=== PATIENT | male | born 1955 | race Caucasian/White ===

== ENCOUNTER → 2018-11-13 | Outpatient (CLI) | payer MEDICARE, OTHER ==
[~2018-11-13] VITALS: Ht 180.3 cm; Wt 113.9 kg
[~2018-11-13] MED LIST: ACETAMINOPHEN 325 MG TABLET PO SCH; AZAT50TA PO; BUPR100T8 PO; BUPR150T20 PO; CEPH500C PO; CLON1TAB27 PO; CLON1TAB3 PO; CYAN100053 IJ; CYCL10TA9 PO; D50KC PO; DIPH1TAB PO; FEXO-104 PO; FISH OIL 1,2001 EAC1 PO; FLT05NA16 NSEACH; FNT50TD TD; FOLI0.4T2 PO; GLIP10TA13 PO; GLIP2.5T15 PO; INFLIXIMAB DYYB IV SCH; LISI1TAB10 PO; MNTL10T PO; MONT10TA21 PO; NADO20TA PO; NDL40T PO; NS IV 1000 ML 1,000 ML IV SCH; NS IV 1000 ML 1,000 ML ONE; NS.65NA45 NSEACH; OMEG1CAP51 PO; ONDN4T PO; PARO20TA57 PO; PNT40TEC PO; POTA10TA17 PO; PRAS1TAB2 PO; PRAS25CA5 PO; PRD10T PO; PROBIOTIC1 EACH PO; REMICADE IJ; SIMV10TA3 PO; SODIUM CHLORIDE IV SCH; TADA2.5T PO; TRAM300T24 PO; TRAM50TA2 PO; VITAMIN B12 IM; [UNRECOGNIZED DRUG - MIXTURE] PO; diphenhydrAMINE 50 MG/ML INJ (BENADRYL) IV SCH
[2018-11-13 13:33] VITALS: BP 127/79
== END ==
LOC: SDC 09:40 → EDSTATUS 13:00
PROVIDERS: ATTEND Pediatrics
DX: K50.90 Crohn's disease, unspecified, without complications (principal)
CPT/HCPCS: 96365; 96366; Q5102

== ENCOUNTER 2018-11-14 18:50 | Emergency (ER) | payer MEDICARE, OTHER ==
[~2018-11-14] VITALS: Ht 182.9 cm; Wt 106.1 kg
[~2018-11-14 18:50] MED LIST changes: -ACETAMINOPHEN 325 MG TABLET PO SCH; -INFLIXIMAB DYYB IV SCH; -NS IV 1000 ML 1,000 ML IV SCH; -NS IV 1000 ML 1,000 ML ONE; -ONDN4T PO; -SODIUM CHLORIDE IV SCH; -diphenhydrAMINE 50 MG/ML INJ (BENADRYL) IV SCH
[2018-11-14] MEDS ORDERED: ASPIRIN 81 MG CHEW (CHILDREN'S ASA) PO ONE (19:00)
[2018-11-14] MEDS ORDERED: ONDANSETRON 4 MG (ZOFRAN) ORAL DISSOLVE TAB ONE (19:11)
[2018-11-14] MEDS ORDERED: PROMETHAZINE INJ 25 MG/ML (PHENERGAN) AMP ONE (19:48)
[2018-11-14 19:51] LABS: BASOPHILS % (AUTO) 0 % (0-10); EOSINOPHILS # (AUTO) 0.2 10^3/uL (0.0-0.3); EOSINOPHILS % (AUTO) 2 % (0-10); HEMATOCRIT 48 % (40-54); LYMPHOCYTES # (AUTO) 1.6 X 10^3 (1.0-4.0); LYMPHOCYTES % (AUTO) 15 % (12-44); MEAN CORPUSCULAR HEMOGLOBIN 33 PG (25-34); MEAN CORPUSCULAR HGB CONC 33 G/DL (32-36); MEAN CORPUSCULAR VOLUME 98 FL (80-99); MONOCYTES # (AUTO) 0.8 X 10^3 (0.0-1.0); MONOCYTES % (AUTO) 7 % (0-12); NEUTROPHILS % (AUTO) 76 % (42-75); PLATELET COUNT 167 10^3/uL (130-400); RED CELL DISTRIBUTION WIDTH 13.5 % (10.0-14.5); WHITE BLOOD COUNT 10.6 10^3/uL (4.3-11.0)
[2018-11-14 20:08] LABS: INR 0.9 (0.8-1.4); PROTHROMBIN TIME PATIENT 12.2 SEC (12.2-14.7)
[2018-11-14 20:11] LABS: ALANINE AMINOTRANSFERASE 33 U/L (0-55); ALKALINE PHOSPHATASE 59 U/L (40-136); AMYLASE 107 U/L (25-125); BILIRUBIN,TOTAL 0.7 MG/DL (0.1-1.0); BUN/CREATININE RATIO 9; CALCIUM 9.9 MG/DL (8.5-10.1); CARBON DIOXIDE 19 MMOL/L (21-32); CHLORIDE 105 MMOL/L (98-107); CREATININE SERUM 1.13 MG/DL (0.60-1.30); GFR ESTIMATED > 60; GLUCOSE 158 MG/DL (70-105); LIPASE 40 U/L (8-78); MAGNESIUM 1.9 MG/DL (1.8-2.4); POTASSIUM 3.9 MMOL/L (3.6-5.0); SODIUM 139 MMOL/L (135-145); TOTAL PROTEIN 7.6 GM/DL (6.4-8.2)
--- NOTE | 2018-11-14 20:14 | Diagnostic Imaging Report ---
EXAMINATION: Chest radiograph, portable AP view. DATE: November 14, 2018 at 1959 hours. INDICATION: 63-year-old male, chest pain. COMPARISON: January 06, 2012. FINDINGS: Heart size and mediastinal contours are unremarkable. There is no identified pneumothorax. There is no large pleural effusion. There is no identified focal airspace consolidation. IMPRESSION: 1. No identified acute cardiopulmonary abnormality. Dictated by: Dictated on workstation # [id number]
[2018-11-14 20:18] LABS: MYOGLOBIN SERUM 83.2 NG/ML (10.0-92.0)
[2018-11-14 20:27] LABS: ALBUMIN 4.2 GM/DL (3.2-4.5)
[2018-11-14] MEDS ORDERED: NS 100 ML (IVPB) BAG IV ONE (21:00)
[2018-11-14] MEDS ORDERED: IOHEXOL 350 MG/ML 150 ML (OMNIPAQUE 350) VIAL IV ONE (21:00)
[2018-11-14] MEDS ORDERED: RECEIVED CONTRAST (Hold Metformin) IV SCH (21:00)
[2018-11-14] MEDS ORDERED: HYOSCYAMINE 0.125 MG (LEVSIN) TAB PO ONE (21:15)
--- NOTE | 2018-11-14 21:59 | Diagnostic Imaging Report ---
PROCEDURE: CT angiography of the chest with contrast. TECHNIQUE: Multiple contiguous axial images were obtained through the chest after uneventful bolus administration of intravenous contrast. 2D reconstructed CTA MIP acquisitions were also performed. DATE: November 14, 2018. COMPARISON: Chest radiograph November 14, 2018. INDICATION: 63-year-old male, chest pain and difficulty breathing. FINDINGS: There is a 3 mm calcified right middle lobe granuloma on axial image 95. There is very mild reticular nodularity in the left lower lobe on axial image 105 and adjacent sequential images. This is also present in the right lower lobe on axial image 81. There is also very subtle tree-in-bud nodularity in the left upper lobe on axial image 70 and left lower lobe on the same image and adjacent sequential images. This is not radiographically visible. There is no additional focal airspace consolidation. There is no pneumothorax. There is no pleural effusion. The central airways are patent. There is no identified central or segmental pulmonary embolus. The main pulmonary artery is normal in caliber. The heart is not enlarged. There is no pericardial effusion. There are mild atherosclerotic calcifications present. There is no identified abnormally enlarged mediastinal, hilar, or axillary lymph node which meets CT size criteria for adenopathy. The patient is status post cholecystectomy. There are low-attenuation renal lesions partially imaged which may relate to a cyst but cannot be definitively characterized. Additional evaluation of the imaged portions of the upper abdomen is unremarkable. There are degenerative changes of the spine. There is no identified acute bony abnormality. IMPRESSION: CT CHEST. 1. Subtle multifocal areas of tree-in-bud nodularity bilaterally likely relating to a process spreading via endobronchial means which is most typically an infectious bronchiolitis or aspiration. 2. No identified pulmonary embolus. Dictated by: Dictated on workstation # [id number]
[2018-11-14] MEDS ORDERED: NS IV 1000 ML 1,000 ML ONE (22:27)
[2018-11-14] MEDS ORDERED: diphenhydrAMINE 50 MG/ML INJ (BENADRYL) IVP ONE (23:15)
--- NOTE | 2018-11-14 23:26 | ED Chest Pain ---
General Chief Complaint: Chest Pain Stated Complaint: CHEST PAINS Nursing Sepsis Screen: No Definite Risk Source: patient Exam Limitations: no limitations History of Present Illness Date Seen by Provider: Nov 14, 2018 Time Seen by Provider: 18:56 Initial Comments 63 year old male who presents to the emergency room with complains of nausea and vomiting that started this morning around 7:00 and chest pains that started at noon today. 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 He denies shortness of breath. Timing/Duration: 4-6 hours Severity/Quality: pressure Location: epigastric Radiation: no radiation ASA po FIRE WATCHER: No NTG SL FIRE WATCHER: No Associated Symptoms: nausea/vomiting Allergies and Home Medications Allergies Coded Allergies: hydromorphone HCl (Unverified Allergy, Unknown, HIVES, 11/14/18) meperidine HCl (Unverified Allergy, Unknown, N/V, 11/14/18) oxycodone (Unverified Allergy, Unknown, HIVES, 11/14/18) morphine (Unverified Adverse Reaction, Severe, HEART STOPPED, 01/06/12) Home Medications Azathioprine 50 Mg Tablet, 150 MG PO BID, (Reported) Cyanocobalamin 1,000 Mcg/Ml Vial, 1,000 MCG IJ TWICE A MONTH, (Reported) LAST DOSE 12-26-12 Diphenoxylate Hcl/Atrop Sulf 1 Each Tablet, 2 TAB PO UP TO 4 TIMES DAILY PRN, ( Reported) PRN DIARRHEA Ergocalciferol 50,000 Unit Capsule, 50,000 UNIT PO WEEKLY ON FRIDAYS, (Reported) Folic Acid 0.4 Mg Tablet, 0.4 MG PO DAILY, (Reported) Hctz/Lisinopril 1 Tab Tablet, 20-25 MG PO DAILY, (Reported) Lactobacillus Rhamnosus Gg 1 Each Capsule, 1 EACH PO DAILY, (Reported) Montelukast Sodium 10 Mg Tablet, 10 MG PO HS, (Reported) Nadolol 40 Mg Tab, 40 MG PO TID, (Reported) [place]-3 Fatty Acids/Fish Oil 1 Each Capsule, 1,000 MG PO DAILY, (Reported) Ondansetron HCl 4 Mg Tab, 4 MG PO Q4H PRN for NAUSEA/VOMITING-1ST LINE Prescribed by: LUIZA JUÁREZ on 11/15/18 0010 Pantoprazole Sod 40 Mg Tab, 40 MG PO DAILY, (Reported) Paroxetine Hcl 20 Mg Tablet, 20 MG PO DAILY, (Reported) Potassium Citrate 10 Meq Tablet.sa, 20 MEQ PO BID, (Reported) Prednisone 10 Mg Tab, 10 MG PO UD PRN, (Reported) TAKES 5 WEEK TAPER DOSE OF 50MG FOR 1 WEEK, 40MG FOR 1 WEEK, 30MG FOR 1 WEEK , 20MG FOR 1 WEEK, 10MG FOR 1 WEEK PRN CHRON'S FLARE UP Simvastatin 10 Mg Tablet, 10 MG PO HS, (Reported) Tadalafil 2.5 Mg Tablet, 5 MG PO DAILY PRN, (Reported) PRN ED TAKES 1 TAB OF 5MG PRN Tramadol Hcl 50 Mg Tablet, 100 MG PO TID PRN, (Reported) PRN PAIN Patient Home Medication List Home Medication List Reviewed: Yes Review of Systems Review of Systems Constitutional: no symptoms reported, see HPI Cardiovascular: See HPI, Chest Pain Gastrointestinal: See HPI, Nausea, Vomiting All Other Systems Reviewed Negative Unless Noted: Yes Past Pxqplpg-Zhtszw-Lvtrwg Hx Past Med/Social Hx: Reviewed Nursing Past Med/Soc Hx Patient Social History Alcohol Use: Denies Use Recreational Drug Use: No Smoking Status: Never a Smoker Recent Foreign Travel: No Contact w/Someone Who Travel: No Recent Infectious Disease Expo: No Recent Hopitalizations: No Immunizations Up To Date PED Vaccines UTD: Yes Date of Pneumonia Vaccine: Aug 03, 2010 Date of Influenza Vaccine: Jul 03, 2012 Seasonal Allergies Seasonal Allergies: Yes Past Medical History Surgeries: Yes (PT ADMITTED FROM TESTICULAR SURGERY, HERNIA REPAIR) Tonsillectomy, Transurethral Resection Respiratory: No Cardiac: Yes Hypertension Neurological: No Reproductive Disorders: No Sexually Transmitted Disease: No Genitourinary: Yes Kidney Stones Gastrointestinal: Yes Crohns Disease Musculoskeletal: No Endocrine: Yes (CUSHINGS DISEASE) Adrenal Disease HEENT: No 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 0.0oz. 106.611676ez; BMI Method:Stated General Appearance: No Apparent Distress, WD/WN Neck: Full Range of Motion, Normal Inspection, Non Tender Respiratory: Lungs Clear, Normal Breath Sounds, No Accessory Muscle Use, No Respiratory Distress, Other (epigastric tenderness) Cardiovascular: Regular Rate, Rhythm, No Edema, No Gallop, No JVD, No Murmur, Normal Peripheral Pulses Gastrointestinal: Normal Bowel Sounds, No Organomegaly, No Pulsatile Mass Extremity: Normal Capillary Refill, Normal Inspection, Normal Range of Motion, Non Tender, No Calf Tenderness, No Pedal Edema Neurologic/Psychiatric: Alert, Oriented x3, Normal Mood/Affect Skin: Normal Color, Warm/Dry Progress/Results/Core Measures Results/Orders Lab Results Laboratory Tests Test 11/14/18 19:42 11/14/18 21:48 Range/Units White Blood Count 10.6 4.3-11.0 10^3/uL Red Blood Count 4.91 4.35-5.85 10^6/uL Hemoglobin 16.0 13.3-17.7 G/DL Hematocrit 48 40-54 % Mean Corpuscular Volume 98 80-99 FL Mean Corpuscular Hemoglobin 33 25-34 PG Mean Corpuscular Hemoglobin Concent 33 32-36 G/DL Red Cell Distribution Width 13.5 10.0-14.5 % Platelet Count 167 130-400 10^3/uL Mean Platelet Volume 11.0 H 7.4-10.4 FL Neutrophils (%) (Auto) 76 H 42-75 % Lymphocytes (%) (Auto) 15 12-44 % Monocytes (%) (Auto) 7 0-12 % Eosinophils (%) (Auto) 2 0-10 % Basophils (%) (Auto) 0 0-10 % Neutrophils # (Auto) 8.0 H 1.8-7.8 X 10^3 Lymphocytes # (Auto) 1.6 1.0-4.0 X 10^3 Monocytes # (Auto) 0.8 0.0-1.0 X 10^3 Eosinophils # (Auto) 0.2 0.0-0.3 10^3/uL Basophils # (Auto) 0.0 0.0-0.1 10^3/uL Prothrombin Time 12.2 12.2-14.7 SEC INR Comment 0.9 0.8-1.4 Activated Partial Thromboplast Time 27 24-35 SEC D-Dimer 0.56 H 0.00-0.49 UG/ML Sodium Level 139 135-145 MMOL/L Potassium Level 3.9 3.6-5.0 MMOL/L Chloride Level 105 98-107 MMOL/L Carbon Dioxide Level 19 L 21-32 MMOL/L Anion Gap 15 H 5-14 MMOL/L Blood Urea Nitrogen 10 7-18 MG/DL Creatinine 1.13 0.60-1.30 MG/DL Estimat Glomerular Filtration Rate > 60 BUN/Creatinine Ratio 9 Glucose Level 158 H 70-105 MG/DL Calcium Level 9.9 8.5-10.1 MG/DL Corrected Calcium 9.7 8.5-10.1 MG/DL Magnesium Level 1.9 1.8-2.4 MG/DL Total Bilirubin 0.7 0.1-1.0 MG/DL Aspartate Amino Transf (AST/SGOT) 35 H 5-34 U/L Alanine Aminotransferase (ALT/SGPT) 33 0-55 U/L Alkaline Phosphatase 59 40-136 U/L Myoglobin 83.2 10.0-92.0 NG/ML Troponin I < 0.028 < 0.028 <0.028 NG/ML B-Type Natriuretic Peptide 19.2 <100.0 PG/ML Total Protein 7.6 6.4-8.2 GM/DL Albumin 4.2 3.2-4.5 GM/DL Amylase Level 107 25-125 U/L Lipase 40 8-78 U/L My Orders Orders - BERNOT,LUIZA Cbc With Automated Diff (11/14/18 18:56) Magnesium (11/14/18 18:56) Chest 1 View, Ap/Pa Only (11/14/18 18:56) Ekg Tracing (11/14/18 18:56) Cardiac Profile 1 (11/14/18 18:56) Comprehensive Metabolic Panel (11/14/18 18:56) Myoglobin Serum (11/14/18 18:56) Protime With Inr (11/14/18 18:56) Partial Thromboplastin Time (11/14/18 18:56) O2 (11/14/18 18:56) Monitor-Rhythm Ecg Trace Only (11/14/18 18:56) Aspirin Chewable Tablet (Baby Aspirin Ch (11/14/18 19:00) Saline Lock/Iv-Start (11/14/18 18:56) Lipase (11/14/18 18:56) Amylase (11/14/18 18:56) BNP (11/14/18 18:56) Fibrin Degradation Products (11/14/18 18:56) Ondansetron Oral Dissolve Tab (Zofran (11/14/18 19:11) Promethazine Injection (Phenergan Injec (11/14/18 19:48) Ct Angio Chest W (11/14/18 20:54) Iohexol Injection (Omnipaque 350 Mg/Ml 1 (11/14/18 21:00) Contrast Received (Contrast Received) (11/14/18 21:00) Ns (Ivpb) (Sodium Chloride 0.9% Ivpb Bag (11/14/18 21:00) Hyoscyamine Sl Tablet (Levsin Sl Tablet) (11/14/18 21:15) Troponin I (11/14/18 21:32) Ns Iv 1000 Ml (Sodium Chloride 0.9%) (11/14/18 22:27) Diphenhydramine Injection (Benadryl Inje (11/14/18 23:15) Lorazepam Injection (Ativan Injection) (11/14/18 23:30) Rx-Ondansetron Po (Rx-Zofran Po) (11/15/18 00:39) Medications Given in ED Vital Signs/I&O 11/14/18 11/14/18 11/14/18 11/15/18 18:55 18:55 18:55 00:46 Temp 98.2 98.2 Pulse 89 99 Resp 22 20 B/P (MAP) 118/75 (89) 131/72 (91) Pulse Ox 98 96 96 O2 Delivery Room Air Room Air Room Air Room Air Blood Pressure Mean: 89 Progress Progress Note : Time: 21:00 Progress Note I have seen and evaluated the patient I have informed him of his laboratory findings and the need for a CT of his chest. He agrees with further imaging. He is no longer nauseated at this time. 2350: The patient had developed restless legs after medications. Ativan was ordered and has resolved the restless legs. I have informed him of his imaging studies. He agrees with plan of care, plans for discharge, return precautions were given. Initial ECG Impression Date: Nov 10, 2018 Initial ECG Impression Time: 18:57 Initial ECG Rate: 89 Initial ECG Rhythm: Normal Sinus Initial ECG Impression: Normal Initial ECG Comparisson: No Previous ECG Available Diagnostic Imaging Diagonstic Imaging: Xray, CT Plain Films/CT/US/NM/MRI: chest Comments NAME: DONOVAN SANCHEZ [facility] REC#: [id number] PHYSICIAN: LUIZA JUÁREZ CC: LUIZA JUÁREZ; JUANI CAMILO MD Page 2 of 2 RADIOLOGY REPORT [facility] [place] CC: LUIZA JUÁREZ; JUANI CAMILO MD Page 1 of 1 RADIOLOGY REPORT NAME: DONOVAN SANCHEZ [facility] REC#: [id number] PT STATUS: DEP ER : 1955 PHYSICIAN: LUIZA JUÁREZ ADMIT DATE: 11/14/18/ER Signed Date of Exam: 11/14/18 CT ANGIO CHEST W PROCEDURE: CT angiography of the chest with contrast. TECHNIQUE: Multiple contiguous axial images were obtained through the chest after uneventful bolus administration of intravenous contrast. 2D reconstructed CTA MIP acquisitions were also performed. DATE: November 14, 2018. COMPARISON: Chest radiograph November 14, 2018. INDICATION: 63-year-old male, chest pain and difficulty breathing. FINDINGS: There is a 3 mm calcified right middle lobe granuloma on axial image 95. There is very mild reticular nodularity in the left lower lobe on axial image 105 and adjacent sequential images. This is also present in the right lower lobe on axial image 81. There is also very subtle tree-in-bud nodularity in the left upper lobe on axial image 70 and left lower lobe on the same image and adjacent sequential images. This is not radiographically visible. There is no additional focal airspace consolidation. There is no pneumothorax. There is no pleural effusion. The central airways are patent. There is no identified central or segmental pulmonary embolus. The main pulmonary artery is normal in caliber. The heart is not enlarged. There is no pericardial effusion. There are mild atherosclerotic calcifications present. There is no identified abnormally enlarged mediastinal, hilar, or axillary lymph node which meets CT size criteria for adenopathy. The patient is status post cholecystectomy. There are low-attenuation renal lesions partially imaged which may relate to a cyst but cannot be definitively characterized. Additional evaluation of the imaged portions of the upper abdomen is unremarkable. There are degenerative changes of the spine. There is no identified acute bony abnormality. IMPRESSION: CT CHEST. 1. Subtle multifocal areas of tree-in-bud nodularity bilaterally likely relating to a process spreading via endobronchial means which is most typically an infectious bronchiolitis or aspiration. 2. No identified pulmonary embolus. Dictated by: Dictated on workstation # [id number] Dict: 11/14/182150 Trans: 11/15/181704 Interpreted by: JUANI CAMILO MD Electronically signed by: JUANI CAMILO MD 11/15/181704 NAME: DONOVAN SANCHEZ [facility] REC#: [id number] PHYSICIAN: LUIZA JUÁREZ CC: LUIZA JUÁREZ; JUANI CAMILO MD Page 1 of 1 RADIOLOGY REPORT [facility] [place] CC: LUIZA JUÁREZ; JUANI CAMILO MD Page 1 of 1 RADIOLOGY REPORT NAME: DONOVAN SANCHEZ [facility] REC#: [id number] PT STATUS: DEP ER : 1955 PHYSICIAN: LUIZA JUÁREZ ADMIT DATE: 11/14/18/ER Signed Date of Exam: 11/14/18 CHEST 1 VIEW, AP/PA ONLY EXAMINATION: Chest radiograph, portable AP view. DATE: November 14, 2018 at 1959 hours. INDICATION: 63-year-old male, chest pain. COMPARISON: January 06, 2012. FINDINGS: Heart size and mediastinal contours are unremarkable. There is no identified pneumothorax. There is no large pleural effusion. There is no identified focal airspace consolidation. IMPRESSION: 1. No identified acute cardiopulmonary abnormality. Dictated by: Dictated on workstation # [id number] Dict: 11/14/182011 Trans: 11/15/181702 Interpreted by: JUANI CAMILO MD Electronically signed by: JUANI CAMILO MD 11/15/181702 Reviewed: Reviewed by Ok Departure Impression Primary Impression: Chest pain Additional Impressions: Nausea and vomiting reaction to Remicade Disposition: 01 HOME, SELF-CARE Condition: Stable/Unchanged Departure-Patient Inst. Decision time for Depature: 00:04 Referrals: MK CRONIN MD (PCP/Family) Primary Care Physician Patient Instructions: Chest Pain That Is Not Caused by the Heart (DC) Add. Discharge Instructions: Take medications as directed. Follow-up with Dr. Cronin by calling his office tomorrow morning for an appointment time and before you take another dose of your Remicade. Return back to the emergency room for worsening symptoms or concerns as needed. All discharge instructions reviewed with patient and/or family. Voiced understanding. Scripts Ondansetron HCl (Zofran) 4 Mg Tab 4 MG PO Q4H PRN for NAUSEA/VOMITING-1ST LINE, #14 TAB Prov: LUIZA JUÁREZ 11/15/18 LUIZA JUÁREZ Nov 14, 2018 23:26
[2018-11-14] MEDS ORDERED: LORazepam INJ 2 MG/ML (ATIVAN) VIAL IVP ONE (23:30)
[2018-11-15] MEDS ORDERED: ONDN4T PO (00:10)
[2018-11-15] MEDS ORDERED: RX-ONDANSETRON 4 MG ODT (ZOFRAN) PPK #4 ONE (00:39)
[2018-11-15 00:46] VITALS: BP 131/72
== END 2018-11-15 00:46 | disposition home or self-care (01) ==
LOC: EDUNIT# 18:50 → ER 18:51
DX: R07.89 Other chest pain (principal); R11.2 Nausea with vomiting, unspecified; T50.995A Adverse effect of other drugs, medicaments and biological substances, initial encounter; I10 Essential (primary) hypertension; Z98.890 Other specified postprocedural states; Z87.19 Personal history of other diseases of the digestive system; Z87.442 Personal history of urinary calculi; Z88.5 Allergy status to narcotic agent; Z88.8 Allergy status to other drugs, medicaments and biological substances; Z79.52 Long term (current) use of systemic steroids; Z90.89 Acquired absence of other organs; Z90.79 Acquired absence of other genital organ(s)
CPT/HCPCS: 36415; 71045; 71275; 80053; 82150; 83690; 83735; 83874; 83880; 84484; 85025; 85379; 85610; 85730; 93005; 93041

== ENCOUNTER 2018-11-16 11:53 | Inpatient (IN) | payer MEDICARE, OTHER ==
[~2018-11-16] VITALS: Ht 182.9 cm; Wt 115.2 kg
[2018-11-16] VITALS (8 sets, daily range): BP systolic 85–149; BP diastolic 42–94
[~2018-11-16 11:53] MED LIST changes: +ONDN4T PO
[2018-11-16] MEDS: NS IV 1000 ML 1,000 ML IV SCH ×4 (12:55→22:19)
[2018-11-16] MEDS ORDERED: NS IV 500 ML 500 ML ONE (13:02)
[2018-11-16 13:03] LABS: BASOPHILS # (AUTO) 0.1 10^3/uL (0.0-0.1); BASOPHILS % (AUTO) 0 % (0-10); EOSINOPHILS # (AUTO) 0.1 10^3/uL (0.0-0.3); EOSINOPHILS % (AUTO) 0 % (0-10); HEMATOCRIT 43 % (40-54); HEMOGLOBIN 14.3 G/DL (13.3-17.7); LYMPHOCYTES # (AUTO) 0.6 X 10^3 (1.0-4.0); LYMPHOCYTES % (AUTO) 2 % (12-44); MEAN CORPUSCULAR HEMOGLOBIN 32 PG (25-34); MEAN CORPUSCULAR HGB CONC 33 G/DL (32-36); MEAN CORPUSCULAR VOLUME 96 FL (80-99); MEAN PLATELET VOLUME 11.1 FL (7.4-10.4); MONOCYTES # (AUTO) 1.4 X 10^3 (0.0-1.0); MONOCYTES % (AUTO) 6 % (0-12); NEUTROPHILS # (AUTO) 23.9 X 10^3 (1.8-7.8); NEUTROPHILS % (AUTO) 92 % (42-75); PLATELET COUNT 130 10^3/uL (130-400); RED CELL DISTRIBUTION WIDTH 13.6 % (10.0-14.5)
[2018-11-16] MEDS ORDERED: NS IV 500 ML 500 ML IV ONE (13:03)
--- NOTE | 2018-11-16 13:04 | Diagnostic Imaging Report ---
PATIENT HISTORY: Central line placement. TECHNIQUE: Frontal view of the chest COMPARISON: 11/14/2018 FINDINGS: Lung volumes are low. No focal consolidation is seen. There is no pleural effusion or pneumothorax. The cardiac silhouette is upper normal in size. The right-sided jugular line projects over the low SVC. IMPRESSION: 1. The right jugular line tip projects over the low SVC. 2. Low lung volumes with no acute pulmonary abnormality seen. Dictated by: Dictated on workstation # [id number]
--- NOTE | 2018-11-16 13:13 | ED General ---
General Chief Complaint: Hypotension Stated Complaint: LOW BP/SOA Source of Information: Patient, Family Exam Limitations: No Limitations (VIKASH CERVANTES STUDENT) History of Present Illness Date Seen by Provider: Nov 16, 2018 Time Seen by Provider: 12:10 Initial Comments 63 y/o M presented with his daughter for hypotension and shortness of breath. He has been to emergency earlier this week (11/14/18) for uncontrolled nausea and vomiting along with chest pain. He recently was started on Remicade and ever since then has been vomiting. He was treated in the ED at and returned home with zofran and return precautions. His daughter noted that he has still been vomiting and was dizzy last night but refused to go to the hospital. Today , they could not find a blood pressure on him and he was increasingly dizzy and short of breath. He denied fever, chills, and sweats. Timing/Duration: 2-3 Days Severity: Severe Associated Systoms: No Chest Pain, No Cough, No Fever/Chills; Malaise, Nausea/ Vomiting, Shortness of Air; No Syncope (VIKASH CERVANTES STUDENT) Initial Comments Patient also reports that he is having his Crohn's diarrhea and that it is significantly watery and persistent. Denies blood in his urine or stool. Timing/Duration: 2-3 Days Severity: Severe Associated Systoms: Malaise, Nausea/Vomiting, Shortness of Air (GI MENDEZ MD) Allergies and Home Medications Allergies Coded Allergies: hydromorphone HCl (Unverified Allergy, Unknown, HIVES, 11/14/18) meperidine HCl (Unverified Allergy, Unknown, N/V, 11/14/18) oxycodone (Unverified Allergy, Unknown, HIVES, 11/14/18) morphine (Unverified Adverse Reaction, Severe, HEART STOPPED, 01/06/12) Home Medications Azathioprine 50 Mg Tablet, 150 MG PO BID, (Reported) Cyanocobalamin 1,000 Mcg/Ml Vial, 1,000 MCG IJ TWICE A MONTH, (Reported) LAST DOSE 12-26-12 Diphenoxylate Hcl/Atrop Sulf 1 Each Tablet, 2 TAB PO UP TO 4 TIMES DAILY PRN, ( Reported) PRN DIARRHEA Ergocalciferol 50,000 Unit Capsule, 50,000 UNIT PO WEEKLY ON FRIDAYS, (Reported) Folic Acid 0.4 Mg Tablet, 0.4 MG PO DAILY, (Reported) Hctz/Lisinopril 1 Tab Tablet, 20-25 MG PO DAILY, (Reported) Lactobacillus Rhamnosus Gg 1 Each Capsule, 1 EACH PO DAILY, (Reported) Montelukast Sodium 10 Mg Tablet, 10 MG PO HS, (Reported) Nadolol 40 Mg Tab, 40 MG PO TID, (Reported) Genoa-3 Fatty Acids/Fish Oil 1 Each Capsule, 1,000 MG PO DAILY, (Reported) Ondansetron HCl 4 Mg Tab, 4 MG PO Q4H PRN for NAUSEA/VOMITING-1ST LINE Prescribed by: LUIZA JUÁREZ on 11/15/18 0010 Pantoprazole Sod 40 Mg Tab, 40 MG PO DAILY, (Reported) Paroxetine Hcl 20 Mg Tablet, 20 MG PO DAILY, (Reported) Potassium Citrate 10 Meq Tablet.sa, 20 MEQ PO BID, (Reported) Prednisone 10 Mg Tab, 10 MG PO UD PRN, (Reported) TAKES 5 WEEK TAPER DOSE OF 50MG FOR 1 WEEK, 40MG FOR 1 WEEK, 30MG FOR 1 WEEK , 20MG FOR 1 WEEK, 10MG FOR 1 WEEK PRN CHRON'S FLARE UP Simvastatin 10 Mg Tablet, 10 MG PO HS, (Reported) Tadalafil 2.5 Mg Tablet, 5 MG PO DAILY PRN, (Reported) PRN ED TAKES 1 TAB OF 5MG PRN Tramadol Hcl 50 Mg Tablet, 100 MG PO TID PRN, (Reported) PRN PAIN Patient Home Medication List Home Medication List Reviewed: Yes (VIKASH CERVANTES) Home Medication List Reviewed: Yes (GI MENDEZ MD) Review of Systems Review of Systems Constitutional: No chills; dizziness; No fever; malaise, weakness EENTM: no symptoms reported Respiratory: No cough; dyspnea on exertion, short of breath; No wheezing Cardiovascular: No chest pain, No palpitations, No syncope Gastrointestinal: No hematemesis; nausea, vomiting Genitourinary: No dysuria, No frequency Musculoskeletal: No back pain, No joint pain; muscle cramps Skin: change in color (bruising from multiple attempts at IV placement last visit); No lesions, No lumps, No rash Psychiatric/Neurological: Denies Headache, Denies Numbness; Weakness (VIKASH CARLOS STUDENT) Gastrointestinal: No abdominal pain; diarrhea, nausea, vomiting (GI MENDEZ MD) All Other Systems Reviewed Negative Unless Noted: Yes (GI MENDEZ MD) Past Ipczfzb-Xabbgr-Snihdh Hx Past Med/Social Hx: Reviewed Nursing Past Med/Soc Hx (GI MENDEZ MD) Patient Social History Recent Foreign Travel: No Contact w/Someone Who Travel: No Recent Hopitalizations: No (VIKASH CERVANTES) Immunizations Up To Date PED Vaccines UTD: Yes Date of Pneumonia Vaccine: Aug 03, 2010 Date of Influenza Vaccine: Jul 03, 2012 (VIKASH CERVANTES) Seasonal Allergies Seasonal Allergies: Yes (VIKASH CERVANTES) Past Medical History Surgeries: Yes (PT ADMITTED FROM TESTICULAR SURGERY, HERNIA REPAIR) Tonsillectomy, Transurethral Resection Respiratory: No Cardiac: Yes Hypertension Neurological: No Reproductive Disorders: No Sexually Transmitted Disease: No Genitourinary: Yes Kidney Stones Gastrointestinal: Yes Crohns Disease Musculoskeletal: No Endocrine: Yes (CUSHINGS DISEASE) Adrenal Disease HEENT: No 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) Skin (basal cell CA, successfully removed) Did You Recieve Any Treatments: Yes What Type of Treatment Did You: Surgical Intervention Psychosocial: No Integumentary: No Blood Disorders: No (VIKASH CERVANTES) Family Medical History Reviewed Nursing Family Hx (VIKASH CERVANTES) Reviewed Nursing Family Hx (GI MENDEZ MD) No Pertinent Family Hx (VIKASH CERVANTES) No Pertinent Family Hx (GI MENDEZ MD) Physical Exam Vital Signs Vital Signs - First Documented 11/16/18 11:55 Temp 99.1 Pulse 90 Resp 25 B/P (MAP) 82/44 (57) Pulse Ox 97 O2 Delivery Room Air (GI MENDEZ MD) Vital Signs Capillary Refill : Less Than 3 Seconds (VIKASH CERVANTES STUDENT) Height, Weight, BMI Height: 6'0" Weight: 234lbs. 0.0oz. [id number]; BMI Method:Stated General Appearance: Chronically ill, Mild Distress, Obese Eyes: Bilateral Eye Normal Inspection, Bilateral Eye PERRL, Bilateral Eye EOMI HEENT: PERRL/EOMI, TMs Normal, Pharyngeal Erythema, Other (dry mucus membranes) Neck: Full Range of Motion, Normal Inspection, Non Tender, Supple Respiratory: Chest Non Tender, Lungs Clear, Normal Breath Sounds, No Accessory Muscle Use, No Respiratory Distress Cardiovascular: Regular Rate, Rhythm, No Edema, No Gallop, No JVD, No Murmur, Other (hypotension ) Gastrointestinal: Normal Bowel Sounds, Non Tender, Soft Back: Normal Inspection, No CVA Tenderness, No Vertebral Tenderness Extremity: Normal Inspection, Normal Range of Motion, Non Tender, No Calf Tenderness, No Pedal Edema Neurologic/Psychiatric: Alert, Oriented x3, No Motor/Sensory Deficits, Normal Mood/Affect Skin: Normal Color, Warm/Dry (VIKASH CERVANTES STUDENT) General Appearance: Chronically ill, Mild Distress, Obese HEENT: Pharyngeal Erythema, Other (dry mucus membranes) Neck: Non Tender, Supple Respiratory: Lungs Clear, Normal Breath Sounds Cardiovascular: Regular Rate, Rhythm, No Edema, No Murmur Gastrointestinal: Non Tender, Soft Back: Normal Inspection, No CVA Tenderness, No Vertebral Tenderness Extremity: Normal Inspection, Normal Range of Motion, Non Tender, No Calf Tenderness, No Pedal Edema Neurologic/Psychiatric: Alert, Oriented x3, Normal Mood/Affect Skin: Warm/Dry, Pallor (GI MENDEZ MD) Focused Exam Lactate Level 11/16/18 12:55: Lactic Acid Level 1.92 (GI MENDEZ MD) Lactic Acid Level Laboratory Tests Test 11/16/18 12:55 Lactic Acid Level 1.92 MMOL/L (0.50-2.00) (GI MENDEZ MD) Procedures/Interventions Lumen: triple Central Line Procedure: betadine prep, sterile drapes applied, sterile dressing applied Position: internal jugular (R) Anesthesia: Lidocaine Volume Anesthetic (ccs): 5 Complications: none Post Position: sutured, good blood return, position confirmed w/ CXR Central line placed due to significant hypotension and inability to get peripheral access. Also need for blood draws and likely need for blood pressure support. Discussed risk and benefits with patient who agreed. Central line placed times one stick with ultrasound guidance without complications. Tolerated procedure well with no complications. (GI MENDEZ MD) Progress/Results/Core Measures Suspected Sepsis SIRS Temperature:97.6 Pulse: 95 Respiratory Rate: 18 Laboratory Tests 11/16/18 12:55: White Blood Count 26.0H Blood Pressure 149 /94 Mean: 112 11/16/18 12:55: Lactic Acid Level 1.92 Laboratory Tests 11/16/18 12:55: Platelet Count 130 (VIKASH CERVANTES Dorina CYNTHIA) Results/Orders Lab Results Laboratory Tests Test 11/16/18 12:55 11/16/18 13:20 Range/Units White Blood Count 26.0 H 4.3-11.0 10^3/uL Red Blood Count 4.50 4.35-5.85 10^6/uL Hemoglobin 14.3 13.3-17.7 G/DL Hematocrit 43 40-54 % Mean Corpuscular Volume 96 80-99 FL Mean Corpuscular Hemoglobin 32 25-34 PG Mean Corpuscular Hemoglobin Concent 33 32-36 G/DL Red Cell Distribution Width 13.6 10.0-14.5 % Platelet Count 130 130-400 10^3/uL Mean Platelet Volume 11.1 H 7.4-10.4 FL Neutrophils (%) (Auto) 92 H 42-75 % Lymphocytes (%) (Auto) 2 L 12-44 % Monocytes (%) (Auto) 6 0-12 % Eosinophils (%) (Auto) 0 0-10 % Basophils (%) (Auto) 0 0-10 % Neutrophils # (Auto) 23.9 H 1.8-7.8 X 10^3 Lymphocytes # (Auto) 0.6 L 1.0-4.0 X 10^3 Monocytes # (Auto) 1.4 H 0.0-1.0 X 10^3 Eosinophils # (Auto) 0.1 0.0-0.3 10^3/uL Basophils # (Auto) 0.1 0.0-0.1 10^3/uL Neutrophils % (Manual) 72 % Lymphocytes % (Manual) 2 % Monocytes % (Manual) 4 % Eosinophils % (Manual) 0 % Basophils % (Manual) 0 % Band Neutrophils 21 % Reactive Lymphocytes 1 % Toxic Granulation 3+ Blood Morphology Comment NORMAL Prothrombin Time 14.2 12.2-14.7 SEC INR Comment 1.1 0.8-1.4 Activated Partial Thromboplast Time 32 24-35 SEC Sodium Level 130 L 135-145 MMOL/L Potassium Level 3.5 L 3.6-5.0 MMOL/L Chloride Level 100 98-107 MMOL/L Carbon Dioxide Level 17 L 21-32 MMOL/L Anion Gap 13 5-14 MMOL/L Blood Urea Nitrogen 24 H 7-18 MG/DL Creatinine 3.12 #H 0.60-1.30 MG/DL Estimat Glomerular Filtration Rate 20 BUN/Creatinine Ratio 8 Glucose Level 116 H 70-105 MG/DL Lactic Acid Level 1.92 0.50-2.00 MMOL/L Calcium Level 8.5 8.5-10.1 MG/DL Corrected Calcium 8.7 8.5-10.1 MG/DL Total Bilirubin 1.1 H 0.1-1.0 MG/DL Aspartate Amino Transf (AST/SGOT) 43 H 5-34 U/L Alanine Aminotransferase (ALT/SGPT) 32 0-55 U/L Alkaline Phosphatase 38 L 40-136 U/L Troponin I < 0.028 <0.028 NG/ML Total Protein 6.9 6.4-8.2 GM/DL Albumin 3.7 3.2-4.5 GM/DL Urine Color YELLOW Urine Clarity SLIGHTLY CLOUDY Urine pH 5 5-9 Urine Specific [place] 1.030 H 1.016-1.022 Urine Protein 3+ H NEGATIVE Urine Glucose (UA) 1+ H NEGATIVE Urine Ketones 1+ H NEGATIVE Urine Nitrite POSITIVE H NEGATIVE Urine Bilirubin 1+ H NEGATIVE Urine Urobilinogen 1 NORMAL MG/DL Urine Leukocyte Esterase 1+ H NEGATIVE Urine RBC (Auto) 4+ H NEGATIVE Urine RBC RARE /HPF Urine WBC 0-2 /HPF Urine Squamous Epithelial Cells RARE /HPF Urine Renal Epithelial Cells NONE /HPF Urine Crystals PRESENT H /LPF Urine Amorphous Sediment MOD ZUHAIR URATES H /LPF Urine Bacteria MODERATE H /HPF Urine Casts PRESENT /LPF Urine Hyaline Casts 10-25 H /LPF Urine Mucus NEGATIVE /LPF Urine Culture Indicated NO (GI MENDEZ MD) My Orders Orders - GI MENDEZ MD Saline Lock/Iv-Start (11/16/18 13:03) Ns Iv 500 Ml (Sodium Chloride 0.9%) (11/16/18 13:03) Ns Iv 500 Ml (Sodium Chloride 0.9%) (11/16/18 13:02) Norepinephrine (Levophed) (11/16/18 14:00) Ns (Ivpb) (Sodium Chloride 0.9%) (11/16/18 13:53) Norepinephrine (Levophed) (11/16/18 13:53) Saline Lock/Iv-Start (11/16/18 14:05) Ns Iv 1000 Ml (Sodium Chloride 0.9%) (11/16/18 14:05) Hydrocortisone Injection (Solu-Cortef In (11/16/18 14:15) Ct Abdomen/Pelvis Wo (11/16/18 14:20) Piperacillin Sodium/Tazobactam (Zosyn Vi (11/16/18 14:30) (GI MENDEZ MD) Medications Given in ED Current Medications Medications Dose Ordered Sig/Rui Route Start Time Stop Time Status Last Admin Dose Admin Hydrocortisone Sodium Succinate 100 mg ONCE ONCE IV 11/16/18 14:15 11/16/18 14:16 DC 11/16/18 14:39 100 MG Piperacillin Sod/ Tazobactam Sod 4.5 gm/Sodium Chloride 100 ml @ 200 mls/hr ONCE ONCE IV 11/16/18 14:30 11/16/18 14:59 DC 11/16/18 14:39 200 MLS/HR Sodium Chloride 500 ml @ 0 mls/hr Q0M ONCE IV 11/16/18 13:03 11/16/18 13:05 DC 11/16/18 13:28 0 MLS/HR Sodium Chloride 1,000 ml @ 250 mls/hr Q4H ONCE IV 11/16/18 14:05 11/16/18 18:04 11/16/18 14:10 250 MLS/HR (GI MENDEZ MD) Vital Signs/I&O 11/16/18 11/16/18 11:55 12:50 Temp 99.1 97.6 Pulse 90 95 Resp 25 18 B/P (MAP) 82/44 (57) 149/94 (112) Pulse Ox 97 95 O2 Delivery Room Air (GI MENDEZ MD) Vital Signs/I&O Capillary Refill : Less Than 3 Seconds (VIKASH CERVANTES STUDENT) Blood Pressure Mean: 112 Progress Note : Time: 12:10 Progress Note Patient hypotensive with a MAP of 59. Orders for labs and 3.5 L IVF put in by Dr. Mendez. 1225: central line placed, CXR and EKG obtained (VIKASH CERVANTES STUDENT) Progress Note : Progress Note I have seen and evaluated the patient and agree with above except as indicated. I have directed the plan of care. Patient is hypotensive and the range of 70s over 30s and 40s persistently despite fluid. Central line placement indicated and placed as above. Post chest x-ray shows line in good position without pneumonia or pneumothorax. Florence catheter placed to monitor urine output. Blood cultures, lactic acid and labs ordered. EKG ordered. Monitor patient. Patient did get orders for 3.5 L of normal saline which exceeds 30 mL/ kg dosing. 1410: Blood pressure remains less than 90 systolic despite high volume fluid resuscitation. We will initiate Levophed drip at 5 mcg/m to achieve blood pressure greater than 90 systolic and greater than 65 map. Hydrocortisone 100 mg IV ordered as patient has previously been on prednisone but has not been on it for 3 weeks. Still concerns about adrenal crisis as we' re not finding infective concerns yet to this point in the evaluation. UA still pending and we will get CT scan of the abdomen and pelvis without contrast to look for intra-abdominal pathology. Monitor patient. 1619: We are able to obtain a ICU bed here. I discussed the case with Dr. Jain. Patient was noted to have urinary tract infection and small bowel obstruction. Did receive Zosyn 4.5 g IV earlier. 1625: I did discuss the case with Dr. Constantino and he accepts patient and consult with Dr. Jain excepting patient primary, inpatient status. 1638: I discussed with the patient and family who agree with plan. I attest a focused exam at this time. Blood pressures remained greater than 90 systolic and 65 map currently and patient states he feels a little better overall. On Levophed at 5 mcg/m still. (GI MENDEZ MD) ECG Initial ECG Impression Date: Nov 16, 2018 Initial ECG Impression Time: 12:49 Initial ECG Rate: 80 Initial ECG Rhythm: PAC Comment Sinus rhythm. Normal axis. Multiple premature atrial complexes. No evidence of STEMI. Similar to previous EKG on 11/14/18. Interpreted by Dr. Mendez. (VIKASH CERVANTES STUDENT) Diagnostic Imaging Diagonstic Imaging: Xray Plain Films/CT/US/NM/MRI: chest Comments [facility], [facility]. [place], [place] NAME: DONOVAN SANCHEZ [facility] REC#: [id number] PT STATUS: REG ER : 1955 PHYSICIAN: JYOTI KYLE APRN ADMIT DATE: 11/16/18/ER Draft Date of Exam:11/16/18 CHEST 1 VIEW, AP/PA ONLY PATIENT HISTORY: Central line placement. TECHNIQUE: Frontal view of the chest COMPARISON: 11/14/2018 FINDINGS: Lung volumes are low. No focal consolidation is seen. There is no pleural effusion or pneumothorax. The cardiac silhouette is upper normal in size. The right-sided jugular line projects over the low SVC. IMPRESSION: 1. The right jugular line tip projects over the low SVC. 2. Low lung volumes with no acute pulmonary abnormality seen. Dictated on workstation # [id number] Dict: 11/16/18 1301 Trans: 11/16/18 1304 [facility] [id number] Interpreted by: DAINA ROOT MD Electronically signed by: Time of Consult: 13:01 (VIKASH CERVANTES STUDENT) Diagonstic Imaging: CT Plain Films/CT/US/NM/MRI: abdomen, pelvis Comments NAME: DONOVAN SANCHEZ [facility] REC#: [id number] PT STATUS: REG ER : 1955 PHYSICIAN: GI MENDEZ MD ADMIT DATE: 11/16/18/ER Draft Date of Exam:11/16/18 CT ABDOMEN/PELVIS WO PROCEDURE: CT abdomen and pelvis without contrast. TECHNIQUE: Multiple contiguous axial images were obtained through the abdomen and pelvis without the use of intravenous contrast. INDICATION: Abdominal pain. Patient has history of Crohn's disease with a prior abdominal surgery. COMPARISON: Correlation is made with prior CT from 12/28/2012. FINDINGS: The lung bases are clear. No discrete liver mass is seen. Gallbladder is surgically absent. No biliary ductal dilatation is seen. The pancreas and spleen are unremarkable. No adrenal mass is detected. Bilateral nonobstructing renal calculi are seen. No ureteral calculi or hydronephrosis is seen. Cortical low-density lesions involving the kidneys are noted. The largest is in the lower pole of the left kidney measuring 4.1 cm compared with 2.1 cm on prior. Density measurements are consistent with fluid and likely owing to a cyst. Aorta is calcified but nonaneurysmal. Postsurgical changes in the right lower quadrant are noted. There are some mild to moderately dilated and fluid-filled small bowel loops in the central and left abdomen. There appears to be a transition zone in the mid to distal small bowel with normal caliber small bowel loops in the right lower quadrant. Small bowel obstruction cannot be entirely excluded. No wall thickening, pneumatosis, or free air is seen. There is no free fluid or fluid collection identified. No significant inflammatory changes are seen. The bladder is decompressed by a Florence catheter. IMPRESSION: 1. Bilateral nonobstructing nephrolithiasis. 2. Enlarging left lower pole renal cyst. 3. Moderate fluid-filled distention of small bowel loops in the central and left abdomen with transition in the mid to distal small bowel, suspicious for small bowel obstruction. No fluid collection or free air is detected. Dictated on workstation # [id number] Dict: 11/16/18 1511 Trans: 11/16/18 1520 [id number] Interpreted by: FANTASMA RADER MD Electronically signed by: (GI MENDEZ MD) Departure Communication (Admissions) Time/Spoke to Admitting Phy: 16:19 Time/Spoke to Consulting Phy: 16:25 (GI MENDEZ MD) Impression Primary Impression: Urinary tract infection Qualified Codes: N30.00 - Acute cystitis without hematuria Additional Impressions: Small bowel obstruction Severe sepsis Disposition: 09 ADMITTED INPATIENT Condition: Stable Admissions Decision to Admit Reason: Admit from ER (General) Decision to Admit/Date: Nov 16, 2018 Time/Decision to Admit Time: 16:19 (GI MENDEZ MD) Departure-Patient Inst. Referrals: MK CRONIN MD (PCP/Family) Primary Care Physician VIKASH CERVANTES Nov 16, 2018 13:13 GI MENDEZ MD Nov 16, 2018 14:20
[2018-11-16 13:18] LABS: INR 1.1 (0.8-1.4); PROTHROMBIN TIME PATIENT 14.2 SEC (12.2-14.7)
[2018-11-16 13:20] LABS: ALANINE AMINOTRANSFERASE 32 U/L (0-55); ALBUMIN 3.7 GM/DL (3.2-4.5); ALKALINE PHOSPHATASE 38 U/L (40-136); BILIRUBIN,TOTAL 1.1 MG/DL (0.1-1.0); BUN/CREATININE RATIO 8; CALCIUM 8.5 MG/DL (8.5-10.1); CARBON DIOXIDE 17 MMOL/L (21-32); CHLORIDE 100 MMOL/L (98-107); CREATININE SERUM 3.12 MG/DL (0.60-1.30); GFR ESTIMATED 20; GLUCOSE 116 MG/DL (70-105); POTASSIUM 3.5 MMOL/L (3.6-5.0); SODIUM 130 MMOL/L (135-145); TOTAL PROTEIN 6.9 GM/DL (6.4-8.2)
[2018-11-16 13:42] LABS: BILIRUBIN,URINE 1+ (NEGATIVE); CLARITY,URINE SLIGHTLY CLOUDY; COLOR,URINE YELLOW; GLUCOSE, URINE (UA) 1+ (NEGATIVE); KETONES,URINE 1+ (NEGATIVE); LEUKOCYTE ESTERASE ,URINE 1+ (NEGATIVE); PH,URINE 5 (5-9); PROTEIN,URINE 3+ (NEGATIVE); UROBILINOGEN,URINE 1 MG/DL (NORMAL)
[2018-11-16 13:48] LABS: BAND NEUTROPHILS 21 %; BASOPHILS % (MANUAL) 0 %; EOSINOPHILS % (MANUAL) 0 %; LYMPHOCYTES % (MANUAL) 2 %; MONOCYTES % (MANUAL) 4 %; NEUTROPHILS % (MANUAL) 72 %; REACTIVE LYMPHOCYTES 1 %
[2018-11-16 13:49] LABS: RBC MORPH NORMAL; TOXIC GRANULATION/VACUOLAZATIO 3+
[2018-11-16] MEDS ORDERED: NS (IVPB) 250 ML ONE (13:53)
[2018-11-16] MEDS ORDERED: NOREPINEPHRINE 4 MG/4 ML (LEVOPHED) AMP IV ONE (13:53)
[2018-11-16] MEDS ORDERED: NOREPINEPHRINE 4 MG in NS (IVPB) 250 ML IV SCH (14:00)
[2018-11-16] MEDS ORDERED: NS IV 1000 ML 1,000 ML IV ONE (14:05)
[2018-11-16 14:08] LABS: AMORPHOUS SEDIMENT,UR MOD AMOR URATES /LPF; BACTERIA,URINE MODERATE /HPF; NITRITE,URINE POSITIVE (NEGATIVE); RBC,URINE RARE /HPF; SQUAMOUS EPITHELIAL CELL,UR RARE /HPF; WBC,URINE 0-2 /HPF
[2018-11-16] MEDS ORDERED: HYDROCORTISONE 100 MG/2 ML (Solu-CORTEF) VIAL IV ONE (14:15)
[2018-11-16] MEDS ORDERED: PIPERACILLIN SODIUM/TAZOBACTAM 4.5 GM in NS (IVPB) 100 ML IV ONE (14:30)
--- NOTE | 2018-11-16 15:20 | Diagnostic Imaging Report ---
PROCEDURE: CT abdomen and pelvis without contrast. TECHNIQUE: Multiple contiguous axial images were obtained through the abdomen and pelvis without the use of intravenous contrast. INDICATION: Abdominal pain. Patient has history of Crohn's disease with a prior abdominal surgery. COMPARISON: Correlation is made with prior CT from 12/28/2012. FINDINGS: The lung bases are clear. No discrete liver mass is seen. Gallbladder is surgically absent. No biliary ductal dilatation is seen. The pancreas and spleen are unremarkable. No adrenal mass is detected. Bilateral nonobstructing renal calculi are seen. No ureteral calculi or hydronephrosis is seen. Cortical low-density lesions involving the kidneys are noted. The largest is in the lower pole of the left kidney measuring 4.1 cm compared with 2.1 cm on prior. Density measurements are consistent with fluid and likely owing to a cyst. Aorta is calcified but nonaneurysmal. Postsurgical changes in the right lower quadrant are noted. There are some mild to moderately dilated and fluid-filled small bowel loops in the central and left abdomen. There appears to be a transition zone in the mid to distal small bowel with normal caliber small bowel loops in the right lower quadrant. Small bowel obstruction cannot be entirely excluded. No wall thickening, pneumatosis, or free air is seen. There is no free fluid or fluid collection identified. No significant inflammatory changes are seen. The bladder is decompressed by a Florence catheter. IMPRESSION: 1. Bilateral nonobstructing nephrolithiasis. 2. Enlarging left lower pole renal cyst. 3. Moderate fluid-filled distention of small bowel loops in the central and left abdomen with transition in the mid to distal small bowel, suspicious for small bowel obstruction. No fluid collection or free air is detected. Dictated by: Dictated on workstation # [id number]
--- NOTE | 2018-11-16 17:04 | History & Physical-Hospitalist ---
History of Present Illness HPI/Chief Complaint Pt is a 63yoCM with a PMH of bowel perf s/p resection, Crohn disease on chronic ummune supression, HTN who presented to the ER from his PCPs office for hypotension. He states that he was started on Inflexa for the first time on 11/13 and did not tolerate it well. He left his infusion with a headache and then developed severe nausea, vomiting, and diarrhea. He was seen in the ER on 11/14 and given IVF and DC-ed home. He followed up with his PCP today and was found to have a BP of 60/30 and sent to the ER for evaluation. He complains of watery diarrhea and cramping abdominal pain still. He had scant urine output on presentation as well. Source: patient Date Seen 11/16/18 Time Seen by a Provider: 16:30 Attending Physician Pranay Jain MD PCP Orville Willard MD Referring Physician Date of Admission Nov 16, 2018 at 16:30 Home Medications & Allergies Home Medications Reviewed patient Home Medication Reconciliation performed by pharmacy medication reconciliations edger technician and/or nursing. Patients Allergies have been reviewed. Allergies Allergies Coded Allergies morphine (Unverified Allergy, Severe, HEART STOPPED, 11/17/18) hydromorphone HCl (Unverified Allergy, Unknown, HIVES, 11/14/18) oxycodone (Unverified Allergy, Unknown, HIVES, 11/14/18) meperidine HCl (Unverified Adverse Reaction, Mild, N/V, 11/17/18) Past Ymxvkmd-Pbdcbw-Mwlhgz Hx Past Med/Social Hx: Reviewed Nursing Past Med/Soc Hx Patient Social History Alcohol Use: Denies Use Recreational Drug Use: No Smoking Status: Never a Smoker Recent Foreign Travel: No Contact w/other who traveled: No Recent Hopitalizations: No Recent Infectious Disease Expo: No Immunizations Up To Date Pediatric: Yes Date of Pneumonia Vaccine: Aug 03, 2010 Date of Influenza Vaccine: Jul 03, 2012 Seasonal Allergies Seasonal Allergies: Yes Past Medical History Surgeries: Abdominal (bowel resection), Tonsillectomy, Transurethral Resection , Vasectomy Cardiac: Hypertension Reproductive: No Sexually Transmitted Disease: No Genitourinary: Kidney Stones Gastrointestinal: Crohns Disease Endocrine: Adrenal Disease Cancer: Skin (basal cell CA, successfully removed) Did You Recieve Any Treatments: Yes What Type of Treatment Did You: Surgical Intervention History of Blood Disorders: No Family History Reviewed Nursing Family Hx No Pertinent Family Hx Review of Systems Constitutional: weakness Respiratory: cough; No short of breath Cardiovascular: No chest pain, No palpitations Gastrointestinal: see HPI, abdominal pain, diarrhea, nausea Genitourinary: decreased output Musculoskeletal: muscle cramps Psychiatric/Neurological: Headache, Weakness Physical Exam Physical Exam Vital Signs Vital Signs - First Documented 11/16/18 11/16/18 11/16/18 11:55 20:25 21:12 Temp 99.1 Pulse 90 Resp 25 B/P (MAP) 82/44 (57) Pulse Ox 97 O2 Delivery Room Air O2 Flow Rate 2.00 FiO2 21 Capillary Refill : Less Than 3 Seconds Height, Weight, BMI Height: 6'0" Weight: 250lbs. 0.0oz. 113.549282zs; BMI Method:Stated General Appearance: No Apparent Distress, WD/WN, Obese HEENT: PERRL/EOMI, Other (dry mucous membranes) Neck: Normal Inspection, Supple Respiratory: Lungs Clear, No Accessory Muscle Use, No Respiratory Distress Cardiovascular: Regular Rate, Rhythm, No JVD, No Murmur Gastrointestinal: Non Tender, Soft, Abnormal Bowel Sounds (quiet) Extremity: Normal Capillary Refill, No Calf Tenderness, No Pedal Edema Neurologic/Psychiatric: Alert, Oriented x3, No Motor/Sensory Deficits, Normal Mood/Affect Skin: Normal Color, Warm/Dry; No Mottled, No Petechia Comments focused exam done Results Results/Procedures Labs Laboratory Tests 11/16/18 12:55 11/17/18 03:40 Patient resulted labs reviewed. Imaging: Reviewed Imaging Report Assessment/Plan Admission Diagnosis Septic Shock Admission Status: Inpatient Order (span 2 midnights) Reason for Inpatient Admission: ICU, vasopressors, await cultures Diagnosis/Problems Diagnosis/Problems (1) Septic shock Assessment & Plan: Hypotensive despite fluid resuscitation Currently on Levophed UTI as source, await cultures Vanc/Zosyn (2) CT (acute kidney injury) Assessment & Plan: Creatinine 3.12 up from 1.13 2 days ago Continue IVF Check a CK given 4+ RBCs on UA and none seen on microscopy (3) Small bowel obstruction Status: Acute Assessment & Plan: Dr Bravo consulted appreciate recs NPO (4) UTI (urinary tract infection) Status: Acute Assessment & Plan: Continue Vanc and Zosyn Qualifiers: Urinary tract infection type: acute cystitis Hematuria presence: without hematuria Qualified Codes: N30.00 - Acute cystitis without hematuria (5) Essential (primary) hypertension Assessment & Plan: Hold home meds (6) Crohn disease Status: Chronic Assessment & Plan: Received Inflexa on 11/13 Qualifiers: Gastrointestinal tract location: unspecified location Digestive disease complication type: unspecified complication Qualified Codes: K50.919 - Crohn' s disease, unspecified, with unspecified complications (7) Immunosuppressed status Assessment & Plan: On chronic immune suppression Cover with broad spectrum abx Continue PRANAY Gibson MD Nov 16, 2018 17:04
--- NOTE | 2018-11-16 17:54 | NUR ---
650ML URINE OUTPUT. 2 WATERY BM IN ER.
[2018-11-16] MEDS: NOREPINEPHRINE 4 MG in NS (IVPB) 250 ML IV SCH (18:24)
--- NOTE | 2018-11-16 18:28 | Consultation ---
History of Present Illness History of Present Illness Patient Consulted On(augusto/time) 11/16/18 18:22 Time Seen by Provider: 17:53 History of Present Illness Surgery asked to consult regarding possible SBO. HPI per ED: Pt is a 63yoCM with a PMH of bowel perf s/p resection, Crohn disease on chronic ummune supression, HTN who presented to the ER from his PCPs office for hypotension. He states that he was started on Inflexa for the first time on 11/13/18 and did not tolerate it well. He left his infusion with a headache and then developed severe nausea, vomiting, and diarrhea. He was seen in the ER on 11/14 and given IVF and DC-ed home. He followed up with his PCP today and was found to have a BP of 60/30 and sent to the ER for evaluation. He complains of watery diarrhea and cramping abdominal pain still. He had scant urine output on presentation as well. When I spoke to pt he states he has had abdominal pain for appx a month; that he related to his GI doctor and he was started on a dose of steroids. Pain did not really improve and about a week and a half ago the diarrhea "got really bad". He states today he has had 3 episodes of "water just pouring out of me". He usually takes Remicaid and on Tuesday he was given Inflexa; "which seemed to make everything worse". He also complains of bloating and states he has not had pain since he was first diagnosed with Crohn's 13 yrs ago (perforated at that time). The pain this time is not as bad as it was then. Nothing has helped his abdominal pain this time. He states he can not keep anything down, "I immediately throw everything up". In the ER he was hypotensive, a central line was performed by the ER physician and he was started on Levophed. He looks stable at this time. Allergies and Home Medications Allergies Coded Allergies: hydromorphone HCl (Unverified Allergy, Unknown, HIVES, 11/14/18) meperidine HCl (Unverified Allergy, Unknown, N/V, 11/14/18) oxycodone (Unverified Allergy, Unknown, HIVES, 11/14/18) morphine (Unverified Adverse Reaction, Severe, HEART STOPPED, 01/06/12) Home Medications Azathioprine 50 Mg Tablet, 150 MG PO BID, (Reported) Cyanocobalamin 1,000 Mcg/Ml Vial, 1,000 MCG IJ TWICE A MONTH, (Reported) LAST DOSE 12-26-12 Diphenoxylate Hcl/Atrop Sulf 1 Each Tablet, 2 TAB PO UP TO 4 TIMES DAILY PRN, ( Reported) PRN DIARRHEA Ergocalciferol 50,000 Unit Capsule, 50,000 UNIT PO WEEKLY ON FRIDAYS, (Reported) Folic Acid 0.4 Mg Tablet, 0.4 MG PO DAILY, (Reported) Hctz/Lisinopril 1 Tab Tablet, 20-25 MG PO DAILY, (Reported) Lactobacillus Rhamnosus Gg 1 Each Capsule, 1 EACH PO DAILY, (Reported) Montelukast Sodium 10 Mg Tablet, 10 MG PO HS, (Reported) Nadolol 40 Mg Tab, 40 MG PO TID, (Reported) [place]-3 Fatty Acids/Fish Oil 1 Each Capsule, 1,000 MG PO DAILY, (Reported) Ondansetron HCl 4 Mg Tab, 4 MG PO Q4H PRN for NAUSEA/VOMITING-1ST LINE Prescribed by: LUIZA JUÁREZ on 11/15/18 0010 Pantoprazole Sod 40 Mg Tab, 40 MG PO DAILY, (Reported) Paroxetine Hcl 20 Mg Tablet, 20 MG PO DAILY, (Reported) Potassium Citrate 10 Meq Tablet.sa, 20 MEQ PO BID, (Reported) Prednisone 10 Mg Tab, 10 MG PO UD PRN, (Reported) TAKES 5 WEEK TAPER DOSE OF 50MG FOR 1 WEEK, 40MG FOR 1 WEEK, 30MG FOR 1 WEEK , 20MG FOR 1 WEEK, 10MG FOR 1 WEEK PRN CHRON'S FLARE UP Simvastatin 10 Mg Tablet, 10 MG PO HS, (Reported) Tadalafil 2.5 Mg Tablet, 5 MG PO DAILY PRN, (Reported) PRN ED TAKES 1 TAB OF 5MG PRN Tramadol Hcl 50 Mg Tablet, 100 MG PO TID PRN, (Reported) PRN PAIN Patient Home Medication List Home Medication List Reviewed: Yes Past Hpydabo-Groyup-Dnfgkv Hx Patient Social History Alcohol Use: Denies Use Recreational Drug Use: No Smoking Status: Never a Smoker Recent Foreign Travel: No Contact w/Someone Who Travel: No Recent Infectious Disease Expo: No Recent Hopitalizations: No Immunizations Up To Date PED Vaccines UTD: Yes Date of Pneumonia Vaccine: Aug 03, 2010 Date of Influenza Vaccine: Jul 03, 2012 Seasonal Allergies Seasonal Allergies: Yes Surgeries History of Surgeries: Yes (PT ADMITTED FROM TESTICULAR SURGERY, HERNIA REPAIR, SMALL BOWEL RESECTION) Surgeries: Abdominal (bowel resection), Tonsillectomy, Transurethral Resection , Vasectomy Respiratory History of Respiratory Disorde: No Cardiovascular History of Cardiac Disorders: Yes Cardiac Disorders: Hypertension Neurological History of Neurological Disord: No Reproductive System Hx Reproductive Disorders: No Sexually Transmitted Disease: No Genitourinary History of Genitourinary Disor: Yes Genitourinary Disorders: Kidney Stones Gastrointestinal History of Gastrointestinal Di: Yes Gastrointestinal Disorders: Crohns Disease Musculoskeletal History of Musculoskeletal Dis: No 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) Endocrine Disorders: Adrenal Disease HEENT History of HEENT Disorders: No Cancer 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) Cancer: Skin (basal cell CA, successfully removed) Psychosocial History of Psychiatric Problem: No Integumentary History of Skin or Integumenta: No Blood Transfusions History of Blood Disorders: No Family Medical History Significant Family History: Heart Disease (Pt denies), Diabetes (Mother), Other Conditions/Hx (Pt states no other family members have Crohn's) Review of Systems-General Constitutional: chills, diaphoresis, malaise, weakness EENTM: No blurred vision, No mouth pain, No mouth swelling, No epistaxis Respiratory: No cough, No dyspnea on exertion, No hemoptysis, No short of breath Cardiovascular: No chest pain, No edema, No palpitations Gastrointestinal: abdominal pain, diarrhea; No hematemesis, No melena; nausea, vomiting, other (Pt denies hematochezia) Genitourinary: dysuria, frequency; No hematuria; hesitancy Musculoskeletal: joint pain, joint swelling, muscle pain Skin: No change in hair/nails; lesions; No pruritus Psychiatric/Neurological: Denies Anxiety, Denies Depressed, Denies Headache, Denies Seizure Other pt denies any abnormal bruising or bleeding Physical Exam-General Problems Physical Exam Vital Signs Vital Signs - First Documented 11/16/18 11:55 Temp 99.1 Pulse 90 Resp 25 B/P (MAP) 82/44 (57) Pulse Ox 97 O2 Delivery Room Air Capillary Refill : Less Than 3 Seconds General Appearance: WD/WN, mild distress, obese Eyes: Bilateral Eye PERRL, Bilateral Eye EOMI HEENT: pharynx normal; No scleral icterus (R), No scleral icterus (L) Neck: non-tender, full range of motion, normal inspection Respiratory: chest non-tender, lungs clear, normal breath sounds, no respiratory distress, no accessory muscle use Cardiovascular: regular rate, rhythm, no edema, no murmur Gastrointestinal: soft, no organomegaly, no pulsatile mass; No guarding, No rebound; tenderness (diffusely), hernia (multiple small ventral/incisional hernias.....in midline) Rectal: deferred Back: no CVA tenderness, no vertebral tenderness Extremities: no pedal edema, no calf tenderness, normal capillary refill Neurologic/Psychiatric: cattle driver II-XII 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 as tested, no motor/sensory deficits, alert, normal mood/affect, oriented x 3 Skin: warm/dry, other (pt has scabs all over his arms) Lymphatic: no adenopathy (neck, axilla or groin) Data Review Labs Laboratory Tests 11/16/18 12:55: White Blood Count 26.0H, Red Blood Count 4.50, Hemoglobin 14.3, Hematocrit 43, Mean Corpuscular Volume 96, Mean Corpuscular Hemoglobin 32, Mean Corpuscular Hemoglobin Concent 33, Red Cell Distribution Width 13.6, Platelet Count 130, Mean Platelet Volume 11.1H, Neutrophils (%) (Auto) 92H, Lymphocytes (%) (Auto) 2L, Monocytes (%) (Auto) 6, Eosinophils (%) (Auto) 0, Basophils (%) (Auto) 0, Neutrophils # (Auto) 23.9H, Lymphocytes # (Auto) 0.6L, Monocytes # (Auto) 1.4H, Eosinophils # (Auto) 0.1, Basophils # (Auto) 0.1, Neutrophils % (Manual) 72, Lymphocytes % (Manual) 2, Monocytes % (Manual) 4, Eosinophils % (Manual) 0, Basophils % (Manual) 0, Band Neutrophils 21, Reactive Lymphocytes 1, Toxic Granulation 3+, Blood Morphology Comment NORMAL, Prothrombin Time 14.2, INR Comment 1.1, Activated Partial Thromboplast Time 32, Sodium Level 130L, Potassium Level 3.5L, Chloride Level 100, Carbon Dioxide Level 17L, Anion Gap 13 , Blood Urea Nitrogen 24H, Creatinine 3.12#H, Estimat Glomerular Filtration Rate 20, BUN/Creatinine Ratio 8, Glucose Level 116H, Lactic Acid Level 1.92, Calcium Level 8.5, Corrected Calcium 8.7, Total Bilirubin 1.1H, Aspartate Amino Transf (AST/SGOT) 43H, Alanine Aminotransferase (ALT/SGPT) 32, Alkaline Phosphatase 38L, Total Creatine Kinase 201H, Troponin I < 0.028, Total Protein 6.9, Albumin 3.7 11/16/18 13:20: Urine Color YELLOW, Urine Clarity SLIGHTLY CLOUDY, Urine pH 5, Urine Specific [place] 1.030H, Urine Protein 3+H, Urine Glucose (UA) 1+H, Urine Ketones 1+H, Urine Nitrite POSITIVEH, Urine Bilirubin 1+H, Urine Urobilinogen 1, Urine Leukocyte Esterase 1+H, Urine RBC (Auto) 4+H, Urine RBC RARE, Urine WBC 0-2, Urine Squamous Epithelial Cells RARE, Urine Renal Epithelial Cells NONE, Urine Crystals PRESENTH, Urine Amorphous Sediment MOD ZUHAIR URATESH, Urine Bacteria MODERATEH, Urine Casts PRESENT, Urine Hyaline Casts 10-25H, Urine Mucus NEGATIVE , Urine Culture Indicated NO Assessment/Plan Assessment/Plan Assessment/Plan Abdominal Pain Intractable Nausea and Vomiting Crohn's Hyponatremia Hypokalemia UTI CT of abd/pelvis read as possible SBO; I don't see a transition point and he does not have any free air or free fluid. He is having diarrhea. He needs IV fluids, pain control, anti-emetics. May need a repeat steroid dose. May need a SBFT if he does not improve; doesn't need NGT at this time. Will need electrolyte replacement and was started on Zosyn and Vancomycin for his UTI ; both should treat any intestinal problem. Pt is NPO, but can have wet swabs for his mouth. I am unsure if this is a Crohns flare up , viral gastroenteritis or PSBO. Will follow along and monitor his abdominal pain, vitals, and labs. ZAK HULL DO Nov 16, 2018 18:28
[2018-11-16] MEDS ORDERED: NS IV 1000 ML 3,401.94 ML IV ONE (18:30)
[2018-11-16] MEDS ORDERED: VANCOMYCIN 1,750 MG/NS 500 ML IVPB IV NR ×2 (18:30)
[2018-11-16] MEDS ORDERED: ONDANSETRON 4 MG/2 ML (SDV) Z0FRAN IV PRN (18:30)
--- NOTE | 2018-11-16 18:32 | NUR ---
CR 3.12; CR CL ~30; WT 113 KG; VANCO 1750 MG IV BOLUS THEN 1250 MG IV DAILY X 2 MORE DOSES
[2018-11-16] MEDS ORDERED: RT-ALBUTEROL/IPRATROPIUM 3 ML (DUONEB) VIAL INH PRN (21:00)
[2018-11-16] MEDS: PIPERACILLIN/TAZO 4.5 GM/NS 100 ML IV SCH ×2 (21:01)
[2018-11-17] VITALS (24 sets, daily range): BP systolic 86–141; BP diastolic 45–97
[2018-11-17] MEDS ORDERED: AMIODARONE (OMNICELL DRIP KIT) 150 MG/3 ML IV ONE (01:38)
[2018-11-17] MEDS ORDERED: D5W 100 ML IVPB 100 ML IV ONE (01:38)
[2018-11-17] MEDS ORDERED: D5W IV SOLUTION (EXCEL) 250 ML IV ONE (01:55)
[2018-11-17] MEDS ORDERED: AMIODARONE 450 MG/9 ML (CORDARONE) VIAL IV ONE (01:56)
[2018-11-17] MEDS: AMIODARONE INJECTION 450 MG in D5W IV SOLUTION (EXCEL) 250 ML IV SCH ×2 (01:56→10:14)
[2018-11-17] MEDS: NS IV 1000 ML 1,000 ML IV SCH ×6 (02:33→23:18)
[2018-11-17] MEDS ORDERED: MIDAZOLAM 5 MG/5 ML (VERSED) VIAL ONE (02:44)
[2018-11-17] MEDS ORDERED: fentaNYL INJECTION 100 MCG/2 ML AMP ONE (02:44)
[2018-11-17] MEDS ORDERED: AMIODARONE FOR BOLUS 150 MG in D5W 100 ML IVPB 100 ML IV ONE (02:45)
[2018-11-17] MEDS ORDERED: NOREPINEPHRINE 4 MG/4 ML (LEVOPHED) AMP IV ONE (02:53)
[2018-11-17] MEDS ORDERED: NS (IVPB) 250 ML ONE (02:53)
[2018-11-17] MEDS ORDERED: MIDAZOLAM 5 MG/5 ML (VERSED) VIAL IVP ONE (02:55)
[2018-11-17] MEDS ORDERED: fentaNYL INJECTION 100 MCG/2 ML AMP IVP ONE (02:55)
[2018-11-17] MEDS: NOREPINEPHRINE 4 MG in NS (IVPB) 250 ML IV SCH ×2 (03:00→20:29)
[2018-11-17] MEDS ORDERED: NS (IVPB) 100 ML ONE (03:03)
[2018-11-17] MEDS ORDERED: DILTIAZEM 125 MG/25 ML IV (CARDIZEM) IV ONE (03:03)
[2018-11-17] MEDS: DILTIAZEM INJECTION 125 MG in NS (IVPB) 100 ML IV SCH (03:15)
[2018-11-17 03:54] LABS: BASOPHILS % (AUTO) 0 % (0-10); EOSINOPHILS % (AUTO) 0 % (0-10); HEMATOCRIT 37 % (40-54); HEMOGLOBIN 12.2 G/DL (13.3-17.7); LYMPHOCYTES # (AUTO) 0.6 X 10^3 (1.0-4.0); LYMPHOCYTES % (AUTO) 4 % (12-44); MEAN CORPUSCULAR HEMOGLOBIN 33 PG (25-34); MEAN CORPUSCULAR HGB CONC 33 G/DL (32-36); MEAN CORPUSCULAR VOLUME 98 FL (80-99); MEAN PLATELET VOLUME 11.1 FL (7.4-10.4); MONOCYTES # (AUTO) 0.6 X 10^3 (0.0-1.0); MONOCYTES % (AUTO) 3 % (0-12); NEUTROPHILS % (AUTO) 93 % (42-75); PLATELET COUNT 90 10^3/uL (130-400); RED CELL DISTRIBUTION WIDTH 13.7 % (10.0-14.5); WHITE BLOOD COUNT 16.2 10^3/uL (4.3-11.0)
[2018-11-17 04:14] LABS: ALBUMIN 2.9 GM/DL (3.2-4.5); BILIRUBIN,TOTAL 0.7 MG/DL (0.1-1.0); CALCIUM 7.4 MG/DL (8.5-10.1); CREATININE SERUM 1.43 MG/DL (0.60-1.30); MAGNESIUM 1.4 MG/DL (1.8-2.4); PHOSPHORUS 2.5 MG/DL (2.3-4.7); POTASSIUM 2.9 MMOL/L (3.6-5.0)
--- NOTE | 2018-11-17 04:40 | Pulmonary Consultation ---
History of Present Illness History of Present Illness Date of Consultation 11/16/18 1800 Late Entry Time Seen by Provider: 04:35 Date of Admission History of Present Illness 63yo with hx of bowel perf s/p resection, crohns dx, presented to ED from PCP's office secondary to hypotension. Allergies and Home Medications Allergies Coded Allergies: hydromorphone HCl (Unverified Allergy, Unknown, HIVES, 11/14/18) meperidine HCl (Unverified Allergy, Unknown, N/V, 11/14/18) oxycodone (Unverified Allergy, Unknown, HIVES, 11/14/18) morphine (Unverified Adverse Reaction, Severe, HEART STOPPED, 01/06/12) Home Medications Azathioprine 50 Mg Tablet, 150 MG PO BID, (Reported) Cyanocobalamin 1,000 Mcg/Ml Vial, 1,000 MCG IJ TWICE A MONTH, (Reported) LAST DOSE 12-26-12 Diphenoxylate Hcl/Atrop Sulf 1 Each Tablet, 2 TAB PO UP TO 4 TIMES DAILY PRN, ( Reported) PRN DIARRHEA Ergocalciferol 50,000 Unit Capsule, 50,000 UNIT PO WEEKLY ON FRIDAYS, (Reported) Folic Acid 0.4 Mg Tablet, 0.4 MG PO DAILY, (Reported) Hctz/Lisinopril 1 Tab Tablet, 20-25 MG PO DAILY, (Reported) Lactobacillus Rhamnosus Gg 1 Each Capsule, 1 EACH PO DAILY, (Reported) Montelukast Sodium 10 Mg Tablet, 10 MG PO HS, (Reported) Nadolol 40 Mg Tab, 40 MG PO TID, (Reported) [place]-3 Fatty Acids/Fish Oil 1 Each Capsule, 1,000 MG PO DAILY, (Reported) Ondansetron HCl 4 Mg Tab, 4 MG PO Q4H PRN for NAUSEA/VOMITING-1ST LINE Prescribed by: LUIZA JUÁREZ on 11/15/18 0010 Pantoprazole Sod 40 Mg Tab, 40 MG PO DAILY, (Reported) Paroxetine Hcl 20 Mg Tablet, 20 MG PO DAILY, (Reported) Potassium Citrate 10 Meq Tablet.sa, 20 MEQ PO BID, (Reported) Prednisone 10 Mg Tab, 10 MG PO UD PRN, (Reported) TAKES 5 WEEK TAPER DOSE OF 50MG FOR 1 WEEK, 40MG FOR 1 WEEK, 30MG FOR 1 WEEK , 20MG FOR 1 WEEK, 10MG FOR 1 WEEK PRN CHRON'S FLARE UP Simvastatin 10 Mg Tablet, 10 MG PO HS, (Reported) Tadalafil 2.5 Mg Tablet, 5 MG PO DAILY PRN, (Reported) PRN ED TAKES 1 TAB OF 5MG PRN Tramadol Hcl 50 Mg Tablet, 100 MG PO TID PRN, (Reported) PRN PAIN Past Olfbslx-Nbbyny-Scpdoe Hx Past Med/Social Hx: Reviewed Nursing Past Med/Soc Hx Patient Social History Alcohol Use: Denies Use Recreational Drug Use: No Smoking Status: Never a Smoker Recent Foreign Travel: No Contact w/Someone Who Travel: No Recent Infectious Disease Expo: No Recent Hopitalizations: No Immunizations Up To Date PED Vaccines UTD: Yes Date of Pneumonia Vaccine: Aug 03, 2010 Date of Influenza Vaccine: Aug 11, 2018 Seasonal Allergies Seasonal Allergies: Yes Past Medical History Surgeries: Yes (PT ADMITTED FROM TESTICULAR SURGERY, HERNIA REPAIR, SMALL BOWEL RESECTION) Abdominal (bowel resection), Tonsillectomy, Transurethral Resection, Vasectomy Respiratory: No Cardiac: Yes Hypertension Neurological: No Reproductive Disorders: No Sexually Transmitted Disease: No Genitourinary: Yes Kidney Stones Gastrointestinal: Yes Crohns Disease Musculoskeletal: No Endocrine: Yes (CUSHINGS DISEASE) Adrenal Disease HEENT: No 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 Heart Disease (Pt denies), Diabetes (Mother), Other Conditions/Hx (Pt states no other family members have Crohn's) Review of Systems Time Seen by Provider: 18:00 Constitutional: Fever, Weakness, Malaise Eyes: No: Pain, Vision change, Conjunctivae inflammation, Eyelid inflammation, Other, Redness ENT: Nose congestion Respiratory: Cough, Shortness of breath, SOB with excertion; No: Hemoptysis Cardiovascular: Paroxysmal Noc. Dyspnea Gastrointestinal: Nausea, Vomiting, Abdominal Pain, Constipation; No: Hematochezia Neurological: Weakness Sepsis Event Evaluation Height, Weight, BMI Height: 6'0.00" Weight: 249lbs. 0.0oz. 112.731345sw; 33.8 BMI Method:Stated Exam Exam Vital Signs Date Time Temp Pulse Resp B/P (MAP) Pulse Ox O2 Delivery O2 Flow Rate FiO2 11/17/18 04:00 98 Room Air 11/17/18 04:00 98.5 11/17/18 04:00 88 21 95/62 (73) 100 Nasal Cannula 2.00 11/17/18 03:00 172 13 86/77 (80) 98 Nasal Cannula 2.00 11/17/18 02:00 158 20 101/62 (75) 99 Nasal Cannula 2.00 11/17/18 01:07 94 11/17/18 01:00 93 14 108/64 (79) 98 Nasal Cannula 2.00 11/17/18 00:00 93 21 121/74 (90) 99 Nasal Cannula 2.00 11/17/18 00:00 96 Room Air 11/17/18 00:00 98.0 11/16/18 23:00 98 19 108/57 (74) 99 Nasal Cannula 2.00 11/16/18 22:33 95 21 103/68 (80) 98 Nasal Cannula 2.00 11/16/18 21:12 Nasal Cannula 2.00 11/16/18 21:00 100 21 102/42 (62) 98 Room Air 11/16/18 20:25 93 99 21 11/16/18 20:00 96 Room Air 11/16/18 20:00 93 15 85/42 (56) 99 Room Air 11/16/18 20:00 98.5 11/16/18 19:00 93 11/16/18 19:00 92 18 103/68 (80) 97 Room Air 11/16/18 18:18 91 11/16/18 18:10 Room Air 11/16/18 18:10 94 20 101/69 (80) 96 Room Air 11/16/18 17:48 84 20 109/77 (88) 99 Room Air 11/16/18 12:50 97.6 95 18 149/94 (112) 95 11/16/18 11:55 99.1 90 25 82/44 (57) 97 Room Air I & O 11/17/18 07:00 Intake Total 6237.5 ml Output Total 1550 ml Balance 4687.5 ml Height & Weight Height: 6'0.00" Weight: 249lbs. 0.0oz. 112.885603bs; 33.8 BMI Method:Stated General Appearance: WD/WN, Mild Distress, Obese HEENT: PERRL/EOMI, Other (dry mucous membranes) Neck: Normal Inspection, Supple Respiratory: Lungs Clear, No Accessory Muscle Use, No Respiratory Distress Cardiovascular: Regular Rate, Rhythm, No JVD, No Murmur Capillary Refill: Less Than 3 Seconds Gastrointestinal: soft, no organomegaly, no pulsatile mass; No guarding, No rebound; tenderness (diffusely), hernia (multiple small ventral/incisional hernias.....in midline) Extremity: Normal Capillary Refill, No Calf Tenderness, No Pedal Edema Neurologic/Psychiatric: Alert, Oriented x3, No Motor/Sensory Deficits, Normal Mood/Affect Skin: Normal Color, Warm/Dry; No Mottled, No Petechia Results Lab Laboratory Tests 11/16/18 12:55 11/17/18 03:40 Assessment/Plan Assessment/Plan Severe Septic shock -Levophed gtt -IVF -Garcia cultures -Vanco/Zosyn Metabolic acidosis CT -IVF SBO -NPO UTI -vanco/zosyn Crohn dx -Surgery following Immunosuppressed SCARLET BROWNE DO Nov 17, 2018 04:40
[2018-11-17] MEDS ORDERED: CALCIUM GLUC. 10% 4.65 MEQ/10 ML VIAL IV ONE (04:45)
--- NOTE | 2018-11-17 04:55 | NUR ---
0130-NOTIFIED E-ICU OF PT HEART RATE 160'S-170'S, PT ASYMPTOMATIC, ON LEVO AT 5, NS AT 150ML/HR, ORDERS FOR AMIODARONE BOLUS AND START AMIODARONE DRIP. E-ICU THINKS PT IN AFIB, EKG STAT 0200-NOTIFIED E-ICU OF PT HEART RATE CONTINUING TO BE IN 160'S. PT STILL ASYMPTOMATIC, E-ICU DECIDES TO CARDIOVERT 0255-DR ESPARZA IN ROOM TO SUPERVISE, ADMIN 100MCG OF FENTANYL IV AND 4MG OF VERSED PER E-ICU, 030-NASAL TRUMPET INSERTED INTO LEFT NARE 030-HR 176, DELIVERED SHOCK 120 J, BP 86/77, NS WIDE OPEN 030-HR DECREASED AND THEN INCREASED TO 176, O2 100% RR13 BP 106/68 030-DELIVERED SECOND SHOCK 150 J- HR IN 90'S 0315-START CARDIZEM AT 5 AND DO NOT TITRATE, ORDERS PER E-ICU TO REPORT A HEART RATE GREATER THAN 110 BPM SUSTAINED FOR LONGER THAN 2 MINUTES. STAT EKG DONE, NSR
--- NOTE | 2018-11-17 05:02 | Pulmonary Progress Note ---
Subjective Time Seen by a Provider: 06:24 Subjective/Events-last exam Pt went into Afib RVR last night and was cardioverted per EICU. Sepsis Event Evaluation Height, Weight, BMI Height: 6'0.00" Weight: 249lbs. 0.0oz. 112.760601bs; 33.8 BMI Method:Stated Focused Exam Lactate Level 11/16/18 12:55: Lactic Acid Level 1.92 Exam Exam Vital Signs Date Time Temp Pulse Resp B/P (MAP) Pulse Ox O2 Delivery O2 Flow Rate FiO2 11/17/18 04:00 98 Room Air 11/17/18 04:00 98.5 11/17/18 04:00 88 21 95/62 (73) 100 Nasal Cannula 2.00 11/17/18 03:00 172 13 86/77 (80) 98 Nasal Cannula 2.00 11/17/18 02:00 158 20 101/62 (75) 99 Nasal Cannula 2.00 11/17/18 01:07 94 11/17/18 01:00 93 14 108/64 (79) 98 Nasal Cannula 2.00 11/17/18 00:00 93 21 121/74 (90) 99 Nasal Cannula 2.00 11/17/18 00:00 96 Room Air 11/17/18 00:00 98.0 11/16/18 23:00 98 19 108/57 (74) 99 Nasal Cannula 2.00 11/16/18 22:33 95 21 103/68 (80) 98 Nasal Cannula 2.00 11/16/18 21:12 Nasal Cannula 2.00 11/16/18 21:00 100 21 102/42 (62) 98 Room Air 11/16/18 20:25 93 99 21 11/16/18 20:00 96 Room Air 11/16/18 20:00 93 15 85/42 (56) 99 Room Air 11/16/18 20:00 98.5 11/16/18 19:00 93 11/16/18 19:00 92 18 103/68 (80) 97 Room Air 11/16/18 18:18 91 11/16/18 18:10 Room Air 11/16/18 18:10 94 20 101/69 (80) 96 Room Air 11/16/18 17:48 84 20 109/77 (88) 99 Room Air 11/16/18 12:50 97.6 95 18 149/94 (112) 95 11/16/18 11:55 99.1 90 25 82/44 (57) 97 Room Air I & O 11/17/18 07:00 Intake Total 6237.5 ml Output Total 1550 ml Balance 4687.5 ml Height & Weight Height: 6'0.00" Weight: 249lbs. 0.0oz. 112.860388gx; 33.8 BMI Method:Stated General Appearance: WD/WN, Mild Distress, Obese HEENT: PERRL/EOMI, Other (dry mucous membranes) Neck: Normal Inspection, Supple Respiratory: Lungs Clear, No Accessory Muscle Use, No Respiratory Distress Cardiovascular: Regular Rate, Rhythm, No JVD, No Murmur Capillary Refill: Less Than 3 Seconds Gastrointestinal: soft, no organomegaly, no pulsatile mass; No guarding, No rebound; tenderness (diffusely), hernia (multiple small ventral/incisional hernias.....in midline) Extremity: Normal Capillary Refill, No Calf Tenderness, No Pedal Edema Neurologic/Psychiatric: Alert, Oriented x3, No Motor/Sensory Deficits, Normal Mood/Affect Skin: Normal Color, Warm/Dry; No Mottled, No Petechia Results Lab Laboratory Tests 11/16/18 12:55 11/17/18 03:40 Assessment/Plan Assessment/Plan Severe Septic shock -Levophed gtt - titrate to D/C -IVF -Garcia cultures -Vanco/Zosyn Afib RVR s/p Cardioversion -Cardizem and amiodarone gtt -Consult cardiology Hypokalemia/hypomag -Replace Metabolic acidosis CT -IVF Abdominal pain with SBO and N/V -NPO -Surgery consulted UTI -vanco/zosyn Crohn dx -Surgery following Immunosuppressed SCARLET BROWNE DO Nov 17, 2018 05:02
[2018-11-17] MEDS: MAGNESIUM 1 GM/100 ML IVPB 100 ML IV SCH ×5 (05:03→08:27)
[2018-11-17] MEDS: POTASSIUM CL 10MEQ/50ML IVPB 50 ML IV SCH ×9 (05:03→10:14)
[2018-11-17] MEDS: KCL 20 MEQ TAB (K-DUR) PO SCH (05:04)
[2018-11-17] MEDS ORDERED: CALCIUM GLUC. 10% 4.65 MEQ/10 ML VIAL ONE (05:04)
[2018-11-17 05:05] LABS: TOTAL PROTEIN 5.5 GM/DL (6.4-8.2)
[2018-11-17] MEDS ORDERED: NS (IVPB) 50 ML ONE (05:05)
[2018-11-17] MEDS ORDERED: CALCIUM GLUCONATE 10% INJ 4.65 MEQ in NS (IVPB) 50 ML IV ONE (05:30)
[2018-11-17] MEDS: PIPERACILLIN/TAZO 4.5 GM/NS 100 ML IV SCH ×6 (05:50→21:46)
--- NOTE | 2018-11-17 07:27 | Progress Note-Hospitalist ---
Subjective HPI/CC On Admission Date Seen by Provider: Nov 17, 2018 Time Seen by Provider: 07:22 Pt is a 63yoCM with a PMH of bowel perf s/p resection, Crohn disease on chronic ummune supression, HTN who presented to the ER from his PCPs office for hypotension. He states that he was started on Inflexa for the first time on 11/13 and did not tolerate it well. He left his infusion with a headache and then developed severe nausea, vomiting, and diarrhea. He was seen in the ER on 11/14 and given IVF and DC-ed home. He followed up with his PCP today and was found to have a BP of 60/30 and sent to the ER for evaluation. He complains of watery diarrhea and cramping abdominal pain still. He had scant urine output on presentation as well. Subjective/Events-last exam Pt reports doing well. Still having diarrhea but abdominal pain improved. Reports history of c diff. Denies any CP or palpitations. Discussed with RN and pt went in ot a-fib with RVR last night. He necessitated cardioversion x2 and was started on a amiodarone and cardizem gtt. Focused Exam Lactate Level 11/16/18 12:55: Lactic Acid Level 1.92 11/17/18 05:48: Lactic Acid Level 0.76 Lactic Acid Level Laboratory Tests Test 11/17/18 05:48 Lactic Acid Level 0.76 MMOL/L (0.50-2.00) Objective Exam Vital Signs Vital Signs Date Time Temp Pulse Resp B/P (MAP) Pulse Ox O2 Delivery O2 Flow Rate FiO2 11/17/18 07:00 76 11/17/18 06:00 24 99/58 (72) 98 Nasal Cannula 2.00 11/17/18 04:00 98.5 11/16/18 20:25 21 Capillary Refill : Less Than 3 Seconds General Appearance: No Apparent Distress, WD/WN, Obese Respiratory: Lungs Clear, No Accessory Muscle Use, No Respiratory Distress Cardiovascular: Regular Rate, Rhythm, No JVD, No Murmur Gastrointestinal: Non Tender, Soft, Abnormal Bowel Sounds (quiet) Genital/Rectal: Other (arreaga in place) Extremity: Normal Capillary Refill, No Calf Tenderness, No Pedal Edema Neurologic/Psychiatric: Alert, Oriented x3, Normal Mood/Affect Skin: No Mottled, No Petechia Results/Procedures Lab Laboratory Tests 11/16/18 12:55 11/17/18 03:40 Patient resulted labs reviewed. Imaging: Reviewed Imaging Report Assessment/Plan Assessment and Plan Assess & Plan/Chief Complaint Septic Shock Diagnosis/Problems Diagnosis/Problems (1) Septic shock Assessment & Plan: BP improved but still on Levophed Titrate as able UTI as source, await cultures Vanc/Zosyn Still having profuse diarrhea so will check c diff Continue solu-cortef given recent steroid use (2) Atrial fibrillation with RVR Assessment & Plan: s/p cardioversion overnight Now in sinus rhythm On amiodarone and cardizem gtt Consult cardiology, appreciate recs Echo ordered ChadsVasc score of 1 (3) CT (acute kidney injury) Assessment & Plan: Improved to 1.4 today Continue IVF Monitor I/O UOP improving (4) UTI (urinary tract infection) Status: Acute Assessment & Plan: Continue Vanc and Zosyn Qualifiers: Urinary tract infection type: acute cystitis Hematuria presence: without hematuria Qualified Codes: N30.00 - Acute cystitis without hematuria (5) Small bowel obstruction Status: Acute Assessment & Plan: Dr Bravo consulted appreciate recs NPO Fentanyl for pain (6) Essential (primary) hypertension Assessment & Plan: Hold home meds (7) Crohn disease Status: Chronic Assessment & Plan: Received Inflexa on 11/13 Qualifiers: Gastrointestinal tract location: unspecified location Digestive disease complication type: unspecified complication Qualified Codes: K50.919 - Crohn' s disease, unspecified, with unspecified complications (8) Immunosuppressed status Assessment & Plan: On chronic immune suppression Cover with broad spectrum abx Continue Solu-cortef Clinical Quality Measures DVT/VTE Risk/Contraindication: Risk Factor Score Per Nursin RFS Level Per Nursing on Admit: 4+=Very High PRANAY TORO MD Nov 17, 2018 07:27
--- NOTE | 2018-11-17 07:48 | NUR ---
INCREASED VANCOMYCIN TO 1,250MG IV Q 12 HOURS DUE TO IMPROVED SCR, WILL CHECK A TROUGH LEVEL ON 11/18 @ 0700 AND ADJUST IF NEEDED.
[2018-11-17] MEDS ORDERED: DIGOXIN 0.25 MG/ML (LANOXIN) 2 ML AMP IV NR (08:00)
[2018-11-17] MEDS: HYDROCORTISONE 100 MG/2 ML (Solu-CORTEF) VIAL IV SCH ×3 (08:14→21:45)
--- NOTE | 2018-11-17 08:16 | NUR ---
250mg NS bolus over 30 minutes given at this time.
--- NOTE | 2018-11-17 08:37 | Diagnostic Imaging Report ---
INDICATION: Chest pain. ICU patient. Comparison with 11/16/2018. The lungs are well aerated with improved aeration today. There are no infiltrates. Heart remains upper limits of normal. No evidence of pulmonary edema. Right jugular line unchanged in good position. No pneumothorax or pleural effusion. IMPRESSION: Normal appearing portable chest. Dictated by: Dictated on workstation # [id number]
[2018-11-17] MEDS: VANCOMYCIN 1250 MG/NS 250 ML IVPB IV SCH ×4 (08:40→20:26)
[2018-11-17] MEDS: RT-ALBUTEROL/IPRATROPIUM 3 ML (DUONEB) VIAL INH SCH ×2 (08:55→20:32)
--- NOTE | 2018-11-17 09:02 | Consultation-Cardiology ---
HPI-Cardiology Cardiology Consultation: Date of Consultation 11/17/18 Time Seen by a Provider: 08:30 Date of Admission Attending Physician Tamica Jain MD Admitting Physician Orville Willard MD Consulting Physician ALEX BAHENA MD, MA, FACP, FACC, FSCAI, CCDS HPI: Chief Complaint: Reason for consultation: PAF with RVR HPI: 63 yo man with Crohn's disease (treated with infliximab infusions) who has recently had frequent nausea and vomiting and diarrhea and was admitted on with abdominal discomfort and suspected SBO, but there has been no distinct evidence of such. Last night he went into PAF and was treated with amiodarone and elec CV that was supervised by EICU. He does not report chest pain or palpitations or shortness of breath or syncope. Abd discomfort and N/V/D are slowly improving. Review of Systems-Cardiology Review of Systems Constitutional: malaise, tiredness Eyes: No vision change Ears/Nose/Throat: No ear discharge, No nasal drainage, No recent hearing loss Respiratory: As described under HPI Cardiovascular: As described under HPI Gastrointestinal: As described under HPI Genitourinary: No dysuria, No hematuria, No urine frequency changes Musculoskeletal: No back pain, No joint pain Skin: No rash, No ulcerations Psychiatric/Neurological: No seizure, No focal weakness, No syncope All Other Systems Reviewed Negative Unless Noted: Yes [id number] Hx Patient Social History Alcohol Use: Denies Use Recreational Drug Use: No Smoking Status: Never a Smoker Recent Foreign Travel: No Recent Infectious Disease Expo: No Hospitalization with Isolation: Denies Immunizations Up To Date Date of Pneumonia Vaccine: Aug 03, 2010 Date of Influenza Vaccine: Aug 11, 2018 Past Medical History PMH As described under Assessment. Family Medical History Family History: Patient reports no known family medical history. Allergies and Home Medications Allergies Coded Allergies: morphine (Unverified Allergy, Severe, HEART STOPPED, 11/17/18) hydromorphone HCl (Unverified Allergy, Unknown, HIVES, 11/14/18) oxycodone (Unverified Allergy, Unknown, HIVES, 11/14/18) meperidine HCl (Unverified Adverse Reaction, Mild, N/V, 11/17/18) Home Medications Azathioprine 50 Mg Tablet, 150 MG PO BID, (Reported) Cyanocobalamin 1,000 Mcg/Ml Vial, 1,000 MCG IJ TWICE A MONTH, (Reported) LAST DOSE 12-26-12 Diphenoxylate Hcl/Atrop Sulf 1 Each Tablet, 2 TAB PO UP TO 4 TIMES DAILY PRN, ( Reported) PRN DIARRHEA Ergocalciferol 50,000 Unit Capsule, 50,000 UNIT PO WEEKLY ON FRIDAYS, (Reported) Folic Acid 0.4 Mg Tablet, 0.4 MG PO DAILY, (Reported) Hctz/Lisinopril 1 Tab Tablet, 20-25 MG PO DAILY, (Reported) Lactobacillus Rhamnosus Gg 1 Each Capsule, 1 EACH PO DAILY, (Reported) Montelukast Sodium 10 Mg Tablet, 10 MG PO HS, (Reported) Nadolol 40 Mg Tab, 40 MG PO TID, (Reported) [place]-3 Fatty Acids/Fish Oil 1 Each Capsule, 1,000 MG PO DAILY, (Reported) Ondansetron HCl 4 Mg Tab, 4 MG PO Q4H PRN for NAUSEA/VOMITING-1ST LINE Prescribed by: LUIZA JUÁREZ on 11/15/18 0010 Pantoprazole Sod 40 Mg Tab, 40 MG PO DAILY, (Reported) Paroxetine Hcl 20 Mg Tablet, 20 MG PO DAILY, (Reported) Potassium Citrate 10 Meq Tablet.sa, 20 MEQ PO BID, (Reported) Prednisone 10 Mg Tab, 10 MG PO UD PRN, (Reported) TAKES 5 WEEK TAPER DOSE OF 50MG FOR 1 WEEK, 40MG FOR 1 WEEK, 30MG FOR 1 WEEK , 20MG FOR 1 WEEK, 10MG FOR 1 WEEK PRN CHRON'S FLARE UP Simvastatin 10 Mg Tablet, 10 MG PO HS, (Reported) Tadalafil 2.5 Mg Tablet, 5 MG PO DAILY PRN, (Reported) PRN ED TAKES 1 TAB OF 5MG PRN Tramadol Hcl 50 Mg Tablet, 100 MG PO TID PRN, (Reported) PRN PAIN Patient Home Medication List Home Medication List Reviewed: Yes Physical Exam-Cardiology Physical Exam Vital Signs/I&O 11/16/18 11/16/18 11/16/18 11/16/18 21:00 21:12 22:33 23:00 Pulse 100 95 98 Resp B/P (MAP) 102/42 (62) 103/68 (80) 108/57 (74) Pulse Ox 98 98 99 O2 Delivery Room Air Nasal Cannula Nasal Cannula Nasal Cannula O2 Flow Rate 2.00 2.00 2.00 11/17/18 11/17/18 11/17/18 11/17/18 00:00 00:00 00:00 01:00 Temp 98.0 Pulse 93 93 Resp 21 14 B/P (MAP) 121/74 (90) 108/64 (79) Pulse Ox 96 99 98 O2 Delivery Room Air Nasal Cannula Nasal Cannula O2 Flow Rate 2.00 2.00 11/17/18 11/17/18 11/17/18 11/17/18 01:07 02:00 03:00 04:00 Pulse 94 158 172 88 Resp 20 13 21 B/P (MAP) 101/62 (75) 86/77 (80) 95/62 (73) Pulse Ox 99 98 100 O2 Delivery Nasal Cannula Nasal Cannula Nasal Cannula O2 Flow Rate 2.00 2.00 2.00 11/17/18 11/17/18 11/17/18 11/17/18 04:00 04:00 05:00 06:00 Temp 98.5 Pulse 84 84 Resp 17 24 B/P (MAP) 96/54 (68) 99/58 (72) Pulse Ox 98 99 98 O2 Delivery Room Air Nasal Cannula Nasal Cannula O2 Flow Rate 2.00 2.00 11/17/18 11/17/18 07:00 07:00 Pulse 76 67 Resp 27 B/P (MAP) 107/67 (80) Pulse Ox 99 O2 Delivery Nasal Cannula O2 Flow Rate 2.00 11/16/18 23:59 Intake Total 5600 ml Output Total 650 ml Balance 4950 ml Capillary Refill : Less Than 3 Seconds Constitutional: AAO x 3, well-developed, well-nourished HEENT: EOMI, hearing is well preserved; No xanthelasmas are seen Neck: No carotid bruit; carotid pulses are 2 + bilaterally, with good upstrokes Respiratory: No accessory muscle use; lungs clear to percussion, lungs clear to auscultation Cardiovascular: regular rate-rhythm, S1 and S2, systolic murmur (soft WENDY at card base) Gastrointestinal: No tender; soft; No guarding, No rebound; audible bowel sounds Extremities: No clubbing, No cyanosis, No significant edema Neurologic/Psychiatric: oriented x 3, grossly intact, power is 5/5 both on sides Skin: No rash on exposed areas, No ulcerations on exposed areas Lymphatic: no adenopathy (neck, axilla or groin) Data Review Labs Laboratory Tests 11/16/18 12:55: White Blood Count 26.0H, Red Blood Count 4.50, Hemoglobin 14.3, Hematocrit 43, Mean Corpuscular Volume 96, Mean Corpuscular Hemoglobin 32, Mean Corpuscular Hemoglobin Concent 33, Red Cell Distribution Width 13.6, Platelet Count 130, Mean Platelet Volume 11.1H, Neutrophils (%) (Auto) 92H, Lymphocytes (%) (Auto) 2L, Monocytes (%) (Auto) 6, Eosinophils (%) (Auto) 0, Basophils (%) (Auto) 0, Neutrophils # (Auto) 23.9H, Lymphocytes # (Auto) 0.6L, Monocytes # (Auto) 1.4H, Eosinophils # (Auto) 0.1, Basophils # (Auto) 0.1, Neutrophils % (Manual) 72, Lymphocytes % (Manual) 2, Monocytes % (Manual) 4, Eosinophils % (Manual) 0, Basophils % (Manual) 0, Band Neutrophils 21, Reactive Lymphocytes 1, Toxic Granulation 3+, Blood Morphology Comment NORMAL, Prothrombin Time 14.2, INR Comment 1.1, Activated Partial Thromboplast Time 32, Sodium Level 130L, Potassium Level 3.5L, Chloride Level 100, Carbon Dioxide Level 17L, Anion Gap 13 , Blood Urea Nitrogen 24H, Creatinine 3.12#H, Estimat Glomerular Filtration Rate 20, BUN/Creatinine Ratio 8, Glucose Level 116H, Lactic Acid Level 1.92, Calcium Level 8.5, Corrected Calcium 8.7, Total Bilirubin 1.1H, Aspartate Amino Transf (AST/SGOT) 43H, Alanine Aminotransferase (ALT/SGPT) 32, Alkaline Phosphatase 38L, Total Creatine Kinase 201H, Troponin I < 0.028, Total Protein 6.9, Albumin 3.7 11/16/18 13:20: Urine Color YELLOW, Urine Clarity SLIGHTLY CLOUDY, Urine pH 5, Urine Specific [place] 1.030H, Urine Protein 3+H, Urine Glucose (UA) 1+H, Urine Ketones 1+H, Urine Nitrite POSITIVEH, Urine Bilirubin 1+H, Urine Urobilinogen 1, Urine Leukocyte Esterase 1+H, Urine RBC (Auto) 4+H, Urine RBC RARE, Urine WBC 0-2, Urine Squamous Epithelial Cells RARE, Urine Renal Epithelial Cells NONE, Urine Crystals PRESENTH, Urine Amorphous Sediment MOD ZUHAIR URATESH, Urine Bacteria MODERATEH, Urine Casts PRESENT, Urine Hyaline Casts 10-25H, Urine Mucus NEGATIVE , Urine Culture Indicated NO 11/17/18 03:40: White Blood Count 16.2H, Red Blood Count 3.75L, Hemoglobin 12.2L, Hematocrit 37L , Mean Corpuscular Volume 98, Mean Corpuscular Hemoglobin 33, Mean Corpuscular Hemoglobin Concent 33, Red Cell Distribution Width 13.7, Platelet Count 90L, Mean Platelet Volume 11.1H, Neutrophils (%) (Auto) 93H, Lymphocytes (%) (Auto) 4L, Monocytes (%) (Auto) 3, Eosinophils (%) (Auto) 0, Basophils (%) (Auto) 0, Neutrophils # (Auto) 15.0H, Lymphocytes # (Auto) 0.6L, Monocytes # (Auto) 0.6, Eosinophils # (Auto) 0.0, Basophils # (Auto) 0.0, Sodium Level 137, Potassium Level 2.9L, Chloride Level 113#H, Carbon Dioxide Level 14L, Anion Gap 10, Blood Urea Nitrogen 21H, Creatinine 1.43H, Estimat Glomerular Filtration Rate 50, BUN/ Creatinine Ratio 15, Glucose Level 117H, Calcium Level 7.4L, Corrected Calcium 8.3L, Total Bilirubin 0.7, Aspartate Amino Transf (AST/SGOT) 32, Alanine Aminotransferase (ALT/SGPT) 25, Alkaline Phosphatase 34L, Total Protein 5.5L, Albumin 2.9L, Phosphorus Level 2.5, Magnesium Level 1.4L, B-Type Natriuretic Peptide 104.7H 11/17/18 05:48: Lactic Acid Level 0.76 Laboratory Tests 11/16/18 12:55 11/17/18 03:40 A/P-Cardiology Assessment/Admission Diagnosis PAF with RVR, likely due to electrolyte abnormalities and acute kidney injury CT-stage 3 due to ATN due to intravascular volume depletion Intravascular volume depletion due to N/V/D due to Crohn's flare Crohn's disease treated with infliximab and prednisone 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 When able, stroke prophylaxis with ASA, given CHADS-VASc 1 * Though PAF seemingly related to CT and elec abn, we recommend basic screening : echo, TSH * I discussed his case with Dr Jain on the phone this am Clinical Quality Measures DVT/VTE Risk/Contraindication: Risk Factor Score Per Nursin RFS Level Per Nursing on Admit: 4+=Very High ALEX BAHENA MD FACP FACC CCDS Nov 17, 2018 09:02
--- NOTE | 2018-11-17 10:09 | NUR ---
Pt is Alevism but does not request Communion. Ok if a bulb packer comes by.
[2018-11-17] MEDS: LACTOBACILLUS ACIDOPHILUS (PROBIOTIC) CAPSULE PO SCH ×2 (10:16→17:48)
[2018-11-17] MEDS ORDERED: MONT10TA24 PO (10:21)
[2018-11-17] MEDS ORDERED: PANT40TA3 PO (10:21)
[2018-11-17] MEDS ORDERED: SIMV10TA3 PO (10:21)
[2018-11-17] MEDS ORDERED: CNC1KV IM (10:21)
[2018-11-17] MEDS ORDERED: PRD20T PO (10:21)
[2018-11-17] MEDS ORDERED: PRAS50CA2 PO (10:21)
[2018-11-17] MEDS ORDERED: FISH1CAP15 PO (10:21)
[2018-11-17] MEDS ORDERED: L.AC1CAP6 PO (10:21)
[2018-11-17] MEDS ORDERED: TAMS0.4C2 PO (10:21)
[2018-11-17] MEDS ORDERED: AZAT50TA PO ×2 (10:21)
[2018-11-17] MEDS ORDERED: PARO20TA5 PO (10:21)
[2018-11-17] MEDS ORDERED: AMOX1TAB12 PO (10:21)
[2018-11-17] MEDS ORDERED: FOLI0.4T2 PO (10:21)
[2018-11-17] MEDS ORDERED: DIPH1TAB PO (10:35)
[2018-11-17] MEDS ORDERED: NADO20TA10 PO (10:35)
[2018-11-17] MEDS ORDERED: LISI1TAB10 PO (10:35)
[2018-11-17] MEDS ORDERED: TRAM50TA2 PO (10:35)
[2018-11-17] MEDS ORDERED: ERGO50006 PO (10:35)
[2018-11-17] MEDS ORDERED: INFL100V2 IV (10:35)
[2018-11-17] MEDS ORDERED: MULT-178 PO (10:35)
[2018-11-17] MEDS ORDERED: POTA10TA17 PO (11:07)
[2018-11-17] MEDS ORDERED: TADA5TAB3 PO (11:07)
[2018-11-17] MEDS ORDERED: NADO40TA PO (11:07)
--- NOTE | 2018-11-17 11:10 | NUR ---
PATIENT HAD A DETAILED LIST OF HIS MEDICATIONS WITH HIM HOWEVER THE EXT MED HX SHOWS SEVERAL OF THEM PAST DUE FOR REFILLS. I SPOKE WITH THE PATIENT WHO STATES HE IS TAKING THEM HOWEVER I ALSO VERIFIED WITH ANTONIOEDNA THAT THE EXT MED HX IS SHOWING ACCURATE INFORMATION. I ALSO CALLED [facility] IN [place] AND THEY DID NOT HAVE THE PATIENT ON FILE. PAST DUE MEDICATIONS INCLUDE THE FOLLOWING: (I LEFT THEM ON THE MED REC SINCE HE IS ADAMANT THAT HE IS STILL TAKING THEM AND NOTED THE PAST DUE FILL DATES) -VITAMIN D2 28594 UNITS WEEKLY (NO REFILL ON RECORD AT [facility], DR. CRONIN VERIFIED HE WAS PRESCRIBED D2 BUT A LONG TIME AGO.) -LISINOPRIL HCTZ 20-25 (LAST FILLED #90 01-30-18) -NADOLOL 40MG TID #270 LAST FILLED OCT 2017- HE STATES HE IS ONLY TAKING THIS BID HOWEVER HIS LIST STATES 10MG BID. I EXPLAINED IT DOES NOT COME IN A 10MG TAB, HE SAYS HE DOES NOT CUT ANYTHING IN HALF) -POTASSIUM 1080 FILLED #180 TID- (HIS LIST STATES HE TAKES 40MEQ BID) CIALIS, AND TRAMADOL HAVE NOT BEEN FILLED RECENTLY BUT HE ONLY TAKES THEM PRN. HE TAKES FISH OIL, PROBIOTIC, MTV, AND FOLIC ACID OTC. HIS LIST ALSO STATES ABILIFY 10MG BUT THAT WAS LAST FILLED IN DECEMBER 2017 - HE STATES HE IS NOT CURRENTLY TAKING THIS.
--- NOTE | 2018-11-17 11:32 | Progress Note ---
Subjective Time Seen by a Provider: 11:17 Subjective/Events-last exam Pt seen and examined, states he feels great. He denies abdominal pain, states the diarrhea seem better, he is not bloated and his only complaint was some cramping in his legs. He is hungry and would like to eat. Review of Systems General: No Chills, No Night Sweats Pulmonary: No Dyspnea, No Cough Cardiovascular: No: Chest Pain, Palpitations Gastrointestinal: No: Nausea, Vomiting Focused Exam Lactate Level 11/16/18 12:55: Lactic Acid Level 1.92 11/17/18 05:48: Lactic Acid Level 0.76 Objective Exam Vital Signs Date Time Temp Pulse Resp B/P (MAP) Pulse Ox O2 Delivery O2 Flow Rate FiO2 11/17/18 11:15 97 Room Air 11/17/18 11:00 74 19 106/68 (81) 98 Nasal Cannula 2.00 11/17/18 10:00 74 34 108/76 (87) 97 Nasal Cannula 2.00 11/17/18 09:00 77 10 118/45 (69) 100 Nasal Cannula 2.00 11/17/18 08:57 Nasal Cannula 1.00 11/17/18 08:00 65 29 118/63 (81) 99 Nasal Cannula 2.00 11/17/18 08:00 97 Room Air 11/17/18 07:00 67 27 107/67 (80) 99 Nasal Cannula 2.00 11/17/18 07:00 76 11/17/18 06:00 84 24 99/58 (72) 98 Nasal Cannula 2.00 11/17/18 05:00 84 17 96/54 (68) 99 Nasal Cannula 2.00 11/17/18 04:00 98 Room Air 11/17/18 04:00 98.5 11/17/18 04:00 88 21 95/62 (73) 100 Nasal Cannula 2.00 11/17/18 03:00 172 13 86/77 (80) 98 Nasal Cannula 2.00 11/17/18 02:00 158 20 101/62 (75) 99 Nasal Cannula 2.00 11/17/18 01:07 94 11/17/18 01:00 93 14 108/64 (79) 98 Nasal Cannula 2.00 11/17/18 00:00 93 21 121/74 (90) 99 Nasal Cannula 2.00 11/17/18 00:00 96 Room Air 11/17/18 00:00 98.0 11/16/18 23:00 98 19 108/57 (74) 99 Nasal Cannula 2.00 11/16/18 22:33 95 21 103/68 (80) 98 Nasal Cannula 2.00 11/16/18 21:12 Nasal Cannula 2.00 11/16/18 21:00 100 21 102/42 (62) 98 Room Air 11/16/18 20:25 93 99 21 11/16/18 20:00 96 Room Air 11/16/18 20:00 93 15 85/42 (56) 99 Room Air 11/16/18 20:00 98.5 11/16/18 19:00 93 11/16/18 19:00 92 18 103/68 (80) 97 Room Air 11/16/18 18:18 91 11/16/18 18:10 Room Air 11/16/18 18:10 94 20 101/69 (80) 96 Room Air 11/16/18 17:48 84 20 109/77 (88) 99 Room Air 11/16/18 12:50 97.6 95 18 149/94 (112) 95 11/16/18 11:55 99.1 90 25 82/44 (57) 97 Room Air I & O 11/17/18 07:00 Intake Total 6550.5 ml Output Total 2250 ml Balance 4300.5 ml Capillary Refill : Less Than 3 Seconds General Appearance: No Apparent Distress, WD/WN, Obese HEENT: Pharynx Normal, Moist Mucous Membranes; No Scleral Icterus (L), No Scleral Icterus (R) Respiratory: Chest Non Tender, Lungs Clear, Normal Breath Sounds, No Accessory Muscle Use, No Respiratory Distress Cardiovascular: Regular Rate, Rhythm, No JVD, No Murmur Gastrointestinal: soft, no organomegaly, no pulsatile mass; No guarding, No rebound; tenderness (only with deep palpation), hernia (multiple small ventral/ incisional hernias.....in midline) Extremity: Normal Capillary Refill, No Calf Tenderness, No Pedal Edema Neurologic/Psychiatric: Alert, Oriented x3, Normal Mood/Affect Skin: No Mottled, No Petechia Results Lab Laboratory Tests 11/16/18 12:55: White Blood Count 26.0H, Red Blood Count 4.50, Hemoglobin 14.3, Hematocrit 43, Mean Corpuscular Volume 96, Mean Corpuscular Hemoglobin 32, Mean Corpuscular Hemoglobin Concent 33, Red Cell Distribution Width 13.6, Platelet Count 130, Mean Platelet Volume 11.1H, Neutrophils (%) (Auto) 92H, Lymphocytes (%) (Auto) 2L, Monocytes (%) (Auto) 6, Eosinophils (%) (Auto) 0, Basophils (%) (Auto) 0, Neutrophils # (Auto) 23.9H, Lymphocytes # (Auto) 0.6L, Monocytes # (Auto) 1.4H, Eosinophils # (Auto) 0.1, Basophils # (Auto) 0.1, Neutrophils % (Manual) 72, Lymphocytes % (Manual) 2, Monocytes % (Manual) 4, Eosinophils % (Manual) 0, Basophils % (Manual) 0, Band Neutrophils 21, Reactive Lymphocytes 1, Toxic Granulation 3+, Blood Morphology Comment NORMAL, Prothrombin Time 14.2, INR Comment 1.1, Activated Partial Thromboplast Time 32, Sodium Level 130L, Potassium Level 3.5L, Chloride Level 100, Carbon Dioxide Level 17L, Anion Gap 13 , Blood Urea Nitrogen 24H, Creatinine 3.12#H, Estimat Glomerular Filtration Rate 20, BUN/Creatinine Ratio 8, Glucose Level 116H, Lactic Acid Level 1.92, Calcium Level 8.5, Corrected Calcium 8.7, Total Bilirubin 1.1H, Aspartate Amino Transf (AST/SGOT) 43H, Alanine Aminotransferase (ALT/SGPT) 32, Alkaline Phosphatase 38L, Total Creatine Kinase 201H, Troponin I < 0.028, Total Protein 6.9, Albumin 3.7 11/16/18 13:20: Urine Color YELLOW, Urine Clarity SLIGHTLY CLOUDY, Urine pH 5, Urine Specific Radcliffe 1.030H, Urine Protein 3+H, Urine Glucose (UA) 1+H, Urine Ketones 1+H, Urine Nitrite POSITIVEH, Urine Bilirubin 1+H, Urine Urobilinogen 1, Urine Leukocyte Esterase 1+H, Urine RBC (Auto) 4+H, Urine RBC RARE, Urine WBC 0-2, Urine Squamous Epithelial Cells RARE, Urine Renal Epithelial Cells NONE, Urine Crystals PRESENTH, Urine Amorphous Sediment MOD ZUHAIR URATESH, Urine Bacteria MODERATEH, Urine Casts PRESENT, Urine Hyaline Casts 10-25H, Urine Mucus NEGATIVE , Urine Culture Indicated NO 11/17/18 03:40: White Blood Count 16.2H, Red Blood Count 3.75L, Hemoglobin 12.2L, Hematocrit 37L , Mean Corpuscular Volume 98, Mean Corpuscular Hemoglobin 33, Mean Corpuscular Hemoglobin Concent 33, Red Cell Distribution Width 13.7, Platelet Count 90L, Mean Platelet Volume 11.1H, Neutrophils (%) (Auto) 93H, Lymphocytes (%) (Auto) 4L, Monocytes (%) (Auto) 3, Eosinophils (%) (Auto) 0, Basophils (%) (Auto) 0, Neutrophils # (Auto) 15.0H, Lymphocytes # (Auto) 0.6L, Monocytes # (Auto) 0.6, Eosinophils # (Auto) 0.0, Basophils # (Auto) 0.0, Sodium Level 137, Potassium Level 2.9L, Chloride Level 113#H, Carbon Dioxide Level 14L, Anion Gap 10, Blood Urea Nitrogen 21H, Creatinine 1.43H, Estimat Glomerular Filtration Rate 50, BUN/ Creatinine Ratio 15, Glucose Level 117H, Calcium Level 7.4L, Corrected Calcium 8.3L, Total Bilirubin 0.7, Aspartate Amino Transf (AST/SGOT) 32, Alanine Aminotransferase (ALT/SGPT) 25, Alkaline Phosphatase 34L, Total Protein 5.5L, Albumin 2.9L, Phosphorus Level 2.5, Magnesium Level 1.4L, B-Type Natriuretic Peptide 104.7H 11/17/18 05:48: Lactic Acid Level 0.76 Assessment/Plan Assessment/Plan Assessment/Plan Abdominal Pain - resolved Intractable Nausea and Vomiting - resolved Crohn's Hyponatremia Hypokalemia UTI Pt is much improved today and has virtually no abdominal symptoms; I believe this was more of a viral gastroenteritis or possibly small flare up of his Crohn 's. His WBC came down to 16 today. He still needs Electrolyte replacement and ABX for UTI. I will start him on clears and sign off; can reconsult if needed. Clinical Quality Measures DVT/VTE Risk/Contraindication: Risk Factor Score Per Nursin RFS Level Per Nursing on Admit: 4+=Very High ZAK HLUL DO Nov 17, 2018 11:32
[2018-11-17] MEDS ORDERED: VANCOMYCIN 1250 MG/NS 250 ML IVPB IV SCH ×2 (18:30)
[2018-11-17] MEDS: ACETAMINOPHEN 325 MG TABLET PO PRN (21:45)
[2018-11-18] VITALS (12 sets, daily range): BP systolic 101–127; BP diastolic 59–91
[2018-11-18 03:31] LABS: BASOPHILS % (AUTO) 0 % (0-10); EOSINOPHILS % (AUTO) 0 % (0-10); HEMATOCRIT 33 % (40-54); HEMOGLOBIN 10.9 G/DL (13.3-17.7); LYMPHOCYTES # (AUTO) 0.5 X 10^3 (1.0-4.0); LYMPHOCYTES % (AUTO) 6 % (12-44); MEAN CORPUSCULAR HEMOGLOBIN 32 PG (25-34); MEAN CORPUSCULAR HGB CONC 33 G/DL (32-36); MEAN CORPUSCULAR VOLUME 98 FL (80-99); MEAN PLATELET VOLUME 11.1 FL (7.4-10.4); MONOCYTES # (AUTO) 0.4 X 10^3 (0.0-1.0); MONOCYTES % (AUTO) 5 % (0-12); NEUTROPHILS # (AUTO) 8.1 X 10^3 (1.8-7.8); NEUTROPHILS % (AUTO) 90 % (42-75); PLATELET COUNT 81 10^3/uL (130-400); RED CELL DISTRIBUTION WIDTH 13.9 % (10.0-14.5)
[2018-11-18 04:14] LABS: BUN/CREATININE RATIO 14; CALCIUM 7.5 MG/DL (8.5-10.1); CARBON DIOXIDE 17 MMOL/L (21-32); CHLORIDE 114 MMOL/L (98-107); CREATININE SERUM 0.88 MG/DL (0.60-1.30); GFR ESTIMATED > 60; GLUCOSE 127 MG/DL (70-105); MAGNESIUM 1.8 MG/DL (1.8-2.4); PHOSPHORUS 2.1 MG/DL (2.3-4.7); SODIUM 139 MMOL/L (135-145)
[2018-11-18] MEDS: DILTIAZEM INJECTION 125 MG in NS (IVPB) 100 ML IV SCH (04:26)
[2018-11-18] MEDS: POTASSIUM CL 10MEQ/50ML IVPB 50 ML IV SCH ×7 (04:45→06:46)
[2018-11-18] MEDS: KCL 20 MEQ TAB (K-DUR) PO SCH (04:46)
[2018-11-18] MEDS: MAGNESIUM 1 GM/100 ML IVPB 100 ML IV SCH (04:46)
--- NOTE | 2018-11-18 05:10 | Pulmonary Progress Note ---
Subjective Time Seen by a Provider: 07:11 Subjective/Events-last exam Pt is now off Cardizem and amiodarone gtt. Sepsis Event Evaluation Height, Weight, BMI Height: 6'0.00" Weight: 249lbs. 4.0oz. 113.304964az; 33.8 BMI Method:Stated Focused Exam Lactate Level 11/16/18 12:55: Lactic Acid Level 1.92 11/17/18 05:48: Lactic Acid Level 0.76 Exam Exam Vital Signs Date Time Temp Pulse Resp B/P (MAP) Pulse Ox O2 Delivery O2 Flow Rate FiO2 11/18/18 04:00 70 14 121/80 (94) 99 Nasal Cannula 2.00 11/18/18 03:25 97.1 11/18/18 03:00 79 13 107/59 (75) 98 Nasal Cannula 2.00 11/18/18 02:00 80 20 101/62 (75) 99 Nasal Cannula 2.00 11/18/18 01:00 82 14 107/70 (82) 100 Nasal Cannula 2.00 11/18/18 01:00 85 11/18/18 00:00 97.5 Nasal Cannula 2.00 11/18/18 00:00 Room Air 11/18/18 00:00 82 17 111/78 (89) 99 Nasal Cannula 2.00 11/17/18 23:00 83 14 111/75 (87) 99 Room Air 11/17/18 22:00 68 21 117/79 (92) 98 Room Air 11/17/18 21:00 83 22 113/80 (91) 98 Room Air 11/17/18 20:33 97 Room Air 11/17/18 20:00 Room Air 11/17/18 20:00 85 25 117/73 (88) 98 Room Air 11/17/18 19:50 99.1 81 19 141/97 (112) 99 Room Air 11/17/18 19:00 107 11/17/18 19:00 85 22 135/80 (98) 100 Nasal Cannula 2.00 11/17/18 18:00 75 26 105/70 (82) 100 Nasal Cannula 2.00 11/17/18 17:00 75 16 109/76 (87) 98 Nasal Cannula 2.00 11/17/18 16:00 96 Room Air 11/17/18 16:00 77 11 114/82 (93) 94 Nasal Cannula 2.00 11/17/18 15:00 84 16 118/74 (89) 92 Nasal Cannula 2.00 11/17/18 14:00 62 7 135/89 (104) 92 Nasal Cannula 2.00 11/17/18 13:00 90 22 97 Nasal Cannula 2.00 11/17/18 12:28 85 11/17/18 12:00 78 19 107/77 (87) 97 Nasal Cannula 2.00 11/17/18 11:15 97 Room Air 11/17/18 11:00 74 19 106/68 (81) 98 Nasal Cannula 2.00 11/17/18 10:00 74 34 108/76 (87) 97 Nasal Cannula 2.00 11/17/18 09:00 77 10 118/45 (69) 100 Nasal Cannula 2.00 11/17/18 08:57 Nasal Cannula 1.00 11/17/18 08:00 65 29 118/63 (81) 99 Nasal Cannula 2.00 11/17/18 08:00 97 Room Air 11/17/18 07:00 67 27 107/67 (80) 99 Nasal Cannula 2.00 11/17/18 07:00 76 11/17/18 06:00 84 24 99/58 (72) 98 Nasal Cannula 2.00 I & O 11/18/18 07:00 Intake Total 3062.5 ml Output Total 3800 ml Balance -737.5 ml Height & Weight Height: 6'0.00" Weight: 249lbs. 4.0oz. 113.378690fi; 33.8 BMI Method:Stated General Appearance: No Apparent Distress, WD/WN, Obese HEENT: PERRL/EOMI, Other (dry mucous membranes) Neck: Normal Inspection, Supple Respiratory: Lungs Clear, No Accessory Muscle Use, No Respiratory Distress Cardiovascular: Regular Rate, Rhythm, No JVD, No Murmur Capillary Refill: Less Than 3 Seconds Gastrointestinal: normal bowel sounds, non tender, soft, no organomegaly, no pulsatile mass; No guarding, No rebound; hernia (multiple small ventral/ incisional hernias.....in midline) Extremity: Normal Capillary Refill, No Calf Tenderness, No Pedal Edema Neurologic/Psychiatric: Alert, Oriented x3, No Motor/Sensory Deficits, Normal Mood/Affect Skin: Normal Color, Warm/Dry; No Mottled, No Petechia Results Lab Laboratory Tests 11/16/18 12:55 11/17/18 03:40 11/18/18 03:15 Assessment/Plan Assessment/Plan Severe Septic shock with Staph in 10/04 BC -Levophed gtt -Is now off -IVF- 150 - decrease to 50cc/hr -Garcia cultures -Vanco/Zosyn - Continue until cultures are finalized. Afib RVR s/p Cardioversion - Now sinus -Cardizem and amiodarone gtt - Have been switched to PO - cardiology following Hypokalemia/hypophos -Replace Metabolic acidosis - improving CT -IVF Abdominal pain with SBO and N/V - resolved -Cdiff is negative -NPO- advance diet -Surgery consulted UTI -vanco/zosyn Crohn dx -Surgery following Immunosuppressed SCARLET BROWNE DO Nov 18, 2018 05:10
[2018-11-18] MEDS ORDERED: POTASSIUM PHOSPHATE INJ 30 MM in NS (IVPB) 250 ML IV ONE (05:15)
[2018-11-18] MEDS: PIPERACILLIN/TAZO 4.5 GM/NS 100 ML IV SCH ×6 (05:36→21:14)
--- NOTE | 2018-11-18 06:45 | Diagnostic Imaging Report ---
INDICATION: Chest pain. COMPARISON: 11/17/2018 FINDINGS: Single frontal view of the chest demonstrates normal heart size and pulmonary vascularity. The lungs are well aerated and clear. No large pleural effusion or pneumothorax is seen. The visualized osseous structures show no acute abnormalities. Right internal jugular central venous catheter seen with tip in the high SVC. IMPRESSION: 1. No acute cardiopulmonary process. Dictated by: Dictated on workstation # [id number]
[2018-11-18] MEDS: LACTOBACILLUS ACIDOPHILUS (PROBIOTIC) CAPSULE PO SCH ×3 (06:55→16:40)
[2018-11-18] MEDS: NS IV 1000 ML 1,000 ML IV SCH (06:56)
[2018-11-18] MEDS: RT-ALBUTEROL/IPRATROPIUM 3 ML (DUONEB) VIAL INH SCH ×2 (07:00→20:48)
[2018-11-18] MEDS ORDERED: TROUGH ORDER-PHARMACY XX ONE (07:00)
[2018-11-18] MEDS: VANCOMYCIN 1250 MG/NS 250 ML IVPB IV SCH ×2 (08:45)
[2018-11-18] MEDS: ACETAMINOPHEN 325 MG TABLET PO PRN ×2 (10:55→21:04)
--- NOTE | 2018-11-18 11:23 | Progress Note-Hospitalist ---
Subjective HPI/CC On Admission Date Seen by Provider: Nov 18, 2018 Time Seen by Provider: 11:18 Pt is a 63yoCM with a PMH of bowel perf s/p resection, Crohn disease on chronic ummune supression, HTN who presented to the ER from his PCPs office for hypotension. He states that he was started on Inflexa for the first time on 11/13 and did not tolerate it well. He left his infusion with a headache and then developed severe nausea, vomiting, and diarrhea. He was seen in the ER on 11/14 and given IVF and DC-ed home. He followed up with his PCP today and was found to have a BP of 60/30 and sent to the ER for evaluation. He complains of watery diarrhea and cramping abdominal pain still. He had scant urine output on presentation as well. Subjective/Events-last exam Pt reports feeling better. Still having diarrhea but improved. Tolerating diet. No other complaints. Focused Exam Lactate Level 11/16/18 12:55: Lactic Acid Level 1.92 11/17/18 05:48: Lactic Acid Level 0.76 Objective Exam Vital Signs Vital Signs Date Time Temp Pulse Resp B/P (MAP) Pulse Ox O2 Delivery O2 Flow Rate FiO2 11/18/18 08:07 89 19 127/91 (103) 100 Nasal Cannula 2.00 11/18/18 08:00 96.8 11/16/18 20:25 21 Capillary Refill : Less Than 3 Seconds General Appearance: No Apparent Distress, Obese HEENT: Other Respiratory: Lungs Clear, No Accessory Muscle Use, No Respiratory Distress Cardiovascular: Regular Rate, Rhythm, No JVD, No Murmur Gastrointestinal: Normal Bowel Sounds, Non Tender, Soft Genital/Rectal: Other (arreaga in place) Extremity: No Pedal Edema Neurologic/Psychiatric: Alert, Oriented x3, Normal Mood/Affect Skin: Normal Color, Warm/Dry; No Mottled, No Petechia Results/Procedures Lab Laboratory Tests 11/18/18 03:15 Patient resulted labs reviewed. Imaging: Reviewed Imaging Report Assessment/Plan Assessment and Plan Assess & Plan/Chief Complaint Septic Shock Diagnosis/Problems Diagnosis/Problems (1) Septic shock Assessment & Plan: Shock resolved UTI as source but culture shows no growth DC Vanc as MRSA screen negative (2) Atrial fibrillation with RVR Assessment & Plan: Cardiology consulted, appreciate recs Off cardizem and amiodarone gtts Echo shows preserved EF CHADSVASC score of 1 will need ASA (3) CT (acute kidney injury) Assessment & Plan: Resolved, back to baseline (4) Small bowel obstruction Status: Acute Assessment & Plan: Dr Bravo consulted appreciate recs Currently tolerating diet (5) UTI (urinary tract infection) Status: Acute Assessment & Plan: Continue Vanc and Zosyn Qualifiers: Urinary tract infection type: acute cystitis Hematuria presence: without hematuria Qualified Codes: N30.00 - Acute cystitis without hematuria (6) Essential (primary) hypertension Assessment & Plan: Hold home meds (7) Crohn disease Status: Chronic Assessment & Plan: Received Inflexa on 11/13 Qualifiers: Gastrointestinal tract location: unspecified location Digestive disease complication type: unspecified complication Qualified Codes: K50.919 - Crohn' s disease, unspecified, with unspecified complications (8) Immunosuppressed status Assessment & Plan: On chronic immune suppression Continue Solu-cortef Clinical Quality Measures DVT/VTE Risk/Contraindication: Risk Factor Score Per Nursin RFS Level Per Nursing on Admit: 4+=Very High PRANAY TORO MD Nov 18, 2018 11:22
[2018-11-18 11:54] LABS: BUN/CREATININE RATIO 14; CALCIUM 7.5 MG/DL (8.5-10.1); CARBON DIOXIDE 19 MMOL/L (21-32); CHLORIDE 114 MMOL/L (98-107); CREATININE SERUM 0.79 MG/DL (0.60-1.30); GFR ESTIMATED > 60; GLUCOSE 102 MG/DL (70-105); POTASSIUM 3.1 MMOL/L (3.6-5.0); SODIUM 139 MMOL/L (135-145)
--- NOTE | 2018-11-18 13:00 | NUR ---
RECEIVED REPORT FROM MEETA DREW RN, THIS RN TO ASSUME CARE OF PT FOR REMAINDER OF SHIFT. PT SITTING UP WATCHING TV IN BED. NO C/O AT THIS TIME. WILL CONT TO MONITOR.
[2018-11-18] MEDS ORDERED: KCL 20 MEQ TAB (K-DUR) PO NR ×2 (13:40→20:00)
[2018-11-18] MEDS: LOPERAMIDE 2 MG (IMODIUM) CAP PO PRN (17:17)
--- NOTE | 2018-11-18 17:25 | Progress Note-Cardiology ---
Cardiology SOAP Progress Note Subjective: Continues with frequent watery diarrhea No cp or palp or syncope or shortness of breath Mild to mod abd discomfort Objective: I&O/Vital Signs 11/18/18 11/18/18 11/18/18 11/18/18 06:00 07:00 07:00 07:42 Pulse 69 73 73 Resp 18 19 B/P (MAP) 120/77 (91) 127/85 (99) Pulse Ox 98 100 100 O2 Delivery Nasal Cannula Room Air Nasal Cannula O2 Flow Rate 2.00 2.00 11/18/18 11/18/18 11/18/18 11/18/18 08:00 08:00 08:07 11:20 Temp 96.8 97.2 Pulse 89 81 Resp 19 18 B/P (MAP) 127/91 (103) 124/84 (97) Pulse Ox 100 100 O2 Delivery Room Air Nasal Cannula Nasal Cannula O2 Flow Rate 2.00 2.00 11/18/18 11/18/18 12:53 16:40 Temp 97.5 Pulse 82 11/18/18 00:00 Intake Total 2612.5 ml Output Total 1850 ml Balance 762.5 ml Weight (Pounds): 257 Weight (Ounces): 7.0 Weight (Calculated Kilograms): 116.917071 Constitutional: AAO x 3, well-developed, well-nourished Respiratory: No accessory muscle use; lungs clear to percussion, lungs clear to auscultation Cardiovascular: regular rate-rhythm, S1 and S2, systolic murmur (soft WENDY at card base) Gastrointestional: No tender; soft; No guarding, No rebound; audible bowel sounds Extremities: No clubbing, No cyanosis, No significant edema Neurologic/Psychiatric: oriented x 3, grossly intact, power is 5/5 both on sides Skin: No rash on exposed areas, No ulcerations on exposed areas Results/Procedures: Labs Laboratory Tests 11/17/18 17:49: Troponin I < 0.028 11/17/18 23:59: Troponin I < 0.028 11/18/18 03:15: White Blood Count 9.0, Red Blood Count 3.37L, Hemoglobin 10.9L, Hematocrit 33L, Mean Corpuscular Volume 98, Mean Corpuscular Hemoglobin 32, Mean Corpuscular Hemoglobin Concent 33, Red Cell Distribution Width 13.9, Platelet Count 81L, Mean Platelet Volume 11.1H, Neutrophils (%) (Auto) 90H, Lymphocytes (%) (Auto) 6L, Monocytes (%) (Auto) 5, Eosinophils (%) (Auto) 0, Basophils (%) (Auto) 0, Neutrophils # (Auto) 8.1H, Lymphocytes # (Auto) 0.5L, Monocytes # (Auto) 0.4, Eosinophils # (Auto) 0.0, Basophils # (Auto) 0.0, Sodium Level 139, Potassium Level 3.0L, Chloride Level 114H, Carbon Dioxide Level 17L, Anion Gap 8, Blood Urea Nitrogen 12, Creatinine 0.88, Estimat Glomerular Filtration Rate > 60, BUN/ Creatinine Ratio 14, Glucose Level 127H, Calcium Level 7.5L, Phosphorus Level 2.1L, Magnesium Level 1.8 11/18/18 07:00: Vancomycin Level Trough 13.7 11/18/18 11:15: Sodium Level 139, Potassium Level 3.1L, Chloride Level 114H, Carbon Dioxide Level 19L, Anion Gap 6, Blood Urea Nitrogen 11, Creatinine 0.79, Estimat Glomerular Filtration Rate > 60, BUN/Creatinine Ratio 14, Glucose Level 102, Calcium Level 7.5L Microbiology 11/16/18 Blood Culture - Preliminary, Resulted No growth 11/17/18 C. 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 When able, stroke prophylaxis with ASA, given CHADS-VASc 1 * Monitor labs ALEX BAHENA MD FACP FACC CCDS Nov 18, 2018 17:25
[2018-11-18] MEDS ORDERED: MILK OF MAGNESIA 400 MG/5 ML 30 ML UDC PO PRN (18:00)
[2018-11-18] MEDS ORDERED: ONDANSETRON 4 MG/2 ML (SDV) Z0FRAN IV PRN (18:00)
[2018-11-18] MEDS ORDERED: ACETAMINOPHEN 500 MG TAB (TYLENOL) PO PRN (18:00)
[2018-11-18] MEDS ORDERED: BENZONATATE 100 MG (TESSALON) CAPSULE PO PRN (18:00)
[2018-11-18] MEDS ORDERED: MELATONIN 3 MG TABLET PO PRN (18:00)
[2018-11-18] MEDS ORDERED: ANTACID SUSP 30 ML UDC (MYLANTA) PO PRN (18:00)
[2018-11-18] MEDS ORDERED: ACETAMINOPHEN 325 MG TABLET ONE ×2 (21:04→21:25)
[2018-11-19] VITALS (8 sets, daily range): BP systolic 96–134; BP diastolic 64–78
[2018-11-19] MEDS: NS IV 1000 ML 1,000 ML IV SCH (03:34)
[2018-11-19 03:48] LABS: BASOPHILS % (AUTO) 0 % (0-10); EOSINOPHILS # (AUTO) 0.1 10^3/uL (0.0-0.3); EOSINOPHILS % (AUTO) 2 % (0-10); HEMATOCRIT 31 % (40-54); HEMOGLOBIN 10.4 G/DL (13.3-17.7); LYMPHOCYTES # (AUTO) 0.9 X 10^3 (1.0-4.0); LYMPHOCYTES % (AUTO) 16 % (12-44); MEAN CORPUSCULAR HEMOGLOBIN 33 PG (25-34); MEAN CORPUSCULAR HGB CONC 33 G/DL (32-36); MEAN CORPUSCULAR VOLUME 98 FL (80-99); MONOCYTES # (AUTO) 0.4 X 10^3 (0.0-1.0); MONOCYTES % (AUTO) 7 % (0-12); NEUTROPHILS # (AUTO) 4.3 X 10^3 (1.8-7.8); NEUTROPHILS % (AUTO) 76 % (42-75); PLATELET COUNT 73 10^3/uL (130-400); WHITE BLOOD COUNT 5.7 10^3/uL (4.3-11.0)
[2018-11-19 04:31] LABS: BUN/CREATININE RATIO 16; CALCIUM 7.5 MG/DL (8.5-10.1); CARBON DIOXIDE 21 MMOL/L (21-32); CHLORIDE 114 MMOL/L (98-107); CREATININE SERUM 0.76 MG/DL (0.60-1.30); GFR ESTIMATED > 60; GLUCOSE 98 MG/DL (70-105); MAGNESIUM 1.4 MG/DL (1.8-2.4); PHOSPHORUS 1.5 MG/DL (2.3-4.7); POTASSIUM 3.2 MMOL/L (3.6-5.0); SODIUM 142 MMOL/L (135-145)
[2018-11-19] MEDS: PIPERACILLIN/TAZO 4.5 GM/NS 100 ML IV SCH ×6 (04:42→20:39)
[2018-11-19] MEDS: LACTOBACILLUS ACIDOPHILUS (PROBIOTIC) CAPSULE PO SCH ×3 (05:59→16:49)
[2018-11-19] MEDS: LOPERAMIDE 2 MG (IMODIUM) CAP PO PRN ×4 (06:34→19:12)
[2018-11-19] MEDS: RT-ALBUTEROL/IPRATROPIUM 3 ML (DUONEB) VIAL INH SCH ×2 (07:35→23:21)
[2018-11-19] MEDS: ACETAMINOPHEN 325 MG TABLET PO PRN ×2 (08:32→14:05)
[2018-11-19] MEDS ORDERED: KCL 20 MEQ TAB (K-DUR) PO NR ×2 (10:39→15:25)
--- NOTE | 2018-11-19 11:02 | NUR ---
BP 93/64, DR TORO NOTIFIED, POTASSIUM 40MEQ GIVEN, IV FLUIDS DC, DENIES PAIN OR SOB, CALL LIGHT WITHIN REACH
--- NOTE | 2018-11-19 11:04 | Progress Note-Hospitalist ---
Subjective HPI/CC On Admission Date Seen by Provider: Nov 19, 2018 Time Seen by Provider: 10:58 Pt is a 63yoCM with a PMH of bowel perf s/p resection, Crohn disease on chronic ummune supression, HTN who presented to the ER from his PCPs office for hypotension. He states that he was started on Inflexa for the first time on 11/13 and did not tolerate it well. He left his infusion with a headache and then developed severe nausea, vomiting, and diarrhea. He was seen in the ER on 11/14 and given IVF and DC-ed home. He followed up with his PCP today and was found to have a BP of 60/30 and sent to the ER for evaluation. He complains of watery diarrhea and cramping abdominal pain still. He had scant urine output on presentation as well. Subjective/Events-last exam Pt reports doing well. Still having diarrhea. Otherwise no complaints. Focused Exam Lactate Level 11/16/18 12:55: Lactic Acid Level 1.92 11/17/18 05:48: Lactic Acid Level 0.76 Objective Exam Vital Signs Vital Signs Date Time Temp Pulse Resp B/P (MAP) Pulse Ox O2 Delivery O2 Flow Rate FiO2 11/19/18 08:00 97.6 70 18 134/74 (94) 98 Room Air 11/19/18 07:32 21 11/18/18 23:59 2.00 Capillary Refill : Less Than 3 Seconds General Appearance: No Apparent Distress, Obese HEENT: Other Respiratory: Lungs Clear, No Accessory Muscle Use, No Respiratory Distress Cardiovascular: Regular Rate, Rhythm, No JVD, No Murmur Gastrointestinal: Normal Bowel Sounds, Non Tender, Soft Genital/Rectal: Other (arreaga in place) Extremity: No Pedal Edema Neurologic/Psychiatric: Alert, Oriented x3 Skin: Normal Color, Warm/Dry; No Mottled, No Petechia Results/Procedures Lab Laboratory Tests 11/18/18 11:15 11/19/18 03:40 Patient resulted labs reviewed. Imaging: Reviewed Imaging Report Assessment/Plan Assessment and Plan Assess & Plan/Chief Complaint Septic Shock Diagnosis/Problems Diagnosis/Problems (1) Septic shock Status: Resolved Assessment & Plan: Shock resolved UTI as source but culture shows no growth Deescalate to rocephin DC Vanc as MRSA screen negative Resolution Date/Time: 11/19/18 @ 11:05 (2) Atrial fibrillation with RVR Assessment & Plan: Cardiology consulted, appreciate recs Echo shows preserved EF CHADSVASC score of 1 will need ASA at discharge rate and rhythm controlled with no medications as this time (3) CT (acute kidney injury) Assessment & Plan: Resolved, back to baseline (4) Small bowel obstruction Status: Resolved Assessment & Plan: Dr Bravo consulted appreciate recs Currently tolerating diet having diarrhea Imodium for diarrhea Resolution Date/Time: 11/19/18 @ 11:18 (5) UTI (urinary tract infection) Status: Acute Assessment & Plan: Continue Vanc and Zosyn Qualifiers: Urinary tract infection type: acute cystitis Hematuria presence: without hematuria Qualified Codes: N30.00 - Acute cystitis without hematuria (6) Essential (primary) hypertension Assessment & Plan: BP well controlled Hold home meds (7) Crohn disease Status: Chronic Assessment & Plan: Received Inflexa on 11/13 Qualifiers: Gastrointestinal tract location: unspecified location Digestive disease complication type: unspecified complication Qualified Codes: K50.919 - Crohn' s disease, unspecified, with unspecified complications (8) Immunosuppressed status Assessment & Plan: On chronic immune suppression Hold home immunosuppressants still Continue Solu-cortef Clinical Quality Measures DVT/VTE Risk/Contraindication: Risk Factor Score Per Nursin RFS Level Per Nursing on Admit: 4+=Very High PRANAY TORO MD Nov 19, 2018 11:04
[2018-11-19] MEDS ORDERED: DIPHENOXYLATE/ATROPINE 2.5MG/0.025MG (LOMOTIL) TAB PO PRN (11:15)
--- NOTE | 2018-11-19 12:54 | Pulmonary Progress Note ---
Subjective Time Seen by a Provider: 13:21 Subjective/Events-last exam Pt appears to be doing better. Sepsis Event Evaluation Height, Weight, BMI Height: 6'0.00" Weight: 262lbs. 6.0oz. 119.340746dj; 33.8 BMI Method:Stated Focused Exam Lactate Level 11/16/18 12:55: Lactic Acid Level 1.92 11/17/18 05:48: Lactic Acid Level 0.76 Exam Exam Vital Signs Date Time Temp Pulse Resp B/P (MAP) Pulse Ox O2 Delivery O2 Flow Rate FiO2 11/19/18 12:04 98.0 78 18 96/64 (75) 97 Room Air 11/19/18 08:00 Room Air 11/19/18 08:00 97.6 70 18 134/74 (94) 98 Room Air 11/19/18 07:35 98 Room Air 11/19/18 07:32 74 98 21 11/19/18 07:00 74 11/19/18 04:35 97.2 74 20 113/71 (85) 98 Room Air 11/19/18 01:20 97.5 80 20 114/66 (82) 98 Room Air 11/19/18 01:00 72 11/18/18 23:59 97.6 80 14 110/77 (88) 100 Nasal Cannula 2.00 11/18/18 20:49 97 Room Air 11/18/18 20:00 89 17 115/77 (90) 96 Nasal Cannula 2.00 11/18/18 20:00 Room Air 11/18/18 19:38 97.2 11/18/18 19:00 85 11/18/18 16:40 97.5 I & O 11/19/18 07:00 Intake Total 2522.5 ml Output Total 2425 ml Balance 97.5 ml Height & Weight Height: 6'0.00" Weight: 262lbs. 6.0oz. 119.990659lk; 33.8 BMI Method:Stated General Appearance: No Apparent Distress, Obese HEENT: Other Respiratory: Lungs Clear, No Accessory Muscle Use, No Respiratory Distress Cardiovascular: Regular Rate, Rhythm, No JVD, No Murmur Capillary Refill: Less Than 3 Seconds Gastrointestinal: normal bowel sounds, non tender, soft, no organomegaly, no pulsatile mass; No guarding, No rebound; hernia (multiple small ventral/ incisional hernias.....in midline) Extremity: No Pedal Edema Neurologic/Psychiatric: Alert, Oriented x3 Skin: Normal Color, Warm/Dry; No Mottled, No Petechia Results Lab Laboratory Tests 11/18/18 03:15 11/18/18 11:15 11/19/18 03:40 Assessment/Plan Assessment/Plan Severe Septisis with Staph in 10/04 BC - improving -Levophed gtt -Is now off -IVF- 150 - decrease to 50cc/hr -Garcia cultures -Vanco/Zosyn - Afib RVR s/p Cardioversion - Now sinus -Cardizem and amiodarone gtt - Have been switched to PO - cardiology following CT -IVF Abdominal pain with SBO and N/V - resolved -Cdiff is negative -NPO- advance diet -Surgery consulted UTI -vanco/zosyn Crohn dx -Surgery following Immunosuppressed SCARLET BROWNE DO Nov 19, 2018 12:54
[2018-11-19] MEDS ORDERED: POTASSIUM CITRATE 10 MEQ (UROCIT-K) NON-FORMULARY PO SCH (13:00)
--- NOTE | 2018-11-19 14:44 | Progress Note-Cardiology ---
Cardiology SOAP Progress Note Subjective: Continues with watery diarrhea No cp or palp or syncope Mild gen abd discomfort as before Objective: I&O/Vital Signs 11/19/18 11/19/18 11/19/18 11/19/18 04:35 07:00 07:32 07:35 Temp 97.2 Pulse 74 74 74 Resp 20 B/P (MAP) 113/71 (85) Pulse Ox 98 98 98 O2 Delivery Room Air Room Air FiO2 21 11/19/18 11/19/18 11/19/18 11/19/18 08:00 08:00 12:04 13:01 Temp 97.6 98.0 Pulse 70 78 78 Resp 18 18 B/P (MAP) 134/74 (94) 96/64 (75) Pulse Ox 98 97 O2 Delivery Room Air Room Air Room Air 11/19/18 00:00 Intake Total 2372.5 ml Output Total 1725 ml Balance 647.5 ml Weight (Pounds): 262 Weight (Ounces): 6.0 Weight (Calculated Kilograms): 119.702112 Constitutional: AAO x 3, well-developed, well-nourished Respiratory: No accessory muscle use; lungs clear to percussion, lungs clear to auscultation Cardiovascular: regular rate-rhythm, S1 and S2, systolic murmur (soft WENDY at card base) Gastrointestional: No tender; soft; No guarding, No rebound; audible bowel sounds Extremities: No clubbing, No cyanosis, No significant edema Neurologic/Psychiatric: oriented x 3, grossly intact, power is 5/5 both on sides Skin: No rash on exposed areas, No ulcerations on exposed areas Results/Procedures: Labs Laboratory Tests 11/19/18 03:40: White Blood Count 5.7, Red Blood Count 3.20L, Hemoglobin 10.4L, Hematocrit 31L, Mean Corpuscular Volume 98, Mean Corpuscular Hemoglobin 33, Mean Corpuscular Hemoglobin Concent 33, Red Cell Distribution Width 14.0, Platelet Count 73L, Mean Platelet Volume 11.0H, Neutrophils (%) (Auto) 76H, Lymphocytes (%) (Auto) 16, Monocytes (%) (Auto) 7, Eosinophils (%) (Auto) 2, Basophils (%) (Auto) 0, Neutrophils # (Auto) 4.3, Lymphocytes # (Auto) 0.9L, Monocytes # (Auto) 0.4, Eosinophils # (Auto) 0.1, Basophils # (Auto) 0.0, Sodium Level 142, Potassium Level 3.2L, Chloride Level 114H, Carbon Dioxide Level 21, Anion Gap 7, Blood Urea Nitrogen 12, Creatinine 0.76, Estimat Glomerular Filtration Rate > 60, BUN/ Creatinine Ratio 16, Glucose Level 98, Calcium Level 7.5L, Phosphorus Level 1.5L , Magnesium Level 1.4L Microbiology 11/16/18 Blood Culture - Preliminary, Resulted No growth 11/17/18 C. difficile GDH Antigen & Toxins - Final, Complete 11/16/18 MRSA Screen - Final, Complete MRSA not isolated 11/16/18 Urine Culture - Final, Complete NO GROWTH Laboratory Tests 11/18/18 03:15 11/18/18 11:15 11/19/18 03:40 A/P: Assessment: PAF with RVR, likely due to electrolyte abnormalities and acute kidney injury CT-stage 3 due to ATN due to intravascular volume depletion, now resolved Intravascular volume depletion due to N/V/D due to Crohn's flare, now improved Flare of Crohn's disease that is chronically treated with infliximab and prednisone Suspected stress-related adrenal insufficiency Thrombocytopenia of unclear etiology, somewhat worse today Echo on 11/17/18: LVEF 60-65%, PASP 30-35 mmHg Plan: * Continue efforts at euvolemia and normal electrolytes * Holding off on anticoag due to thrombocytopenia. When able, stroke prophylaxis with ASA, given CHADS-VASc 1 * Monitor labs ALEX BAHENA MD FACP FAC CCDS Nov 19, 2018 14:44
[2018-11-19] MEDS: MAGNESIUM 1 GM/100 ML IVPB 100 ML IV SCH ×4 (16:02→19:12)
[2018-11-19] MEDS: PANTOPRAZOLE 40 MG (PROTONIX) TAB PO SCH (20:39)
[2018-11-19] MEDS: PROPRANOLOL 20 MG (INDERAL) TABLET PO SCH (20:39)
[2018-11-19] MEDS: TAMSULOSIN 0.4 MG (FLOMAX) CAP PO SCH (20:40)
[2018-11-19] MEDS: MONTELUKAST 10 MG (SINGULAIR) TAB PO SCH (20:40)
[2018-11-20 02:55] LABS: BASOPHILS % (AUTO) 1 % (0-10); EOSINOPHILS # (AUTO) 0.1 10^3/uL (0.0-0.3); EOSINOPHILS % (AUTO) 3 % (0-10); HEMATOCRIT 35 % (40-54); HEMOGLOBIN 11.5 G/DL (13.3-17.7); LYMPHOCYTES # (AUTO) 0.9 X 10^3 (1.0-4.0); LYMPHOCYTES % (AUTO) 22 % (12-44); MEAN CORPUSCULAR HEMOGLOBIN 32 PG (25-34); MEAN CORPUSCULAR HGB CONC 33 G/DL (32-36); MEAN CORPUSCULAR VOLUME 97 FL (80-99); MEAN PLATELET VOLUME 10.7 FL (7.4-10.4); MONOCYTES # (AUTO) 0.4 X 10^3 (0.0-1.0); MONOCYTES % (AUTO) 10 % (0-12); NEUTROPHILS # (AUTO) 2.8 X 10^3 (1.8-7.8); NEUTROPHILS % (AUTO) 65 % (42-75); PLATELET COUNT 82 10^3/uL (130-400); RED CELL DISTRIBUTION WIDTH 13.9 % (10.0-14.5); WHITE BLOOD COUNT 4.3 10^3/uL (4.3-11.0)
[2018-11-20 03:13] LABS: BUN/CREATININE RATIO 8; CALCIUM 7.6 MG/DL (8.5-10.1); CARBON DIOXIDE 23 MMOL/L (21-32); CHLORIDE 112 MMOL/L (98-107); CREATININE SERUM 0.75 MG/DL (0.60-1.30); GFR ESTIMATED > 60; GLUCOSE 86 MG/DL (70-105); MAGNESIUM 1.8 MG/DL (1.8-2.4); PHOSPHORUS 1.6 MG/DL (2.3-4.7); POTASSIUM 3.3 MMOL/L (3.6-5.0); SODIUM 140 MMOL/L (135-145)
[2018-11-20 04:00] VITALS: BP 123/58
[2018-11-20] MEDS: PIPERACILLIN/TAZO 4.5 GM/NS 100 ML IV SCH ×6 (04:44→20:04)
[2018-11-20] MEDS: LACTOBACILLUS ACIDOPHILUS (PROBIOTIC) CAPSULE PO SCH ×3 (06:32→19:29)
[2018-11-20] MEDS: FOLIC ACID 1 MG TAB PO SCH (07:21)
[2018-11-20] MEDS: RT-ALBUTEROL/IPRATROPIUM 3 ML (DUONEB) VIAL INH SCH ×2 (07:21→20:01)
[2018-11-20 08:00] VITALS: BP 116/74
[2018-11-20] MEDS: LOPERAMIDE 2 MG (IMODIUM) CAP PO PRN ×2 (08:31→15:34)
[2018-11-20] MEDS: PROPRANOLOL 20 MG (INDERAL) TABLET PO SCH ×2 (08:31→19:56)
[2018-11-20] MEDS: SIMvastatin 10 MG (ZOCOR) TAB PO SCH (08:31)
[2018-11-20] MEDS: PARoxetine 20 MG (PAXIL) TAB PO SCH (08:31)
--- NOTE | 2018-11-20 09:24 | Progress Note-Cardiology ---
Cardiology SOAP Progress Note Subjective: Continues with diarrhea No cp or palp or syncope Objective: I&O/Vital Signs 11/19/18 11/20/18 11/20/18 11/20/18 23:59 01:00 04:00 07:00 Temp 97.7 97.6 Pulse 83 80 73 76 Resp 16 18 B/P (MAP) 130/77 (94) 123/58 (79) Pulse Ox 98 98 O2 Delivery Room Air Room Air 11/20/18 07:21 Pulse Ox 98 O2 Delivery Nasal Cannula O2 Flow Rate 2.00 11/19/18 23:59 Intake Total 3030 ml Output Total 1500 ml Balance 1530 ml Weight (Pounds): 255 Weight (Ounces): 3.0 Weight (Calculated Kilograms): 115.684535 Constitutional: AAO x 3, well-developed, well-nourished Respiratory: No accessory muscle use; lungs clear to percussion, lungs clear to auscultation Cardiovascular: regular rate-rhythm, S1 and S2, systolic murmur (soft WENDY at card base) Gastrointestional: No tender; soft; No guarding, No rebound; audible bowel sounds Extremities: No clubbing, No cyanosis, No significant edema Neurologic/Psychiatric: oriented x 3, grossly intact, power is 5/5 both on sides Skin: No rash on exposed areas, No ulcerations on exposed areas Results/Procedures: Labs Laboratory Tests 11/20/18 02:50: White Blood Count 4.3, Red Blood Count 3.57L, Hemoglobin 11.5L, Hematocrit 35L, Mean Corpuscular Volume 97, Mean Corpuscular Hemoglobin 32, Mean Corpuscular Hemoglobin Concent 33, Red Cell Distribution Width 13.9, Platelet Count 82L, Mean Platelet Volume 10.7H, Neutrophils (%) (Auto) 65, Lymphocytes (%) (Auto) 22 , Monocytes (%) (Auto) 10, Eosinophils (%) (Auto) 3, Basophils (%) (Auto) 1, Neutrophils # (Auto) 2.8, Lymphocytes # (Auto) 0.9L, Monocytes # (Auto) 0.4, Eosinophils # (Auto) 0.1, Basophils # (Auto) 0.0, Sodium Level 140, Potassium Level 3.3L, Chloride Level 112H, Carbon Dioxide Level 23, Anion Gap 5, Blood Urea Nitrogen 6L, Creatinine 0.75, Estimat Glomerular Filtration Rate > 60, BUN/ Creatinine Ratio 8, Glucose Level 86, Calcium Level 7.6L, Phosphorus Level 1.6L , Magnesium Level 1.8 Microbiology 11/16/18 Blood Culture - Preliminary, Resulted No growth 11/17/18 C. difficile GDH Antigen & Toxins - Final, Complete 11/16/18 MRSA Screen - Final, Complete MRSA not isolated 11/16/18 Urine Culture - Final, Complete NO GROWTH Laboratory Tests 11/18/18 11:15 11/19/18 03:40 11/20/18 02:50 A/P: Assessment: PAF with RVR, likely due to electrolyte abnormalities and acute kidney injury ; CT resolved but elec abn persistent Flare of Crohn's disease that is chronically treated with infliximab and prednisone Suspected stress-related adrenal insufficiency Thrombocytopenia of unclear etiology, somewhat worse today Echo on 11/17/18: LVEF 60-65%, PASP 30-35 mmHg Plan: * Continue efforts at euvolemia and normal electrolytes * Holding off on anticoag due to thrombocytopenia. When able, stroke prophylaxis with ASA, given CHADS-VASc 1 * Monitor labs ALEX BAHENA MD FACP FACC CCDS Nov 20, 2018 09:24
[2018-11-20] MEDS ORDERED: KCL 20 MEQ TAB (K-DUR) PO ONE (09:30)
[2018-11-20] MEDS ORDERED: CHOLESTYRAMINE 4 GM (QUESTRAN LITE, PREVALITE) PKT PO SCH (10:00)
--- NOTE | 2018-11-20 10:58 | Pulmonary Progress Note ---
Sepsis Event Evaluation Height, Weight, BMI Height: 6'0.00" Weight: 255lbs. 3.0oz. 115.685011ed; 33.8 BMI Method:Stated Exam Exam Vital Signs Date Time Temp Pulse Resp B/P (MAP) Pulse Ox O2 Delivery O2 Flow Rate FiO2 11/20/18 08:00 97.4 84 20 116/74 (88) 95 Room Air 11/20/18 07:21 98 Nasal Cannula 2.00 11/20/18 07:00 76 11/20/18 04:00 97.6 73 18 123/58 (79) 98 Room Air 11/20/18 01:00 80 11/19/18 23:59 97.7 83 16 130/77 (94) 98 Room Air 11/19/18 20:00 Room Air 11/19/18 19:59 97.3 81 16 123/78 (93) 98 Room Air 11/19/18 19:00 100 11/19/18 15:35 97.7 80 16 130/73 (92) 98 Room Air 11/19/18 13:01 78 11/19/18 12:04 98.0 78 18 96/64 (75) 97 Room Air I & O 11/20/18 07:00 Intake Total 3250 ml Output Total 3700 ml Balance -450 ml Height & Weight Height: 6'0.00" Weight: 255lbs. 3.0oz. 115.639965on; 33.8 BMI Method:Stated General Appearance: No Apparent Distress, Obese HEENT: Other Respiratory: Lungs Clear, No Accessory Muscle Use, No Respiratory Distress Cardiovascular: Regular Rate, Rhythm, No JVD, No Murmur Capillary Refill: Less Than 3 Seconds Gastrointestinal: normal bowel sounds, non tender, soft, no organomegaly, no pulsatile mass; No guarding, No rebound; hernia (multiple small ventral/ incisional hernias.....in midline) Extremity: No Pedal Edema Neurologic/Psychiatric: Alert, Oriented x3 Skin: Normal Color, Warm/Dry; No Mottled, No Petechia Results Lab Laboratory Tests 11/18/18 11:15 11/19/18 03:40 11/20/18 02:50 Assessment/Plan Assessment/Plan Severe Septisis with Staph in 10/04 BC - improving -Levophed gtt -Is now off -IVF- 150 - decrease to 50cc/hr -Garcia cultures -Vanco/Zosyn - Afib RVR s/p Cardioversion - Now sinus -Cardizem and amiodarone gtt - Have been switched to PO - cardiology following CT -IVF Abdominal pain with SBO and N/V - resolved -Cdiff is negative -NPO- advance diet -Surgery consulted UTI -vanco/zosyn Crohn dx -Surgery following Immunosuppressed SCARLET BROWNE DO Nov 20, 2018 10:58
--- NOTE | 2018-11-20 11:54 | Progress Note-Hospitalist ---
Progress Note Progress Notes/Assess & Plan Date Seen 11/20/18 Time Seen by Provider: 11:45 Assessment & Plan The patient is a 63-year-old white male with Crohn's disease of long-standing. He has taken Remicade for many years with good results. He states that he had endoscopy in the last 6 months which shows showed no areas of active disease. He recently had a bio substitute for the Remicade he has used in rather immediately thereafter became ill at this point he is feeling much better but continues to have multiple stools per day. Physical exam: He is alert oriented and cheerful. Lungs are clear to auscultation. CV is regular. Abdomen is obese. Bowel sounds are active. Extremities show no pedal edema. Impression: Plan: FERNANDEZ [place] and telemetry. Add Questran to thicken the bowels. KARTHIK CLARKE MD Nov 20, 2018 11:54
[2018-11-20 12:00] VITALS: BP 137/78
[2018-11-20] MEDS ORDERED: MAGNESIUM 1 GM/100 ML IVPB 200 ML IV ONE (14:49)
[2018-11-20] MEDS: MAGNESIUM 1 GM/100 ML IVPB 100 ML IV SCH ×2 (15:01→15:42)
[2018-11-20 15:51] VITALS: BP 131/82
[2018-11-20 19:45] VITALS: BP 143/74
[2018-11-20] MEDS: KCL 20 MEQ TAB (K-DUR) PO SCH (19:57)
[2018-11-20] MEDS: TAMSULOSIN 0.4 MG (FLOMAX) CAP PO SCH (19:57)
[2018-11-20] MEDS: PANTOPRAZOLE 40 MG (PROTONIX) TAB PO SCH (19:57)
[2018-11-20] MEDS: MONTELUKAST 10 MG (SINGULAIR) TAB PO SCH (19:57)
[2018-11-20] MEDS: CHOLESTYRAMINE 4 GM (QUESTRAN LITE, PREVALITE) PKT PO SCH (21:42)
[2018-11-20 23:24] VITALS: BP 139/70
[2018-11-21] MEDS: PIPERACILLIN/TAZO 4.5 GM/NS 100 ML IV SCH ×6 (05:23→20:56)
[2018-11-21 05:29] LABS: BASOPHILS % (AUTO) 1 % (0-10); EOSINOPHILS # (AUTO) 0.2 10^3/uL (0.0-0.3); EOSINOPHILS % (AUTO) 4 % (0-10); HEMATOCRIT 35 % (40-54); HEMOGLOBIN 11.9 G/DL (13.3-17.7); LYMPHOCYTES # (AUTO) 1.5 X 10^3 (1.0-4.0); LYMPHOCYTES % (AUTO) 36 % (12-44); MEAN CORPUSCULAR HEMOGLOBIN 33 PG (25-34); MEAN CORPUSCULAR HGB CONC 34 G/DL (32-36); MEAN CORPUSCULAR VOLUME 98 FL (80-99); MEAN PLATELET VOLUME 10.5 FL (7.4-10.4); MONOCYTES # (AUTO) 0.7 X 10^3 (0.0-1.0); MONOCYTES % (AUTO) 16 % (0-12); NEUTROPHILS # (AUTO) 1.7 X 10^3 (1.8-7.8); NEUTROPHILS % (AUTO) 43 % (42-75); PLATELET COUNT 99 10^3/uL (130-400); RED CELL DISTRIBUTION WIDTH 13.7 % (10.0-14.5)
[2018-11-21] MEDS: LACTOBACILLUS ACIDOPHILUS (PROBIOTIC) CAPSULE PO SCH ×3 (05:30→17:17)
[2018-11-21] MEDS: FOLIC ACID 1 MG TAB PO SCH (05:30)
[2018-11-21 06:00] LABS: BUN/CREATININE RATIO 9; CALCIUM 8.3 MG/DL (8.5-10.1); CARBON DIOXIDE 25 MMOL/L (21-32); CHLORIDE 111 MMOL/L (98-107); CREATININE SERUM 0.79 MG/DL (0.60-1.30); GFR ESTIMATED > 60; GLUCOSE 104 MG/DL (70-105); MAGNESIUM 1.4 MG/DL (1.8-2.4); PHOSPHORUS 2.2 MG/DL (2.3-4.7); SODIUM 143 MMOL/L (135-145)
[2018-11-21] MEDS: RT-ALBUTEROL/IPRATROPIUM 3 ML (DUONEB) VIAL INH SCH ×2 (07:23→18:57)
[2018-11-21 08:00] VITALS: BP 126/85
[2018-11-21] MEDS: PROPRANOLOL 20 MG (INDERAL) TABLET PO SCH ×2 (09:18→20:55)
[2018-11-21] MEDS: SIMvastatin 10 MG (ZOCOR) TAB PO SCH (09:18)
[2018-11-21] MEDS: KCL 20 MEQ TAB (K-DUR) PO SCH ×2 (09:18→20:54)
[2018-11-21] MEDS: PARoxetine 20 MG (PAXIL) TAB PO SCH (09:18)
--- NOTE | 2018-11-21 10:33 | Progress Note-Cardiology ---
Cardiology SOAP Progress Note Subjective: Sitting up in bed. States diarrhea has improved. Objective: I&O/Vital Signs 11/21/18 11/21/18 11/21/18 11/21/18 07:23 08:00 08:00 15:27 Temp 97.6 98.3 Pulse 71 71 Resp 20 20 B/P (MAP) 126/85 (99) 134/63 (86) Pulse Ox 94 96 97 O2 Delivery Room Air Nasal Cannula Nasal Cannula Room Air O2 Flow Rate 2.00 2.00 11/21/18 00:00 Intake Total 1420 ml Output Total 950 ml Balance 470 ml Weight (Pounds): 254 Weight (Ounces): 0.0 Weight (Calculated Kilograms): 115.177922 Constitutional: AAO x 3, well-developed, well-nourished Respiratory: No accessory muscle use; lungs clear to percussion, lungs clear to auscultation Cardiovascular: regular rate-rhythm, S1 and S2, systolic murmur (soft WENDY at card base) Gastrointestional: No tender; soft; No guarding, No rebound; audible bowel sounds Extremities: No clubbing, No cyanosis, No significant edema Neurologic/Psychiatric: oriented x 3, grossly intact, power is 5/5 both on sides Skin: No rash on exposed areas, No ulcerations on exposed areas Results/Procedures: Labs Laboratory Tests 11/21/18 05:24: White Blood Count 4.0L, Red Blood Count 3.62L, Hemoglobin 11.9L, Hematocrit 35L , Mean Corpuscular Volume 98, Mean Corpuscular Hemoglobin 33, Mean Corpuscular Hemoglobin Concent 34, Red Cell Distribution Width 13.7, Platelet Count 99L, Mean Platelet Volume 10.5H, Neutrophils (%) (Auto) 43, Lymphocytes (%) (Auto) 36 , Monocytes (%) (Auto) 16H, Eosinophils (%) (Auto) 4, Basophils (%) (Auto) 1, Neutrophils # (Auto) 1.7L, Lymphocytes # (Auto) 1.5, Monocytes # (Auto) 0.7, Eosinophils # (Auto) 0.2, Basophils # (Auto) 0.0, Sodium Level 143, Potassium Level 4.0, Chloride Level 111H, Carbon Dioxide Level 25, Anion Gap 7, Blood Urea Nitrogen 7, Creatinine 0.79, Estimat Glomerular Filtration Rate > 60, BUN/ Creatinine Ratio 9, Glucose Level 104, Calcium Level 8.3L, Phosphorus Level 2.2L , Magnesium Level 1.4L Microbiology 11/16/18 Blood Culture - Final, Complete No growth 11/17/18 C. difficile GDH Antigen & Toxins - Final, Complete 11/16/18 MRSA Screen - Final, Complete MRSA not isolated 11/16/18 Urine Culture - Final, Complete NO GROWTH Laboratory Tests 11/20/18 02:50 11/21/18 05:24 A/P: Assessment: PAF with RVR, likely due to electrolyte abnormalities and acute kidney injury ; CT resolved but elec abn persistent Flare of Crohn's disease that is chronically treated with infliximab and prednisone Suspected stress-related adrenal insufficiency Thrombocytopenia of unclear etiology, slowly improing Echo on 11/17/18: LVEF 60-65%, PASP 30-35 mmHg Plan: * Replace Mag * Holding off on anticoag due to thrombocytopenia. When able, stroke prophylaxis with ASA, given CHADS-VASc 1 * Monitor labs Physician Assessment Physician Assessment No cp or palp or syncope or shortness of breath Diarrhea improved Lungs: clear Cor: reg Ext: no c/c/e A&R * As documented in our note above that I updated (italics) and as noted below * Start low dose ASA if allowed by the Med Svce * Replenish lytes * Outpt card f/u advised EVON JACKMAN MAIL DELIVERER Nov 21, 2018 10:33 ALEX BAHENA MD [facility] CCDS Nov 21, 2018 17:15
[2018-11-21] MEDS: CHOLESTYRAMINE 4 GM (QUESTRAN LITE, PREVALITE) PKT PO SCH ×2 (10:49→21:03)
[2018-11-21] MEDS: MAGNESIUM 1 GM/100 ML IVPB 100 ML IV SCH (11:15)
--- NOTE | 2018-11-21 12:04 | Progress Note-Hospitalist ---
Progress Note Progress Notes/Assess & Plan Date Seen 11/21/18 Time Seen by Provider: 12:01 Assessment & Plan The patient reports that his diarrhea stopped abruptly last evening and he was able to sleep through the night without a stool. He reports that he is feeling much better and indeed he looks well. He continues to receive magnesium supplement IV. After discussion we will plan to discharge him tomorrow assuming continued improvement or at least stable performance. Physical exam: He is alert and lively. His family is in the room. Lungs are clear to auscultation. CV is regular. Abdomen is obese. Extremities show no pedal edema. Impression: Long history of Crohn's disease. 2.short bowel syndrome both small and large. 3.diarrhea improved. 4.hypomagnesemia. Plan: Complete magnesium KARTHIK CLARKE MD Nov 21, 2018 12:04
[2018-11-21 15:27] VITALS: BP 134/63
[2018-11-21 20:51] VITALS: BP 151/80
[2018-11-21] MEDS: MONTELUKAST 10 MG (SINGULAIR) TAB PO SCH (20:53)
[2018-11-21] MEDS: TAMSULOSIN 0.4 MG (FLOMAX) CAP PO SCH (20:53)
[2018-11-21] MEDS: PANTOPRAZOLE 40 MG (PROTONIX) TAB PO SCH (20:53)
[2018-11-21 23:38] VITALS: BP 129/74
[2018-11-22] MEDS: PIPERACILLIN/TAZO 4.5 GM/NS 100 ML IV SCH ×2 (04:15)
[2018-11-22 04:27] LABS: BASOPHILS # (AUTO) 0.1 10^3/uL (0.0-0.1); BASOPHILS % (AUTO) 1 % (0-10); EOSINOPHILS # (AUTO) 0.2 10^3/uL (0.0-0.3); EOSINOPHILS % (AUTO) 4 % (0-10); HEMATOCRIT 38 % (40-54); HEMOGLOBIN 12.3 G/DL (13.3-17.7); LYMPHOCYTES # (AUTO) 2.1 X 10^3 (1.0-4.0); LYMPHOCYTES % (AUTO) 37 % (12-44); MEAN CORPUSCULAR HEMOGLOBIN 32 PG (25-34); MEAN CORPUSCULAR HGB CONC 33 G/DL (32-36); MEAN CORPUSCULAR VOLUME 98 FL (80-99); MEAN PLATELET VOLUME 10.8 FL (7.4-10.4); MONOCYTES # (AUTO) 0.7 X 10^3 (0.0-1.0); MONOCYTES % (AUTO) 12 % (0-12); NEUTROPHILS # (AUTO) 2.7 X 10^3 (1.8-7.8); NEUTROPHILS % (AUTO) 47 % (42-75); PLATELET COUNT 131 10^3/uL (130-400); RED CELL DISTRIBUTION WIDTH 13.9 % (10.0-14.5); WHITE BLOOD COUNT 5.8 10^3/uL (4.3-11.0)
[2018-11-22 04:55] LABS: BUN/CREATININE RATIO 11; CALCIUM 8.4 MG/DL (8.5-10.1); CARBON DIOXIDE 26 MMOL/L (21-32); CHLORIDE 109 MMOL/L (98-107); GFR ESTIMATED > 60; GLUCOSE 85 MG/DL (70-105); MAGNESIUM 1.6 MG/DL (1.8-2.4); PHOSPHORUS 2.7 MG/DL (2.3-4.7); POTASSIUM 4.3 MMOL/L (3.6-5.0); SODIUM 141 MMOL/L (135-145)
[2018-11-22] MEDS: LACTOBACILLUS ACIDOPHILUS (PROBIOTIC) CAPSULE PO SCH ×2 (06:25→12:27)
[2018-11-22] MEDS: FOLIC ACID 1 MG TAB PO SCH (06:25)
[2018-11-22] MEDS: RT-ALBUTEROL/IPRATROPIUM 3 ML (DUONEB) VIAL INH SCH (06:50)
[2018-11-22 07:04] VITALS: BP 129/74
[2018-11-22 08:00] VITALS: BP 117/77
[2018-11-22] MEDS: SIMvastatin 10 MG (ZOCOR) TAB PO SCH (09:26)
[2018-11-22] MEDS: KCL 20 MEQ TAB (K-DUR) PO SCH (09:26)
[2018-11-22] MEDS: PROPRANOLOL 20 MG (INDERAL) TABLET PO SCH (09:26)
[2018-11-22] MEDS: PARoxetine 20 MG (PAXIL) TAB PO SCH (09:33)
--- NOTE | 2018-11-22 09:36 | Progress Note-Cardiology ---
Cardiology SOAP Progress Note Subjective: Sitting up in bed eating morning meal States he feels great and is ready to go home. No c/o CP, palpitations or dyspnea. No c/o syncope or near syncope. Objective: I&O/Vital Signs 11/21/18 11/22/18 11/22/18 11/22/18 23:38 06:50 07:04 08:00 Temp 98.7 97.9 Pulse 73 71 79 Resp 16 20 B/P (MAP) 129/74 (92) 117/77 (90) Pulse Ox 97 95 95 95 O2 Delivery Room Air Room Air Room Air FiO2 21 11/22/18 08:33 O2 Delivery Nasal Cannula O2 Flow Rate 2.00 11/22/18 00:00 Intake Total 2700 ml Output Total 1750 ml Balance 950 ml Weight (Pounds): 254 Weight (Ounces): 0.0 Weight (Calculated Kilograms): 115.126048 Constitutional: AAO x 3, well-developed, well-nourished Respiratory: No accessory muscle use; lungs clear to percussion, lungs clear to auscultation Cardiovascular: regular rate-rhythm, S1 and S2, systolic murmur (soft WENYD at card base) Gastrointestional: No tender; soft; No guarding, No rebound; audible bowel sounds Extremities: No clubbing, No cyanosis, No significant edema Neurologic/Psychiatric: oriented x 3, grossly intact, power is 5/5 both on sides Skin: No rash on exposed areas, No ulcerations on exposed areas Results/Procedures: Labs Laboratory Tests 11/22/18 04:15: White Blood Count 5.8, Red Blood Count 3.83L, Hemoglobin 12.3L, Hematocrit 38L, Mean Corpuscular Volume 98, Mean Corpuscular Hemoglobin 32, Mean Corpuscular Hemoglobin Concent 33, Red Cell Distribution Width 13.9, Platelet Count 131, Mean Platelet Volume 10.8H, Neutrophils (%) (Auto) 47, Lymphocytes (%) (Auto) 37 , Monocytes (%) (Auto) 12, Eosinophils (%) (Auto) 4, Basophils (%) (Auto) 1, Neutrophils # (Auto) 2.7, Lymphocytes # (Auto) 2.1, Monocytes # (Auto) 0.7, Eosinophils # (Auto) 0.2, Basophils # (Auto) 0.1, Sodium Level 141, Potassium Level 4.3, Chloride Level 109H, Carbon Dioxide Level 26, Anion Gap 6, Blood Urea Nitrogen 9, Creatinine 0.80, Estimat Glomerular Filtration Rate > 60, BUN/ Creatinine Ratio 11, Glucose Level 85, Calcium Level 8.4L, Phosphorus Level 2.7 , Magnesium Level 1.6L Microbiology 11/16/18 Blood Culture - Final, Complete No growth 11/17/18 C. difficile GDH Antigen & Toxins - Final, Complete 11/16/18 MRSA Screen - Final, Complete MRSA not isolated 11/16/18 Urine Culture - Final, Complete NO GROWTH A/P: Assessment: PAF with RVR, likely due to electrolyte abnormalities and acute kidney injury ; CT resolved but elec abn persistent Flare of Crohn's disease that is chronically treated with infliximab and prednisone Suspected stress-related adrenal insufficiency Thrombocytopenia of unclear etiology, slowly improing Echo on 11/17/18: LVEF 60-65%, PASP 30-35 mmHg Plan: * Replace Mag * Stroke prophylaxis with ASA, given CHADS-VASc 1 * Monitor labs * OK to discharge home from cardiac stand point Physician Assessment Physician Assessment Please also to refer to my separate note on [place] of the same date EVON JACKMAN OUTSIDE COLLECTOR Nov 22, 2018 09:36 ALEX BAHENA MD FACP FAC CCDS Nov 22, 2018 11:03
--- NOTE | 2018-11-22 09:52 | Progress Note-Cardiology ---
Cardiology SOAP Progress Note Subjective: No cp or palp or syncope Diarrhea improved Objective: I&O/Vital Signs 11/21/18 11/22/18 11/22/18 11/22/18 23:38 06:50 07:04 08:33 Temp 98.7 Pulse 73 71 Resp 16 B/P (MAP) 129/74 (92) Pulse Ox 97 95 95 O2 Delivery Room Air Room Air Nasal Cannula O2 Flow Rate 2.00 FiO2 21 11/22/18 00:00 Intake Total 2700 ml Output Total 1750 ml Balance 950 ml Weight (Pounds): 254 Weight (Ounces): 0.0 Weight (Calculated Kilograms): 115.222444 Constitutional: AAO x 3, well-developed, well-nourished Respiratory: No accessory muscle use; lungs clear to percussion, lungs clear to auscultation Cardiovascular: regular rate-rhythm, S1 and S2, systolic murmur (soft WENDY at card base) Gastrointestional: No tender; soft; No guarding, No rebound; audible bowel sounds Extremities: No clubbing, No cyanosis, No significant edema Neurologic/Psychiatric: oriented x 3, grossly intact, power is 5/5 both on sides Skin: No rash on exposed areas, No ulcerations on exposed areas Results/Procedures: Labs Laboratory Tests 11/22/18 04:15: White Blood Count 5.8, Red Blood Count 3.83L, Hemoglobin 12.3L, Hematocrit 38L, Mean Corpuscular Volume 98, Mean Corpuscular Hemoglobin 32, Mean Corpuscular Hemoglobin Concent 33, Red Cell Distribution Width 13.9, Platelet Count 131, Mean Platelet Volume 10.8H, Neutrophils (%) (Auto) 47, Lymphocytes (%) (Auto) 37 , Monocytes (%) (Auto) 12, Eosinophils (%) (Auto) 4, Basophils (%) (Auto) 1, Neutrophils # (Auto) 2.7, Lymphocytes # (Auto) 2.1, Monocytes # (Auto) 0.7, Eosinophils # (Auto) 0.2, Basophils # (Auto) 0.1, Sodium Level 141, Potassium Level 4.3, Chloride Level 109H, Carbon Dioxide Level 26, Anion Gap 6, Blood Urea Nitrogen 9, Creatinine 0.80, Estimat Glomerular Filtration Rate > 60, BUN/ Creatinine Ratio 11, Glucose Level 85, Calcium Level 8.4L, Phosphorus Level 2.7 , Magnesium Level 1.6L Microbiology 11/16/18 Blood Culture - Final, Complete No growth 11/17/18 C. difficile GDH Antigen & Toxins - Final, Complete 11/16/18 MRSA Screen - Final, Complete MRSA not isolated 11/16/18 Urine Culture - Final, Complete NO GROWTH Laboratory Tests 11/21/18 05:24 11/22/18 04:15 A/P: Assessment: PAF with RVR, likely due to electrolyte abnormalities and acute kidney injury ; CT resolved but elec abn persistent Flare of Crohn's disease that is chronically treated with infliximab and prednisone Suspected stress-related adrenal insufficiency Thrombocytopenia of unclear etiology, improved/resolved Echo on 11/17/18: LVEF 60-65%, PASP 30-35 mmHg Plan: * Replace Mag * Stroke prophylaxis with ASA, given CHADS-VASc 1 * Monitor labs * OK to discharge home from cardiac stand point ALEX BAHENA MD FACP FAC CCDS Nov 22, 2018 09:52
[2018-11-22] MEDS: MAGNESIUM 1 GM/100 ML IVPB 100 ML IV SCH ×2 (10:13→11:30)
[2018-11-22] MEDS: CHOLESTYRAMINE 4 GM (QUESTRAN LITE, PREVALITE) PKT PO SCH (10:14)
[2018-11-22] MEDS ORDERED: ASPIRIN 81 MG CHEW (CHILDREN'S ASA) PO SCH (10:53)
--- NOTE | 2018-11-22 11:41 | Progress Note-Hospitalist ---
Progress Note Progress Notes/Assess & Plan Date Seen 11/22/18 Time Seen by Provider: 11:38 Assessment & Plan The patient reports that he is feeling much better by the day. He is pleased by the effect that Questran his head on limiting his bowel movements. We also discussed the issues of magnesium and calcium. It is not clear with his short bowel quite his capacity for absorption is. ALEX Pardo has listed his medications relative to the heart. He will get a new prescription for Questran and oral magnesium. Physical exam he is up and about in the room. He looks great. Lungs are clear to auscultation. CV is regular. Abdomen is nontender. Bowel sounds are noted. Impression: 1.severe dehydration. 2.long history of Crohn's disease with apparent reaction to the bio similar substitute for Remicade. 3.extensive resection of small bowel and large bowel previously. Plan: See discharge sequence for medications and routines. KARTHIK CLARKE MD Nov 22, 2018 11:41
[2018-11-22] MEDS ORDERED: MAGN400T6 PO (11:45)
[2018-11-22] MEDS ORDERED: CHOL210P2 PO (11:47)
--- NOTE | 2018-11-22 11:51 | Discharge Inst-Simple/Standard ---
Discharge Inst-Standard Discharge Medications New, Converted or Re-Newed RX: Transmitted to Pharmacy Patient Instructions/Follow Up Plan of Care/Instructions/FU: Resume medications as listed on the discharge sequence. Resume usual activities. You may adjust dosage of Questran to achieve desired bowel consistency. Consider scheduling an appointment with your GI specialist in the near future. Activity as Tolerated: Yes Discharge Diet: No Restrictions KARTHIK CLARKE MD Nov 22, 2018 11:51
[2018-11-22] MEDS ORDERED: ASPI-586 PO (11:52)
[2018-11-22 13:24] VITALS: BP 117/77
--- NOTE | 2018-11-22 13:26 | NUR ---
DONOVAN SANCHEZ demonstrates understanding of discharge instructions and accurately returns instructions upon questioning. Copy of Post-Discharge Instructions and Medication Discharge Instructions given to patient. DONOVAN SANCHEZ is/is not able to manage continuing needs after discharge. Patients belongings returned to patient. Skin dry and intact; no breakdown noted. Patient [facility] from [facility] on 11/22/18 at 1326. DONOVAN SANCHEZ left floor via ambulatory, accompanied by staff and .
== END 2018-11-22 13:26 | disposition home or self-care (01) | DRG 871 ==
LOC: EDUNIT# 11:53 → ER 11:57 → ICU 16:30 → 4TH 11-19 01:30
PROVIDERS: ADMIT Family Medicine; ATTEND Family Medicine
PROC: 5A2204Z Restoration of Cardiac Rhythm, Single (ICD-10-PCS; principal; 2018-11-17)
DX: A41.1 Sepsis due to other specified staphylococcus (principal); R65.21 Severe sepsis with septic shock; N30.00 Acute cystitis without hematuria; K50.912 Crohn's disease, unspecified, with intestinal obstruction; E24.9 Cushing's syndrome, unspecified; N17.0 Acute kidney failure with tubular necrosis; K91.2 Postsurgical malabsorption, not elsewhere classified; I48.0 Paroxysmal atrial fibrillation; E87.1 Hypo-osmolality and hyponatremia; I10 Essential (primary) hypertension; E87.6 Hypokalemia; E83.42 Hypomagnesemia; D69.6 Thrombocytopenia, unspecified; N20.0 Calculus of kidney; E86.9 Volume depletion, unspecified
CPT/HCPCS: 36415; 36556; 51702; 71045; 74176; 80048; 80053; 80202; 81000; 82550; 83605; 83735; 83880; 84100; 84484; 85007; 85025; 85027; 85610; 85730; 87040; 87081; 87088; 87324; 87449; 93005; 93306; 94640; 94664; 94760; 96361; 96365; 96366; 96367; 96368; 96375

== ENCOUNTER 2018-12-05 08:39 | Emergency (ER) | payer MEDICARE, OTHER ==
[~2018-12-05] VITALS: Ht 182.9 cm; Wt 108.9 kg
[~2018-12-05 08:39] MED LIST changes: +AMOX1TAB12 PO; +ASPI-586 PO; +CHOL210P2 PO; +CNC1KV IM; +ERGO50006 PO; +FISH1CAP15 PO; +INFL100V2 IV; +L.AC1CAP6 PO; +MAGN400T6 PO; +MONT10TA24 PO; +MULT-178 PO; +NADO20TA10 PO; +NADO40TA PO; +PANT40TA3 PO; +PARO20TA5 PO; +PRAS50CA2 PO; +PRD20T PO; +TADA5TAB3 PO; +TAMS0.4C2 PO
--- NOTE | 2018-12-05 09:05 | ED General ---
General Chief Complaint: Chest pain, abdominal pain, headache, diarrhea Stated Complaint: CHEST PAIN; ABD PAIN Source of Information: Patient Exam Limitations: No Limitations History of Present Illness Date Seen by Provider: Dec 05, 2018 Time Seen by Provider: 08:50 63-year-old man with recent hospitalization for sepsis of unclear source on Remicade infusions for Crohn's disease presents with chest and abdominal pain started around 7 AM this morning. The pain started when he was at rest, when asked where the pain is he points to the epigastric region and says this is where the chest pain is (this pain is nonradiating, burning, moderate with no precipitating or relieving factors), sharp nonradiating moderate abdominal pain is in the suprapubic and right lower quadrant regions. He has history of small bowel resection, appendectomy. He recently completed a 6 week course of steroids by his GI doctor at [facility] in [place]. He does have some associated diarrhea which is common place for him, also notes mucus with his stools also common for him. Bloody bowel movements no dark tarry stools. In addition he notes a dull nonradiating frontal headache which is not the worst headache of his life. Allergies and Home Medications Allergies Coded Allergies: morphine (Unverified Allergy, Severe, HEART STOPPED, 11/17/18) hydromorphone HCl (Unverified Allergy, Unknown, HIVES, 11/14/18) oxycodone (Unverified Allergy, Unknown, HIVES, 11/14/18) infliximab-dyyb (Unverified Adverse Reaction, Severe, ATRIAL FIB, 12/05/18) PT WENT INTO A FIB WHILE RECEIVING INFUSION meperidine HCl (Unverified Adverse Reaction, Mild, N/V, 11/17/18) Home Medications Aspirin 81 Mg Tablet., 81 MG PO DAILY Prescribed by: KARTHIK CLARKE on 11/22/18 1152 Azathioprine 50 Mg Tablet, 100 MG PO HS, (Reported) TAKES 2 (50MG) TABLETS Azathioprine 50 Mg Tablet, 150 MG PO DAILY, (Reported) TAKES 3 (50MG) TABLETS Cholestyramine/Aspartame 210 Gm Powder, 210 GM PO twice a day Prescribed by: KARTHIK CLARKE on 11/22/18 1147 Cyanocobalamin 1,000 Mcg/Ml Inj, 1,000 MCG IM MONTHLY, (Reported) Diphenoxylate HCl/Atropine 1 Each Tablet, 1 TAB PO QID PRN for DIARRHEA, ( Reported) Ergocalciferol (Vitamin D2) 50,000 Unit Capsule, 50,000 UNIT PO Mo, (Reported) UNKNOWN LAST FILL DATE Fish Oil/Dha/Epa 1 Each Capsule, 1,200 MG PO DAILY, (Reported) Folic Acid 0.4 Mg Tablet, 0.4 MG PO DAILY, (Reported) Hydrocodone/Acetaminophen 1 Each Tablet, 1 TAB PO Q6H PRN for PAIN-MODERATE TO SEVERE Prescribed by: LAURA ANTOINE on 12/05/18 1147 L.acidoph & Paracasei,B.lactis 1 Each Capsule, 1 CAP PO DAILY, (Reported) Lisinopril/Hydrochlorothiazide 1 Each Tablet, 1 TAB PO DAILY, (Reported) LAST FILLED #90 01-30-18 Magnesium Oxide 400 Mg Tablet, 400 MG PO BID Prescribed by: KARTHIK CLARKE on 11/22/18 1145 Montelukast Sodium 10 Mg Tablet, 10 MG PO HS, (Reported) Multivitamin 1 Each Tablet, 1 TAB PO DAILY, (Reported) Nadolol 40 Mg Tablet, 40 MG PO BID, (Reported) LAST FILLED #270 2017 Pantoprazole Sodium 40 Mg Tablet.dr, 40 MG PO HS, (Reported) Paroxetine HCl 20 Mg Tablet, 20 MG PO DAILY, (Reported) Potassium Citrate 10 Meq Tablet.er, 10 MEQ PO TID, (Reported) LAST FILLED #180 01-30-18 Prednisone 20 Mg Tab, 40 MG PO DAILY PRN for CHRON'S FLARE UP, (Reported) TAKES 2 (20MG) TABLETS Prednisone 20 Mg Tab, 10 MG PO DAILY Take 6 tabs daily for 5 days then 4 tabs daily for 5 days then 2 tabs daily for 5 days then 1 tab daily for 5 days then stop. Prescribed by: LAURA ANTOINE on 12/05/18 114 Simvastatin 10 Mg Tablet, 10 MG PO DAILY, (Reported) Tadalafil 5 Mg Tablet, 5 MG PO DAILY PRN for ED, (Reported) Tamsulosin HCl 0.4 Mg Cap.er.24h, 0.4 MG PO HS, (Reported) Tramadol HCl 50 Mg Tablet, 50 MG PO Q6H PRN for PAIN-MODERATE, (Reported) Patient Home Medication List Home Medication List Reviewed: Yes Review of Systems Review of Systems Constitutional: chills; No fever EENTM: No mouth pain, No nose pain Respiratory: No cough, No dyspnea on exertion, No orthopnea, No short of breath Cardiovascular: see HPI Gastrointestinal: see HPI Genitourinary: No decreased output, No discharge, No dysuria, No frequency Musculoskeletal: No joint pain, No muscle pain Past Ghesxmc-Ulnsrp-Hvhttx Hx Past Med/Social Hx: Reviewed Nursing Past Med/Soc Hx Patient Social History Recent Foreign Travel: No Contact w/Someone Who Travel: No Recent Hopitalizations: No Immunizations Up To Date PED Vaccines UTD: Yes Date of Pneumonia Vaccine: Aug 03, 2010 Date of Influenza Vaccine: Aug 11, 2018 Seasonal Allergies Seasonal Allergies: Yes Past Medical History Surgeries: Yes (PT ADMITTED FROM TESTICULAR SURGERY, HERNIA REPAIR, SMALL BOWEL RESECTION) Abdominal, Tonsillectomy, Transurethral Resection, Vasectomy Respiratory: No Cardiac: Yes Hypertension Neurological: No Reproductive Disorders: No Sexually Transmitted Disease: No Genitourinary: Yes Kidney Stones Gastrointestinal: Yes Crohns Disease Musculoskeletal: No Endocrine: Yes (C[place] DISEASE) Adrenal Disease HEENT: No 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 Heart Disease, Diabetes, Other Conditions/Hx Physical Exam Vital Signs Vital Signs - First Documented 12/05/18 08:40 Temp 98.4 Pulse 69 Resp 16 B/P (MAP) 102/65 (77) Pulse Ox 100 O2 Delivery Room Air Capillary Refill : Height, Weight, BMI Height: 6'0.00" Weight: 254lbs. 0.0oz. 115.135620oz; 33.8 BMI Method:Stated General Appearance: WD/WN, Mild Distress (Pain) HEENT: PERRL/EOMI, TMs Normal, Normal ENT Inspection Neck: Full Range of Motion, Supple Respiratory: Chest Non Tender, Lungs Clear, Normal Breath Sounds, No Accessory Muscle Use, No Respiratory Distress Cardiovascular: Regular Rate, Rhythm, No Edema, No Gallop, No JVD, No Murmur, Normal Peripheral Pulses Gastrointestinal: No Organomegaly, No Pulsatile Mass, Soft, Abnormal Bowel Sounds (decreased); No Distended, No Guarding, No Hernia, No Mass, No Rebound; Tenderness (epigastric, RLQ, suprapubic) Back: Normal Inspection, No CVA Tenderness Extremity: Normal Capillary Refill, No Calf Tenderness Neurologic/Psychiatric: Alert, Oriented x3, No Motor/Sensory Deficits, Normal Mood/Affect Skin: Normal Color, Warm/Dry Progress/Results/Core Measures Suspected Sepsis SIRS Temperature: Pulse: Respiratory Rate: Laboratory Tests 12/05/18 09:13: White Blood Count 6.6 Blood Pressure / Mean: Laboratory Tests 12/05/18 09:13: Creatinine 0.96, Platelet Count 179, Total Bilirubin 0.5 Results/Orders Lab Results Laboratory Tests Test 12/05/18 09:13 12/05/18 11:17 Range/Units White Blood Count 6.6 4.3-11.0 10^3/uL Red Blood Count 4.35 4.35-5.85 10^6/uL Hemoglobin 14.2 13.3-17.7 G/DL Hematocrit 43 40-54 % Mean Corpuscular Volume 100 H 80-99 FL Mean Corpuscular Hemoglobin 33 25-34 PG Mean Corpuscular Hemoglobin Concent 33 32-36 G/DL Red Cell Distribution Width 14.6 H 10.0-14.5 % Platelet Count 179 130-400 10^3/uL Mean Platelet Volume 10.8 H 7.4-10.4 FL Neutrophils (%) (Auto) 54 42-75 % Lymphocytes (%) (Auto) 24 12-44 % Monocytes (%) (Auto) 18 H 0-12 % Eosinophils (%) (Auto) 3 0-10 % Basophils (%) (Auto) 1 0-10 % Neutrophils # (Auto) 3.6 1.8-7.8 X 10^3 Lymphocytes # (Auto) 1.6 1.0-4.0 X 10^3 Monocytes # (Auto) 1.2 H 0.0-1.0 X 10^3 Eosinophils # (Auto) 0.2 0.0-0.3 10^3/uL Basophils # (Auto) 0.1 0.0-0.1 10^3/uL Neutrophils % (Manual) 55 % Lymphocytes % (Manual) 17 % Monocytes % (Manual) 23 % Eosinophils % (Manual) 3 % Band Neutrophils 2 % Blood Morphology Comment NORMAL Sodium Level 134 L 135-145 MMOL/L Potassium Level 3.9 3.6-5.0 MMOL/L Chloride Level 95 L 98-107 MMOL/L Carbon Dioxide Level 19 L 21-32 MMOL/L Anion Gap 20 H 5-14 MMOL/L Blood Urea Nitrogen 10 7-18 MG/DL Creatinine 0.96 0.60-1.30 MG/DL Estimat Glomerular Filtration Rate > 60 BUN/Creatinine Ratio 10 Glucose Level 162 H 70-105 MG/DL Calcium Level 9.0 8.5-10.1 MG/DL Corrected Calcium 9.0 8.5-10.1 MG/DL Total Bilirubin 0.5 0.1-1.0 MG/DL Aspartate Amino Transf (AST/SGOT) 30 5-34 U/L Alanine Aminotransferase (ALT/SGPT) 22 0-55 U/L Alkaline Phosphatase 81 40-136 U/L Troponin T 7 <=15 NG/L Total Protein 7.3 6.4-8.2 GM/DL Albumin 4.0 3.2-4.5 GM/DL Lipase 53 8-78 U/L Urine Color YELLOW Urine Clarity CLEAR Urine pH 7 5-9 Urine Specific [place] <=1.005 1.016-1.022 Urine Protein NEGATIVE NEGATIVE Urine Glucose (UA) NEGATIVE NEGATIVE Urine Ketones NEGATIVE NEGATIVE Urine Nitrite NEGATIVE NEGATIVE Urine Bilirubin NEGATIVE NEGATIVE Urine Urobilinogen 0.2 NORMAL MG/DL Urine Leukocyte Esterase NEGATIVE NEGATIVE Urine RBC (Auto) TRACE-I NEGATIVE Urine RBC NONE /HPF Urine WBC NONE /HPF Urine Squamous Epithelial Cells RARE /HPF Urine Crystals NONE /LPF Urine Bacteria NEGATIVE /HPF Urine Casts NONE /LPF Urine Mucus NEGATIVE /LPF Urine Culture Indicated NO My Orders Orders - LAURA ANTOINE MD Comprehensive Metabolic Panel (12/05/18 09:05) Lipase (12/05/18 09:05) Ua Culture If Indicated (12/05/18 09:05) Saline Lock/Iv-Start (12/05/18 09:05) Cbc With Automated Diff (12/05/18 09:05) Ct Abdomen/Pelvis W (12/05/18 09:05) Ns Iv 1000 Ml (Sodium Chloride 0.9%) (12/05/18 09:15) Fentanyl Injection (Sublimaze Injection (12/05/18 09:15) Antacid Suspension (Mylanta Suspension (12/05/18 09:15) Famotidine Injection (Pepcid Injection) (12/05/18 09:15) Manual Differential (12/05/18 09:13) Ondansetron Injection (Zofran Injectio (12/05/18 10:15) Iopamidol 61% Injection (Isovue 300 61% (12/05/18 10:15) Sodium Chloride Flush (Catheter Flush Sy (12/05/18 10:15) Received Contrast (Contrast Received) (12/05/18 10:15) Ns (Ivpb) (Sodium Chloride 0.9% Ivpb Bag (12/05/18 10:15) Medications Given in ED Current Medications Medications Dose Ordered Sig/Rui Route Start Time Stop Time Status Last Admin Dose Admin Al Hydrox/Mg Hydrox/Simethicone 30 ml ONCE ONCE PO 12/05/18 09:15 12/05/18 09:16 DC 12/05/18 09:22 30 ML Famotidine 20 mg ONCE ONCE IVP 12/05/18 09:15 12/05/18 09:16 DC 12/05/18 09:23 20 MG Fentanyl Citrate 100 mcg Q1H PRN IVP 12/05/18 09:15 12/05/18 09:23 100 MCG Iopamidol 100 ml ONCE ONCE IV 12/05/18 10:15 12/05/18 10:25 DC 12/05/18 10:40 100 ML Ondansetron HCl 4 mg ONCE ONCE IVP 12/05/18 10:15 12/05/18 10:16 DC 12/05/18 10:15 4 MG Sodium Chloride 10 ml NEEDED PRN IV 12/05/18 10:15 12/05/18 10:40 10 ML Sodium Chloride 50 ml ONCE ONCE IV 12/05/18 10:15 12/05/18 10:25 DC 12/05/18 10:40 50 ML Vital Signs/I&O 12/05/18 08:40 Temp 98.4 Pulse 69 Resp 16 B/P (MAP) 102/65 (77) Pulse Ox 100 O2 Delivery Room Air Capillary Refill : Progress Note #1: Time: 11:25 Progress Note Pain has resolved, patient is feeling much better. Discussed results of testing , diagnosis, reason for close follow-up. 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 Strict return precautions were discussed. As he was recently on steroids I will not prescribe him any steroids at this time. Progress Note #2: Time: 11:40 Progress Note Patient states he is able to speak with his hr internship, Dr. Willard, who recommends restarting prednisone. History follow-up or his next Remicade injection on 12/25. ECG Initial ECG Impression Date: Dec 05, 2018 Initial ECG Impression Time: 08:50 Initial ECG Rate: 70 Initial ECG Rhythm: Normal Sinus Initial ECG Intervals: Normal Initial ECG Impression: Normal Initial ECG Comparisson: No Previous ECG Available Comment Normal sinus rhythm, 70 bpm, normal intervals no hypertrophy no STEMI Diagnostic Imaging Diagonstic Imaging: CT Plain Films/CT/US/NM/MRI: abdomen, pelvis Comments IMPRESSION: 1. Mild wall thickening and adjacent edema at the terminal ileum, may represent an ileitis or Crohn's exacerbation. This is just distal to the anastomosis. No fluid collection or free air is seen. 2. Stable simple-appearing bilateral renal cysts. Departure Impression Primary Impression: Crohn disease Additional Impression: UNSPECIFIED ABDOMINAL PAIN Disposition: 01 HOME, SELF-CARE Condition: Improved Admissions Decision to Admit/Date: Dec 05, 2018 Time/Decision to Admit Time: 11:48 Departure-Patient Inst. Referrals: MK WILLARD MD (PCP/Family) Primary Care Physician Patient Instructions: Crohn's Disease (DC) Scripts Hydrocodone/Acetaminophen ([place] 5-325 Tablet) 1 Each Tablet 1 TAB PO Q6H PRN for PAIN-MODERATE TO SEVERE MDD 10, #15 TAB 0 Refills Prov: LAURA ANTOINE MD 12/05/18 Prednisone (Prednisone) 20 Mg Tab 10 MG PO DAILY, #65 TAB 0 Refills Take 6 tabs daily for 5 days then 4 tabs daily for 5 days then 2 tabs daily for 5 days then 1 tab daily for 5 days then stop. Prov: LAURA ANTOINE MD 12/05/18 LAURA ANTOINE MD Dec 05, 2018 09:05
[2018-12-05] MEDS ORDERED: NS IV 1000 ML 1,000 ML IV SCH (09:15)
[2018-12-05] MEDS ORDERED: ANTACID SUSP 30 ML UDC (MYLANTA) PO ONE (09:15)
[2018-12-05] MEDS ORDERED: fentaNYL INJECTION 100 MCG/2 ML AMP IVP PRN (09:15)
[2018-12-05] MEDS ORDERED: FAMOTIDINE 20MG/2ML IV (PEPCID) IVP ONE (09:15)
[2018-12-05 09:25] LABS: BASOPHILS % (AUTO) 1 % (0-10); EOSINOPHILS % (AUTO) 3 % (0-10); HEMATOCRIT 43 % (40-54); HEMOGLOBIN 14.2 G/DL (13.3-17.7); LYMPHOCYTES % (AUTO) 24 % (12-44); MEAN CORPUSCULAR HEMOGLOBIN 33 PG (25-34); MEAN CORPUSCULAR HGB CONC 33 G/DL (32-36); MEAN CORPUSCULAR VOLUME 100 FL (80-99); MEAN PLATELET VOLUME 10.8 FL (7.4-10.4); MONOCYTES % (AUTO) 18 % (0-12); NEUTROPHILS # (AUTO) 3.6 X 10^3 (1.8-7.8); NEUTROPHILS % (AUTO) 54 % (42-75); PLATELET COUNT 179 10^3/uL (130-400); RED CELL DISTRIBUTION WIDTH 14.6 % (10.0-14.5); WHITE BLOOD COUNT 6.6 10^3/uL (4.3-11.0)
[2018-12-05 09:26] LABS: BASOPHILS # (AUTO) 0.1 10^3/uL (0.0-0.1); EOSINOPHILS # (AUTO) 0.2 10^3/uL (0.0-0.3); LYMPHOCYTES # (AUTO) 1.6 X 10^3 (1.0-4.0); MONOCYTES # (AUTO) 1.2 X 10^3 (0.0-1.0)
[2018-12-05 09:43] LABS: ALANINE AMINOTRANSFERASE 22 U/L (0-55); ALKALINE PHOSPHATASE 81 U/L (40-136); BILIRUBIN,TOTAL 0.5 MG/DL (0.1-1.0); BUN/CREATININE RATIO 10; CARBON DIOXIDE 19 MMOL/L (21-32); CHLORIDE 95 MMOL/L (98-107); CREATININE SERUM 0.96 MG/DL (0.60-1.30); GFR ESTIMATED > 60; GLUCOSE 162 MG/DL (70-105); POTASSIUM 3.9 MMOL/L (3.6-5.0); SODIUM 134 MMOL/L (135-145); TOTAL PROTEIN 7.3 GM/DL (6.4-8.2)
[2018-12-05 09:57] LABS: BAND NEUTROPHILS 2 %; EOSINOPHILS % (MANUAL) 3 %; LYMPHOCYTES % (MANUAL) 17 %; MONOCYTES % (MANUAL) 23 %; NEUTROPHILS % (MANUAL) 55 %; RBC MORPH NORMAL
[2018-12-05] MEDS ORDERED: CATHETER FLUSH 10 ML SYR IV PRN (10:15)
[2018-12-05] MEDS ORDERED: NS 50 ML (IVPB) BAG IV ONE (10:15)
[2018-12-05] MEDS ORDERED: ONDANSETRON 4 MG/2 ML (SDV) Z0FRAN IVP ONE (10:15)
[2018-12-05] MEDS ORDERED: RECEIVED CONTRAST 20 ML VIAL IV SCH (10:15)
[2018-12-05] MEDS ORDERED: IOPAMIDOL 61% 100 ML (ISOVUE 300) VIAL IV ONE (10:15)
[2018-12-05 10:18] LABS: LIPASE 53 U/L (8-78)
--- NOTE | 2018-12-05 11:06 | Diagnostic Imaging Report ---
PROCEDURE: CT abdomen and pelvis with contrast. TECHNIQUE: Multiple contiguous axial images were obtained through the abdomen and pelvis after administration of intravenous contrast. INDICATION: Abdominal and chest pain. History of Crohn's disease. COMPARISON: 11/16/2018. FINDINGS: The lung bases are clear. The heart is normal in size. There is no pericardial effusion. The liver demonstrates no focal lesions. The spleen is unremarkable. The pancreas and adrenal glands appear normal. Cholecystectomy clips are noted. Mild prominence of the common bile duct is likely due to post cholecystectomy changes. There is no hydronephrosis. There are simple-appearing renal cysts bilaterally, the largest on the left measuring 4.5 cm in diameter. This is stable in appearance compared to the prior study. The bowel loops are not significantly distended. There is wall thickening and mild edema at the terminal ileum near the anastomosis. There is diverticulosis of the distal colon without diverticulitis seen. No free fluid or free air is seen. No filling defects are seen in the bladder. No pericolic fluid collections are seen. There appears to be prior repair of a small ventral hernia which appears unchanged. No acute osseous abnormalities are seen. IMPRESSION: 1. Mild wall thickening and adjacent edema at the terminal ileum, may represent an ileitis or Crohn's exacerbation. This is just distal to the anastomosis. No fluid collection or free air is seen. 2. Stable simple-appearing bilateral renal cysts. Dictated by: Dictated on workstation # [id number]
[2018-12-05 11:42] LABS: CLARITY,URINE CLEAR; COLOR,URINE YELLOW
[2018-12-05 11:43] LABS: BACTERIA,URINE NEGATIVE /HPF; BILIRUBIN,URINE NEGATIVE (NEGATIVE); GLUCOSE, URINE (UA) NEGATIVE (NEGATIVE); KETONES,URINE NEGATIVE (NEGATIVE); LEUKOCYTE ESTERASE ,URINE NEGATIVE (NEGATIVE); NITRITE,URINE NEGATIVE (NEGATIVE); PH,URINE 7 (5-9); PROTEIN,URINE NEGATIVE (NEGATIVE); SQUAMOUS EPITHELIAL CELL,UR RARE /HPF; UROBILINOGEN,URINE 0.2 MG/DL (NORMAL)
[2018-12-05] MEDS ORDERED: HYDR-4226 PO (11:47)
[2018-12-05] MEDS ORDERED: PRD20T PO (11:47)
[2018-12-05 11:54] VITALS: BP 102/65
== END 2018-12-05 11:54 | disposition home or self-care (01) ==
LOC: EDUNIT# 08:39 → ER FS 08:41
DX: K50.90 Crohn's disease, unspecified, without complications (principal); R07.89 Other chest pain; I10 Essential (primary) hypertension; Z85.828 Personal history of other malignant neoplasm of skin; Z87.19 Personal history of other diseases of the digestive system; Z87.442 Personal history of urinary calculi; Z88.5 Allergy status to narcotic agent; Z88.8 Allergy status to other drugs, medicaments and biological substances; Z79.82 Long term (current) use of aspirin; Z79.52 Long term (current) use of systemic steroids; Z98.890 Other specified postprocedural states; Z90.89 Acquired absence of other organs; Z90.49 Acquired absence of other specified parts of digestive tract; Z98.52 Vasectomy status
CPT/HCPCS: 36415; 74177; 80053; 81000; 83690; 84484; 85007; 85027

== ENCOUNTER → 2018-12-20 | Outpatient (CLI) | payer MEDICARE, OTHER ==
[~2018-12-20] MED LIST changes: +HYDR-4226 PO
[2018-12-20 12:11] LABS: CARBON DIOXIDE 22 MMOL/L (21-32); CHLORIDE 98 MMOL/L (98-107); POTASSIUM 4.4 MMOL/L (3.6-5.0); SODIUM 135 MMOL/L (135-145)
[2018-12-20 12:12] LABS: BUN/CREATININE RATIO 22; CREATININE SERUM 0.87 MG/DL (0.60-1.30); GFR ESTIMATED > 60; GLUCOSE 184 MG/DL (70-105); MAGNESIUM 1.9 MG/DL (1.8-2.4)
== END ==
LOC: LAB FS 11:18
PROVIDERS: ATTEND Pediatrics
DX: K50.00 Crohn's disease of small intestine without complications (principal)
CPT/HCPCS: 36415; 80048; 83735

== ENCOUNTER → 2018-12-25 | Outpatient (CLI) | payer MEDICARE, OTHER ==
[~2018-12-25] VITALS: Ht 182.9 cm; Wt 108.9 kg
[~2018-12-25] MED LIST changes: +ACETAMINOPHEN 325 MG TABLET PO SCH; +NS IV 1000 ML 1,000 ML IV SCH; +diphenhydrAMINE 50 MG/ML INJ (BENADRYL) IVP SCH; +inFLIXimab FOR IV 600 MG in NORMAL SALINE 250 ML IV SCH
[2018-12-25 10:52] VITALS: BP 119/76
== END ==
LOC: SDC 09:39
PROVIDERS: ATTEND Pediatrics
DX: K50.90 Crohn's disease, unspecified, without complications (principal)
CPT/HCPCS: 96361; 96365; 96366

== ENCOUNTER → 2019-01-02 | Outpatient (CLI) | payer MEDICARE, OTHER ==
[~2019-01-02] MED LIST changes: -ACETAMINOPHEN 325 MG TABLET PO SCH; +CATHETER FLUSH 10 ML SYR IV PRN; -NS IV 1000 ML 1,000 ML IV SCH; +REGADENOSON 0.4 MG/5 ML SYR (LEXISCAN) IV ONE; -diphenhydrAMINE 50 MG/ML INJ (BENADRYL) IVP SCH; -inFLIXimab FOR IV 600 MG in NORMAL SALINE 250 ML IV SCH
[2019-01-02 09:40] VITALS: BP 137/86
--- NOTE | 2019-01-04 15:19 | STRESS TEST ---
DATE OF SERVICE: 01/02/2019 RESTING AND POST REGADENOSON TECHNETIUM-99M TETROFOSMIN SPECT CT IMAGING ORDERING PHYSICIAN: Dr. Finley. PRIMARY PHYSICIAN: CLINICAL DIAGNOSES: Paroxysmal atrial fibrillation, shortness of breath. Baseline images were carried out after injection of 10.64 mCi technetium-99m Tetrofosmin. This was followed by 0.4 mg regadenoson and 28.9 mCi of technetium-99m Tetrofosmin for stress imaging. The electrocardiogram showed sinus rhythm at baseline. Isolated premature atrial contractions were seen. The electrocardiogram did not change. Review of images at rest and following stress does not indicate any significant perfusion defects consistent with significant myocardial ischemia or infarction. Gated images show normal global left ventricular systolic function and normal regional wall motion. Left ventricular ejection fraction is calculated to be 76%. Left ventricular end diastolic volume is 45 mL. TID is absent (0.88). CONCLUSIONS: 1. No evidence of any significant myocardial ischemia or infarction on this study. 2. Normal regional wall motion. 3. Normal global left ventricular systolic function with a calculated ejection fraction of 76%. Job ID: [id number] DocumentID: [id number] Dictated Date: 01/04/2019 14:47:08 Brake Operator Helper Date: 01/04/2019 15:18:56 Dictated By: ALEX FINLEY MD, MA, FACP, FACC,
== END ==
LOC: CARD 07:46
PROVIDERS: ATTEND Internal Medicine Cardiovascular Disease
DX: I48.0 Paroxysmal atrial fibrillation (principal); R06.02 Shortness of breath; G47.33 Obstructive sleep apnea (adult) (pediatric); E87.8 Other disorders of electrolyte and fluid balance, not elsewhere classified; K50.90 Crohn's disease, unspecified, without complications
CPT/HCPCS: 78452; 93017

== ENCOUNTER 2019-01-30 11:50 | Day surgery (SDC) | payer MEDICARE, OTHER ==
[~2019-01-30] VITALS: Ht 182.9 cm; Wt 118.4 kg
[2019-01-30] VITALS (10 sets, daily range): BP systolic 106–132; BP diastolic 67–82
[~2019-01-30 11:50] MED LIST changes: -CATHETER FLUSH 10 ML SYR IV PRN; -REGADENOSON 0.4 MG/5 ML SYR (LEXISCAN) IV ONE
[2019-01-30] MEDS ORDERED: NS IV 1000 ML 1,000 ML ONE (11:52)
[2019-01-30] MEDS ORDERED: LIDOCAINE 1% INJ 20 ML 20 ML VIAL ONE (11:52)
[2019-01-30] MEDS ORDERED: HEParin (CATH LAB) 2,000 ML IV ONE (11:52)
--- OUTSIDE RECORDS SUMMARY | 2019-01-30 11:54 | XMS REPORT | Continuity of Care Document ---
Author Organization Unknown Address Unknown Allergies Active Description Code Type Severity Reaction Onset Reported/Identified Relationship to Patient Clinical Status Yes hydromorphone HCl [id number] Drug Allergy Unknown HIVES 11/14/2018 Yes meperidine HCl [id number] Drug Allergy Unknown N/V 11/14/2018 Yes oxycodone [id number] Drug Allergy Unknown HIVES 11/14/2018 Yes morphine [id number] Drug Allergy Severe HEART STOPPED 11/17/2018 Yes meperidine HCl [id number] Drug Allergy Mild N/V 11/17/2018 Yes infliximab-dyyb [id number] Drug Allergy Severe ATRIAL FIB 12/05/2018 Medications There is no data. Problems Date Dx Coded Attending Type Code Diagnosis Diagnosed By 11/14/2018 MK CRONIN MD Ot K50.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, UNSPECIFIED, WITHOUT CO 11/14/2018 MK CRONIN MD Ot K50.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, UNSPECIFIED, WITHOUT CO 11/15/2018 MARQUITA LUIZA Ot I10 ESSENTIAL (PRIMARY) HYPERTENSION 11/15/2018 BERNJONI LUIZA Ot R07.89 OTHER CHEST PAIN 11/15/2018 MARQUITA LUIZA Ot R11.2 NAUSEA WITH VOMITING, UNSPECIFIED 11/15/2018 MARQUITA LUIZA Ot T50.995A ADVERSE EFFECT OF DRUG/MEDS/BIOL SUBST, 11/15/2018 BERNJONI LUIZA Ot Z79.52 MEDICAID SPECIALIST (CURRENT) USE OF SYSTEMIC STER 11/15/2018 BERNJONI LUIZA Ot Z87.19 PERSONAL HISTORY OF OTHER DISEASES OF TH 11/15/2018 BERNLYNSEY QUINONESIS Ot Z87.442 PERSONAL HISTORY OF URINARY CALCULI 11/15/2018 BERNJONI LUIZA Ot Z88.5 ALLERGY STATUS TO NARCOTIC AGENT STATUS 11/15/2018 MARQUITA LUIZA Ot Z88.8 ALLERGY STATUS TO OTH DRUG/MEDS/BIOL SUB 11/15/2018 BERNJONI LUIZA Ot Z90.79 ACQUIRED ABSENCE OF OTHER GENITAL ORGAN( 11/15/2018 LYNSEY JUÁREZIS Ot Z90.89 ACQUIRED ABSENCE OF OTHER ORGANS 11/15/2018 LYNSEY JUÁREZIS Ot Z98.890 OTHER SPECIFIED POSTPROCEDURAL STATES 11/15/2018 ROSEANNE CHACON, MK Velazquez Ot K50.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, UNSPECIFIED, WITHOUT CO 11/16/2018 BERNOT LUIZA Ot I10 ESSENTIAL (PRIMARY) HYPERTENSION 11/16/2018 MARQUITA LUIZA Ot R07.89 OTHER CHEST PAIN 11/16/2018 BERNJONI LUIZA Ot R11.2 NAUSEA WITH VOMITING, UNSPECIFIED 11/16/2018 MARQUITA LUIZA Ot T50.995A ADVERSE EFFECT OF DRUG/MEDS/BIOL SUBST, 11/16/2018 VICENTEJONI LUIZA Ot Z79.52 SNF (CURRENT) USE OF SYSTEMIC STER 11/16/2018 VICENTEJONI LUIZA Ot Z87.19 PERSONAL HISTORY OF OTHER DISEASES OF TH 11/16/2018 VICENTEJONI LUIZA Ot Z87.442 PERSONAL HISTORY OF URINARY CALCULI 11/16/2018 LYNSEY JUÁREZIS Ot Z88.5 ALLERGY STATUS TO NARCOTIC AGENT STATUS 11/16/2018 MARQUITA LUIZA Ot Z88.8 ALLERGY STATUS TO OTH DRUG/MEDS/BIOL SUB 11/16/2018 MARQUITA LUIZA Ot Z90.79 ACQUIRED ABSENCE OF OTHER GENITAL ORGAN( 11/16/2018 MARQUITA LUIZA Ot Z90.89 ACQUIRED ABSENCE OF OTHER ORGANS 11/16/2018 MARQUITA LUIZA Ot Z98.890 OTHER SPECIFIED POSTPROCEDURAL STATES 11/21/2018 PRANAY TORO MD Ot A41.9 SEPSIS, UNSPECIFIED ORGANISM 11/21/2018 PRANAY TORO MD Ot D69.6 THROMBOCYTOPENIA, UNSPECIFIED 11/21/2018 PRANAY TORO MD Ot 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, UNSPECIFIED 11/21/2018 PRANAY TORO MD Ot E83.42 HYPOMAGNESEMIA 11/21/2018 PRANAY TORO MD Ot E87.1 HYPO-OSMOLALITY AND HYPONATREMIA 11/21/2018 PRANAY TORO MD Ot E87.6 HYPOKALEMIA 11/21/2018 PRANAY TORO MD Ot I10 ESSENTIAL (PRIMARY) HYPERTENSION 11/21/2018 PRANAY TORO MD Ot I48.0 PAROXYSMAL ATRIAL FIBRILLATION 11/21/2018 PRANAY TORO MD Ot 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, UNSPECIFIED, WITH INTES 11/21/2018 PRANAY TORO MD Ot N17.0 ACUTE KIDNEY FAILURE WITH TUBULAR NECROS 11/21/2018 PRANAY TORO MD Ot N20.0 CALCULUS OF KIDNEY 11/21/2018 PRANAY TORO MD Ot N30.00 ACUTE CYSTITIS WITHOUT HEMATURIA 11/21/2018 PRANAY TORO MD Ot R65.21 SEVERE SEPSIS WITH SEPTIC SHOCK 11/22/2018 PRANAY TORO MD Ot A41.1 SEPSIS DUE TO OTHER SPECIFIED STAPHYLOCO 11/22/2018 PRANAY TORO MD Ot D69.6 THROMBOCYTOPENIA, UNSPECIFIED 11/22/2018 PRANAY TORO MD Ot 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, UNSPECIFIED 11/22/2018 PRANAY TORO MD Ot E83.42 HYPOMAGNESEMIA 11/22/2018 PRANAY TORO MD Ot E86.9 VOLUME DEPLETION, UNSPECIFIED 11/22/2018 PRANAY TORO MD Ot E87.1 HYPO-OSMOLALITY AND HYPONATREMIA 11/22/2018 PRANAY TORO MD Ot E87.6 HYPOKALEMIA 11/22/2018 PRANAY TORO MD Ot I10 ESSENTIAL (PRIMARY) HYPERTENSION 11/22/2018 PRANAY TORO MD Ot I48.0 PAROXYSMAL ATRIAL FIBRILLATION 11/22/2018 PRANAY TORO MD Ot 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, UNSPECIFIED, WITH INTES 11/22/2018 PRANAY TORO MD Ot K91.2 POSTSURGICAL MALABSORPTION, NOT ELSEWHER 11/22/2018 PRANAY TORO MD Ot N17.0 ACUTE KIDNEY FAILURE WITH TUBULAR NECROS 11/22/2018 PRANAY TORO MD Ot N20.0 CALCULUS OF KIDNEY 11/22/2018 PRANAY TORO MD Ot N30.00 ACUTE CYSTITIS WITHOUT HEMATURIA 11/22/2018 PRANAY TORO MD Ot R65.21 SEVERE SEPSIS WITH SEPTIC SHOCK 12/05/2018 LAURA ANTOINE MD Ot I10 ESSENTIAL (PRIMARY) HYPERTENSION 12/05/2018 LAURA ANTOINE MD Ot K50.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, UNSPECIFIED, WITHOUT CO 12/05/2018 LAURA ANTOINE MD Ot R07.89 OTHER CHEST PAIN 12/05/2018 LAURA ANTOIEN MD Ot Z79.52 SNF (CURRENT) USE OF SYSTEMIC STER 12/05/2018 LAURA ANTOINE MD Ot Z79.82 SNF (CURRENT) USE OF ASPIRIN 12/05/2018 LAURA ANTOINE MD Ot Z85.828 PERSONAL HISTORY OF OTHER MALIGNANT NEOP 12/05/2018 LAURA ANTOINE MD Ot Z87.19 PERSONAL HISTORY OF OTHER DISEASES OF 12/05/2018 LAURA ANTOINE MD Ot Z87.442 PERSONAL HISTORY OF URINARY CALCULI 12/05/2018 LAURA ANTOINE MD Ot Z88.5 ALLERGY STATUS TO NARCOTIC AGENT STATUS 12/05/2018 LAURA ANTOINE MD Ot Z88.8 ALLERGY STATUS TO OTH DRUG/MEDS/BIOL SUB 12/05/2018 LAURA ANTOINE MD Ot Z90.49 ACQUIRED ABSENCE OF OTHER SPECIFIED PART 12/05/2018 LAURA ANTOINE MD Ot Z90.89 ACQUIRED ABSENCE OF OTHER ORGANS 12/05/2018 LAURA ANTOINE MD Ot Z98.52 VASECTOMY STATUS 12/05/2018 LAURA ANTOINE MD Ot Z98.890 OTHER SPECIFIED POSTPROCEDURAL STATES 12/05/2018 MK CRONIN MD Ot K50.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, UNSPECIFIED, WITHOUT CO 12/07/2018 LAURA ANTOINE MD Ot I10 ESSENTIAL (PRIMARY) HYPERTENSION 12/07/2018 LAURA ANTOINE MD Ot K50.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, UNSPECIFIED, WITHOUT CO 12/07/2018 LAURA ANTOINE MD Ot R07.89 OTHER CHEST PAIN 12/07/2018 LAURA ANTOINE MD Ot Z79.52 MEDICAID SPECIALIST (CURRENT) USE OF SYSTEMIC STER 12/07/2018 LAURA ANTOINE MD Ot Z79.82 MEDICAID SPECIALIST (CURRENT) USE OF ASPIRIN 12/07/2018 LAURA ANTOINE MD Ot Z85.828 PERSONAL HISTORY OF OTHER MALIGNANT NEOP 12/07/2018 LAURA ANTOINE MD Ot Z87.19 PERSONAL HISTORY OF OTHER DISEASES OF 12/07/2018 LAURA ANTOINE MD Ot Z87.442 PERSONAL HISTORY OF URINARY CALCULI 12/07/2018 ELINA CHACON, LAURA Velazquez Ot Z88.5 ALLERGY STATUS TO NARCOTIC AGENT STATUS 12/07/2018 LAURA ANTOINE MD Ot Z88.8 ALLERGY STATUS TO OTH DRUG/MEDS/BIOL SUB 12/07/2018 LAURA ANTOINE MD Ot Z90.49 ACQUIRED ABSENCE OF OTHER SPECIFIED PART 12/07/2018 LAURA ANTOINE MD Ot Z90.89 ACQUIRED ABSENCE OF OTHER ORGANS 12/07/2018 LAURA ANTOINE MD Ot Z98.52 VASECTOMY STATUS 12/07/2018 LAURA ANTOINE MD Ot Z98.890 OTHER SPECIFIED POSTPROCEDURAL STATES 12/14/2018 MK CRONNI MD Ot K50.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, UNSPECIFIED, WITHOUT CO 12/21/2018 Ot 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 12/25/2018 MK CRONIN MD Ot 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 12/25/2018 MK CRONIN MD Ot 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 12/25/2018 MK CRONIN MD Ot 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 12/26/2018 MK CRONIN MD Ot K50.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, UNSPECIFIED, WITHOUT CO 12/26/2018 MK CRONIN MD Ot K50.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, UNSPECIFIED, WITHOUT CO 01/03/2019 JOSEF CHACON FACC, ALI FACP CCDS Ot E87.8 [facility] DISORDERS OF ELECTROLYTE AND FLUID B 01/03/2019 JOSEF CHACON FACC, ALI FACP CCDS Ot G47.33 OBSTRUCTIVE SLEEP APNEA (ADULT) (PEDIATR 01/03/2019 JOSEF CHACON FACC, ALI FACP CCDS Ot I48.0 PAROXYSMAL ATRIAL FIBRILLATION 01/03/2019 JOSEF CHACON FACC, ALI FACP CCDS Ot K50.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, UNSPECIFIED, WITHOUT CO 01/03/2019 JOSEF CHACON FACC, ALI FACP CCDS Ot R06.02 SHORTNESS OF BREATH 01/08/2019 MK CRONIN MD Ot K50.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, UNSPECIFIED, WITHOUT CO 01/11/2019 Ot 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 01/26/2019 JOSEF CHACON FACC, ALI FACP CCDS Ot E87.8 [facility] DISORDERS OF ELECTROLYTE AND FLUID B 01/26/2019 JOSEF CAMPBELL, [facility] CCD[facility] Ot G47.33 OBSTRUCTIVE SLEEP APNEA (ADULT) (PEDIATR 01/26/2019 JOSEF CHACON FACC, [facility] CCDS Ot I48.0 PAROXYSMAL ATRIAL FIBRILLATION 01/26/2019 JOSEF CHACON FACC, [facility] CCDS Ot K50.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, UNSPECIFIED, WITHOUT CO 01/26/2019 JOSEF CHACON FACC, [facility] CCDS Ot R06.02 SHORTNESS OF BREATH Procedures Code Description Performed By Performed On [id number] SCIENTOLOGIST OF CARDIAC RHYTHM, SINGLE 11/17/2018 Results Test Result Range Complete blood count (CBC) with automated white blood cell (WBC) differential - 11/14/18 19:42 Blood leukocytes automated count (number/volume) 10.6 10*3/uL 4.3-11.0 Blood erythrocytes automated count (number/volume) 4.91 10*6/uL 4.35-5.85 Venous blood hemoglobin measurement (mass/volume) 16.0 g/dL 13.3-17.7 Blood hematocrit (volume fraction) 48 % 40-54 Automated erythrocyte mean corpuscular volume 98 [foz_us] 80-99 Automated erythrocyte mean corpuscular hemoglobin (mass per erythrocyte) 33 pg 25-34 Automated erythrocyte mean corpuscular hemoglobin concentration measurement ( mass/volume) 33 g/dL 32-36 Automated erythrocyte distribution width ratio 13.5 % 10.0-14.5 Automated blood platelet count (count/volume) 167 10*3/uL 130-400 Automated blood platelet mean volume measurement 11.0 [foz_us] 7.4-10.4 Automated blood neutrophils/100 leukocytes 76 % 42-75 Automated blood lymphocytes/100 leukocytes 15 % 12-44 Blood monocytes/100 leukocytes 7 % 0-12 Automated blood eosinophils/100 leukocytes 2 % 0-10 Automated blood basophils/100 leukocytes 0 % 0-10 Blood neutrophils automated count (number/volume) 8.0 10*3 1.8-7.8 Blood lymphocytes automated count (number/volume) 1.6 10*3 1.0-4.0 Blood monocytes automated count (number/volume) 0.8 10*3 0.0-1.0 Automated eosinophil count 0.2 10*3/uL 0.0-0.3 Automated blood basophil count (count/volume) 0.0 10*3/uL 0.0-0.1 PT panel in platelet poor plasma by coagulation assay - 11/14/18 19:42 Prothrombin time (PT) in platelet poor plasma by coagulation assay 12.2 s 12.2-14.7 INR in platelet poor plasma or blood by coagulation assay 0.9 0.8-1.4 Activated partial thromboplastin time (aPTT) in platelet poor plasma bycoagulation assay - 11/14/18 19:42 Activated partial thromboplastin time (aPTT) in platelet poor plasma bycoagulation assay 27 s 24-35 Comprehensive metabolic panel - 11/14/18 19:42 Serum or plasma sodium measurement (moles/volume) 139 mmol/L 135-145 Serum or plasma potassium measurement (moles/volume) 3.9 mmol/L 3.6-5.0 Serum or plasma chloride measurement (moles/volume) 105 mmol/L 98-107 Carbon dioxide 19 mmol/L 21-32 Serum or plasma anion gap determination (moles/volume) 15 mmol/L 5-14 Serum or plasma urea nitrogen measurement (mass/volume) 10 mg/dL 7-18 Serum or plasma creatinine measurement (mass/volume) 1.13 mg/dL 0.60-1.30 Serum or plasma urea nitrogen/creatinine mass ratio 9 NRG Serum or plasma creatinine measurement with calculation of estimated glomerular filtration rate > NRG Serum or plasma glucose measurement (mass/volume) 158 mg/dL 70-105 Serum or plasma calcium measurement (mass/volume) 9.9 mg/dL 8.5-10.1 Serum or plasma total bilirubin measurement (mass/volume) 0.7 mg/dL 0.1-1.0 Serum or plasma alkaline phosphatase measurement (enzymatic activity/volume) 59 U/L 40-136 Serum or plasma aspartate aminotransferase measurement (enzymatic activity/ volume) 35 U/L 5-34 Serum or plasma alanine aminotransferase measurement (enzymatic activity/volume ) 33 U/L 0-55 Serum or plasma protein measurement (mass/volume) 7.6 g/dL 6.4-8.2 Serum or plasma albumin measurement (mass/volume) 4.2 g/dL 3.2-4.5 CALCIUM CORRECTED 9.7 mg/dL 8.5-10.1 Magnesium - 11/14/18 19:42 Magnesium 1.9 mg/dL 1.8-2.4 Serum or plasma troponin i.cardiac measurement (mass/volume) - 11/14/18 19:42 Serum or plasma troponin i.cardiac measurement (mass/volume) < ng/ mL <0.028 Myoglobin, serum - 11/14/18 19:42 Myoglobin, serum 83.2 ng/mL 10.0-92.0 Fibrin D-dimer FEU measurement in platelet poor plasma (mass/volume) - 19:42 Fibrin D-dimer FEU measurement in platelet poor plasma (mass/volume) 0.56 ug/mL 0.00-0.49 Serum or plasma amylase measurement (enzymatic activity/volume) - 11/14/18 19: 42 Serum or plasma amylase measurement (enzymatic activity/volume) 107 U/L 25-125 Lipase - 11/14/18 19:42 Lipase 40 U/L 8-78 Serum or plasma lithium measurement (moles/volume) - 11/14/18 19:42 BNP level 19.2 pg/mL <100.0 Serum or plasma troponin i.cardiac measurement (mass/volume) - 11/14/18 21:48 Serum or plasma troponin i.cardiac measurement (mass/volume) < ng/ mL <0.028 Complete blood count (CBC) with automated white blood cell (WBC) differential - 11/16/18 12:55 Blood leukocytes automated count (number/volume) 26.0 10*3/uL 4.3-11.0 Blood erythrocytes automated count (number/volume) 4.50 10*6/uL 4.35-5.85 Venous blood hemoglobin measurement (mass/volume) 14.3 g/dL 13.3-17.7 Blood hematocrit (volume fraction) 43 % 40-54 Automated erythrocyte mean corpuscular volume 96 [foz_us] 80-99 Automated erythrocyte mean corpuscular hemoglobin (mass per erythrocyte) 32 pg 25-34 Automated erythrocyte mean corpuscular hemoglobin concentration measurement ( mass/volume) 33 g/dL 32-36 Automated erythrocyte distribution width ratio 13.6 % 10.0-14.5 Automated blood platelet count (count/volume) 130 10*3/uL 130-400 Automated blood platelet mean volume measurement 11.1 [foz_us] 7.4-10.4 Automated blood neutrophils/100 leukocytes 92 % 42-75 Automated blood lymphocytes/100 leukocytes 2 % 12-44 Blood monocytes/100 leukocytes 6 % 0-12 Automated blood eosinophils/100 leukocytes 0 % 0-10 Automated blood basophils/100 leukocytes 0 % 0-10 Blood neutrophils automated count (number/volume) 23.9 10*3 1.8-7.8 Blood lymphocytes automated count (number/volume) 0.6 10*3 1.0-4.0 Blood monocytes automated count (number/volume) 1.4 10*3 0.0-1.0 Automated eosinophil count 0.1 10*3/uL 0.0-0.3 Automated blood basophil count (count/volume) 0.1 10*3/uL 0.0-0.1 Blood lactic acid measurement (moles/volume) - 11/16/18 12:55 Blood lactic acid measurement (moles/volume) 1.92 mmol/L 0.50-2.00 PT panel in platelet poor plasma by coagulation assay - 11/16/18 12:55 Prothrombin time (PT) in platelet poor plasma by coagulation assay 14.2 s 12.2-14.7 INR in platelet poor plasma or blood by coagulation assay 1.1 0.8-1.4 Activated partial thromboplastin time (aPTT) in platelet poor plasma bycoagulation assay - 11/16/18 12:55 Activated partial thromboplastin time (aPTT) in platelet poor plasma bycoagulation assay 32 s 24-35 Comprehensive metabolic panel - 11/16/18 12:55 Serum or plasma sodium measurement (moles/volume) 130 mmol/L 135-145 Serum or plasma potassium measurement (moles/volume) 3.5 mmol/L 3.6-5.0 Serum or plasma chloride measurement (moles/volume) 100 mmol/L 98-107 Carbon dioxide 17 mmol/L 21-32 Serum or plasma anion gap determination (moles/volume) 13 mmol/L 5-14 Serum or plasma urea nitrogen measurement (mass/volume) 24 mg/dL 7-18 Serum or plasma creatinine measurement (mass/volume) 3.12 mg/dL 0.60-1.30 Serum or plasma urea nitrogen/creatinine mass ratio 8 NRG Serum or plasma creatinine measurement with calculation of estimated glomerular filtration rate 20 NRG Serum or plasma glucose measurement (mass/volume) 116 mg/dL 70-105 Serum or plasma calcium measurement (mass/volume) 8.5 mg/dL 8.5-10.1 Serum or plasma total bilirubin measurement (mass/volume) 1.1 mg/dL 0.1-1.0 Serum or plasma alkaline phosphatase measurement (enzymatic activity/volume) 38 U/L 40-136 Serum or plasma aspartate aminotransferase measurement (enzymatic activity/ volume) 43 U/L 5-34 Serum or plasma alanine aminotransferase measurement (enzymatic activity/volume ) 32 U/L 0-55 Serum or plasma protein measurement (mass/volume) 6.9 g/dL 6.4-8.2 Serum or plasma albumin measurement (mass/volume) 3.7 g/dL 3.2-4.5 CALCIUM CORRECTED 8.7 mg/dL 8.5-10.1 Serum or plasma troponin i.cardiac measurement (mass/volume) - 11/16/18 12:55 Serum or plasma troponin i.cardiac measurement (mass/volume) < ng/ mL <0.028 Blood manual differential performed detection - 11/16/18 12:55 Blood monocytes/100 leukocytes 4 % NR Manual blood segmented neutrophils/100 leukocytes 72 % NRG Blood band neutrophils/100 leukocytes 21 % NRG Manual blood lymphocytes/100 leukocytes 2 % NRG Manual eosinophils/100 leukocytes in nose 0 % NRG Manual blood basophils/100 leukocytes 0 % NRG Blood lymphocytes variant/100 leukocytes 1 % NRG Blood erythrocyte morphology finding identification NORMAL NRG Blood toxic granules detection by light microscopy 3+ NRG Serum or plasma creatine kinase measurement (enzymatic activity/volume) - 11/16 12:55 Serum or plasma creatine kinase measurement (enzymatic activity/volume) 201 U/L 30-200 Bacterial blood culture - 11/16/18 12:55 QUANTITY OF GROWTH Isolated NRG Bacterial blood culture [id number] [facility] Complete urinalysis with reflex to culture - 11/16/18 13:20 Urine color determination YELLOW NRG Urine clarity determination SLIGHTLY CLOUDY NR Urine pH measurement by test strip 5 5-9 Specific gravity of urine by test strip 1.030 1.016- 1.022 Urine protein assay by test strip, semi-quantitative 3+ NEGATIVE Urine glucose detection by automated test strip 1+ NEGATIVE Erythrocytes detection in urine sediment by light microscopy 4+ NEGATIVE Urine ketones detection by automated test strip 1+ NEGATIVE Urine nitrite detection by test strip POSITIVE NEGATIVE Urine total bilirubin detection by test strip 1+ NEGATIVE Urine urobilinogen measurement by automated test strip (mass/volume) 1 mg/dL NORMAL Urine leukocyte esterase detection by dipstick 1+ NEGATIVE Automated urine sediment erythrocyte count by microscopy (number/high power field) RARE NRG Automated urine sediment leukocyte count by microscopy (number/high power field ) [HPF] NRG Bacteria detection in urine sediment by light microscopy MODERATE NRG Squamous epithelial cells detection in urine sediment by light microscopy RARE NRG Crystals detection in urine sediment by light microscopy PRESENT NRG Casts detection in urine sediment by light microscopy PRESENT NRG Mucus detection in urine sediment by light microscopy NEGATIVE NRG Complete urinalysis with reflex to culture NO NRG Amorphous sediment detection in urine sediment by light microscopy MOD ZUHAIR URATES NRG Hyaline casts detection in urine sediment by light microscopy 10-25 NRG Renal epithelial cells detection in urine sediment by light microscopy NONE NRG Bacterial urine culture - 11/16/18 13:20 Bacterial urine culture NG NRG Bacterial blood culture - 11/16/18 13:30 Bacterial blood culture NG NRG Methicillin resistant Staphylococcus aureus (MRSA) screening culture - 21:00 Methicillin resistant Staphylococcus aureus (MRSA) screening culture NEG NRG Complete blood count (CBC) with automated white blood cell (WBC) differential - 11/17/18 03:40 Blood leukocytes automated count (number/volume) 16.2 10*3/uL 4.3-11.0 Blood erythrocytes automated count (number/volume) 3.75 10*6/uL 4.35-5.85 Venous blood hemoglobin measurement (mass/volume) 12.2 g/dL 13.3-17.7 Blood hematocrit (volume fraction) 37 % 40-54 Automated erythrocyte mean corpuscular volume 98 [foz_us] 80-99 Automated erythrocyte mean corpuscular hemoglobin (mass per erythrocyte) 33 pg 25-34 Automated erythrocyte mean corpuscular hemoglobin concentration measurement ( mass/volume) 33 g/dL 32-36 Automated erythrocyte distribution width ratio 13.7 % 10.0-14.5 Automated blood platelet count (count/volume) 90 10*3/uL 130-400 Automated blood platelet mean volume measurement 11.1 [foz_us] 7.4-10.4 Automated blood neutrophils/100 leukocytes 93 % 42-75 Automated blood lymphocytes/100 leukocytes 4 % 12-44 Blood monocytes/100 leukocytes 3 % 0-12 Automated blood eosinophils/100 leukocytes 0 % 0-10 Automated blood basophils/100 leukocytes 0 % 0-10 Blood neutrophils automated count (number/volume) 15.0 10*3 1.8-7.8 Blood lymphocytes automated count (number/volume) 0.6 10*3 1.0-4.0 Blood monocytes automated count (number/volume) 0.6 10*3 0.0-1.0 Automated eosinophil count 0.0 10*3/uL 0.0-0.3 Automated blood basophil count (count/volume) 0.0 10*3/uL 0.0-0.1 Comprehensive metabolic panel - 11/17/18 03:40 Serum or plasma sodium measurement (moles/volume) 137 mmol/L 135-145 Serum or plasma potassium measurement (moles/volume) 2.9 mmol/L 3.6-5.0 Serum or plasma chloride measurement (moles/volume) 113 mmol/L 98-107 Carbon dioxide 14 mmol/L 21-32 Serum or plasma anion gap determination (moles/volume) 10 mmol/L 5-14 Serum or plasma urea nitrogen measurement (mass/volume) 21 mg/dL 7-18 Serum or plasma creatinine measurement (mass/volume) 1.43 mg/dL 0.60-1.30 Serum or plasma urea nitrogen/creatinine mass ratio 15 NRG Serum or plasma creatinine measurement with calculation of estimated glomerular filtration rate 50 NRG Serum or plasma glucose measurement (mass/volume) 117 mg/dL 70-105 Serum or plasma calcium measurement (mass/volume) 7.4 mg/dL 8.5-10.1 Serum or plasma total bilirubin measurement (mass/volume) 0.7 mg/dL 0.1-1.0 Serum or plasma alkaline phosphatase measurement (enzymatic activity/volume) 34 U/L 40-136 Serum or plasma aspartate aminotransferase measurement (enzymatic activity/ volume) 32 U/L 5-34 Serum or plasma alanine aminotransferase measurement (enzymatic activity/volume ) 25 U/L 0-55 Serum or plasma protein measurement (mass/volume) 5.5 g/dL 6.4-8.2 Serum or plasma albumin measurement (mass/volume) 2.9 g/dL 3.2-4.5 CALCIUM CORRECTED 8.3 mg/dL 8.5-10.1 Serum or plasma phosphate measurement (mass/volume) - 11/17/18 03:40 Serum or plasma phosphate measurement (mass/volume) 2.5 mg/dL 2.3-4.7 Magnesium - 11/17/18 03:40 Magnesium 1.4 mg/dL 1.8-2.4 Serum or plasma lithium measurement (moles/volume) - 11/17/18 03:40 BNP level 104.7 pg/mL <100.0 Blood lactic acid measurement (moles/volume) - 11/17/18 05:48 Blood lactic acid measurement (moles/volume) 0.76 mmol/L 0.50-2.00 C DIFFICILE AG + TOXIN A/B. - 11/17/18 12:10 RESULTS NEGATIVE FOR ANTIGEN AND TOXIN A/B NRG Serum or plasma troponin i.cardiac measurement (mass/volume) - 11/17/18 12:45 Serum or plasma troponin i.cardiac measurement (mass/volume) < ng/ mL <0.028 Serum or plasma troponin i.cardiac measurement (mass/volume) - 11/17/18 17:49 Serum or plasma troponin i.cardiac measurement (mass/volume) < ng/ mL <0.028 Serum or plasma troponin i.cardiac measurement (mass/volume) - 11/17/18 23:59 Serum or plasma troponin i.cardiac measurement (mass/volume) < ng/ mL <0.028 Complete blood count (CBC) with automated white blood cell (WBC) differential - 11/18/18 03:15 Blood leukocytes automated count (number/volume) 9.0 10*3/uL 4.3-11.0 Blood erythrocytes automated count (number/volume) 3.37 10*6/uL 4.35-5.85 Venous blood hemoglobin measurement (mass/volume) 10.9 g/dL 13.3-17.7 Blood hematocrit (volume fraction) 33 % 40-54 Automated erythrocyte mean corpuscular volume 98 [foz_us] 80-99 Automated erythrocyte mean corpuscular hemoglobin (mass per erythrocyte) 32 pg 25-34 Automated erythrocyte mean corpuscular hemoglobin concentration measurement ( mass/volume) 33 g/dL 32-36 Automated erythrocyte distribution width ratio 13.9 % 10.0-14.5 Automated blood platelet count (count/volume) 81 10*3/uL 130-400 Automated blood platelet mean volume measurement 11.1 [foz_us] 7.4-10.4 Automated blood neutrophils/100 leukocytes 90 % 42-75 Automated blood lymphocytes/100 leukocytes 6 % 12-44 Blood monocytes/100 leukocytes 5 % 0-12 Automated blood eosinophils/100 leukocytes 0 % 0-10 Automated blood basophils/100 leukocytes 0 % 0-10 Blood neutrophils automated count (number/volume) 8.1 10*3 1.8-7.8 Blood lymphocytes automated count (number/volume) 0.5 10*3 1.0-4.0 Blood monocytes automated count (number/volume) 0.4 10*3 0.0-1.0 Automated eosinophil count 0.0 10*3/uL 0.0-0.3 Automated blood basophil count (count/volume) 0.0 10*3/uL 0.0-0.1 Whole blood basic metabolic panel - 11/18/18 03:15 Serum or plasma sodium measurement (moles/volume) 139 mmol/L 135-145 Serum or plasma potassium measurement (moles/volume) 3.0 mmol/L 3.6-5.0 Serum or plasma chloride measurement (moles/volume) 114 mmol/L 98-107 Carbon dioxide 17 mmol/L 21-32 Serum or plasma anion gap determination (moles/volume) 8 mmol/L 5-14 Serum or plasma urea nitrogen measurement (mass/volume) 12 mg/dL 7-18 Serum or plasma creatinine measurement (mass/volume) 0.88 mg/dL 0.60-1.30 Serum or plasma urea nitrogen/creatinine mass ratio 14 NRG Serum or plasma creatinine measurement with calculation of estimated glomerular filtration rate > NRG Serum or plasma glucose measurement (mass/volume) 127 mg/dL 70-105 Serum or plasma calcium measurement (mass/volume) 7.5 mg/dL 8.5-10.1 Serum or plasma phosphate measurement (mass/volume) - 11/18/18 03:15 Serum or plasma phosphate measurement (mass/volume) 2.1 mg/dL 2.3-4.7 Magnesium - 11/18/18 03:15 Magnesium 1.8 mg/dL 1.8-2.4 Vancomycin trough - 11/18/18 07:00 Vancomycin trough 13.7 ug/mL 10.0-20.0 Whole blood basic metabolic panel - 11/18/18 11:15 Serum or plasma sodium measurement (moles/volume) 139 mmol/L 135-145 Serum or plasma potassium measurement (moles/volume) 3.1 mmol/L 3.6-5.0 Serum or plasma chloride measurement (moles/volume) 114 mmol/L 98-107 Carbon dioxide 19 mmol/L 21-32 Serum or plasma anion gap determination (moles/volume) 6 mmol/L 5-14 Serum or plasma urea nitrogen measurement (mass/volume) 11 mg/dL 7-18 Serum or plasma creatinine measurement (mass/volume) 0.79 mg/dL 0.60-1.30 Serum or plasma urea nitrogen/creatinine mass ratio 14 NRG Serum or plasma creatinine measurement with calculation of estimated glomerular filtration rate > NRG Serum or plasma glucose measurement (mass/volume) 102 mg/dL 70-105 Serum or plasma calcium measurement (mass/volume) 7.5 mg/dL 8.5-10.1 Complete blood count (CBC) with automated white blood cell (WBC) differential - 11/19/18 03:40 Blood leukocytes automated count (number/volume) 5.7 10*3/uL 4.3-11.0 Blood erythrocytes automated count (number/volume) 3.20 10*6/uL 4.35-5.85 Venous blood hemoglobin measurement (mass/volume) 10.4 g/dL 13.3-17.7 Blood hematocrit (volume fraction) 31 % 40-54 Automated erythrocyte mean corpuscular volume 98 [foz_us] 80-99 Automated erythrocyte mean corpuscular hemoglobin (mass per erythrocyte) 33 pg 25-34 Automated erythrocyte mean corpuscular hemoglobin concentration measurement ( mass/volume) 33 g/dL 32-36 Automated erythrocyte distribution width ratio 14.0 % 10.0-14.5 Automated blood platelet count (count/volume) 73 10*3/uL 130-400 Automated blood platelet mean volume measurement 11.0 [foz_us] 7.4-10.4 Automated blood neutrophils/100 leukocytes 76 % 42-75 Automated blood lymphocytes/100 leukocytes 16 % 12-44 Blood monocytes/100 leukocytes 7 % 0-12 Automated blood eosinophils/100 leukocytes 2 % 0-10 Automated blood basophils/100 leukocytes 0 % 0-10 Blood neutrophils automated count (number/volume) 4.3 10*3 1.8-7.8 Blood lymphocytes automated count (number/volume) 0.9 10*3 1.0-4.0 Blood monocytes automated count (number/volume) 0.4 10*3 0.0-1.0 Automated eosinophil count 0.1 10*3/uL 0.0-0.3 Automated blood basophil count (count/volume) 0.0 10*3/uL 0.0-0.1 Whole blood basic metabolic panel - 11/19/18 03:40 Serum or plasma sodium measurement (moles/volume) 142 mmol/L 135-145 Serum or plasma potassium measurement (moles/volume) 3.2 mmol/L 3.6-5.0 Serum or plasma chloride measurement (moles/volume) 114 mmol/L 98-107 Carbon dioxide 21 mmol/L 21-32 Serum or plasma anion gap determination (moles/volume) 7 mmol/L 5-14 Serum or plasma urea nitrogen measurement (mass/volume) 12 mg/dL 7-18 Serum or plasma creatinine measurement (mass/volume) 0.76 mg/dL 0.60-1.30 Serum or plasma urea nitrogen/creatinine mass ratio 16 NRG Serum or plasma creatinine measurement with calculation of estimated glomerular filtration rate > NRG Serum or plasma glucose measurement (mass/volume) 98 mg/dL 70-105 Serum or plasma calcium measurement (mass/volume) 7.5 mg/dL 8.5-10.1 Serum or plasma phosphate measurement (mass/volume) - 11/19/18 03:40 Serum or plasma phosphate measurement (mass/volume) 1.5 mg/dL 2.3-4.7 Magnesium - 11/19/18 03:40 Magnesium 1.4 mg/dL 1.8-2.4 Complete blood count (CBC) with automated white blood cell (WBC) differential - 11/20/18 02:50 Blood leukocytes automated count (number/volume) 4.3 10*3/uL 4.3-11.0 Blood erythrocytes automated count (number/volume) 3.57 10*6/uL 4.35-5.85 Venous blood hemoglobin measurement (mass/volume) 11.5 g/dL 13.3-17.7 Blood hematocrit (volume fraction) 35 % 40-54 Automated erythrocyte mean corpuscular volume 97 [foz_us] 80-99 Automated erythrocyte mean corpuscular hemoglobin (mass per erythrocyte) 32 pg 25-34 Automated erythrocyte mean corpuscular hemoglobin concentration measurement ( mass/volume) 33 g/dL 32-36 Automated erythrocyte distribution width ratio 13.9 % 10.0-14.5 Automated blood platelet count (count/volume) 82 10*3/uL 130-400 Automated blood platelet mean volume measurement 10.7 [foz_us] 7.4-10.4 Automated blood neutrophils/100 leukocytes 65 % 42-75 Automated blood lymphocytes/100 leukocytes 22 % 12-44 Blood monocytes/100 leukocytes 10 % 0-12 Automated blood eosinophils/100 leukocytes 3 % 0-10 Automated blood basophils/100 leukocytes 1 % 0-10 Blood neutrophils automated count (number/volume) 2.8 10*3 1.8-7.8 Blood lymphocytes automated count (number/volume) 0.9 10*3 1.0-4.0 Blood monocytes automated count (number/volume) 0.4 10*3 0.0-1.0 Automated eosinophil count 0.1 10*3/uL 0.0-0.3 Automated blood basophil count (count/volume) 0.0 10*3/uL 0.0-0.1 Whole blood basic metabolic panel - 11/20/18 02:50 Serum or plasma sodium measurement (moles/volume) 140 mmol/L 135-145 Serum or plasma potassium measurement (moles/volume) 3.3 mmol/L 3.6-5.0 Serum or plasma chloride measurement (moles/volume) 112 mmol/L 98-107 Carbon dioxide 23 mmol/L 21-32 Serum or plasma anion gap determination (moles/volume) 5 mmol/L 5-14 Serum or plasma urea nitrogen measurement (mass/volume) 6 mg/dL 7-18 Serum or plasma creatinine measurement (mass/volume) 0.75 mg/dL 0.60-1.30 Serum or plasma urea nitrogen/creatinine mass ratio 8 NRG Serum or plasma creatinine measurement with calculation of estimated glomerular filtration rate > NRG Serum or plasma glucose measurement (mass/volume) 86 mg/dL 70-105 Serum or plasma calcium measurement (mass/volume) 7.6 mg/dL 8.5-10.1 Serum or plasma phosphate measurement (mass/volume) - 11/20/18 02:50 Serum or plasma phosphate measurement (mass/volume) 1.6 mg/dL 2.3-4.7 Magnesium - 11/20/18 02:50 Magnesium 1.8 mg/dL 1.8-2.4 Complete blood count (CBC) with automated white blood cell (WBC) differential - 11/21/18 05:24 Blood leukocytes automated count (number/volume) 4.0 10*3/uL 4.3-11.0 Blood erythrocytes automated count (number/volume) 3.62 10*6/uL 4.35-5.85 Venous blood hemoglobin measurement (mass/volume) 11.9 g/dL 13.3-17.7 Blood hematocrit (volume fraction) 35 % 40-54 Automated erythrocyte mean corpuscular volume 98 [foz_us] 80-99 Automated erythrocyte mean corpuscular hemoglobin (mass per erythrocyte) 33 pg 25-34 Automated erythrocyte mean corpuscular hemoglobin concentration measurement ( mass/volume) 34 g/dL 32-36 Automated erythrocyte distribution width ratio 13.7 % 10.0-14.5 Automated blood platelet count (count/volume) 99 10*3/uL 130-400 Automated blood platelet mean volume measurement 10.5 [foz_us] 7.4-10.4 Automated blood neutrophils/100 leukocytes 43 % 42-75 Automated blood lymphocytes/100 leukocytes 36 % 12-44 Blood monocytes/100 leukocytes 16 % 0-12 Automated blood eosinophils/100 leukocytes 4 % 0-10 Automated blood basophils/100 leukocytes 1 % 0-10 Blood neutrophils automated count (number/volume) 1.7 10*3 1.8-7.8 Blood lymphocytes automated count (number/volume) 1.5 10*3 1.0-4.0 Blood monocytes automated count (number/volume) 0.7 10*3 0.0-1.0 Automated eosinophil count 0.2 10*3/uL 0.0-0.3 Automated blood basophil count (count/volume) 0.0 10*3/uL 0.0-0.1 Whole blood basic metabolic panel - 11/21/18 05:24 Serum or plasma sodium measurement (moles/volume) 143 mmol/L 135-145 Serum or plasma potassium measurement (moles/volume) 4.0 mmol/L 3.6-5.0 Serum or plasma chloride measurement (moles/volume) 111 mmol/L 98-107 Carbon dioxide 25 mmol/L 21-32 Serum or plasma anion gap determination (moles/volume) 7 mmol/L 5-14 Serum or plasma urea nitrogen measurement (mass/volume) 7 mg/dL 7-18 Serum or plasma creatinine measurement (mass/volume) 0.79 mg/dL 0.60-1.30 Serum or plasma urea nitrogen/creatinine mass ratio 9 NRG Serum or plasma creatinine measurement with calculation of estimated glomerular filtration rate > NRG Serum or plasma glucose measurement (mass/volume) 104 mg/dL 70-105 Serum or plasma calcium measurement (mass/volume) 8.3 mg/dL 8.5-10.1 Serum or plasma phosphate measurement (mass/volume) - 11/21/18 05:24 Serum or plasma phosphate measurement (mass/volume) 2.2 mg/dL 2.3-4.7 Magnesium - 11/21/18 05:24 Magnesium 1.4 mg/dL 1.8-2.4 Complete blood count (CBC) with automated white blood cell (WBC) differential - 11/22/18 04:15 Blood leukocytes automated count (number/volume) 5.8 10*3/uL 4.3-11.0 Blood erythrocytes automated count (number/volume) 3.83 10*6/uL 4.35-5.85 Venous blood hemoglobin measurement (mass/volume) 12.3 g/dL 13.3-17.7 Blood hematocrit (volume fraction) 38 % 40-54 Automated erythrocyte mean corpuscular volume 98 [foz_us] 80-99 Automated erythrocyte mean corpuscular hemoglobin (mass per erythrocyte) 32 pg 25-34 Automated erythrocyte mean corpuscular hemoglobin concentration measurement ( mass/volume) 33 g/dL 32-36 Automated erythrocyte distribution width ratio 13.9 % 10.0-14.5 Automated blood platelet count (count/volume) 131 10*3/uL 130-400 Automated blood platelet mean volume measurement 10.8 [foz_us] 7.4-10.4 Automated blood neutrophils/100 leukocytes 47 % 42-75 Automated blood lymphocytes/100 leukocytes 37 % 12-44 Blood monocytes/100 leukocytes 12 % 0-12 Automated blood eosinophils/100 leukocytes 4 % 0-10 Automated blood basophils/100 leukocytes 1 % 0-10 Blood neutrophils automated count (number/volume) 2.7 10*3 1.8-7.8 Blood lymphocytes automated count (number/volume) 2.1 10*3 1.0-4.0 Blood monocytes automated count (number/volume) 0.7 10*3 0.0-1.0 Automated eosinophil count 0.2 10*3/uL 0.0-0.3 Automated blood basophil count (count/volume) 0.1 10*3/uL 0.0-0.1 Whole blood basic metabolic panel - 11/22/18 04:15 Serum or plasma sodium measurement (moles/volume) 141 mmol/L 135-145 Serum or plasma potassium measurement (moles/volume) 4.3 mmol/L 3.6-5.0 Serum or plasma chloride measurement (moles/volume) 109 mmol/L 98-107 Carbon dioxide 26 mmol/L 21-32 Serum or plasma anion gap determination (moles/volume) 6 mmol/L 5-14 Serum or plasma urea nitrogen measurement (mass/volume) 9 mg/dL 7-18 Serum or plasma creatinine measurement (mass/volume) 0.80 mg/dL 0.60-1.30 Serum or plasma urea nitrogen/creatinine mass ratio 11 NRG Serum or plasma creatinine measurement with calculation of estimated glomerular filtration rate > NRG Serum or plasma glucose measurement (mass/volume) 85 mg/dL 70-105 Serum or plasma calcium measurement (mass/volume) 8.4 mg/dL 8.5-10.1 Serum or plasma phosphate measurement (mass/volume) - 11/22/18 04:15 Serum or plasma phosphate measurement (mass/volume) 2.7 mg/dL 2.3-4.7 Magnesium - 11/22/18 04:15 Magnesium 1.6 mg/dL 1.8-2.4 TROPONIN T - 12/05/18 09:13 TROPONIN T 7 % <=15 Comprehensive metabolic panel - 12/05/18 09:13 Serum or plasma sodium measurement (moles/volume) 134 mmol/L 135-145 Serum or plasma potassium measurement (moles/volume) 3.9 mmol/L 3.6-5.0 Serum or plasma chloride measurement (moles/volume) 95 mmol/L 98-107 Carbon dioxide 19 mmol/L 21-32 Serum or plasma anion gap determination (moles/volume) 20 mmol/L 5-14 Serum or plasma urea nitrogen measurement (mass/volume) 10 mg/dL 7-18 Serum or plasma creatinine measurement (mass/volume) 0.96 mg/dL 0.60-1.30 Serum or plasma urea nitrogen/creatinine mass ratio 10 NRG Serum or plasma creatinine measurement with calculation of estimated glomerular filtration rate > NRG Serum or plasma glucose measurement (mass/volume) 162 mg/dL 70-105 Serum or plasma calcium measurement (mass/volume) 9.0 mg/dL 8.5-10.1 Serum or plasma total bilirubin measurement (mass/volume) 0.5 mg/dL 0.1-1.0 Serum or plasma alkaline phosphatase measurement (enzymatic activity/volume) 81 U/L 40-136 Serum or plasma aspartate aminotransferase measurement (enzymatic activity/ volume) 30 U/L 5-34 Serum or plasma alanine aminotransferase measurement (enzymatic activity/volume ) 22 U/L 0-55 Serum or plasma protein measurement (mass/volume) 7.3 g/dL 6.4-8.2 Serum or plasma albumin measurement (mass/volume) 4.0 g/dL 3.2-4.5 CALCIUM CORRECTED 9.0 mg/dL 8.5-10.1 Complete blood count (CBC) with automated white blood cell (WBC) differential - 12/05/18 09:13 Blood leukocytes automated count (number/volume) 6.6 10*3/uL 4.3-11.0 Blood erythrocytes automated count (number/volume) 4.35 10*6/uL 4.35-5.85 Venous blood hemoglobin measurement (mass/volume) 14.2 g/dL 13.3-17.7 Blood hematocrit (volume fraction) 43 % 40-54 Automated erythrocyte mean corpuscular volume 100 [foz_us] 80-99 Automated erythrocyte mean corpuscular hemoglobin (mass per erythrocyte) 33 pg 25-34 Automated erythrocyte mean corpuscular hemoglobin concentration measurement ( mass/volume) 33 g/dL 32-36 Automated erythrocyte distribution width ratio 14.6 % 10.0-14.5 Automated blood platelet count (count/volume) 179 10*3/uL 130-400 Automated blood platelet mean volume measurement 10.8 [foz_us] 7.4-10.4 Automated blood neutrophils/100 leukocytes 54 % 42-75 Automated blood lymphocytes/100 leukocytes 24 % 12-44 Blood monocytes/100 leukocytes 18 % 0-12 Automated blood eosinophils/100 leukocytes 3 % 0-10 Automated blood basophils/100 leukocytes 1 % 0-10 Blood neutrophils automated count (number/volume) 3.6 10*3 1.8-7.8 Blood lymphocytes automated count (number/volume) 1.6 10*3 1.0-4.0 Blood monocytes automated count (number/volume) 1.2 10*3 0.0-1.0 Automated eosinophil count 0.2 10*3/uL 0.0-0.3 Automated blood basophil count (count/volume) 0.1 10*3/uL 0.0-0.1 Blood manual differential performed detection - 12/05/18 09:13 Blood monocytes/100 leukocytes 23 % NRG Manual blood segmented neutrophils/100 leukocytes 55 % NRG Blood band neutrophils/100 leukocytes 2 % NRG Manual blood lymphocytes/100 leukocytes 17 % NRG Manual eosinophils/100 leukocytes in nose 3 % NRG Blood erythrocyte morphology finding identification NORMAL NRG Lipase - 12/05/18 09:13 Lipase 53 U/L 8-78 Complete urinalysis with reflex to culture - 12/05/18 11:17 Urine color determination YELLOW NRG Urine clarity determination CLEAR NRG Urine pH measurement by test strip 7 5-9 Specific gravity of urine by test strip <= 1.016-1.022 Urine protein assay by test strip, semi-quantitative NEGATIVE NEGATIVE Urine glucose detection by automated test strip NEGATIVE NEGATIVE Erythrocytes detection in urine sediment by light microscopy TRACE- I NEGATIVE Urine ketones detection by automated test strip NEGATIVE NEGATIVE Urine nitrite detection by test strip NEGATIVE NEGATIVE Urine total bilirubin detection by test strip NEGATIVE NEGATIVE Urine urobilinogen measurement by automated test strip (mass/volume) 0.2 mg/dL NORMAL Urine leukocyte esterase detection by dipstick NEGATIVE NEGATIVE Automated urine sediment erythrocyte count by microscopy (number/high power field) NONE NRG Automated urine sediment leukocyte count by microscopy (number/high power field ) NONE NRG Bacteria detection in urine sediment by light microscopy NEGATIVE NRG Squamous epithelial cells detection in urine sediment by light microscopy RARE NRG Crystals detection in urine sediment by light microscopy NONE NRG Casts detection in urine sediment by light microscopy NONE NRG Mucus detection in urine sediment by light microscopy NEGATIVE NRG Complete urinalysis with reflex to culture NO NRG Whole blood basic metabolic panel - 12/20/18 11:40 Serum or plasma sodium measurement (moles/volume) 135 mmol/L 135-145 Serum or plasma potassium measurement (moles/volume) 4.4 mmol/L 3.6-5.0 Serum or plasma chloride measurement (moles/volume) 98 mmol/L 98-107 Carbon dioxide 22 mmol/L 21-32 Serum or plasma anion gap determination (moles/volume) 15 mmol/L 5-14 Serum or plasma urea nitrogen measurement (mass/volume) 19 mg/dL 7-18 Serum or plasma creatinine measurement (mass/volume) 0.87 mg/dL 0.60-1.30 Serum or plasma urea nitrogen/creatinine mass ratio 22 NRG Serum or plasma creatinine measurement with calculation of estimated glomerular filtration rate > NRG Serum or plasma glucose measurement (mass/volume) 184 mg/dL 70-105 Serum or plasma calcium measurement (mass/volume) 9.0 mg/dL 8.5-10.1 Magnesium - 12/20/18 11:40 Magnesium 1.9 mg/dL 1.8-2.4 Encounters ACCT No. Visit Date/Time Discharge Status Pt. Type Provider Facility Loc./Unit Complaint [id number] 01/02/2019 07:46:00 01/02/2019 23:59:59 CLS Outpatient ALEX BAHENA MD, FACC, FACP CCDS [facility] CARD PAF [id number] 12/25/2018 09:39:00 12/25/2018 23:59:59 CLS Outpatient MK CRONIN MD [facility]NS DISEASE [id number] 12/05/2018 08:41:00 12/05/2018 11:54:00 DIS Emergency LAURA ANTOINE MD [facility] ER FS CHEST PAIN; ABD PAIN [id number] 11/16/2018 16:30:00 11/22/2018 13:26:00 DIS Inpatient PRANAY TORO MD [facility] 4TH UTI,SMALL BOWEL OBSTRUCTION,SEVERE SEPSIS [id number] 11/14/2018 18:51:00 11/15/2018 00:46:00 DIS Emergency LUIZA JUÁREZ [facility] ER CHEST PAINS [id number] 11/13/2018 09:40:00 11/13/2018 23:59:59 CLS Outpatient MK CRONIN MD [facility] DISEASE [id number] 02/05/2019 10:00:00 PEN Preadmit MK CRONIN MD [facility]NS DISEASE [id number] 01/30/2019 14:00:00 PEN Preadmit ALEX BAHENA MD, FACC, FACP CCDS [facility] CATH CHEST PAIN,PAF,SOB [id number] 12/20/2018 12:12:00 Document Registration
[2019-01-30] MEDS ORDERED: NS IV 1000 ML 1,000 ML IV SCH ×2 (12:00→14:54)
[2019-01-30 12:16] LABS: HEMOGLOBIN 13.9 G/DL (13.3-17.7); MEAN PLATELET VOLUME 11.7 FL (7.4-10.4); RED CELL DISTRIBUTION WIDTH 15.6 % (10.0-14.5); WHITE BLOOD COUNT 6.3 10^3/uL (4.3-11.0)
[2019-01-30 12:27] LABS: PROTHROMBIN TIME PATIENT 13.5 SEC (12.2-14.7)
[2019-01-30 12:34] LABS: ALANINE AMINOTRANSFERASE 19 U/L (0-55); ALBUMIN 3.8 GM/DL (3.2-4.5); ALKALINE PHOSPHATASE 65 U/L (40-136); BUN/CREATININE RATIO 13; CALCIUM 9.3 MG/DL (8.5-10.1); CARBON DIOXIDE 23 MMOL/L (21-32); CHLORIDE 109 MMOL/L (98-107); CHOLESTEROL 135 MG/DL (< 200); CREATININE SERUM 0.89 MG/DL (0.60-1.30); GFR ESTIMATED > 60; GLUCOSE 102 MG/DL (70-105); HDL CHOLESTEROL 48 MG/DL (40-60); POTASSIUM 3.7 MMOL/L (3.6-5.0); SODIUM 144 MMOL/L (135-145); TOTAL PROTEIN 7.3 GM/DL (6.4-8.2); TRIGLYCERIDES 160 MG/DL (<150); VLDL CHOLESTEROL 32 MG/DL (5-40)
[2019-01-30] MEDS ORDERED: METO100T6 PO (12:37)
[2019-01-30] MEDS ORDERED: MAGN400T50 PO (12:37)
[2019-01-30] MEDS ORDERED: CHOL5POW PO (12:37)
[2019-01-30] MEDS ORDERED: DOXA1TAB2 PO (12:37)
[2019-01-30] MEDS ORDERED: INFL100V IV (12:37)
[2019-01-30] MEDS ORDERED: ARIP10TA17 PO (12:37)
[2019-01-30] MEDS ORDERED: PARO30TA3 PO (12:37)
[2019-01-30] MEDS ORDERED: LOPE2TAB34 PO (12:37)
[2019-01-30] MEDS ORDERED: APIX2.5T PO (12:37)
[2019-01-30] MEDS ORDERED: TADA5TAB2 PO (12:37)
[2019-01-30] MEDS ORDERED: fentaNYL INJECTION 100 MCG/2 ML AMP ONE (14:15)
[2019-01-30] MEDS ORDERED: MIDAZOLAM 5 MG/5 ML (VERSED) VIAL ONE (14:15)
--- NOTE | 2019-01-30 14:54 | Cardiac Procedure Note-CS/ASA ---
Pre-Procedure Note Pre-Op Procedure Note H&P Reviewed The H&P was reviewed, patient examined and no changes noted. Date H&P Reviewed: Jan 30, 2019 Time H&P Reviewed: 14:00 Conscious Sedation Pre-Proced Time 14:00 ASA Score 3 For ASA 3 and 4: Consider anesthesia and medical clearance. Also, for patients with a history of failed moderate sedation consider anesthesia. Airway Lungs Heart ASA score ASA 1: a normal healthy patient ASA 2: a patient with a mild systemic disease (mid diabetes, controlled hypertension, obesity ASA 3: a patient with a severe systemic disease that limits activity (angina , COPD, prior Myocardial infarction) ASA 4: a patient with an incapacitating disease that is a constant threat to life (CHF, renal failure) ASA 5: a moribund patient not expected to survive 24 hrs. (ruptured aneurysm) ASA 6: a declared brain- patient whose organs are being harvested. For emergent operations, add the letter E after the classification Mallampati Classification Grade 2 Sedation Plan Analgesia, Amnesia, Plan communicated to team members, Discussed options with patient/fam, Discussed risks with patient/fam The patient is an appropriate candidate to undergo the planned procedure, sedation, and anesthesia. The patient immediately re-assessed prior to indication. ALEX BAHENA MD FACP FAC CCDS Jan 30, 2019 14:54
[2019-01-30] MEDS ORDERED: PATIENT MAY USE OWN MEDS, ALL PO SCH (15:00)
--- NOTE | 2019-01-30 15:01 | Discharge Inst-Post CATH ---
Discharge Inst-CATH/EP Post Cardiac Cath/EP D/C Inst Follow Up/Plan F/u with Dr Finley in 2 weeks <b>CARDIAC CATH/EP PROCEDURE DISCHARGE INSTRUCTIONS</b> ACTIVITY * Go Home directly and rest. * Limit activity of the leg (or wrist if it was used) for 7 days including aerobics, swimming, jogging, bicycling, etc. * Restrict stair-climbing for 7 days if possible, if not, climb up with your non -cath leg, then bring together on the same step. * Avoid lifting, pushing, pulling or excessive movement of the affected extremity for 7 days. * Customary sexual activity may be resumed after 2 days-use caution not to use a position that strains or causes pain to the affected extremity. * No driving for 24 hours. * NO SMOKING. * Avoid straining for bowel movements for 7 days. * Gentle walking on level ground is allowed. * Returning to work will depend on the type of procedure and the results. Your doctor will discuss this with you. CALL YOUR DOCTOR FOR ANY OF THE FOLLOWING: *If bleeding from the puncture site occurs- Apply gentle pressure to site with clean cloth and call your doctor or EMS. * If a knot or lump forms under the skin, increases in size, or causes pain. * If bruising appears to be worsening or moving further down your leg instead of disappearing. * Temperature above 101 F. CARE OF YOUR GROIN INCISION; * Bruising or purple discoloration of the skin near the puncture site is common. * You may shower only, no bathtub bathing for 5 days. Be careful to avoid slipping as your leg may feel stiff. * If a closure device was used on your femoral artery, please see the attached guide regarding care of the device and your leg. * Leave dressing on FOR 24 hours. CARE OF YOUR WRIST INCISION; * Bruising or purple discoloration of the skin near the puncture site is common. * You may shower. * DO NOT submerge wrist. * Leave dressing on FOR 24 hours. [facility] Jan 30, 2019 15:01
--- NOTE | 2019-01-30 15:01 | Discharge Inst-Cardiology ---
Discharge Inst-Cardiac Discharge Medications Continued Medications: Apixaban (Eliquis) 2.5 Mg Tablet 2.5 MG PO BID, TAB Aripiprazole (Aripiprazole) 10 Mg Tablet 10 MG PO DAILY, TAB Azathioprine (Azathioprine) 50 Mg Tablet 100 MG PO HS, TAB TAKES 2 (50MG) TABLETS Azathioprine (Azathioprine) 50 Mg Tablet 150 MG PO DAILY, TAB TAKES 3 (50MG) TABLETS Cholestyramine (Cholestyramine Resin) 5 Gm Powder 4 GM PO DAILY, EA Cyanocobalamin (Cyanocobalamin Injection) 1,000 Mcg/Ml Inj 1000 MCG IM MONTHLY, VIAL Diphenoxylate HCl/Atropine (Lomotil 2.5-0.025 mg Tablet) 1 Each Tablet 1 TAB PO QID PRN for DIARRHEA, TAB Doxazosin Mesylate (Doxazosin Mesylate) 1 Mg Tablet 1 MG PO BID PRN for BLOOD PRESSURE, TAB Ergocalciferol (Vitamin D2) (Vitamin D2) 50,000 Unit Capsule 87980 UNIT PO Mo, CAP Fish Oil/Dha/Epa (Fish Oil 1,200 mg Fish Oil) 1 Each Capsule 1200 MG PO DAILY, CAP Folic Acid (Folic Acid) 0.4 Mg Tablet 0.4 MG PO DAILY, TAB Infliximab (Remicade) 100 Mg Soln 10 MG IV Q6 WEEKS, EA L.acidoph & Paracasei,B.lactis (Probiotic) 1 Each Capsule 1 CAP PO DAILY, CAP Lisinopril/Hydrochlorothiazide (Lisinopril-Hctz 20-25 mg Tab) 1 Each Tablet 1 TAB PO DAILY, TAB LAST FILLED #90 4-30-18 Loperamide HCl (Loperamide) 2 Mg Tablet 2 MG PO TID, TAB Magnesium Oxide (Magnesium Oxide) 400 Mg Tablet 400 MG PO BID, TAB Metoprolol Succinate (Toprol Xl) 100 Mg Tab.er.24h 100 MG PO DAILY, TAB Montelukast Sodium (Montelukast Sodium) 10 Mg Tablet 10 MG PO HS, TAB Multivitamin (Multiple Vitamins) 1 Each Tablet 1 TAB PO DAILY, TAB Pantoprazole Sodium (Pantoprazole Sodium) 40 Mg Tablet.dr 40 MG PO HS, TAB Paroxetine HCl (Paroxetine HCl) 30 Mg Tablet 30 MG PO DAILY, TAB Potassium Citrate (Potassium Citrate ER) 10 Meq Tablet.er 40 MEQ PO BID, TAB Simvastatin (Simvastatin) 10 Mg Tablet 10 MG PO DAILY, TAB Tadalafil (Cialis) 5 Mg Tablet 5 MG PO PRN, TAB Tamsulosin HCl (Tamsulosin HCl) 0.4 Mg Cap.er.24h 0.4 MG PO HS, CAP Tramadol HCl (Tramadol HCl) 50 Mg Tablet 50 MG PO Q6H PRN for PAIN-MODERATE, TAB ALEX BAHENA MD FACP FACC CCDS Jan 30, 2019 15:01
--- NOTE | 2019-01-30 18:53 | CARDIAC CATHETERIZATION ---
DATE OF SERVICE: 01/30/2019 HISTORY OF PRESENT ILLNESS: The patient is a 63-year-old man who has been having episodes of chest discomfort that are suggestive of new onset of angina. He is also known to have paroxysmal atrial fibrillation. Cardiac catheterization was recommended. Informed consent was obtained. PROCEDURE IN DETAIL: She was brought to the cardiac catheterization laboratory in a fasting state. Right groin was prepared and draped in the usual sterile fashion. A 1% lidocaine for local anesthesia. Modified Seldinger technique was used to advance a 5-Emirati sheath in right femoral artery. Angiography of right femoral artery was carried through the sheath. A 5-Emirati JL4 catheter was used for left coronary angiography. A 5-Emirati JR4 catheter was used for right coronary angiography. A 5-Emirati pigtail catheter was used for left heart catheterization, left ventricular angiography. At the end of the procedure, Mynx was used to achieve hemostasis. HEMODYNAMICS: Left ventricular end-diastolic pressure following coronary angiography was 15 mmHg. There is no significant pressure gradient on pullback across the aortic valve. Ascending aortic pressure was 123/80 with a mean of 91 mmHg. CORONARY ANGIOGRAPHY: Left main coronary artery, left anterior descending artery, left circumflex artery, right coronary artery are free of any angiographically significant obstructive disease. There is a minimal ectasia of the right coronary artery. Right coronary artery is dominant. LEFT VENTRICULAR ANGIOGRAPHY: Left ventricular angiography was carried out in the right anterior oblique projection. Global left ventricular systolic function normal. No regional wall motion abnormalities are seen. Left ventricular ejection fraction is approximately 65%. CONCLUSIONS: 1. No angiographically significant coronary artery disease, normal global left ventricular systolic function with an ejection fraction of 60% to 65%. 2. Mild elevation of left ventricular end-diastolic pressure. DISCUSSION AND RECOMMENDATIONS: Based on the results of the study, it appears appropriate to continue a conservative approach. Risk factor modification has been reviewed. Outpatient followup is advised. Job ID: [id number] DocumentID: [id number] Dictated Date: 01/30/2019 14:49:15 Tractor Drill Operator Date: 01/30/2019 18:52:29 Dictated By: ALEX BAHENA MD, MA, FACP, FACC,
== END 2019-01-30 18:45 | disposition home or self-care (01) ==
LOC: CATH 11:50
PROVIDERS: ATTEND Internal Medicine Cardiovascular Disease
DX: R07.89 Other chest pain (principal); I48.0 Paroxysmal atrial fibrillation; I10 Essential (primary) hypertension; G47.33 Obstructive sleep apnea (adult) (pediatric); K50.90 Crohn's disease, unspecified, without complications; E66.9 Obesity, unspecified; Z68.35 Body mass index [BMI] 35.0-35.9, adult; Z79.01 Long term (current) use of anticoagulants; Z79.899 Other long term (current) drug therapy; Z87.891 Personal history of nicotine dependence; Z99.89 Dependence on other enabling machines and devices
CPT/HCPCS: 36415; 80053; 80061; 85027; 85610; 85730; 87081; 93458

== ENCOUNTER → 2019-02-05 | Outpatient (CLI) | payer MEDICARE, OTHER ==
[~2019-02-05] VITALS: Ht 182.9 cm; Wt 118.4 kg
[~2019-02-05] MED LIST changes: +ACETAMINOPHEN 325 MG TABLET PO SCH; +APIX2.5T PO; +ARIP10TA17 PO; +CHOL5POW PO; +DOXA1TAB2 PO; +INFL100V IV; +INFLIXIMAB IV SCH; +LOPE2TAB34 PO; +MAGN400T50 PO; +METO100T6 PO; +NS IV 1000 ML 1,000 ML IV SCH; +NS IV SCH; +PARO30TA3 PO; +TADA5TAB2 PO; +diphenhydrAMINE 50 MG/ML INJ (BENADRYL) IV SCH
[2019-02-05 13:55] VITALS: BP 124/74
== END ==
LOC: SDC 09:15
PROVIDERS: ATTEND Pediatrics
DX: K50.90 Crohn's disease, unspecified, without complications (principal)
CPT/HCPCS: 96361; 96365; 96366; 96374

== ENCOUNTER → 2019-02-27 | Outpatient (CLI) | payer MEDICARE, OTHER ==
[~2019-02-27] MED LIST changes: -ACETAMINOPHEN 325 MG TABLET PO SCH; +CATHETER FLUSH 10 ML SYR IV PRN; +HOLD METFORMIN - RECEIVED CONTRAST 20 ML VIAL IV SCH; -INFLIXIMAB IV SCH; +IOHEXOL 350 MG/ML 100 ML (OMNIPAQUE 350) VIAL IV ONE; +NS 100 ML (IVPB) BAG IV ONE; -NS IV 1000 ML 1,000 ML IV SCH; -NS IV SCH; -diphenhydrAMINE 50 MG/ML INJ (BENADRYL) IV SCH
--- NOTE | 2019-02-27 08:31 | Diagnostic Imaging Report ---
INDICATION: Right hip pain for approximately 2 months. No known injury. TECHNIQUE: 2 views of the right hip. CORRELATION STUDY: None FINDINGS: Images of the hip demonstrate no evidence for acute fracture. Alignment is anatomic. Mild joint space narrowing. The femoral head acetabular relationship is otherwise unremarkable. Minimal bony protuberance superior aspect of the The acetabulum. The bony trabecular pattern is intact. IMPRESSION: 1. Negative for acute bony abnormality of the right hip. Dictated by: Dictated on workstation # [id number]
--- NOTE | 2019-02-27 10:35 | Diagnostic Imaging Report ---
PROCEDURE: CT chest with contrast only. TECHNIQUE: Multiple contiguous axial images were obtained through the chest after administration of intravenous contrast. Auto Exposure Controls were utilized during the CT exam to meet ALARA standards for radiation dose reduction. INDICATION: Three weeks post heart catheterization. Continued chest pain. COMPARISON: 11/14/2018 FINDINGS: There is no significant mediastinal, axillary and/or hilar lymphadenopathy. Heart size upper limits of normal. There is presence of scattered coronary artery calcification. No significant pericardial effusion. Thoracic aortic contour unremarkable. Mild calcification of the arch. Take off of the great vessels appearing unremarkable. Visualized portions of the thyroid gland demonstrates a small low-density nodule in the left lobe. Gastroesophageal junction unremarkable. Increased density retroareolar region favoring probable gynecomastia. Minimal groundglass opacity about the anterior subpleural region in the left upper lobe. The previously noted wispy-like tree in bud density in the left lower lobe adjacent to the fissure plane has resolved. No focal areas of consolidation. Small calcified granuloma in the right middle lobe anteriorly. An additional small noncalcified 3 mm nodule anterior superior right middle lobe (image 54 series 2). In retrospect it may have been present on the prior study but better visualized currently. 5 mm nodule anterolateral right lower lobe (image 56 series 2). Likely stable from prior study. The visualized portions of the upper abdomen demonstrate at least mild severity hepatic steatosis. Cholecystectomy changes. Low-density masses of the kidneys are incompletely characterized and favor probable small cysts. Nonobstructing right renal stones.. The visualized osseous structures demonstrate no acute findings. IMPRESSION: 1. Heart size upper limits of normal with scattered coronary artery calcification. No pericardial effusion. 2. Minimal wispy-like density in the subpleural region of the left upper lobe, unchanged from prior study could be reflective of small area of pneumonitis or atelectasis. The additional areas of tree in bud type infiltrate have resolved. 3. A few scattered small micronodules are present. Not appreciably changed from prior study. Superimposed mild emphysematous change. Followup imaging should be based on Fleischner criteria and correlation to the patient's risk stratification. Dictated by: Dictated on workstation # [id number]
== END ==
LOC: RAD FS 08:10
PROVIDERS: ATTEND Pediatrics
DX: J43.9 Emphysema, unspecified (principal); I25.10 Atherosclerotic heart disease of native coronary artery without angina pectoris; R91.8 Other nonspecific abnormal finding of lung field; M25.551 Pain in right hip; Z98.890 Other specified postprocedural states
CPT/HCPCS: 71260; 73502

== ENCOUNTER → 2019-03-19 | Outpatient (CLI) | payer MEDICARE, OTHER ==
[~2019-03-19] VITALS: Ht 182.9 cm; Wt 118.4 kg
[~2019-03-19] MED LIST changes: +ACETAMINOPHEN 325 MG TABLET ONE; +ACETAMINOPHEN 325 MG TABLET PO SCH; -CATHETER FLUSH 10 ML SYR IV PRN; -HOLD METFORMIN - RECEIVED CONTRAST 20 ML VIAL IV SCH; +INFLIXIMAB IV SCH; -IOHEXOL 350 MG/ML 100 ML (OMNIPAQUE 350) VIAL IV ONE; -NS 100 ML (IVPB) BAG IV ONE; +NS IV 1000 ML 1,000 ML IV SCH; +NS IV SCH; +diphenhydrAMINE 50 MG/ML INJ (BENADRYL) IV SCH; +diphenhydrAMINE 50 MG/ML INJ (BENADRYL) ONE
[2019-03-19 09:40] VITALS: BP 137/81
== END ==
LOC: SDC 09:34
PROVIDERS: ATTEND Pediatrics
DX: K50.90 Crohn's disease, unspecified, without complications (principal)
CPT/HCPCS: 96361; 96365; 96366; 96374

== ENCOUNTER 2019-04-03 09:37 | Observation (INO) | payer MEDICARE, OTHER ==
[~2019-04-03] VITALS: Ht 182.9 cm; Wt 115.2 kg
[~2019-04-03 09:37] MED LIST changes: -ACETAMINOPHEN 325 MG TABLET ONE; -ACETAMINOPHEN 325 MG TABLET PO SCH; -INFLIXIMAB IV SCH; -NS IV 1000 ML 1,000 ML IV SCH; -NS IV SCH; -diphenhydrAMINE 50 MG/ML INJ (BENADRYL) IV SCH; -diphenhydrAMINE 50 MG/ML INJ (BENADRYL) ONE
[2019-04-03 10:21] LABS: HEMATOCRIT 45 % (40-54); HEMOGLOBIN 14.8 G/DL (13.3-17.7); MEAN CORPUSCULAR HEMOGLOBIN 35 PG (25-34); MEAN CORPUSCULAR VOLUME 106 FL (80-99); WHITE BLOOD COUNT 5.2 10^3/uL (4.3-11.0)
[2019-04-03 10:22] LABS: BASOPHILS % (AUTO) 0 % (0-10); EOSINOPHILS # (AUTO) 0.2 10^3/uL (0.0-0.3); EOSINOPHILS % (AUTO) 4 % (0-10); LYMPHOCYTES # (AUTO) 1.8 X 10^3 (1.0-4.0); LYMPHOCYTES % (AUTO) 35 % (12-44); MEAN CORPUSCULAR HGB CONC 33 G/DL (32-36); MEAN PLATELET VOLUME 11.5 FL (7.4-10.4); MONOCYTES # (AUTO) 0.5 X 10^3 (0.0-1.0); MONOCYTES % (AUTO) 10 % (0-12); NEUTROPHILS # (AUTO) 2.6 X 10^3 (1.8-7.8); NEUTROPHILS % (AUTO) 51 % (42-75); PLATELET COUNT 145 10^3/uL (130-400); RED CELL DISTRIBUTION WIDTH 14.7 % (10.0-14.5)
--- NOTE | 2019-04-03 10:32 | Diagnostic Imaging Report ---
Patient History: Atrial fibrillation, irregular heart rate. Technique: Single frontal view of the chest Comparison: 11/18/2018 FINDINGS: The lung volumes are normal. No focal consolidation is seen. No large pleural effusion or pneumothorax is seen. The cardiomediastinal silhouette is normal in size and contour. No acute osseous abnormality is seen. IMPRESSION: No acute pulmonary abnormality seen. Dictated by: Dictated on workstation # [id number]
[2019-04-03 10:37] LABS: PROTHROMBIN TIME PATIENT 13.5 SEC (12.2-14.7)
[2019-04-03 10:38] LABS: BILIRUBIN,URINE NEGATIVE (NEGATIVE); CLARITY,URINE CLEAR; COLOR,URINE YELLOW; GLUCOSE, URINE (UA) NEGATIVE (NEGATIVE); KETONES,URINE NEGATIVE (NEGATIVE); LEUKOCYTE ESTERASE ,URINE NEGATIVE (NEGATIVE); NITRITE,URINE NEGATIVE (NEGATIVE); PROTEIN,URINE NEGATIVE (NEGATIVE); UROBILINOGEN,URINE 0.2 MG/DL (NORMAL)
[2019-04-03 10:41] LABS: BACTERIA,URINE NEGATIVE /HPF; SQUAMOUS EPITHELIAL CELL,UR 0-2 /HPF; WBC,URINE RARE /HPF
[2019-04-03 10:45] LABS: ALANINE AMINOTRANSFERASE 21 U/L (0-55); ALKALINE PHOSPHATASE 100 U/L (40-136); BILIRUBIN,TOTAL 0.7 MG/DL (0.1-1.0); BUN/CREATININE RATIO 14; CALCIUM 9.3 MG/DL (8.5-10.1); CARBON DIOXIDE 27 MMOL/L (21-32); CHLORIDE 99 MMOL/L (98-107); CREATININE SERUM 1.01 MG/DL (0.60-1.30); GFR ESTIMATED > 60; GLUCOSE 174 MG/DL (70-105); MAGNESIUM 1.7 MG/DL (1.8-2.4); POTASSIUM 3.7 MMOL/L (3.6-5.0); SODIUM 139 MMOL/L (135-145)
[2019-04-03 10:46] LABS: TOTAL PROTEIN 7.2 GM/DL (6.4-8.2)
[2019-04-03] MEDS ORDERED: MAGNESIUM OXIDE (MAG-OX)400 MG TAB PO ONE (11:00)
--- NOTE | 2019-04-03 11:22 | ED Cardiac General ---
History of Present Illness General Chief Complaint: Cardiac/General Problems Stated Complaint: RACING HEART Nursing Triage Note: Patient reports he has a history of atrial fibrillation with RVR in 2018, required cardioversion at in [place]. Reports he went to bed yesterday feeling well, woke up at 4:00 am this morning with palpitations and chest pain rated 3/10. Source: patient, family, RN notes reviewed, old records Exam Limitations: no limitations History of Present Illness Date Seen by Provider: Apr 03, 2019 Time Seen by Provider: 09:47 Initial Comments Patient presents c/ c/o heart palpations since approximately 04:00. Concerned he is in Atrial fib. (+) PMH of atrial fib that required cardioversion in November by Dr. Finley. Timing/Duration: 4-6 hours, constant Severity: mild Location: substernal Activities at Onset: sleep Prior CP/Workup: cardiac cath Modifying Factors: improves with lying down; worse with movement; improves with rest NTG SL RESOURCE RECOVERY ENGINEER: No ASA po RESOURCE RECOVERY ENGINEER: No Associated Systoms: Denies Symptoms (x/ as noted.), Chest Pain (mild (3/10)) Allergies and Home Medications Allergies Coded Allergies: morphine (Unverified Allergy, Severe, HEART STOPPED, 11/17/18) hydromorphone HCl (Unverified Allergy, Unknown, HIVES, 11/14/18) oxycodone (Unverified Allergy, Unknown, HIVES, 11/14/18) infliximab-dyyb (Unverified Adverse Reaction, Severe, ATRIAL FIB, 12/05/18) PT WENT INTO A FIB WHILE RECEIVING INFUSION meperidine HCl (Unverified Adverse Reaction, Mild, N/V, 11/17/18) Home Medications Apixaban 2.5 Mg Tablet, 2.5 MG PO BID, (Reported) Aripiprazole 10 Mg Tablet, 10 MG PO DAILY, (Reported) Azathioprine 50 Mg Tablet, 100 MG PO HS, (Reported) TAKES 2 (50MG) TABLETS Azathioprine 50 Mg Tablet, 150 MG PO DAILY, (Reported) TAKES 3 (50MG) TABLETS Cholestyramine 5 Gm Powder, 4 GM PO DAILY, (Reported) Cyanocobalamin 1,000 Mcg/Ml Inj, 1,000 MCG IM MONTHLY, (Reported) Diphenoxylate HCl/Atropine 1 Each Tablet, 1 TAB PO QID PRN for DIARRHEA, (Reported) Doxazosin Mesylate 1 Mg Tablet, 1 MG PO BID PRN for BLOOD PRESSURE, (Reported) Ergocalciferol (Vitamin D2) 50,000 Unit Capsule, 50,000 UNIT PO Mo, (Reported) Fish Oil/Dha/Epa 1 Each Capsule, 1,200 MG PO DAILY, (Reported) Folic Acid 0.4 Mg Tablet, 0.4 MG PO DAILY, (Reported) Infliximab 100 Mg Soln, 10 MG IV Q6 WEEKS, (Reported) L.acidoph & Paracasei,B.lactis 1 Each Capsule, 1 CAP PO DAILY, (Reported) Lisinopril/Hydrochlorothiazide 1 Each Tablet, 1 TAB PO DAILY, (Reported) LAST FILLED #90 4--18 Loperamide HCl 2 Mg Tablet, 2 MG PO TID, (Reported) Magnesium Oxide 400 Mg Tablet, 400 MG PO BID, (Reported) Metoprolol Succinate 100 Mg Tab.er.24h, 100 MG PO DAILY, (Reported) Montelukast Sodium 10 Mg Tablet, 10 MG PO HS, (Reported) Multivitamin 1 Each Tablet, 1 TAB PO DAILY, (Reported) Pantoprazole Sodium 40 Mg Tablet.dr, 40 MG PO HS, (Reported) Paroxetine HCl 30 Mg Tablet, 30 MG PO DAILY, (Reported) Potassium Citrate 10 Meq Tablet.er, 40 MEQ PO BID, (Reported) Simvastatin 10 Mg Tablet, 10 MG PO DAILY, (Reported) Tadalafil 5 Mg Tablet, 5 MG PO PRN, (Reported) Tamsulosin HCl 0.4 Mg Cap.er.24h, 0.4 MG PO HS, (Reported) Tramadol HCl 50 Mg Tablet, 50 MG PO Q6H PRN for PAIN-MODERATE, (Reported) Patient Home Medication List Home Medication List Reviewed: Yes Review of Systems Review of Systems Constitutional: see HPI Cardiovascular: Palpitations All Other Systems Reviewed Negative Unless Noted: Yes (Negative excepted noted.) Past Wppetim-Hpupvj-Uddsct Hx Patient Social History Alcohol Use: Denies Use Recreational Drug Use: No Smoking Status: Former Smoker Type Used: Cigarettes Former Smoker, Quit: Oct 03, 2017 2nd Hand Smoke Exposure: No Recent Foreign Travel: No Contact w/Someone Who Travel: No Recent Infectious Disease Expo: No Recent Hopitalizations: No Physical Abuse: No Sexual Abuse: No Mistreated: No Fear: No Immunizations Up To Date PED Vaccines UTD: Yes Date of Pneumonia Vaccine: Jul 31, 2018 Date of Influenza Vaccine: Aug 11, 2018 Seasonal Allergies Seasonal Allergies: Yes (TAKES ALLERGY SHOTS) Past Medical History Surgeries: Yes (SMALL BOWEL RESECTION) Abdominal, Appendectomy, Bowel Surgery, Gallbladder, Tonsillectomy, Transurethral Resection, Vasectomy Respiratory: Yes (TASH WITH CPAP) Currently Using CPAP: Yes Currently Using BIPAP: No Cardiac: Yes (CARDIOVERSION 11/16/18) Atrial Fibrillation, Hypertension Neurological: No Reproductive Disorders: No Sexually Transmitted Disease: No Genitourinary: Yes (HX ESWL) Benign Prostatic Hyperpl, Kidney Stones Gastrointestinal: Yes (REMICADE (ALLERGY INFLECTRA)) Abdominal Hernia, Crohns Disease Musculoskeletal: No Endocrine: Yes (CUSHINGS DISEASE) Adrenal Disease HEENT: No 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 Heart Disease, Diabetes, Other Conditions/Hx Physical Exam Vital Signs Vital Signs - First Documented 04/03/19 09:41 Temp 98.1 Pulse 110 Resp 14 B/P (MAP) 135/77 (96) Pulse Ox 96 O2 Delivery Room Air Capillary Refill : Less Than 3 Seconds Height, Weight, BMI Height: 6'0" Weight: 250lbs. 0.0oz. [id number]; 35.4 BMI Method:Stated General Appearance: No Apparent Distress, WD/WN, Obese HEENT: Normal ENT Inspection Neck: Normal Inspection Respiratory: No Respiratory Distress Cardiovascular: Tachycardia Rectal: Deferred Neurologic/Psychiatric: Alert, Oriented x3, No Motor/Sensory Deficits, Normal Mood/Affect Progress/Results/Core Measures Results/Orders Lab Results Laboratory Tests Test 04/03/19 09:52 04/03/19 10:22 Range/Units White Blood Count 5.2 4.3-11.0 10^3/uL Red Blood Count 4.28 L 4.35-5.85 10^6/uL Hemoglobin 14.8 13.3-17.7 G/DL Hematocrit 45 40-54 % Mean Corpuscular Volume 106 H 80-99 FL Mean Corpuscular Hemoglobin 35 H 25-34 PG Mean Corpuscular Hemoglobin Concent 33 32-36 G/DL Red Cell Distribution Width 14.7 H 10.0-14.5 % Platelet Count 145 130-400 10^3/uL Mean Platelet Volume 11.5 H 7.4-10.4 FL Neutrophils (%) (Auto) 51 42-75 % Lymphocytes (%) (Auto) 35 12-44 % Monocytes (%) (Auto) 10 0-12 % Eosinophils (%) (Auto) 4 0-10 % Basophils (%) (Auto) 0 0-10 % Neutrophils # (Auto) 2.6 1.8-7.8 X 10^3 Lymphocytes # (Auto) 1.8 1.0-4.0 X 10^3 Monocytes # (Auto) 0.5 0.0-1.0 X 10^3 Eosinophils # (Auto) 0.2 0.0-0.3 10^3/uL Basophils # (Auto) 0.0 0.0-0.1 10^3/uL Prothrombin Time 13.5 12.2-14.7 SEC INR Comment 1.0 0.8-1.4 Activated Partial Thromboplast Time 30 24-35 SEC Sodium Level 139 135-145 MMOL/L Potassium Level 3.7 3.6-5.0 MMOL/L Chloride Level 99 98-107 MMOL/L Carbon Dioxide Level 27 21-32 MMOL/L Anion Gap 13 5-14 MMOL/L Blood Urea Nitrogen 14 7-18 MG/DL Creatinine 1.01 0.60-1.30 MG/DL Estimat Glomerular Filtration Rate > 60 BUN/Creatinine Ratio 14 Glucose Level 174 H 70-105 MG/DL Calcium Level 9.3 8.5-10.1 MG/DL Corrected Calcium 9.3 8.5-10.1 MG/DL Magnesium Level 1.7 L 1.8-2.4 MG/DL Total Bilirubin 0.7 0.1-1.0 MG/DL Aspartate Amino Transf (AST/SGOT) 36 H 5-34 U/L Alanine Aminotransferase (ALT/SGPT) 21 0-55 U/L Alkaline Phosphatase 100 40-136 U/L Troponin I < 0.30 <0.30 NG/ML Pro-B-Type Natriuretic Peptide 54.0 <75.0 PG/ML Total Protein 7.2 6.4-8.2 GM/DL Albumin 4.0 3.2-4.5 GM/DL Urine Color YELLOW Urine Clarity CLEAR Urine pH 6.0 5-9 Urine Specific Sigurd 1.020 1.016-1.022 Urine Protein NEGATIVE NEGATIVE Urine Glucose (UA) NEGATIVE NEGATIVE Urine Ketones NEGATIVE NEGATIVE Urine Nitrite NEGATIVE NEGATIVE Urine Bilirubin NEGATIVE NEGATIVE Urine Urobilinogen 0.2 NORMAL MG/DL Urine Leukocyte Esterase NEGATIVE NEGATIVE Urine RBC (Auto) TRACE H NEGATIVE Urine RBC 2-5 H /HPF Urine WBC RARE /HPF Urine Squamous Epithelial Cells 0-2 /HPF Urine Crystals NONE /LPF Urine Bacteria NEGATIVE /HPF Urine Casts NONE /LPF Urine Mucus NEGATIVE /LPF Urine Culture Indicated NO My Orders Orders - CASSIDY BLANCO DO Ed Iv/Invasive Line Start (04/03/19 10:02) Ekg Tracing (04/03/19 10:02) Cbc With Automated Diff (04/03/19 10:02) Comprehensive Metabolic Panel (04/03/19 10:02) Magnesium (04/03/19 10:02) Protime With Inr (04/03/19 10:02) Partial Thromboplastin Time (04/03/19 10:02) Thyroid Stimulating Hormone (04/03/19 10:02) Troponin I (04/03/19 10:02) Ua Culture If Indicated (04/03/19 10:02) Probnp Fs (04/03/19 10:02) Chest 1 View Ap/Pa Only (04/03/19 10:02) Thyroid Stimulating Hormone (04/03/19 09:52) Magnesium Oxide Tablet (Mag Ox Tablet) (04/03/19 11:00) Vital Signs/I&O 04/03/19 09:41 Temp 98.1 Pulse 110 Resp 14 B/P (MAP) 135/77 (96) Pulse Ox 96 O2 Delivery Room Air Blood Pressure Mean: 96 Initial ECG Impression Date: Apr 03, 2019 Initial ECG Impression Time: 09:47 Initial ECG Rate: 108 Initial ECG Rhythm: S.Tach Initial ECG Impression: Nonspecific Changes Initial ECG Comparisson: No Previous ECG Available Diagnostic Imaging Diagonstic Imaging: Xray Plain Films/CT/US/NM/MRI: chest (nothing acute) Departure Impression Primary Impression: Palpitations Additional Impression: ? PAF Disposition: ADMITTED INPATIENT Condition: Stable Admissions Decision to Admit Reason: Admit from ER (General) Decision to Admit/Date: Apr 03, 2019 Time/Decision to Admit Time: 11:00 Transfer Time Spoke to Accepting Phy: 11:26 Transfer Progress Notes Discussed the patient c/ Dr. Finley @ 11:00. He requested the patient be transferred and admitted to the Hospitalist service. Spoke c/ Dr. Jain, the Hospitalist religious education director for Dr. Cronin, who has accepted the patient in transfer. Transfer Facility: [facility] Method of Transfer: EMS Departure-Patient Inst. Referrals: MK CRONIN MD (PCP/Family) Primary Care Physician CASSIDY BLANCO DO Apr 03, 2019 11:22
--- OUTSIDE RECORDS SUMMARY | 2019-04-03 11:24 | XMS REPORT | Continuity of Care Document ---
Author Organization Unknown Address Unknown Allergies Active Description Code Type Severity Reaction Onset Reported/Identified Relationship to Patient Clinical Status Yes hydromorphone HCl [id number] Drug Allergy Unknown HIVES 11/14/2018 Yes meperidine HCl [id number] Drug Allergy Unknown N/V 11/14/2018 Yes oxycodone [id number] Drug Allergy Unknown HIVES 11/14/2018 Yes morphine [id number] Drug Allergy Severe HEART STOPPED 11/17/2018 Yes meperidine HCl [id number] Drug Allergy Mild N/V 11/17/2018 Yes infliximab-dyyb [id number] Drug Allergy Severe ATRIAL FIB 12/05/2018 Medications [...] DRUG/MEDS/BIOL SUBST, 11/15/2018 BERNJONI LUIZA Ot 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 11/15/2018 BERNJONI [...] DRUG/MEDS/BIOL SUBST, 11/16/2018 VICENTEJONI LUIZA Ot Z79.52 [facility] (CURRENT) USE OF SYSTEMIC STER 11/16/2018 VICENTEJONI [...] Ot N30.00 ACUTE CYSTITIS WITHOUT HEMATURIA 11/21/2018 PRAANY TORO MD Ot R65.21 SEVERE SEPSIS WITH [...] Ot N20.0 CALCULUS OF KIDNEY 11/22/2018 PRANAY TOOR MD Ot N30.00 ACUTE CYSTITIS WITHOUT HEMATURIA 11/22/2018 PRANAY TORO MD Ot R65.21 SEVERE SEPSIS WITH SEPTIC SHOCK 12/05/2018 LAURA ANTOINE MD Ot I10 ESSENTIAL (PRIMARY) HYPERTENSION 12/05/2018 LAURA ANTOINE MD Ot K50.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, UNSPECIFIED, WITHOUT CO 12/05/2018 LAURA ANTOINE MD Ot R07.89 OTHER CHEST PAIN 12/05/2018 LAURA ANTOINE MD Ot Z79.52 [facility] (CURRENT) USE OF SYSTEMIC STER 12/05/2018 LAURA ANTOINE MD Ot Z79.82 [facility] (CURRENT) USE OF ASPIRIN 12/05/2018 LAURA ANTOINE [...] PAIN 12/07/2018 LAURA ANTOINE MD Ot 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 12/07/2018 LAURA ANTOINE MD Ot Z79.82 FUR BLOWING MACHINE OPERATOR (CURRENT) USE OF ASPIRIN 12/07/2018 LAURA ANTOINE [...] Z98.890 OTHER SPECIFIED POSTPROCEDURAL STATES 12/14/2018 MK CRONIN MD Ot K50.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, [...] CHACON FACC, ALI FACP CCDS Ot E87.8 [facility] DISORDERS OF ELECTROLYTE AND FLUID B 01/03/2019 [...] CHACON FACC, ALI FACP CCDS Ot E87.8 OT DISORDERS OF ELECTROLYTE AND FLUID B 01/26/2019 JOSEF CHACON FACC, ALI FACP CCDS Ot G47.33 OBSTRUCTIVE SLEEP APNEA (ADULT) (PEDIATR 01/26/2019 JOSEF CHACON FACC, ALI FACP CCDS Ot I48.0 PAROXYSMAL ATRIAL FIBRILLATION 01/26/2019 JOSEF CHACON FACC, ALI FACP CCDS Ot K50.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, UNSPECIFIED, WITHOUT CO 01/26/2019 JOSEF CHACON FACC, ALI FACP CCDS Ot R06.02 SHORTNESS OF BREATH 01/29/2019 MK CRONIN MD Ot K50.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, UNSPECIFIED, WITHOUT CO 01/30/2019 JOSEF CHACON FACC, ALI FACP CCDS Ot E66.9 OBESITY, UNSPECIFIED 01/30/2019 JOSEF CHACON FACC, ALI FACP CCDS Ot G47.33 OBSTRUCTIVE SLEEP APNEA (ADULT) (PEDIATR 01/30/2019 JOSEF CHACON FACC, ALI FACP CCDS Ot I10 ESSENTIAL (PRIMARY) HYPERTENSION 01/30/2019 JOSEF CHACON FACC, ALI FACP CCDS Ot I48.0 PAROXYSMAL ATRIAL FIBRILLATION 01/30/2019 JOSEF CHACON FACC, ALI FACP CCDS Ot K50.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, UNSPECIFIED, WITHOUT CO 01/30/2019 JOSEF CHACON FACC, ALI FACP CCDS Ot R07.89 OTHER CHEST PAIN 01/30/2019 JOSEF CHACON FACC, ALI FACP CCDS Ot Z68.35 BODY MASS INDEX (BMI) 35.0-35.9, ADULT 01/30/2019 JOSEF CHACON FACC, ALI FACP CCDS Ot Z79.01 [facility] (CURRENT) USE OF ANTICOAGULANT 01/30/2019 JOSEF CHACON FACC, ALI FACP CCDS Ot Z79.899 OTHER [facility] (CURRENT) DRUG THERAPY 01/30/2019 JOSEF CHACON FACC, ALI FACP CCDS Ot Z87.891 PERSONAL HISTORY OF NICOTINE DEPENDENCE 01/30/2019 JOSEF CHACON FACC, ALI FACP CCDS Ot Z99.89 DEPENDENCE ON OTHER ENABLING MACHINES AN 02/01/2019 JOSEF CHACON FACC, ALI FACP CCDS Ot E66.9 OBESITY, UNSPECIFIED 02/01/2019 JOSEF CHACON FACC, ALI FACP CCDS Ot G47.33 OBSTRUCTIVE SLEEP APNEA (ADULT) (PEDIATR 02/01/2019 JOSEF CHACON FACC, ALI FACP CCDS Ot I10 ESSENTIAL (PRIMARY) HYPERTENSION 02/01/2019 JOSEF CHACON FACC, ALI FACP CCDS Ot I48.0 PAROXYSMAL ATRIAL FIBRILLATION 02/01/2019 JOSEF CHACON FACC, ALI FACP CCDS Ot K50.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, UNSPECIFIED, WITHOUT CO 02/01/2019 JOSEF CHACON FACC, ALI FACP CCDS Ot R07.89 OTHER CHEST PAIN 02/01/2019 JOSEF CHACON FACC, ALI FACP CCDS Ot Z68.35 BODY MASS INDEX (BMI) 35.0-35.9, ADULT 02/01/2019 JOSEF CHACON FACC, ALI FACP CCDS Ot Z79.01 [facility] (CURRENT) USE OF ANTICOAGULANT 02/01/2019 JOSEF CHACON FACC, ALI FACP CCDS Ot Z79.899 OTHER FUR BLOWING MACHINE OPERATOR (CURRENT) DRUG THERAPY 02/01/2019 JOSEF CHACON FACC, ALI FACP CCDS Ot Z87.891 PERSONAL HISTORY OF NICOTINE DEPENDENCE 02/01/2019 JOSEF CHACON FACC, ALI FACP CCDS Ot Z99.89 DEPENDENCE ON OTHER ENABLING MACHINES AN 02/05/2019 MK CRONIN MD Ot 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 02/07/2019 MK CRONIN MD Ot K50.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, UNSPECIFIED, WITHOUT CO 02/28/2019 MK CRONIN MD Ot I25.10 ATHSCL HEART DISEASE OF [place] CORONARY 02/28/2019 MK CRONIN MD Ot J43.9 EMPHYSEMA, UNSPECIFIED 02/28/2019 MK CRONIN MD Ot M25.551 PAIN IN RIGHT HIP 02/28/2019 MK CRONIN MD Ot R91.8 OTHER NONSPECIFIC ABNORMAL FINDING OF SACHIN 02/28/2019 MK CRONIN MD Ot Z98.890 OTHER SPECIFIED POSTPROCEDURAL STATES 03/01/2019 MK CRONIN MD Ot K50.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, UNSPECIFIED, WITHOUT CO 03/19/2019 MK CRONIN MD Ot 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 03/19/2019 MK CRONIN MD Ot 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 03/22/2019 MK CRONIN MD Ot I25.10 ATHSCL HEART DISEASE OF [place] CORONARY 03/22/2019 MK CRONIN MD, Ot J43.9 EMPHYSEMA, UNSPECIFIED 03/22/2019 MK CRONIN MD, Ot M25.551 PAIN IN RIGHT HIP 03/22/2019 MK CRONIN MD, Ot R91.8 OTHER NONSPECIFIC ABNORMAL FINDING OF [place] 03/22/2019 MK CRONIN MD, Ot Z98.890 OTHER SPECIFIED POSTPROCEDURAL STATES 03/22/2019 MK CRONIN MD, Ot K50.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, UNSPECIFIED, WITHOUT CO Procedures Code Description Performed By Performed On [id number] ZOROASTRIANISM OF CARDIAC RHYTHM, SINGLE 11/17/2018 Results Test [...] Automated erythrocyte mean corpuscular hemoglobin concentration measurement (mass/volume) 33 g/dL 32-36 Automated erythrocyte distribution width ratio 13.5 % 10.0- 14.5 Automated blood platelet count (count/volume) 167 10*3/uL [...] Blood monocytes automated count (number/volume) 0.8 10*3 0.0- 1.0 Automated eosinophil count 0.2 10*3/uL 0.0-0.3 Automated [...] Serum or plasma aspartate aminotransferase measurement (enzymatic activity/volume) 35 U/L 5-34 Serum or plasma alanine aminotransferase measurement (enzymatic activity/volume) 33 U/L 0-55 Serum or plasma protein measurement (mass/volume) 7.6 g/dL 6.4-8.2 Serum or plasma albumin measurement (mass/volume) 4.2 g/dL 3.2-4.5 CALCIUM CORRECTED 9.7 mg/dL 8.5-10.1 Magnesium - 11/14/18 19:42 Magnesium 1.9 mg/dL 1.8-2.4 Serum or plasma troponin i.cardiac measurement (mass/volume) - 11/14/18 19:42 Serum or plasma troponin i.cardiac measurement (mass/volume) < ng/mL <0.028 Myoglobin, serum - 11/14/18 19:42 Myoglobin, serum 83.2 ng/mL 10.0-92.0 Fibrin D-dimer FEU measurement in platelet poor plasma (mass/volume) - 11/14/18 19:42 Fibrin D-dimer FEU measurement in platelet poor plasma (mass/volume) 0.56 ug/mL 0.00-0.49 Serum or plasma amylase measurement (enzymatic activity/volume) - 11/14/18 19:42 Serum or plasma amylase measurement (enzymatic activity/volume) 107 U/L 25-125 Lipase - 11/14/18 19:42 Lipase 40 U/L 8-78 Serum or plasma lithium measurement (moles/volume) - 11/14/18 19:42 BNP level 19.2 pg/mL <100.0 Serum or plasma troponin i.cardiac measurement (mass/volume) - 11/14/18 21:48 Serum or plasma troponin i.cardiac measurement (mass/volume) < ng/mL <0.028 Complete blood count (CBC) with automated [...] Automated erythrocyte mean corpuscular hemoglobin concentration measurement (mass/volume) 33 g/dL 32-36 Automated erythrocyte distribution width ratio 13.6 % 10.0- 14.5 Automated blood platelet count (count/volume) 130 10*3/uL [...] Blood monocytes automated count (number/volume) 1.4 10*3 0.0- 1.0 Automated eosinophil count 0.1 10*3/uL 0.0-0.3 Automated blood basophil count (count/volume) 0.1 10*3/uL 0.0-0.1 Blood lactic acid measurement (moles/volume) - 11/16/18 12:55 Blood lactic acid measurement (moles/volume) 1.92 mmol/L 0.50- 2.00 PT panel in platelet poor plasma by [...] Serum or plasma aspartate aminotransferase measurement (enzymatic activity/volume) 43 U/L 5-34 Serum or plasma alanine aminotransferase measurement (enzymatic activity/volume) 32 U/L 0-55 Serum or plasma protein measurement (mass/volume) 6.9 g/dL 6.4-8.2 Serum or plasma albumin measurement (mass/volume) 3.7 g/dL 3.2-4.5 CALCIUM CORRECTED 8.7 mg/dL 8.5-10.1 Serum or plasma troponin i.cardiac measurement (mass/volume) - 11/16/18 12:55 Serum or plasma troponin i.cardiac measurement (mass/volume) < ng/mL <0.028 Blood manual differential performed detection - 11/16/18 12:55 Blood monocytes/100 leukocytes 4 % NRG Manual blood segmented neutrophils/100 leukocytes 72 % [...] plasma creatine kinase measurement (enzymatic activity/volume) - 11/16/18 12:55 Serum or plasma creatine kinase measurement (enzymatic activity/volume) 201 U/L 30-200 Bacterial blood culture - 11/16/18 12:55 QUANTITY OF GROWTH Isolated [facility] Bacterial blood culture [id number] [facility] Complete urinalysis with reflex to culture - 11/16/18 13:20 Urine color determination YELLOW NRG Urine clarity determination SLIGHTLY CLOUDY NR Urine pH measurement by test strip 5 5-9 Specific gravity of urine by test strip 1.030 1.016-1.022 Urine protein assay by test strip, [...] sediment leukocyte count by microscopy (number/high power field) [HPF] NRG Bacteria detection in urine sediment [...] resistant Staphylococcus aureus (MRSA) screening culture - 11/16/18 21:00 Methicillin resistant Staphylococcus aureus (MRSA) screening [...] Automated erythrocyte mean corpuscular hemoglobin concentration measurement (mass/volume) 33 g/dL 32-36 Automated erythrocyte distribution width ratio 13.7 % 10.0- 14.5 Automated blood platelet count (count/volume) 90 10*3/uL 130- 400 Automated blood platelet mean volume measurement 11.1 [...] Blood monocytes automated count (number/volume) 0.6 10*3 0.0- 1.0 Automated eosinophil count 0.0 10*3/uL 0.0-0.3 Automated [...] Serum or plasma aspartate aminotransferase measurement (enzymatic activity/volume) 32 U/L 5-34 Serum or plasma alanine aminotransferase measurement (enzymatic activity/volume) 25 U/L 0-55 Serum or plasma protein [...] Blood lactic acid measurement (moles/volume) 0.76 mmol/L 0.50- 2.00 C DIFFICILE AG + TOXIN A/B. - 11/17/18 12:10 RESULTS NEGATIVE FOR ANTIGEN AND TOXIN A/B NRG Serum or plasma troponin i.cardiac measurement (mass/volume) - 11/17/18 12:45 Serum or plasma troponin i.cardiac measurement (mass/volume) < ng/mL <0.028 Serum or plasma troponin i.cardiac measurement (mass/volume) - 11/17/18 17:49 Serum or plasma troponin i.cardiac measurement (mass/volume) < ng/mL <0.028 Serum or plasma troponin i.cardiac measurement (mass/volume) - 11/17/18 23:59 Serum or plasma troponin i.cardiac measurement (mass/volume) < ng/mL <0.028 Complete blood count (CBC) with automated [...] Automated erythrocyte mean corpuscular hemoglobin concentration measurement (mass/volume) 33 g/dL 32-36 Automated erythrocyte distribution width ratio 13.9 % 10.0- 14.5 Automated blood platelet count (count/volume) 81 10*3/uL 130- 400 Automated blood platelet mean volume measurement 11.1 [...] Blood monocytes automated count (number/volume) 0.4 10*3 0.0- 1.0 Automated eosinophil count 0.0 10*3/uL 0.0-0.3 Automated [...] Automated erythrocyte mean corpuscular hemoglobin concentration measurement (mass/volume) 33 g/dL 32-36 Automated erythrocyte distribution width ratio 14.0 % 10.0- 14.5 Automated blood platelet count (count/volume) 73 10*3/uL 130- 400 Automated blood platelet mean volume measurement 11.0 [...] Blood monocytes automated count (number/volume) 0.4 10*3 0.0- 1.0 Automated eosinophil count 0.1 10*3/uL 0.0-0.3 Automated [...] Automated erythrocyte mean corpuscular hemoglobin concentration measurement (mass/volume) 33 g/dL 32-36 Automated erythrocyte distribution width ratio 13.9 % 10.0- 14.5 Automated blood platelet count (count/volume) 82 10*3/uL 130- 400 Automated blood platelet mean volume measurement 10.7 [...] Blood monocytes automated count (number/volume) 0.4 10*3 0.0- 1.0 Automated eosinophil count 0.1 10*3/uL 0.0-0.3 Automated [...] Automated erythrocyte mean corpuscular hemoglobin concentration measurement (mass/volume) 34 g/dL 32-36 Automated erythrocyte distribution width ratio 13.7 % 10.0- 14.5 Automated blood platelet count (count/volume) 99 10*3/uL 130- 400 Automated blood platelet mean volume measurement 10.5 [...] Blood monocytes automated count (number/volume) 0.7 10*3 0.0- 1.0 Automated eosinophil count 0.2 10*3/uL 0.0-0.3 Automated [...] Automated erythrocyte mean corpuscular hemoglobin concentration measurement (mass/volume) 33 g/dL 32-36 Automated erythrocyte distribution width ratio 13.9 % 10.0- 14.5 Automated blood platelet count (count/volume) 131 10*3/uL [...] Blood monocytes automated count (number/volume) 0.7 10*3 0.0- 1.0 Automated eosinophil count 0.2 10*3/uL 0.0-0.3 Automated [...] Serum or plasma aspartate aminotransferase measurement (enzymatic activity/volume) 30 U/L 5-34 Serum or plasma alanine aminotransferase measurement (enzymatic activity/volume) 22 U/L 0-55 Serum or plasma protein [...] Automated erythrocyte mean corpuscular hemoglobin concentration measurement (mass/volume) 33 g/dL 32-36 Automated erythrocyte distribution width ratio 14.6 % 10.0- 14.5 Automated blood platelet count (count/volume) 179 10*3/uL [...] Blood monocytes automated count (number/volume) 1.2 10*3 0.0- 1.0 Automated eosinophil count 0.2 10*3/uL 0.0-0.3 Automated [...] detection in urine sediment by light microscopy TRACE-I NEGATIVE Urine ketones detection by automated test [...] sediment leukocyte count by microscopy (number/high power field) NONE NRG Bacteria detection in urine sediment [...] - 12/20/18 11:40 Magnesium 1.9 mg/dL 1.8-2.4 Automated blood complete blood count (hemogram) panel - 01/30/19 12:08 Blood leukocytes automated count (number/volume) 6.3 10*3/uL 4.3-11.0 Blood erythrocytes automated count (number/volume) 3.98 10*6/uL 4.35-5.85 Venous blood hemoglobin measurement (mass/volume) 13.9 g/dL 13.3-17.7 Blood hematocrit (volume fraction) 42 % 40-54 Automated erythrocyte mean corpuscular volume 105 [foz_us] 80-99 Automated erythrocyte mean corpuscular hemoglobin (mass per erythrocyte) 35 pg 25-34 Automated erythrocyte mean corpuscular hemoglobin concentration measurement (mass/volume) 33 g/dL 32-36 Automated erythrocyte distribution width ratio 15.6 % 10.0- 14.5 Automated blood platelet count (count/volume) 131 10*3/uL 130-400 Automated blood platelet mean volume measurement 11.7 [foz_us] 7.4-10.4 PT panel in platelet poor plasma by coagulation assay - 01/30/19 12:08 Prothrombin time (PT) in platelet poor plasma by coagulation assay 13.5 s 12.2-14.7 INR in platelet poor plasma or blood by coagulation assay 1.0 0.8-1.4 Activated partial thromboplastin time (aPTT) in platelet poor plasma bycoagulation assay - 01/30/19 12:08 Activated partial thromboplastin time (aPTT) in platelet poor plasma bycoagulation assay 32 s 24-35 Comprehensive metabolic panel - 01/30/19 12:08 Serum or plasma sodium measurement (moles/volume) 144 mmol/L 135-145 Serum or plasma potassium measurement (moles/volume) 3.7 mmol/L 3.6-5.0 Serum or plasma chloride measurement (moles/volume) 109 mmol/L 98-107 Carbon dioxide 23 mmol/L 21-32 Serum or plasma anion gap determination (moles/volume) 12 mmol/L 5-14 Serum or plasma urea nitrogen measurement (mass/volume) 12 mg/dL 7-18 Serum or plasma creatinine measurement (mass/volume) 0.89 mg/dL 0.60-1.30 Serum or plasma urea nitrogen/creatinine mass ratio 13 NRG Serum or plasma creatinine measurement with calculation of estimated glomerular filtration rate > NRG Serum or plasma glucose measurement (mass/volume) 102 mg/dL 70-105 Serum or plasma calcium measurement (mass/volume) 9.3 mg/dL 8.5-10.1 Serum or plasma total bilirubin measurement (mass/volume) 1.0 mg/dL 0.1-1.0 Serum or plasma alkaline phosphatase measurement (enzymatic activity/volume) 65 U/L 40-136 Serum or plasma aspartate aminotransferase measurement (enzymatic activity/volume) 31 U/L 5-34 Serum or plasma alanine aminotransferase measurement (enzymatic activity/volume) 19 U/L 0-55 Serum or plasma protein measurement (mass/volume) 7.3 g/dL 6.4-8.2 Serum or plasma albumin measurement (mass/volume) 3.8 g/dL 3.2-4.5 CALCIUM CORRECTED 9.5 mg/dL 8.5-10.1 Lipid 1996 panel - 01/30/19 12:08 Serum or plasma triglyceride measurement (mass/volume) 160 mg/dL <150 Serum or plasma cholesterol measurement (mass/volume) 135 mg/dL < 200 Serum or plasma cholesterol in HDL measurement (mass/volume) 48 mg/dL 40-60 Cholesterol in LDL [mass/volume] in serum or plasma by direct assay 71 mg/dL 1-129 Serum or plasma cholesterol in VLDL measurement (mass/volume) 32 mg/dL 5-40 Methicillin resistant Staphylococcus aureus (MRSA) screening culture - 01/30/19 12:08 Methicillin resistant Staphylococcus aureus (MRSA) screening culture NEG NRG Encounters ACCT No. Visit Date/Time Discharge Status Pt. Type Provider Facility Loc./Unit Complaint [id number] 03/19/2019 09:34:00 03/19/2019 23:59:59 [facility] Cait CRONIN MD, MK Velazquez [facility] CROHNS DISEASE [id number] 02/27/2019 08:10:00 02/27/2019 23:59:59 CLS Outpatient MK CRONIN MD Via [facility] RAD FS CHEST WALL PAIN [id number] 02/05/2019 09:15:00 02/05/2019 23:59:59 CLS Outpatient MK CRONIN MD [facility] CROHNS DISEASE [id number] 01/30/2019 11:50:00 01/30/2019 18:45:00 DIS Outpatient JOSEF CHACON FACC, ALI FACP CCDS [facility] CATH CHEST PAIN,PAF,SOB [id number] 01/02/2019 07:46:00 01/02/2019 23:59:59 CLS Outpatient JOSEF CHACON FACC, ALI FACP CCDS [facility] CARD PAF [id number] 12/25/2018 09:39:00 12/25/2018 23:59:59 CLS Outpatient MK CRONIN MD [facility] CROHNS DISEASE [id number] 12/05/2018 08:41:00 12/05/2018 11:54:00 DIS Emergency LAURA ANTOINE MD [facility] ER FS CHEST PAIN; ABD PAIN [id number] 11/16/2018 16:30:00 11/22/2018 13:26:00 DIS Inpatient PRANAY TORO MD [facility] 4TH UTI,SMALL BOWEL OBSTRUCTION,SEVERE SEPSIS [id number] 11/14/2018 18:51:00 11/15/2018 00:46:00 DIS Emergency LUIZA JUÁREZ [facility] ER CHEST PAINS [id number] 11/13/2018 09:40:00 11/13/2018 23:59:59 CLS Outpatient MK CRONIN MD [facility] CROHNS DISEASE [id number] 04/30/2019 10:00:00 PEN Preadmit MK CRONIN MD [facility] CROHNS DISEASE [id number] 12/20/2018 12:12:00 Document Registration
[2019-04-03] MEDS ORDERED: NS IV 1000 ML 1,000 ML ONE (11:30)
[2019-04-03] MEDS: NS IV 1000 ML 1,000 ML IV SCH ×3 (11:37→17:44)
--- OUTSIDE RECORDS SUMMARY | 2019-04-03 11:39 | XMS REPORT | Continuity of Care Document ---
Author Organization Unknown Address Unknown Allergies Active Description Code Type Severity Reaction Onset Reported/Identified Relationship to Patient Clinical Status Yes hydromorphone HCl [id number] Drug Allergy Unknown HIVES 11/14/2018 Yes meperidine HCl [id number] Drug Allergy Unknown N/V 11/14/2018 Yes oxycodone [id number] Drug Allergy Unknown HIVES 11/14/2018 Yes morphine [id number] Drug Allergy Severe HEART STOPPED 11/17/2018 Yes meperidine HCl [id number] Drug Allergy Mild N/V 11/17/2018 Yes infliximab-dyyb [id number] Drug Allergy Severe ATRIAL FIB 12/05/2018 Medications [...] DRUG/MEDS/BIOL SUBST, 11/15/2018 BERNJONI LUIZA Ot 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 11/15/2018 BERNJONI [...] DRUG/MEDS/BIOL SUBST, 11/16/2018 VICENTEJONI LUIZA Ot Z79.52 GROUP HOME (CURRENT) USE OF SYSTEMIC STER 11/16/2018 VICENTEJONI [...] UNSPECIFIED 11/21/2018 PRANAY TORO MD Ot E24.9 MXAIME'S SYNDROME, UNSPECIFIED 11/21/2018 PRANAY TORO MD Ot [...] PAIN 12/05/2018 LAURA ANTOINE MD Ot Z79.52 GROUP HOME (CURRENT) USE OF SYSTEMIC STER 12/05/2018 LAURA ANTOINE MD Ot Z79.82 [facility] HOME (CURRENT) USE OF ASPIRIN 12/05/2018 LAURA ANTOINE [...] PAIN 12/07/2018 LAURA ANTOINE MD Ot 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 12/07/2018 LAURA ANTOINE MD Ot Z79.82 NECK BAND SETTER (CURRENT) USE OF ASPIRIN 12/07/2018 LAURA ANTOINE [...] CHACON FACC, ALI FACP CCDS Ot E87.8 [facility] DISORDERS OF ELECTROLYTE AND FLUID B 01/03/2019 [...] CHACON FACC, ALI FACP CCDS Ot Z79.01 GROUP HOME (CURRENT) USE OF ANTICOAGULANT 01/30/2019 JOSEF CHACON FACC, ALI FACP CCDS Ot Z79.899 OTHER GROUP HOME (CURRENT) DRUG THERAPY 01/30/2019 JOSEF CHACON FACC, [...] CHACON FACC, ALI FACP CCDS Ot Z79.01 GROUP HOME (CURRENT) USE OF ANTICOAGULANT 02/01/2019 JOSEF CHACON FACC, ALI FACP CCDS Ot Z79.899 OTHER NECK BAND SETTER (CURRENT) DRUG THERAPY 02/01/2019 JOSEF CHACON FACC, [...] MD Ot I25.10 ATHSCL HEART DISEASE OF [place] CORONARY 02/28/2019 MK CRONIN MD Ot J43.9 [...] MD Ot I25.10 ATHSCL HEART DISEASE OF [place] CORONARY 03/22/2019 MK CRONIN MD, Ot J43.9 EMPHYSEMA, UNSPECIFIED 03/22/2019 MK CRONIN MD, Ot M25.551 PAIN IN RIGHT HIP 03/22/2019 MK CRONIN MD, Ot R91.8 OTHER NONSPECIFIC ABNORMAL FINDING OF SACHIN 03/22/2019 MK CRONIN MD, Ot Z98.890 OTHER SPECIFIED POSTPROCEDURAL STATES 03/22/2019 MK CRONIN MD, Ot K50.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, UNSPECIFIED, WITHOUT CO Procedures Code Description Performed By Performed On [id number] SCIENTOLOGIST OF CARDIAC RHYTHM, SINGLE 11/17/2018 Results [...] - 11/16/18 12:55 QUANTITY OF GROWTH Isolated [facility] Bacterial blood culture [id number] [facility] Complete urinalysis with reflex to culture - [...] Status Pt. Type Provider Facility Loc./Unit Complaint [id number] 03/19/2019 09:34:00 03/19/2019 23:59:59 [facility] Cait CRONIN MD, MK Velazquez [facility] CROHNS DISEASE [id number] 02/27/2019 08:10:00 02/27/2019 23:59:59 CLS Outpatient MK CRONIN MD Via [facility] RAD FS CHEST WALL PAIN [id number] 02/05/2019 09:15:00 02/05/2019 23:59:59 CLS Outpatient MK CRONIN MD [facility] CROHNS DISEASE [id number] 01/30/2019 11:50:00 01/30/2019 18:45:00 DIS Outpatient JOSEF CHACON FACC, ALI FACP CCDS [facility] CATH CHEST PAIN,PAF,SOB [id number] 01/02/2019 07:46:00 01/02/2019 23:59:59 CLS Outpatient JOSEF CHACON FACC, ALI FACP CCDS [facility] CARD PAF [id number] 12/25/2018 09:39:00 12/25/2018 23:59:59 CLS Outpatient MK CRONIN MD [facility] CROHNS DISEASE [id number] 12/05/2018 08:41:00 12/05/2018 11:54:00 DIS Emergency LAURA ANTOINE MD [facility] ER FS CHEST PAIN; ABD PAIN [id number] 11/16/2018 16:30:00 11/22/2018 13:26:00 DIS Inpatient PRANAY TORO MD [facility] 4TH UTI,SMALL BOWEL OBSTRUCTION,SEVERE SEPSIS [id number] 11/14/2018 18:51:00 11/15/2018 00:46:00 DIS Emergency LUIZA JUÁREZ [facility] ER CHEST PAINS [id number] 11/13/2018 09:40:00 11/13/2018 23:59:59 CLS Outpatient MK CRONIN MD [facility] CROHNS DISEASE [id number] 04/30/2019 10:00:00 PEN Preadmit MK CRONIN MD [facility] CROHNS DISEASE [id number] 12/20/2018 12:12:00 Document Registration
--- NOTE | 2019-04-03 12:57 | History & Physical-Hospitalist ---
History of Present Illness HPI/Chief Complaint Pt is a 63yoCM known to me from recent admission who presented to the [facility] ER with complaints of palpitations. He has a history of paroxysmal AF and underwent cardioversion with Dr Finley earlier this yet. He states he felt well until this morning when he awoke with a racing heart rate. He states it felt irregular and his heart rate was up to 140. He also had some mild chest pain and some SOB with this. He thought he was in a-fib so he presented to the ER for evaluation. Per their EKG he was just in sinus tach but his rate would shoot up to the 140s on the monitor during his stay there. He was admitted for ob servation. Source: patient Date Seen 04/03/19 Time Seen by a Provider: 12:52 Attending Physician Pranay Jain MD PCP Orville Willard MD Referring Physician Date of Admission Apr 03, 2019 at 11:33 am Home Medications & Allergies Home Medications Reviewed patient Home Medication Reconciliation performed by pharmacy medication reconciliations orthotic finish grinding technician and/or nursing. Patients Allergies have been reviewed. Allergies Allergies Coded Allergies morphine (Unverified Allergy, Severe, HEART STOPPED, 11/17/18) hydromorphone HCl (Unverified Allergy, Unknown, HIVES, 11/14/18) oxycodone (Unverified Allergy, Unknown, HIVES, 11/14/18) infliximab-dyyb (Unverified Adverse Reaction, Severe, ATRIAL FIB, 12/05/18) PT WENT INTO A FIB WHILE RECEIVING INFUSION meperidine HCl (Unverified Adverse Reaction, Mild, N/V, 11/17/18) Past Mvzojoo-Bqlqwr-Hmrdhj Hx Past Med/Social Hx: Reviewed Nursing Past Med/Soc Hx Patient Social History Alcohol Use: Denies Use Recreational Drug Use: No Smoking Status: Former Smoker Former Smoker, Quit: Oct 03, 2017 Type Used: Cigarettes 2nd Hand Smoke Exposure: No Recent Foreign Travel: No Contact w/other who traveled: No Recent Hopitalizations: No Recent Infectious Disease Expo: No Immunizations Up To Date Pediatric: Yes Date of Pneumonia Vaccine: Jul 31, 2018 Date of Influenza Vaccine: Aug 11, 2018 Seasonal Allergies Seasonal Allergies: Yes (TAKES ALLERGY SHOTS) Past Medical History Surgeries: Abdominal, Appendectomy, Bowel Surgery, Gallbladder, Tonsillectomy, Transurethral Resection, Vasectomy Currently Using CPAP: Yes Currently Using BIPAP: No Cardiac: Atrial Fibrillation, Hypertension Reproductive: No Sexually Transmitted Disease: No Genitourinary: Benign Prostatic Hyperpl, Kidney Stones Gastrointestinal: Abdominal Hernia, Crohns Disease Endocrine: Adrenal Disease Cancer: Skin Did You Recieve Any Treatments: Yes What Type of Treatment Did You: Surgical Intervention Psychosocial: Depression History of Blood Disorders: No Family History Patient reports no known family medical history. Heart Disease, Diabetes, Other Conditions/Hx Review of Systems Constitutional: no symptoms reported EENTM: no symptoms reported Respiratory: see HPI, short of breath Cardiovascular: see HPI, chest pain, palpitations Gastrointestinal: no symptoms reported Genitourinary: no symptoms reported Musculoskeletal: no symptoms reported Skin: no symptoms reported Psychiatric/Neurological: No Symptoms Reported Physical Exam Physical Exam Vital Signs Vital Signs - First Documented 04/03/19 09:41 Temp 98.1 Pulse 110 Resp 14 B/P (MAP) 135/77 (96) Pulse Ox 96 O2 Delivery Room Air Capillary Refill : Less Than 3 Seconds Height, Weight, BMI Height: 6'0" Weight: 250lbs. 0.0oz. [id number]; 35.4 BMI Method:Stated General Appearance: No Apparent Distress, WD/WN HEENT: Normal ENT Inspection, Moist Mucous Membranes; No Scleral Icterus (L), No Scleral Icterus (R) Neck: Normal Inspection, Supple Respiratory: Lungs Clear, No Accessory Muscle Use, No Respiratory Distress Cardiovascular: No Murmur, Normal Peripheral Pulses, Irregularly Irregular Gastrointestinal: Normal Bowel Sounds, Non Tender, Soft Extremity: Non Tender, No Calf Tenderness, No Pedal Edema Neurologic/Psychiatric: Alert, Oriented x3, No Motor/Sensory Deficits, Normal Mood/Affect Skin: Normal Color, Warm/Dry Results Results/Procedures Labs Laboratory Tests 04/03/19 09:52 Patient resulted labs reviewed. Imaging: Reviewed Imaging Report Assessment/Plan Admission Diagnosis Paroxysmal a-fib Admission Status: Observation Diagnosis/Problems Diagnosis/Problems (1) PAF (paroxysmal atrial fibrillation) Assessment & Plan: Cardiology consulted, appreciate recs Mag replaced in ER Check TSH Monitor on Telemetry Sounds irregular on exam but appears to have p waves on telemetry Continue eliquis and toprol (2) Crohn disease Status: Chronic Assessment & Plan: Doing well on Remicaid No complaints Qualifiers: Gastrointestinal tract location: unspecified location Digestive disease complication type: unspecified complication Qualified Codes: K50.919 - Crohn's disease, unspecified, with unspecified complications (3) Depression Status: Chronic Assessment & Plan: Continue home meds Qualifiers: Depression Type: unspecified Qualified Codes: F32.9 - Major depressive disorder, single episode, unspecified (4) BPH (benign prostatic hyperplasia) Status: Chronic Assessment & Plan: Continue home meds Qualifiers: Lower urinary tract symptom presence: unspecified whether lower urinary tract symptoms present Qualified Codes: N40.0 - Benign prostatic hyperplasia without lower urinary tract symptoms Clinical Quality Measures AMI/AHF: ASA po Prior to arrival: PRANAY Crook MD Apr 03, 2019 12:57 pm
[2019-04-03] MEDS ORDERED: CATHETER FLUSH 10 ML SYR IV PRN (13:15)
[2019-04-03 13:21] VITALS: BP 114/85
--- NOTE | 2019-04-03 13:52 | Consultation-Cardiology ---
HPI-Cardiology Cardiology Consultation: Date of Consultation 04/03/19 Time Seen by a Provider: 13:30 Date of Admission 04-03-19 Attending Physician Tamica Jain MD Admitting Physician Orville Willard MD Consulting Physician Mariposa Finley MD HPI: Chief Complaint: Palpitations Review of Systems-Cardiology Review of Systems Constitutional: No chills, No fever, No malaise Eyes: No vision change Ears/Nose/Throat: No epistaxis, No recent hearing loss Respiratory: As described under HPI Cardiovascular: As described under HPI Gastrointestinal: No constipation, No diarrhea, No nausea, No vomiting Genitourinary: No dysuria, No hematuria Musculoskeletal: no symptoms reported Skin: No rash on exposed areas, No ulcerations on exposed areas Psychiatric/Neurological: No anxiety, No depression, No seizure, No focal weakness, No syncope Hematologic: No bleeding abnormalities All Other Systems Reviewed Negative Unless Noted: Yes (Negative excepted noted.) DIL-Gihvjz-Clufof Hx Patient Social History Alcohol Use: Denies Use Recreational Drug Use: No Smoking Status: Former Smoker Type Used: Cigarettes 2nd Hand Smoke Exposure: No Recent Foreign Travel: No Recent Infectious Disease Expo: No Hospitalization with Isolation: Denies Immunizations Up To Date Date of Pneumonia Vaccine: Apr 03, 2018 Date of Influenza Vaccine: Aug 11, 2018 Past Medical History PMH As described under Assessment. Family Medical History Family History: Patient reports no known family medical history. Allergies and Home Medications Allergies Coded Allergies: morphine (Unverified Allergy, Severe, HEART STOPPED, 11/17/18) hydromorphone HCl (Unverified Allergy, Unknown, HIVES, 11/14/18) oxycodone (Unverified Allergy, Unknown, HIVES, 11/14/18) infliximab-dyyb (Unverified Adverse Reaction, Severe, ATRIAL FIB, 12/05/18) PT WENT INTO A FIB WHILE RECEIVING INFUSION meperidine HCl (Unverified Adverse Reaction, Mild, N/V, 11/17/18) Home Medications Apixaban 2.5 Mg Tablet, 2.5 MG PO BID, (Reported) Azathioprine 50 Mg Tablet, 100 MG PO HS, (Reported) TAKES 2 (50MG) TABLETS Azathioprine 50 Mg Tablet, 150 MG PO DAILY, (Reported) TAKES 3 (50MG) TABLETS Cholestyramine 5 Gm Powder, 4 GM PO BID PRN for DIARRHEA, (Reported) Cyanocobalamin 1,000 Mcg/Ml Inj, 1,000 MCG IM MONTHLY, (Reported) Diphenoxylate HCl/Atropine 1 Each Tablet, 2 TAB PO QID PRN for DIARRHEA, (Reported) Doxazosin Mesylate 1 Mg Tablet, 1 MG PO BID PRN for BLOOD PRESSURE, (Reported) USE IF SYSTOLIC BP IS <180 Ergocalciferol (Vitamin D2) 50,000 Unit Capsule, 50,000 UNIT PO Mo, (Reported) Fish Oil/Dha/Epa 1 Each Capsule, 1,200 MG PO DAILY, (Reported) Folic Acid 0.4 Mg Tablet, 0.4 MG PO DAILY, (Reported) Infliximab 100 Mg Soln, 10 MG IV Q6 WEEKS, (Reported) L.acidoph & Paracasei,B.lactis 1 Each Capsule, 1 CAP PO DAILY, (Reported) Lisinopril/Hydrochlorothiazide 1 Each Tablet, 1 TAB PO DAILY, (Reported) Loperamide HCl 2 Mg Tablet, 2 MG PO TID PRN for DIARRHEA, (Reported) Magnesium Oxide 400 Mg Tablet, 400 MG PO BID, (Reported) Metoprolol Succinate 100 Mg Tab.er.24h, 100 MG PO DAILY, (Reported) Montelukast Sodium 10 Mg Tablet, 10 MG PO HS, (Reported) Multivitamin 1 Each Tablet, 1 TAB PO DAILY, (Reported) Pantoprazole Sodium 40 Mg Tablet.dr, 40 MG PO DAILY, (Reported) Paroxetine HCl 20 Mg Tablet, 20 MG PO DAILY, (Reported) Potassium Citrate 10 Meq Tablet.er, 20 MEQ PO DAILY, (Reported) Potassium Citrate 10 Meq Tablet.er, 10 MEQ PO HS, (Reported) Simvastatin 10 Mg Tablet, 10 MG PO DAILY, (Reported) Tadalafil 5 Mg Tablet, 5 MG PO PRN, (Reported) Tamsulosin HCl 0.4 Mg Cap, 0.4 MG PO HS, (Reported) Patient Home Medication List Home Medication List Reviewed: Yes Physical Exam-Cardiology Physical Exam Vital Signs/I&O 04/03/19 04/03/19 04/03/19 04/03/19 09:41 12:02 13:21 13:34 Temp 98.1 98.3 98.4 Pulse 110 93 96 Resp 14 16 14 B/P (MAP) 135/77 (96) 101/62 (75) 114/85 Pulse Ox 96 97 100 100 O2 Delivery Room Air Room Air Room Air Room Air 04/03/19 16:00 Temp 97.6 Pulse 95 Resp 20 B/P (MAP) 130/82 (98) Pulse Ox 96 O2 Delivery Room Air Capillary Refill : Less Than 3 Seconds Constitutional: AAO x 3, well-developed, well-nourished HEENT: PERRL, hearing is well preserved, oral hygience is good Neck: No carotid bruit; carotid pulses are 2 + bilaterally Respiratory: No accessory muscle use, No respiratory distress; chest expansion is symmetric, chest is bilaterally symmetric, lungs clear to auscultation Cardiovascular: regular rate-rhythm; No JVD; tachycardia, S1 and S2 Gastrointestinal: No tender; soft, round, audible bowel sounds Rectal: deferred Extremities: no lower extremity edema bilateral Neurologic/Psychiatric: grossly intact, power is 5/5 both on sides Skin: No rash on exposed areas, No ulcerations on exposed areas Data Review Labs Laboratory Tests 04/03/19 09:52: White Blood Count 5.2, Red Blood Count 4.28L, Hemoglobin 14.8, Hematocrit 45, Mean Corpuscular Volume 106H, Mean Corpuscular Hemoglobin 35H, Mean Corpuscular Hemoglobin Concent 33, Red Cell Distribution Width 14.7H, Platelet Count 145, Me an Platelet Volume 11.5H, Neutrophils (%) (Auto) 51, Lymphocytes (%) (Auto) 35, Monocytes (%) (Auto) 10, Eosinophils (%) (Auto) 4, Basophils (%) (Auto) 0, Neutrophils # (Auto) 2.6, Lymphocytes # (Auto) 1.8, Monocytes # (Auto) 0.5, Eosinophils # (Auto) 0.2, Basophils # (Auto) 0.0, Prothrombin Time 13.5, INR Comment 1.0, Activated Partial Thromboplast Time 30, Sodium Level 139, Potassium Level 3.7, Chloride Level 99, Carbon Dioxide Level 27, Anion Gap 13, Blood Urea Nitrogen 14, Creatinine 1.01, Estimat Glomerular Filtration Rate > 60, BUN/Creatinine Ratio 14, Glucose Level 174H, Calcium Level 9.3, Corrected Calcium 9.3, Magnesium Level 1.7L, Total Bilirubin 0.7, Aspartate Amino Transf (AST/SGOT) 36H, Alanine Aminotransferase (ALT/SGPT) 21, Alkaline Phosphatase 100, Troponin I < 0.30, Pro-B-Type Natriuretic Peptide 54.0, Total Protein 7.2, Albumin 4.0, Thyroid Stimulating Hormone (TSH) 0.42 04/03/19 10:22: Urine Color YELLOW, Urine Clarity CLEAR, Urine pH 6.0, Urine Specific [place] 1.020, Urine Protein NEGATIVE, Urine Glucose (UA) NEGATIVE, Urine Ketones NEGATIVE, Urine Nitrite NEGATIVE, Urine Bilirubin NEGATIVE, Urine Urobilinogen 0.2, Urine Leukocyte Esterase NEGATIVE, Urine RBC (Auto) TRACEH, Urine RBC 2-5H, Urine WBC RARE, Urine Squamous Epithelial Cells 0-2, Urine Crystals NONE, Urine Bacteria NEGATIVE, Urine Casts NONE, Urine Mucus NEGATIVE, Urine Culture Indicated NO Radiology NAME: DONOVAN SANCHEZ [facility] REC#: [id number] PT STATUS: ADM Josee : 1955 PHYSICIAN: CASSIDY BLANCO DO ADMIT DATE: 04/03/19/ICU Signed Date of Exam: 04/03/19 CHEST 1 VIEW AP/PA ONLY Patient History: Atrial fibrillation, irregular heart rate. Technique: Single frontal view of the chest Comparison: 11/18/2018 FINDINGS: The lung volumes are normal. No focal consolidation is seen. No large pleural effusion or pneumothorax is seen. The cardiomediastinal silhouette is normal in size and contour. No acute osseous abnormality is seen. IMPRESSION: No acute pulmonary abnormality seen. Dictated by: Dictated on workstation # [id number] Dict: 04/03/19 1027 Trans: 04/03/19 1207 Interpreted by: DAINA ROOT MD Electronically signed by: DAINA ROOT MD 04/03/19 1207 ECG Impression ECG Initial ECG Rhythm: S.Tach A/P-Cardiology Assessment/Admission Diagnosis Discussion and Recomendations Clinical Quality Measures AMI/AHF: ASA po Prior to arrival: No DVT/VTE Risk/Contraindication: Risk Factor Score Per Nursin RFS Level Per Nursing on Admit: 4+=Very High Physician Assessment Physician Assessment Please see my separately done note of the same date EVON JACKMAN [employer] Apr 03, 2019 13:52 MARIPOSA FINLEY MD [facility] Apr 03, 2019 17:03
[2019-04-03] MEDS ORDERED: PARO20TA5 PO (14:00)
[2019-04-03] MEDS ORDERED: TAMS0.4C98 PO (14:00)
[2019-04-03] MEDS ORDERED: POTA10TA17 PO (14:00)
--- NOTE | 2019-04-03 14:05 | NUR ---
SPOKE WITH PATIENT ALONG WITH GOING OVER THE EXTERNAL MED LIST TO COMPILE THE MED REC. PATIENT ALSO BROUGHT A COLOR CODED MED CHART. OTC MEDICATIONS: VITAMIN D ONCE D FISH OIL ONCE D PROBIOTIC ONCE D MULTIVITAMIN ONCE D LOPERAMIDE 2 TS TID B-12 INJECTION ONCE MONTHLY TAKES A REMICADE INJECTION EVERY 6 WEEKS - NEXT INJECTION 04-28-2019
[2019-04-03] MEDS ORDERED: meTOproloL SUCCINATE 50 MG (TOPROL XL) TAB PO NR (14:15)
--- NOTE | 2019-04-03 14:19 | NUR ---
DONOVAN SANCHEZ admitted to room CU3-1, with an admitting diagnosis of [palpitations], on 04/03/19 from ED via [STRETCHER], accompanied by [EMS].DONOVAN SANCHEZ introduced to surroundings, call light, bed controls, phone, TV, temperature control, lights, meal times, smoking policy, visitor policy, side rail policy, bathrooms and showers. Patient Rights given to patient in the handbook. DONOVAN SANCHEZ verbalizes understanding that [facility] is not responsible for the loss or damage to any personal effects or valuables that are kept in the patients possession during their hospitalization. The following Patient Care Plans were discussed with the [PATIENT]: Discharge Planning, [MEDICATIONS],[PAIN MANAGMENT], and [DEHYDRTATION]. DONOVAN SANCHEZ verbalizes understanding of Interdisciplinary Patient Education. Patient and/or family were informed about the Rapid Response Team and its purpose.
--- NOTE | 2019-04-03 15:55 | NUR ---
RECEIVED REPORT FROM VESTA COLE. PT TRANSFERRED FROM ICU TO 4TH FLOOR MED/SURG RM 403 BY WHEELCHAIR WITH VESTA COLE ASSISTING. PT DENIES ANY NEEDS AT THIS TIME. WILL CONTINUE TO MONITOR.
[2019-04-03 16:00] VITALS: BP 130/82
--- NOTE | 2019-04-03 16:00 | NUR ---
Report called to Josefina LEMONS, patient transferred to room 403.
--- NOTE | 2019-04-03 16:24 | Consultation-Cardiology ---
HPI-Cardiology Cardiology Consultation: Date of Consultation 04/03/19 Time Seen by a Provider: 14:50 Date of Admission Attending Physician Tamica Jain MD Admitting Physician Orville Willard MD Consulting Physician ALEX BAHENA MD, MA, FACP, FACC, FSCAI, CCDS Physician requesting consult: Hospitalist Anurag HPI: Chief Complaint: Reason for consultation: Palpitations Mr. Woo is a 63 year old male transferred from [facility] ED to ICU 3 with c/o palpitations. He reports he woke up this morning around 4 a.m. with palpitations, dizziness, SOB and tightness across his chest. He states he checked his pulse and it was as high as 160 bpm. He reports he was diaphoretic. He denies any LE swelling. No n/v/d. No c/o fever or chills. He uses a CPAP and has been compliant. Review of Systems-Cardiology Review of Systems Constitutional: No chills, No fever, No malaise Eyes: No vision change Ears/Nose/Throat: No epistaxis, No recent hearing loss Respiratory: As described under HPI Cardiovascular: As described under HPI Gastrointestinal: No constipation, No diarrhea, No nausea, No vomiting Genitourinary: No dysuria, No hematuria Musculoskeletal: no symptoms reported Skin: No rash on exposed areas, No ulcerations on exposed areas Psychiatric/Neurological: No anxiety, No depression, No seizure, No focal weakness, No syncope Hematologic: No bleeding abnormalities All Other Systems Reviewed Negative Unless Noted: Yes (Negative excepted noted.) PNN-Khrrdx-Kldksq Hx Patient Social History Alcohol Use: Denies Use Recreational Drug Use: No Smoking Status: Former Smoker Type Used: Cigarettes 2nd Hand Smoke Exposure: No Recent Foreign Travel: No Recent Infectious Disease Expo: No Hospitalization with Isolation: Denies Immunizations Up To Date Date of Pneumonia Vaccine: Apr 03, 2018 Date of Influenza Vaccine: Aug 11, 2018 Past Medical History PMH As described under Assessment. Family Medical History Family History: Patient reports no known family medical history. Allergies and Home Medications Allergies Coded Allergies: morphine (Unverified Allergy, Severe, HEART STOPPED, 11/17/18) hydromorphone HCl (Unverified Allergy, Unknown, HIVES, 11/14/18) oxycodone (Unverified Allergy, Unknown, HIVES, 11/14/18) infliximab-dyyb (Unverified Adverse Reaction, Severe, ATRIAL FIB, 12/05/18) PT WENT INTO A FIB WHILE RECEIVING INFUSION meperidine HCl (Unverified Adverse Reaction, Mild, N/V, 11/17/18) Home Medications Apixaban 2.5 Mg Tablet, 2.5 MG PO BID, (Reported) Azathioprine 50 Mg Tablet, 100 MG PO HS, (Reported) TAKES 2 (50MG) TABLETS Azathioprine 50 Mg Tablet, 150 MG PO DAILY, (Reported) TAKES 3 (50MG) TABLETS Cholestyramine 5 Gm Powder, 4 GM PO BID PRN for DIARRHEA, (Reported) Cyanocobalamin 1,000 Mcg/Ml Inj, 1,000 MCG IM MONTHLY, (Reported) Diphenoxylate HCl/Atropine 1 Each Tablet, 2 TAB PO QID PRN for DIARRHEA, (Reported) Doxazosin Mesylate 1 Mg Tablet, 1 MG PO BID PRN for BLOOD PRESSURE, (Reported) USE IF SYSTOLIC BP IS <180 Ergocalciferol (Vitamin D2) 50,000 Unit Capsule, 50,000 UNIT PO Mo, (Reported) Fish Oil/Dha/Epa 1 Each Capsule, 1,200 MG PO DAILY, (Reported) Folic Acid 0.4 Mg Tablet, 0.4 MG PO DAILY, (Reported) Infliximab 100 Mg Soln, 10 MG IV Q6 WEEKS, (Reported) L.acidoph & Paracasei,B.lactis 1 Each Capsule, 1 CAP PO DAILY, (Reported) Lisinopril/Hydrochlorothiazide 1 Each Tablet, 1 TAB PO DAILY, (Reported) Loperamide HCl 2 Mg Tablet, 2 MG PO TID PRN for DIARRHEA, (Reported) Magnesium Oxide 400 Mg Tablet, 400 MG PO BID, (Reported) Metoprolol Succinate 100 Mg Tab.er.24h, 100 MG PO DAILY, (Reported) Montelukast Sodium 10 Mg Tablet, 10 MG PO HS, (Reported) Multivitamin 1 Each Tablet, 1 TAB PO DAILY, (Reported) Pantoprazole Sodium 40 Mg Tablet.dr, 40 MG PO DAILY, (Reported) Paroxetine HCl 20 Mg Tablet, 20 MG PO DAILY, (Reported) Potassium Citrate 10 Meq Tablet.er, 20 MEQ PO DAILY, (Reported) Potassium Citrate 10 Meq Tablet.er, 10 MEQ PO HS, (Reported) Simvastatin 10 Mg Tablet, 10 MG PO DAILY, (Reported) Tadalafil 5 Mg Tablet, 5 MG PO PRN, (Reported) Tamsulosin HCl 0.4 Mg Cap, 0.4 MG PO HS, (Reported) Patient Home Medication List Home Medication List Reviewed: Yes Physical Exam-Cardiology Physical Exam Vital Signs/I&O 04/03/19 04/03/19 04/03/19 04/03/19 09:41 12:02 13:21 13:34 Temp 98.1 98.3 98.4 Pulse 110 93 96 Resp 14 16 14 B/P (MAP) 135/77 (96) 101/62 (75) 114/85 Pulse Ox 96 97 100 100 O2 Delivery Room Air Room Air Room Air Room Air Capillary Refill : Less Than 3 Seconds Constitutional: AAO x 3, well-developed, well-nourished HEENT: PERRL, hearing is well preserved, oral hygience is good Neck: No carotid bruit; carotid pulses are 2 + bilaterally Respiratory: No accessory muscle use, No respiratory distress; chest expansion is symmetric, chest is bilaterally symmetric, lungs clear to auscultation Cardiovascular: regular rate-rhythm; No JVD; tachycardia, S1 and S2 Gastrointestinal: No tender; soft, round, audible bowel sounds Rectal: deferred Extremities: no lower extremity edema bilateral Neurologic/Psychiatric: grossly intact, power is 5/5 both on sides Skin: No rash on exposed areas, No ulcerations on exposed areas Data Review Labs Laboratory Tests 04/03/19 09:52: White Blood Count 5.2, Red Blood Count 4.28L, Hemoglobin 14.8, Hematocrit 45, Mean Corpuscular Volume 106H, Mean Corpuscular Hemoglobin 35H, Mean Corpuscular Hemoglobin Concent 33, Red Cell Distribution Width 14.7H, Platelet Count 145, Mean Platelet Volume 11.5H, Neutrophils (%) (Auto) 51, Lymphocytes (%) (Auto) 35, Monocytes (%) (Auto) 10, Eosinophils (%) (Auto) 4, Basophils (%) (Auto) 0, Neutrophils # (Auto) 2.6, Lymphocytes # (Auto) 1.8, Monocytes # (Auto) 0.5, Eosinophils # (Auto) 0.2, Basophils # (Auto) 0.0, Prothrombin Time 13.5, INR Comment 1.0, Activated Partial Thromboplast Time 30, Sodium Level 139, Potassium Level 3.7, Chloride Level 99, Carbon Dioxide Level 27, Anion Gap 13, Blood Urea Nitrogen 14, Creatinine 1.01, Estimat Glomerular Filtration Rate > 60, BUN/Creatinine Ratio 14, Glucose Level 174H, Calcium Level 9.3, Corrected Calcium 9.3, Magnesium Level 1.7L, Total Bilirubin 0.7, Aspartate Amino Transf (AST/SGOT) 36H, Alanine Aminotransferase (ALT/SGPT) 21, Alkaline Phosphatase 100, Troponin I < 0.30, Pro-B-Type Natriuretic Peptide 54.0, Total Protein 7.2, Albumin 4.0, Thyroid Stimulating Hormone (TSH) 0.42 04/03/19 10:22: Urine Color YELLOW, Urine Clarity CLEAR, Urine pH 6.0, Urine Specific [place] 1.020, Urine Protein NEGATIVE, Urine Glucose (UA) NEGATIVE, Urine Ketones NEGATIVE, Urine Nitrite NEGATIVE, Urine Bilirubin NEGATIVE, Urine Urobilinogen 0.2, Urine Leukocyte Esterase NEGATIVE, Urine RBC (Auto) TRACEH, Urine RBC 2-5H, Urine WBC RARE, Urine Squamous Epithelial Cells 0-2, Urine Crystals NONE, Urine Bacteria NEGATIVE, Urine Casts NONE, Urine Mucus NEGATIVE, Urine Culture Indicated NO A/P-Cardiology Assessment/Admission Diagnosis Palpitations - sinus tachycardia on tele, consider systemic source Card cath of 01/30/19: no significant CAD, LVEF 60-65%, LVEDP 15 mmHg Hosp in Nov 2018 with PAF with RVR, likely due to electrolyte abnormalities and acute kidney injury due to a flare of Crohn's disease Flare of Crohn's disease (in Nov 2018) that is chronically treated with Remicade and steroids. Remicade had been changed to Inlectra just 48 hours prior to adm ission with nausea, vomiting, dehydration and PAF PAF first diagnosed on Nov 2018 Eliquis for stroke prophylaxis MPI of January 02, 2019 showed no evidence of any signif myocardial ischemia or infarction Echo on 11/17/18: LVEF 60-65%, PASP 30-35 mmHg Sinus node dysfunction: ECG of 12/27/18 shows NSR with frequent multifocal PACs TASH, treated with CPAP Discussion and Recomendations * We recommend eval for systemic sources of sinus tachycardia such a infection, inflammation, bleeding, etc. This is to be undertaken by the Hospitalist Service * Replace electrolytes * Monitor labs and check TSH * Known h/o PAF - continue OAC with Eliquis for stroke prophylaxis * Further recs will be based on his hospital course * We would like to thank the Hospitalist Service for this consult Clinical Quality Measures AMI/AHF: ASA po Prior to arrival: No DVT/VTE Risk/Contraindication: Risk Factor Score Per Nursin RFS Level Per Nursing on Admit: 4+=Very High ALEX BAHENA MD FACP FAC CCDS Apr 03, 2019 16:24
[2019-04-03] MEDS ORDERED: ATROPINE PO PRN (16:45)
[2019-04-03] MEDS ORDERED: [UNRECOGNIZED DRUG - OTHER] PO PRN (16:45)
[2019-04-03] MEDS ORDERED: DIPHENOXYLATE HCL PO PRN (16:45)
[2019-04-03] MEDS ORDERED: CHOLESTYRAMINE 4 GM PO PRN (16:45)
--- NOTE | 2019-04-03 16:49 | NUR ---
PHYSICAL ASSESSMENT COMPLETED AGREED WITH ICU NURSE VESTA COLE.
[2019-04-03] MEDS ORDERED: CHOLESTYRAMINE 4 GM (QUESTRAN LITE, PREVALITE) PKT PO PRN (17:00)
[2019-04-03] MEDS ORDERED: DIPHENOXYLATE/ATROPINE 2.5MG/0.025MG (LOMOTIL) TAB PO PRN (17:00)
[2019-04-03] MEDS: MAGNESIUM OXIDE (MAG-OX)400 MG TAB PO SCH (17:59)
[2019-04-03] MEDS ORDERED: ACETAMINOPHEN 500 MG TAB (TYLENOL) ONE (18:13)
[2019-04-03] MEDS ORDERED: ACETAMINOPHEN 500 MG TAB (TYLENOL) PO PRN (18:15)
[2019-04-03] MEDS ORDERED: PATIENT MAY USE OWN MEDS, ALL MC SCH (19:00)
[2019-04-03 19:58] VITALS: BP 118/63
[2019-04-03] MEDS: APIXABAN 5 MG (ELIQUIS) TABLET PO SCH (20:09)
[2019-04-03] MEDS ORDERED: MONTELUKAST 10 MG (SINGULAIR) TAB PO SCH (21:00)
[2019-04-03] MEDS ORDERED: AZATHIOPRINE 100 MG PO SCH (21:00)
[2019-04-03] MEDS ORDERED: TAMSULOSIN 0.4 MG (FLOMAX) CAP PO SCH (21:00)
[2019-04-03] MEDS ORDERED: POTASSIUM CITRATE 10 MEQ (UROCIT-K) NON-FORMULARY PO SCH (21:00)
[2019-04-03] MEDS ORDERED: azaTHIOprine (IMURAN) 50 MG TAB PO SCH (21:00)
[2019-04-03] MEDS ORDERED: NON-FORMULARY MEDICATION 1 EA EA (Magnesium Oxide 400 MG) PO SCH (21:00)
[2019-04-03 23:19] VITALS: BP 105/68
[2019-04-04] MEDS: NS IV 1000 ML 1,000 ML IV SCH ×2 (00:49→11:40)
[2019-04-04 03:38] VITALS: BP 105/59
[2019-04-04] MEDS: MAGNESIUM OXIDE (MAG-OX)400 MG TAB PO SCH (06:48)
[2019-04-04] MEDS ORDERED: PANTOPRAZOLE 40 MG (PROTONIX) TAB PO SCH (07:00)
[2019-04-04 08:06] VITALS: BP 109/56
--- NOTE | 2019-04-04 08:23 | NUR ---
DR. BAHENA NOTIFIED OF PATIENT'S BLOOD PRESSURE. NEW ORDERS RECEIVED TO DISCONTINUE LISINOPRIL AND HYDROCHLOROTHIAZIDE.
[2019-04-04] MEDS ORDERED: POTASSIUM CITRATE 10 MEQ (UROCIT-K) NON-FORMULARY PO SCH (09:00)
[2019-04-04] MEDS ORDERED: PARoxetine 20 MG (PAXIL) TAB PO SCH (09:00)
[2019-04-04] MEDS ORDERED: NON-FORMULARY MEDICATION 1 EA EA (Lisinopril/Hydrochlorothiazide (Lisinopril-Hctz 20-25 mg PO SCH (09:00)
[2019-04-04] MEDS ORDERED: HYDROCHLOROTHIAZIDE 25 MG (HCTZ) TAB PO SCH (09:00)
[2019-04-04] MEDS ORDERED: AZATHIOPRINE 150 MG PO SCH (09:00)
[2019-04-04] MEDS ORDERED: NON-FORMULARY MEDICATION 1 EA EA (Folic Acid 0.4 MG) PO SCH (09:00)
[2019-04-04] MEDS ORDERED: LACTOBACILLUS ACIDOPHILUS (PROBIOTIC) CAPSULE PO SCH (09:00)
[2019-04-04] MEDS ORDERED: meTOprolol SUCCINATE 100 MG (TOPROL XL) TAB PO SCH (09:00)
[2019-04-04] MEDS ORDERED: FOLIC ACID 1 MG TAB PO SCH (09:00)
[2019-04-04] MEDS ORDERED: lisINopril 20 MG (PRINIVIL) TABLET PO SCH (09:00)
[2019-04-04] MEDS ORDERED: SIMvastatin 10 MG (ZOCOR) TAB PO SCH (09:00)
[2019-04-04] MEDS ORDERED: azaTHIOprine (IMURAN) 50 MG TAB PO SCH (09:00)
[2019-04-04] MEDS ORDERED: NON-FORMULARY MEDICATION 1 EA EA (L.acidoph & Paracasei,B.lactis (Probiotic) 1 CAP) PO SCH (09:00)
[2019-04-04] MEDS: APIXABAN 5 MG (ELIQUIS) TABLET PO SCH (09:01)
--- NOTE | 2019-04-04 09:11 | Progress Note-Cardiology ---
Cardiology SOAP Progress Note Subjective: Feels better today No palp or cp or syncope or shortness of breath Objective: I&O/Vital Signs 04/03/19 04/04/19 04/04/19 04/04/19 23:19 01:00 03:38 07:00 Temp 96.8 97.0 Pulse 76 65 65 69 Resp 18 18 B/P (MAP) 105/68 (80) 105/59 (74) Pulse Ox 98 97 O2 Delivery Room Air Room Air 04/04/19 08:06 Temp 97.6 Pulse 72 Resp 20 B/P (MAP) 109/56 (73) Pulse Ox 96 O2 Delivery Room Air O2 Flow Rate 0.00 04/04/19 00:00 Intake Total 880 ml Balance 880 ml Weight (Pounds): 254 Weight (Ounces): 0.0 Weight (Calculated Kilograms): 115.801606 Constitutional: AAO x 3, well-developed, well-nourished Respiratory: No accessory muscle use, No respiratory distress; chest expansion is symmetric, chest is bilaterally symmetric, lungs clear to auscultation Cardiovascular: regular rate-rhythm; No JVD; tachycardia, S1 and S2 Gastrointestional: No tender; soft, round, audible bowel sounds Extremities: no lower extremity edema bilateral Neurologic/Psychiatric: grossly intact, power is 5/5 both on sides Skin: No rash on exposed areas, No ulcerations on exposed areas Results/Procedures: Labs Laboratory Tests 04/03/19 09:52: White Blood Count 5.2, Red Blood Count 4.28L, Hemoglobin 14.8, Hematocrit 45, Mean Corpuscular Volume 106H, Mean Corpuscular Hemoglobin 35H, Mean Corpuscular Hemoglobin Concent 33, Red Cell Distribution Width 14.7H, Platelet Count 145, Mean Platelet Volume 11.5H, Neutrophils (%) (Auto) 51, Lymphocytes (%) (Auto) 35, Monocytes (%) (Auto) 10, Eosinophils (%) (Auto) 4, Basophils (%) (Auto) 0, Neutrophils # (Auto) 2.6, Lymphocytes # (Auto) 1.8, Monocytes # (Auto) 0.5, Eosinophils # (Auto) 0.2, Basophils # (Auto) 0.0, Prothrombin Time 13.5, INR Comment 1.0, Activated Partial Thromboplast Time 30, Sodium Level 139, Potassium Level 3.7, Chloride Level 99, Carbon Dioxide Level 27, Anion Gap 13, Blood Urea Nitrogen 14, Creatinine 1.01, Estimat Glomerular Filtration Rate > 60, BUN/Creatinine Ratio 14, Glucose Level 174H, Calcium Level 9.3, Corrected Calcium 9.3, Magnesium Level 1.7L, Total Bilirubin 0.7, Aspartate Amino Transf (AST/SGOT) 36H, Alanine Aminotransferase (ALT/SGPT) 21, Alkaline Phosphatase 100, Troponin I < 0.30, Pro-B-Type Natriuretic Peptide 54.0, Total Protein 7.2, Albumin 4.0, Thyroid Stimulating Hormone (TSH) 0.42 04/03/19 10:22: Urine Color YELLOW, Urine Clarity CLEAR, Urine pH 6.0, Urine Specific [place] 1.020, Urine Protein NEGATIVE, Urine Glucose (UA) NEGATIVE, Urine Ketones NEGATIVE, Urine Nitrite NEGATIVE, Urine Bilirubin NEGATIVE, Urine Urobilinogen 0.2, Urine Leukocyte Esterase NEGATIVE, Urine RBC (Auto) TRACEH, Urine RBC 2-5H, Urine WBC RARE, Urine Squamous Epithelial Cells 0-2, Urine Crystals NONE, Urine Bacteria NEGATIVE, Urine Casts NONE, Urine Mucus NEGATIVE, Urine Culture Heena cated NO Laboratory Tests 04/03/19 09:52 A/P: Assessment: Sinus tach, probably related to dehydration due to chronic diuretic therapy Card cath of 01/30/19: no significant CAD, LVEF 60-65%, LVEDP 15 mmHg Hosp in Nov 2018 with PAF with RVR, likely due to electrolyte abnormalities and acute kidney injury due to a flare of Crohn's disease Flare of Crohn's disease (in Nov 2018) that is chronically treated with Remicade and steroids. Remicade had been changed to Inlectra just 48 hours prior to admission with nausea, vomiting, dehydration and PAF PAF first diagnosed on Nov 2018 Eliquis for stroke prophylaxis MPI of January 02, 2019 showed no evidence of any signif myocardial ischemia or infarction Echo on 11/17/18: LVEF 60-65%, PASP 30-35 mmHg Sinus node dysfunction: ECG of 12/27/18 shows NSR with frequent multifocal PACs TASH, treated with CPAP Plan: * D/c HCTZ and lisinopril due to dehydration and low normal bp * Continue beta-gilmer * Outpt f/u advised * I discussed his case with Dr Jain this morning * I spoke with Mr Amna and answered his CV-related questions and our rationale for med changes noted above Clinical Quality Measures AMI/AHF: ASA po Prior to arrival: ALEX Lewis MD FACP FAC CCDS Apr 04, 2019 09:11
[2019-04-04] MEDS ORDERED: APIX5TAB PO (10:21)
[2019-04-04] MEDS ORDERED: METO200T48 PO (10:21)
--- NOTE | 2019-04-04 10:26 | Discharge Inst-Simple/Standard ---
Discharge Inst-Standard Discharge Medications New, Converted or Re-Newed RX: Transmitted to Pharmacy Patient Instructions/Follow Up Plan of Care/Instructions/FU: Please continue to take your medications as written. Please follow up with Dr Willard and Dr Finley as scheduled. Activity as Tolerated: Yes Discharge Diet: Cardiac Diet Return to The Hospital For: Chest pain, palpitations, shortness of breath, weakness, slurred speech, blood in stool, if you feel you are getting worse. PRANAY TORO MD Apr 04, 2019 10:26
--- NOTE | 2019-04-04 10:32 | Discharge Summary-Hospitalist ---
Diagnosis/Chief Complaint Date of Admission Apr 03, 2019 at 11:33 Date of Discharge Discharge Date: Apr 04, 2019 Admission Diagnosis Paroxysmal a-fib Discharge Diagnosis (1) PAF (paroxysmal atrial fibrillation) Assessment & Plan: Cardiology consulted, appreciate everardo Mag replaced in ER Check TSH Monitor on Telemetry Sounds irregular on exam but appears to have p waves on telemetry Continue eliquis and toprol (2) Crohn disease Status: Chronic Assessment & Plan: Doing well on Remicaid No complaints (3) Depression Status: Chronic Assessment & Plan: Continue home meds (4) BPH (benign prostatic hyperplasia) Status: Chronic Assessment & Plan: Continue home meds Discharge Summary Procedures/Consulations Dr Finley- Cardiology Discharge Physical Exam Allergies: Coded Allergies: morphine (Unverified Allergy, Severe, HEART STOPPED, 11/17/18) hydromorphone HCl (Unverified Allergy, Unknown, HIVES, 11/14/18) oxycodone (Unverified Allergy, Unknown, HIVES, 11/14/18) infliximab-dyyb (Unverified Adverse Reaction, Severe, ATRIAL FIB, 12/05/18) PT WENT INTO A FIB WHILE RECEIVING INFUSION meperidine HCl (Unverified Adverse Reaction, Mild, N/V, 11/17/18) Vitals & I&Os Vital Signs Date Time Temp Pulse Resp B/P (MAP) Pulse Ox O2 Delivery O2 Flow Rate FiO2 04/04/19 12:30 69 19 108/65 97 Room Air 0.00 04/04/19 12:26 97.6 General Appearance: No Apparent Distress, WD/WN Respiratory: Lungs Clear, No Accessory Muscle Use, No Respiratory Distress Cardiovascular: Regular Rate, Rhythm, No Murmur Gastrointestinal: Normal Bowel Sounds, Non Tender, Soft Neurologic/Psychiatric: Alert, Oriented x3 Hospital Course Pt was admitted for palpitations with a history of atrial fibrillation. He presented with a heart rate in the 140-160s and with rest it improved but would jump up easily with any exertion. EKG and telemetry revealed sinus tachycardia. He was admitted for observation and cardiology was consulted. His metoprolol was increased and his Lisinopril/HCTZ was discontinued. We also discussed his anticoagulation and he had previously been on the lower dose but given no history of bleeding his dose was increased. Risk and benefits were discussed with the patient and return precautions for bleeding were given. I called and informed Dr Willard, his PCP, of the changes made during this hospitalization. He was discharged home in stable condition. Labs (last 24 hrs) Patient resulted labs reviewed. Imaging: Reviewed Imaging Report Discussion & Recommendations Discharge Planning: >30 minutes discharge planning Discharge Home Medications: Active Scripts Active Eliquis (Apixaban) 5 Mg Tablet 5 Mg PO BID Metoprolol Succinate 200 Mg Tab.er.24h 200 Mg PO DAILY Reported Potassium Citrate ER (Potassium Citrate) 10 Meq Tablet.er 10 Meq PO HS Paroxetine HCl 20 Mg Tablet 20 Mg PO DAILY Flomax (Tamsulosin HCl) 0.4 Mg Cap 0.4 Mg PO HS Cholestyramine Resin (Cholestyramine) 5 Gm Powder 4 Gm PO BID PRN Magnesium Oxide 400 Mg Tablet 400 Mg PO BID Cialis (Tadalafil) 5 Mg Tablet 5 Mg PO PRN Loperamide (Loperamide HCl) 2 Mg Tablet 2 Mg PO TID PRN Remicade (Infliximab) 100 Mg Soln 10 Mg IV Q6 WEEKS Doxazosin Mesylate 1 Mg Tablet 1 Mg PO BID PRN USE IF SYSTOLIC BP IS <180 Potassium Citrate ER (Potassium Citrate) 10 Meq Tablet.er 20 Meq PO DAILY Vitamin D2 (Ergocalciferol (Vitamin D2)) 50,000 Unit Capsule 50,000 Unit PO MO Multiple Vitamins (Multivitamin) 1 Each Tablet 1 Tab PO DAILY Lomotil 2.5-0.025 mg Tablet (Diphenoxylate HCl/Atropine) 1 Each Tablet 2 Tab PO QID PRN Folic Acid 0.4 Mg Tablet 0.4 Mg PO DAILY Probiotic (L.acidoph & Paracasei,B.lactis) 1 Each Capsule 1 Cap PO DAILY Azathioprine 50 Mg Tablet 150 Mg PO DAILY TAKES 3 (50MG) TABLETS Pantoprazole Sodium 40 Mg Tablet.dr 40 Mg PO DAILY Montelukast Sodium 10 Mg Tablet 10 Mg PO HS Simvastatin 10 Mg Tablet 10 Mg PO DAILY Fish Oil 1,200 mg Fish Oil (Fish Oil/Dha/Epa) 1 Each Capsule 1,200 Mg PO DAILY Cyanocobalamin Injection (Cyanocobalamin) 1,000 Mcg/Ml Inj 1,000 Mcg IM MONTHLY Azathioprine 50 Mg Tablet 100 Mg PO HS TAKES 2 (50MG) TABLETS Instructions to patient/family Please see electronic discharge instructions given to patient. Clinical Quality Measures AMI/AHF: ASA po Prior to arrival: No DVT/VTE Risk/Contraindication: Risk Factor Score Per Nursin RFS Level Per Nursing on Admit: 4+=Very High Problem Qualifiers (1) Crohn disease: Gastrointestinal tract location: unspecified location Digestive disease com plication type: unspecified complication Qualified Codes: K50.919 - Crohn's disease, unspecified, with unspecified complications (2) Depression: Depression Type: unspecified Qualified Codes: F32.9 - Major depressive disorder, single episode, unspecified (3) BPH (benign prostatic hyperplasia): Lower urinary tract symptom presence: unspecified whether lower urinary tract symptoms present Qualified Codes: N40.0 - Benign prostatic hyperplasia without lower urinary tract symptoms PRANAY TORO MD Apr 04, 2019 10:32
[2019-04-04 12:26] VITALS: BP 108/65
[2019-04-04 12:30] VITALS: BP 108/65
--- NOTE | 2019-04-04 12:30 | NUR ---
DONOVAN SANCHEZ demonstrates understanding of discharge instructions and accurately returns instructions upon questioning. Copy of Post-Discharge Instructions and Medication Discharge Instructions given to PATIENT. DONOVAN SANCHEZ is able to manage continuing needs after discharge. Patients belongings returned to [facility]. Skin dry and intact; no breakdown noted. Patient discharged from [facility] on 04/04/2019 at 1230. DONOVAN SANCHEZ left floor via WHEELCHAIR, accompanied by STAFF AND FAMILY.
--- OUTSIDE RECORDS SUMMARY | 2019-04-06 03:18 | XMS REPORT | Continuity of Care Document ---
Author Organization Unknown Address Unknown Allergies Active Description Code Type Severity Reaction Onset Reported/Identified Relationship to Patient Clinical Status Yes hydromorphone HCl [id number] Drug Allergy Unknown HIVES 11/14/2018 Yes meperidine HCl [id number] Drug Allergy Unknown N/V 11/14/2018 Yes oxycodone [id number] Drug Allergy Unknown HIVES 11/14/2018 Yes morphine [id number] Drug Allergy Severe HEART STOPPED 11/17/2018 Yes meperidine HCl [id number] Drug Allergy Mild N/V 11/17/2018 Yes infliximab-dyyb [id number] Drug Allergy Severe ATRIAL FIB 12/05/2018 Medications [...] Ot R11.2 NAUSEA WITH VOMITING, UNSPECIFIED 11/15/2018 LYNSEY JUÁREZIS Ot T50.995A ADVERSE EFFECT OF DRUG/MEDS/BIOL SUBST, 11/15/2018 BERNJONI LUIZA Ot Z79.52 AUTO DAMAGE ESTIMATOR (CURRENT) USE OF SYSTEMIC STER 11/15/2018 BERNJONI LUIZA Ot Z87.19 PERSONAL HISTORY OF OTHER DISEASES OF TH 11/15/2018 BERNLYNSEY QUINONESIS Ot Z87.442 PERSONAL HISTORY OF URINARY CALCULI 11/15/2018 LYNSEY JUÁREZIS Ot Z88.5 ALLERGY STATUS TO NARCOTIC AGENT STATUS 11/15/2018 LYNSEY JUÁREZIS Ot Z88.8 ALLERGY STATUS TO OTH DRUG/MEDS/BIOL SUB 11/15/2018 BERNOT, LUIZA Ot Z90.79 ACQUIRED ABSENCE OF OTHER GENITAL ORGAN( 11/15/2018 BERNJONI, LUIZA Ot Z90.89 ACQUIRED ABSENCE OF OTHER ORGANS 11/15/2018 BERNJONI, LUIZA Ot Z98.890 OTHER SPECIFIED POSTPROCEDURAL STATES 11/15/2018 ROSEANNE CHACON, MK Velazquez Ot K50.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, UNSPECIFIED, WITHOUT CO 11/16/2018 BERNOT, LUIZA Ot I10 ESSENTIAL (PRIMARY) HYPERTENSION 11/16/2018 VICENTEOT LUIZA Ot R07.89 OTHER CHEST PAIN 11/16/2018 BERNJONI LUIZA Ot R11.2 NAUSEA WITH VOMITING, UNSPECIFIED 11/16/2018 BERNJONI LUIZA Ot T50.995A ADVERSE EFFECT OF DRUG/MEDS/BIOL SUBST, 11/16/2018 VICENTEJONI LUIZA Ot Z79.52 [facility] (CURRENT) USE OF SYSTEMIC STER 11/16/2018 VICENTEJONI LUIZA Ot Z87.19 PERSONAL HISTORY OF OTHER DISEASES OF TH 11/16/2018 VICENTEJONI LUIZA Ot Z87.442 PERSONAL HISTORY OF URINARY CALCULI 11/16/2018 MARQUITA LUIZA Ot Z88.5 ALLERGY STATUS TO NARCOTIC AGENT STATUS 11/16/2018 VICENTEJONI LUIZA Ot Z88.8 ALLERGY STATUS TO OTH DRUG/MEDS/BIOL SUB 11/16/2018 MARQUITA LUIZA Ot Z90.79 ACQUIRED ABSENCE OF OTHER GENITAL ORGAN( 11/16/2018 BERNJONI, LUIZA Ot Z90.89 ACQUIRED ABSENCE OF OTHER [...] PRANAY TORO MD Ot E87.6 HYPOKALEMIA 11/21/2018 CORTEZ MD, PRANAY M Ot I10 ESSENTIAL (PRIMARY) HYPERTENSION 11/21/2018 PRANAY [...] PAIN 12/05/2018 LAURA ANTOINE MD Ot Z79.52 [facility] (CURRENT) USE OF SYSTEMIC STER 12/05/2018 LAURA ANTOINE MD Ot Z79.82 [facility] (CURRENT) USE OF ASPIRIN 12/05/2018 LAURA ANTOINE [...] PAIN 12/07/2018 LAURA ANTOINE MD Ot Z79.52 AUTO DAMAGE ESTIMATOR (CURRENT) USE OF SYSTEMIC STER 12/07/2018 LAURA ANTOINE MD Ot Z79.82 AUTO DAMAGE ESTIMATOR (CURRENT) USE OF ASPIRIN 12/07/2018 LAURA ANTOINE MD Ot Z85.828 PERSONAL HISTORY OF OTHER MALIGNANT NEOP 12/07/2018 LAURA ANTOINE MD Ot Z87.19 PERSONAL HISTORY OF OTHER DISEASES OF 12/07/2018 LAURA ANTOINE MD Ot Z87.442 PERSONAL HISTORY OF URINARY CALCULI 12/07/2018 ELINA CHACON, LAURA Velazquez Ot Z88.5 ALLERGY STATUS TO NARCOTIC AGENT STATUS 12/07/2018 ALURA ANTOINE MD Ot Z88.8 ALLERGY STATUS TO [...] CROHN'S DISEASE, UNSPECIFIED, WITHOUT CO 12/26/2018 MK RCONIN MD Ot K50.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, UNSPECIFIED, WITHOUT CO 01/03/2019 JOSEF CHACON FACC, ALI FACP CCDS Ot E87.8 [facility] DISORDERS OF ELECTROLYTE AND FLUID B 01/03/2019 JOSEF CHACON FACChris, ALI FACP CCDS Ot G47.33 OBSTRUCTIVE SLEEP APNEA (ADULT) (PEDIATR 01/03/2019 JOSEF CHACON FACC, ALI FACP CCDS Ot I48.0 PAROXYSMAL ATRIAL FIBRILLATION 01/03/2019 JOSEF CHACON FACChris, ALI FACP CCDS Ot K50.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, UNSPECIFIED, WITHOUT CO 01/03/2019 JOSEF CHACON FACC, ALI FACP CCDS Ot R06.02 SHORTNESS OF BREATH 01/08/2019 MK CRONIN MD Ot K50.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, UNSPECIFIED, WITHOUT CO 01/11/2019 Ot 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..] CHACON FACC, ALI FACP CCDS Ot Z79.01 [facility] (CURRENT) USE OF ANTICOAGULANT 02/01/2019 JOSEF CHACON FACC, ALI FACP CCDS Ot Z79.899 OTHER AUTO DAMAGE ESTIMATOR (CURRENT) DRUG THERAPY 02/01/2019 JOSEF CHACON FACC, [...] MD Ot I25.10 ATHSCL HEART DISEASE OF [place] CORONARY 02/28/2019 MK CRONIN MD Ot J43.9 [...] MD Ot I25.10 ATHSCL HEART DISEASE OF [place] CORONARY 03/22/2019 MK CRONIN MD Ot J43.9 EMPHYSEMA, UNSPECIFIED 03/22/2019 MK CRONIN MD, Ot M25.551 PAIN IN RIGHT HIP 03/22/2019 MK CRONIN MD Ot R91.8 OTHER NONSPECIFIC ABNORMAL FINDING OF [place] 03/22/2019 MK CRONIN MD Ot Z98.890 OTHER SPECIFIED POSTPROCEDURAL STATES 03/22/2019 MK CRONIN MD Ot K50.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, UNSPECIFIED, WITHOUT CO 04/03/2019 MK CRONIN MD, Ot K50.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, UNSPECIFIED, WITHOUT CO 04/03/2019 MK CRONIN MD, Ot K50.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, UNSPECIFIED, WITHOUT CO 04/03/2019 Ot 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 04/03/2019 MK CRONIN MD, Ot K50.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, UNSPECIFIED, WITHOUT CO 04/03/2019 JOSEF CHACON FACC, ALI FACP CCDS Ot E87.8 OT DISORDERS OF ELECTROLYTE AND FLUID B 04/03/2019 JOSEF CHACON FACC, ALI FACP CCDS Ot G47.33 OBSTRUCTIVE SLEEP APNEA (ADULT) (PEDIATR 04/03/2019 JOSEF CHACON FACC, ALI FACP CCDS Ot I48.0 PAROXYSMAL ATRIAL FIBRILLATION 04/03/2019 JOSEF CHACON FACC, ALI FACP CCDS Ot K50.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, UNSPECIFIED, WITHOUT CO 04/03/2019 JOSEF CHACON FACC, ALI FACP CCDS Ot R06.02 SHORTNESS OF BREATH 04/03/2019 MK CRONIN MD, Ot K50.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, UNSPECIFIED, WITHOUT CO 04/03/2019 MK CRONIN MD Ot I25.10 ATHSCL HEART DISEASE OF [place] CORONARY 04/03/2019 MK CRONIN MD Ot J43.9 EMPHYSEMA, UNSPECIFIED 04/03/2019 MK CRONIN MD Ot M25.551 PAIN IN RIGHT HIP 04/03/2019 MK CRONIN MD Ot R91.8 OTHER NONSPECIFIC ABNORMAL FINDING OF [place] 04/03/2019 MK CRONIN MD Ot Z98.890 OTHER SPECIFIED POSTPROCEDURAL STATES 04/03/2019 MK CRONIN MD Ot 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 Procedures Code Description Performed By Performed On [id number] BAHAI OF CARDIAC RHYTHM, SINGLE 11/17/2018 Results Test [...] OF GROWTH Isolated NRG Bacterial blood culture [id number] NRG Complete urinalysis with reflex to culture - 11/16/18 13:20 Urine color determination YELLOW NRG Urine clarity determination SLIGHTLY CLOUDY NRG Urine pH measurement by test strip 5 [...] 114 mmol/L 98-107 Carbon dioxide 19 mmol/L -32 Serum or plasma anion gap determination (moles/volume) [...] automated white blood cell (WBC) differential - 04/03/19 09:52 Blood leukocytes automated count (number/volume) 5.2 10*3/uL 4.3-11.0 Blood erythrocytes automated count (number/volume) 4.28 10*6/uL 4.35-5.85 Venous blood hemoglobin measurement (mass/volume) 14.8 g/dL 13.3-17.7 Blood hematocrit (volume fraction) 45 % 40-54 Automated erythrocyte mean corpuscular volume 106 [foz_us] 80-99 Automated erythrocyte mean corpuscular hemoglobin (mass per erythrocyte) 35 pg 25-34 Automated erythrocyte mean corpuscular hemoglobin concentration measurement (mass/volume) 33 g/dL 32-36 Automated erythrocyte distribution width ratio 14.7 % 10.0- 14.5 Automated blood platelet count (count/volume) 145 10*3/uL 130-400 Automated blood platelet mean volume measurement 11.5 [foz_us] 7.4-10.4 Automated blood neutrophils/100 leukocytes 51 % 42-75 Automated blood lymphocytes/100 leukocytes 35 % 12-44 Blood monocytes/100 leukocytes 10 % 0-12 Automated blood eosinophils/100 leukocytes 4 % 0-10 Automated blood basophils/100 leukocytes 0 % 0-10 Blood neutrophils automated count (number/volume) 2.6 10*3 1.8-7.8 Blood lymphocytes automated count (number/volume) 1.8 10*3 1.0-4.0 Blood monocytes automated count (number/volume) 0.5 10*3 0.0- 1.0 Automated eosinophil count 0.2 10*3/uL 0.0-0.3 Automated blood basophil count (count/volume) 0.0 10*3/uL 0.0-0.1 PT panel in platelet poor plasma by coagulation assay - 04/03/19 09:52 Prothrombin time (PT) in platelet poor plasma by coagulation assay 13.5 s 12.2-14.7 INR in platelet poor plasma or blood by coagulation assay 1.0 0.8-1.4 Activated partial thromboplastin time (aPTT) in platelet poor plasma bycoagulation assay - 04/03/19 09:52 Activated partial thromboplastin time (aPTT) in platelet poor plasma bycoagulation assay 30 s 24-35 Comprehensive metabolic panel - 04/03/19 09:52 Serum or plasma sodium measurement (moles/volume) 139 mmol/L 135-145 Serum or plasma potassium measurement (moles/volume) 3.7 mmol/L 3.6-5.0 Serum or plasma chloride measurement (moles/volume) 99 mmol/L 98-107 Carbon dioxide 27 mmol/L 21-32 Serum or plasma anion gap determination (moles/volume) 13 mmol/L 5-14 Serum or plasma urea nitrogen measurement (mass/volume) 14 mg/dL 7-18 Serum or plasma creatinine measurement (mass/volume) 1.01 mg/dL 0.60-1.30 Serum or plasma urea nitrogen/creatinine mass ratio 14 NRG Serum or plasma creatinine measurement with calculation of estimated glomerular filtration rate > NRG Serum or plasma glucose measurement (mass/volume) 174 mg/dL 70-105 Serum or plasma calcium measurement (mass/volume) 9.3 mg/dL 8.5-10.1 Serum or plasma total bilirubin measurement (mass/volume) 0.7 mg/dL 0.1-1.0 Serum or plasma alkaline phosphatase measurement (enzymatic activity/volume) 100 U/L 40-136 Serum or plasma aspartate aminotransferase measurement (enzymatic activity/volume) 36 U/L 5-34 Serum or plasma alanine aminotransferase measurement (enzymatic activity/volume) 21 U/L 0-55 Serum or plasma protein measurement (mass/volume) 7.2 g/dL 6.4-8.2 Serum or plasma albumin measurement (mass/volume) 4.0 g/dL 3.2-4.5 CALCIUM CORRECTED 9.3 mg/dL 8.5-10.1 Magnesium - 04/03/19 09:52 Magnesium 1.7 mg/dL 1.8-2.4 Serum or plasma troponin i.cardiac measurement (mass/volume) - 04/03/19 09:52 Serum or plasma troponin i.cardiac measurement (mass/volume) < ng/mL <0.30 PROBNP FS - 04/03/19 09:52 PROBNP FS 54.0 pg/mL <75.0 THYROID STIMULATING HORMONE - 04/03/19 09:52 THYROID STIMULATING HORMONE 0.42 u[iU]/mL 0.35-4.94 Complete urinalysis with reflex to culture - 04/03/19 10:22 Urine color determination YELLOW NRG Urine clarity determination CLEAR NRG Urine pH measurement by test strip 6.0 5-9 Specific gravity of urine by test strip 1.020 1.016-1.022 Urine protein assay by test strip, semi-quantitative NEGATIVE NEGATIVE Urine glucose detection by automated test strip NEGATIVE NEGATIVE Erythrocytes detection in urine sediment by light microscopy TRACE NEGATIVE Urine ketones detection by automated test strip NEGATIVE NEGATIVE Urine nitrite detection by test strip NEGATIVE NEGATIVE Urine total bilirubin detection by test strip NEGATIVE NEGATIVE Urine urobilinogen measurement by automated test strip (mass/volume) 0.2 mg/dL NORMAL Urine leukocyte esterase detection by dipstick NEGATIVE NEGATIVE Automated urine sediment erythrocyte count by microscopy (number/high power field) [HPF] NRG Automated urine sediment leukocyte count by microscopy (number/high power field) RARE NRG Bacteria detection in urine sediment by light microscopy NEGATIVE NRG Squamous epithelial cells detection in urine sediment by light microscopy 0-2 NRG Crystals detection in urine sediment by light microscopy NONE NRG Casts detection in urine sediment by light microscopy NONE NRG Mucus detection in urine sediment by light microscopy NEGATIVE NRG Complete urinalysis with reflex to culture NO NRG Encounters ACCT No. Visit Date/Time Discharge Status Pt. Type Provider Facility Loc./Unit Complaint [id number] 04/03/2019 11:33:00 04/04/2019 12:30:00 DIS Inpatient PRANAY TORO MD [facility] 4TH PALPS PAF [id number] 03/19/2019 09:34:00 03/19/2019 23:59:59 CLS Outpatient MK CRONIN MD [facility] CROHNS DISEASE [id number] 02/27/2019 08:10:00 02/27/2019 23:59:59 CLS Outpatient MK CRONIN MD [facility] RAD FS CHEST WALL PAIN [id number] 02/05/2019 09:15:00 02/05/2019 23:59:59 CLS Outpatient MK CRONIN MD [facility] CROHNS DISEASE [id number] 01/30/2019 11:50:00 01/30/2019 18:45:00 DIS Outpatient JOSEF CHACON FACC, ALI FACP CCDS [facility] CATH CHEST PAIN,PAF,SOB [id number] 01/02/2019 07:46:00 01/02/2019 23:59:59 CLS Outpatient JOSEF CHACON FACC, ALI FACP CCDS [facility] CARD PAF [id number] 12/25/2018 09:39:00 12/25/2018 23:59:59 CLS Outpatient MK CRONIN MD [facility] CROHNS DISEASE [id number] 12/05/2018 08:41:00 12/05/2018 11:54:00 DIS Emergency LAURA ANTOINE MD [facility] ER FS CHEST PAIN; ABD PAIN [id number] 11/16/2018 16:30:00 11/22/2018 13:26:00 DIS Inpatient PRANAY TORO MD [facility] 4TH UTI,SMALL BOWEL OBSTRUCTION,SEVERE SEPSIS [id number] 11/14/2018 18:51:00 11/15/2018 00:46:00 DIS Emergency LUIZA JUÁREZ [facility] ER CHEST PAINS [id number] 11/13/2018 09:40:00 11/13/2018 23:59:59 CLS Outpatient MK CRONIN MD [facility] CROHNS DISEASE [id number] 04/30/2019 10:00:00 PEN Preadmit MK CRONIN MD [facility] CROHNS DISEASE [id number] 12/20/2018 12:12:00 Document Registration
== END 2019-04-04 10:34 | disposition home or self-care (01) ==
LOC: EDUNIT# 09:37 → ER FS 09:38 → UNDOADMOB 11:33 → ICU 11:33 → UNDOADMOB 12:45 → ICU 12:45 → 4TH 15:52 → ICU 15:52 → UNDODISOB 04-04 12:30
PROVIDERS: ADMIT Family Medicine; ATTEND Family Medicine
DX: R00.0 Tachycardia, unspecified (principal); E86.0 Dehydration; T46.4X5A Adverse effect of angiotensin-converting-enzyme inhibitors, initial encounter; I48.0 Paroxysmal atrial fibrillation; G47.33 Obstructive sleep apnea (adult) (pediatric); I10 Essential (primary) hypertension; N40.0 Benign prostatic hyperplasia without lower urinary tract symptoms; K50.919 Crohn's disease, unspecified, with unspecified complications; E24.9 Cushing's syndrome, unspecified; F32.9 Major depressive disorder, single episode, unspecified; E66.9 Obesity, unspecified; Z68.34 Body mass index [BMI] 34.0-34.9, adult; Z87.891 Personal history of nicotine dependence; Z79.899 Other long term (current) drug therapy
CPT/HCPCS: 36415; 71045; 80053; 81000; 83735; 83880; 84443; 84484; 85025; 85610; 85730; 93005

== ENCOUNTER → 2019-04-19 | Outpatient (CLI) | payer MEDICARE, OTHER ==
[~2019-04-19] MED LIST changes: +APIX5TAB PO; +METO200T48 PO; +TAMS0.4C98 PO
[2019-04-19 10:39] LABS: BUN/CREATININE RATIO 13; CARBON DIOXIDE 25 MMOL/L (21-32); CHLORIDE 108 MMOL/L (98-107); CREATININE SERUM 0.96 MG/DL (0.60-1.30); GFR ESTIMATED > 60; GLUCOSE 123 MG/DL (70-105); POTASSIUM 4.1 MMOL/L (3.6-5.0); SODIUM 139 MMOL/L (135-145)
== END ==
LOC: LAB 10:01
PROVIDERS: ATTEND Nurse Practitioner Family
DX: I48.0 Paroxysmal atrial fibrillation (principal); G47.33 Obstructive sleep apnea (adult) (pediatric); Z79.01 Long term (current) use of anticoagulants
CPT/HCPCS: 36415; 80048; 83735

== ENCOUNTER 2019-06-09 18:09 | Emergency (ER) | payer MEDICARE, OTHER ==
[~2019-06-09] VITALS: Ht 182.9 cm; Wt 117.9 kg
--- NOTE | 2019-06-09 18:32 | ED Upper Extremity ---
General Stated Complaint: RT ARM FALL Source: patient Exam Limitations: no limitations History of Present Illness Date Seen by Provider: Jun 09, 2019 Time Seen by Provider: 18:20 Initial Comments 64-year-old male presents with right arm pain. Patient reports that he's been having on and off for a month or better. Over the last 36 hours or so has gotten worse and more persistent. Patient reports he gets worse with movement. No known injury. Patient is worried about a blood clot but is currently on blood thinners. Patient reports he was sleep and was started this time. He denies any injuries or trauma. Patient denies chest pain, shortness of breath, fevers chills or any other systemic complaints at this time. Allergies and Home Medications Allergies Coded Allergies: morphine (Unverified Allergy, Severe, HEART STOPPED, 11/17/18) hydromorphone HCl (Unverified Allergy, Unknown, HIVES, 11/14/18) oxycodone (Unverified Allergy, Unknown, HIVES, 11/14/18) infliximab-dyyb (Unverified Adverse Reaction, Severe, ATRIAL FIB, 12/05/18) PT WENT INTO A FIB WHILE RECEIVING INFUSION meperidine HCl (Unverified Adverse Reaction, Mild, N/V, 11/17/18) Home Medications Apixaban 5 Mg Tablet, 5 MG PO BID Prescribed by: PRANAY TORO on 04/04/19 1021 Azathioprine 50 Mg Tablet, 100 MG PO HS, (Reported) TAKES 2 (50MG) TABLETS Azathioprine 50 Mg Tablet, 150 MG PO DAILY, (Reported) TAKES 3 (50MG) TABLETS Cholestyramine 5 Gm Powder, 4 GM PO BID PRN for DIARRHEA, (Reported) Cyanocobalamin 1,000 Mcg/Ml Inj, 1,000 MCG IM MONTHLY, (Reported) Diphenoxylate HCl/Atropine 1 Each Tablet, 2 TAB PO QID PRN for DIARRHEA, (Re ported) Doxazosin Mesylate 1 Mg Tablet, 1 MG PO BID PRN for BLOOD PRESSURE, (Reported) USE IF SYSTOLIC BP IS <180 Ergocalciferol (Vitamin D2) 50,000 Unit Capsule, 50,000 UNIT PO Mo, (Reported) Fish Oil/Dha/Epa 1 Each Capsule, 1,200 MG PO DAILY, (Reported) Folic Acid 0.4 Mg Tablet, 0.4 MG PO DAILY, (Reported) Infliximab 100 Mg Soln, 10 MG IV Q6 WEEKS, (Reported) L.acidoph & Paracasei,B.lactis 1 Each Capsule, 1 CAP PO DAILY, (Reported) Loperamide HCl 2 Mg Tablet, 2 MG PO TID PRN for DIARRHEA, (Reported) Magnesium Oxide 400 Mg Tablet, 400 MG PO BID, (Reported) Metoprolol Succinate 200 Mg Tab.er.24h, 200 MG PO DAILY Prescribed by: PRANAY TORO on 04/04/19 1021 Montelukast Sodium 10 Mg Tablet, 10 MG PO HS, (Reported) Multivitamin 1 Each Tablet, 1 TAB PO DAILY, (Reported) Pantoprazole Sodium 40 Mg Tablet.dr, 40 MG PO DAILY, (Reported) Paroxetine HCl 20 Mg Tablet, 20 MG PO DAILY, (Reported) Potassium Citrate 10 Meq Tablet.er, 20 MEQ PO DAILY, (Reported) Potassium Citrate 10 Meq Tablet.er, 10 MEQ PO HS, (Reported) Simvastatin 10 Mg Tablet, 10 MG PO DAILY, (Reported) Tadalafil 5 Mg Tablet, 5 MG PO PRN, (Reported) Tamsulosin HCl 0.4 Mg Cap, 0.4 MG PO HS, (Reported) Patient Home Medication List Home Medication List Reviewed: Yes Review of Systems Constitutional: No chills, No dizziness, No fever Respiratory: no symptoms reported Gastrointestinal: no symptoms reported Genitourinary: no symptoms reported Musculoskeletal: see HPI Skin: no symptoms reported Psychiatric/Neurological: No Symptoms Reported Past Plgquhq-Pxyjkz-Qvgguc Hx Past Med/Social Hx: Reviewed Nursing Past Med/Soc Hx Patient Social History Type Used: Cigarettes Former Smoker, Quit: Oct 03, 2017 2nd Hand Smoke Exposure: No Recent Hopitalizations: No Immunizations Up To Date PED Vaccines UTD: Yes Date of Pneumonia Vaccine: Apr 03, 2018 Date of Influenza Vaccine: Aug 11, 2018 Seasonal Allergies Seasonal Allergies: Yes (TAKES ALLERGY SHOTS) Past Medical History Surgeries: Yes (SMALL BOWEL RESECTION) Abdominal, Appendectomy, Bowel Surgery, Gallbladder, Tonsillectomy, Transurethral Resection, Vasectomy Respiratory: Yes (TASH WITH CPAP) Currently Using CPAP: Yes Currently Using BIPAP: No Cardiac: Yes (CARDIOVERSION 11/16/18) Atrial Fibrillation, Hypertension Neurological: No Reproductive Disorders: No Sexually Transmitted Disease: No Genitourinary: Yes (HX ESWL) Benign Prostatic Hyperpl, Kidney Stones Gastrointestinal: Yes (REMICADE (ALLERGY INFLECTRA)) Abdominal Hernia, Crohns Disease Musculoskeletal: No Endocrine: Yes (CUSHINGS DISEASE) Adrenal Disease HEENT: No 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 Heart Disease, Diabetes, Other Conditions/Hx Physical Exam Vital Signs Vital Signs - First Documented 06/09/19 18:15 Temp 99.2 Pulse 66 Resp 18 B/P (MAP) 111/47 (68) Pulse Ox 95 O2 Delivery Room Air Capillary Refill : Height, Weight, BMI Height: 6'0.00" Weight: 254lbs. 0.0oz. 115.407826mz; 34.5 BMI Method:Stated General Appearance: WD/WN, no apparent distress HEENT: normal ENT inspection Neck: non-tender, full range of motion Cardiovascular: normal peripheral pulses, regular rate, rhythm Respiratory: chest non-tender, lungs clear, normal breath sounds Back: normal inspection Elbow/Forearm: pain (Pain is reproducible with extension and flexion of the right arm. The pain seems to mainly be in the forearm with less pain up in the shoulder.) Neurologic/Tendon: normal sensation, normal motor functions, normal tendon functions Neurologic/Psychiatric: alert, normal mood/affect, oriented x 3 Skin: normal color, warm/dry Progress/Results/Core Measures Results/Orders Lab Results Laboratory Tests Test 06/09/19 18:26 Range/Units White Blood Count 7.6 4.3-11.0 10^3/uL Red Blood Count 4.03 L 4.35-5.85 10^6/uL Hemoglobin 14.4 13.3-17.7 G/DL Hematocrit 44 40-54 % Mean Corpuscular Volume 109 H 80-99 FL Mean Corpuscular Hemoglobin 36 H 25-34 PG Mean Corpuscular Hemoglobin Concent 33 32-36 G/DL Red Cell Distribution Width 15.9 H 10.0-14.5 % Platelet Count 103 L 130-400 10^3/uL Mean Platelet Volume 11.7 H 7.4-10.4 FL Neutrophils (%) (Auto) 61 42-75 % Lymphocytes (%) (Auto) 22 12-44 % Monocytes (%) (Auto) 13 H 0-12 % Eosinophils (%) (Auto) 4 0-10 % Basophils (%) (Auto) 0 0-10 % Neutrophils # (Auto) 4.6 1.8-7.8 X 10^3 Lymphocytes # (Auto) 1.7 1.0-4.0 X 10^3 Monocytes # (Auto) 1.0 0.0-1.0 X 10^3 Eosinophils # (Auto) 0.3 0.0-0.3 10^3/uL Basophils # (Auto) 0.0 0.0-0.1 10^3/uL D-Dimer 0.33 0.00-0.49 UG/ML Sodium Level 143 135-145 MMOL/L Potassium Level 4.0 3.6-5.0 MMOL/L Chloride Level 106 98-107 MMOL/L Carbon Dioxide Level 24 21-32 MMOL/L Anion Gap 13 5-14 MMOL/L Blood Urea Nitrogen 14 7-18 MG/DL Creatinine 0.99 0.60-1.30 MG/DL Estimat Glomerular Filtration Rate > 60 BUN/Creatinine Ratio 14 Glucose Level 149 H 70-105 MG/DL Calcium Level 8.8 8.5-10.1 MG/DL Troponin I < 0.30 <0.30 NG/ML My Orders Orders - NINA EDWARDS DO Basic Metabolic Panel (06/09/19 18:20) Cbc With Automated Diff (06/09/19 18:20) Hs C Reactive Protein (06/09/19 18:20) Troponin I (06/09/19 18:20) Fibrin Degradation Products (06/09/19 18:20) Ekg Tracing (06/09/19 18:20) Shoulder 2 View Right (06/09/19 18:20) Ketorolac Injection (Toradol Injection) (06/09/19 18:45) Medications Given in ED Current Medications Medications Dose Ordered Sig/Rui Route Start Time Stop Time Status Last Admin Dose Admin Ketorolac Tromethamine 15 mg ONCE ONCE IVP 06/09/19 18:45 06/09/19 18:46 DC 06/09/19 18:47 15 MG Vital Signs/I&O 06/09/19 18:15 Temp 99.2 Pulse 66 Resp 18 B/P (MAP) 111/47 (68) Pulse Ox 95 O2 Delivery Room Air Progress Progress Note : Progress Note Review the labs, EKG and x-ray findings with patient. Discussed with him that symptoms are consistent with a tendinitis and rotator cuff pathology. Patient with a negative d-dimer and RA on blood thinners which very low probability of a blood clot causing his issues. I recommended patient follow-up with his primary care provider next week and concern orthopedic surgery consult. Patient is otherwise stable and discharged home in stable condition. Initial ECG Impression Date: Jun 09, 2019 Initial ECG Impression Time: 18:29 Initial ECG Rhythm: Normal Sinus Initial ECG Intervals: Normal Initial ECG Impression: Normal Comment NSR Diagnostic Imaging Diagonstic Imaging: Xray Plain Films/CT/US/NM/MRI: other (Right shoulder) Reviewed: Reviewed/Discussed Departure Impression Primary Impression: Right shoulder pain Qualified Codes: M25.511 - Pain in right shoulder Additional Impression: Pain in right arm Disposition: 01 HOME, SELF-CARE Condition: Stable Departure-Patient Inst. Referrals: MK CRONIN MD (PCP/Family) Primary Care Physician Patient Instructions: Rotator Cuff Injury (DC), Tendonitis (DC) Add. Discharge Instructions: Follow-up with your primary care provider or orthopedic surgeon in the next week. Tylenol or ibuprofen as needed for pain 4% lidocaine with menthol cream or gel to affected area as needed NINA EDWARDS DO Jun 09, 2019 18:32
[2019-06-09] MEDS ORDERED: KETOROLAC 30 MG/ML VIAL IVP ONE (18:45)
[2019-06-09 18:46] LABS: HEMOGLOBIN 14.4 G/DL (13.3-17.7); MEAN CORPUSCULAR HEMOGLOBIN 36 PG (25-34); WHITE BLOOD COUNT 7.6 10^3/uL (4.3-11.0)
[2019-06-09 18:47] LABS: BASOPHILS % (AUTO) 0 % (0-10); EOSINOPHILS # (AUTO) 0.3 10^3/uL (0.0-0.3); EOSINOPHILS % (AUTO) 4 % (0-10); HEMATOCRIT 44 % (40-54); LYMPHOCYTES # (AUTO) 1.7 X 10^3 (1.0-4.0); LYMPHOCYTES % (AUTO) 22 % (12-44); MEAN CORPUSCULAR HGB CONC 33 G/DL (32-36); MEAN CORPUSCULAR VOLUME 109 FL (80-99); MEAN PLATELET VOLUME 11.7 FL (7.4-10.4); MONOCYTES % (AUTO) 13 % (0-12); NEUTROPHILS # (AUTO) 4.6 X 10^3 (1.8-7.8); NEUTROPHILS % (AUTO) 61 % (42-75); PLATELET COUNT 103 10^3/uL (130-400); RED CELL DISTRIBUTION WIDTH 15.9 % (10.0-14.5)
--- NOTE | 2019-06-09 18:47 | Diagnostic Imaging Report ---
EXAMINATION: Two views of the right shoulder. INDICATION: Right arm pain x 2 days. No known injury. FINDINGS: There are osteoarthritic changes of both the acromioclavicular joint and the glenohumeral joint. The humeral head is mildly high riding which may relate to underlying rotator cuff pathology. There are no findings of an acute fracture. There is no suspicious bone lesion. IMPRESSION: AC joint and glenohumeral joint osteoarthritic changes. The humeral head is mildly high riding which can relate to underlying rotator cuff pathology. There are no findings of an acute fracture or dislocation. Dictated by: Dictated on workstation # [id number]
[2019-06-09 18:57] LABS: BUN/CREATININE RATIO 14; CALCIUM 8.8 MG/DL (8.5-10.1); CARBON DIOXIDE 24 MMOL/L (21-32); CHLORIDE 106 MMOL/L (98-107); CREATININE SERUM 0.99 MG/DL (0.60-1.30); GFR ESTIMATED > 60; GLUCOSE 149 MG/DL (70-105); SODIUM 143 MMOL/L (135-145)
[2019-06-09 19:45] VITALS: BP 160/90
== END 2019-06-09 19:48 | disposition home or self-care (01) ==
LOC: EDUNIT# 18:09 → ER FS 18:10
DX: M25.511 Pain in right shoulder (principal); M79.601 Pain in right arm; G47.33 Obstructive sleep apnea (adult) (pediatric); I10 Essential (primary) hypertension; I48.91 Unspecified atrial fibrillation; N40.0 Benign prostatic hyperplasia without lower urinary tract symptoms; F32.9 Major depressive disorder, single episode, unspecified; Z85.828 Personal history of other malignant neoplasm of skin; Z87.19 Personal history of other diseases of the digestive system; Z87.442 Personal history of urinary calculi; Z88.5 Allergy status to narcotic agent; Z88.8 Allergy status to other drugs, medicaments and biological substances; Z87.891 Personal history of nicotine dependence; Z90.49 Acquired absence of other specified parts of digestive tract; Z90.89 Acquired absence of other organs
CPT/HCPCS: 36415; 73030; 80048; 84484; 85025; 85379; 86141; 93005; 96374

== ENCOUNTER → 2019-07-09 | Outpatient (CLI) | payer MEDICARE, OTHER ==
--- NOTE | 2019-07-09 11:43 | Diagnostic Imaging Report ---
INDICATION: Right-sided neck pain and finger numbness. TIME OF EXAM: 10:15 a.m. FINDINGS: Multiple views of cervical spine were obtained. Alignment is normal. There is straightening of the normal cervical lordotic curvature. There is multilevel degenerative disc disease with variable disc space narrowing and marginal spurring, greatest at C5-C6 and C6-C7 levels. Prevertebral tissues are normal. No fractures are identified. IMPRESSION: Cervical spondylosis. No acute bony abnormality is detected. Dictated by: Dictated on workstation # [id number]
== END ==
LOC: ORTHO 09:14
PROVIDERS: ATTEND Orthopaedic Surgery
DX: M47.812 Spondylosis without myelopathy or radiculopathy, cervical region (principal); M50.30 Other cervical disc degeneration, unspecified cervical region
CPT/HCPCS: 72050; 99203

== ENCOUNTER 2019-08-03 11:52 | Emergency (ER) | payer MEDICARE, OTHER ==
[~2019-08-03] VITALS: Ht 182.9 cm; Wt 121.8 kg
[~2019-08-03 11:52] MED LIST changes: +LISI1TAB26 PO; -MAGN400T6 PO; +MAGN400T8 PO; +SIMV10TA26 PO; -TAMS0.4C98 PO; +TMSL.4C PO; +TRM50T PO
--- NOTE | 2019-08-03 12:41 | ED General ---
General Chief Complaint: - Urinary Stated Complaint: RT FLANK/ABD PAIN History of Present Illness Date Seen by Provider: Aug 03, 2019 Time Seen by Provider: 12:38 Initial Comments 64-year-old male started in a few hours ago with right CVA right flank and into the right suprapubic pain does not have diffuse abdominal pain has not had nausea vomiting Patient says he's had multiple kidney stones a decade ago had several episodes apparently requiring intervention Allergies and Home Medications Allergies Coded Allergies: morphine (Unverified Allergy, Severe, HEART STOPPED, 11/17/18) hydromorphone HCl (Unverified Allergy, Unknown, HIVES, 11/14/18) oxycodone (Unverified Allergy, Unknown, HIVES, 11/14/18) infliximab-dyyb (Unverified Adverse Reaction, Severe, ATRIAL FIB, 12/05/18) PT WENT INTO A FIB WHILE RECEIVING INFUSION meperidine HCl (Unverified Adverse Reaction, Mild, N/V, 11/17/18) Home Medications Apixaban 5 Mg Tablet, 5 MG PO BID Prescribed by: PRANAY TORO on 04/04/19 1021 Azathioprine 50 Mg Tablet, 100 MG PO HS, (Reported) TAKES 2 (50MG) TABLETS Azathioprine 50 Mg Tablet, 150 MG PO DAILY, (Reported) TAKES 3 (50MG) TABLETS Cholestyramine 5 Gm Powder, 4 GM PO BID PRN for DIARRHEA, (Reported) Cyanocobalamin 1,000 Mcg/Ml Inj, 1,000 MCG IM MONTHLY, (Reported) Diphenoxylate HCl/Atropine 1 Each Tablet, 2 TAB PO QID PRN for DIARRHEA, (Reported) Doxazosin Mesylate 1 Mg Tablet, 1 MG PO BID PRN for BLOOD PRESSURE, (Reported) USE IF SYSTOLIC BP IS <180 Ergocalciferol (Vitamin D2) 50,000 Unit Capsule, 50,000 UNIT PO Mo, (Reported) Fish Oil/Dha/Epa 1 Each Capsule, 1,200 MG PO DAILY, (Reported) Folic Acid 0.4 Mg Tablet, 0.4 MG PO DAILY, (Reported) Infliximab 100 Mg Soln, 10 MG IV Q6 WEEKS, (Reported) L.acidoph & Paracasei,B.lactis 1 Each Capsule, 1 CAP PO DAILY, (Reported) Loperamide HCl 2 Mg Tablet, 2 MG PO TID PRN for DIARRHEA, (Reported) Magnesium Oxide 400 Mg Tablet, 400 MG PO BID, (Reported) Metoprolol Succinate 200 Mg Tab.er.24h, 200 MG PO DAILY Prescribed by: PRANAY TORO on 04/04/19 1021 Montelukast Sodium 10 Mg Tablet, 10 MG PO HS, (Reported) Multivitamin 1 Each Tablet, 1 TAB PO DAILY, (Reported) Pantoprazole Sodium 40 Mg Tablet.dr, 40 MG PO DAILY, (Reported) Paroxetine HCl 20 Mg Tablet, 20 MG PO DAILY, (Reported) Potassium Citrate 10 Meq Tablet.er, 20 MEQ PO DAILY, (Reported) Potassium Citrate 10 Meq Tablet.er, 10 MEQ PO HS, (Reported) Simvastatin 10 Mg Tablet, 10 MG PO DAILY, (Reported) Tadalafil 5 Mg Tablet, 5 MG PO PRN, (Reported) Tamsulosin HCl 0.4 Mg Cap, 0.4 MG PO HS, (Reported) Patient Home Medication List Home Medication List Reviewed: Yes Review of Systems Review of Systems Constitutional: No diaphoresis, No dizziness, No fever EENTM: no symptoms reported Respiratory: no symptoms reported Cardiovascular: no symptoms reported Gastrointestinal: No nausea, No vomiting Genitourinary: pain Musculoskeletal: no symptoms reported Past Staqahp-Frgqdt-Hekdzm Hx Patient Social History Type Used: Cigarettes Former Smoker, Quit: Oct 03, 2013 2nd Hand Smoke Exposure: No Recent Foreign Travel: No Recent Hopitalizations: No Immunizations Up To Date PED Vaccines UTD: Yes Date of Pneumonia Vaccine: Apr 03, 2018 Date of Influenza Vaccine: Aug 11, 2018 Seasonal Allergies Seasonal Allergies: Yes (TAKES ALLERGY SHOTS) Past Medical History Surgeries: Yes (SMALL BOWEL RESECTION) Abdominal, Appendectomy, Bowel Surgery, Gallbladder, Tonsillectomy, Transurethral Resection, Vasectomy Respiratory: Yes (TASH WITH CPAP) Currently Using CPAP: Yes Currently Using BIPAP: No Cardiac: Yes (CARDIOVERSION 11/16/18) Atrial Fibrillation, Hypertension Neurological: No Reproductive Disorders: No Sexually Transmitted Disease: No Genitourinary: Yes (HX ESWL) Benign Prostatic Hyperpl, Kidney Stones Gastrointestinal: Yes (REMICADE (ALLERGY INFLECTRA)) Abdominal Hernia, Crohns Disease Musculoskeletal: No Endocrine: Yes (CUSHINGS DISEASE) Adrenal Disease HEENT: No 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 Heart Disease, Diabetes, Other Conditions/Hx Physical Exam Vital Signs Vital Signs - First Documented 08/03/19 12:10 Temp 37.0 Pulse 63 Resp 18 B/P (MAP) 128/58 (81) Pulse Ox 96 O2 Delivery Room Air Capillary Refill : Height, Weight, BMI Height: 6'0" Weight: 260lbs. 0.0oz. 117.819150lv; 34.5 BMI Method:Stated General Appearance: No Apparent Distress Eyes: Bilateral Eye PERRL, Bilateral Eye EOMI Neck: Supple Respiratory: Lungs Clear Cardiovascular: Regular Rate, Rhythm Gastrointestinal: Normal Bowel Sounds, Non Tender, Soft Progress/Results/Core Measures Suspected Sepsis SIRS Temperature: Pulse: Respiratory Rate: Laboratory Tests 08/03/19 12:15: White Blood Count 5.9 Blood Pressure / Mean: Laboratory Tests 08/03/19 12:15: Creatinine 0.96, Platelet Count 131, Total Bilirubin 0.6 Results/Orders Lab Results Laboratory Tests Test 08/03/19 12:10 08/03/19 12:15 Range/Units Urine Color YELLOW Urine Clarity CLEAR Urine pH 6.5 5-9 Urine Specific [place] 1.020 1.016-1.022 Urine Protein NEGATIVE NEGATIVE Urine Glucose (UA) NEGATIVE NEGATIVE Urine Ketones NEGATIVE NEGATIVE Urine Nitrite NEGATIVE NEGATIVE Urine Bilirubin NEGATIVE NEGATIVE Urine Urobilinogen 0.2 NORMAL MG/DL Urine Leukocyte Esterase NEGATIVE NEGATIVE Urine RBC (Auto) 3+ H NEGATIVE Urine RBC 50-100 H /HPF Urine WBC NONE /HPF Urine Squamous Epithelial Cells RARE /HPF Urine Crystals PRESENT H /LPF Urine Calcium Oxalate Crystals RARE H /LPF Urine Bacteria NONE /HPF Urine Casts NONE /LPF Urine Mucus NEGATIVE /LPF Urine Culture Indicated NO White Blood Count 5.9 4.3-11.0 10^3/uL Red Blood Count 3.86 L 4.35-5.85 10^6/uL Hemoglobin 14.0 13.3-17.7 G/DL Hematocrit 42 40-54 % Mean Corpuscular Volume 109 H 80-99 FL Mean Corpuscular Hemoglobin 36 H 25-34 PG Mean Corpuscular Hemoglobin Concent 33 32-36 G/DL Red Cell Distribution Width 15.0 H 10.0-14.5 % Platelet Count 131 130-400 10^3/uL Mean Platelet Volume 11.8 H 7.4-10.4 FL Neutrophils (%) (Auto) 52 42-75 % Lymphocytes (%) (Auto) 33 12-44 % Monocytes (%) (Auto) 11 0-12 % Eosinophils (%) (Auto) 3 0-10 % Basophils (%) (Auto) 1 0-10 % Neutrophils # (Auto) 3.1 1.8-7.8 X 10^3 Lymphocytes # (Auto) 2.0 1.0-4.0 X 10^3 Monocytes # (Auto) 0.6 0.0-1.0 X 10^3 Eosinophils # (Auto) 0.2 0.0-0.3 10^3/uL Basophils # (Auto) 0.0 0.0-0.1 10^3/uL Sodium Level 143 135-145 MMOL/L Potassium Level 4.3 3.6-5.0 MMOL/L Chloride Level 106 98-107 MMOL/L Carbon Dioxide Level 25 21-32 MMOL/L Anion Gap 12 5-14 MMOL/L Blood Urea Nitrogen 13 7-18 MG/DL Creatinine 0.96 0.60-1.30 MG/DL Estimat Glomerular Filtration Rate > 60 BUN/Creatinine Ratio 14 Glucose Level 136 H 70-105 MG/DL Calcium Level 8.9 8.5-10.1 MG/DL Corrected Calcium 8.8 8.5-10.1 MG/DL Total Bilirubin 0.6 0.1-1.0 MG/DL Aspartate Amino Transf (AST/SGOT) 27 5-34 U/L Alanine Aminotransferase (ALT/SGPT) 20 0-55 U/L Alkaline Phosphatase 113 40-136 U/L Total Protein 6.8 6.4-8.2 GM/DL Albumin 4.1 3.2-4.5 GM/DL My Orders Orders - TORRES ROBERTSON MD Iv Heplock-Insert (Order) (08/03/19 12:29) Urinalysis (08/03/19 12:29) Cbc With Automated Diff (08/03/19 12:29) Comprehensive Metabolic Panel (08/03/19 12:29) Ct Abd/Pelvis Wo(Kidney Stone) (08/03/19 12:35) Ketorolac Injection (Toradol Injection) (08/03/19 12:45) Medications Given in ED Current Medications Medications Dose Ordered Sig/Rui Route Start Time Stop Time Status Last Admin Dose Admin Ketorolac Tromethamine 30 mg ONCE ONCE IVP 08/03/19 12:45 08/03/19 12:46 DC 08/03/19 12:49 30 MG Vital Signs/I&O 08/03/19 12:10 Temp 37.0 Pulse 63 Resp 18 B/P (MAP) 128/58 (81) Pulse Ox 96 O2 Delivery Room Air Capillary Refill : Progress Note : Progress Note UA shows 50-100 red cells is otherwise negative CBC normal CMP normal CT shows bilateral nephrolithiasis and renal cysts but no ureteral calculi and no hydronephrosis The patient has no pain at this time suspect that the stone on the right has slipped into the bladder or he's passed it Departure Impression Primary Impression: Kidney stone Disposition: 01 HOME, SELF-CARE Condition: Improved Departure-Patient Inst. Referrals: MK CRONIN MD (PCP/Family) Primary Care Physician Patient Instructions: Kidney Stones (DC) TORRES ROBERTSON MD Aug 03, 2019 12:41 POS
[2019-08-03] MEDS ORDERED: KETOROLAC 30 MG/ML VIAL IVP ONE (12:45)
[2019-08-03 12:47] LABS: BILIRUBIN,URINE NEGATIVE (NEGATIVE); CALCIUM OXALATE CRYSTALS,UR RARE /LPF; CLARITY,URINE CLEAR; COLOR,URINE YELLOW; GLUCOSE, URINE (UA) NEGATIVE (NEGATIVE); KETONES,URINE NEGATIVE (NEGATIVE); LEUKOCYTE ESTERASE ,URINE NEGATIVE (NEGATIVE); NITRITE,URINE NEGATIVE (NEGATIVE); PH,URINE 6.5 (5-9); PROTEIN,URINE NEGATIVE (NEGATIVE); RBC,URINE 50-100 /HPF; SQUAMOUS EPITHELIAL CELL,UR RARE /HPF
[2019-08-03 12:48] LABS: BASOPHILS % (AUTO) 1 % (0-10); EOSINOPHILS # (AUTO) 0.2 10^3/uL (0.0-0.3); EOSINOPHILS % (AUTO) 3 % (0-10); HEMATOCRIT 42 % (40-54); LYMPHOCYTES % (AUTO) 33 % (12-44); MEAN CORPUSCULAR HEMOGLOBIN 36 PG (25-34); MEAN CORPUSCULAR HGB CONC 33 G/DL (32-36); MEAN CORPUSCULAR VOLUME 109 FL (80-99); MEAN PLATELET VOLUME 11.8 FL (7.4-10.4); MONOCYTES # (AUTO) 0.6 X 10^3 (0.0-1.0); MONOCYTES % (AUTO) 11 % (0-12); NEUTROPHILS # (AUTO) 3.1 X 10^3 (1.8-7.8); NEUTROPHILS % (AUTO) 52 % (42-75); PLATELET COUNT 131 10^3/uL (130-400); WHITE BLOOD COUNT 5.9 10^3/uL (4.3-11.0)
[2019-08-03 12:54] LABS: SODIUM 143 MMOL/L (135-145)
[2019-08-03 12:55] LABS: ALANINE AMINOTRANSFERASE 20 U/L (0-55); ALBUMIN 4.1 GM/DL (3.2-4.5); ALKALINE PHOSPHATASE 113 U/L (40-136); BILIRUBIN,TOTAL 0.6 MG/DL (0.1-1.0); BUN/CREATININE RATIO 14; CALCIUM 8.9 MG/DL (8.5-10.1); CARBON DIOXIDE 25 MMOL/L (21-32); CHLORIDE 106 MMOL/L (98-107); CREATININE SERUM 0.96 MG/DL (0.60-1.30); GFR ESTIMATED > 60; GLUCOSE 136 MG/DL (70-105); POTASSIUM 4.3 MMOL/L (3.6-5.0); TOTAL PROTEIN 6.8 GM/DL (6.4-8.2)
--- NOTE | 2019-08-03 13:12 | Diagnostic Imaging Report ---
PROCEDURE: CT urinary tract, rule out kidney stone. TECHNIQUE: Multiple contiguous axial images were obtained through the abdomen and pelvis without the use of intravenous contrast. Auto Exposure Controls were utilized during the CT exam to meet ALARA standards for radiation dose reduction. INDICATION: Right flank pain. COMPARISON: Correlation is made with prior CT from 12/05/2018. FINDINGS: The lung bases are clear. No discrete liver mass is identified. The gallbladder is surgically absent. No biliary ductal dilatation is seen. The pancreas and spleen are unremarkable. No adrenal mass is detected. There appear to be bilateral nonobstructing renal calculi. Largest calculus on the right is in the upper pole measuring 4 mm. Calculus on the left in the lower pole measures 5 to 6 mm. A low-density mass in the lower pole of the left kidney is seen measuring 4.5 cm and most suggestive of a cyst. This is similar to prior exam. Small cortical low densities involving the right kidney are noted. No ureteral calculi are detected. There is no hydronephrosis. No definite bladder calculi are seen. Prostate is normal in size. Aorta and iliac vessels are calcified but non-aneurysmal. The small and large bowel loops are normal caliber. There is no obstruction. No free fluid or fluid collection is seen. IMPRESSION: 1. Bilateral nonobstructing nephrolithiasis. No definite ureteral calculi or hydronephrosis is seen. 2. Bilateral renal cysts. 3. No other significant abnormality is detected. Dictated by: Dictated on workstation # [id number]
[2019-08-03 13:50] VITALS: BP 122/65
--- OUTSIDE RECORDS SUMMARY | 2019-08-27 06:03 | XMS REPORT | Continuity of Care Document ---
Author Organization Unknown POS Address Unknown SP Phone Unavailable SP Allergies Active Description Code Type Severity POS Reaction Onset Reported/Identified POS to Patient Clinical Status POS Yes hydromorphone HCl [id number] Drug Allergy SP Unknown HIVES 11/14/2018 SP SP Yes meperidine HCl [id number] Dr ug Allergy SP Unknown N/V 11/14/2018 SP SP Yes oxycodone [id number] Drug Allergy SP HIVES 11/14/2018 SP Yes morphine [id number] Drug Allergy SP HEART STOPPED 11/17/2018 SP SP Yes meperidine HCl [id number] Dr ug Allergy SP Mild N/V 11/17/2018 SP Yes infliximab-dyyb [id number] D rug Allergy SP Severe ATRIAL FIB 12/05/2018 SP SP Medications There is no data. Problems Date Dx Coded Attending Type Code POS Diagnosed By POS 11/14/2018 MK CRONIN MD Ot K50.90 SP DISEASE, UNSPECIFIED, WITHOUT CO SP 11/14/2018 MK CRONIN MD Ot K50.90 SP DISEASE, UNSPECIFIED, WITHOUT CO SP 11/15/2018 LUIZA JUÁREZ Ot I10 SP (PRIMARY) HYPERTENSION SP 11/15/2018 LUIZA JUÁREZ Ot R07.89 SP CHEST PAIN SP 11/15/2018 LUIZA JUÁREZ Ot R11.2 SP WITH VOMITING, UNSPECIFIED SP 11/15/2018 LUIZA JUÁREZ Ot T50.995A SP EFFECT OF DRUG/MEDS/BIOL SUBST, SP 11/15/2018 LUIZA JUÁREZ Ot Z79.52 LONG SPTERM (CURRENT) USE OF SYSTEMIC STER SP 11/15/2018 LUIZA JUÁREZ Ot Z87.19 SP HISTORY OF OTHER DISEASES OF TH SP 11/15/2018 LUIZA JUÁREZ Ot Z87.442 SP HISTORY OF URINARY CALCULI SP 11/15/2018 LUIZA JUÁREZ Ot Z88.5 SP STATUS TO NARCOTIC AGENT STATUS SP 11/15/2018 BERNOT, LUIZA Ot Z88.8 SP STATUS TO OTH DRUG/MEDS/BIOL SUB SP 11/15/2018 LYNSEY JUÁREZIS Ot Z90.79 SP ABSENCE OF OTHER GENITAL ORGAN( SP 11/15/2018 LYNSEY JUÁREZIS Ot Z90.89 SP ABSENCE OF OTHER ORGANS SP 11/15/2018 LYNSEY JUÁREZIS Ot Z98.890 SP SPECIFIED POSTPROCEDURAL STATES SP 11/15/2018 ROSEANNE CHACON, MK Velazquez Ot K50.90 SP DISEASE, UNSPECIFIED, WITHOUT CO SP 11/16/2018 LUIZA JUÁREZ Ot I10 SP (PRIMARY) HYPERTENSION SP 11/16/2018 LYNSEY JUÁREZIS Ot R07.89 SP CHEST PAIN SP 11/16/2018 LYNSEY JUÁREZIS Ot R11.2 SP WITH VOMITING, UNSPECIFIED SP 11/16/2018 LYNSEY JUÁREZIS Ot T50.995A SP EFFECT OF DRUG/MEDS/BIOL SUBST, SP 11/16/2018 LUIZA JUÁREZ Ot Z79.52 LONG SPTERM (CURRENT) USE OF SYSTEMIC STER SP 11/16/2018 LYNSEY JUÁREZIS Ot Z87.19 SP HISTORY OF OTHER DISEASES OF TH SP 11/16/2018 LYNSEY JUÁREZIS Ot Z87.442 SP HISTORY OF URINARY CALCULI SP 11/16/2018 LYNSEY JUÁREZIS Ot Z88.5 SP STATUS TO NARCOTIC AGENT STATUS SP 11/16/2018 LYNSEY JUÁREZIS Ot Z88.8 SP STATUS TO OTH DRUG/MEDS/BIOL SUB SP 11/16/2018 LYNSEY JUÁREZIS Ot Z90.79 SP ABSENCE OF OTHER GENITAL ORGAN( SP 11/16/2018 LYNSEY JUÁREZIS Ot Z90.89 SP ABSENCE OF OTHER ORGANS SP 11/16/2018 LYNSEY JUÁREZIS Ot Z98.890 SP SPECIFIED POSTPROCEDURAL STATES SP 11/21/2018 PRANAY TORO MD Ot A41. 9 SP UNSPECIFIED ORGANISM SP 11/21/2018 PRANAY TORO MD Ot D69. 6 SP UNSPECIFIED SP 11/21/2018 PRANAY TORO MD Ot E24. 9 SP SYNDROME, UNSPECIFIED SP 11/21/2018 PRANAY TORO MD Ot E83. 42 SP SP 11/21/2018 PRANAY TORO MD Ot E87. 1 SPOSMOLALITY AND HYPONATREMIA SP 11/21/2018 PRANAY TORO MD Ot E87. 6 SP SP 11/21/2018 PRANAY TORO MD Ot I10 SP (PRIMARY) HYPERTENSION SP 11/21/2018 CORTEZ CHACON, PRANAY Velazquez Ot I48. 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 0 SP KIDNEY FAILURE WITH TUBULAR NECROS SP 11/21/2018 PRANAY TORO MD Ot N20. 0 SP OF KIDNEY SP 11/21/2018 PRANAY TORO MD Ot N30. 00 SP CYSTITIS WITHOUT HEMATURIA SP 11/21/2018 PRANAY TORO MD Ot R65. 21 SP SEPSIS WITH SEPTIC SHOCK SP 11/22/2018 PRANAY TORO MD Ot A41. 1 SP DUE TO OTHER SPECIFIED STAPHYLOCO SP 11/22/2018 PRANAY TORO MD Ot D69. 6 SP UNSPECIFIED SP 11/22/2018 PRANAY TORO MD Ot E24. 9 SP SYNDROME, UNSPECIFIED SP 11/22/2018 PRANAY TORO MD Ot E83. 42 SP SP 11/22/2018 PRANAY TORO MD Ot E86. 9 SP DEPLETION, UNSPECIFIED SP 11/22/2018 PRANAY TORO MD Ot E87. 1 SPOSMOLALITY AND HYPONATREMIA SP 11/22/2018 PRANAY TORO MD Ot E87. 6 SP SP 11/22/2018 PRANAY TORO MD Ot I10 SP (PRIMARY) HYPERTENSION SP 11/22/2018 PRANAY TORO MD Ot I48. 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 2 SP MALABSORPTION, NOT ELSEWHER SP 11/22/2018 PRANAY TORO MD Ot N17. 0 SP KIDNEY FAILURE WITH TUBULAR NECROS SP 11/22/2018 PRANAY TORO MD Ot N20. 0 SP OF KIDNEY SP 11/22/2018 PRANAY TORO MD Ot N30. 00 SP CYSTITIS WITHOUT HEMATURIA SP 11/22/2018 PRANAY TORO MD Ot R65. 21 SP SEPSIS WITH SEPTIC SHOCK SP 12/05/2018 LAURA ANTOINE MD Ot I10 SP (PRIMARY) HYPERTENSION SP 12/05/2018 LAURA ANTOINE MD Ot K50.90 SP CROHN'S DISEASE, UNSPECIFIED, WITHOUT CO SP 12/05/2018 LAURA ANTOINE MD Ot R07.89 SP OTHER CHEST PAIN SP 12/05/2018 LAURA ANTOINE MD Ot Z79.52 SP GROUP HOME (CURRENT) USE OF SYSTEMIC STER SP 12/05/2018 LAURA ANTOINE MD Ot Z79.[address] INTERPRETER (CURRENT) USE OF ASPIRIN SP 12/05/2018 LAURA ANTOINE MD Ot Z85.828 SP PERSONAL HISTORY OF OTHER MALIGNANT NEOP SP 12/05/2018 LAURA ANTOINE MD Ot Z87.19 SP PERSONAL HISTORY OF OTHER DISEASES OF TH SP 12/05/2018 LAURA ANTOINE MD Ot Z87.442 SP PERSONAL HISTORY OF URINARY CALCULI SP 12/05/2018 LAURA ANTOINE MD Ot Z88 .5 SP STATUS TO NARCOTIC AGENT STATUS SP 12/05/2018 LAURA ANTOINE MD Ot Z88 .8 SP STATUS TO OTH DRUG/MEDS/BIOL SUB SP 12/05/2018 LAURA ANTOINE MD Ot Z90.49 SP ACQUIRED ABSENCE OF OTHER SPECIFIED PART SP 12/05/2018 LAURA ANTOINE MD Ot Z90.89 SP ACQUIRED ABSENCE OF OTHER ORGANS SP 12/05/2018 LAURA ANTOINE MD Ot Z98.52 SP VASECTOMY STATUS SP 12/05/2018 LAURA ANTOINE MD Ot Z98.890 SP OTHER SPECIFIED POSTPROCEDURAL STATES SP 12/05/2018 MK CRONIN MD Ot K50.90 SP DISEASE, UNSPECIFIED, WITHOUT CO SP 12/07/2018 LAURA ANTOINE MD Ot I10 SP (PRIMARY) HYPERTENSION SP 12/07/2018 LAURA ANTOINE MD Ot K50.90 SP CROHN'S DISEASE, UNSPECIFIED, WITHOUT CO SP 12/07/2018 LAURA ANTOINE MD Ot R07.89 SP OTHER CHEST PAIN SP 12/07/2018 LAURA ANTOINE MD Ot Z79.[address] INTERPRETER (CURRENT) USE OF SYSTEMIC STER SP 12/07/2018 LAURA ANTOINE MD Ot Z79.82 SP GROUP HOME (CURRENT) USE OF ASPIRIN SP 12/07/2018 LAURA ANTOINE MD Ot Z85.828 SP PERSONAL HISTORY OF OTHER MALIGNANT NEOP SP 12/07/2018 LAURA ANTOINE MD Ot Z87.19 SP PERSONAL HISTORY OF OTHER DISEASES OF TH SP 12/07/2018 LAURA ANTOINE MD Ot Z87.442 SP PERSONAL HISTORY OF URINARY CALCULI SP 12/07/2018 LAURA ANTOINE MD Ot Z88 .5 SP STATUS TO NARCOTIC AGENT STATUS SP 12/07/2018 LAURA ANTOINE MD Ot Z88 .8 SP STATUS TO [facility] DRUG/MEDS/BIOL SUB SP 12/07/2018 LAURA ANTOINE MD Ot Z90.49 SP ACQUIRED ABSENCE OF OTHER SPECIFIED PART SP 12/07/2018 LAURA ANTOINE MD Ot Z90.89 SP ACQUIRED ABSENCE OF OTHER ORGANS SP 12/07/2018 LAURA ANTOINE MD Ot Z98.52 SP VASECTOMY STATUS SP 12/07/2018 LAURA ANTOINE MD Ot Z98.890 SP OTHER SPECIFIED POSTPROCEDURAL STATES SP 12/14/2018 MK CRONIN MD Ot K50.90 SP DISEASE, UNSPECIFIED, WITHOUT CO SP 12/21/2018 Ot 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 SP SMALL INTESTINE WITHO SP 12/25/2018 MK CRONIN MD Ot K50.00 SP DISEASE OF SMALL INTESTINE WITHO SP 12/25/2018 MK CRONIN MD Ot K50.00 SP DISEASE OF SMALL INTESTINE WITHO SP 12/25/2018 MK CRONIN MD Ot K50.00 SP DISEASE OF SMALL INTESTINE WITHO SP 12/26/2018 MK CRONIN MD Ot K50.90 SP DISEASE, UNSPECIFIED, WITHOUT CO SP 12/26/2018 MK CRONIN MD Ot K50.90 SP DISEASE, UNSPECIFIED, WITHOUT CO SP 01/03/2019 JOSEF CHACON FACC, ALI FACP CCDS Ot E87.8 SP OT DISORDERS OF ELECTROLYTE AND FLUID B SP 01/03/2019 JOSEF CHACON FACC, ALI FACP CCDS Ot G47.33 SP OBSTRUCTIVE SLEEP APNEA (ADULT) (PEDIATR SP 01/03/2019 JOSEF CHACON FACC, ALI FACP CCDS Ot I48.0 SP PAROXYSMAL ATRIAL FIBRILLATION SP 01/03/2019 JOSEF CAMPBELLC, ALI FACP CCDS Ot K50.90 SP CROHN'S DISEASE, UNSPECIFIED, WITHOUT CO SP 01/03/2019 JOSEF CHACON FACC, ALI FACP CCDS Ot R06.02 SP SHORTNESS OF BREATH SP 01/08/2019 MK CRONIN MD Ot K50.90 SP DISEASE, UNSPECIFIED, WITHOUT CO SP 01/11/2019 Ot 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 SP SMALL INTESTINE WITHO SP 01/26/2019 JOSEF CHACON FACC, ALI FACP CCDS Ot E87.8 SP OTH DISORDERS OF ELECTROLYTE AND FLUID B SP 01/26/2019 JOSEF CHACON FACC, ALI FACP CCDS Ot G47.33 SP OBSTRUCTIVE SLEEP APNEA (ADULT) (PEDIATR SP 01/26/2019 JOSEF CHACON FACC, ALI FACP CCDS Ot I48.0 SP PAROXYSMAL ATRIAL FIBRILLATION SP 01/26/2019 JOSEF CAMPBELLC, ALI FACP CCDS Ot K50.90 SP CROHN'S DISEASE, UNSPECIFIED, WITHOUT CO SP 01/26/2019 JOSEF CAMPBELLC, ALI FACP CCDS Ot R06.02 SP SHORTNESS OF BREATH SP 01/29/2019 MK CRONIN MD Ot K50.90 SP DISEASE, UNSPECIFIED, WITHOUT CO SP 01/30/2019 JOSEF CHACON FACC, ALI FACP CCDS Ot E66.9 SP OBESITY, UNSPECIFIED SP 01/30/2019 JOSEF CHACON FACC, ALI FACP CCDS Ot G47.33 SP OBSTRUCTIVE SLEEP APNEA (ADULT) (PEDIATR SP 01/30/2019 JOSEF CAMPBELLC, ALI FACP CCDS Ot I10 SP ESSENTIAL (PRIMARY) HYPERTENSION SP 01/30/2019 JOSEF CAMPBELLC, ALI FACP CCDS Ot I48.0 SP PAROXYSMAL ATRIAL FIBRILLATION SP 01/30/2019 JOSEF CHACON FACC, ALI FACP CCDS Ot K50.90 SP CROHN'S DISEASE, UNSPECIFIED, WITHOUT CO SP 01/30/2019 JOSEF CAMPBELLC, ALI FACP CCDS Ot R07.89 SP OTHER CHEST PAIN SP 01/30/2019 JOSEF CHACON FACC, ALI FACP CCDS Ot Z68.35 SP BODY MASS INDEX (BMI) 35.0-35.9, ADULT SP 01/30/2019 JOSEF CAMPBELLC, ALI FACP CCDS Ot Z79.[address] INTERPRETER (CURRENT) USE OF ANTICOAGULANT SP 01/30/2019 JOSEF CHACON FACC, ALI FACP CCDS Ot SP OTHER COURT INTERPRETER (CURRENT) DRUG THERAPY SP 01/30/2019 JOSEF CAMPBELLC, ALI FACP CCDS Ot SP PERSONAL HISTORY OF NICOTINE DEPENDENCE SP 01/30/2019 JOSEF CHACON FACC, ALI FACP CCDS Ot Z99.89 SP DEPENDENCE ON OTHER ENABLING MACHINES AN SP 02/01/2019 JOSEF CAMPBELLC, ALI FACP CCDS Ot E66.9 SP OBESITY, UNSPECIFIED SP 02/01/2019 JOSEF CHACON FACC, ALI FACP CCDS Ot G47.33 SP OBSTRUCTIVE SLEEP APNEA (ADULT) (PEDIATR SP 02/01/2019 JOSEF CAMPBELLC, ALI FACP CCDS Ot I10 SP ESSENTIAL (PRIMARY) HYPERTENSION SP 02/01/2019 JOSEF CAMPBELLC, ALI FACP CCDS Ot I48.0 SP PAROXYSMAL ATRIAL FIBRILLATION SP 02/01/2019 JOSEF CAMPBELLC, ALI FACP CCDS Ot K50.90 SP CROHN'S DISEASE, UNSPECIFIED, WITHOUT CO SP 02/01/2019 JOSEF CAMPBELL, ALI FACP CCDS Ot R07.89 SP OTHER CHEST PAIN SP 02/01/2019 JOSEF CAMPBELLC, ALI FACP CCDS Ot Z68.35 SP BODY MASS INDEX (BMI) 35.0-35.9, ADULT SP 02/01/2019 JOSEF CAMPBELL, ALI FACP CCDS Ot Z79.01 SP GROUP HOME (CURRENT) USE OF ANTICOAGULANT SP 02/01/2019 JOSEF CHACON FACC, ALI FACP CCDS Ot SP OTHER COURT INTERPRETER (CURRENT) DRUG THERAPY SP 02/01/2019 JOSEF CAMPBELL, ALI FACP CCDS Ot SP PERSONAL HISTORY OF NICOTINE DEPENDENCE SP 02/01/2019 JOSEF CHACON FACC, ALI FACP CCDS Ot Z99.89 SP DEPENDENCE ON OTHER ENABLING MACHINES AN SP 02/05/2019 MK CRONIN MD Ot K50.00 SP DISEASE OF SMALL INTESTINE WITHO SP 02/07/2019 MK CRONIN MD Ot K50.90 SP DISEASE, UNSPECIFIED, WITHOUT CO SP 02/28/2019 MK CRONIN MD Ot 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 SP 02/28/2019 MK CRONIN MD Ot J43.9 SP UNSPECIFIED SP 02/28/2019 MK CRONIN MD Ot M25.551 SP IN RIGHT HIP SP 02/28/2019 MK CRONIN MD Ot R91.8 OTHER SPNONSPECIFIC ABNORMAL FINDING OF SACHIN SP 02/28/2019 MK CRONIN MD Ot Z98.890 SP SPECIFIED POSTPROCEDURAL STATES SP 03/01/2019 MK CRONIN MD Ot K50.90 SP DISEASE, UNSPECIFIED, WITHOUT CO SP 03/19/2019 MK CRONIN MD Ot K50.10 SP DISEASE OF LARGE INTESTINE WITHO SP 03/19/2019 MK CRONIN MD Ot K50.10 SP DISEASE OF LARGE INTESTINE WITHO SP 03/22/2019 MK CRONIN MD Ot 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 SP 03/22/2019 MK CRONIN MD Ot J43.9 SP UNSPECIFIED SP 03/22/2019 MK CRONIN MD Ot M25.551 SP IN RIGHT HIP SP 03/22/2019 MK CRONIN MD Ot R91.8 OTHER SPNONSPECIFIC ABNORMAL FINDING OF [place] SP 03/22/2019 MK CRONIN MD Ot Z98.890 SP SPECIFIED POSTPROCEDURAL STATES SP 03/22/2019 MK CRONIN MD Ot K50.90 SP DISEASE, UNSPECIFIED, WITHOUT CO SP 04/03/2019 MK CRONIN MD Ot K50.90 SP DISEASE, UNSPECIFIED, WITHOUT CO SP 04/03/2019 MK CRONIN MD Ot K50.90 SP DISEASE, UNSPECIFIED, WITHOUT CO SP 04/03/2019 Ot 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 SP SMALL INTESTINE WITHO SP 04/03/2019 MK CRONIN MD Ot K50.90 SP DISEASE, UNSPECIFIED, WITHOUT CO SP 04/03/2019 JOSEF CHACON FACC, ALI FACP CCDS Ot E87.8 SP OTH DISORDERS OF ELECTROLYTE AND FLUID B SP 04/03/2019 JOSEF CHACON FACC, ALI FACP CCDS Ot G47.33 SP OBSTRUCTIVE SLEEP APNEA (ADULT) (PEDIATR SP 04/03/2019 JOSEF CHACON FACC, ALI FACP CCDS Ot I48.0 SP PAROXYSMAL ATRIAL FIBRILLATION SP 04/03/2019 JOSEF CHACON FACC, ALI FACP CCDS Ot K50.90 SP CROHN'S DISEASE, UNSPECIFIED, WITHOUT CO SP 04/03/2019 JOSEF CHACON FACC, ALI FACP CCDS Ot R06.02 SP SHORTNESS OF BREATH SP 04/03/2019 MK CRONIN MD Ot K50.90 SP DISEASE, UNSPECIFIED, WITHOUT CO SP 04/03/2019 MK CRONIN MD Ot 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 9 SP SYNDROME, UNSPECIFIED SP 04/04/2019 PRANAY TORO MD Ot E66. 9 SP UNSPECIFIED SP 04/04/2019 PRANAY TORO MD, Ot E86. 0 SP SP 04/04/2019 PRANAY TORO MD, Ot F32. 9 SP DEPRESSIVE DISORDER, SINGLE EPISOD SP 04/04/2019 PRANAY TORO MD Ot G47. 33 SP SLEEP APNEA (ADULT) (PEDIATR SP 04/04/2019 PRANAY TORO MD Ot I10 SP (PRIMARY) HYPERTENSION SP 04/04/2019 PRANAY TORO MD, Ot I48. 0 SP ATRIAL FIBRILLATION SP 04/04/2019 PRANAY TORO MD, Ot K50.919 SP CROHN'S DISEASE, UNSPECIFIED, WITH UNSPE SP 04/04/2019 PRANAY TORO MD Ot N40. 0 SP PROSTATIC HYPERPLASIA WITHOUT LOW SP 04/04/2019 PRANAY TORO MD Ot R00. 0 SP UNSPECIFIED SP 04/04/2019 PRANAY TORO MD, Ot T46.4X5A SP ADVERSE EFFECT OF [id number] SP 04/04/2019 PRANAY TORO MD Ot Z68. 34 SP MASS INDEX (BMI) 34.0-34.9, ADULT SP 04/04/2019 PRANAY TORO MD, Ot Z79.[address] INTERPRETER (CURRENT) DRUG THERAPY SP 04/04/2019 CORTEZ CHACON, PRANAY Velazquez Ot Z87.891 SP PERSONAL HISTORY OF NICOTINE DEPENDENCE SP 04/23/2019 ROSEANNE CHACON, MK Velazquez Ot K50.90 SP DISEASE, UNSPECIFIED, WITHOUT CO SP 04/24/2019 BAIMA EVON L HOTEL DINING ROOM CASHIER Ot G47.33 SP OBSTRUCTIVE SLEEP APNEA (ADULT) (PEDIATR SP 04/24/2019 BAIYOLANDA EVON L HOTEL DINING ROOM CASHIER Ot I48.0 SP PAROXYSMAL ATRIAL FIBRILLATION SP 04/24/2019 BAIYOLANDA EVON L HOTEL DINING ROOM CASHIER Ot Z79.01 SP GROUP HOME (CURRENT) USE OF ANTICOAGULANT SP 06/09/2019 EDWARDS DO, NINA L Ot F32.9 SP DEPRESSIVE DISORDER, SINGLE EPISOD SP 06/09/2019 EDWARDS DO, NINA L Ot G47.3 3 SP SLEEP APNEA (ADULT) (PEDIATR SP 06/09/2019 EDWARDS DO, NINA L Ot I10 SP (PRIMARY) HYPERTENSION SP 06/09/2019 EDWARDS DO, NINA L Ot I48.9 1 SP ATRIAL FIBRILLATION SP 06/09/2019 EDWARDS DO, NINA L Ot M25.5 11 SP IN RIGHT SHOULDER SP 06/09/2019 EDWARDS DO, NINA L Ot M79.6 01 SP IN RIGHT ARM SP 06/09/2019 EDWARDS DO, NINA L Ot N40.0 SP PROSTATIC HYPERPLASIA WITHOUT LOW SP 06/09/2019 EDWARDS DO, NINA L Ot Z85.8 28 SP HISTORY OF OTHER MALIGNANT NEOP SP 06/09/2019 EDWARDS DO, NINA L Ot Z87.1 9 SP HISTORY OF OTHER DISEASES OF TH SP 06/09/2019 EDWARDS DO, NINA L Ot Z87.4 42 SP HISTORY OF URINARY CALCULI SP 06/09/2019 EDWARDS DO, NINA L Ot Z87.8 91 SP HISTORY OF NICOTINE DEPENDENCE SP 06/09/2019 EDWARDS DO, NINA L Ot Z88.5 SP STATUS TO NARCOTIC AGENT STATUS SP 06/09/2019 EDWARDS DO, NINA L Ot Z88.8 SP STATUS TO OTH DRUG/MEDS/BIOL SUB SP 06/09/2019 EDWARDS DO, NINA L Ot Z90.4 9 SP ABSENCE OF OTHER SPECIFIED PART SP 06/09/2019 EDWARDS DO, NINA L Ot Z90.8 9 SP ABSENCE OF OTHER ORGANS SP 07/10/2019 ALIX HARTMAN MD Ot 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 SP SMALL INTESTINE WITHO SP 08/03/2019 MK CRONIN MD Ot K50.90 SP DISEASE, UNSPECIFIED, WITHOUT CO SP 08/03/2019 JOESF CHACON FACC, ALI FACP CCDS Ot E87.8 SP OTH DISORDERS OF ELECTROLYTE AND FLUID B SP 08/03/2019 JOSEF CHACON FACC, ALI FACP CCDS Ot G47.33 SP OBSTRUCTIVE SLEEP APNEA (ADULT) (PEDIATR SP 08/03/2019 JOSEF CHACON FACC, ALI FACP CCDS Ot I48.0 SP PAROXYSMAL ATRIAL FIBRILLATION SP 08/03/2019 JOSEF CHACON FACC, ALI FACP CCDS Ot K50.90 SP CROHN'S DISEASE, UNSPECIFIED, WITHOUT CO SP 08/03/2019 JOSEF CHACON FACC, ALI FACP CCDS Ot R06.02 SP SHORTNESS OF BREATH SP 08/03/2019 MK CRONIN MD Ot K50.90 SP DISEASE, UNSPECIFIED, WITHOUT CO SP 08/03/2019 MK CRONIN MD Ot 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 SP 08/03/2019 MK CRONIN MD Ot J43.9 SP UNSPECIFIED SP 08/03/2019 MK CRONIN MD Ot M25.551 SP IN RIGHT HIP SP 08/03/2019 MK CRONIN MD Ot R91.8 OTHER SPNONSPECIFIC ABNORMAL FINDING OF [place] SP 08/03/2019 MK CRONIN MD Ot Z98.890 SP SPECIFIED POSTPROCEDURAL STATES SP 08/03/2019 MK CRONIN MD Ot K50.00 SP DISEASE OF SMALL INTESTINE WITHO SP 08/03/2019 EVON JACKMANP Ot G47.33 SP OBSTRUCTIVE SLEEP APNEA (ADULT) (PEDIATR SP 08/03/2019 EVON JACKMANP Ot I48.0 SP PAROXYSMAL ATRIAL FIBRILLATION SP 08/03/2019 EVON JACKMANP Ot Z79.[address] INTERPRETER (CURRENT) USE OF ANTICOAGULANT SP 08/03/2019 ALIX HARTMAN MD Ot 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 30 SP CERVICAL DISC DEGENERATION, UNSP C SP Procedures Code Description Performed By Per formed On POS [id number] RE STORATION OF CARDIAC SP SINGLE 11/17/2018 SP Results Test Result Range POS Complete blood count (CBC) with automate d white blood cell (WBC) differential - POS 19:42 Blood leukocytes automated count (number/volume) 10.6 10*3/uL POS 4.3-11.0 SP Blood erythrocytes automated count (number/volume) 4.91 10*6/uL SP 4.35-5.85 SP Venous blood hemoglobin measurement (mass/volume) 16.0 g/dL SP17.7 Blood hematocrit (volume fraction) 48 % 40-54 SP Automated erythrocyte mean corpuscular volume 98 [ foz_us] SP99 Automated erythrocyte mean corpuscular h emoglobin (mass per erythrocyte) SP 33 pg 25-34 SP Automated erythrocyte mean corpuscular h emoglobin concentration measurement SP 33 g/dL 32-36 SP Automated erythrocyte distribution width ratio 13. 5 % 10.0- SP Automated blood platelet count (count/volume) 167 10*3/uL SP400 Automated blood platelet mean volume measurement 11.0 [foz_us] SP 7.4-10.4 SP Automated blood neutrophils/100 leukocytes 76 % 42-75 SP Automated blood lymphocytes/100 leukocytes 15 % 12-44 SP Blood monocytes/100 leukocytes 7 % 0-12 SP Automated blood eosinophils/100 leukocytes 2 % 0-10 SP Automated blood basophils/100 leukocytes 0 % 0-10 SP Blood neutrophils automated count (number/volume) 8.0 10*3 SP7.8 Blood lymphocytes automated count (number/volume) 1.6 10*3 SP4.0 Blood monocytes automated count (number/volume) 0. 8 10*3 SP1.0 Automated eosinophil count 0.2 10*3/uL 0 .0-0.3 SP Automated blood basophil count (count/volume) 0.0 10*3/uL SP0.1 PT panel in platelet poor plasma by coag ulation assay - 11/14/18 19:42 POS Prothrombin time (PT) in platelet poor plasma by coagu lation assay SP s 12.2-14.7 SP INR in platelet poor plasma or blood by coagulation as say 0.9 SP 0.8-1.4 SP Activated partial thromboplastin time (a PTT) in platelet poor plasma POS assay - 11/14/18 19:42 Activated partial thromboplastin time (a PTT) in platelet poor plasma POS assay 27 s 24-35 SP Comprehensive metabolic panel - 11/14/18 19:42 POS Serum or plasma sodium measurement (moles/volume) 139 mmol/L SP 135-145 SP Serum or plasma potassium measurement (moles/volume) 3.9 mmol/L SP 3.6-5.0 SP Serum or plasma chloride measurement (moles/volume) 105 mmol/L SP 98-107 SP Carbon dioxide 19 mmol/L 21-32 SP Serum or plasma anion gap determination (moles/volume) 15 mmol/L SP 5-14 SP Serum or plasma urea nitrogen measurement (mass/volume ) 10 mg/dL SP 7-18 SP Serum or plasma creatinine measurement (mass/volume) 1.13 mg/dL SP 0.60-1.30 SP Serum or plasma urea nitrogen/creatinine mass ratio 9 NRG SP Serum or plasma creatinine measurement w ith calculation of estimated glomerular SP rate > NRG SP Serum or plasma glucose measurement (mass/volume) 158 mg/dL SP105 Serum or plasma calcium measurement (mass/volume) 9.9 mg/dL SP10.1 Serum or plasma total bilirubin measurement (mass/volu me) 0.7 mg/dL SP 0.1-1.0 SP Serum or plasma alkaline phosphatase paula surement (enzymatic activity/volume) SP 59 U/L 40-136 SP Serum or plasma aspartate aminotransfera se measurement (enzymatic SP 35 U/L 5-34 SP Serum or plasma alanine aminotransferase measurement (enzymatic activity/volume) SP 33 U/L 0-55 SP Serum or plasma protein measurement (mass/volume) 7.6 g/dL SP8.2 Serum or plasma albumin measurement (mass/volume) 4.2 g/dL SP4.5 CALCIUM CORRECTED 9.7 mg/dL 8.5-10.1 SP Magnesium - 11/14/18 19:42 POS Magnesium 1.9 mg/dL 1.8-2.4 SP Serum or plasma troponin i.cardiac measu rement (mass/volume) - 11/14/18 19:42 POS Serum or plasma troponin i.cardiac measurement (mass/v olume) < ng/mL POS <0.028 SP Myoglobin, serum - 11/14/18 19:42 POS Myoglobin, serum 83.2 ng/mL 10.0-92.0 SP Fibrin D-dimer FEU measurement in platel et poor plasma (mass/volume) - 11/14/18 POS Fibrin D-dimer FEU measurement in platelet poor plasma (mass/volume) POS ug/mL 0.00-0.49 SP Serum or plasma amylase measurement (enz ymatic activity/volume) - 11/14/18 19:42 POS Serum or plasma amylase measurement (enzymatic activit y/volume) 107 POS 25-125 SP Lipase - 11/14/18 19:42 POS Lipase 40 U/L 8-78 SP Serum or plasma lithium measurement (mol es/volume) - 11/14/18 19:42 POS BNP level 19.2 pg/mL <100.0 SP Serum or plasma troponin i.cardiac measu rement (mass/volume) - 11/14/18 21:48 POS Serum or plasma troponin i.cardiac measurement (mass/v olume) < ng/mL POS <0.028 SP Complete blood count (CBC) with automate d white blood cell (WBC) differential - POS 12:55 Blood leukocytes automated count (number/volume) 26.0 10*3/uL POS 4.3-11.0 SP Blood erythrocytes automated count (number/volume) 4.50 10*6/uL SP 4.35-5.85 SP Venous blood hemoglobin measurement (mass/volume) 14.3 g/dL SP17.7 Blood hematocrit (volume fraction) 43 % 40-54 SP Automated erythrocyte mean corpuscular volume 96 [ foz_us] SP99 Automated erythrocyte mean corpuscular h emoglobin (mass per erythrocyte) SP 32 pg 25-34 SP Automated erythrocyte mean corpuscular h emoglobin concentration measurement SP 33 g/dL 32-36 SP Automated erythrocyte distribution width ratio 13. 6 % 10.0- SP Automated blood platelet count (count/volume) 130 10*3/uL SP400 Automated blood platelet mean volume measurement 11.1 [foz_us] SP 7.4-10.4 SP Automated blood neutrophils/100 leukocytes 92 % 42-75 SP Automated blood lymphocytes/100 leukocytes 2 % 12-44 SP Blood monocytes/100 leukocytes 6 % 0-12 SP Automated blood eosinophils/100 leukocytes 0 % 0-10 SP Automated blood basophils/100 leukocytes 0 % 0-10 SP Blood neutrophils automated count (number/volume) 23.9 10*3 SP7.8 Blood lymphocytes automated count (number/volume) 0.6 10*3 SP4.0 Blood monocytes automated count (number/volume) 1. 4 10*3 SP1.0 Automated eosinophil count 0.1 10*3/uL 0 .0-0.3 SP Automated blood basophil count (count/volume) 0.1 10*3/uL SP0.1 Blood lactic acid measurement (moles/vol ume) - 11/16/18 12:55 POS Blood lactic acid measurement (moles/volume) 1.92 mmol/L SP2.00 PT panel in platelet poor plasma by coag ulation assay - 11/16/18 12:55 POS Prothrombin time (PT) in platelet poor plasma by coagu lation assay SP s 12.2-14.7 SP INR in platelet poor plasma or blood by coagulation as say 1.1 SP 0.8-1.4 SP Activated partial thromboplastin time (a PTT) in platelet poor plasma POS assay - 11/16/18 12:55 Activated partial thromboplastin time (a PTT) in platelet poor plasma POS assay 32 s 24-35 SP Comprehensive metabolic panel - 11/16/18 12:55 POS Serum or plasma sodium measurement (moles/volume) 130 mmol/L SP 135-145 SP Serum or plasma potassium measurement (moles/volume) 3.5 mmol/L SP 3.6-5.0 SP Serum or plasma chloride measurement (moles/volume) 100 mmol/L SP 98-107 SP Carbon dioxide 17 mmol/L 21-32 SP Serum or plasma anion gap determination (moles/volume) 13 mmol/L SP 5-14 SP Serum or plasma urea nitrogen measurement (mass/volume ) 24 mg/dL SP 7-18 SP Serum or plasma creatinine measurement (mass/volume) 3.12 mg/dL SP 0.60-1.30 SP Serum or plasma urea nitrogen/creatinine mass ratio 8 NRG SP Serum or plasma creatinine measurement w ith calculation of estimated glomerular SP rate 20 NRG SP Serum or plasma glucose measurement (mass/volume) 116 mg/dL SP105 Serum or plasma calcium measurement (mass/volume) 8.5 mg/dL SP10.1 Serum or plasma total bilirubin measurement (mass/volu me) 1.1 mg/dL SP 0.1-1.0 SP Serum or plasma alkaline phosphatase paula surement (enzymatic activity/volume) SP 38 U/L 40-136 SP Serum or plasma aspartate aminotransfera se measurement (enzymatic SP 43 U/L 5-34 SP Serum or plasma alanine aminotransferase measurement (enzymatic activity/volume) SP 32 U/L 0-55 SP Serum or plasma protein measurement (mass/volume) 6.9 g/dL SP8.2 Serum or plasma albumin measurement (mass/volume) 3.7 g/dL SP4.5 CALCIUM CORRECTED 8.7 mg/dL 8.5-10.1 SP Serum or plasma troponin i.cardiac measu rement (mass/volume) - 11/16/18 12:55 POS Serum or plasma troponin i.cardiac measurement (mass/v olume) < ng/mL POS <0.028 SP Blood manual differential performed dete ction - 11/16/18 12:55 POS Blood monocytes/100 leukocytes 4 % NRG SP Manual blood segmented neutrophils/100 leukocytes 72 % NRG SP Blood band neutrophils/100 leukocytes 21 % NRG SP Manual blood lymphocytes/100 leukocytes 2 % NRG SP Manual eosinophils/100 leukocytes in nose 0 % NRG SP Manual blood basophils/100 leukocytes 0 % NRG SP Blood lymphocytes variant/100 leukocytes 1 % NRG SP Blood erythrocyte morphology finding identification NORMAL SP Blood toxic granules detection by light microscopy 3+ NRG SP Serum or plasma creatine kinase measurem ent (enzymatic activity/volume) - POS 12:55 Serum or plasma creatine kinase measurem ent (enzymatic activity/volume) POS 201 U/L 30-200 SP Bacterial blood culture - 11/16/18 12:55 POS QUANTITY OF GROWTH Isolated NRG SP Bacterial blood culture [id number] NRG SP Complete urinalysis with reflex to cultu re - 11/16/18 13:20 POS Urine color determination YELLOW NRG SP Urine clarity determination SLIGHTLY CLOUDY NRG SP Urine pH measurement by test strip 5 5-9 SP Specific gravity of urine by test strip 1.030 1.016-1.022 SP Urine protein assay by test strip, semi-quantitative 3+ SP Urine glucose detection by automated test strip 1+ NEGATIVE SP Erythrocytes detection in urine sediment by light micr oscopy 4+ SP NEGATIVE SP Urine ketones detection by automated test strip 1+ NEGATIVE SP Urine nitrite detection by test strip POSITIVE NEGATIVE SP Urine total bilirubin detection by test strip 1+ NEGATIVE SP Urine urobilinogen measurement by automated test strip (mass/volume) 1 SPmg/dL NORMAL SP Urine leukocyte esterase detection by dipstick 1+ NEGATIVE SP Automated urine sediment erythrocyte cou nt by microscopy (number/high power SP RARE NRG SP Automated urine sediment leukocyte count by microscopy (number/high power field) SP [HPF] NRG SP Bacteria detection in urine sediment by light microsco py MODERATE SP NRG SP Squamous epithelial cells detection in u rine sediment by light microscopy SP RARE NRG SP Crystals detection in urine sediment by light microsco py PRESENT SP NRG SP Casts detection in urine sediment by light microscopy PRESENT SP NRG SP Mucus detection in urine sediment by light microscopy NEGATIVE SP NRG SP Complete urinalysis with reflex to culture NO NRG SP Amorphous sediment detection in urine sediment by ligh t microscopy MOD SPAMOR URATES NRG SP Hyaline casts detection in urine sediment by light jeff roscopy 10-25 SP NRG SP Renal epithelial cells detection in urin e sediment by light microscopy SP NONE NRG SP Bacterial urine culture - 11/16/18 13:20 POS Bacterial urine culture NG NRG SP Bacterial blood culture - 11/16/18 13:30 POS Bacterial blood culture NG NRG SP Methicillin resistant Staphylococcus aur eus (MRSA) screening culture - 11/16/18 POS Methicillin resistant Staphylococcus aureus (MRSA) scr eening culture POS NRG SP Complete blood count (CBC) with automate d white blood cell (WBC) differential - POS 03:40 Blood leukocytes automated count (number/volume) 16.2 10*3/uL POS 4.3-11.0 SP Blood erythrocytes automated count (number/volume) 3.75 10*6/uL SP 4.35-5.85 SP Venous blood hemoglobin measurement (mass/volume) 12.2 g/dL SP17.7 Blood hematocrit (volume fraction) 37 % 40-54 SP Automated erythrocyte mean corpuscular volume 98 [ foz_us] SP99 Automated erythrocyte mean corpuscular h emoglobin (mass per erythrocyte) SP 33 pg 25-34 SP Automated erythrocyte mean corpuscular h emoglobin concentration measurement SP 33 g/dL 32-36 SP Automated erythrocyte distribution width ratio 13. 7 % 10.0- SP Automated blood platelet count (count/volume) 90 1 0*3/uL SP400 Automated blood platelet mean volume measurement 11.1 [foz_us] SP 7.4-10.4 SP Automated blood neutrophils/100 leukocytes 93 % 42-75 SP Automated blood lymphocytes/100 leukocytes 4 % 12-44 SP Blood monocytes/100 leukocytes 3 % 0-12 SP Automated blood eosinophils/100 leukocytes 0 % 0-10 SP Automated blood basophils/100 leukocytes 0 % 0-10 SP Blood neutrophils automated count (number/volume) 15.0 10*3 SP7.8 Blood lymphocytes automated count (number/volume) 0.6 10*3 SP4.0 Blood monocytes automated count (number/volume) 0. 6 10*3 SP1.0 Automated eosinophil count 0.0 10*3/uL 0 .0-0.3 SP Automated blood basophil count (count/volume) 0.0 10*3/uL SP0.1 Comprehensive metabolic panel - 11/17/18 03:40 POS Serum or plasma sodium measurement (moles/volume) 137 mmol/L SP 135-145 SP Serum or plasma potassium measurement (moles/volume) 2.9 mmol/L SP 3.6-5.0 SP Serum or plasma chloride measurement (moles/volume) 113 mmol/L SP 98-107 SP Carbon dioxide 14 mmol/L 21-32 SP Serum or plasma anion gap determination (moles/volume) 10 mmol/L SP 5-14 SP Serum or plasma urea nitrogen measurement (mass/volume ) 21 mg/dL SP 7-18 SP Serum or plasma creatinine measurement (mass/volume) 1.43 mg/dL SP 0.60-1.30 SP Serum or plasma urea nitrogen/creatinine mass ratio 15 NRG SP Serum or plasma creatinine measurement w ith calculation of estimated glomerular SP rate 50 NRG SP Serum or plasma glucose measurement (mass/volume) 117 mg/dL SP105 Serum or plasma calcium measurement (mass/volume) 7.4 mg/dL SP10.1 Serum or plasma total bilirubin measurement (mass/volu me) 0.7 mg/dL SP 0.1-1.0 SP Serum or plasma alkaline phosphatase paula surement (enzymatic activity/volume) SP 34 U/L 40-136 SP Serum or plasma aspartate aminotransfera se measurement (enzymatic SP 32 U/L 5-34 SP Serum or plasma alanine aminotransferase measurement (enzymatic activity/volume) SP 25 U/L 0-55 SP Serum or plasma protein measurement (mass/volume) 5.5 g/dL SP8.2 Serum or plasma albumin measurement (mass/volume) 2.9 g/dL SP4.5 CALCIUM CORRECTED 8.3 mg/dL 8.5-10.1 SP Serum or plasma phosphate measurement (m ass/volume) - 11/17/18 03:40 POS Serum or plasma phosphate measurement (mass/volume) 2.5 mg/dL SP 2.3-4.7 SP Magnesium - 11/17/18 03:40 POS Magnesium 1.4 mg/dL 1.8-2.4 SP Serum or plasma lithium measurement (mol es/volume) - 11/17/18 03:40 POS BNP level 104.7 pg/mL <100.0 SP Blood lactic acid measurement (moles/vol ume) - 11/17/18 05:48 POS Blood lactic acid measurement (moles/volume) 0.76 mmol/L SP2.00 C DIFFICILE AG + TOXIN A/B. - 11/17/18 1 2:10 POS RESULTS NEGATIVE FOR ANTIGEN AND TOXIN A/B NRG SP Serum or plasma troponin i.cardiac measu rement (mass/volume) - 11/17/18 12:45 POS Serum or plasma troponin i.cardiac measurement (mass/v olume) < ng/mL POS <0.028 SP Serum or plasma troponin i.cardiac measu rement (mass/volume) - 11/17/18 17:49 POS Serum or plasma troponin i.cardiac measurement (mass/v olume) < ng/mL POS <0.028 SP Serum or plasma troponin i.cardiac measu rement (mass/volume) - 11/17/18 23:59 POS Serum or plasma troponin i.cardiac measurement (mass/v olume) < ng/mL POS <0.028 SP Complete blood count (CBC) with automate d white blood cell (WBC) differential - POS 03:15 Blood leukocytes automated count (number/volume) 9.0 10*3/uL POS 4.3-11.0 SP Blood erythrocytes automated count (number/volume) 3.37 10*6/uL SP 4.35-5.85 SP Venous blood hemoglobin measurement (mass/volume) 10.9 g/dL SP17.7 Blood hematocrit (volume fraction) 33 % 40-54 SP Automated erythrocyte mean corpuscular volume 98 [ foz_us] SP99 Automated erythrocyte mean corpuscular h emoglobin (mass per erythrocyte) SP 32 pg 25-34 SP Automated erythrocyte mean corpuscular h emoglobin concentration measurement SP 33 g/dL 32-36 SP Automated erythrocyte distribution width ratio 13. 9 % 10.0- SP Automated blood platelet count (count/volume) 81 1 0*3/uL SP400 Automated blood platelet mean volume measurement 11.1 [foz_us] SP 7.4-10.4 SP Automated blood neutrophils/100 leukocytes 90 % 42-75 SP Automated blood lymphocytes/100 leukocytes 6 % 12-44 SP Blood monocytes/100 leukocytes 5 % 0-12 SP Automated blood eosinophils/100 leukocytes 0 % 0-10 SP Automated blood basophils/100 leukocytes 0 % 0-10 SP Blood neutrophils automated count (number/volume) 8.1 10*3 SP7.8 Blood lymphocytes automated count (number/volume) 0.5 10*3 SP4.0 Blood monocytes automated count (number/volume) 0. 4 10*3 SP1.0 Automated eosinophil count 0.0 10*3/uL 0 .0-0.3 SP Automated blood basophil count (count/volume) 0.0 10*3/uL SP0.1 Whole blood basic metabolic panel - 11/03 03/21 03:15 POS Serum or plasma sodium measurement (moles/volume) 139 mmol/L SP 135-145 SP Serum or plasma potassium measurement (moles/volume) 3.0 mmol/L SP 3.6-5.0 SP Serum or plasma chloride measurement (moles/volume) 114 mmol/L SP 98-107 SP Carbon dioxide 17 mmol/L 21-32 SP Serum or plasma anion gap determination (moles/volume) 8 mmol/L SP 5-14 SP Serum or plasma urea nitrogen measurement (mass/volume ) 12 mg/dL SP 7-18 SP Serum or plasma creatinine measurement (mass/volume) 0.88 mg/dL SP 0.60-1.30 SP Serum or plasma urea nitrogen/creatinine mass ratio 14 NRG SP Serum or plasma creatinine measurement w ith calculation of estimated glomerular SP rate > NRG SP Serum or plasma glucose measurement (mass/volume) 127 mg/dL SP105 Serum or plasma calcium measurement (mass/volume) 7.5 mg/dL SP10.1 Serum or plasma phosphate measurement (m ass/volume) - 11/18/18 03:15 POS Serum or plasma phosphate measurement (mass/volume) 2.1 mg/dL SP 2.3-4.7 SP Magnesium - 11/18/18 03:15 POS Magnesium 1.8 mg/dL 1.8-2.4 SP Vancomycin trough - 11/18/18 07:00 POS Vancomycin trough 13.7 ug/mL 10.0-20.0 SP Whole blood basic metabolic panel - 11/03 03/21 11:15 POS Serum or plasma sodium measurement (moles/volume) 139 mmol/L SP 135-145 SP Serum or plasma potassium measurement (moles/volume) 3.1 mmol/L SP 3.6-5.0 SP Serum or plasma chloride measurement (moles/volume) 114 mmol/L SP 98-107 SP Carbon dioxide 19 mmol/L 21-32 SP Serum or plasma anion gap determination (moles/volume) 6 mmol/L SP 5-14 SP Serum or plasma urea nitrogen measurement (mass/volume ) 11 mg/dL SP 7-18 SP Serum or plasma creatinine measurement (mass/volume) 0.79 mg/dL SP 0.60-1.30 SP Serum or plasma urea nitrogen/creatinine mass ratio 14 NRG SP Serum or plasma creatinine measurement w ith calculation of estimated glomerular SP rate > NRG SP Serum or plasma glucose measurement (mass/volume) 102 mg/dL SP105 Serum or plasma calcium measurement (mass/volume) 7.5 mg/dL SP10.1 Complete blood count (CBC) with automate d white blood cell (WBC) differential - POS 03:40 Blood leukocytes automated count (number/volume) 5.7 10*3/uL POS 4.3-11.0 SP Blood erythrocytes automated count (number/volume) 3.20 10*6/uL SP 4.35-5.85 SP Venous blood hemoglobin measurement (mass/volume) 10.4 g/dL SP17.7 Blood hematocrit (volume fraction) 31 % 40-54 SP Automated erythrocyte mean corpuscular volume 98 [ foz_us] SP99 Automated erythrocyte mean corpuscular h emoglobin (mass per erythrocyte) SP 33 pg 25-34 SP Automated erythrocyte mean corpuscular h emoglobin concentration measurement SP 33 g/dL 32-36 SP Automated erythrocyte distribution width ratio 14. 0 % 10.0- SP Automated blood platelet count (count/volume) 73 1 0*3/uL SP400 Automated blood platelet mean volume measurement 11.0 [foz_us] SP 7.4-10.4 SP Automated blood neutrophils/100 leukocytes 76 % 42-75 SP Automated blood lymphocytes/100 leukocytes 16 % 12-44 SP Blood monocytes/100 leukocytes 7 % 0-12 SP Automated blood eosinophils/100 leukocytes 2 % 0-10 SP Automated blood basophils/100 leukocytes 0 % 0-10 SP Blood neutrophils automated count (number/volume) 4.3 10*3 SP7.8 Blood lymphocytes automated count (number/volume) 0.9 10*3 SP4.0 Blood monocytes automated count (number/volume) 0. 4 10*3 SP1.0 Automated eosinophil count 0.1 10*3/uL 0 .0-0.3 SP Automated blood basophil count (count/volume) 0.0 10*3/uL SP0.1 Whole blood basic metabolic panel - 11/03 04/20 03:40 POS Serum or plasma sodium measurement (moles/volume) 142 mmol/L SP 135-145 SP Serum or plasma potassium measurement (moles/volume) 3.2 mmol/L SP 3.6-5.0 SP Serum or plasma chloride measurement (moles/volume) 114 mmol/L SP 98-107 SP Carbon dioxide 21 mmol/L 21-32 SP Serum or plasma anion gap determination (moles/volume) 7 mmol/L SP 5-14 SP Serum or plasma urea nitrogen measurement (mass/volume ) 12 mg/dL SP 7-18 SP Serum or plasma creatinine measurement (mass/volume) 0.76 mg/dL SP 0.60-1.30 SP Serum or plasma urea nitrogen/creatinine mass ratio 16 NRG SP Serum or plasma creatinine measurement w ith calculation of estimated glomerular SP rate > NRG SP Serum or plasma glucose measurement (mass/volume) 98 mg/dL SP105 Serum or plasma calcium measurement (mass/volume) 7.5 mg/dL SP10.1 Serum or plasma phosphate measurement (m ass/volume) - 11/19/18 03:40 POS Serum or plasma phosphate measurement (mass/volume) 1.5 mg/dL SP 2.3-4.7 SP Magnesium - 11/19/18 03:40 POS Magnesium 1.4 mg/dL 1.8-2.4 SP Complete blood count (CBC) with automate d white blood cell (WBC) differential - POS 02:50 Blood leukocytes automated count (number/volume) 4.3 10*3/uL POS 4.3-11.0 SP Blood erythrocytes automated count (number/volume) 3.57 10*6/uL SP 4.35-5.85 SP Venous blood hemoglobin measurement (mass/volume) 11.5 g/dL SP17.7 Blood hematocrit (volume fraction) 35 % 40-54 SP Automated erythrocyte mean corpuscular volume 97 [ foz_us] SP99 Automated erythrocyte mean corpuscular h emoglobin (mass per erythrocyte) SP 32 pg 25-34 SP Automated erythrocyte mean corpuscular h emoglobin concentration measurement SP 33 g/dL 32-36 SP Automated erythrocyte distribution width ratio 13. 9 % 10.0- SP Automated blood platelet count (count/volume) 82 1 0*3/uL SP400 Automated blood platelet mean volume measurement 10.7 [foz_us] SP 7.4-10.4 SP Automated blood neutrophils/100 leukocytes 65 % 42-75 SP Automated blood lymphocytes/100 leukocytes 22 % 12-44 SP Blood monocytes/100 leukocytes 10 % 0-12 SP Automated blood eosinophils/100 leukocytes 3 % 0-10 SP Automated blood basophils/100 leukocytes 1 % 0-10 SP Blood neutrophils automated count (number/volume) 2.8 10*3 SP7.8 Blood lymphocytes automated count (number/volume) 0.9 10*3 SP4.0 Blood monocytes automated count (number/volume) 0. 4 10*3 SP1.0 Automated eosinophil count 0.1 10*3/uL 0 .0-0.3 SP Automated blood basophil count (count/volume) 0.0 10*3/uL SP0.1 Whole blood basic metabolic panel - 11/03 05/21 02:50 POS Serum or plasma sodium measurement (moles/volume) 140 mmol/L SP 135-145 SP Serum or plasma potassium measurement (moles/volume) 3.3 mmol/L SP 3.6-5.0 SP Serum or plasma chloride measurement (moles/volume) 112 mmol/L SP 98-107 SP Carbon dioxide 23 mmol/L 21-32 SP Serum or plasma anion gap determination (moles/volume) 5 mmol/L SP 5-14 SP Serum or plasma urea nitrogen measurement (mass/volume ) 6 mg/dL SP 7-18 SP Serum or plasma creatinine measurement (mass/volume) 0.75 mg/dL SP 0.60-1.30 SP Serum or plasma urea nitrogen/creatinine mass ratio 8 NRG SP Serum or plasma creatinine measurement w ith calculation of estimated glomerular SP rate > NRG SP Serum or plasma glucose measurement (mass/volume) 86 mg/dL SP105 Serum or plasma calcium measurement (mass/volume) 7.6 mg/dL SP10.1 Serum or plasma phosphate measurement (m ass/volume) - 11/20/18 02:50 POS Serum or plasma phosphate measurement (mass/volume) 1.6 mg/dL SP 2.3-4.7 SP Magnesium - 11/20/18 02:50 POS Magnesium 1.8 mg/dL 1.8-2.4 SP Complete blood count (CBC) with automate d white blood cell (WBC) differential - POS 05:24 Blood leukocytes automated count (number/volume) 4.0 10*3/uL POS 4.3-11.0 SP Blood erythrocytes automated count (number/volume) 3.62 10*6/uL SP 4.35-5.85 SP Venous blood hemoglobin measurement (mass/volume) 11.9 g/dL SP17.7 Blood hematocrit (volume fraction) 35 % 40-54 SP Automated erythrocyte mean corpuscular volume 98 [ foz_us] SP99 Automated erythrocyte mean corpuscular h emoglobin (mass per erythrocyte) SP 33 pg 25-34 SP Automated erythrocyte mean corpuscular h emoglobin concentration measurement SP 34 g/dL 32-36 SP Automated erythrocyte distribution width ratio 13. 7 % 10.0- SP Automated blood platelet count (count/volume) 99 1 0*3/uL SP400 Automated blood platelet mean volume measurement 10.5 [foz_us] SP 7.4-10.4 SP Automated blood neutrophils/100 leukocytes 43 % 42-75 SP Automated blood lymphocytes/100 leukocytes 36 % 12-44 SP Blood monocytes/100 leukocytes 16 % 0-12 SP Automated blood eosinophils/100 leukocytes 4 % 0-10 SP Automated blood basophils/100 leukocytes 1 % 0-10 SP Blood neutrophils automated count (number/volume) 1.7 10*3 SP7.8 Blood lymphocytes automated count (number/volume) 1.5 10*3 SP4.0 Blood monocytes automated count (number/volume) 0. 7 10*3 SP1.0 Automated eosinophil count 0.2 10*3/uL 0 .0-0.3 SP Automated blood basophil count (count/volume) 0.0 10*3/uL SP0.1 Whole blood basic metabolic panel - 11/03 06/21 05:24 POS Serum or plasma sodium measurement (moles/volume) 143 mmol/L SP 135-145 SP Serum or plasma potassium measurement (moles/volume) 4.0 mmol/L SP 3.6-5.0 SP Serum or plasma chloride measurement (moles/volume) 111 mmol/L SP 98-107 SP Carbon dioxide 25 mmol/L 21-32 SP Serum or plasma anion gap determination (moles/volume) 7 mmol/L SP 5-14 SP Serum or plasma urea nitrogen measurement (mass/volume ) 7 mg/dL SP 7-18 SP Serum or plasma creatinine measurement (mass/volume) 0.79 mg/dL SP 0.60-1.30 SP Serum or plasma urea nitrogen/creatinine mass ratio 9 NRG SP Serum or plasma creatinine measurement w ith calculation of estimated glomerular SP rate > NRG SP Serum or plasma glucose measurement (mass/volume) 104 mg/dL SP105 Serum or plasma calcium measurement (mass/volume) 8.3 mg/dL SP10.1 Serum or plasma phosphate measurement (m ass/volume) - 11/21/18 05:24 POS Serum or plasma phosphate measurement (mass/volume) 2.2 mg/dL SP 2.3-4.7 SP Magnesium - 11/21/18 05:24 POS Magnesium 1.4 mg/dL 1.8-2.4 SP Complete blood count (CBC) with automate d white blood cell (WBC) differential - POS 04:15 Blood leukocytes automated count (number/volume) 5.8 10*3/uL POS 4.3-11.0 SP Blood erythrocytes automated count (number/volume) 3.83 10*6/uL SP 4.35-5.85 SP Venous blood hemoglobin measurement (mass/volume) 12.3 g/dL SP17.7 Blood hematocrit (volume fraction) 38 % 40-54 SP Automated erythrocyte mean corpuscular volume 98 [ foz_us] SP99 Automated erythrocyte mean corpuscular h emoglobin (mass per erythrocyte) SP 32 pg 25-34 SP Automated erythrocyte mean corpuscular h emoglobin concentration measurement SP 33 g/dL 32-36 SP Automated erythrocyte distribution width ratio 13. 9 % 10.0- SP Automated blood platelet count (count/volume) 131 10*3/uL SP400 Automated blood platelet mean volume measurement 10.8 [foz_us] SP 7.4-10.4 SP Automated blood neutrophils/100 leukocytes 47 % 42-75 SP Automated blood lymphocytes/100 leukocytes 37 % 12-44 SP Blood monocytes/100 leukocytes 12 % 0-12 SP Automated blood eosinophils/100 leukocytes 4 % 0-10 SP Automated blood basophils/100 leukocytes 1 % 0-10 SP Blood neutrophils automated count (number/volume) 2.7 10*3 SP7.8 Blood lymphocytes automated count (number/volume) 2.1 10*3 SP4.0 Blood monocytes automated count (number/volume) 0. 7 10*3 SP1.0 Automated eosinophil count 0.2 10*3/uL 0 .0-0.3 SP Automated blood basophil count (count/volume) 0.1 10*3/uL SP0.1 Whole blood basic metabolic panel - 11/04 04:15 POS Serum or plasma sodium measurement (moles/volume) 141 mmol/L SP 135-145 SP Serum or plasma potassium measurement (moles/volume) 4.3 mmol/L SP 3.6-5.0 SP Serum or plasma chloride measurement (moles/volume) 109 mmol/L SP 98-107 SP Carbon dioxide 26 mmol/L 21-32 SP Serum or plasma anion gap determination (moles/volume) 6 mmol/L SP 5-14 SP Serum or plasma urea nitrogen measurement (mass/volume ) 9 mg/dL SP 7-18 SP Serum or plasma creatinine measurement (mass/volume) 0.80 mg/dL SP 0.60-1.30 SP Serum or plasma urea nitrogen/creatinine mass ratio 11 NRG SP Serum or plasma creatinine measurement w ith calculation of estimated glomerular SP rate > NRG SP Serum or plasma glucose measurement (mass/volume) 85 mg/dL SP105 Serum or plasma calcium measurement (mass/volume) 8.4 mg/dL SP10.1 Serum or plasma phosphate measurement (m ass/volume) - 11/22/18 04:15 POS Serum or plasma phosphate measurement (mass/volume) 2.7 mg/dL SP 2.3-4.7 SP Magnesium - 11/22/18 04:15 POS Magnesium 1.6 mg/dL 1.8-2.4 SP TROPONIN T - 12/05/18 09:13 POS TROPONIN T 7 % <=15 SP Comprehensive metabolic panel - 12/05/18 09:13 POS Serum or plasma sodium measurement (moles/volume) 134 mmol/L SP 135-145 SP Serum or plasma potassium measurement (moles/volume) 3.9 mmol/L SP 3.6-5.0 SP Serum or plasma chloride measurement (moles/volume) 95 mmol/L SP 98-107 SP Carbon dioxide 19 mmol/L 21-32 SP Serum or plasma anion gap determination (moles/volume) 20 mmol/L SP 5-14 SP Serum or plasma urea nitrogen measurement (mass/volume ) 10 mg/dL SP 7-18 SP Serum or plasma creatinine measurement (mass/volume) 0.96 mg/dL SP 0.60-1.30 SP Serum or plasma urea nitrogen/creatinine mass ratio 10 NRG SP Serum or plasma creatinine measurement w ith calculation of estimated glomerular SP rate > NRG SP Serum or plasma glucose measurement (mass/volume) 162 mg/dL SP105 Serum or plasma calcium measurement (mass/volume) 9.0 mg/dL SP10.1 Serum or plasma total bilirubin measurement (mass/volu me) 0.5 mg/dL SP 0.1-1.0 SP Serum or plasma alkaline phosphatase paula surement (enzymatic activity/volume) SP 81 U/L 40-136 SP Serum or plasma aspartate aminotransfera se measurement (enzymatic SP 30 U/L 5-34 SP Serum or plasma alanine aminotransferase measurement (enzymatic activity/volume) SP 22 U/L 0-55 SP Serum or plasma protein measurement (mass/volume) 7.3 g/dL SP8.2 Serum or plasma albumin measurement (mass/volume) 4.0 g/dL SP4.5 CALCIUM CORRECTED 9.0 mg/dL 8.5-10.1 SP Complete blood count (CBC) with automate d white blood cell (WBC) differential - POS 09:13 Blood leukocytes automated count (number/volume) 6.6 10*3/uL POS 4.3-11.0 SP Blood erythrocytes automated count (number/volume) 4.35 10*6/uL SP 4.35-5.85 SP Venous blood hemoglobin measurement (mass/volume) 14.2 g/dL SP17.7 Blood hematocrit (volume fraction) 43 % 40-54 SP Automated erythrocyte mean corpuscular volume 100 [foz_us] SP99 Automated erythrocyte mean corpuscular h emoglobin (mass per erythrocyte) SP 33 pg 25-34 SP Automated erythrocyte mean corpuscular h emoglobin concentration measurement SP 33 g/dL 32-36 SP Automated erythrocyte distribution width ratio 14. 6 % 10.0- SP Automated blood platelet count (count/volume) 179 10*3/uL SP400 Automated blood platelet mean volume measurement 10.8 [foz_us] SP 7.4-10.4 SP Automated blood neutrophils/100 leukocytes 54 % 42-75 SP Automated blood lymphocytes/100 leukocytes 24 % 12-44 SP Blood monocytes/100 leukocytes 18 % 0-12 SP Automated blood eosinophils/100 leukocytes 3 % 0-10 SP Automated blood basophils/100 leukocytes 1 % 0-10 SP Blood neutrophils automated count (number/volume) 3.6 10*3 SP7.8 Blood lymphocytes automated count (number/volume) 1.6 10*3 SP4.0 Blood monocytes automated count (number/volume) 1. 2 10*3 SP1.0 Automated eosinophil count 0.2 10*3/uL 0 .0-0.3 SP Automated blood basophil count (count/volume) 0.1 10*3/uL SP0.1 Blood manual differential performed dete ction - 12/05/18 09:13 POS Blood monocytes/100 leukocytes 23 % NRG SP Manual blood segmented neutrophils/100 leukocytes 55 % NRG SP Blood band neutrophils/100 leukocytes 2 % NRG SP Manual blood lymphocytes/100 leukocytes 17 % NRG SP Manual eosinophils/100 leukocytes in nose 3 % NRG SP Blood erythrocyte morphology finding identification NORMAL SP Lipase - 12/05/18 09:13 POS Lipase 53 U/L 8-78 SP Complete urinalysis with reflex to cultu re - 12/05/18 11:17 POS Urine color determination YELLOW NRG SP Urine clarity determination CLEAR NR G SP Urine pH measurement by test strip 7 5-9 SP Specific gravity of urine by test strip <= 1.016-1.022 SP Urine protein assay by test strip, semi-quantitative NEGATIVE SP NEGATIVE SP Urine glucose detection by automated test strip NE GATIVE SP Erythrocytes detection in urine sediment by light micr oscopy TRACE-I SP NEGATIVE SP Urine ketones detection by automated test strip NE GATIVE SP Urine nitrite detection by test strip NEGATIVE NEGATIVE SP Urine total bilirubin detection by test strip NEGA TIVE SP Urine urobilinogen measurement by automated test strip (mass/volume) SP mg/dL NORMAL SP Urine leukocyte esterase detection by dipstick NEG ATIVE SP Automated urine sediment erythrocyte cou nt by microscopy (number/high power SP NONE NRG SP Automated urine sediment leukocyte count by microscopy (number/high power field) SP NONE NRG SP Bacteria detection in urine sediment by light microsco py NEGATIVE SP NRG SP Squamous epithelial cells detection in u rine sediment by light microscopy SP RARE NRG SP Crystals detection in urine sediment by light microsco py NONE SP NRG SP Casts detection in urine sediment by light microscopy NONE SP Mucus detection in urine sediment by light microscopy NEGATIVE SP NRG SP Complete urinalysis with reflex to culture NO NRG SP Whole blood basic metabolic panel - 12/02 11:40 POS Serum or plasma sodium measurement (moles/volume) 135 mmol/L SP 135-145 SP Serum or plasma potassium measurement (moles/volume) 4.4 mmol/L SP 3.6-5.0 SP Serum or plasma chloride measurement (moles/volume) 98 mmol/L SP 98-107 SP Carbon dioxide 22 mmol/L 21-32 SP Serum or plasma anion gap determination (moles/volume) 15 mmol/L SP 5-14 SP Serum or plasma urea nitrogen measurement (mass/volume ) 19 mg/dL SP 7-18 SP Serum or plasma creatinine measurement (mass/volume) 0.87 mg/dL SP 0.60-1.30 SP Serum or plasma urea nitrogen/creatinine mass ratio 22 NRG SP Serum or plasma creatinine measurement w ith calculation of estimated glomerular SP rate > NRG SP Serum or plasma glucose measurement (mass/volume) 184 mg/dL SP105 Serum or plasma calcium measurement (mass/volume) 9.0 mg/dL SP10.1 Magnesium - 12/20/18 11:40 POS Magnesium 1.9 mg/dL 1.8-2.4 SP Automated blood complete blood count (he mogram) panel - 01/30/19 12:08 POS Blood leukocytes automated count (number/volume) 6.3 10*3/uL SP 4.3-11.0 SP Blood erythrocytes automated count (number/volume) 3.98 10*6/uL SP 4.35-5.85 SP Venous blood hemoglobin measurement (mass/volume) 13.9 g/dL SP17.7 Blood hematocrit (volume fraction) 42 % 40-54 SP Automated erythrocyte mean corpuscular volume 105 [foz_us] SP99 Automated erythrocyte mean corpuscular h emoglobin (mass per erythrocyte) SP 35 pg 25-34 SP Automated erythrocyte mean corpuscular h emoglobin concentration measurement SP 33 g/dL 32-36 SP Automated erythrocyte distribution width ratio 15. 6 % 10.0- SP Automated blood platelet count (count/volume) 131 10*3/uL SP400 Automated blood platelet mean volume measurement 11.7 [foz_us] SP 7.4-10.4 SP PT panel in platelet poor plasma by coag ulation assay - 01/30/19 12:08 POS Prothrombin time (PT) in platelet poor plasma by coagu lation assay SP s 12.2-14.7 SP INR in platelet poor plasma or blood by coagulation as say 1.0 SP 0.8-1.4 SP Activated partial thromboplastin time (a PTT) in platelet poor plasma POS assay - 01/30/19 12:08 Activated partial thromboplastin time (a PTT) in platelet poor plasma POS assay 32 s 24-35 SP Comprehensive metabolic panel - 01/30/19 12:08 POS Serum or plasma sodium measurement (moles/volume) 144 mmol/L SP 135-145 SP Serum or plasma potassium measurement (moles/volume) 3.7 mmol/L SP 3.6-5.0 SP Serum or plasma chloride measurement (moles/volume) 109 mmol/L SP 98-107 SP Carbon dioxide 23 mmol/L 21-32 SP Serum or plasma anion gap determination (moles/volume) 12 mmol/L SP 5-14 SP Serum or plasma urea nitrogen measurement (mass/volume ) 12 mg/dL SP 7-18 SP Serum or plasma creatinine measurement (mass/volume) 0.89 mg/dL SP 0.60-1.30 SP Serum or plasma urea nitrogen/creatinine mass ratio 13 NRG SP Serum or plasma creatinine measurement w ith calculation of estimated glomerular SP rate > NRG SP Serum or plasma glucose measurement (mass/volume) 102 mg/dL SP105 Serum or plasma calcium measurement (mass/volume) 9.3 mg/dL SP10.1 Serum or plasma total bilirubin measurement (mass/volu me) 1.0 mg/dL SP 0.1-1.0 SP Serum or plasma alkaline phosphatase paula surement (enzymatic activity/volume) SP 65 U/L 40-136 SP Serum or plasma aspartate aminotransfera se measurement (enzymatic SP 31 U/L 5-34 SP Serum or plasma alanine aminotransferase measurement (enzymatic activity/volume) SP 19 U/L 0-55 SP Serum or plasma protein measurement (mass/volume) 7.3 g/dL SP8.2 Serum or plasma albumin measurement (mass/volume) 3.8 g/dL SP4.5 CALCIUM CORRECTED 9.5 mg/dL 8.5-10.1 SP Lipid 1996 panel - 01/30/19 12:08 POS Serum or plasma triglyceride measurement (mass/volume) 160 mg/dL SP <150 SP Serum or plasma cholesterol measurement (mass/volume) 135 mg/dL SP < 200 SP Serum or plasma cholesterol in HDL measurement (mass/v olume) 48 mg/dL SP 40-60 SP Cholesterol in LDL [mass/volume] in serum or plasma by direct assay 71 SPmg/dL 1-129 SP Serum or plasma cholesterol in VLDL measurement (mass/ volume) 32 mg/dL SP 5-40 SP Methicillin resistant Staphylococcus aur eus (MRSA) screening culture - 01/30/19 POS Methicillin resistant Staphylococcus aureus (MRSA) scr eening culture POS NRG SP Complete blood count (CBC) with automate d white blood cell (WBC) differential - POS 09:52 Blood leukocytes automated count (number/volume) 5.2 10*3/uL POS 4.3-11.0 SP Blood erythrocytes automated count (number/volume) 4.28 10*6/uL SP 4.35-5.85 SP Venous blood hemoglobin measurement (mass/volume) 14.8 g/dL SP17.7 Blood hematocrit (volume fraction) 45 % 40-54 SP Automated erythrocyte mean corpuscular volume 106 [foz_us] SP99 Automated erythrocyte mean corpuscular h emoglobin (mass per erythrocyte) SP 35 pg 25-34 SP Automated erythrocyte mean corpuscular h emoglobin concentration measurement SP 33 g/dL 32-36 SP Automated erythrocyte distribution width ratio 14. 7 % 10.0- SP Automated blood platelet count (count/volume) 145 10*3/uL SP400 Automated blood platelet mean volume measurement 11.5 [foz_us] SP 7.4-10.4 SP Automated blood neutrophils/100 leukocytes 51 % 42-75 SP Automated blood lymphocytes/100 leukocytes 35 % 12-44 SP Blood monocytes/100 leukocytes 10 % 0-12 SP Automated blood eosinophils/100 leukocytes 4 % 0-10 SP Automated blood basophils/100 leukocytes 0 % 0-10 SP Blood neutrophils automated count (number/volume) 2.6 10*3 SP7.8 Blood lymphocytes automated count (number/volume) 1.8 10*3 SP4.0 Blood monocytes automated count (number/volume) 0. 5 10*3 SP1.0 Automated eosinophil count 0.2 10*3/uL 0 .0-0.3 SP Automated blood basophil count (count/volume) 0.0 10*3/uL SP0.1 PT panel in platelet poor plasma by coag ulation assay - 04/03/19 09:52 POS Prothrombin time (PT) in platelet poor plasma by coagu lation assay SP s 12.2-14.7 SP INR in platelet poor plasma or blood by coagulation as say 1.0 SP 0.8-1.4 SP Activated partial thromboplastin time (a PTT) in platelet poor plasma POS assay - 04/03/19 09:52 Activated partial thromboplastin time (a PTT) in platelet poor plasma POS assay 30 s 24-35 SP Comprehensive metabolic panel - 04/03/19 09:52 POS Serum or plasma sodium measurement (moles/volume) 139 mmol/L SP 135-145 SP Serum or plasma potassium measurement (moles/volume) 3.7 mmol/L SP 3.6-5.0 SP Serum or plasma chloride measurement (moles/volume) 99 mmol/L SP 98-107 SP Carbon dioxide 27 mmol/L 21-32 SP Serum or plasma anion gap determination (moles/volume) 13 mmol/L SP 5-14 SP Serum or plasma urea nitrogen measurement (mass/volume ) 14 mg/dL SP 7-18 SP Serum or plasma creatinine measurement (mass/volume) 1.01 mg/dL SP 0.60-1.30 SP Serum or plasma urea nitrogen/creatinine mass ratio 14 NRG SP Serum or plasma creatinine measurement w ith calculation of estimated glomerular SP rate > NRG SP Serum or plasma glucose measurement (mass/volume) 174 mg/dL SP105 Serum or plasma calcium measurement (mass/volume) 9.3 mg/dL SP10.1 Serum or plasma total bilirubin measurement (mass/volu me) 0.7 mg/dL SP 0.1-1.0 SP Serum or plasma alkaline phosphatase paula surement (enzymatic activity/volume) SP 100 U/L 40-136 SP Serum or plasma aspartate aminotransfera se measurement (enzymatic SP 36 U/L 5-34 SP Serum or plasma alanine aminotransferase measurement (enzymatic activity/volume) SP 21 U/L 0-55 SP Serum or plasma protein measurement (mass/volume) 7.2 g/dL SP8.2 Serum or plasma albumin measurement (mass/volume) 4.0 g/dL SP4.5 CALCIUM CORRECTED 9.3 mg/dL 8.5-10.1 SP Magnesium - 04/03/19 09:52 POS Magnesium 1.7 mg/dL 1.8-2.4 SP Serum or plasma troponin i.cardiac measu rement (mass/volume) - 04/03/19 09:52 POS Serum or plasma troponin i.cardiac measurement (mass/v olume) < ng/mL POS <0.30 SP PROBNP FS - 04/03/19 09:52 POS PROBNP FS 54.0 pg/mL <75.0 SP THYROID STIMULATING HORMONE - 04/03/19 0 9:52 POS THYROID STIMULATING HORMONE 0.42 u[iU]/mL 0.35-4.94 SP Complete urinalysis with reflex to cultu re - 04/03/19 10:22 POS Urine color determination YELLOW NRG SP Urine clarity determination CLEAR NR G SP Urine pH measurement by test strip 6.0 5-9 SP Specific gravity of urine by test strip 1.020 1.016-1.022 SP Urine protein assay by test strip, semi-quantitative NEGATIVE SP NEGATIVE SP Urine glucose detection by automated test strip NE GATIVE SP Erythrocytes detection in urine sediment by light micr oscopy TRACE SP NEGATIVE SP Urine ketones detection by automated test strip NE GATIVE SP Urine nitrite detection by test strip NEGATIVE NEGATIVE SP Urine total bilirubin detection by test strip NEGA TIVE SP Urine urobilinogen measurement by automated test strip (mass/volume) SP mg/dL NORMAL SP Urine leukocyte esterase detection by dipstick NEG ATIVE SP Automated urine sediment erythrocyte cou nt by microscopy (number/high power SP [HPF] NRG SP Automated urine sediment leukocyte count by microscopy (number/high power field) SP RARE NRG SP Bacteria detection in urine sediment by light microsco py NEGATIVE SP NRG SP Squamous epithelial cells detection in u rine sediment by light microscopy SP 0-2 NRG SP Crystals detection in urine sediment by light microsco py NONE SP NRG SP Casts detection in urine sediment by light microscopy NONE SP Mucus detection in urine sediment by light microscopy NEGATIVE SP NRG SP Complete urinalysis with reflex to culture NO NRG SP Complete blood count (CBC) with automate d white blood cell (WBC) differential - POS 18:26 Blood leukocytes automated count (number/volume) 7.6 10*3/uL POS 4.3-11.0 SP Blood erythrocytes automated count (number/volume) 4.03 10*6/uL SP 4.35-5.85 SP Venous blood hemoglobin measurement (mass/volume) 14.4 g/dL SP17.7 Blood hematocrit (volume fraction) 44 % 40-54 SP Automated erythrocyte mean corpuscular volume 109 [foz_us] SP99 Automated erythrocyte mean corpuscular h emoglobin (mass per erythrocyte) SP 36 pg 25-34 SP Automated erythrocyte mean corpuscular h emoglobin concentration measurement SP 33 g/dL 32-36 SP Automated erythrocyte distribution width ratio 15. 9 % 10.0- SP Automated blood platelet count (count/volume) 103 10*3/uL SP400 Automated blood platelet mean volume measurement 11.7 [foz_us] SP 7.4-10.4 SP Automated blood neutrophils/100 leukocytes 61 % 42-75 SP Automated blood lymphocytes/100 leukocytes 22 % 12-44 SP Blood monocytes/100 leukocytes 13 % 0-12 SP Automated blood eosinophils/100 leukocytes 4 % 0-10 SP Automated blood basophils/100 leukocytes 0 % 0-10 SP Blood neutrophils automated count (number/volume) 4.6 10*3 SP7.8 Blood lymphocytes automated count (number/volume) 1.7 10*3 SP4.0 Blood monocytes automated count (number/volume) 1. 0 10*3 SP1.0 Automated eosinophil count 0.3 10*3/uL 0 .0-0.3 SP Automated blood basophil count (count/volume) 0.0 10*3/uL SP0.1 Fibrin D-dimer FEU measurement in platel et poor plasma (mass/volume) - 06/09/19 POS Fibrin D-dimer FEU measurement in platelet poor plasma (mass/volume) POS ug/mL 0.00-0.49 SP Whole blood basic metabolic panel - 04/20 18:26 POS Serum or plasma sodium measurement (moles/volume) 143 mmol/L SP 135-145 SP Serum or plasma potassium measurement (moles/volume) 4.0 mmol/L SP 3.6-5.0 SP Serum or plasma chloride measurement (moles/volume) 106 mmol/L SP 98-107 SP Carbon dioxide 24 mmol/L 21-32 SP Serum or plasma anion gap determination (moles/volume) 13 mmol/L SP 5-14 SP Serum or plasma urea nitrogen measurement (mass/volume ) 14 mg/dL SP 7-18 SP Serum or plasma creatinine measurement (mass/volume) 0.99 mg/dL SP 0.60-1.30 SP Serum or plasma urea nitrogen/creatinine mass ratio 14 NRG SP Serum or plasma creatinine measurement w ith calculation of estimated glomerular SP rate > NRG SP Serum or plasma glucose measurement (mass/volume) 149 mg/dL SP105 Serum or plasma calcium measurement (mass/volume) 8.8 mg/dL SP10.1 Serum or plasma troponin i.cardiac measu rement (mass/volume) - 06/09/19 18:26 POS Serum or plasma troponin i.cardiac measurement (mass/v olume) < ng/mL POS <0.30 SP Serum or plasma C reactive protein measu rement (mass/volume) - 06/09/19 18:26 POS Serum or plasma C reactive protein measurement (mass/v olume) 0.36 POS 0.00-0.50 SP Complete urinalysis with reflex to cultu re - 08/03/19 12:10 POS Urine color determination YELLOW NRG SP Urine clarity determination CLEAR NR G SP Urine pH measurement by test strip 6.5 5-9 SP Specific gravity of urine by test strip 1.020 1.016-1.022 SP Urine protein assay by test strip, semi-quantitative NEGATIVE SP NEGATIVE SP Urine glucose detection by automated test strip NE GATIVE SP Erythrocytes detection in urine sediment by light micr oscopy 3+ SP NEGATIVE SP Urine ketones detection by automated test strip NE GATIVE SP Urine nitrite detection by test strip NEGATIVE NEGATIVE SP Urine total bilirubin detection by test strip NEGA TIVE SP Urine urobilinogen measurement by automated test strip (mass/volume) SP mg/dL NORMAL SP Urine leukocyte esterase detection by dipstick NEG ATIVE SP Automated urine sediment erythrocyte cou nt by microscopy (number/high power SP [HPF] NRG SP Automated urine sediment leukocyte count by microscopy (number/high power field) SP NONE NRG SP Bacteria detection in urine sediment by light microsco py NONE SP NRG SP Squamous epithelial cells detection in u rine sediment by light microscopy SP RARE NRG SP Crystals detection in urine sediment by light microsco py PRESENT SP NRG SP Casts detection in urine sediment by light microscopy NONE SP Mucus detection in urine sediment by light microscopy NEGATIVE SP NRG SP Complete urinalysis with reflex to culture NO NRG SP Calcium oxalate crystals detection in ur ine sediment by light microscopy SP RARE NRG SP Complete blood count (CBC) with automate d white blood cell (WBC) differential - POS 12:15 Blood leukocytes automated count (number/volume) 5.9 10*3/uL POS 4.3-11.0 SP Blood erythrocytes automated count (number/volume) 3.86 10*6/uL SP 4.35-5.85 SP Venous blood hemoglobin measurement (mass/volume) 14.0 g/dL SP17.7 Blood hematocrit (volume fraction) 42 % 40-54 SP Automated erythrocyte mean corpuscular volume 109 [foz_us] SP99 Automated erythrocyte mean corpuscular h emoglobin (mass per erythrocyte) SP 36 pg 25-34 SP Automated erythrocyte mean corpuscular h emoglobin concentration measurement SP 33 g/dL 32-36 SP Automated erythrocyte distribution width ratio 15. 0 % 10.0- SP Automated blood platelet count (count/volume) 131 10*3/uL SP400 Automated blood platelet mean volume measurement 11.8 [foz_us] SP 7.4-10.4 SP Automated blood neutrophils/100 leukocytes 52 % 42-75 SP Automated blood lymphocytes/100 leukocytes 33 % 12-44 SP Blood monocytes/100 leukocytes 11 % 0-12 SP Automated blood eosinophils/100 leukocytes 3 % 0-10 SP Automated blood basophils/100 leukocytes 1 % 0-10 SP Blood neutrophils automated count (number/volume) 3.1 10*3 SP7.8 Blood lymphocytes automated count (number/volume) 2.0 10*3 SP4.0 Blood monocytes automated count (number/volume) 0. 6 10*3 SP1.0 Automated eosinophil count 0.2 10*3/uL 0 .0-0.3 SP Automated blood basophil count (count/volume) 0.0 10*3/uL SP0.1 Comprehensive metabolic panel - 08/03/19 12:15 POS Serum or plasma sodium measurement (moles/volume) 143 mmol/L SP 135-145 SP Serum or plasma potassium measurement (moles/volume) 4.3 mmol/L SP 3.6-5.0 SP Serum or plasma chloride measurement (moles/volume) 106 mmol/L SP 98-107 SP Carbon dioxide 25 mmol/L 21-32 SP Serum or plasma anion gap determination (moles/volume) 12 mmol/L SP 5-14 SP Serum or plasma urea nitrogen measurement (mass/volume ) 13 mg/dL SP 7-18 SP Serum or plasma creatinine measurement (mass/volume) 0.96 mg/dL SP 0.60-1.30 SP Serum or plasma urea nitrogen/creatinine mass ratio 14 NRG SP Serum or plasma creatinine measurement w ith calculation of estimated glomerular SP rate > NRG SP Serum or plasma glucose measurement (mass/volume) 136 mg/dL SP105 Serum or plasma calcium measurement (mass/volume) 8.9 mg/dL SP10.1 Serum or plasma total bilirubin measurement (mass/volu me) 0.6 mg/dL SP 0.1-1.0 SP Serum or plasma alkaline phosphatase paula surement (enzymatic activity/volume) SP 113 U/L 40-136 SP Serum or plasma aspartate aminotransfera se measurement (enzymatic SP 27 U/L 5-34 SP Serum or plasma alanine aminotransferase measurement (enzymatic activity/volume) SP 20 U/L 0-55 SP Serum or plasma protein measurement (mass/volume) 6.8 g/dL SP8.2 Serum or plasma albumin measurement (mass/volume) 4.1 g/dL SP4.5 CALCIUM CORRECTED 8.8 mg/dL 8.5-10.1 SP Encounters ACCT No. Visit Date/Time Discharge Status POS Pt. Type Provider Facility Loc./Un it POS Complaint POS [id number] 08/03/2019 11:53:00 13:50:00 SP DIS Emergency TORRES ROBERTSON MD Via [facility] ER FS RT FLANK/ABD PAIN SP [id number] 07/09/2019 09:14:00 23:59:59 SP CLS Outpatient DEVAN CHACON, ALIX Carroll [facility] ORTHO SP [id number] 06/19/2019 14:00:00 14:00:00 SP CAN Preadmit MK CRONIN MD [facility] RAD ACUTE PAIN IN RIGHT SHOULDER SP [id number] 06/09/2019 18:10:00 19:48:00 SP DIS Emergency EDWARDS DO, NINA L [facility] ER FS RT ARM PAIN SP [id number] 04/30/2019 10:00:00 23:59:59 SP CLS Preadmit [facility]ON[facility] SP [id number] 2019 10:01:00 23:59:59 SP CLS Outpatient EVON JACKMAN [facility] LAB I48.0 SP [id number] 04/03/2019 12:45:00 10:34:00 SP DIS Inpatient PRANAY TORO MD [facility] 4TH PALPS PAF SP [id number] 03/19/2019 09:34:00 23:59:59 SP CLS Outpatient MK CRONIN MD Vi [facility] SP [id number] 02/27/2019 08:10:00 23:59:59 SP CLS Outpatient MK CRONIN MD [facility] RAD FS CHEST WALL PAIN SP [id number] 02/05/2019 09:15:00 23:59:59 SP CLS Outpatient MK RCONIN MD [facility] SP [id number] 01/30/2019 11:50:00 18:45:00 SP DIS Outpatient JOSEF CHACON FACC, ALI FACP CC DS SP [facility] CATH CHEST PAIN,P AF,SOB SP [id number] 01/02/2019 07:46:00 23:59:59 SP CLS Outpatient JOSEF CHACON FACC, ALI FACP CC DS SP [facility] CARD PAF SP [id number] 12/25/2018 09:39:00 23:59:59 SP CLS Outpatient MK CRONIN MD [facility] SP [id number] 12/05/2018 08:41:00 11:54:00 SP DIS Emergency ELINA CHACON, LAURA Velazquez [facility] ER FS CHEST PAIN; ABD PAIN SP [id number] 11/16/2018 16:30:00 13:26:00 SP DIS Inpatient CORTEZ CHACON, PRANAY Velazquez [facility] 4TH UTI,SMALL BOWEL OBSTRUCTION, SEVERE SEPSIS SP [id number] 11/14/2018 18:51:00 00:46:00 SP DIS Emergency VICENTEJONILYNSEYIS [facility] ER CHEST PAINS SP [id number] 11/13/2018 09:40:00 23:59:59 SP CLS Outpatient MK CRONIN MD [facility] SP [id number] 12/20/2018 12:12:00 SP Registration SP
== END 2019-08-03 13:50 | disposition home or self-care (01) ==
LOC: EDUNIT# 11:52 → ER FS 11:53
DX: N20.0 Calculus of kidney (principal); I10 Essential (primary) hypertension; F32.9 Major depressive disorder, single episode, unspecified; I48.91 Unspecified atrial fibrillation; G47.30 Sleep apnea, unspecified; Z87.19 Personal history of other diseases of the digestive system; Z85.828 Personal history of other malignant neoplasm of skin; Z99.89 Dependence on other enabling machines and devices; Z88.5 Allergy status to narcotic agent; Z88.8 Allergy status to other drugs, medicaments and biological substances; Z79.01 Long term (current) use of anticoagulants; Z87.891 Personal history of nicotine dependence; Z90.49 Acquired absence of other specified parts of digestive tract; Z90.89 Acquired absence of other organs; Z82.49 Family history of ischemic heart disease and other diseases of the circulatory system
CPT/HCPCS: 36415; 74176; 80053; 81000; 85025; 96374

== ENCOUNTER 2019-10-09 10:32 | Emergency (ER) | payer MEDICARE, OTHER ==
[~2019-10-09] VITALS: Ht 182.3 cm; Wt 122.7 kg
[~2019-10-09 10:32] MED LIST changes: -LISI1TAB26 PO; +MAGN400T6 PO; -MAGN400T8 PO; -SIMV10TA26 PO; +TAMS0.4C98 PO; -TMSL.4C PO
--- NOTE | 2019-10-09 11:04 | ED Upper Extremity ---
General Chief Complaint: Upper Extremity Stated Complaint: LT ARM PAIN History of Present Illness Date Seen by Provider: Oct 09, 2019 Time Seen by Provider: 10:40 Initial Comments Patient woke up this morning with left elbow pain directly over the brachial radialis sleeps on his back because he is on a CPAP machine is getting surgery on his neck due to numbness and tingling in the right arm did not have significant pain and certainly has no numbness or tingling in the left arm had this time is quite a few sores on both arms looks like folliculitis Onset: this morning Pain/Injury Location: left elbow Method of Injury: unknown Modifying Factors: Improves With Movement Allergies and Home Medications Allergies Coded Allergies: morphine (Unverified Allergy, Severe, HEART STOPPED, 11/17/18) hydromorphone HCl (Unverified Allergy, Unknown, HIVES, 11/14/18) oxycodone (Unverified Allergy, Unknown, HIVES, 11/14/18) infliximab-dyyb (Unverified Adverse Reaction, Severe, ATRIAL FIB, 12/05/18) PT WENT INTO A FIB WHILE RECEIVING INFUSION meperidine HCl (Unverified Adverse Reaction, Mild, N/V, 11/17/18) Home Medications Apixaban 5 Mg Tablet, 5 MG PO BID Prescribed by: PRANAY TORO on 04/04/19 1021 Azathioprine 50 Mg Tablet, 100 MG PO HS, (Reported) TAKES 2 (50MG) TABLETS Azathioprine 50 Mg Tablet, 150 MG PO DAILY, (Reported) TAKES 3 (50MG) TABLETS Cholestyramine 5 Gm Powder, 4 GM PO BID PRN for DIARRHEA, (Reported) Cyanocobalamin 1,000 Mcg/Ml Inj, 1,000 MCG IM MONTHLY, (Reported) Diphenoxylate HCl/Atropine 1 Each Tablet, 2 TAB PO QID PRN for DIARRHEA, (Reported) Doxazosin Mesylate 1 Mg Tablet, 1 MG PO BID PRN for BLOOD PRESSURE, (Reported) USE IF SYSTOLIC BP IS <180 Ergocalciferol (Vitamin D2) 50,000 Unit Capsule, 50,000 UNIT PO Mo, (Reported) Fish Oil/Dha/Epa 1 Each Capsule, 1,200 MG PO DAILY, (Reported) Folic Acid 0.4 Mg Tablet, 0.4 MG PO DAILY, (Reported) Infliximab 100 Mg Soln, 10 MG IV Q6 WEEKS, (Reported) Roseacidoph & Paracasei,B.lactis 1 Each Capsule, 1 CAP PO DAILY, (Reported) Loperamide HCl 2 Mg Tablet, 2 MG PO TID PRN for DIARRHEA, (Reported) Magnesium Oxide 400 Mg Tablet, 400 MG PO BID, (Reported) Metoprolol Succinate 200 Mg Tab.er.24h, 200 MG PO DAILY Prescribed by: PRANAY TORO on 04/04/19 1021 Montelukast Sodium 10 Mg Tablet, 10 MG PO HS, (Reported) Multivitamin 1 Each Tablet, 1 TAB PO DAILY, (Reported) Pantoprazole Sodium 40 Mg Tablet.dr, 40 MG PO DAILY, (Reported) Paroxetine HCl 20 Mg Tablet, 20 MG PO DAILY, (Reported) Potassium Citrate 10 Meq Tablet.er, 20 MEQ PO DAILY, (Reported) Potassium Citrate 10 Meq Tablet.er, 10 MEQ PO HS, (Reported) Simvastatin 10 Mg Tablet, 10 MG PO DAILY, (Reported) Tadalafil 5 Mg Tablet, 5 MG PO PRN, (Reported) Tamsulosin HCl 0.4 Mg Cap, 0.4 MG PO HS, (Reported) Patient Home Medication List Home Medication List Reviewed: Yes Review of Systems Constitutional: No chills, No fever EENTM: No ear discharge, No ear pain, No blurred vision, No double vision Respiratory: No orthopnea, No wheezing Cardiovascular: No chest pain, No palpitations Gastrointestinal: No abdominal pain, No nausea, No vomiting Musculoskeletal: joint pain; No joint swelling; muscle pain; No muscle weakness Skin: No dryness; lesions Psychiatric/Neurological: Denies Headache, Denies Numbness, Denies Tingling Past Zafaimh-Pdlcoe-Vggyxb Hx Past Med/Social Hx: Reviewed Nursing Past Med/Soc Hx Patient Social History Type Used: Cigarettes Former Smoker, Quit: Oct 03, 2013 2nd Hand Smoke Exposure: No Recent Foreign Travel: No Recent Hopitalizations: No Immunizations Up To Date PED Vaccines UTD: Yes Date of Pneumonia Vaccine: Apr 03, 2018 Date of Influenza Vaccine: Aug 11, 2018 Seasonal Allergies Seasonal Allergies: Yes (TAKES ALLERGY SHOTS) Past Medical History Surgeries: Yes (SMALL BOWEL RESECTION) Abdominal, Appendectomy, Bowel Surgery, Gallbladder, Tonsillectomy, Transurethral Resection, Vasectomy Respiratory: Yes (TASH WITH CPAP) Currently Using CPAP: Yes Currently Using BIPAP: No Cardiac: Yes (CARDIOVERSION 11/16/18) Atrial Fibrillation, Hypertension Neurological: No Reproductive Disorders: No Sexually Transmitted Disease: No Genitourinary: Yes (HX ESWL) Benign Prostatic Hyperpl, Kidney Stones Gastrointestinal: Yes (REMICADE (ALLERGY INFLECTRA)) Abdominal Hernia, Crohns Disease Musculoskeletal: No Endocrine: Yes (CUSHINGS DISEASE) Adrenal Disease HEENT: No 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 Heart Disease, Diabetes, Other Conditions/Hx Physical Exam Vital Signs Vital Signs - First Documented 10/09/19 10:35 Temp 36.1 Pulse 85 Resp 18 B/P (MAP) 124/78 (93) Pulse Ox 98 O2 Delivery Room Air Capillary Refill : Height, Weight, BMI Height: 6'0" Weight: 260lbs. 0.0oz. [id number]; 36.00 BMI Method:Stated General Appearance: WD/WN, no apparent distress HEENT: PERRL/EOMI Neck: other (decreased range of motion with some tenderness) Shoulder: normal inspection, non-tender Elbow/Forearm: pain (tenderness in the left brachial radialis muscle with poor rotation both supination and pronation specifically against resistance fair range of motion at the elbow good range of motion at the shoulder) Wrist: Yes normal inspection, Yes non-tender Neurologic/Psychiatric: alert, oriented x 3, other (no numbness on the left extremity) Skin: other (multiple superficial skin lesions consistent with folliculitis and some kind) Progress/Results/Core Measures Results/Orders My Orders Orders - SMITHA LANDA JR, MD Elbow 3 View Left (10/09/19 10:49) Ekg Tracing (10/09/19 10:52) Vital Signs/I&O 10/09/19 10:35 Temp 36.1 Pulse 85 Resp 18 B/P (MAP) 124/78 (93) Pulse Ox 98 O2 Delivery Room Air Progress Progress Note : Time: 11:20 Progress Note Drugs due to a lateral epicondylitis that he got while sleeping straining ligaments during sleep due to position is on quite a few medications at this time would not add anything to that would use hot packs gentle range of motion of follow-up for his regular treatment of his neck problem Departure Impression Primary Impression: Lateral epicondylitis, left elbow Disposition: 01 HOME, SELF-CARE Condition: Stable Departure-Patient Inst. Referrals: MK CRONIN MD (PCP/Family) Primary Care Physician Patient Instructions: Elbow Tendinopathy (Tennis and Golf Elbow) SMITHA LANDA JR, MD Oct 09, 2019 11:03
--- NOTE | 2019-10-09 11:09 | Diagnostic Imaging Report ---
INDICATION: Awoke with painful limitations in range of motion. FINDINGS: No pathologically displaced fat pad is found. No bony destruction, fracture, or dislocation. No radiodense loose body. There are arthritic changes to the elbow. No acute articular irregularity. IMPRESSION: Degenerative changes, otherwise negative. Dictated by: Dictated on workstation # [id number]
[2019-10-09 11:45] VITALS: BP 124/78
== END 2019-10-09 11:45 | disposition home or self-care (01) ==
LOC: EDUNIT# 10:32 → ER FS 10:33
DX: M77.12 Lateral epicondylitis, left elbow (principal); I10 Essential (primary) hypertension; I48.91 Unspecified atrial fibrillation; F32.9 Major depressive disorder, single episode, unspecified; G47.33 Obstructive sleep apnea (adult) (pediatric); Z85.828 Personal history of other malignant neoplasm of skin; Z87.442 Personal history of urinary calculi; Z99.89 Dependence on other enabling machines and devices; Z88.5 Allergy status to narcotic agent; Z88.8 Allergy status to other drugs, medicaments and biological substances; Z79.01 Long term (current) use of anticoagulants; Z87.891 Personal history of nicotine dependence; Z90.49 Acquired absence of other specified parts of digestive tract; Z90.89 Acquired absence of other organs; Z82.49 Family history of ischemic heart disease and other diseases of the circulatory system
CPT/HCPCS: 73080; 93005

== ENCOUNTER 2019-10-30 15:38 | Emergency (ER) | payer MEDICARE, OTHER ==
[~2019-10-30] VITALS: Ht 180.3 cm; Wt 119.4 kg
[~2019-10-30 15:38] MED LIST changes: +LISI1TAB26 PO; -MAGN400T6 PO; +MAGN400T8 PO; +SIMV10TA26 PO; -TAMS0.4C98 PO; +TMSL.4C PO
[2019-10-30] MEDS ORDERED: HYDROcodone/APAP 7.5 MG/325 MG (LORTAB, LORCET PLUS) TABLET PO ONE (16:00)
--- NOTE | 2019-10-30 16:02 | ED General ---
General Chief Complaint: Cardiac/General Problems Stated Complaint: BLOOD PRESSURE HIGH Source of Information: Patient Exam Limitations: No Limitations History of Present Illness Date Seen by Provider: Oct 30, 2019 Time Seen by Provider: 15:50 Initial Comments The patient is a 64-year-old male presents for evaluation of hypertension. He states that he had a recent vertebral surgery at [facility] and was sent home with Toradol and Ultram. He states he'll tram is not helping with his pain and that he has been fighting the insurance company over the Toradol. He states that he has not been sleeping well because of the pain and to his blood pressure today and noticed that it was elevated. Upon arrival it is 168/91. Does have a history of hypertension. He denies chest pain, shortness of breath, nausea or vomiting, fevers or chills, diaphoresis, abdominal or back pain, palpitations or syncope. He is alert and oriented 4, calm, and appears to be in no distress at this time. Timing/Duration: 1 Week Severity: Mild Associated Systoms: Denies Symptoms Allergies and Home Medications Allergies Coded Allergies: morphine (Unverified Allergy, Severe, HEART STOPPED, 11/17/18) hydromorphone HCl (Unverified Allergy, Unknown, HIVES, 11/14/18) oxycodone (Unverified Allergy, Unknown, HIVES, 11/14/18) infliximab-dyyb (Unverified Adverse Reaction, Severe, ATRIAL FIB, 12/05/18) PT WENT INTO A FIB WHILE RECEIVING INFUSION meperidine HCl (Unverified Adverse Reaction, Mild, N/V, 11/17/18) Home Medications Apixaban 5 Mg Tablet, 5 MG PO BID Prescribed by: PRANAY TORO on 04/04/19 1021 Azathioprine 50 Mg Tablet, 100 MG PO HS, (Reported) TAKES 2 (50MG) TABLETS Azathioprine 50 Mg Tablet, 150 MG PO DAILY, (Reported) TAKES 3 (50MG) TABLETS Cholestyramine 5 Gm Powder, 4 GM PO BID PRN for DIARRHEA, (Reported) Cyanocobalamin 1,000 Mcg/Ml Inj, 1,000 MCG IM MONTHLY, (Reported) Diphenoxylate HCl/Atropine 1 Each Tablet, 2 TAB PO QID PRN for DIARRHEA, (Reported) Doxazosin Mesylate 1 Mg Tablet, 1 MG PO BID PRN for BLOOD PRESSURE, (Reported) USE IF SYSTOLIC BP IS <180 Ergocalciferol (Vitamin D2) 50,000 Unit Capsule, 50,000 UNIT PO Mo, (Reported) Fish Oil/Dha/Epa 1 Each Capsule, 1,200 MG PO DAILY, (Reported) Folic Acid 0.4 Mg Tablet, 0.4 MG PO DAILY, (Reported) Infliximab 100 Mg Soln, 10 MG IV Q6 WEEKS, (Reported) L.acidoph & Paracasei,B.lactis 1 Each Capsule, 1 CAP PO DAILY, (Reported) Loperamide HCl 2 Mg Tablet, 2 MG PO TID PRN for DIARRHEA, (Reported) Magnesium Oxide 400 Mg Tablet, 400 MG PO BID, (Reported) Metoprolol Succinate 200 Mg Tab.er.24h, 200 MG PO DAILY Prescribed by: PRANAY TORO on 04/04/19 1021 Montelukast Sodium 10 Mg Tablet, 10 MG PO HS, (Reported) Multivitamin 1 Each Tablet, 1 TAB PO DAILY, (Reported) Pantoprazole Sodium 40 Mg Tablet.dr, 40 MG PO DAILY, (Reported) Paroxetine HCl 20 Mg Tablet, 20 MG PO DAILY, (Reported) Potassium Citrate 10 Meq Tablet.er, 20 MEQ PO DAILY, (Reported) Potassium Citrate 10 Meq Tablet.er, 10 MEQ PO HS, (Reported) Simvastatin 10 Mg Tablet, 10 MG PO DAILY, (Reported) Tadalafil 5 Mg Tablet, 5 MG PO PRN, (Reported) Tamsulosin HCl 0.4 Mg Cap, 0.4 MG PO HS, (Reported) Patient Home Medication List Home Medication List Reviewed: Yes Review of Systems Review of Systems Constitutional: no symptoms reported EENTM: no symptoms reported Respiratory: no symptoms reported Cardiovascular: no symptoms reported Gastrointestinal: no symptoms reported Genitourinary: no symptoms reported Musculoskeletal: neck pain (recent surgery) Skin: no symptoms reported Psychiatric/Neurological: No Symptoms Reported Hematologic/Lymphatic: No Symptoms Reported Immunological/Allergic: no symptoms reported All Other Systems Reviewed Negative Unless Noted: Yes Past Yafersy-Nyxkkv-Cgvtbv Hx Past Med/Social Hx: Reviewed Nursing Past Med/Soc Hx Patient Social History Type Used: Cigarettes Former Smoker, Quit: Oct 03, 2013 2nd Hand Smoke Exposure: No Recent Foreign Travel: No Contact w/Someone Who Travel: No Recent Hopitalizations: No Immunizations Up To Date PED Vaccines UTD: Yes Date of Pneumonia Vaccine: Apr 03, 2018 Date of Influenza Vaccine: Aug 11, 2018 Seasonal Allergies Seasonal Allergies: Yes (TAKES ALLERGY SHOTS) Past Medical History Surgeries: Yes (SMALL BOWEL RESECTION) Abdominal, Appendectomy, Bowel Surgery, Gallbladder, Tonsillectomy, Transurethral Resection, Vasectomy Respiratory: Yes (TASH WITH CPAP) Currently Using CPAP: Yes Currently Using BIPAP: No Cardiac: Yes (CARDIOVERSION 11/16/18) Atrial Fibrillation, Hypertension Neurological: No Reproductive Disorders: No Sexually Transmitted Disease: No Genitourinary: Yes (HX ESWL) Benign Prostatic Hyperpl, Kidney Stones Gastrointestinal: Yes (REMICADE (ALLERGY INFLECTRA)) Abdominal Hernia, Crohns Disease Musculoskeletal: No Endocrine: Yes (CUSHINGS DISEASE) Adrenal Disease HEENT: No 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 Heart Disease, Diabetes, Other Conditions/Hx Physical Exam Vital Signs Vital Signs - First Documented 10/30/19 15:48 Temp 36.7 Pulse 68 Resp 21 B/P (MAP) 174/97 (122) Pulse Ox 98 O2 Delivery Room Air Capillary Refill : Height, Weight, BMI Height: 6'0" Weight: 260lbs. 0.0oz. 117.966965wq; 36.00 BMI Method:Stated General Appearance: No Apparent Distress, WD/WN Eyes: Bilateral Eye Normal Inspection, Bilateral Eye PERRL, Bilateral Eye EOMI HEENT: PERRL/EOMI, Normal ENT Inspection Neck: Other (c-collar in place, anterior surgical dressing in place, ) Respiratory: Chest Non Tender, Lungs Clear, Normal Breath Sounds, No Accessory Muscle Use, No Respiratory Distress Cardiovascular: Regular Rate, Rhythm, No Edema, No Murmur Gastrointestinal: Normal Bowel Sounds, No Organomegaly, No Pulsatile Mass, Non Tender Extremity: Normal Capillary Refill, Normal Inspection, Non Tender Neurologic/Psychiatric: Alert, Oriented x3, No Motor/Sensory Deficits, Normal Mood/Affect Skin: Normal Color, Warm/Dry Progress/Results/Core Measures Suspected Sepsis SIRS Temperature: Pulse: Respiratory Rate: Blood Pressure / Mean: Results/Orders My Orders Orders - MARY JUSTICE DO Ketorolac Injection (Toradol Injection) (10/30/19 16:15) Vital Signs/I&O 10/30/19 15:48 Temp 36.7 Pulse 68 Resp 21 B/P (MAP) 174/97 (122) Pulse Ox 98 O2 Delivery Room Air Capillary Refill : Progress Note : Progress Note @1620 - Patient's blood pressures coming down spontaneously with pain medication. Advised the patient to follow up with his orthopedic surgeon in the next few days. Advise him to continue taking his home medications as well. Workup today fails reveal any emergent pathology. The patient is stable for discharge at this time. Departure Impression Primary Impression: Hypertension Additional Impression: Post-op pain Disposition: 01 HOME, SELF-CARE Condition: Stable Departure-Patient Inst. Decision time for Depature: 16:26 Referrals: MK CRONIN MD (PCP/Family) Primary Care Physician Patient Instructions: High Blood Pressure (DC) Add. Discharge Instructions: Take the pain medications prescribed by her orthopedic surgeon. Return to the Emergency Department immediately for new or worsening symptoms. MARY JUSTICE DO Oct 30, 2019 16:02
[2019-10-30] MEDS ORDERED: KETOROLAC 60 MG/2 ML VIAL IM ONE (16:15)
[2019-10-30 16:45] VITALS: BP 141/67
== END 2019-10-30 16:45 | disposition home or self-care (01) ==
LOC: EDUNIT# 15:38 → ER FS 15:39
DX: I10 Essential (primary) hypertension (principal); G89.18 Other acute postprocedural pain; F32.9 Major depressive disorder, single episode, unspecified; I48.91 Unspecified atrial fibrillation; G47.30 Sleep apnea, unspecified; Z99.89 Dependence on other enabling machines and devices; Z87.442 Personal history of urinary calculi; Z85.828 Personal history of other malignant neoplasm of skin; Z88.5 Allergy status to narcotic agent; Z88.8 Allergy status to other drugs, medicaments and biological substances; Z79.01 Long term (current) use of anticoagulants; Z87.891 Personal history of nicotine dependence; Z90.49 Acquired absence of other specified parts of digestive tract; Z90.89 Acquired absence of other organs
CPT/HCPCS: 99284

== ENCOUNTER 2019-12-22 11:10 | Emergency (ER) | payer MEDICARE, OTHER ==
[~2019-12-22] VITALS: Ht 183 cm; Wt 121.2 kg
[~2019-12-22 11:10] MED LIST changes: -MONT10TA24 PO; +MONT10TA26 PO
--- OUTSIDE RECORDS SUMMARY | 2019-12-22 11:17 | XMS REPORT | Continuity of Care Document ---
Author Organization Unknown Address Unknown Phone Unavailable Allergies Active Description Code Type Severity Reaction Onset Reported/Identified Relationship to Patient Clinical Status Yes hydromorphone HCl [id number] Drug Allergy Unknown HIVES 11/14/[id number] lynne Allergy Unknown N/V 11/14/2018 Yes oxycodone [id number] Drug Allergy Unknown HIVES 11/14/2018 Yes morphine [id number] Drug Allergy Severe HEART STOPPED 11/17/[id number] lynne Allergy Mild N/V 11/17/2018 Yes infliximab-dyyb [id number] D rug Allergy Severe ATRIAL FIB 12/05/2018 Medications There is no data. Problems Date Dx Coded Attending Type Code Diagnosis Diagnosed By 11/14/2018 MK CRONIN MD Ot K50.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, UNSPECIFIED, WITHOUT CO 11/14/2018 MK CRONIN MD Ot K50.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, UNSPECIFIED, WITHOUT CO 11/15/2018 LUIZA JUÁREZ Ot I10 ESSENTIAL (PRIMARY) HYPERTENSION 11/15/2018 MARQUITA LUIZA Ot R07.89 OTHER CHEST PAIN 11/15/2018 LYNSEY JUÁREZIS Ot R11.2 NAUSEA WITH VOMITING, UNSPECIFIED 11/15/2018 LYNSEY JUÁREZIS Ot T50.995A ADVERSE EFFECT OF DRUG/MEDS/BIOL SUBST, 11/15/2018 BERNJONI LUIZA Ot Z79.52 COLD ROLLING COORDINATOR (CURRENT) USE OF SYSTEMIC STER 11/15/2018 MARQUITA LUIZA Ot Z87.19 PERSONAL HISTORY OF OTHER DISEASES OF TH 11/15/2018 LYNSEY JUÁREZIS Ot Z87.442 PERSONAL HISTORY OF URINARY CALCULI 11/15/2018 LYNSEY JUÁREZIS Ot Z88.5 ALLERGY STATUS TO NARCOTIC AGENT STATUS 11/15/2018 LYNSEY JUÁREZIS Ot Z88.8 ALLERGY STATUS TO OTH DRUG/MEDS/BIOL SUB 11/15/2018 LYNSEY JUÁREZIS Ot Z90.79 ACQUIRED ABSENCE OF OTHER GENITAL ORGAN( 11/15/2018 LYNSEY JUÁREZIS Ot Z90.89 ACQUIRED ABSENCE OF OTHER ORGANS 11/15/2018 LYNSEY JUÁRZEIS Ot Z98.890 OTHER SPECIFIED POSTPROCEDURAL STATES 11/15/2018 ROSEANNE CHACON, MK Velazquez Ot K50.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, UNSPECIFIED, WITHOUT CO 11/16/2018 BERNOT LUIZA Ot I10 ESSENTIAL (PRIMARY) HYPERTENSION 11/16/2018 MARQUITA LUIZA Ot R07.89 OTHER CHEST PAIN 11/16/2018 BERNJONI LUIZA Ot R11.2 NAUSEA WITH VOMITING, UNSPECIFIED 11/16/2018 MARQUITA LUIZA Ot T50.995A ADVERSE EFFECT OF DRUG/MEDS/BIOL SUBST, 11/16/2018 MARQUITA LUIZA Ot Z79.52 COLD ROLLING COORDINATOR (CURRENT) USE OF SYSTEMIC STER 11/16/2018 MARQUITA LUIZA Ot Z87.19 PERSONAL HISTORY OF OTHER DISEASES OF TH 11/16/2018 VICENTEJONI LUIZA Ot Z87.442 PERSONAL HISTORY OF URINARY CALCULI 11/16/2018 MARQUITA LUIZA Ot Z88.5 ALLERGY STATUS TO NARCOTIC AGENT STATUS 11/16/2018 MARQUITA LUIZA Ot Z88.8 ALLERGY STATUS TO OTH DRUG/MEDS/BIOL SUB 11/16/2018 MARQUITA LUIZA Ot Z90.79 ACQUIRED ABSENCE OF OTHER GENITAL ORGAN( 11/16/2018 LYNSEY JUÁREZIS Ot Z90.89 ACQUIRED ABSENCE OF OTHER ORGANS 11/16/2018 LYNSEY JUÁREZIS Ot Z98.890 OTHER SPECIFIED POSTPROCEDURAL STATES 11/21/2018 PRANAY TORO MD Ot A41. 9 SEPSIS, UNSPECIFIED ORGANISM 11/21/2018 PRANAY TORO MD Ot D69. 6 THROMBOCYTOPENIA, UNSPECIFIED 11/21/2018 PRANAY TORO MD Ot E24. 9 MAXIME'S SYNDROME, UNSPECIFIED 11/21/2018 PRANAY TORO MD Ot E83. 42 HYPOMAGNESEMIA 11/21/2018 PRANAY TORO MD Ot E87. 1 HYPO-OSMOLALITY AND HYPONATREMIA 11/21/2018 PRANAY TORO MD Ot E87. 6 HYPOKALEMIA 11/21/2018 PRANAY TORO MD Ot I10 ESSENTIAL (PRIMARY) HYPERTENSION 11/21/2018 PRANAY TORO MD Ot I48. 0 PAROXYSMAL ATRIAL FIBRILLATION 11/21/2018 PRANAY TORO MD Ot 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, UNSPECIFIED, WITH INTES 11/21/2018 PRANAY TORO MD Ot N17. 0 ACUTE KIDNEY FAILURE WITH TUBULAR NECROS 11/21/2018 PRANAY TORO MD Ot N20. 0 CALCULUS OF KIDNEY 11/21/2018 PRANAY TORO MD Ot N30. 00 ACUTE CYSTITIS WITHOUT HEMATURIA 11/21/2018 PRANAY TORO MD Ot R65. 21 SEVERE SEPSIS WITH SEPTIC SHOCK 11/22/2018 PRANAY TORO MD Ot A41. 1 SEPSIS DUE TO OTHER SPECIFIED STAPHYLOCO 11/22/2018 PRANAY TORO MD Ot D69. 6 THROMBOCYTOPENIA, UNSPECIFIED 11/22/2018 PRANAY TORO MD Ot E24. 9 MAXIME'S SYNDROME, UNSPECIFIED 11/22/2018 PRANAY TORO MD Ot E83. 42 HYPOMAGNESEMIA 11/22/2018 PRANAY TORO MD Ot E86. 9 VOLUME DEPLETION, UNSPECIFIED 11/22/2018 PRANAY TORO MD Ot E87. 1 HYPO-OSMOLALITY AND HYPONATREMIA 11/22/2018 PRANAY TORO MD Ot E87. 6 HYPOKALEMIA 11/22/2018 PRANAY TORO MD Ot I10 ESSENTIAL (PRIMARY) HYPERTENSION 11/22/2018 PRANAY TORO MD Ot I48. 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 2 POSTSURGICAL MALABSORPTION, NOT ELSEWHER 11/22/2018 PRANAY TORO MD Ot N17. 0 ACUTE KIDNEY FAILURE WITH TUBULAR NECROS 11/22/2018 PRANAY TORO MD Ot N20. 0 CALCULUS OF KIDNEY 11/22/2018 PRANAY TORO MD Ot N30. 00 ACUTE CYSTITIS WITHOUT HEMATURIA 11/22/2018 PRANAY TORO MD Ot R65. 21 SEVERE SEPSIS WITH SEPTIC SHOCK 12/05/2018 LAURA ANTOINE MD Ot I10 ESSENTIAL (PRIMARY) HYPERTENSION 12/05/2018 LAURA ANTOINE MD Ot K50.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, UNSPECIFIED, WITHOUT CO 12/05/2018 LAURA ANTOINE MD Ot R07.89 OTHER CHEST PAIN 12/05/2018 LAURA ANTOINE MD Ot Z79.52 CORRECTION (CURRENT) USE OF SYSTEMIC STER 12/05/2018 LAURA ANTOINE MD Ot Z79.82 COLD ROLLING COORDINATOR (CURRENT) USE OF ASPIRIN 12/05/2018 LAURA ANTOINE MD Ot Z85.828 PERSONAL HISTORY OF OTHER MALIGNANT NEOP 12/05/2018 LAURA ANTOINE MD Ot Z87.19 PERSONAL HISTORY OF OTHER DISEASES OF 12/05/2018 LAURA ANTOINE MD Ot Z87.442 PERSONAL HISTORY OF URINARY CALCULI 12/05/2018 LAURA ANTOINE MD Ot Z88 .5 ALLERGY STATUS TO NARCOTIC AGENT STATUS 12/05/2018 LAURA ANTOINE MD Ot Z88 .8 ALLERGY STATUS TO OTH DRUG/MEDS/BIOL SUB 12/05/2018 [...] PAIN 12/07/2018 LAURA ANTOINE MD Ot Z79.52 CORRECTION (CURRENT) USE OF SYSTEMIC STER 12/07/2018 LAURA ANTOINE MD Ot Z79.82 COLD ROLLING COORDINATOR (CURRENT) USE OF ASPIRIN 12/07/2018 LAURA ANTOINE MD Ot Z85.828 PERSONAL HISTORY OF OTHER MALIGNANT NEOP 12/07/2018 LAURA ANTOINE MD Ot Z87.19 PERSONAL HISTORY OF OTHER DISEASES OF 12/07/2018 LAURA ANTOINE MD Ot Z87.442 PERSONAL HISTORY OF URINARY CALCULI 12/07/2018 ELINA CHACON, LAURA Velazquez Ot Z88 .5 ALLERGY STATUS TO NARCOTIC AGENT STATUS 12/07/2018 LAURA ANTOINE MD Ot Z88 .8 ALLERGY STATUS TO OTH DRUG/MEDS/BIOL SUB 12/07/2018 LAURA ANTOINE MD Ot Z90.49 ACQUIRED ABSENCE OF OTHER SPECIFIED PART 12/07/2018 LAURA ANTOINE MD Ot Z90.89 ACQUIRED ABSENCE OF OTHER ORGANS 12/07/2018 LAURA ANTOINE MD Ot Z98.52 VASECTOMY STATUS 12/07/2018 LAURA ANTOINE MD Ot Z98.890 OTHER SPECIFIED POSTPROCEDURAL STATES 12/14/2018 MK CRONIN MD Ot K50.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, UNSPECIFIED, WITHOUT CO 12/21/2018 Ot K50.00 BREEDING MANAGER HN'S DISEASE OF SMALL INTESTINE WITHO 12/25/2018 MK [...] OT DISORDERS OF ELECTROLYTE AND FLUID B 01/03/2019 [...] DISEASE, UNSPECIFIED, WITHOUT CO 01/11/2019 Ot K50.00 BREEDING MANAGER HN'S DISEASE OF SMALL INTESTINE WITHO 01/26/2019 JOSEF [...] CHACON FACC, ALI FACP CCDS Ot Z79.01 COLD ROLLING COORDINATOR (CURRENT) USE OF ANTICOAGULANT 01/30/2019 JOSEF CHACON FACC, ALI FACP CCDS Ot Z79.899 OTHER COLD ROLLING COORDINATOR (CURRENT) DRUG THERAPY 01/30/2019 JOSEF CHACON FACC, [...] CHACON FACC, ALI FACP CCDS Ot Z79.01 COLD ROLLING COORDINATOR (CURRENT) USE OF ANTICOAGULANT 02/01/2019 JOSEF CHACON FACC, ALI FACP CCDS Ot Z79.899 OTHER CORRECTION (CURRENT) DRUG THERAPY 02/01/2019 JOSEF CHACON FACC, [...] MD Ot I25.10 ATHSCL HEART DISEASE OF [place] CORONARY 02/28/2019 MK CRONIN MD Ot J43.9 [...] MD Ot I25.10 ATHSCL HEART DISEASE OF [place] CORONARY 03/22/2019 MK CRONIN MD Ot J43.9 [...] DISEASE, UNSPECIFIED, WITHOUT CO 04/03/2019 Ot K50.00 BREEDING MANAGER HN'S DISEASE OF SMALL INTESTINE WITHO 04/03/2019 MK [...] R06.02 SHORTNESS OF BREATH 04/03/2019 MK CRONIN MD Ot K50.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, UNSPECIFIED, WITHOUT CO 04/03/2019 MK CRONIN MD Ot I25.10 ATHSCL HEART DISEASE OF [place] CORONARY 04/03/2019 MK CRONIN MD Ot J43.9 EMPHYSEMA, UNSPECIFIED 04/03/2019 MK CRONIN MD Ot M25.551 PAIN IN RIGHT HIP 04/03/2019 MK CRONIN MD Ot R91.8 OTHER NONSPECIFIC ABNORMAL FINDING OF SACHIN 04/03/2019 MK CRONIN MD Ot Z98.890 OTHER SPECIFIED POSTPROCEDURAL STATES 04/03/2019 MK CRONIN MD Ot 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 9 MAXIME'S SYNDROME, UNSPECIFIED 04/04/2019 PRANAY TORO MD Ot E66. 9 OBESITY, UNSPECIFIED 04/04/2019 PRANAY TORO MD Ot E86. 0 DEHYDRATION 04/04/2019 PRAANY TORO MD Ot F32. 9 MAJOR DEPRESSIVE DISORDER, SINGLE EPISOD 04/04/2019 PRANAY TORO MD Ot G47. 33 OBSTRUCTIVE SLEEP APNEA (ADULT) (PEDIATR 04/04/2019 PRANAY TORO MD Ot I10 ESSENTIAL (PRIMARY) HYPERTENSION 04/04/2019 PRANAY TORO MD Ot I48. 0 PAROXYSMAL ATRIAL FIBRILLATION 04/04/2019 PRANAY TORO MD Ot K50.919 CROHN'S DISEASE, UNSPECIFIED, WITH UNSPE 04/04/2019 PRANAY TORO MD Ot N40. 0 BENIGN PROSTATIC HYPERPLASIA WITHOUT LOW 04/04/2019 PRANAY TORO MD Ot R00. 0 TACHYCARDIA, UNSPECIFIED 04/04/2019 PRANAY TORO MD, Ot T46.4X5A ADVERSE EFFECT OF BUFMCWQJO-[id number]-DHEC 04/04/2019 PRANAY TORO MD Ot Z68. 34 BODY MASS INDEX (BMI) 34.0-34.9, ADULT 04/04/2019 PRANAY TORO MD Ot Z79.899 OTHER CORRECTION (CURRENT) DRUG THERAPY 04/04/2019 PRANAY TORO MD Ot Z87.891 PERSONAL HISTORY OF NICOTINE DEPENDENCE 04/23/2019 MK CRONIN MD Ot K50.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, UNSPECIFIED, WITHOUT CO 04/24/2019 EVON JACKMAN HVAC DESIGN ENGINEER Ot G47.33 OBSTRUCTIVE SLEEP APNEA (ADULT) (PEDIATR 04/24/2019 EVON JACKMAN HVAC DESIGN ENGINEER Ot I48.0 PAROXYSMAL ATRIAL FIBRILLATION 04/24/2019 EVON JACKMAN HVAC DESIGN ENGINEER Ot Z79.01 CORRECTION (CURRENT) USE OF ANTICOAGULANT 06/09/2019 EDWARDS DO, NINA L Ot F32.9 MAJOR DEPRESSIVE DISORDER, SINGLE EPISOD 06/09/2019 EDWARDS DO, NINA L Ot G47.3 3 OBSTRUCTIVE SLEEP APNEA (ADULT) (PEDIATR 06/09/2019 EDWARDS DO, NINA L Ot I10 ESSENTIAL (PRIMARY) HYPERTENSION 06/09/2019 EDWARDS DO, NINA L Ot I48.9 1 UNSPECIFIED ATRIAL FIBRILLATION 06/09/2019 EDWARDS DO, NINA L Ot M25.5 11 PAIN IN RIGHT SHOULDER 06/09/2019 EDWARDS DO, NINA L Ot M79.6 01 PAIN IN RIGHT ARM 06/09/2019 EDWARDS DO, NINA L Ot N40.0 BENIGN PROSTATIC HYPERPLASIA WITHOUT LOW 06/09/2019 EDWARDS DO, NINA L Ot Z85.8 28 PERSONAL HISTORY OF OTHER MALIGNANT NEOP 06/09/2019 EDWARDS DO, NINA L Ot Z87.1 9 PERSONAL HISTORY OF OTHER DISEASES OF TH 06/09/2019 EDWARDS DO, NINA L Ot Z87.4 42 PERSONAL HISTORY OF URINARY CALCULI 06/09/2019 EDWARDS DO, NINA L Ot Z87.8 91 PERSONAL HISTORY OF NICOTINE DEPENDENCE 06/09/2019 EDWARDS DO, NINA L Ot Z88.5 ALLERGY STATUS TO NARCOTIC AGENT STATUS 06/09/2019 EDWARDS DO, NINA L Ot Z88.8 ALLERGY STATUS TO OTH DRUG/MEDS/BIOL SUB 06/09/2019 EDWARDS DO, NINA L Ot Z90.4 9 ACQUIRED ABSENCE OF OTHER SPECIFIED PART 06/09/2019 EDWARDS DO, NINA L Ot Z90.8 9 ACQUIRED ABSENCE OF OTHER ORGANS 07/10/2019 ALIX HARTMAN MD Ot M47.812 SPONDYLOSIS W/O MYELOPATHY OR RADICULOPA 07/10/2019 ALIX HARTMAN MD Ot M50. 30 OTHER CERVICAL DISC DEGENERATION, UNS C 07/15/2019 ALIX HARTMAN MD Ot M47.812 SPONDYLOSIS W/O MYELOPATHY OR RADICULOPA 07/15/2019 ALIX HARTMAN MD Ot M50. 30 OTHER CERVICAL DISC DEGENERATION, UNS C 07/31/2019 ALIX HARTMAN MD Ot M47.812 SPONDYLOSIS W/O MYELOPATHY OR RADICULOPA 07/31/2019 ALIX HARTMAN MD Ot M50. 30 OTHER CERVICAL DISC DEGENERATION, UNS C 08/03/2019 ROSEANNE CHACON, KM Velazquez Ot K50.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, UNSPECIFIED, WITHOUT CO 08/03/2019 MK CRONIN MD Ot K50.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, UNSPECIFIED, WITHOUT CO 08/03/2019 Ot K50.00 BREEDING MANAGER HN'S DISEASE OF SMALL INTESTINE WITHO 08/03/2019 MK CRONIN MD, Ot K50.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, UNSPECIFIED, WITHOUT CO 08/03/2019 JOSEF CHACON FAC, ALI FACP CCDS Ot E87.8 OTH DISORDERS OF ELECTROLYTE AND FLUID B 08/03/2019 JOSEF CHACON FACC, ALI FACP CCDS Ot G47.33 OBSTRUCTIVE SLEEP APNEA (ADULT) (PEDIATR 08/03/2019 JOSEF CHACON FACC, ALI FACP CCDS Ot I48.0 PAROXYSMAL ATRIAL FIBRILLATION 08/03/2019 JOSEF CHACON FACC, ALI FACP CCDS Ot K50.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, UNSPECIFIED, WITHOUT CO 08/03/2019 JOSEF CHACON FACChris, ALI FACP CCDS Ot R06.02 SHORTNESS OF BREATH 08/03/2019 MK CRONIN MD, Ot K50.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, UNSPECIFIED, WITHOUT CO 08/03/2019 MK CRONIN MD Ot I25.10 ATHSCL HEART DISEASE OF [place] CORONARY 08/03/2019 MK CRONIN MD Ot J43.9 EMPHYSEMA, UNSPECIFIED 08/03/2019 MK CRONIN MD Ot M25.551 PAIN IN RIGHT HIP 08/03/2019 MK CRONIN MD Ot R91.8 OTHER NONSPECIFIC ABNORMAL FINDING OF [place] 08/03/2019 MK CRONIN MD Ot Z98.890 OTHER SPECIFIED POSTPROCEDURAL STATES 08/03/2019 MK CRONIN MD Ot 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 30 OTHER CERVICAL DISC DEGENERATION, UNSP C 08/03/2019 TORRES ROBERTSON MD Ot F32. 9 MAJOR DEPRESSIVE DISORDER, SINGLE EPISOD 08/03/2019 TORRES ROBERTSON MD Ot G47. 30 SLEEP APNEA, UNSPECIFIED 08/03/2019 TORRES ROBERTSON MD Ot I10 ESSENTIAL (PRIMARY) HYPERTENSION 08/03/2019 TORRES ROBERTSON MD Ot I48. 91 UNSPECIFIED ATRIAL FIBRILLATION 08/03/2019 TORRES ROBERTSON MD Ot N20. 0 CALCULUS OF KIDNEY 08/03/2019 TORRES ROBERTSON MD Ot R10. 9 UNSPECIFIED ABDOMINAL PAIN 08/03/2019 TORRES ROBERTSON MD Ot Z79. 01 COLD ROLLING COORDINATOR (CURRENT) USE OF ANTICOAGULANT 08/03/2019 TORRES ROBERTSON MD Ot Z82. 49 FAMILY HX OF [place]HE[place] HEART DIS AND OTH DI 08/03/2019 TORRES ROBERTSON MD Ot Z85.828 PERSONAL HISTORY OF OTHER MALIGNANT NEOP 08/03/2019 TORRES ROBERTSON MD Ot Z87. 19 PERSONAL HISTORY OF OTHER DISEASES OF TH 08/03/2019 TORRES ROBERTSON MD Ot Z87.891 PERSONAL HISTORY OF NICOTINE DEPENDENCE 08/03/2019 TORRES ROBERTSON MD Ot Z88. 5 ALLERGY STATUS TO NARCOTIC AGENT STATUS 08/03/2019 TORRES ROBERTSON MD Ot Z88. 8 ALLERGY STATUS TO OTH DRUG/MEDS/BIOL SUB 08/03/2019 TORRES ROBERTSON MD Ot Z90. 49 ACQUIRED ABSENCE OF OTHER SPECIFIED PART 08/03/2019 TORRES ROBERTSON MD Ot Z90. 89 ACQUIRED ABSENCE OF OTHER ORGANS 08/03/2019 TORRES ROBERTSON MD Ot Z99. 89 DEPENDENCE ON OTHER ENABLING MACHINES AN 10/09/2019 SMITHA LANDA MD Ot F32.9 MAJOR DEPRESSIVE DISORDER, SINGLE EPISOD 10/09/2019 SMITHA LANDA MD Ot G47.33 OBSTRUCTIVE SLEEP APNEA (ADULT) (PEDIATR 10/09/2019 SMITHA LANDA MD Ot I1 0 ESSENTIAL (PRIMARY) HYPERTENSION 10/09/2019 SMITHA LANDA MD Ot I48.91 UNSPECIFIED ATRIAL FIBRILLATION 10/09/2019 SMITHA LANDA MD Ot M25.522 PAIN IN LEFT ELBOW 10/09/2019 SMITHA LANDA MD Ot M77.12 LATERAL EPICONDYLITIS, LEFT ELBOW 10/09/2019 SMITHA LANDA MD Ot Z79.01 CORRECTION (CURRENT) USE OF ANTICOAGULANT 10/09/2019 SMITHA LANDA MD Ot Z82.49 FAMILY HX OF ISCHEM HEART DIS AND OTH DI 10/09/2019 SMITHA LANDA MD Ot Z85.828 PERSONAL HISTORY OF OTHER MALIGNANT NEOP 10/09/2019 SMITHA LANDA MD Ot Z87.442 PERSONAL HISTORY OF URINARY CALCULI 10/09/2019 SMITHA LANDA MD Ot Z87.891 PERSONAL HISTORY OF NICOTINE DEPENDENCE 10/09/2019 SMITHA LANDA MD, Ot Z88.5 ALLERGY STATUS TO NARCOTIC AGENT STATUS 10/09/2019 SMITHA LANDA MD, Ot Z88.8 ALLERGY STATUS TO OTH DRUG/MEDS/BIOL SUB 10/09/2019 SMITHA LANDA MD Ot Z90.49 ACQUIRED ABSENCE OF OTHER SPECIFIED PART 10/09/2019 SMITHA LANDA MD Ot Z90.89 ACQUIRED ABSENCE OF OTHER ORGANS 10/09/2019 SMITHA LANDA MD Ot Z99.89 DEPENDENCE ON OTHER ENABLING MACHINES AN 10/09/2019 MK CRONIN MD Ot K50.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, UNSPECIFIED, WITHOUT CO 10/09/2019 MK CRONIN MD Ot K50.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, UNSPECIFIED, WITHOUT CO 10/09/2019 Ot K50.00 BREEDING MANAGER HN'S DISEASE OF SMALL INTESTINE WITHO 10/09/2019 MK CRONIN MD Ot K50.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, UNSPECIFIED, WITHOUT CO 10/09/2019 JOSEF CHACON FACC, ALI FACP CCDS Ot E87.8 OTH DISORDERS OF ELECTROLYTE AND FLUID B 10/09/2019 JOSEF CHACON FACC, ALI FACP CCDS Ot G47.33 OBSTRUCTIVE SLEEP APNEA (ADULT) (PEDIATR 10/09/2019 JOSEF CHACON FACC, ALI FACP CCDS Ot I48.0 PAROXYSMAL ATRIAL FIBRILLATION 10/09/2019 JOSEF CHACON FACC, ALI FACP CCDS Ot K50.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, UNSPECIFIED, WITHOUT CO 10/09/2019 JOSEF CHACON FACC, ALI FACP CCDS Ot R06.02 SHORTNESS OF BREATH 10/09/2019 MK CRONIN MD Ot K50.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, UNSPECIFIED, WITHOUT CO 10/09/2019 MK CRONIN MD Ot I25.10 ATHSCL HEART DISEASE OF [place] CORONARY 10/09/2019 MK CRONIN MD Ot J43.9 EMPHYSEMA, UNSPECIFIED 10/09/2019 MK CRONIN MD Ot M25.551 PAIN IN RIGHT HIP 10/09/2019 MK CRONIN MD Ot R91.8 OTHER NONSPECIFIC ABNORMAL FINDING OF [place] 10/09/2019 MK CRONIN MD Ot Z98.890 OTHER SPECIFIED POSTPROCEDURAL STATES 10/09/2019 MK CRONIN MD Ot 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 30 OTHER CERVICAL DISC DEGENERATION, UNSP C 10/30/2019 VINH HERNANDEZ DO Ot F32. 9 MAJOR DEPRESSIVE DISORDER, SINGLE EPISOD 10/30/2019 VINH HERNANDEZ DO Ot G47. 30 SLEEP APNEA, UNSPECIFIED 10/30/2019 VINH HERNANDEZ DO Ot G89. 18 OTHER ACUTE POSTPROCEDURAL PAIN 10/30/2019 VINH HERNANDEZ DO Ot I10 ESSENTIAL (PRIMARY) HYPERTENSION 10/30/2019 VINH HERNANDEZ DO Ot I48. 91 UNSPECIFIED ATRIAL FIBRILLATION 10/30/2019 VINH HERNANDEZ DO Ot R03. 0 ELEVATED BLOOD-PRESSURE READING, W/O EUSEBIO 10/30/2019 VINH HERNANDEZ DO Ot Z79. 01 COLD ROLLING COORDINATOR (CURRENT) USE OF ANTICOAGULANT 10/30/2019 VINH HERNANDEZ DO Ot Z85.828 PERSONAL HISTORY OF OTHER MALIGNANT NEOP 10/30/2019 VINH HERNANDEZ DO Ot Z87.442 PERSONAL HISTORY OF URINARY CALCULI 10/30/2019 VINH HERNANDEZ DO Ot Z87.891 PERSONAL HISTORY OF NICOTINE DEPENDENCE 10/30/2019 VINH HERNANDEZ DO Ot Z88. 5 ALLERGY STATUS TO NARCOTIC AGENT STATUS 10/30/2019 VINH HERNANDEZ DO Ot Z88. 8 ALLERGY STATUS TO OTH DRUG/MEDS/BIOL SUB 10/30/2019 VINH HERNANDEZ DO Ot Z90. 49 ACQUIRED ABSENCE OF OTHER SPECIFIED PART 10/30/2019 VINH HERNANDEZ DO Ot Z90. 89 ACQUIRED ABSENCE OF OTHER ORGANS 10/30/2019 VINH HERNANDEZ DO Ot Z99. 89 DEPENDENCE ON OTHER ENABLING MACHINES AN 11/01/2019 VINH HERNANDEZ DO Ot F32. 9 MAJOR DEPRESSIVE DISORDER, SINGLE EPISOD 11/01/2019 VINH HERNANDEZ DO Ot G47. 30 SLEEP APNEA, UNSPECIFIED 11/01/2019 VINH HERNANDEZ DO Ot G89. 18 OTHER ACUTE POSTPROCEDURAL PAIN 11/01/2019 VINH HERNANDEZ DO Ot I10 ESSENTIAL (PRIMARY) HYPERTENSION 11/01/2019 VINH HERNANDEZ DO Ot I48. 91 UNSPECIFIED ATRIAL FIBRILLATION 11/01/2019 VINH HERNANDEZ DO Ot R03. 0 ELEVATED BLOOD-PRESSURE READING, W/O EUSEBIO 11/01/2019 VINH HERNANDEZ DO Ot Z79. 01 CORRECTION (CURRENT) USE OF ANTICOAGULANT 11/01/2019 VINH HERNANDEZ DO Ot Z85.828 PERSONAL HISTORY OF OTHER MALIGNANT NEOP 11/01/2019 VINH HERNANDEZ DO Ot Z87.442 PERSONAL HISTORY OF URINARY CALCULI 11/01/2019 VINH HERNANDEZ DO Ot Z87.891 PERSONAL HISTORY OF NICOTINE DEPENDENCE 11/01/2019 VINH HERNANDEZ DO Ot Z88. 5 ALLERGY STATUS TO NARCOTIC AGENT STATUS 11/01/2019 VINH HERNANDEZ DO Ot Z88. 8 ALLERGY STATUS TO OTH DRUG/MEDS/BIOL SUB 11/01/2019 VINH HERNANDEZ DO Ot Z90. 49 ACQUIRED ABSENCE OF OTHER SPECIFIED PART 11/01/2019 VINH HERNANDEZ DO Ot Z90. 89 ACQUIRED ABSENCE OF OTHER ORGANS 11/01/2019 VINH HERNANDEZ DO Ot Z99. 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 9 MAJOR DEPRESSIVE DISORDER, SINGLE EPISOD 11/05/2019 VINH HERNANDEZ DO Ot G47. 30 SLEEP APNEA, UNSPECIFIED 11/05/2019 VINH HERNANDEZ DO Ot G89. 18 OTHER ACUTE POSTPROCEDURAL PAIN 11/05/2019 VINH HERNANDEZ DO Ot I10 ESSENTIAL (PRIMARY) HYPERTENSION 11/05/2019 VINH HERNANDEZ DO Ot I48. 91 UNSPECIFIED ATRIAL FIBRILLATION 11/05/2019 VINH HERNANDEZ DO Ot R03. 0 ELEVATED BLOOD-PRESSURE READING, W/O EUESBIO 11/05/2019 VINH HERNANDEZ DO Ot Z79. 01 COLD ROLLING COORDINATOR (CURRENT) USE OF ANTICOAGULANT 11/05/2019 VINH HERNANDEZ DO Ot Z85.828 PERSONAL HISTORY OF OTHER MALIGNANT NEOP 11/05/2019 VINH HERNANDEZ DO Ot Z87.442 PERSONAL HISTORY OF URINARY CALCULI 11/05/2019 VINH HERNANDEZ DO Ot Z87.891 PERSONAL HISTORY OF NICOTINE DEPENDENCE 11/05/2019 VINH HERNANDEZ DO Ot Z88. 5 ALLERGY STATUS TO NARCOTIC AGENT STATUS 11/05/2019 VINH HERNANDEZ DO Ot Z88. 8 ALLERGY STATUS TO OTH DRUG/MEDS/BIOL SUB 11/05/2019 VINH HERNANDEZ DO Ot Z90. 49 ACQUIRED ABSENCE OF OTHER SPECIFIED PART 11/05/2019 VINH HERNANDEZ DO Ot Z90. 89 ACQUIRED ABSENCE OF OTHER ORGANS 11/05/2019 VINH HERNANDEZ DO Ot Z99. 89 DEPENDENCE ON OTHER ENABLING MACHINES AN Procedures Code Description Performed By Jose L ramires On [id number] RE STORATION OF CARDIAC RHYTHM, SINGLE 11/17/2018 Results Test Result Range Complete blood count (CBC) with automate d white blood cell (WBC) differential - 11/14/18 19:42 Blood leukocytes automated count (number/volume) 10.6 10*3/uL 4.3-11.0 Blood erythrocytes automated count (number/volume) 4.91 10*6/uL 4.35-5.85 Venous blood hemoglobin measurement (mass/volume) 16.0 g/dL 13.3-17.7 Blood hematocrit (volume fraction) 48 % 40-54 Automated erythrocyte mean corpuscular volume 98 [ foz_us] 80-99 Automated erythrocyte mean corpuscular h emoglobin (mass per erythrocyte) 33 pg 25-34 Automated erythrocyte mean corpuscular h emoglobin concentration measurement (mass/volume) 33 g/dL 32-36 Automated erythrocyte distribution width ratio 13. 5 % 10.0- 14.5 Automated blood platelet count [...] 10*3 1.0-4.0 Blood monocytes automated count (number/volume) 0. 8 10*3 0.0-1.0 Automated eosinophil count 0.2 10*3/uL 0 .0-0.3 Automated blood basophil count (count/volume) 0.0 10*3/uL 0.0-0.1 PT panel in platelet poor plasma by coag ulation assay - 11/14/18 19:42 Prothrombin time (PT) in platelet poor plasma by coagu lation assay 12.2 s 12.2-14.7 INR in platelet poor plasma or blood by coagulation as say 0.9 0.8-1.4 Activated partial thromboplastin time (a PTT) in platelet poor plasma bycoagulation assay - 11/14/18 19:42 Activated partial thromboplastin time (a PTT) in platelet poor plasma bycoagulation assay 27 s 24-35 Comprehensive metabolic panel - 11/14/18 19:42 Serum or plasma sodium measurement (moles/volume) 139 mmol/L 135-145 Serum or plasma potassium measurement (moles/volume) 3.9 mmol/L 3.6-5.0 Serum or plasma chloride measurement (moles/volume) 105 mmol/L 98-107 Carbon dioxide 19 mmol/L 21-32 Serum or plasma anion gap determination (moles/volume) 15 mmol/L 5-14 Serum or plasma urea nitrogen measurement (mass/volume ) 10 mg/dL 7-18 Serum or plasma creatinine measurement (mass/volume) 1.13 mg/dL 0.60-1.30 Serum or plasma urea nitrogen/creatinine mass ratio 9 NRG Serum or plasma creatinine measurement w ith calculation of estimated glomerular filtration rate > NRG Serum or plasma glucose measurement (mass/volume) 158 mg/dL 70-105 Serum or plasma calcium measurement (mass/volume) 9.9 mg/dL 8.5-10.1 Serum or plasma total bilirubin measurement (mass/volu me) 0.7 mg/dL 0.1-1.0 Serum or plasma alkaline phosphatase paula surement (enzymatic activity/volume) 59 U/L 40-136 Serum or plasma aspartate aminotransfera se measurement (enzymatic activity/volume) 35 U/L 5-34 Serum or plasma alanine aminotransferase measurement (enzymatic activity/volume) 33 U/L 0-55 Serum or plasma protein measurement (mass/volume) 7.6 g/dL 6.4-8.2 Serum or plasma albumin measurement (mass/volume) 4.2 g/dL 3.2-4.5 CALCIUM CORRECTED 9.7 mg/dL 8.5-10.1 Magnesium - 11/14/18 19:42 Magnesium 1.9 mg/dL 1.8-2.4 Serum or plasma troponin i.cardiac measu rement (mass/volume) - 11/14/18 19:42 Serum or plasma troponin i.cardiac measurement (mass/v olume) < ng/mL <0.028 Myoglobin, serum - 11/14/18 19:42 Myoglobin, serum 83.2 ng/mL 10.0-92.0 Fibrin D-dimer FEU measurement in platel et poor plasma (mass/volume) - 11/14/18 19:42 Fibrin D-dimer FEU measurement in platelet poor plasma (mass/volume) 0.56 ug/mL 0.00-0.49 Serum or plasma amylase measurement (enz ymatic activity/volume) - 11/14/18 19:42 Serum or plasma amylase measurement (enzymatic activit y/volume) 107 U/L 25-125 Lipase - 11/14/18 19:42 Lipase 40 U/L 8-78 Serum or plasma lithium measurement (mol es/volume) - 11/14/18 19:42 BNP level 19.2 pg/mL <100.0 Serum or plasma troponin i.cardiac measu rement (mass/volume) - 11/14/18 21:48 Serum or plasma troponin i.cardiac measurement (mass/v olume) < ng/mL <0.028 Complete blood count (CBC) with automate d white blood cell (WBC) differential - 11/16/18 12:55 Blood leukocytes automated count (number/volume) 26.0 10*3/uL 4.3-11.0 Blood erythrocytes automated count (number/volume) 4.50 10*6/uL 4.35-5.85 Venous blood hemoglobin measurement (mass/volume) 14.3 g/dL 13.3-17.7 Blood hematocrit (volume fraction) 43 % 40-54 Automated erythrocyte mean corpuscular volume 96 [ foz_us] 80-99 Automated erythrocyte mean corpuscular h emoglobin (mass per erythrocyte) 32 pg 25-34 Automated erythrocyte mean corpuscular h emoglobin concentration measurement (mass/volume) 33 g/dL 32-36 Automated erythrocyte distribution width ratio 13. 6 % 10.0- 14.5 Automated blood platelet count [...] 10*3 1.0-4.0 Blood monocytes automated count (number/volume) 1. 4 10*3 0.0-1.0 Automated eosinophil count 0.1 10*3/uL 0 .0-0.3 Automated blood basophil count (count/volume) 0.1 10*3/uL 0.0-0.1 Blood lactic acid measurement (moles/vol ume) - 11/16/18 12:55 Blood lactic acid measurement (moles/volume) 1.92 mmol/L 0.50-2.00 PT panel in platelet poor plasma by coag ulation assay - 11/16/18 12:55 Prothrombin time (PT) in platelet poor plasma by coagu lation assay 14.2 s 12.2-14.7 INR in platelet poor plasma or blood by coagulation as say 1.1 0.8-1.4 Activated partial thromboplastin time (a PTT) in platelet poor plasma bycoagulation assay - 11/16/18 12:55 Activated partial thromboplastin time (a PTT) in platelet poor plasma bycoagulation assay 32 s 24-35 Comprehensive metabolic panel - 11/16/18 12:55 Serum or plasma sodium measurement (moles/volume) 130 mmol/L 135-145 Serum or plasma potassium measurement (moles/volume) 3.5 mmol/L 3.6-5.0 Serum or plasma chloride measurement (moles/volume) 100 mmol/L 98-107 Carbon dioxide 17 mmol/L 21-32 Serum or plasma anion gap determination (moles/volume) 13 mmol/L 5-14 Serum or plasma urea nitrogen measurement (mass/volume ) 24 mg/dL 7-18 Serum or plasma creatinine measurement (mass/volume) 3.12 mg/dL 0.60-1.30 Serum or plasma urea nitrogen/creatinine mass ratio 8 NRG Serum or plasma creatinine measurement w ith calculation of estimated glomerular filtration rate 20 NRG Serum or plasma glucose measurement (mass/volume) 116 mg/dL 70-105 Serum or plasma calcium measurement (mass/volume) 8.5 mg/dL 8.5-10.1 Serum or plasma total bilirubin measurement (mass/volu me) 1.1 mg/dL 0.1-1.0 Serum or plasma alkaline phosphatase paula surement (enzymatic activity/volume) 38 U/L 40-136 Serum or plasma aspartate aminotransfera se measurement (enzymatic activity/volume) 43 U/L 5-34 Serum or plasma alanine aminotransferase measurement (enzymatic activity/volume) 32 U/L 0-55 Serum or plasma protein measurement (mass/volume) 6.9 g/dL 6.4-8.2 Serum or plasma albumin measurement (mass/volume) 3.7 g/dL 3.2-4.5 CALCIUM CORRECTED 8.7 mg/dL 8.5-10.1 Serum or plasma troponin i.cardiac measu rement (mass/volume) - 11/16/18 12:55 Serum or plasma troponin i.cardiac measurement (mass/v olume) < ng/mL <0.028 Blood manual differential performed dete ction - 11/16/18 12:55 Blood monocytes/100 leukocytes 4 [...] 3+ NRG Serum or plasma creatine kinase measurem ent (enzymatic activity/volume) - 11/16/18 12:55 Serum or plasma creatine kinase measurem ent (enzymatic activity/volume) 201 U/L 30-200 Bacterial blood culture - 11/16/18 12:55 QUANTITY OF GROWTH Isolated NRG Bacterial blood culture [id number] NRG Complete urinalysis with reflex to cultu re - 11/16/18 13:20 Urine color determination YELLOW NRG Urine clarity determination SLIGHTLY CLOUDY NRG Urine pH measurement by test strip 5 5-9 Specific gravity of urine by test strip 1.030 1.016-1.022 Urine protein assay by test strip, semi-quantitative 3+ NEGATIVE Urine glucose detection by automated test strip 1+ NEGATIVE Erythrocytes detection in urine sediment by light micr oscopy 4+ NEGATIVE Urine ketones detection by automated test strip 1+ NEGATIVE Urine nitrite detection by test strip POSITIVE NEGATIVE Urine total bilirubin detection by test strip 1+ NEGATIVE Urine urobilinogen measurement by automated test strip (mass/volume) 1 mg/dL NORMAL Urine leukocyte esterase detection by dipstick 1+ NEGATIVE Automated urine sediment erythrocyte cou nt by microscopy (number/high power field) RARE NRG Automated urine sediment leukocyte count by microscopy (number/high power field) [HPF] NRG Bacteria detection in urine sediment by light microsco py MODERATE NRG Squamous epithelial cells detection in u rine sediment by light microscopy RARE NRG Crystals detection in urine sediment by light microsco py PRESENT NRG Casts detection in urine sediment by light microscopy PRESENT NRG Mucus detection in urine sediment by light microscopy NEGATIVE NRG Complete urinalysis with reflex to culture NO NRG Amorphous sediment detection in urine sediment by ligh t microscopy MOD ZUHAIR URATES NRG Hyaline casts detection in urine sediment by light jeff roscopy 10-25 NRG Renal epithelial cells detection in urin e sediment by light microscopy NONE NRG Bacterial urine culture - 11/16/18 13:20 Bacterial urine culture NG NRG Bacterial blood culture - 11/16/18 13:30 Bacterial blood culture NG NRG Methicillin resistant Staphylococcus aur eus (MRSA) screening culture - 11/16/18 21:00 Methicillin resistant Staphylococcus aureus (MRSA) scr eening culture NEG NRG Complete blood count (CBC) with automate d white blood cell (WBC) differential - 11/17/18 03:40 Blood leukocytes automated count (number/volume) 16.2 10*3/uL 4.3-11.0 Blood erythrocytes automated count (number/volume) 3.75 10*6/uL 4.35-5.85 Venous blood hemoglobin measurement (mass/volume) 12.2 g/dL 13.3-17.7 Blood hematocrit (volume fraction) 37 % 40-54 Automated erythrocyte mean corpuscular volume 98 [ foz_us] 80-99 Automated erythrocyte mean corpuscular h emoglobin (mass per erythrocyte) 33 pg 25-34 Automated erythrocyte mean corpuscular h emoglobin concentration measurement (mass/volume) 33 g/dL 32-36 Automated erythrocyte distribution width ratio 13. 7 % 10.0- 14.5 Automated blood platelet count (count/volume) 90 1 0*3/uL 130-400 Automated blood platelet mean volume measurement [...] 10*3 1.0-4.0 Blood monocytes automated count (number/volume) 0. 6 10*3 0.0-1.0 Automated eosinophil count 0.0 10*3/uL 0 .0-0.3 Automated blood basophil count (count/volume) 0.0 10*3/uL 0.0-0.1 Comprehensive metabolic panel - 11/17/18 03:40 Serum or plasma sodium measurement (moles/volume) 137 mmol/L 135-145 Serum or plasma potassium measurement (moles/volume) 2.9 mmol/L 3.6-5.0 Serum or plasma chloride measurement (moles/volume) 113 mmol/L 98-107 Carbon dioxide 14 mmol/L 21-32 Serum or plasma anion gap determination (moles/volume) 10 mmol/L 5-14 Serum or plasma urea nitrogen measurement (mass/volume ) 21 mg/dL 7-18 Serum or plasma creatinine measurement (mass/volume) 1.43 mg/dL 0.60-1.30 Serum or plasma urea nitrogen/creatinine mass ratio 15 NRG Serum or plasma creatinine measurement w ith calculation of estimated glomerular filtration rate 50 NRG Serum or plasma glucose measurement (mass/volume) 117 mg/dL 70-105 Serum or plasma calcium measurement (mass/volume) 7.4 mg/dL 8.5-10.1 Serum or plasma total bilirubin measurement (mass/volu me) 0.7 mg/dL 0.1-1.0 Serum or plasma alkaline phosphatase paula surement (enzymatic activity/volume) 34 U/L 40-136 Serum or plasma aspartate aminotransfera se measurement (enzymatic activity/volume) 32 U/L 5-34 Serum or plasma alanine aminotransferase measurement (enzymatic activity/volume) 25 U/L 0-55 Serum or plasma protein measurement (mass/volume) 5.5 g/dL 6.4-8.2 Serum or plasma albumin measurement (mass/volume) 2.9 g/dL 3.2-4.5 CALCIUM CORRECTED 8.3 mg/dL 8.5-10.1 Serum or plasma phosphate measurement (m ass/volume) - 11/17/18 03:40 Serum or plasma phosphate measurement (mass/volume) 2.5 mg/dL 2.3-4.7 Magnesium - 11/17/18 03:40 Magnesium 1.4 mg/dL 1.8-2.4 Serum or plasma lithium measurement (mol es/volume) - 11/17/18 03:40 BNP level 104.7 pg/mL <100.0 Blood lactic acid measurement (moles/vol ume) - 11/17/18 05:48 Blood lactic acid measurement (moles/volume) 0.76 mmol/L 0.50-2.00 C DIFFICILE AG + TOXIN A/B. - 11/17/18 1 2:10 RESULTS NEGATIVE FOR ANTIGEN AND TOXIN A/B NRG Serum or plasma troponin i.cardiac measu rement (mass/volume) - 11/17/18 12:45 Serum or plasma troponin i.cardiac measurement (mass/v olume) < ng/mL <0.028 Serum or plasma troponin i.cardiac measu rement (mass/volume) - 11/17/18 17:49 Serum or plasma troponin i.cardiac measurement (mass/v olume) < ng/mL <0.028 Serum or plasma troponin i.cardiac measu rement (mass/volume) - 11/17/18 23:59 Serum or plasma troponin i.cardiac measurement (mass/v olume) < ng/mL <0.028 Complete blood count (CBC) with automate d white blood cell (WBC) differential - 11/18/18 03:15 Blood leukocytes automated count (number/volume) 9.0 10*3/uL 4.3-11.0 Blood erythrocytes automated count (number/volume) 3.37 10*6/uL 4.35-5.85 Venous blood hemoglobin measurement (mass/volume) 10.9 g/dL 13.3-17.7 Blood hematocrit (volume fraction) 33 % 40-54 Automated erythrocyte mean corpuscular volume 98 [ foz_us] 80-99 Automated erythrocyte mean corpuscular h emoglobin (mass per erythrocyte) 32 pg 25-34 Automated erythrocyte mean corpuscular h emoglobin concentration measurement (mass/volume) 33 g/dL 32-36 Automated erythrocyte distribution width ratio 13. 9 % 10.0- 14.5 Automated blood platelet count (count/volume) 81 1 0*3/uL 130-400 Automated blood platelet mean volume measurement [...] 10*3 1.0-4.0 Blood monocytes automated count (number/volume) 0. 4 10*3 0.0-1.0 Automated eosinophil count 0.0 10*3/uL 0 .0-0.3 Automated blood basophil count (count/volume) 0.0 10*3/uL 0.0-0.1 Whole blood basic metabolic panel - 11/03 03/21 03:15 Serum or plasma sodium measurement (moles/volume) 139 mmol/L 135-145 Serum or plasma potassium measurement (moles/volume) 3.0 mmol/L 3.6-5.0 Serum or plasma chloride measurement (moles/volume) 114 mmol/L 98-107 Carbon dioxide 17 mmol/L 21-32 Serum or plasma anion gap determination (moles/volume) 8 mmol/L 5-14 Serum or plasma urea nitrogen measurement (mass/volume ) 12 mg/dL 7-18 Serum or plasma creatinine measurement (mass/volume) 0.88 mg/dL 0.60-1.30 Serum or plasma urea nitrogen/creatinine mass ratio 14 NRG Serum or plasma creatinine measurement w ith calculation of estimated glomerular filtration rate > NRG Serum or plasma glucose measurement (mass/volume) 127 mg/dL 70-105 Serum or plasma calcium measurement (mass/volume) 7.5 mg/dL 8.5-10.1 Serum or plasma phosphate measurement (m ass/volume) - 11/18/18 03:15 Serum or plasma phosphate measurement (mass/volume) 2.1 mg/dL 2.3-4.7 Magnesium - 11/18/18 03:15 Magnesium 1.8 mg/dL 1.8-2.4 Vancomycin trough - 11/18/18 07:00 Vancomycin trough 13.7 ug/mL 10.0-20.0 Whole blood basic metabolic panel - 11/03 03/21 11:15 Serum or plasma sodium measurement (moles/volume) 139 mmol/L 135-145 Serum or plasma potassium measurement (moles/volume) 3.1 mmol/L 3.6-5.0 Serum or plasma chloride measurement (moles/volume) 114 mmol/L 98-107 Carbon dioxide 19 mmol/L 21-32 Serum or plasma anion gap determination (moles/volume) 6 mmol/L 5-14 Serum or plasma urea nitrogen measurement (mass/volume ) 11 mg/dL 7-18 Serum or plasma creatinine measurement (mass/volume) 0.79 mg/dL 0.60-1.30 Serum or plasma urea nitrogen/creatinine mass ratio 14 NRG Serum or plasma creatinine measurement w ith calculation of estimated glomerular filtration rate > NRG Serum or plasma glucose measurement (mass/volume) 102 mg/dL 70-105 Serum or plasma calcium measurement (mass/volume) 7.5 mg/dL 8.5-10.1 Complete blood count (CBC) with automate d white blood cell (WBC) differential - 11/19/18 03:40 Blood leukocytes automated count (number/volume) 5.7 10*3/uL 4.3-11.0 Blood erythrocytes automated count (number/volume) 3.20 10*6/uL 4.35-5.85 Venous blood hemoglobin measurement (mass/volume) 10.4 g/dL 13.3-17.7 Blood hematocrit (volume fraction) 31 % 40-54 Automated erythrocyte mean corpuscular volume 98 [ foz_us] 80-99 Automated erythrocyte mean corpuscular h emoglobin (mass per erythrocyte) 33 pg 25-34 Automated erythrocyte mean corpuscular h emoglobin concentration measurement (mass/volume) 33 g/dL 32-36 Automated erythrocyte distribution width ratio 14. 0 % 10.0- 14.5 Automated blood platelet count (count/volume) 73 1 0*3/uL 130-400 Automated blood platelet mean volume measurement [...] 10*3 1.0-4.0 Blood monocytes automated count (number/volume) 0. 4 10*3 0.0-1.0 Automated eosinophil count 0.1 10*3/uL 0 .0-0.3 Automated blood basophil count (count/volume) 0.0 10*3/uL 0.0-0.1 Whole blood basic metabolic panel - 11/03 04/20 03:40 Serum or plasma sodium measurement (moles/volume) 142 mmol/L 135-145 Serum or plasma potassium measurement (moles/volume) 3.2 mmol/L 3.6-5.0 Serum or plasma chloride measurement (moles/volume) 114 mmol/L 98-107 Carbon dioxide 21 mmol/L 21-32 Serum or plasma anion gap determination (moles/volume) 7 mmol/L 5-14 Serum or plasma urea nitrogen measurement (mass/volume ) 12 mg/dL 7-18 Serum or plasma creatinine measurement (mass/volume) 0.76 mg/dL 0.60-1.30 Serum or plasma urea nitrogen/creatinine mass ratio 16 NRG Serum or plasma creatinine measurement w ith calculation of estimated glomerular filtration rate > NRG Serum or plasma glucose measurement (mass/volume) 98 mg/dL 70-105 Serum or plasma calcium measurement (mass/volume) 7.5 mg/dL 8.5-10.1 Serum or plasma phosphate measurement (m ass/volume) - 11/19/18 03:40 Serum or plasma phosphate measurement (mass/volume) 1.5 mg/dL 2.3-4.7 Magnesium - 11/19/18 03:40 Magnesium 1.4 mg/dL 1.8-2.4 Complete blood count (CBC) with automate d white blood cell (WBC) differential - 11/20/18 02:50 Blood leukocytes automated count (number/volume) 4.3 10*3/uL 4.3-11.0 Blood erythrocytes automated count (number/volume) 3.57 10*6/uL 4.35-5.85 Venous blood hemoglobin measurement (mass/volume) 11.5 g/dL 13.3-17.7 Blood hematocrit (volume fraction) 35 % 40-54 Automated erythrocyte mean corpuscular volume 97 [ foz_us] 80-99 Automated erythrocyte mean corpuscular h emoglobin (mass per erythrocyte) 32 pg 25-34 Automated erythrocyte mean corpuscular h emoglobin concentration measurement (mass/volume) 33 g/dL 32-36 Automated erythrocyte distribution width ratio 13. 9 % 10.0- 14.5 Automated blood platelet count (count/volume) 82 1 0*3/uL 130-400 Automated blood platelet mean volume measurement [...] 10*3 1.0-4.0 Blood monocytes automated count (number/volume) 0. 4 10*3 0.0-1.0 Automated eosinophil count 0.1 10*3/uL 0 .0-0.3 Automated blood basophil count (count/volume) 0.0 10*3/uL 0.0-0.1 Whole blood basic metabolic panel - 11/03 05/21 02:50 Serum or plasma sodium measurement (moles/volume) 140 mmol/L 135-145 Serum or plasma potassium measurement (moles/volume) 3.3 mmol/L 3.6-5.0 Serum or plasma chloride measurement (moles/volume) 112 mmol/L 98-107 Carbon dioxide 23 mmol/L 21-32 Serum or plasma anion gap determination (moles/volume) 5 mmol/L 5-14 Serum or plasma urea nitrogen measurement (mass/volume ) 6 mg/dL 7-18 Serum or plasma creatinine measurement (mass/volume) 0.75 mg/dL 0.60-1.30 Serum or plasma urea nitrogen/creatinine mass ratio 8 NRG Serum or plasma creatinine measurement w ith calculation of estimated glomerular filtration rate > NRG Serum or plasma glucose measurement (mass/volume) 86 mg/dL 70-105 Serum or plasma calcium measurement (mass/volume) 7.6 mg/dL 8.5-10.1 Serum or plasma phosphate measurement (m ass/volume) - 11/20/18 02:50 Serum or plasma phosphate measurement (mass/volume) 1.6 mg/dL 2.3-4.7 Magnesium - 11/20/18 02:50 Magnesium 1.8 mg/dL 1.8-2.4 Complete blood count (CBC) with automate d white blood cell (WBC) differential - 11/21/18 05:24 Blood leukocytes automated count (number/volume) 4.0 10*3/uL 4.3-11.0 Blood erythrocytes automated count (number/volume) 3.62 10*6/uL 4.35-5.85 Venous blood hemoglobin measurement (mass/volume) 11.9 g/dL 13.3-17.7 Blood hematocrit (volume fraction) 35 % 40-54 Automated erythrocyte mean corpuscular volume 98 [ foz_us] 80-99 Automated erythrocyte mean corpuscular h emoglobin (mass per erythrocyte) 33 pg 25-34 Automated erythrocyte mean corpuscular h emoglobin concentration measurement (mass/volume) 34 g/dL 32-36 Automated erythrocyte distribution width ratio 13. 7 % 10.0- 14.5 Automated blood platelet count (count/volume) 99 1 0*3/uL 130-400 Automated blood platelet mean volume measurement [...] 10*3 1.0-4.0 Blood monocytes automated count (number/volume) 0. 7 10*3 0.0-1.0 Automated eosinophil count 0.2 10*3/uL 0 .0-0.3 Automated blood basophil count (count/volume) 0.0 10*3/uL 0.0-0.1 Whole blood basic metabolic panel - 11/03 06/21 05:24 Serum or plasma sodium measurement (moles/volume) 143 mmol/L 135-145 Serum or plasma potassium measurement (moles/volume) 4.0 mmol/L 3.6-5.0 Serum or plasma chloride measurement (moles/volume) 111 mmol/L 98-107 Carbon dioxide 25 mmol/L 21-32 Serum or plasma anion gap determination (moles/volume) 7 mmol/L 5-14 Serum or plasma urea nitrogen measurement (mass/volume ) 7 mg/dL 7-18 Serum or plasma creatinine measurement (mass/volume) 0.79 mg/dL 0.60-1.30 Serum or plasma urea nitrogen/creatinine mass ratio 9 NRG Serum or plasma creatinine measurement w ith calculation of estimated glomerular filtration rate > NRG Serum or plasma glucose measurement (mass/volume) 104 mg/dL 70-105 Serum or plasma calcium measurement (mass/volume) 8.3 mg/dL 8.5-10.1 Serum or plasma phosphate measurement (m ass/volume) - 11/21/18 05:24 Serum or plasma phosphate measurement (mass/volume) 2.2 mg/dL 2.3-4.7 Magnesium - 11/21/18 05:24 Magnesium 1.4 mg/dL 1.8-2.4 Complete blood count (CBC) with automate d white blood cell (WBC) differential - 11/22/18 04:15 Blood leukocytes automated count (number/volume) 5.8 10*3/uL 4.3-11.0 Blood erythrocytes automated count (number/volume) 3.83 10*6/uL 4.35-5.85 Venous blood hemoglobin measurement (mass/volume) 12.3 g/dL 13.3-17.7 Blood hematocrit (volume fraction) 38 % 40-54 Automated erythrocyte mean corpuscular volume 98 [ foz_us] 80-99 Automated erythrocyte mean corpuscular h emoglobin (mass per erythrocyte) 32 pg 25-34 Automated erythrocyte mean corpuscular h emoglobin concentration measurement (mass/volume) 33 g/dL 32-36 Automated erythrocyte distribution width ratio 13. 9 % 10.0- 14.5 Automated blood platelet count [...] 10*3 1.0-4.0 Blood monocytes automated count (number/volume) 0. 7 10*3 0.0-1.0 Automated eosinophil count 0.2 10*3/uL 0 .0-0.3 Automated blood basophil count (count/volume) 0.1 10*3/uL 0.0-0.1 Whole blood basic metabolic panel - 11/04 04:15 Serum or plasma sodium measurement (moles/volume) 141 mmol/L 135-145 Serum or plasma potassium measurement (moles/volume) 4.3 mmol/L 3.6-5.0 Serum or plasma chloride measurement (moles/volume) 109 mmol/L 98-107 Carbon dioxide 26 mmol/L 21-32 Serum or plasma anion gap determination (moles/volume) 6 mmol/L 5-14 Serum or plasma urea nitrogen measurement (mass/volume ) 9 mg/dL 7-18 Serum or plasma creatinine measurement (mass/volume) 0.80 mg/dL 0.60-1.30 Serum or plasma urea nitrogen/creatinine mass ratio 11 NRG Serum or plasma creatinine measurement w ith calculation of estimated glomerular filtration rate > NRG Serum or plasma glucose measurement (mass/volume) 85 mg/dL 70-105 Serum or plasma calcium measurement (mass/volume) 8.4 mg/dL 8.5-10.1 Serum or plasma phosphate measurement (m ass/volume) - 11/22/18 04:15 Serum or plasma phosphate [...] 5-14 Serum or plasma urea nitrogen measurement (mass/volume ) 10 mg/dL 7-18 Serum or plasma creatinine measurement (mass/volume) 0.96 mg/dL 0.60-1.30 Serum or plasma urea nitrogen/creatinine mass ratio 10 NRG Serum or plasma creatinine measurement w ith calculation of estimated glomerular filtration rate > NRG Serum or plasma glucose measurement (mass/volume) 162 mg/dL 70-105 Serum or plasma calcium measurement (mass/volume) 9.0 mg/dL 8.5-10.1 Serum or plasma total bilirubin measurement (mass/volu me) 0.5 mg/dL 0.1-1.0 Serum or plasma alkaline phosphatase paula surement (enzymatic activity/volume) 81 U/L 40-136 Serum or plasma aspartate aminotransfera se measurement (enzymatic activity/volume) 30 U/L 5-34 Serum or plasma alanine aminotransferase measurement (enzymatic activity/volume) 22 U/L 0-55 Serum or plasma protein measurement (mass/volume) 7.3 g/dL 6.4-8.2 Serum or plasma albumin measurement (mass/volume) 4.0 g/dL 3.2-4.5 CALCIUM CORRECTED 9.0 mg/dL 8.5-10.1 Complete blood count (CBC) with automate d white blood cell (WBC) differential - 12/05/18 09:13 Blood leukocytes automated count (number/volume) 6.6 10*3/uL 4.3-11.0 Blood erythrocytes automated count (number/volume) 4.35 10*6/uL 4.35-5.85 Venous blood hemoglobin measurement (mass/volume) 14.2 g/dL 13.3-17.7 Blood hematocrit (volume fraction) 43 % 40-54 Automated erythrocyte mean corpuscular volume 100 [foz_us] 80-99 Automated erythrocyte mean corpuscular h emoglobin (mass per erythrocyte) 33 pg 25-34 Automated erythrocyte mean corpuscular h emoglobin concentration measurement (mass/volume) 33 g/dL 32-36 Automated erythrocyte distribution width ratio 14. 6 % 10.0- 14.5 Automated blood platelet count [...] 10*3 1.0-4.0 Blood monocytes automated count (number/volume) 1. 2 10*3 0.0-1.0 Automated eosinophil count 0.2 10*3/uL 0 .0-0.3 Automated blood basophil count (count/volume) 0.1 10*3/uL 0.0-0.1 Blood manual differential performed dete ction - 12/05/18 09:13 Blood monocytes/100 leukocytes 23 % NRG Manual blood segmented neutrophils/100 leukocytes 55 % NRG Blood band neutrophils/100 leukocytes 2 % NRG Manual blood lymphocytes/100 leukocytes 17 % NRG Manual eosinophils/100 leukocytes in nose 3 % NRG Blood erythrocyte morphology finding identification NORMAL NRG Lipase - 12/05/18 09:13 Lipase 53 U/L 8-78 Complete urinalysis with reflex to cultu re - 12/05/18 11:17 Urine color determination YELLOW NRG Urine clarity determination CLEAR NR G Urine pH measurement by test strip 7 5-9 Specific gravity of urine by test strip <= 1.016-1.022 Urine protein assay by test strip, semi-quantitative NEGATIVE NEGATIVE Urine glucose detection by automated test strip NE GATIVE NEGATIVE Erythrocytes detection in urine sediment by light micr oscopy TRACE-I NEGATIVE Urine ketones detection by automated test strip NE GATIVE NEGATIVE Urine nitrite detection by test strip NEGATIVE NEGATIVE Urine total bilirubin detection by test strip NEGA TIVE NEGATIVE Urine urobilinogen measurement by automated test strip (mass/volume) 0.2 mg/dL NORMAL Urine leukocyte esterase detection by dipstick NEG ATIVE NEGATIVE Automated urine sediment erythrocyte cou nt by microscopy (number/high power field) NONE NRG Automated urine sediment leukocyte count by microscopy (number/high power field) NONE NRG Bacteria detection in urine sediment by light microsco py NEGATIVE NRG Squamous epithelial cells detection in u rine sediment by light microscopy RARE NRG Crystals detection in urine sediment by light microsco py NONE NRG Casts detection in urine sediment by light microscopy NONE NRG Mucus detection in urine sediment by light microscopy NEGATIVE NRG Complete urinalysis with reflex to culture NO NRG Whole blood basic metabolic panel - 12/02 11:40 Serum or plasma sodium measurement (moles/volume) 135 mmol/L 135-145 Serum or plasma potassium measurement (moles/volume) 4.4 mmol/L 3.6-5.0 Serum or plasma chloride measurement (moles/volume) 98 mmol/L 98-107 Carbon dioxide 22 mmol/L 21-32 Serum or plasma anion gap determination (moles/volume) 15 mmol/L 5-14 Serum or plasma urea nitrogen measurement (mass/volume ) 19 mg/dL 7-18 Serum or plasma creatinine measurement (mass/volume) 0.87 mg/dL 0.60-1.30 Serum or plasma urea nitrogen/creatinine mass ratio 22 NRG Serum or plasma creatinine measurement w ith calculation of estimated glomerular filtration rate > NRG Serum or plasma glucose measurement (mass/volume) 184 mg/dL 70-105 Serum or plasma calcium measurement (mass/volume) 9.0 mg/dL 8.5-10.1 Magnesium - 12/20/18 11:40 Magnesium 1.9 mg/dL 1.8-2.4 Automated blood complete blood count (he mogram) panel - 01/30/19 12:08 Blood leukocytes automated count (number/volume) 6.3 10*3/uL 4.3-11.0 Blood erythrocytes automated count (number/volume) 3.98 10*6/uL 4.35-5.85 Venous blood hemoglobin measurement (mass/volume) 13.9 g/dL 13.3-17.7 Blood hematocrit (volume fraction) 42 % 40-54 Automated erythrocyte mean corpuscular volume 105 [foz_us] 80-99 Automated erythrocyte mean corpuscular h emoglobin (mass per erythrocyte) 35 pg 25-34 Automated erythrocyte mean corpuscular h emoglobin concentration measurement (mass/volume) 33 g/dL 32-36 Automated erythrocyte distribution width ratio 15. 6 % 10.0- 14.5 Automated blood platelet count (count/volume) 131 10*3/uL 130-400 Automated blood platelet mean volume measurement 11.7 [foz_us] 7.4-10.4 PT panel in platelet poor plasma by coag ulation assay - 01/30/19 12:08 Prothrombin time (PT) in platelet poor plasma by coagu lation assay 13.5 s 12.2-14.7 INR in platelet poor plasma or blood by coagulation as say 1.0 0.8-1.4 Activated partial thromboplastin time (a PTT) in platelet poor plasma bycoagulation assay - 01/30/19 12:08 Activated partial thromboplastin time (a PTT) in platelet poor plasma bycoagulation assay 32 s 24-35 Comprehensive metabolic panel - 01/30/19 12:08 Serum or plasma sodium measurement (moles/volume) 144 mmol/L 135-145 Serum or plasma potassium measurement (moles/volume) 3.7 mmol/L 3.6-5.0 Serum or plasma chloride measurement (moles/volume) 109 mmol/L 98-107 Carbon dioxide 23 mmol/L 21-32 Serum or plasma anion gap determination (moles/volume) 12 mmol/L 5-14 Serum or plasma urea nitrogen measurement (mass/volume ) 12 mg/dL 7-18 Serum or plasma creatinine measurement (mass/volume) 0.89 mg/dL 0.60-1.30 Serum or plasma urea nitrogen/creatinine mass ratio 13 NRG Serum or plasma creatinine measurement w ith calculation of estimated glomerular filtration rate > NRG Serum or plasma glucose measurement (mass/volume) 102 mg/dL 70-105 Serum or plasma calcium measurement (mass/volume) 9.3 mg/dL 8.5-10.1 Serum or plasma total bilirubin measurement (mass/volu me) 1.0 mg/dL 0.1-1.0 Serum or plasma alkaline phosphatase paula surement (enzymatic activity/volume) 65 U/L 40-136 Serum or plasma aspartate aminotransfera se measurement (enzymatic activity/volume) 31 U/L 5-34 Serum [...] in HDL measurement (mass/v olume) 48 mg/dL 40-60 Cholesterol in LDL [mass/volume] in serum or plasma by direct assay 71 mg/dL 1-129 Serum or plasma cholesterol in VLDL measurement (mass/ volume) 32 mg/dL 5-40 Methicillin resistant Staphylococcus aur eus (MRSA) screening culture - 01/30/19 12:08 Methicillin resistant Staphylococcus aureus (MRSA) scr eening culture NEG NRG Complete blood count (CBC) with automate d white blood cell (WBC) differential - 04/03/19 09:52 Blood leukocytes automated count (number/volume) 5.2 10*3/uL 4.3-11.0 Blood erythrocytes automated count (number/volume) 4.28 10*6/uL 4.35-5.85 Venous blood hemoglobin measurement (mass/volume) 14.8 g/dL 13.3-17.7 Blood hematocrit (volume fraction) 45 % 40-54 Automated erythrocyte mean corpuscular volume 106 [foz_us] 80-99 Automated erythrocyte mean corpuscular h emoglobin (mass per erythrocyte) 35 pg 25-34 Automated erythrocyte mean corpuscular h emoglobin concentration measurement (mass/volume) 33 g/dL 32-36 Automated erythrocyte distribution width ratio 14. 7 % 10.0- 14.5 Automated blood platelet count [...] 10*3 1.0-4.0 Blood monocytes automated count (number/volume) 0. 5 10*3 0.0-1.0 Automated eosinophil count 0.2 10*3/uL 0 .0-0.3 Automated blood basophil count (count/volume) 0.0 10*3/uL 0.0-0.1 PT panel in platelet poor plasma by coag ulation assay - 04/03/19 09:52 Prothrombin time (PT) in platelet poor plasma by coagu lation assay 13.5 s 12.2-14.7 INR in platelet poor plasma or blood by coagulation as say 1.0 0.8-1.4 Activated partial thromboplastin time (a PTT) in platelet poor plasma bycoagulation assay - 04/03/19 09:52 Activated partial thromboplastin time (a PTT) in platelet poor plasma bycoagulation assay 30 s 24-35 Comprehensive metabolic panel - 04/03/19 09:52 Serum or plasma sodium measurement (moles/volume) 139 mmol/L 135-145 Serum or plasma potassium measurement (moles/volume) 3.7 mmol/L 3.6-5.0 Serum or plasma chloride measurement (moles/volume) 99 mmol/L 98-107 Carbon dioxide 27 mmol/L 21-32 Serum or plasma anion gap determination (moles/volume) 13 mmol/L 5-14 Serum or plasma urea nitrogen measurement (mass/volume ) 14 mg/dL 7-18 Serum or plasma creatinine measurement (mass/volume) 1.01 mg/dL 0.60-1.30 Serum or plasma urea nitrogen/creatinine mass ratio 14 NRG Serum or plasma creatinine measurement w ith calculation of estimated glomerular filtration rate > NRG Serum or plasma glucose measurement (mass/volume) 174 mg/dL 70-105 Serum or plasma calcium measurement (mass/volume) 9.3 mg/dL 8.5-10.1 Serum or plasma total bilirubin measurement (mass/volu me) 0.7 mg/dL 0.1-1.0 Serum or plasma alkaline phosphatase paula surement (enzymatic activity/volume) 100 U/L 40-136 Serum or plasma aspartate aminotransfera se measurement (enzymatic activity/volume) 36 U/L 5-34 Serum or plasma alanine aminotransferase measurement (enzymatic activity/volume) 21 U/L 0-55 Serum or plasma protein measurement (mass/volume) 7.2 g/dL 6.4-8.2 Serum or plasma albumin measurement (mass/volume) 4.0 g/dL 3.2-4.5 CALCIUM CORRECTED 9.3 mg/dL 8.5-10.1 Magnesium - 04/03/19 09:52 Magnesium 1.7 mg/dL 1.8-2.4 Serum or plasma troponin i.cardiac measu rement (mass/volume) - 04/03/19 09:52 Serum or plasma troponin i.cardiac measurement (mass/v olume) < ng/mL <0.30 PROBNP FS - 04/03/19 09:52 PROBNP FS 54.0 pg/mL <75.0 THYROID STIMULATING HORMONE - 04/03/19 0 9:52 THYROID STIMULATING HORMONE 0.42 u[iU]/mL 0.35-4.94 Complete urinalysis with reflex to cultu re - 04/03/19 10:22 Urine color determination YELLOW NRG Urine clarity determination CLEAR NR G Urine pH measurement by test strip 6.0 5-9 Specific gravity of urine by test strip 1.020 1.016-1.022 Urine protein assay by test strip, semi-quantitative NEGATIVE NEGATIVE Urine glucose detection by automated test strip NE GATIVE NEGATIVE Erythrocytes detection in urine sediment by light micr oscopy TRACE NEGATIVE Urine ketones detection by automated test strip NE GATIVE NEGATIVE Urine nitrite detection by test strip NEGATIVE NEGATIVE Urine total bilirubin detection by test strip NEGA TIVE NEGATIVE Urine urobilinogen measurement by automated test strip (mass/volume) 0.2 mg/dL NORMAL Urine leukocyte esterase detection by dipstick NEG ATIVE NEGATIVE Automated urine sediment erythrocyte cou nt by microscopy (number/high power field) [HPF] NRG Automated urine sediment leukocyte count by microscopy (number/high power field) RARE NRG Bacteria detection in urine sediment by light microsco py NEGATIVE NRG Squamous epithelial cells detection in u rine sediment by light microscopy 0-2 NRG Crystals detection in urine sediment by light microsco py NONE NRG Casts detection in urine sediment by light microscopy NONE NRG Mucus detection in urine sediment by light microscopy NEGATIVE NRG Complete urinalysis with reflex to culture NO NRG Complete blood count (CBC) with automate d white blood cell (WBC) differential - 06/09/19 18:26 Blood leukocytes automated count (number/volume) 7.6 10*3/uL 4.3-11.0 Blood erythrocytes automated count (number/volume) 4.03 10*6/uL 4.35-5.85 Venous blood hemoglobin measurement (mass/volume) 14.4 g/dL 13.3-17.7 Blood hematocrit (volume fraction) 44 % 40-54 Automated erythrocyte mean corpuscular volume 109 [foz_us] 80-99 Automated erythrocyte mean corpuscular h emoglobin (mass per erythrocyte) 36 pg 25-34 Automated erythrocyte mean corpuscular h emoglobin concentration measurement (mass/volume) 33 g/dL 32-36 Automated erythrocyte distribution width ratio 15. 9 % 10.0- 14.5 Automated blood platelet count (count/volume) 103 10*3/uL 130-400 Automated blood platelet mean volume measurement 11.7 [foz_us] 7.4-10.4 Automated blood neutrophils/100 leukocytes 61 % 42-75 Automated blood lymphocytes/100 leukocytes 22 % 12-44 Blood monocytes/100 leukocytes 13 % 0-12 Automated blood eosinophils/100 leukocytes 4 % 0-10 Automated blood basophils/100 leukocytes 0 % 0-10 Blood neutrophils automated count (number/volume) 4.6 10*3 1.8-7.8 Blood lymphocytes automated count (number/volume) 1.7 10*3 1.0-4.0 Blood monocytes automated count (number/volume) 1. 0 10*3 0.0-1.0 Automated eosinophil count 0.3 10*3/uL 0 .0-0.3 Automated blood basophil count (count/volume) 0.0 10*3/uL 0.0-0.1 Fibrin D-dimer FEU measurement in platel et poor plasma (mass/volume) - 06/09/19 18:26 Fibrin D-dimer FEU measurement in platelet poor plasma (mass/volume) 0.33 ug/mL 0.00-0.49 Whole blood basic metabolic panel - 04/20 18:26 Serum or plasma sodium measurement (moles/volume) 143 mmol/L 135-145 Serum or plasma potassium measurement (moles/volume) 4.0 mmol/L 3.6-5.0 Serum or plasma chloride measurement (moles/volume) 106 mmol/L 98-107 Carbon dioxide 24 mmol/L 21-32 Serum or plasma anion gap determination (moles/volume) 13 mmol/L 5-14 Serum or plasma urea nitrogen measurement (mass/volume ) 14 mg/dL 7-18 Serum or plasma creatinine measurement (mass/volume) 0.99 mg/dL 0.60-1.30 Serum or plasma urea nitrogen/creatinine mass ratio 14 NRG Serum or plasma creatinine measurement w ith calculation of estimated glomerular filtration rate > NRG Serum or plasma glucose measurement (mass/volume) 149 mg/dL 70-105 Serum or plasma calcium measurement (mass/volume) 8.8 mg/dL 8.5-10.1 Serum or plasma troponin i.cardiac measu rement (mass/volume) - 06/09/19 18:26 Serum or plasma troponin i.cardiac measurement (mass/v olume) < ng/mL <0.30 Serum or plasma C reactive protein measu rement (mass/volume) - 06/09/19 18:26 Serum or plasma C reactive protein measurement (mass/v olume) 0.36 mg/dL 0.00-0.50 Complete urinalysis with reflex to cultu re - 08/03/19 12:10 Urine color determination YELLOW NRG Urine clarity determination CLEAR NR G Urine pH measurement by test strip 6.5 5-9 Specific gravity of urine by test strip 1.020 1.016-1.022 Urine protein assay by test strip, semi-quantitative NEGATIVE NEGATIVE Urine glucose detection by automated test strip NE GATIVE NEGATIVE Erythrocytes detection in urine sediment by light micr oscopy 3+ NEGATIVE Urine ketones detection by automated test strip NE GATIVE NEGATIVE Urine nitrite detection by test strip NEGATIVE NEGATIVE Urine total bilirubin detection by test strip NEGA TIVE NEGATIVE Urine urobilinogen measurement by automated test strip (mass/volume) 0.2 mg/dL NORMAL Urine leukocyte esterase detection by dipstick NEG ATIVE NEGATIVE Automated urine sediment erythrocyte cou nt by microscopy (number/high power field) [HPF] NRG Automated urine sediment leukocyte count by microscopy (number/high power field) NONE NRG Bacteria detection in urine sediment by light microsco py NONE NRG Squamous epithelial cells detection in u rine sediment by light microscopy RARE NRG Crystals detection in urine sediment by light microsco py PRESENT NRG Casts detection in urine sediment by light microscopy NONE NRG Mucus detection in urine sediment by light microscopy NEGATIVE NRG Complete urinalysis with reflex to culture NO NRG Calcium oxalate crystals detection in ur ine sediment by light microscopy RARE NRG Complete blood count (CBC) with automate d white blood cell (WBC) differential - 08/03/19 12:15 Blood leukocytes automated count (number/volume) 5.9 10*3/uL 4.3-11.0 Blood erythrocytes automated count (number/volume) 3.86 10*6/uL 4.35-5.85 Venous blood hemoglobin measurement (mass/volume) 14.0 g/dL 13.3-17.7 Blood hematocrit (volume fraction) 42 % 40-54 Automated erythrocyte mean corpuscular volume 109 [foz_us] 80-99 Automated erythrocyte mean corpuscular h emoglobin (mass per erythrocyte) 36 pg 25-34 Automated erythrocyte mean corpuscular h emoglobin concentration measurement (mass/volume) 33 g/dL 32-36 Automated erythrocyte distribution width ratio 15. 0 % 10.0- 14.5 Automated blood platelet count (count/volume) 131 10*3/uL 130-400 Automated blood platelet mean volume measurement 11.8 [foz_us] 7.4-10.4 Automated blood neutrophils/100 leukocytes 52 % 42-75 Automated blood lymphocytes/100 leukocytes 33 % 12-44 Blood monocytes/100 leukocytes 11 % 0-12 Automated blood eosinophils/100 leukocytes 3 % 0-10 Automated blood basophils/100 leukocytes 1 % 0-10 Blood neutrophils automated count (number/volume) 3.1 10*3 1.8-7.8 Blood lymphocytes automated count (number/volume) 2.0 10*3 1.0-4.0 Blood monocytes automated count (number/volume) 0. 6 10*3 0.0-1.0 Automated eosinophil count 0.2 10*3/uL 0 .0-0.3 Automated blood basophil count (count/volume) 0.0 10*3/uL 0.0-0.1 Comprehensive metabolic panel - 08/03/19 12:15 Serum or plasma sodium measurement (moles/volume) 143 mmol/L 135-145 Serum or plasma potassium measurement (moles/volume) 4.3 mmol/L 3.6-5.0 Serum or plasma chloride measurement (moles/volume) 106 mmol/L 98-107 Carbon dioxide 25 mmol/L 21-32 Serum or plasma anion gap determination (moles/volume) 12 mmol/L 5-14 Serum or plasma urea nitrogen measurement (mass/volume ) 13 mg/dL 7-18 Serum or plasma creatinine measurement (mass/volume) 0.96 mg/dL 0.60-1.30 Serum or plasma urea nitrogen/creatinine mass ratio 14 NRG Serum or plasma creatinine measurement w ith calculation of estimated glomerular filtration rate > NRG Serum or plasma glucose measurement (mass/volume) 136 mg/dL 70-105 Serum or plasma calcium measurement (mass/volume) 8.9 mg/dL 8.5-10.1 Serum or plasma total bilirubin measurement (mass/volu me) 0.6 mg/dL 0.1-1.0 Serum or plasma alkaline phosphatase paula surement (enzymatic activity/volume) 113 U/L 40-136 Serum or plasma aspartate aminotransfera se measurement (enzymatic activity/volume) 27 U/L 5-34 Serum or plasma alanine aminotransferase measurement (enzymatic activity/volume) 20 U/L 0-55 Serum or plasma protein measurement (mass/volume) 6.8 g/dL 6.4-8.2 Serum or plasma albumin measurement (mass/volume) 4.1 g/dL 3.2-4.5 CALCIUM CORRECTED 8.8 mg/dL 8.5-10.1 Encounters ACCT No. Visit Date/Time Discharge Status Pt. Type Provider Facility Loc./Unit Complaint [id number] 10/30/2019 15:39:00 020 16:45:00 DIS Emergency VINH HERNANDEZ DO [facility] ER FS BLOOD PRESSURE HIGH [id number] 10/09/2019 10:33:00 11:45:00 DIS Emergency SMITHA LANDA MD [facility] ER FS LT ARM PAIN [id number] 08/03/2019 11:53:00 13:50:00 DIS Emergency TORRES ROBERTSON MD [facility] ER FS RT FLANK/ABD PAIN [id number] 07/09/2019 09:14:00 23:59:59 CLS Outpatient DEVAN CHACON, ALIX Carroll [facility] ORTHO [id number] 06/19/2019 14:00:00 14:00:00 CAN Preadmit MK CRONIN MD [facility] RAD ACUTE PAIN IN RIGHT JULIO CESAR ULDER [id number] 06/09/2019 18:10:00 19:48:00 DIS Emergency GRACE LY NINA L [facility] ER FS RT ARM PAIN [id number] 04/30/2019 10:00:00 23:59:59 CLS Preadmit MK CRONIN MD [facility] CROHNS DISEASE [id number] 2019 10:01:00 23:59:59 CLS Outpatient EVON JACKMAN [facility] LAB I48.0 [id number] 04/03/2019 12:45:00 10:34:00 DIS Inpatient PRANAY TORO MD [facility] 4TH PALPS PAF [id number] 03/19/2019 09:34:00 23:59:59 CLS Outpatient MK CRONIN MD [facility] CROHNS DISEASE [id number] 02/27/2019 08:10:00 23:59:59 CLS Outpatient MK CRONIN MD [facility] RAD FS CHEST WALL PAIN [id number] 02/05/2019 09:15:00 23:59:59 CLS Outpatient MK CRONIN MD [facility] CR[place]NS DISEASE [id number] 01/30/2019 11:50:00 18:45:00 DIS Outpatient JOSEF CHACON FACC, ALEX WEINSTEIN CC DS [facility] CATH CHEST PAIN, PAF,SOB [id number] 01/02/2019 07:46:00 23:59:59 CLS Outpatient JOSEF CHACON FACC, ALEX WEINSTEIN CC DS [facility] CARD PAF [id number] 12/25/2018 09:39:00 23:59:59 CLS Outpatient ROSEANNE CHACON, MK murphy [facility] CROHNS DISEASE [id number] 12/05/2018 08:41:00 11:54:00 DIS Emergency LAURA ANTOINE MD [facility] ER FS CHEST PAIN; ABD PAIN [id number] 11/16/2018 16:30:00 13:26:00 DIS Inpatient CORTEZ CHACON, PRANAY Velazquez [facility] 4TH UTI,SMALL BOWEL OBSTRUC TION,SEVERE SEPSIS [id number] 11/14/2018 18:51:00 00:46:00 DIS Emergency LUIZA JUÁREZ [facility] ER CHEST PAINS [id number] 11/13/2018 09:40:00 23:59:59 CLS Outpatient MK CRONIN MD [facility] CROHNS DISEASE [id number] 12/20/2018 12:12:00 Document Registration
[2019-12-22] MEDS ORDERED: NS IV 1000 ML 1,000 ML ONE (11:18)
[2019-12-22] MEDS ORDERED: NS IV 1000 ML 1,000 ML IV STA (11:18)
--- NOTE | 2019-12-22 11:23 | ED Abdominal Pain ---
General Chief Complaint: Abdominal/GI Problems Stated Complaint: LOWER BACK PAIN,BLOODY URINE History of Present Illness Date Seen by Provider: Dec 22, 2019 Time Seen by Provider: 11:15 Initial Comments This patient is a 64-year-old male that presents to the emerged from her left flank pain radiating to left groin. And hematuria. Patient states his long history of kidney stones in the past last kidney stone was 10 years ago. Patient states he is passing pretty frequently but hasn't had any issues for some time but he states this feels just like a kidney stone. Patient states he has gross hematuria today and continued flank pain on the left. 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 fib and has never had any bleeding issues. We'll do medical evaluation treatment is needed. Timing/Duration: 12 Hours Severity/Quality: Mild Location: Flank Radiation: Groin Associated Symptoms: No Denies Symptoms; Back Pain; No Chest Pain, No Diaphoresis, No Fever/Chills, No Fatigue, No Headache, No Heartburn, No Nausea /Vomiting, No Rash, No Shortness of Air, No Swelling/Mass in Abdomen, No Syncope, No Weakness, No Other Allergies and Home Medications Allergies Coded Allergies: morphine (Unverified Allergy, Severe, HEART STOPPED, 11/17/18) hydromorphone HCl (Unverified Allergy, Unknown, HIVES, 11/14/18) oxycodone (Unverified Allergy, Unknown, HIVES, 11/14/18) infliximab-dyyb (Unverified Adverse Reaction, Severe, ATRIAL FIB, 12/05/18) PT WENT INTO A FIB WHILE RECEIVING INFUSION meperidine HCl (Unverified Adverse Reaction, Mild, N/V, 11/17/18) Home Medications Apixaban 5 Mg Tablet, 5 MG PO BID Prescribed by: PRANAY TORO on 04/04/19 1021 Azathioprine 50 Mg Tablet, 100 MG PO HS, (Reported) TAKES 2 (50MG) TABLETS Azathioprine 50 Mg Tablet, 150 MG PO DAILY, (Reported) TAKES 3 (50MG) TABLETS Cholestyramine 5 Gm Powder, 4 GM PO BID PRN for DIARRHEA, (Reported) Cyanocobalamin 1,000 Mcg/Ml Inj, 1,000 MCG IM MONTHLY, (Reported) Diphenoxylate HCl/Atropine 1 Each Tablet, 2 TAB PO QID PRN for DIARRHEA, ( Reported) Doxazosin Mesylate 1 Mg Tablet, 1 MG PO BID PRN for BLOOD PRESSURE, (Reported) USE IF SYSTOLIC BP IS <180 Ergocalciferol (Vitamin D2) 50,000 Unit Capsule, 50,000 UNIT PO Mo, (Reported) Fish Oil/Dha/Epa 1 Each Capsule, 1,200 MG PO DAILY, (Reported) Folic Acid 0.4 Mg Tablet, 0.4 MG PO DAILY, (Reported) Infliximab 100 Mg Soln, 10 MG IV Q6 WEEKS, (Reported) L.acidoph & Paracasei,B.lactis 1 Each Capsule, 1 CAP PO DAILY, (Reported) Loperamide HCl 2 Mg Tablet, 2 MG PO TID PRN for DIARRHEA, (Reported) Magnesium Oxide 400 Mg Tablet, 400 MG PO BID, (Reported) Metoprolol Succinate 200 Mg Tab.er.24h, 200 MG PO DAILY Prescribed by: PRANAY TORO on 04/04/19 1021 Montelukast Sodium 10 Mg Tablet, 10 MG PO HS, (Reported) Multivitamin 1 Each Tablet, 1 TAB PO DAILY, (Reported) Pantoprazole Sodium 40 Mg Tablet.dr, 40 MG PO DAILY, (Reported) Paroxetine HCl 20 Mg Tablet, 20 MG PO DAILY, (Reported) Potassium Citrate 10 Meq Tablet.er, 20 MEQ PO DAILY, (Reported) Potassium Citrate 10 Meq Tablet.er, 10 MEQ PO HS, (Reported) Simvastatin 10 Mg Tablet, 10 MG PO DAILY, (Reported) Tadalafil 5 Mg Tablet, 5 MG PO PRN, (Reported) Tamsulosin HCl 0.4 Mg Cap, 0.4 MG PO HS, (Reported) Patient Home Medication List Home Medication List Reviewed: Yes Review of Systems Review of Systems Constitutional: no symptoms reported, see HPI; No chills, No diaphoresis, No dizziness, No fever, No malaise, No weakness, No weight gain, No weight loss, No other EENTM: No No Symptoms Reported, No See HPI, No Blurred Vision, No Double Vision, No Eye Pain, No Eye Tearing, No Ear Drainage, No Ear Pain, No Mouth Pain, No Mouth Swelling, No Nose Congestion, No Nose Pain, No Throat Pain, No Throat Swelling, No Other Respiratory: Denies No Symptoms Reported, Denies See HPI, Denies Cough, Denies Orthopnea, Denies Shortness of Air, Denies SOA With Exertion, Denies SOA at Rest, Denies Stridor, Denies Wheezing, Denies Other Cardiovascular: Denies No Symptoms Reported, Denies See HPI, Denies Chest Pain, Denies Edema, Denies Irregular Heart Rate, Denies Lightheadedness, Denies Palpitations, Denies Syncope, Denies Other Gastrointestinal: Denies No Symptoms Reported; See HPI; Denies Abdomen Distended, Denies Abdominal Pain, Denies Blood Streaked Stools, Denies Constipated, Denies Diarrhea, Denies Difficulty Swallowing, Denies Nausea, Denies Poor Appetite, Denies Poor Fluid Intake, Denies Rectal Bleeding, Denies Vomiting, Denies Other Genitourinary: Denies No Symptoms Reported, Denies See HPI, Denies Burning, Denies Discharge, Denies Drainage, Denies Frequency; Flank Pain, Hematuria; Denies Incontinence, Denies Pain, Denies Urgency, Denies Other Musculoskeletal: No no symptoms reported, No see HPI; back pain; No gout, No joint pain, No joint swelling, No muscle pain, No muscle stiffness, No muscle cramps, No muscle twitching, No muscle weakness, No neck pain, No other All Other Systems Reviewed Negative Unless Noted: Yes (Negative excepted noted.) Past Eyarsxt-Tcveue-Ofgfga Hx Patient Social History Alcohol Use: Denies Use Recreational Drug Use: No Smoking Status: Former Smoker Type Used: Cigarettes Former Smoker, Quit: Oct 03, 2013 2nd Hand Smoke Exposure: No Recent Hopitalizations: No Immunizations Up To Date PED Vaccines UTD: Yes Date of Pneumonia Vaccine: Apr 03, 2018 Date of Influenza Vaccine: Aug 11, 2018 Seasonal Allergies Seasonal Allergies: Yes (TAKES ALLERGY SHOTS) Past Medical History Surgeries: Yes (SMALL BOWEL RESECTION) Abdominal, Appendectomy, Bowel Surgery, Gallbladder, Tonsillectomy, Transurethral Resection, Vasectomy Respiratory: Yes (TASH WITH CPAP) Currently Using CPAP: Yes Currently Using BIPAP: No Cardiac: Yes (CARDIOVERSION 11/16/18) Atrial Fibrillation, Hypertension Neurological: No Reproductive Disorders: No Sexually Transmitted Disease: No Genitourinary: Yes (HX ESWL) Benign Prostatic Hyperpl, Kidney Stones Gastrointestinal: Yes (REMICADE (ALLERGY INFLECTRA)) Abdominal Hernia, Crohns Disease Musculoskeletal: No Endocrine: Yes (CUSHINGS DISEASE) Adrenal Disease HEENT: No 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 Heart Disease, Diabetes, Other Conditions/Hx Physical Exam Vital Signs Vital Signs - First Documented 12/22/19 11:19 Temp 36.7 Pulse 71 Resp 18 B/P (MAP) 131/86 (101) Pulse Ox 98 Capillary Refill : Height/Weight/BMI Height: 6'0" Weight: 260lbs. 0.0oz. [id number]; 36.00 BMI Method:Stated General Appearance: WD/WN, no apparent distress HEENT: PERRL/EOMI, normal ENT inspection, TMs normal, pharynx normal Neck: non-tender, full range of motion, supple, normal inspection Respiratory: chest non-tender, lungs clear, normal breath sounds, no respiratory distress, no accessory muscle use Cardiovascular: normal peripheral pulses, regular rate, rhythm, no edema, no gallop, no JVD, no murmur Gastrointestinal: normal bowel sounds, non tender, soft, no organomegaly, no pulsatile mass Extremities: normal range of motion, non-tender, normal inspection, no pedal edema, no calf tenderness, normal capillary refill Back: No normal inspection, No no vertebral tenderness, No CVA tenderness (R); CVA tenderness (L); No decreased range of motion, No muscle spasm, No vertebral tenderness, No other Progress/Results/Core Measures Results/Orders Lab Results Laboratory Tests Test 12/22/19 11:30 12/22/19 11:45 Range/Units White Blood Count 5.6 4.3-11.0 10^3/uL Red Blood Count 4.08 L 4.35-5.85 10^6/uL Hemoglobin 14.4 13.3-17.7 G/DL Hematocrit 43 40-54 % Mean Corpuscular Volume 106 H 80-99 FL Mean Corpuscular Hemoglobin 35 H 25-34 PG Mean Corpuscular Hemoglobin Concent 33 32-36 G/DL Red Cell Distribution Width 15.2 H 10.0-14.5 % Platelet Count 126 L 130-400 10^3/uL Mean Platelet Volume 11.7 H 7.4-10.4 FL Neutrophils (%) (Auto) 54 42-75 % Lymphocytes (%) (Auto) 32 12-44 % Monocytes (%) (Auto) 10 0-12 % Eosinophils (%) (Auto) 3 0-10 % Basophils (%) (Auto) 1 0-10 % Neutrophils # (Auto) 3.0 1.8-7.8 X 10^3 Lymphocytes # (Auto) 1.8 1.0-4.0 X 10^3 Monocytes # (Auto) 0.6 0.0-1.0 X 10^3 Eosinophils # (Auto) 0.2 0.0-0.3 10^3/uL Basophils # (Auto) 0.0 0.0-0.1 10^3/uL Prothrombin Time 14.6 12.2-14.7 SEC INR Comment 1.1 0.8-1.4 Sodium Level 140 135-145 MMOL/L Potassium Level 4.0 3.6-5.0 MMOL/L Chloride Level 105 98-107 MMOL/L Carbon Dioxide Level 24 21-32 MMOL/L Anion Gap 11 5-14 MMOL/L Blood Urea Nitrogen 12 7-18 MG/DL Creatinine 0.93 0.60-1.30 MG/DL Estimat Glomerular Filtration Rate > 60 BUN/Creatinine Ratio 13 Glucose Level 167 H 70-105 MG/DL Calcium Level 9.0 8.5-10.1 MG/DL Corrected Calcium 8.9 8.5-10.1 MG/DL Total Bilirubin 0.8 0.1-1.0 MG/DL Aspartate Amino Transf (AST/SGOT) 39 H 5-34 U/L Alanine Aminotransferase (ALT/SGPT) 24 0-55 U/L Alkaline Phosphatase 136 40-136 U/L Total Protein 7.6 6.4-8.2 GM/DL Albumin 4.1 3.2-4.5 GM/DL Urine Color RED H Urine Clarity BLOODY H Urine pH 6.0 5-9 Urine Specific [place] >=1.030 1.016-1.022 Urine Protein 2+ H NEGATIVE Urine Glucose (UA) NEGATIVE NEGATIVE Urine Ketones TRACE H NEGATIVE Urine Nitrite NEGATIVE NEGATIVE Urine Bilirubin NEGATIVE NEGATIVE Urine Urobilinogen 0.2 < = 1.0 MG/DL Urine Leukocyte Esterase NEGATIVE NEGATIVE Urine RBC (Auto) 3+ H NEGATIVE Urine RBC TNTC H /HPF Urine WBC 2-5 /HPF Urine Squamous Epithelial Cells NONE /HPF Urine Crystals NONE /LPF Urine Bacteria NEGATIVE /HPF Urine Casts NONE /LPF Urine Mucus SMALL H /LPF Urine Culture Indicated NO My Orders Orders - TAMARA PATTON MD Cbc With Automated Diff (12/22/19 11:18) Comprehensive Metabolic Panel (12/22/19 11:18) Urinalysis (12/22/19 11:18) Protime With Inr (12/22/19 11:18) Ed Iv/Invasive Line Start (12/22/19 11:18) Ct Abdomen/Pelvis Wo (12/22/19 11:18) Ns Iv 1000 Ml (Sodium Chloride 0.9%) (12/22/19 11:18) Ketorolac Injection (Toradol Injection) (12/22/19 11:30) Ondansetron Injection (Zofran Injectio (12/22/19 11:30) Ns Iv 1000 Ml (Sodium Chloride 0.9%) (12/22/19 11:18) Medications Given in ED Current Medications Medications Dose Ordered Sig/Rui Route Start Time Stop Time Status Last Admin Dose Admin Ketorolac Tromethamine 30 mg ONCE ONCE IVP 12/22/19 11:30 12/22/19 11:31 DC 12/22/19 11:43 30 MG Ondansetron HCl 4 mg ONCE ONCE IVP 12/22/19 11:30 12/22/19 11:31 DC 12/22/19 11:43 4 MG Vital Signs/I&O 12/22/19 11:19 Temp 36.7 Pulse 71 Resp 18 B/P (MAP) 131/86 (101) Pulse Ox 98 Progress Progress Note : Time: 12:18 Progress Note This patient appears to have kidney stone left UVJ. No signs of hydronephrosis. We'll place patient on Flomax encourage by mouth fluids and follow-up with PCP may continue his home tramadol. Diagnostic Imaging Diagonstic Imaging: CT Plain Films/CT/US/NM/MRI: abdomen Comments IMPRESSION: A distal 3rd left ureteral stone measures maximal 5.7 mm and results in only mild upstream ureteral ectasia without hydronephrosis. Additional bilateral renal cortical and parapelvic cysts showed no substantial change with nonobstructing right upper pole renal calculus stable. Time of Consult: 11:58 Reviewed: Reviewed by Me Departure Impression Primary Impression: Kidney stone on left side Additional Impression: Hematuria Disposition: HOME, SELF-CARE Condition: Stable Departure-Patient Inst. Decision time for Depature: 12:19 Referrals: MK CRONIN MD (PCP/Family) Primary Care Physician Patient Instructions: Kidney Stones (DC), Kidney Stone Diet Add. Discharge Instructions: Encourage by mouth fluids. May continue his home tramadol for pain. Flomax as instructed. Hold [place] for 1 day. Follow with PCP in 2-3 days. All discharge instructions reviewed with patient and/or family. Voiced understanding. Scripts Tamsulosin HCl (Flomax) 0.4 Mg Cap 0.4 MG PO DAILY for 30 Days, #30 CAP 0 Refills Prov: TAMARA PATTON MD 12/22/19 TAMARA PATTON MD Dec 22, 2019 11:23
[2019-12-22] MEDS ORDERED: KETOROLAC 30 MG/ML VIAL IVP ONE (11:30)
[2019-12-22] MEDS ORDERED: ONDANSETRON 4 MG/2 ML (SDV) Z0FRAN IVP ONE (11:30)
--- NOTE | 2019-12-22 11:54 | Diagnostic Imaging Report ---
PROCEDURE: CT abdomen and pelvis without contrast. TECHNIQUE: Multiple contiguous axial images were obtained through the abdomen and pelvis without the use of intravenous contrast. Auto Exposure Controls were utilized during the CT exam to meet ALARA standards for radiation dose reduction. INDICATION: Hematuria, left-sided pain. Exam compared with study 08/03/2019. A distal left ureteral stone about 3 to 4 cm proximal to the level of the UVJ in axial plane measured 5.7 x 3.5 mm. It results in mild upstream ureteral ectasia but no substantial hydronephrosis. No significant perinephric or periureteric edema. Patient has few left renal parapelvic cysts in the lower pole unchanged from the comparison study. An exophytic cyst with mild incomplete thin peripheral calcifications off the lower pole of the left kidney, a stable benign finding. Lower pole calcifications on the right are unchanged. It is unclear if these are stones or vascular calcification. A linear calculus in an upper pole calyx on the right is a stone measuring 4 mm in length, this is stable. A few additional low-density right renal cortical foci are believed cystic and are also unchanged. The remaining unopacified abdominal pelvic solid and hollow viscera unremarkable. IMPRESSION: A distal 3rd left ureteral stone measures maximal 5.7 mm and results in only mild upstream ureteral ectasia without hydronephrosis. Additional bilateral renal cortical and parapelvic cysts showed no substantial change with nonobstructing right upper pole renal calculus stable. Dictated by: Dictated on workstation # [id number]
[2019-12-22 11:58] LABS: BASOPHILS % (AUTO) 1 % (0-10); EOSINOPHILS % (AUTO) 3 % (0-10); HEMATOCRIT 43 % (40-54); HEMOGLOBIN 14.4 G/DL (13.3-17.7); LYMPHOCYTES % (AUTO) 32 % (12-44); MEAN CORPUSCULAR HEMOGLOBIN 35 PG (25-34); MEAN CORPUSCULAR HGB CONC 33 G/DL (32-36); MEAN CORPUSCULAR VOLUME 106 FL (80-99); MEAN PLATELET VOLUME 11.7 FL (7.4-10.4); MONOCYTES % (AUTO) 10 % (0-12); PLATELET COUNT 126 10^3/uL (130-400); RED CELL DISTRIBUTION WIDTH 15.2 % (10.0-14.5); WHITE BLOOD COUNT 5.6 10^3/uL (4.3-11.0)
[2019-12-22 11:59] LABS: EOSINOPHILS # (AUTO) 0.2 10^3/uL (0.0-0.3); LYMPHOCYTES # (AUTO) 1.8 X 10^3 (1.0-4.0); MONOCYTES # (AUTO) 0.6 X 10^3 (0.0-1.0); NEUTROPHILS % (AUTO) 54 % (42-75)
[2019-12-22 12:00] LABS: INR 1.1 (0.8-1.4); PROTHROMBIN TIME PATIENT 14.6 SEC (12.2-14.7)
[2019-12-22 12:06] LABS: BUN/CREATININE RATIO 13; CARBON DIOXIDE 24 MMOL/L (21-32); CHLORIDE 105 MMOL/L (98-107); CREATININE SERUM 0.93 MG/DL (0.60-1.30); GFR ESTIMATED > 60; GLUCOSE 167 MG/DL (70-105); SODIUM 140 MMOL/L (135-145)
[2019-12-22 12:07] LABS: ALANINE AMINOTRANSFERASE 24 U/L (0-55); ALBUMIN 4.1 GM/DL (3.2-4.5); ALKALINE PHOSPHATASE 136 U/L (40-136); BILIRUBIN,TOTAL 0.8 MG/DL (0.1-1.0); TOTAL PROTEIN 7.6 GM/DL (6.4-8.2)
[2019-12-22 12:13] LABS: BACTERIA,URINE NEGATIVE /HPF; BILIRUBIN,URINE NEGATIVE (NEGATIVE); CLARITY,URINE BLOODY; COLOR,URINE RED; GLUCOSE, URINE (UA) NEGATIVE (NEGATIVE); KETONES,URINE TRACE (NEGATIVE); LEUKOCYTE ESTERASE ,URINE NEGATIVE (NEGATIVE); NITRITE,URINE NEGATIVE (NEGATIVE); PROTEIN,URINE 2+ (NEGATIVE); RBC,URINE TNTC /HPF
[2019-12-22] MEDS ORDERED: TMSL.4C PO (12:21)
[2019-12-22 12:27] VITALS: BP 131/86
== END 2019-12-22 12:27 | disposition home or self-care (01) ==
LOC: EDUNIT# 11:10 → ER FS 11:12
DX: N20.0 Calculus of kidney (principal); I10 Essential (primary) hypertension; I48.91 Unspecified atrial fibrillation; F32.9 Major depressive disorder, single episode, unspecified; G47.30 Sleep apnea, unspecified; Z85.828 Personal history of other malignant neoplasm of skin; Z99.89 Dependence on other enabling machines and devices; Z87.891 Personal history of nicotine dependence; Z88.5 Allergy status to narcotic agent; Z88.8 Allergy status to other drugs, medicaments and biological substances; Z79.01 Long term (current) use of anticoagulants; Z82.49 Family history of ischemic heart disease and other diseases of the circulatory system
CPT/HCPCS: 36415; 74176; 80053; 81000; 85025; 85610

== ENCOUNTER → 2019-12-24 | Outpatient (CLI) | payer MEDICARE, OTHER ==
[~2019-12-24] MED LIST changes: +AZAT100T PO; +ERGO2000 PO; +PHEN-640 PO; +SULF1TAB35 PO
--- NOTE | 2019-12-24 13:09 | Diagnostic Imaging Report ---
INDICATION: Left ureteral stone. COMPARISON: Correlation is made with the CT study from 12/22/2019. FINDINGS: There is a vague calcific density in the left pelvis measuring 5 to 6 mm in size. This may account for the ureteral calculus noted on the recent CT. Numerous additional pelvic calcifications are noted which likely represent phleboliths. No other potential ureteric calculi are identified. A tiny nonobstructing calculus overlies the right renal shadow. The bowel gas pattern is unremarkable. There are surgical clips in the right upper quadrant. IMPRESSION: Findings suggestive of distal left ureteric calculus, likely the calculus noted on the recent CT. This does appear to be several centimeters above the UVJ. Dictated by: Dictated on workstation # [id number]
== END ==
LOC: RAD 12:19
PROVIDERS: ATTEND Urology
DX: N20.1 Calculus of ureter (principal); Z98.890 Other specified postprocedural states
CPT/HCPCS: 74018

== ENCOUNTER 2019-12-25 05:33 | Outpatient (CLI) | payer MEDICARE, OTHER ==
[~2019-12-25] VITALS: Ht 182 cm; Wt 122.0 kg
[~2019-12-25 05:33] MED LIST changes: -AZAT100T PO; -ERGO2000 PO; -PHEN-640 PO; -SULF1TAB35 PO
[2019-12-25] MEDS ORDERED: PARO30TA3 PO (11:45)
[2019-12-25] MEDS ORDERED: ERGO2000 PO (11:45)
[2019-12-25] MEDS ORDERED: AZAT100T PO (11:45)
[2019-12-25] MEDS ORDERED: ARIP10TA17 PO (11:45)
[2019-12-25] MEDS ORDERED: METO200T48 PO (11:45)
[2019-12-26] MEDS ORDERED: PHEN-640 PO (11:09)
[2019-12-26] MEDS ORDERED: TRM50T PO (11:09)
[2019-12-26] MEDS ORDERED: TMSL.4C PO (11:09)
[2019-12-26] MEDS ORDERED: SULF1TAB35 PO (11:29)
== END 2019-12-25 12:19 | disposition home or self-care (01) ==
LOC: PREOP 05:33
PROVIDERS: ATTEND Urology
DX: Z01.818 Encounter for other preprocedural examination (principal)

== ENCOUNTER 2019-12-26 06:59 | Day surgery (SDC) | payer MEDICARE, OTHER ==
[2019-12-26] VITALS (11 sets, daily range): BP systolic 106–136; BP diastolic 69–87
[~2019-12-26] VITALS: Ht 182 cm; Wt 122.0 kg
[~2019-12-26 06:59] MED LIST changes: +AZAT100T PO; +ERGO2000 PO
--- OUTSIDE RECORDS SUMMARY | 2019-12-26 07:04 | XMS REPORT | Continuity of Care Document ---
Author Organization Unknown Address Unknown Phone Unavailable Allergies Active Description Code Type Severity Reaction Onset Reported/Identified Relationship to Patient Clinical Status Yes hydromorphone HCl [id number] Drug Allergy Unknown HIVES 11/14/[id number] lynne Allergy Unknown N/V 11/14/2018 Yes oxycodone [id number] Drug Allergy Unknown HIVES 11/14/2018 Yes morphine [id number] Drug Allergy Severe HEART STOPPED 11/17/[id number] lynne Allergy Mild N/V 11/17/2018 Yes infliximab-dyyb [id number] D rug Allergy Severe ATRIAL FIB 12/05/2018 [...] DRUG/MEDS/BIOL SUBST, 11/15/2018 BERNJONI LUIZA Ot Z79.52 LINOTYPE MACHINIST (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 9 SEPSIS, UNSPECIFIED ORGANISM [...] PAIN 12/05/2018 LAURA ANTOINE MD Ot Z79.52 USP (CURRENT) USE OF SYSTEMIC STER 12/05/2018 LAURA ANTOINE MD Ot Z79.82 LINOTYPE MACHINIST (CURRENT) USE OF ASPIRIN 12/05/2018 LAURA ANTOINE [...] PAIN 12/07/2018 LAURA ANTOINE MD Ot Z79.52 USP (CURRENT) USE OF SYSTEMIC STER 12/07/2018 LAURA ANTOINE MD Ot Z79.82 LINOTYPE MACHINIST (CURRENT) USE OF ASPIRIN 12/07/2018 LAURA ANTOINE [...] DISEASE, UNSPECIFIED, WITHOUT CO 12/21/2018 Ot K50.00 SECRETARY OF STATE HN'S DISEASE OF SMALL INTESTINE WITHO 12/25/2018 [...] DISEASE, UNSPECIFIED, WITHOUT CO 01/11/2019 Ot K50.00 SECRETARY OF STATE HN'S DISEASE OF SMALL INTESTINE WITHO 01/26/2019 [...] CHACON FACC, ALI FACP CCDS Ot Z79.01 LINOTYPE MACHINIST (CURRENT) USE OF ANTICOAGULANT 01/30/2019 JOSEF CHACON FACC, ALI FACP CCDS Ot Z79.899 OTHER LINOTYPE MACHINIST (CURRENT) DRUG THERAPY 01/30/2019 JOSEF CHACON FACC, [...] CHACON FACC, ALI FACP CCDS Ot Z79.01 LINOTYPE MACHINIST (CURRENT) USE OF ANTICOAGULANT 02/01/2019 JOSEF CHACON FACC, ALI FACP CCDS Ot Z79.899 OTHER USP (CURRENT) DRUG THERAPY 02/01/2019 JOSEF CHACON FACC, [...] MD Ot I25.10 ATHSCL HEART DISEASE OF [place] CORONARY 02/28/2019 MK CRONIN MD Ot J43.9 [...] MD Ot I25.10 ATHSCL HEART DISEASE OF [place] CORONARY 03/22/2019 MK CRONIN MD Ot J43.9 [...] DISEASE, UNSPECIFIED, WITHOUT CO 04/03/2019 Ot K50.00 SECRETARY OF STATE HN'S DISEASE OF SMALL INTESTINE WITHO 04/03/2019 [...] MD Ot I25.10 ATHSCL HEART DISEASE OF [place] CORONARY 04/03/2019 MK CRONIN MD Ot J43.9 [...] TORO MD Ot E86. 0 DEHYDRATION 04/04/2019 PRANAY TORO MD Ot F32. 9 MAJOR DEPRESSIVE DISORDER, SINGLE EPISOD 04/04/2019 PRANAY OTRO MD Ot G47. 33 OBSTRUCTIVE SLEEP APNEA (ADULT) (PEDIATR 04/04/2019 PRANAY TORO MD Ot I10 ESSENTIAL (PRIMARY) HYPERTENSION 04/04/2019 PRANAY TORO MD Ot I48. 0 PAROXYSMAL ATRIAL FIBRILLATION 04/04/2019 PRANAY TORO MD Ot K50.919 CROHN'S DISEASE, UNSPECIFIED, WITH UNSPE 04/04/2019 PRANAY TORO MD Ot N40. 0 BENIGN PROSTATIC HYPERPLASIA WITHOUT LOW 04/04/2019 PRANAY TORO MD Ot R00. 0 TACHYCARDIA, UNSPECIFIED 04/04/2019 PRANAY OTRO MD, Ot T46.4X5A ADVERSE EFFECT OF KJXVIAXEI-RLHZJID-UUSJ 04/04/2019 PRANAY TORO MD Ot Z68. 34 BODY MASS INDEX (BMI) 34.0-34.9, ADULT 04/04/2019 PRANAY TORO MD Ot Z79.899 OTHER USP (CURRENT) DRUG THERAPY 04/04/2019 PRANAY TORO MD Ot Z87.891 PERSONAL HISTORY OF NICOTINE DEPENDENCE 04/23/2019 MK CRONIN MD Ot K50.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, UNSPECIFIED, WITHOUT CO 04/24/2019 EVON JACKMAN BOILER ROOM OPERATOR Ot G47.33 OBSTRUCTIVE SLEEP APNEA (ADULT) (PEDIATR 04/24/2019 EVON JACKMAN BOILER ROOM OPERATOR Ot I48.0 PAROXYSMAL ATRIAL FIBRILLATION 04/24/2019 EVON JACKMAN BOILER ROOM OPERATOR Ot Z79.01 USP (CURRENT) USE OF ANTICOAGULANT 06/09/2019 EDWARDS DO, [...] OF OTHER MALIGNANT NEOP 06/09/2019 EDWARDS DO, NIAN L Ot Z87.1 9 PERSONAL HISTORY OF [...] DISC DEGENERATION, UNS C 08/03/2019 ROSEANNE CHACON, MK Velazquez Ot K50.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, UNSPECIFIED, WITHOUT CO 08/03/2019 MK CRONIN MD Ot K50.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, UNSPECIFIED, WITHOUT CO 08/03/2019 Ot K50.00 SECRETARY OF STATE HN'S DISEASE OF SMALL INTESTINE WITHO 08/03/2019 [...] MD Ot I25.10 ATHSCL HEART DISEASE OF [place] CORONARY 08/03/2019 MK CRONIN MD Ot J43.9 EMPHYSEMA, UNSPECIFIED 08/03/2019 MK CRONIN MD Ot M25.551 PAIN IN RIGHT HIP 08/03/2019 MK CRONIN MD Ot R91.8 OTHER NONSPECIFIC ABNORMAL FINDING OF SACHIN 08/03/2019 MK CRONIN MD Ot Z98.890 OTHER SPECIFIED POSTPROCEDURAL STATES 08/03/2019 MK CRONIN MD Ot 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 08/03/2019 EVON JACKMAN BOILER ROOM OPERATOR Ot G47.33 OBSTRUCTIVE SLEEP APNEA (ADULT) (PEDIATR 08/03/2019 EVON JACKMAN BOILER ROOM OPERATOR Ot I48.0 PAROXYSMAL ATRIAL FIBRILLATION 08/03/2019 EVON JACKMAN BOILER ROOM OPERATOR Ot Z79.01 LINOTYPE MACHINIST (CURRENT) USE OF ANTICOAGULANT 08/03/2019 ALIX HARTMAN [...] 08/03/2019 TORRES ROBERTSON MD Ot Z79. 01 LINOTYPE MACHINIST (CURRENT) USE OF ANTICOAGULANT 08/03/2019 TORRES ROBERTSON [...] ELBOW 10/09/2019 SMITHA LANDA MD Ot Z79.01 USP (CURRENT) USE OF ANTICOAGULANT 10/09/2019 SMITHA LANDA [...] DISEASE, UNSPECIFIED, WITHOUT CO 10/09/2019 Ot K50.00 SECRETARY OF STATE HN'S DISEASE OF SMALL INTESTINE WITHO 10/09/2019 [...] MD Ot I25.10 ATHSCL HEART DISEASE OF [place] CORONARY 10/09/2019 MK CRONIN MD Ot J43.9 [...] ATRIAL FIBRILLATION 10/09/2019 EVON JACKMAN Ot Z79.01 USP (CURRENT) USE OF ANTICOAGULANT 10/09/2019 ALIX HARTMAN [...] 10/30/2019 VINH HERNANDEZ DO Ot Z79. 01 LINOTYPE MACHINIST (CURRENT) USE OF ANTICOAGULANT 10/30/2019 VINH HERNANDEZ [...] 11/01/2019 VINH HERNANDEZ DO Ot Z79. 01 USP (CURRENT) USE OF ANTICOAGULANT 11/01/2019 VINH HERNANDEZ [...] R03. 0 ELEVATED BLOOD-PRESSURE READING, W/O EUSEBIO 11/05/2019 VINH HERNANDEZ DO Ot Z79. 01 LINOTYPE MACHINIST (CURRENT) USE OF ANTICOAGULANT 11/05/2019 VINH HERNANDEZ [...] Description Performed By Jose L ramires On [id number] RE STORATION OF CARDIAC RHYTHM, SINGLE 11/17/2018 [...] OF GROWTH Isolated NRG Bacterial blood culture [id number] NRG Complete urinalysis with reflex to cultu [...] g/dL 3.2-4.5 CALCIUM CORRECTED 8.8 mg/dL 8.5-10.1 Complete blood count (CBC) with automate d white blood cell (WBC) differential - 12/22/19 11:30 Blood leukocytes automated count (number/volume) 5.6 10*3/uL 4.3-11.0 Blood erythrocytes automated count (number/volume) 4.08 10*6/uL 4.35-5.85 Venous blood hemoglobin measurement (mass/volume) 14.4 g/dL 13.3-17.7 Blood hematocrit (volume fraction) 43 % 40-54 Automated erythrocyte mean corpuscular volume 106 [foz_us] 80-99 Automated erythrocyte mean corpuscular h emoglobin (mass per erythrocyte) 35 pg 25-34 Automated erythrocyte mean corpuscular h emoglobin concentration measurement (mass/volume) 33 g/dL 32-36 Automated erythrocyte distribution width ratio 15. 2 % 10.0- 14.5 Automated blood platelet count (count/volume) 126 10*3/uL 130-400 Automated blood platelet mean volume measurement 11.7 [foz_us] 7.4-10.4 Automated blood neutrophils/100 leukocytes 54 % 42-75 Automated blood lymphocytes/100 leukocytes 32 % 12-44 Blood monocytes/100 leukocytes 10 % 0-12 Automated blood eosinophils/100 leukocytes 3 % 0-10 Automated blood basophils/100 leukocytes 1 % 0-10 Blood neutrophils automated count (number/volume) 3.0 10*3 1.8-7.8 Blood lymphocytes automated count (number/volume) 1.8 10*3 1.0-4.0 Blood monocytes automated count (number/volume) 0. 6 10*3 0.0-1.0 Automated eosinophil count 0.2 10*3/uL 0 .0-0.3 Automated blood basophil count (count/volume) 0.0 10*3/uL 0.0-0.1 PT panel in platelet poor plasma by coag ulation assay - 12/22/19 11:30 Prothrombin time (PT) in platelet poor plasma by coagu lation assay 14.6 s 12.2-14.7 INR in platelet poor plasma or blood by coagulation as say 1.1 0.8-1.4 Comprehensive metabolic panel - 12/22/19 11:30 Serum or plasma sodium measurement (moles/volume) 140 mmol/L 135-145 Serum or plasma potassium measurement (moles/volume) 4.0 mmol/L 3.6-5.0 Serum or plasma chloride measurement (moles/volume) 105 mmol/L 98-107 Carbon dioxide 24 mmol/L 21-32 Serum or plasma anion gap determination (moles/volume) 11 mmol/L 5-14 Serum or plasma urea nitrogen measurement (mass/volume ) 12 mg/dL 7-18 Serum or plasma creatinine measurement (mass/volume) 0.93 mg/dL 0.60-1.30 Serum or plasma urea nitrogen/creatinine mass ratio 13 NRG Serum or plasma creatinine measurement w ith calculation of estimated glomerular filtration rate > NRG Serum or plasma glucose measurement (mass/volume) 167 mg/dL 70-105 Serum or plasma calcium measurement (mass/volume) 9.0 mg/dL 8.5-10.1 Serum or plasma total bilirubin measurement (mass/volu me) 0.8 mg/dL 0.1-1.0 Serum or plasma alkaline phosphatase paula surement (enzymatic activity/volume) 136 U/L 40-136 Serum or plasma aspartate aminotransfera se measurement (enzymatic activity/volume) 39 U/L 5-34 Serum or plasma alanine aminotransferase measurement (enzymatic activity/volume) 24 U/L 0-55 Serum or plasma protein measurement (mass/volume) 7.6 g/dL 6.4-8.2 Serum or plasma albumin measurement (mass/volume) 4.1 g/dL 3.2-4.5 CALCIUM CORRECTED 8.9 mg/dL 8.5-10.1 Complete urinalysis with reflex to cultu re - 12/22/19 11:45 Urine color determination RED NRG Urine clarity determination BLOODY NR G Urine pH measurement by test strip 6.0 5-9 Specific gravity of urine by test strip >= 1.016-1.022 Urine protein assay by test strip, semi-quantitative 2+ NEGATIVE Urine glucose detection by automated test strip NE GATIVE NEGATIVE Erythrocytes detection in urine sediment by light micr oscopy 3+ NEGATIVE Urine ketones detection by automated test strip TR WILSON NEGATIVE Urine nitrite detection by test strip NEGATIVE NEGATIVE Urine total bilirubin detection by test strip NEGA TIVE NEGATIVE Urine urobilinogen measurement by automated test strip (mass/volume) 0.2 mg/dL < = 1.0 Urine leukocyte esterase detection by dipstick NEG ATIVE NEGATIVE Automated urine sediment erythrocyte cou nt by microscopy (number/high power field) TNTC NRG Automated urine sediment leukocyte count by microscopy (number/high power field) [HPF] NRG Bacteria detection in urine sediment by light microsco py NEGATIVE NRG Squamous epithelial cells detection in u rine sediment by light microscopy NONE NRG Crystals detection in urine sediment by light microsco py NONE NRG Casts detection in urine sediment by light microscopy NONE NRG Mucus detection in urine sediment by light microscopy SMALL NRG Complete urinalysis with reflex to culture NO NRG Encounters ACCT No. Visit Date/Time Discharge Status Pt. Type Provider Facility Loc./Unit Complaint [id number] 12/22/2019 11:12:00 12:27:00 DIS Emergency ABDI CHACON, TAMARA Mcpherson [facility] ER FS LOWER BACK PAIN,BLOODY URINE [id number] 10/30/2019 15:39:00 16:45:00 DIS Emergency VINH HERNANDEZ DO [facility] ER FS BLOOD PRESSURE HIGH [id number] 10/09/2019 10:33:00 11:45:00 DIS Emergency SYEDA CHACON, SMITHA Ragland [facility] ER FS LT ARM PAIN [id number] 08/03/2019 11:53:00 13:50:00 DIS Emergency MARCELO CHACON, TORRES Lovelace [facility] ER FS RT FLANK/ABD PAIN [id number] 07/09/2019 09:14:00 23:59:59 CLS Outpatient DEVAN CHACON, ALIX Carroll [facility] ORTHO [id number] 06/19/2019 14:00:00 14:00:00 CAN Preadmit MK CRONIN MD [facility] RAD ACUTE PAIN IN RIGHT JULIO CESAR ULDER [id number] 06/09/2019 18:10:00 19:48:00 DIS Emergency NINA EDWARDS DO [facility] ER FS RT ARM PAIN [id number] 04/30/2019 10:00:00 23:59:59 CLS Preadmit MK CRONIN MD [facility] SDC CROHNS DISEASE [id number] 2019 10:01:00 23:59:59 CLS Outpatient EVON JACKMAN [facility] LAB I48.0 [id number] 04/03/2019 12:45:00 10:34:00 DIS Inpatient PRANAY TORO MD [facility] 4TH PALPS PAF [id number] 03/19/2019 09:34:00 23:59:59 CLS Outpatient MK CRONIN MD [facility] CROHNS DISEASE [id number] 02/27/2019 08:10:00 23:59:59 CLS Outpatient MK CRONIN MD [facility] RAD FS CHEST WALL PAIN [id number] 02/05/2019 09:15:00 23:59:59 CLS Outpatient MK CRONIN MD [facility] CROHNS DISEASE [id number] 01/30/2019 11:50:00 18:45:00 DIS Outpatient JOSEF CHACON FACC, ALEX CAMPBELLP CC DS [facility] CATH CHEST PAIN, PAF,SOB [id number] 01/02/2019 07:46:00 23:59:59 CLS Outpatient JOSEF CHACON FACC, ALEX CAMPBELLP CC DS [facility] CARD PAF [id number] 12/25/2018 09:39:00 23:59:59 CLS Outpatient MK CRONIN MD [facility] CROHNS DISEASE [id number] 12/05/2018 08:41:00 11:54:00 DIS Emergency LAURA ANTOINE MD [facility] ER FS CHEST PAIN; ABD PAIN [id number] 11/16/2018 16:30:00 13:26:00 DIS Inpatient PRANAY TORO MD [facility] 4TH UTI,SMALL BOWEL OBSTRUC TION,SEVERE SEPSIS [id number] 11/14/2018 18:51:00 00:46:00 DIS Emergency LUIZA JUÁREZ [facility] ER CHEST PAINS [id number] 11/13/2018 09:40:00 23:59:59 CLS Outpatient MK CRONIN MD [facility] CROHNS DISEASE [id number] 12/24/2019 12:19:[address] Outpatient KIMBERLYN CHACON, NEHEMIAS Sahni [facility] RAD LT URETRAL STONE [id number] 12/20/2018 12:12:00 Document Registration
[2019-12-26] MEDS ORDERED: LACTATED RINGERS 1,000 ML IV PRN (07:05)
[2019-12-26] MEDS ORDERED: cefTRIAXone FOR IV USE 1,000 MG in WATER (STERILE) FOR INJECTION 10 ML IV ONE (07:15)
--- NOTE | 2019-12-26 07:29 | Progress Note-Pre Operative ---
Pre-Operative Progress Note H&P Reviewed The H&P was reviewed, patient examined and no changes noted. Date Seen by Provider: Dec 26, 2019 Time Seen by Provider: 07:28 Date H&P Reviewed: Dec 26, 2019 Time H&P Reviewed: 07:28 Pre-Operative Diagnosis: LT DISTAL URETERAL STONE NEHEMIAS SOFIA MD Dec 26, 2019 07:29
[2019-12-26] MEDS ORDERED: CATHETER FLUSH 10 ML SYR IV PRN (07:30)
--- NOTE | 2019-12-26 07:30 | Progress Note-Post Operative ---
Post-Operative Progess Note Surgeon (s)/Contour Band Saw Operator Vertical (s) Surgeon NEHEMIAS SOFIA MD Contour Band Saw Operator Vertical: NONE Pre-Operative Diagnosis LT DISTAL URETERAL STONE Post-Operative Diagnosis SAME Procedure & Operative Findings Date of Procedure 12/26/19 Procedure Performed/Findings LT URETEROSCOPY WITH STONE LITHOTRIPSY Anesthesia Type GENERAL Estimated Blood Loss Estimated blood loss (mL): NONE Specimens/Packing Specimens Removed NONE Packing: NONE NEHEMIAS SOFIA MD Dec 26, 2019 07:30
--- NOTE | 2019-12-26 07:32 | Discharge Inst-Urology ---
Discharge Inst-Urology Reconcile Patient Problems Problems Reviewed?: Yes Final Diagnosis LT DISTAL URETERAL STONE Patient Instructions/Follow Up Plan/Assessment/Instructions Please make appointment to been seen in office in 2 weeks. Increase oral fluids for 48 hours and then as needed. Diet and Activity as tolerated. If questions or concerns contact your physician Or seek help at emergency department. NEHEMIAS SOFIA MD Dec 26, 2019 07:32
--- NOTE | 2019-12-26 07:54 | Diagnostic Imaging Report ---
INDICATION: Preop. Left renal calculus. Comparison with 12/26/2019. FINDINGS: Double-J stent has been removed on the left. There are several small calcifications overlying the upper and lower pole calyces of the right kidney. No calculi are seen along the path of ureters. IMPRESSION: 1. Removal of left double-J stent. 2. Small calculi are seen overlying the right kidney. Dictated by: Dictated on workstation # [id number]
[2019-12-26] MEDS ORDERED: fentaNYL INJECTION 100 MCG/2 ML AMP ONE (08:04)
[2019-12-26] MEDS ORDERED: MIDAZOLAM 2 MG/2 ML (VERSED) VIAL ONE (08:05)
[2019-12-26] MEDS ORDERED: LIDOCAINE PF 1% 5 ML (XYLOCAINE) AMP ONE (08:06)
[2019-12-26] MEDS ORDERED: ROCURONIUM 10 MG/ML 5 ML SYRINGE IV ONE (08:53)
[2019-12-26] MEDS ORDERED: FUROSEMIDE 40 MG/4 ML INJ (LASIX) ONE (08:53)
[2019-12-26] MEDS ORDERED: LIDOCAINE PF 2% 5 ML (XYLOCAINE) VIAL ONE (08:53)
[2019-12-26] MEDS ORDERED: KETOROLAC 30 MG/ML VIAL ONE (08:53)
[2019-12-26] MEDS ORDERED: ONDANSETRON 4 MG/2 ML (SDV) Z0FRAN ONE (08:53)
[2019-12-26] MEDS ORDERED: proPOfol 200 MG/20 ML (DIPRIVAN) VIAL IV ONE (08:53)
[2019-12-26] MEDS ORDERED: SEVOFLURANE (ULTANE) 15 ML INHAL SOLN ONE ×4 (08:53→09:12)
[2019-12-26] MEDS ORDERED: PHENYLEPHRINE 100 MCG/ML 10 ML (ANESTHESIA) SYR ONE (08:57)
[2019-12-26] MEDS ORDERED: ONDANSETRON 4 MG/2 ML (SDV) Z0FRAN IVP PRN (09:30)
[2019-12-26] MEDS ORDERED: fentaNYL INJECTION 100 MCG/2 ML AMP IVP ONE (09:30)
[2019-12-26] MEDS ORDERED: PHENAZOPYRIDINE 100 MG (PYRIDIUM) TABLET ONE (11:07)
[2019-12-26] MEDS ORDERED: PHEN-640 PO (11:09)
[2019-12-26] MEDS ORDERED: TMSL.4C PO (11:09)
[2019-12-26] MEDS ORDERED: TRM50T PO (11:09)
[2019-12-26] MEDS ORDERED: PHENAZOPYRIDINE 100 MG (PYRIDIUM) TABLET PO ONE (11:15)
--- NOTE | 2019-12-26 11:22 | NUR ---
HAS DENIED PAIN SINCE ARRIVAL FROM [facility] TO AMB SURG POST OP, BUT NOW C/O LOW PELVIC PAIN RATED 7. HAS BEEN UP WITH ASSIST AND HAS VOIDED CLEAR, YELLOW URINE WITH STONE FRAGMENTS PASSED AND PRESENT IN STRAINER. PYRIDIUM 200 MG PO AND TRAMADOL 50 MG GIVEN PO.
[2019-12-26] MEDS ORDERED: SULF1TAB35 PO (11:29)
--- NOTE | 2019-12-26 11:54 | Anesthesia-General Post-Op ---
General Patient Condition Mental Status/LOC: Same as Preop Cardiovascular: Satisfactory Nausea/Vomiting: Absent Respiratory: Satisfactory Pain: Controlled Complications: Absent Post Op Complications Complications None Follow Up Care/Instructions Patient Instructions None needed. Anesthesia/Patient Condition Patient Condition Patient is doing well, no complaints, stable vital signs, no apparent adverse anesthesia problems. No complications reported per nursing. DIXON ULLOA CRNA Dec 26, 2019 11:54
--- NOTE | 2019-12-26 12:00 | NUR ---
DENIES PAIN. HAS BEEN UP AGAIN TO BR WITH ASSIST AND VOIDED, PASSING MORE FINE STONE FRAGMENTS. TAKING PO FLUIDS WITHOUT PROBLEM, ALERT.
--- NOTE | 2019-12-26 12:35 | NUR ---
CONTINUES TO DENY PAIN. ALERT, CHEERFUL, REQUESTING DISMISSAL.
--- NOTE | 2019-12-26 13:12 | OPERATIVE REPORT ---
DATE OF SERVICE: 12/26/2019 PREOPERATIVE DIAGNOSIS: Left distal ureteral stone. POSTOPERATIVE DIAGNOSIS: Left distal ureteral stone. OPERATION PERFORMED: Left ureteroscopy with stone lithotripsy. SURGEON: Jae Sofia MD ANESTHESIA: General. COMPLICATIONS: None. DESCRIPTION OF PROCEDURE: Under satisfactory general anesthesia, the patient in lithotomy position, genitalia were prepped and draped in the usual sterile fashion. Cystoscope was introduced under vision. The anterior urethra was normal. The prostate was somewhat enlarged causing some bladder neck obstruction. Bladder was entered, revealed some trabeculations. Ureteric orifices normal with clear efflux, very sluggish on the left side. Using the foroblique lens, I dilated the left ureteral orifice intramural portion to accommodate a 6.9 [place] semi-rigid ureteroscope. I went up to the stone. The stone was floating, so I first used a power of 5. However, it was not enough, the stone was pretty hard. I went ahead and raised the power to 12 and I keep fragmenting the stone and changing it almost up to the kidney, broke up into very small fragments easily to pass. I looked at an antegrade fashion, removed the ureteroscope and reinserted the cystoscope to empty the bladder. The patient tolerated the procedure and anesthesia well and was sent to recovery room in stable condition. Job ID: [id number] DocumentID: [id number] Dictated Date: 12/26/2019 09:29:00 Embossing Machine Operator Date: 12/26/2019 13:09:40 Dictated By: JAE SOFIA MD
== END 2019-12-26 12:35 | disposition home or self-care (01) ==
LOC: SDC 06:59
PROVIDERS: ATTEND Urology
DX: N20.1 Calculus of ureter (principal); Z11.2 Encounter for screening for other bacterial diseases; E11.9 Type 2 diabetes mellitus without complications; I10 Essential (primary) hypertension; K50.90 Crohn's disease, unspecified, without complications; N40.0 Benign prostatic hyperplasia without lower urinary tract symptoms; E78.5 Hyperlipidemia, unspecified; G47.33 Obstructive sleep apnea (adult) (pediatric); F32.9 Major depressive disorder, single episode, unspecified; E66.01 Morbid (severe) obesity due to excess calories; E24.9 Cushing's syndrome, unspecified; Z79.01 Long term (current) use of anticoagulants; Z79.899 Other long term (current) drug therapy; Z68.36 Body mass index [BMI] 36.0-36.9, adult; Z87.891 Personal history of nicotine dependence
CPT/HCPCS: 74018; 87081

== ENCOUNTER 2020-04-14 17:40 | Emergency (ER) | payer MEDICARE, OTHER ==
[~2020-04-14 17:40] MED LIST changes: +PHEN-640 PO; +SULF1TAB35 PO
--- NOTE | 2020-04-14 18:29 | ED General ---
General Chief Complaint: General Problems/Pain Stated Complaint: CHEST/THROAT SORENESS Nursing Triage Note: Patient states took pills this morning at 0700 and felt like they got stuck. He threw up his potassium pill and is now having sore throat, and burning in his esophagus and stomach. Started having a hoarse voice at about 10 a.m. Is concerned that something may still be stuck. Is swallowing liquids and saliva with no difficulty. Nursing Sepsis Screen: No Definite Risk Source of Information: Patient History of Present Illness Date Seen by Provider: Apr 14, 2020 Time Seen by Provider: 18:00 Initial Comments This patient is a 64-year-old male presents to the emergency department comp laining of mild cough this morning when he tried to take his medications. Patient is concerned he might of had one of his tablets go down the wrong pipe. Patient believes he might have a tablet stuck in his airway. Patient states has hoarseness to his voice with a cough that he had this morning and has not been coughing since. Patient states she just hurts to take a deep breath. Will do medical evaluation treat as needed. Allergies and Home Medications Allergies Coded Allergies: morphine (Unverified Allergy, Severe, HEART STOPPED, 11/17/18) hydromorphone HCl (Unverified Allergy, Mild, HIVES, 12/25/19) oxycodone (Unverified Allergy, Mild, HIVES, 12/25/19) infliximab-dyyb (Unverified Adverse Reaction, Severe, ATRIAL FIB, 12/05/18) PT WENT INTO A FIB WHILE RECEIVING INFUSION meperidine HCl (Unverified Adverse Reaction, Mild, N/V, 11/17/18) Home Medications Aripiprazole 10 Mg Tablet, 10 MG PO DAILY, (Reported) Azathioprine 50 Mg Tablet, 150 MG PO DAILY, (Reported) TAKES 3 (50MG) TABLETS Azathioprine 100 Mg Tablet, 250 MG PO DAILY, (Reported) Cholestyramine 5 Gm Powder, 4 GM PO BID PRN for DIARRHEA, (Reported) Cyanocobalamin 1,000 Mcg/Ml Inj, 1,000 MCG IM MONTHLY, (Reported) Diphenoxylate HCl/Atropine 1 Each Tablet, 2 TAB PO TID, (Reported) Doxazosin Mesylate 1 Mg Tablet, 1 MG PO HS, (Reported) USE IF SYSTOLIC BP IS <180 Ergocalciferol (Vitamin D2) 2,000 Unit Tablet, 50,000 UNIT PO Mo, (Reported) Fish Oil/Dha/Epa 1 Each Capsule, 1,200 MG PO DAILY, (Reported) Folic Acid 0.4 Mg Tablet, 0.4 MG PO DAILY, (Reported) Infliximab 100 Mg Soln, 10 MG IV Q6 WEEKS, (Reported) L.acidoph & Paracasei,B.lactis 1 Each Capsule, 1 CAP PO DAILY, (Reported) Loperamide HCl 2 Mg Tablet, 2 MG PO TID PRN for DIARRHEA, (Reported) Magnesium Oxide 400 Mg Tablet, 400 MG PO BID, (Reported) Metoprolol Succinate 200 Mg Tab.er.24h, 200 MG PO BID, (Reported) Montelukast Sodium 10 Mg Tablet, 10 MG PO HS, (Reported) Multivitamin 1 Each Tablet, 1 TAB PO DAILY, (Reported) Pantoprazole Sodium 40 Mg Tablet.dr, 40 MG PO DAILY, (Reported) Paroxetine HCl 30 Mg Tablet, 30 MG PO DAILY, (Reported) Phenazopyridine HCl 200 Mg Tablet, 1 TAB PO TID Prescribed by: ELIZABETH BARROSO on 12/26/191108 Potassium Citrate 10 Meq Tablet.er, 10 MEQ PO TID, (Reported) Simvastatin 10 Mg Tablet, 10 MG PO DAILY, (Reported) Sulfamethoxazole/Trimethoprim 1 Each Tablet, 1 EACH PO BID Prescribed by: ELIZABETH BARROSO on 12/26/19 112 Tadalafil 5 Mg Tablet, 5 MG PO PRN, (Reported) Tamsulosin HCl 0.4 Mg Cap, 0.4 MG PO HS, (Reported) Tamsulosin HCl 0.4 Mg Cap, 0.4 MG PO DAILY Prescribed by: ELIZABETH BARROSO on 12/26/19 110 Tramadol HCl 50 Mg Tablet, 1-2 TAB PO Q4H PRN for PAIN-MODERATE (5-7) Prescribed by: ELIZABETH BARROSO on 12/26/19 110 Patient Home Medication List Home Medication List Reviewed: Yes Review of Systems Review of Systems Constitutional: No no symptoms reported; see HPI; No chills, No diaphoresis, No dizziness, No fever, No malaise, No weakness, No weight gain, No weight loss, No other EENTM: No see HPI, No no symptoms reported, No ear discharge, No hearing loss, No ear pain, No blurred vision, No double vision, No eye pain, No tearing, No vision loss, No dental problems, No hoarseness, No mouth pain, No mouth swelling, No epistaxis, No nose congestion, No nose pain, No throat pain, No throat swelling, No other Respiratory: No no symptoms reported; see HPI, cough; No dyspnea on exertion, No hemoptysis, No orthopnea, No phlegm, No short of breath, No stridor, No wheezing, No other Cardiovascular: No no symptoms reported, No see HPI, No chest pain, No edema, No Hx of Intervention, No palpitations, No syncope, No vascular heart diseas, No other Gastrointestinal: No RUQ, No LUQ, No RLQ, No LLQ, No no symptoms reported, No see HPI, No abdominal pain, No constipation, No diarrhea, No dysphagia, No hematemesis, No heartburn, No jaundice, No loss of appetite, No melena, No nausea, No vomiting, No other Genitourinary: No no symptoms reported, No see HPI, No decreased output, No discharge, No dysuria, No frequency, No hematuria, No hesitancy, No incontinence, No nocturia, No pain, No other Musculoskeletal: No no symptoms reported, No see HPI, No back pain, No gout, No joint pain, No joint swelling, No muscle pain, No muscle stiffness, No muscle cramps, No muscle twitching, No muscle weakness, No neck pain, No other All Other Systems Reviewed Negative Unless Noted: Yes Past [id number]-[id number]-[id number] Hx Patient Social History Type Used: Cigarettes Former Smoker, Quit: Dec 24, 2014 2nd Hand Smoke Exposure: Yes Recent Foreign Travel: No Contact w/Someone Who Travel: No Recent Infectious Disease Expo: No Recent Hopitalizations: No Immunizations Up To Date PED Vaccines UTD: Yes Date of Pneumonia Vaccine: Jul 09, 2019 Date of Influenza Vaccine: Jul 09, 2019 Seasonal Allergies Seasonal Allergies: Yes (TAKES ALLERGY SHOTS) Past Medical History Surgeries: Yes (SMALL BOWEL RESECTION) Abdominal, Appendectomy, Bowel Surgery, Gallbladder, Tonsillectomy, Transurethral Resection, Vasectomy Respiratory: Yes (TASH WITH CPAP) Currently Using CPAP: Yes Currently Using BIPAP: No Cardiac: Yes (CARDIOVERSION 11/16/18) Atrial Fibrillation, Hypertension Neurological: No Reproductive Disorders: No Sexually Transmitted Disease: No Genitourinary: Yes (HX ESWL) Benign Prostatic Hyperpl, Kidney Stones Gastrointestinal: Yes (REMICADE (ALLERGY INFLECTRA)) Abdominal Hernia, Crohns Disease Musculoskeletal: No Endocrine: Yes (CUSHINGS DISEASE) Adrenal Disease HEENT: No 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 Heart Disease, Diabetes, Other Conditions/Hx Physical Exam Vital Signs Vital Signs - First Documented 04/14/20 17:55 Temp 36.2 Pulse 67 Resp 18 B/P (MAP) 124/83 (97) Pulse Ox 96 Capillary Refill : Less Than 3 Seconds Height, Weight, BMI Height: 6'0" Weight: 260lbs. 0.0oz. [id number]; 36.83 BMI Method:Stated General Appearance: No Apparent Distress, WD/WN HEENT: PERRL/EOMI, TMs Normal, Normal ENT Inspection, Pharynx Normal Neck: Full Range of Motion, Normal Inspection, Non Tender, Supple, Carotid Bruit Respiratory: Chest Non Tender, Lungs Clear, Normal Breath Sounds, No Accessory Muscle Use, No Respiratory Distress Cardiovascular: Regular Rate, Rhythm, No Edema, No Gallop, No JVD, No Murmur, Normal Peripheral Pulses Gastrointestinal: Normal Bowel Sounds, No Organomegaly, No Pulsatile Mass, Non Tender, Soft Extremity: Normal Capillary Refill, Normal Inspection, Normal Range of Motion, Non Tender, No Calf Tenderness, No Pedal Edema Neurologic/Psychiatric: Alert, Oriented x3, No Motor/Sensory Deficits, Normal Mood/Affect Progress/Results/Core Measures Suspected Sepsis Recent Fever Within 48 Hours: No Infection Criteria Present: None New/Unexplained Altered Menta: No Sepsis Screen: No Definite Risk SIRS Temperature: Pulse: 67 Respiratory Rate: 18 Blood Pressure 124 /83 Mean: 97 Results/Orders My Orders Orders - TAMARA PATTON MD Chest Pa/Lat (2 View) (04/14/20 18:27) Vital Signs/I&O 04/14/20 17:55 Temp 36.2 Pulse 67 Resp 18 B/P (MAP) 124/83 (97) Pulse Ox 96 Capillary Refill : Less Than 3 Seconds Blood Pressure Mean: 97 Progress Note : Time: 19:11 Progress Note Negative evaluation chest x-ray. Discussed with patient about options. Patient was offered full medical screening exam and further imaging with patient is decline. Patient encouraged to drink plenty of by mouth fluids saltwater gargles as needed. Follow up with PCP in 2-3 days if symptoms don't improve or worsen. Patient may also return to the emergency department if needed. Departure Impression Primary Impression: Cough Disposition: 01 HOME, SELF-CARE Condition: Stable Departure-Patient Inst. Referrals: MK CRONIN MD (PCP/Family) Primary Care Physician Patient Instructions: Cough, Adult (DC) Add. Discharge Instructions: Patient encouraged to drink plenty of by mouth fluids saltwater gargles as needed. Follow up with PCP in 2-3 days if symptoms don't improve or worsen. Patient may also return to the emergency department if needed. All discharge instructions reviewed with patient and/or family. Voiced understanding. TAMARA PATTON MD Apr 14, 2020 18:29
--- NOTE | 2020-04-14 18:55 | Diagnostic Imaging Report ---
Indication: Aspiration PA and lateral chest Heart size and pulmonary vascularity are normal. Lungs are clear. There are no effusions or pneumothoraces. IMPRESSION: Negative chest Dictated by: Dictated on workstation # [id number]
[2020-04-14 19:15] VITALS: BP 104/64
--- OUTSIDE RECORDS SUMMARY | 2020-04-14 20:14 | XMS REPORT | Continuity of Care Document ---
Author Organization Unknown Address Unknown Phone Unavailable Allergies Active Description Code Type Severity Reaction Onset Reported/Identified Relationship to Patient Clinical Status Yes hydromorphone HCl [id number] Drug Allergy Unknown HIVES 11/14/[id number] lynne Allergy Unknown N/V 11/14/2018 Yes oxycodone [id number] Drug Allergy Unknown HIVES 11/14/2018 Yes morphine [id number] Drug Allergy Severe HEART STOPPED 11/17/[id number] lynne Allergy Mild N/V 11/17/2018 Yes infliximab-dyyb [id number] D rug Allergy Severe ATRIAL FIB 12/05/2018 Yes hydromorphone HCl [id number] Drug Allergy Mild HIVES 12/25/2019 Yes oxycodone [id number] Drug Allergy Mild HIVES 12/25/2019 Medications There is no data. 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, UNSPECIFIED, WITHOUT CO 11/16/2018 BERNJONI LUIZA Ot I10 ESSENTIAL (PRIMARY) HYPERTENSION 11/16/2018 VICENTEJONI LUIZA Ot R07.89 OTHER CHEST PAIN 11/16/2018 BERNJONI LUIZA Ot R11.2 NAUSEA WITH VOMITING, UNSPECIFIED 11/16/2018 VICENTEJONI LUIZA Ot T50.995A ADVERSE EFFECT OF DRUG/MEDS/BIOL SUBST, 11/16/2018 VICENTEJONI LUIZA Ot Z79.52 COOK MORNING (CURRENT) USE OF SYSTEMIC STER 11/16/2018 MARQUITA LUIZA Ot Z87.19 PERSONAL HISTORY OF OTHER DISEASES OF TH 11/16/2018 MARQUITA LUIZA Ot Z87.442 PERSONAL HISTORY OF URINARY CALCULI 11/16/2018 MARQUITA LUIZA Ot Z88.5 ALLERGY STATUS TO NARCOTIC AGENT STATUS 11/16/2018 VICENTEJONI LUIZA Ot Z88.8 ALLERGY STATUS TO OTH DRUG/MEDS/BIOL SUB 11/16/2018 LYNSEY JUÁREZIS Ot Z90.79 ACQUIRED ABSENCE OF OTHER GENITAL ORGAN( 11/16/2018 MARQUITA LUIZA Ot Z90.89 ACQUIRED ABSENCE OF OTHER ORGANS 11/16/2018 MARQUITA LUIZA Ot Z98.890 OTHER SPECIFIED POSTPROCEDURAL STATES 11/21/2018 CORTEZ CHAOCN, PRANAY Velazquez Ot A41. 9 SEPSIS, UNSPECIFIED ORGANISM 11/21/2018 CORTEZ CHACON, PRANAY Velazquez Ot D69. 6 THROMBOCYTOPENIA, UNSPECIFIED 11/21/2018 CORTEZ CHACON, PRANAY Velazquez Ot E24. 9 MAXIME'S SYNDROME, UNSPECIFIED 11/21/2018 CORTEZ CHACON, PRANAY Velazquez Ot E83. 42 HYPOMAGNESEMIA 11/21/2018 PRANAY TORO [...] 0 CALCULUS OF KIDNEY 11/22/2018 PRANAY TORO MD, Ot N30. 00 ACUTE CYSTITIS WITHOUT HEMATURIA 11/22/2018 PRANAY TORO MD Ot R65. 21 SEVERE SEPSIS WITH SEPTIC SHOCK 12/05/2018 LAURA ANTOINE MD Ot I10 ESSENTIAL (PRIMARY) HYPERTENSION 12/05/2018 LAURA ANTOINE MD Ot K50.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, UNSPECIFIED, WITHOUT CO 12/05/2018 LAURA ANTOINE MD Ot R07.89 OTHER CHEST PAIN 12/05/2018 LAURA ANTOINE MD Ot Z79.52 FPC (CURRENT) USE OF SYSTEMIC STER 12/05/2018 LAURA ANTOINE MD Ot Z79.82 FPC (CURRENT) USE OF ASPIRIN 12/05/2018 LAURA ANTOINE MD Ot Z85.828 PERSONAL HISTORY OF OTHER MALIGNANT NEOP 12/05/2018 LAURA ANTOINE MD Ot Z87.19 PERSONAL HISTORY OF OTHER DISEASES OF TH 12/05/2018 LAURA ANTOINE MD Ot Z87.442 PERSONAL [...] PAIN 12/07/2018 LAURA ANTOINE MD Ot Z79.52 FPC (CURRENT) USE OF SYSTEMIC STER 12/07/2018 LAURA ANTOINE MD Ot Z79.82 COOK MORNING (CURRENT) USE OF ASPIRIN 12/07/2018 LAURA ATNOINE MD Ot Z85.828 PERSONAL HISTORY OF OTHER MALIGNANT NEOP 12/07/2018 LAURA ANTOINE MD Ot Z87.19 PERSONAL HISTORY OF OTHER DISEASES OF TH 12/07/2018 LAURA ANTOINE MD Ot Z87.442 PERSONAL HISTORY OF URINARY CALCULI 12/07/2018 LAURA ANTOINE MD Ot Z88 .5 ALLERGY [...] OTHER SPECIFIED POSTPROCEDURAL STATES 12/14/2018 MK CRONIN MD, Ot K50.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, UNSPECIFIED, WITHOUT CO 12/21/2018 Ot K50.00 APARTMENT PROPERTY MANAGER HN'S DISEASE OF SMALL INTESTINE WITHO [...] DISEASE, UNSPECIFIED, WITHOUT CO 01/03/2019 JOSEF CHACON FACChris, ALI FACP CCDS [...] DISEASE, UNSPECIFIED, WITHOUT CO 01/11/2019 Ot K50.00 APARTMENT PROPERTY MANAGER HN'S DISEASE OF SMALL INTESTINE WITHO 01/26/2019 JOSEF CHACON FACC, ALI FACP CCDS Ot E87.8 OTH DISORDERS OF ELECTROLYTE AND FLUID B 01/26/2019 JOSEF CHACON FACC, ALI FACP CCDS Ot G47.33 OBSTRUCTIVE SLEEP APNEA (ADULT) (PEDIATR 01/26/2019 JOSEF CHACON FACC, ALI FACP CCDS Ot I48.0 PAROXYSMAL ATRIAL FIBRILLATION 01/26/2019 JOSEF CHACON FACC, ALI FACP CCDS Ot K50.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, UNSPECIFIED, WITHOUT CO 01/26/2019 JOSEF CHACNO FACC, ALI FACP CCDS Ot R06.02 SHORTNESS [...] CHACON FACC, ALI FACP CCDS Ot Z79.01 FPC (CURRENT) USE OF ANTICOAGULANT 01/30/2019 JOSEF CHACON FACC, ALI FACP CCDS Ot Z79.899 OTHER [facility] (CURRENT) DRUG THERAPY 01/30/2019 JOSEF CHACON FACC, ALI FACP CCDS Ot Z87.891 PERSONAL HISTORY OF NICOTINE DEPENDENCE 01/30/2019 JOSEF CHACON FACC, ALI FACP CCDS Ot Z99.89 DEPENDENCE ON OTHER ENABLING MACHINES AN 02/01/2019 JOSEF CHACON FACC, ALEX FACP CCDS Ot E66.9 OBESITY, UNSPECIFIED 02/01/2019 [...] CHACON FACC, ALI FACP CCDS Ot Z79.01 COOK MORNING (CURRENT) USE OF ANTICOAGULANT 02/01/2019 JOSEF CHACON FACC, ALI FACP CCDS Ot Z79.899 OTHER [facility] (CURRENT) DRUG THERAPY 02/01/2019 JOSEF CHACON FACC, [...] MD Ot I25.10 ATHSCL HEART DISEASE OF [place] CORONARY 02/28/2019 MK CRONIN MD Ot J43.9 EMPHYSEMA, UNSPECIFIED 02/28/2019 MK CRONIN MD Ot M25.551 PAIN IN RIGHT HIP 02/28/2019 MK CRONIN MD Ot R91.8 OTHER NONSPECIFIC ABNORMAL FINDING OF SACHIN 02/28/2019 MK CRONIN MD Ot Z98.890 OTHER SPECIFIED POSTPROCEDURAL STATES 03/01/2019 MK CRONIN MD, Ot K50.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, UNSPECIFIED, WITHOUT CO 03/19/2019 MK CRONIN MD, Ot 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 03/19/2019 MK CRONIN MD Ot 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 03/22/2019 MK CRONIN MD Ot I25.10 ATHSCL HEART DISEASE OF [place] CORONARY 03/22/2019 MK CRONIN MD Ot J43.9 [...] DISEASE, UNSPECIFIED, WITHOUT CO 04/03/2019 Ot K50.00 APARTMENT PROPERTY MANAGER HN'S DISEASE OF SMALL INTESTINE WITHO 04/03/2019 MK CRONIN MD Ot K50.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 9 MAXIME'S SYNDROME, UNSPECIFIED 04/04/2019 PRANAY TORO MD, Ot E66. 9 OBESITY, UNSPECIFIED 04/04/2019 PRANAY TORO MD Ot E86. 0 DEHYDRATION 04/04/2019 PRANAY TORO MD, Ot F32. 9 MAJOR DEPRESSIVE DISORDER, SINGLE EPISOD 04/04/2019 PRANAY TORO MD, Ot G47. 33 OBSTRUCTIVE SLEEP APNEA (ADULT) (PEDIATR 04/04/2019 PRANAY TORO MD, Ot I10 ESSENTIAL (PRIMARY) HYPERTENSION 04/04/2019 PRANAY TORO MD, Ot I48. 0 PAROXYSMAL ATRIAL FIBRILLATION 04/04/2019 PRANAY TORO MD, Ot K50.919 CROHN'S DISEASE, UNSPECIFIED, WITH UNSPE 04/04/2019 PRANAY TORO MD, Ot N40. 0 BENIGN PROSTATIC HYPERPLASIA WITHOUT LOW 04/04/2019 PRANAY TORO MD, Ot R00. 0 TACHYCARDIA, UNSPECIFIED 04/04/2019 PRANAY TORO MD, Ot T46.4X5A ADVERSE EFFECT OF BJBWTUPVA-XRSPUOS-DJOL 04/04/2019 PRANAY TORO MD Ot Z68. 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 30 OTHER CERVICAL DISC DEGENERATION, UNSP C 07/31/2019 ALIX HARTMAN MD, Ot M47.812 SPONDYLOSIS W/O MYELOPATHY OR RADICULOPA 07/31/2019 ALIX HARTMAN MD Ot M50. 30 OTHER CERVICAL DISC DEGENERATION, UNSP C 08/03/2019 MK CRONIN MD Ot K50.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, UNSPECIFIED, WITHOUT CO 08/03/2019 MK CRONIN MD, Ot K50.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, UNSPECIFIED, WITHOUT CO 08/03/2019 Ot K50.00 APARTMENT PROPERTY MANAGER HN'S DISEASE OF SMALL INTESTINE WITHO 08/03/2019 MK CRONIN MD, Ot K50.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, UNSPECIFIED, WITHOUT CO 08/03/2019 JOSEF CHACON FAC, ALI FACP CCDS Ot E87.8 OT DISORDERS OF ELECTROLYTE AND FLUID B 08/03/2019 JOSEF CHACON FACC, ALI FACP CCDS Ot G47.33 OBSTRUCTIVE SLEEP APNEA (ADULT) (PEDIATR 08/03/2019 JOSEF CHACON FACC, ALI FACP CCDS Ot I48.0 PAROXYSMAL ATRIAL FIBRILLATION 08/03/2019 JOSEF CHACON FACC, ALI FACP CCDS Ot K50.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, UNSPECIFIED, WITHOUT CO 08/03/2019 JOSEF CHACON FAC, ALI FACP CCDS Ot R06.02 SHORTNESS OF BREATH 08/03/2019 MK CRONIN MD Ot K50.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, UNSPECIFIED, WITHOUT CO 08/03/2019 MK CRONIN MD Ot I25.10 ATHSCL HEART DISEASE OF [place] CORONARY 08/03/2019 MK CRONIN MD Ot J43.9 EMPHYSEMA, UNSPECIFIED 08/03/2019 MK CRONIN MD Ot M25.551 PAIN IN RIGHT HIP 08/03/2019 MK CRONIN MD Ot R91.8 OTHER NONSPECIFIC ABNORMAL FINDING OF [place] 08/03/2019 MK CRONIN MD Ot Z98.890 OTHER SPECIFIED POSTPROCEDURAL STATES 08/03/2019 MK CRONIN MD Ot 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 08/03/2019 EVON JACKMAN PETS AND PET SUPPLIES SALESPERSON Ot G47.33 OBSTRUCTIVE SLEEP APNEA (ADULT) (PEDIATR 08/03/2019 EVON JACKMAN PETS AND PET SUPPLIES SALESPERSON Ot I48.0 PAROXYSMAL ATRIAL FIBRILLATION 08/03/2019 EVON JACKMAN PETS AND PET SUPPLIES SALESPERSON Ot Z79.01 COOK MORNING (CURRENT) USE OF ANTICOAGULANT 08/03/2019 ALIX HARTMAN MD Ot M47.812 SPONDYLOSIS W/O MYELOPATHY OR RADICULOPA 08/03/2019 DEVAN CHACON, ALIX Carroll Ot M50. 30 OTHER CERVICAL DISC DEGENERATION, UNSP C 08/03/2019 TORRES ROBERTSON MD, Ot F32. 9 MAJOR DEPRESSIVE DISORDER, SINGLE EPISOD 08/03/2019 TORRES ROBERTSON MD, Ot G47. 30 SLEEP APNEA, UNSPECIFIED 08/03/2019 TORRES ROBERTSON MD Ot I10 ESSENTIAL (PRIMARY) HYPERTENSION 08/03/2019 TORRES ROBERTSON MD, Ot I48. 91 UNSPECIFIED ATRIAL FIBRILLATION 08/03/2019 TORRES ROBERTSON MD, Ot N20. 0 CALCULUS OF KIDNEY 08/03/2019 TORRES ROBERTSON MD, Ot R10. 9 UNSPECIFIED ABDOMINAL PAIN 08/03/2019 TORRES ROBERTSON MD, Ot Z79. 01 FPC (CURRENT) USE OF ANTICOAGULANT 08/03/2019 TORRES ROBERTSON MD Ot Z82. 49 FAMILY HX OF ISCHEM HEART DIS AND OTH DI 08/03/2019 TORRES ROBERTSON MD Ot Z85.828 PERSONAL HISTORY OF OTHER MALIGNANT NEOP 08/03/2019 TORRES ROBERTSON MD, Ot Z87. 19 PERSONAL HISTORY OF OTHER DISEASES OF TH 08/03/2019 TORRES ROBERTSON MD, Ot Z87.891 PERSONAL HISTORY OF NICOTINE DEPENDENCE 08/03/2019 TORRES ROBERTSON MD, Ot Z88. 5 ALLERGY STATUS TO NARCOTIC AGENT STATUS 08/03/2019 TORRES ROBERTSON MD, Ot Z88. 8 ALLERGY STATUS TO OTH [...] Ot M25.522 PAIN IN LEFT ELBOW 10/09/2019 SYEDA CHACON, SMITHA Ragland Ot M77.12 LATERAL EPICONDYLITIS, LEFT ELBOW 10/09/2019 SYEDA CHACON, SMITHA Ragland Ot Z79.01 COOK MORNING (CURRENT) USE OF ANTICOAGULANT 10/09/2019 SMITHA LANDA MD Ot Z82.49 FAMILY HX OF ISCHEM HEART DIS AND OTH DI 10/09/2019 SMITHA LANDA MD Ot Z85.828 PERSONAL HISTORY OF OTHER MALIGNANT NEOP 10/09/2019 SMITHA LANDA MD Ot Z87.442 PERSONAL HISTORY OF URINARY CALCULI 10/09/2019 SMITHA LANDA MD Ot Z87.891 PERSONAL HISTORY OF NICOTINE DEPENDENCE 10/09/2019 SMITHA LANDA MD Ot Z88.5 ALLERGY STATUS TO NARCOTIC AGENT STATUS 10/09/2019 SMITHA LANDA MD, Ot Z88.8 ALLERGY STATUS TO OT DRUG/MEDS/BIOL SUB 10/09/2019 SMITHA LANDA MD Ot Z90.49 ACQUIRED ABSENCE OF OTHER SPECIFIED PART 10/09/2019 SMITHA LANDA MD Ot Z90.89 ACQUIRED ABSENCE OF OTHER ORGANS 10/09/2019 SMITHA LANDA MD Ot Z99.89 DEPENDENCE ON OTHER ENABLING MACHINES AN 10/09/2019 MK CRONIN MD Ot K50.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, UNSPECIFIED, WITHOUT CO 10/09/2019 MK CRONIN MD Ot K50.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, UNSPECIFIED, WITHOUT CO 10/09/2019 Ot K50.00 APARTMENT PROPERTY MANAGER HN'S DISEASE OF SMALL INTESTINE WITHO 10/09/2019 MK CRONIN MD Ot K50.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, UNSPECIFIED, WITHOUT CO 10/09/2019 JOSEF CHACON FACC, ALI FACP CCDS Ot E87.8 OTH DISORDERS OF ELECTROLYTE AND FLUID B 10/09/2019 JOSFE CHACON FACC, ALI FACP CCDS Ot G47.33 OBSTRUCTIVE SLEEP APNEA (ADULT) (PEDIATR 10/09/2019 JOSEF CHACON FACC, ALI FACP CCDS Ot I48.0 PAROXYSMAL ATRIAL FIBRILLATION 10/09/2019 JOSEF CHACON FACChris, ALI FACP CCDS Ot K50.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, UNSPECIFIED, WITHOUT CO 10/09/2019 JOSEF CHACON FACChris, ALI FACP CCDS Ot R06.02 SHORTNESS OF BREATH 10/09/2019 MK CRONIN MD Ot K50.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, UNSPECIFIED, WITHOUT CO 10/09/2019 MK CRONIN MD Ot I25.10 ATHSCL HEART DISEASE OF [place] CORONARY 10/09/2019 MK CRONIN MD Ot J43.9 [...] ATRIAL FIBRILLATION 10/09/2019 EVON JACKMAN Ot Z79.01 C[place] MORNING (CURRENT) USE OF ANTICOAGULANT 10/09/2019 ALIX HARTMAN [...] 10/30/2019 VINH HERNANDEZ DO Ot Z79. 01 [place] MORNING (CURRENT) USE OF ANTICOAGULANT 10/30/2019 VINH HERNANDEZ [...] 11/01/2019 VINH HERNANDEZ DO Ot Z79. 01 [place] MORNING (CURRENT) USE OF ANTICOAGULANT 11/01/2019 VINH HERNANDEZ [...] 11/05/2019 VINH HERNANDEZ DO Ot Z79. 01 FPC (CURRENT) USE OF ANTICOAGULANT 11/05/2019 VINH HERNANDEZ DO Ot Z85.828 PERSONAL HISTORY OF OTHER MALIGNANT NEOP 11/05/2019 VINH HERNANDEZ DO Ot Z87.442 PERSONAL HISTORY OF URINARY CALCULI 11/05/2019 VINH HERNANDEZ DO Ot Z87.891 PERSONAL HISTORY OF NICOTINE DEPENDENCE 11/05/2019 VINH HERNANDEZ DO Ot Z88. 5 ALLERGY STATUS TO NARCOTIC AGENT STATUS 11/05/2019 VINH HERNANDEZ DO Ot Z88. 8 ALLERGY STATUS TO OT DRUG/MEDS/BIOL SUB 11/05/2019 VINH HERNANDEZ DO Ot Z90. 49 ACQUIRED ABSENCE OF OTHER SPECIFIED PART 11/05/2019 VINH HERNANDEZ DO Ot Z90. 89 ACQUIRED ABSENCE OF OTHER ORGANS 11/05/2019 VINH HERNANDEZ DO Ot Z99. 89 DEPENDENCE ON OTHER ENABLING MACHINES AN 12/22/2019 TAMARA PATTON MD Ot F32.9 MAJOR DEPRESSIVE DISORDER, SINGLE EPISOD 12/22/2019 TAMARA PATTON MD Ot G47.30 SLEEP APNEA, UNSPECIFIED 12/22/2019 TAMARA PATTON MD Ot I1 0 ESSENTIAL (PRIMARY) HYPERTENSION 12/22/2019 TAMARA PATTON MD Ot I48.91 UNSPECIFIED ATRIAL FIBRILLATION 12/22/2019 TAMARA PATTON MD Ot M54.5 LOW BACK PAIN 12/22/2019 TAMARA PATTON MD Ot N20.0 CALCULUS OF KIDNEY 12/22/2019 TAMARA PATTON MD Ot Z79.01 COOK MORNING (CURRENT) USE OF ANTICOAGULANT 12/22/2019 TAMARA PATTON MD Ot Z82.49 FAMILY HX OF ISCHEM HEART DIS AND OTH DI 12/22/2019 TAMARA PATTON MD Ot Z85.828 PERSONAL HISTORY OF OTHER MALIGNANT NEOP 12/22/2019 TAMARA PATTON MD Ot Z87.891 PERSONAL HISTORY OF NICOTINE DEPENDENCE 12/22/2019 TAMARA PATTON MD, Ot Z88.5 ALLERGY STATUS TO NARCOTIC AGENT STATUS 12/22/2019 TAMARA PATTON MD, Ot Z88.8 ALLERGY STATUS TO OTH DRUG/MEDS/BIOL SUB 12/22/2019 TAMARA PATTON MD Ot Z99.89 DEPENDENCE ON OTHER ENABLING MACHINES AN 12/25/2019 MK CRONIN MD Ot 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 12/26/2019 TAMARA PATTON MD, Ot F32.9 MAJOR DEPRESSIVE DISORDER, SINGLE EPISOD 12/26/2019 TAMARA PATTON MD, Ot G47.30 SLEEP APNEA, UNSPECIFIED 12/26/2019 TAMARA PATTON MD, Ot I1 0 ESSENTIAL (PRIMARY) HYPERTENSION 12/26/2019 TAMARA PATTON MD Ot I48.91 UNSPECIFIED ATRIAL FIBRILLATION 12/26/2019 TAMARA PATTON MD, Ot M54.5 LOW BACK PAIN 12/26/2019 TAMARA PATTON MD, Ot N20.0 CALCULUS OF KIDNEY 12/26/2019 TAMARA PATTON MD Ot Z79.01 FPC (CURRENT) USE OF ANTICOAGULANT 12/26/2019 TAMARA PATTON MD, Ot Z82.49 FAMILY HX OF ISCHEM HEART DIS AND OTH DI 12/26/2019 TAMARA PATTON MD, Ot Z85.828 PERSONAL HISTORY OF OTHER MALIGNANT NEOP 12/26/2019 TAMARA PATTON MD, Ot Z87.891 PERSONAL HISTORY OF NICOTINE DEPENDENCE 12/26/2019 TAMARA PATTON MD, Ot Z88.5 ALLERGY STATUS TO NARCOTIC AGENT STATUS 12/26/2019 TAMARA PATTON MD Ot Z88.8 ALLERGY STATUS TO OTH DRUG/MEDS/BIOL SUB 12/26/2019 TAMARA PATTON MD Ot Z99.89 DEPENDENCE ON OTHER ENABLING MACHINES AN 12/26/2019 NEHEMIAS SOFIA MD Ot E11.9 TYPE 2 DIABETES MELLITUS WITHOUT COMPLIC 12/26/2019 NEHEMIAS SOFIA MD Ot 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, UNSPECIFIED 12/26/2019 NEHEMIAS SOFIA MD Ot E66.0 1 MORBID (SEVERE) OBESITY DUE TO EXCESS CA 12/26/2019 NEHEMIAS SOFIA MD Ot E78.5 HYPERLIPIDEMIA, UNSPECIFIED 12/26/2019 NEHEMIAS SOFIA MD Ot F32.9 MAJOR DEPRESSIVE DISORDER, SINGLE EPISOD 12/26/2019 KIMBERLYN CHACON, NEHEMIAS Murphy Ot G47.3 3 OBSTRUCTIVE SLEEP APNEA (ADULT) (PEDIATR 12/26/2019 NEHEMIAS SOFIA MD Ot I10 ESSENTIAL (PRIMARY) HYPERTENSION 12/26/2019 NEHEMIAS SOFIA MD Ot K50.9 0 CROHN'S DISEASE, UNSPECIFIED, WITHOUT CO 12/26/2019 NEHEMIAS SOFIA MD Ot N20.1 CALCULUS OF URETER 12/26/2019 NEHEMIAS SOFIA MD Ot N40.0 BENIGN PROSTATIC HYPERPLASIA WITHOUT LOW 12/26/2019 NEHEMIAS SOFIA MD Ot Z11.2 ENCOUNTER FOR SCREENING FOR OTHER BACTER 12/26/2019 NEHEMIAS SOFIA MD Ot Z68.3 6 BODY MASS INDEX (BMI) 36.0-36.9, ADULT 12/26/2019 NEHEMIAS SOFIA MD Ot Z79.0 1 C[place] MORNING (CURRENT) USE OF ANTICOAGULANT 12/26/2019 NEHEMIAS SOFIA MD Ot Z79.8 99 OTHER [place] (CURRENT) DRUG THERAPY 12/26/2019 NEHEMIAS SOFIA MD Ot Z87.8 91 PERSONAL HISTORY OF NICOTINE DEPENDENCE 12/26/2019 NEHEMIAS SOFIA MD Ot Z01.8 18 ENCOUNTER FOR OTHER PREPROCEDURAL EXAMIN 12/27/2019 NEHEMIAS SOFIA MD Ot E11.9 TYPE 2 DIABETES MELLITUS WITHOUT COMPLIC 12/27/2019 NEHEMIAS SOFIA MD Ot 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, UNSPECIFIED 12/27/2019 NEHEMIAS SOFIA MD Ot E66.0 1 MORBID (SEVERE) OBESITY DUE TO EXCESS CA 12/27/2019 NEHEMIAS SOFIA MD Ot E78.5 HYPERLIPIDEMIA, UNSPECIFIED 12/27/2019 NEHEMIAS SOFIA MD, Ot F32.9 MAJOR DEPRESSIVE DISORDER, SINGLE EPISOD 12/27/2019 NEHEMIAS SOFIA MD Ot G47.3 3 OBSTRUCTIVE SLEEP APNEA (ADULT) (PEDIATR 12/27/2019 NEHEMIAS SOFIA MD Ot I10 ESSENTIAL (PRIMARY) HYPERTENSION 12/27/2019 NEHEMIAS SOFIA MD Ot K50.9 0 CROHN'S DISEASE, UNSPECIFIED, WITHOUT CO 12/27/2019 NEHEMIAS SOFIA MD, Ot N20.1 CALCULUS OF URETER 12/27/2019 NEHEMIAS SOFIA MD, Ot N40.0 BENIGN PROSTATIC HYPERPLASIA WITHOUT LOW 12/27/2019 NEHEMIAS SOFIA MD, Ot Z11.2 ENCOUNTER FOR SCREENING FOR OTHER BACTER 12/27/2019 NEHEMIAS SOFIA MD, Ot Z68.3 6 BODY MASS INDEX (BMI) 36.0-36.9, ADULT 12/27/2019 NEHEMIAS SOFIA MD, Ot Z79.0 1 C[place] MORNING (CURRENT) USE OF ANTICOAGULANT 12/27/2019 NEHEMIAS SOFIA MD Ot Z79.8 99 OTHER [place]ORN[place] (CURRENT) DRUG THERAPY 12/27/2019 NEHEMIAS SOFIA MD, Ot Z87.8 91 PERSONAL HISTORY OF NICOTINE DEPENDENCE 12/28/2019 NEHEMIAS SOFIA MD, Ot N20.1 CALCULUS OF URETER 12/28/2019 NEHEMIAS SOFIA MD Ot Z98.8 90 OTHER SPECIFIED POSTPROCEDURAL STATES 12/29/2019 NEHEMIAS SOFIA MD, Ot N20.1 CALCULUS OF URETER 12/29/2019 NEHEMIAS SOFIA MD Ot Z98.8 90 OTHER SPECIFIED POSTPROCEDURAL STATES 01/01/2020 TAMARA PATTON MD Ot F32.9 MAJOR DEPRESSIVE DISORDER, SINGLE EPISOD 01/01/2020 TAMARA PATTON MD Ot G47.30 SLEEP APNEA, UNSPECIFIED 01/01/2020 TAMARA PATTON MD Ot I1 0 ESSENTIAL (PRIMARY) HYPERTENSION 01/01/2020 TAMARA PATTON MD Ot I48.91 UNSPECIFIED ATRIAL FIBRILLATION 01/01/2020 TAMARA PATTON MD Ot M54.5 LOW BACK PAIN 01/01/2020 TAMARA PATTON MD, Ot N20.0 CALCULUS OF KIDNEY 01/01/2020 TAMARA PATTON MD Ot Z79.01 [place] MORNING (CURRENT) USE OF ANTICOAGULANT 01/01/2020 TAMARA PATTON MD Ot Z82.49 FAMILY HX OF ISCHEM HEART DIS AND OTH DI 01/01/2020 TAMARA PATTON MD Ot Z85.828 PERSONAL HISTORY OF OTHER MALIGNANT NEOP 01/01/2020 TAMARA PATTON MD Ot Z87.891 PERSONAL HISTORY OF NICOTINE DEPENDENCE 01/01/2020 TAMARA PATTON MD, Ot Z88.5 ALLERGY STATUS TO NARCOTIC AGENT STATUS 01/01/2020 TMAARA PATTON MD, Ot Z88.8 ALLERGY STATUS TO OTH DRUG/MEDS/BIOL SUB 01/01/2020 TAMARA PATTON MD Ot Z99.89 DEPENDENCE ON OTHER ENABLING MACHINES AN 01/17/2020 NEHEMIAS SOFIA MD, Ot N20.1 CALCULUS OF URETER 01/17/2020 NEHEMIAS SOFIA MD, Ot Z98.8 90 OTHER SPECIFIED POSTPROCEDURAL STATES 02/28/2020 EVON JACKMAN [employer]S [employer]PPLIES SALESPERSON Ot G47.33 OBSTRUCTIVE SLEEP APNEA (ADULT) (PEDIATR 02/28/2020 EVON JACKMAN [employer]PPLIES SALESPERSON Ot I48.0 PAROXYSMAL ATRIAL FIBRILLATION 02/28/2020 EVON JACKMAN [employer]PPLIES SALESPERSON Ot Z79.01 COOK MORNING (CURRENT) USE OF ANTICOAGULANT Procedures Code Description Performed By Per keyla On [id number] RE STORATION OF CARDIAC RHYTHM, SINGLE 11/17/2018 [...] OF GROWTH Isolated NRG Bacterial blood culture [id number] NRG Complete urinalysis with reflex to cultu [...] complete blood count (he mogram) panel - 04/30/19 12:08 Blood leukocytes automated count (number/volume) 6.3 [...] urinalysis with reflex to culture NO NRG Methicillin resistant Staphylococcus aur eus (MRSA) screening culture - 12/26/19 07:15 Methicillin resistant Staphylococcus aureus (MRSA) scr eening culture NEG NRG Encounters ACCT No. Visit Date/Time Discharge Status Pt. Type Provider Facility Loc./Unit Complaint [id number] 04/14/2020 17:41:00 19:18:00 DIS Emergency ABDI CHACON, TAMARA Mcpherson [facility] ER FS CHEST/THROAT SORENESS [id number] 12/26/2019 06:59:00 12:35:00 DIS Outpatient NEHEMIAS SOFIA MD [facility] SDC LEFT URETERAL STONE [id number] 12/25/2019 05:33:00 12:19:00 DIS Outpatient NEHEMIAS SOFIA MD [facility] PREOP LEFT URETERAL STONE [id number] 12/24/2019 12:19:00 23:59:59 CLS Outpatient NEHEMIAS SOFIA MD [facility] RAD LT URETRAL STONE [id number] 12/22/2019 11:12:00 12:27:00 DIS Emergency ABDI CHACON, TAMARA Mcpherson [facility] ER FS LOWER BACK PAIN,BLOODY URINE [id number] 10/30/2019 15:39:00 16:45:00 DIS Emergency VINH HERNANDEZ DO [facility] ER FS BLOOD PRESSURE HIGH [id number] 10/09/2019 10:33:00 11:45:00 DIS Emergency SMITHA LANDA MD [facility] ER FS LT ARM PAIN [id number] 08/03/2019 11:53:00 13:50:00 DIS Emergency MARCELO CHACON, TORRES Lovelace [facility] ER FS RT FLANK/ABD PAIN [id number] 07/09/2019 09:14:00 23:59:59 CLS Outpatient DEVAN CHACON, ALIX Carroll [facility] ORTHO [id number] 06/19/2019 14:00:00 14:00:00 CAN Preadmit MK CRONIN MD [facility] RAD ACUTE PAIN IN RIGHT JULIO CESAR ULDER [id number] 06/09/2019 18:10:00 19:48:00 DIS Emergency NINA EDWARDS DO [facility] ER FS RT ARM PAIN [id number] 04/30/2019 10:00:00 23:59:59 CLS Preadmit MK CRONIN MD Via [facility] CROHNS DISEASE [id number] 2019 10:01:00 23:59:59 CLS Outpatient EVON JACKMAN [facility] LAB I48.0 [id number] 04/03/2019 12:45:00 10:34:00 DIS Inpatient PRANAY TORO MD [facility] 4TH PALPS PAF [id number] 03/19/2019 09:34:00 23:59:59 CLS Outpatient MK CRONIN MD [facility] CROHNS DISEASE [id number] 02/27/2019 08:10:00 23:59:59 CLS Outpatient MK CRONIN MD [facility] RAD FS CHEST WALL PAIN [id number] 02/05/2019 09:15:00 23:59:59 CLS Outpatient MK CRONIN MD [facility] CROHNS DISEASE [id number] 01/30/2019 11:50:00 18:45:00 DIS Outpatient ALEX BAHENA MD, FACC, FACP CC DS [facility] CATH CHEST PAIN, PAF,SOB [id number] 01/02/2019 07:46:00 23:59:59 CLS Outpatient ALEX BAHENA MD, FACCP CC DS [facility] CARD PAF [id number] 12/25/2018 09:39:00 23:59:59 CLS Outpatient MK CRONIN MD [facility] CROHNS DISEASE [id number] 12/05/2018 08:41:00 11:54:00 DIS Emergency ELINA CHACON, LAURA Velazquez [facility] ER FS CHEST PAIN; ABD PAIN [id number] 11/16/2018 16:30:00 13:26:00 DIS Inpatient CORTEZ CHACON, PRANAY Velazquez [facility] 4TH UTI,SMALL BOWEL OBSTRUC TION,SEVERE SEPSIS [id number] 11/14/2018 18:51:00 00:46:00 DIS Emergency LUIZA JUÁREZ [facility] ER CHEST PAINS [id number] 11/13/2018 09:40:00 23:59:59 CLS Outpatient ROSEANNE CHACON, MK murphy [facility] CROHNS DISEASE [id number] 12/20/2018 12:12:00 Document Registration
== END 2020-04-14 19:18 | disposition home or self-care (01) ==
LOC: EDUNIT# 17:40 → ER FS 17:41
DX: R05 Cough (principal); G47.33 Obstructive sleep apnea (adult) (pediatric); I10 Essential (primary) hypertension; I48.91 Unspecified atrial fibrillation; F32.9 Major depressive disorder, single episode, unspecified; Z88.8 Allergy status to other drugs, medicaments and biological substances; Z88.5 Allergy status to narcotic agent; Z87.891 Personal history of nicotine dependence; Z85.828 Personal history of other malignant neoplasm of skin
CPT/HCPCS: 71046

== ENCOUNTER → 2020-10-13 | Outpatient (CLI) | payer MEDICARE, OTHER ==
[~2020-10-13] MED LIST changes: -MONT10TA26 PO; +MONT10TA97 PO; -NADO40TA PO; +NADO40TA2 PO; -PANT40TA3 PO; +PANT40TA52 PO
--- NOTE | 2020-10-13 14:21 | Diagnostic Imaging Report ---
Procedure: CT cervical spine without contrast. Technique: Multiple contiguous axial images were obtained through the cervical spine without the use of intravenous contrast. Sagittal and coronal reformations were then performed. Auto Exposure Controls were utilized during the CT exam to meet ALARA standards for radiation dose reduction. Date: October 13, 2020. Indication: 65-year-old male, followup cervical fusion. Comparison: Radiographs of the cervical spine July 09, 2019. Findings: There is anterior cervical spinal fusion hardware spanning C4-C7. The hardware appears intact. There is disc spacer material spanning the postoperative levels. There is no abnormal lucency surrounding the fixation screws. There is no identified facet joint subluxation or dislocation. There is straightening of the normal cervical lordosis. There are mild left facet degenerative changes at C5-C6 and C6-C7. There is mild disc height loss at C3-C4. There is mild disc height loss at C7-T1. CT limited for assessment of disc pathology as well as additional nonbony causes of pathology in the spinal canal. There is no identified aggressive bone destruction. There is no acute fracture of the cervical spine. The visualized portions of the lung apices are clear. There are bilateral carotid vascular calcifications. There is retropharyngeal course of the carotid arteries bilaterally. Impression: 1. Anterior spinal fusion hardware spanning C4-C7 without apparent complication. 2. Mild disc degenerative changes at C3-C4 and C7-T1. Mild left facet degenerative changes at C5-C6 and C6-C7. Dictated by: Dictated on workstation # [id number]
== END ==
LOC: RAD 13:03
PROVIDERS: ATTEND Physician Assistant
DX: M47.812 Spondylosis without myelopathy or radiculopathy, cervical region (principal); M47.813 Spondylosis without myelopathy or radiculopathy, cervicothoracic region; M43.22 Fusion of spine, cervical region
CPT/HCPCS: 72125

== ENCOUNTER 2021-05-28 07:31 | Emergency (ER) | payer MEDICARE, OTHER ==
[~2021-05-28] VITALS: Ht 180.3 cm; Wt 125.2 kg
[~2021-05-28 07:31] MED LIST changes: -ARIP10TA17 PO; +ARIP10TA55 PO; +FOLI0.4T6 PO; +MONT10TA32 PO; -MONT10TA97 PO; -SULF1TAB35 PO; +SULF1TAB38 PO
--- OUTSIDE RECORDS SUMMARY | 2021-05-28 07:36 | XMS REPORT | Encounter Summary ---
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 above. Freeze thaw cycles of 20s per antony lication were undertaken x 2 to actinic keratoses in the abovementioned areas These lesions represent an acute, progressive flare of a distinctive chronic ill ness: actinic skin damage. Actinic cutaneous damage constitutes the skin manife stations of chronic exposure to UVA and UVB over years. This is a chronic condit ion and confers risk for progression to non-melanoma cutaneous malignancies as w ell as risk for development of melanoma. Today's diagnosed actinic keratoses rep resent an acute exacerbation of the above mentioned. The presence of actinic keratosis and chronic actinic skin damage confers signif icant increased risk, assisted, of both non-melanoma cutaneous malignancies lik e basal cell carcinoma and squamous cell carcinoma, as well as melanoma and othe r less common cutaneous malignancies like Ramona cell carcinoma. This increased risk informs my recommendations for follow up total body skin exams for the pur poses of skin malignancy screening as well as my recommendations for changed pat ient behaviors regarding sun avoidance and self skin monitoring. I have provide d written instructions on these recommendations to the patient today. Due to the COVID-19 public health emergency, we are forgoing written consent in order to protect patients from surface contact with potential fomites which coul d facilitate virus transmission. Eczematous dermatitis Multiple benign nevi Overview Trunk and extremities These lesions are chronic and stable. Today's evaluation was conducted by me in order to differentiate these lesions from concerning pigmented lesions such as dysplastic nevi or malignant melanoma as well as non-melanoma cutaneous malignan cies. We will continue to monitor these lesions closely in order to differentiate thes e chronic lesions from the above mentioned malignancies or pre-malignant lesions . If any changes should occur in the future, he is encouraged to have the lesio n(s) rechecked at our office. Neoplasm of uncertain behavior of skin Current Assessment & Plan Multiple Shave Biopsies today: 1. Left upper proximal extremity extensor-R/O SCC 2. right dorsal hand- R/O SCC 3. Right thigh-R/O SCC The areas of involved skin were anesthetized with buffered 1% lidocaine with 1:1 00,000 parts epinephrine. After the areas were tested for anesthesia, derm-a-bl thao scalpel was used to perform shave biopsies. Minimal subsequent bleeding con trolled with Aluminum Chloride and area was dressed with petrolatum jelly and a bandage. I have separately placed an order for a unique histology evaluation to be undert aken in order to further elucidate the nature of the concerning lesion for which the biopsy procedure was undertaken today. Written and verbal wound care instructions were provided by the medical assistan t at time of discharge. Further, written communication regarding the risk of morbidity stemming from alejandro atment of cutaneous malignancy, for which we are testing today, was provided to the patient at the time of discharge. Due to the COVID-19 public health emergency, we are forgoing written consent in order to protect patients from surface contact with potential fomites which coul d facilitate virus transmission. Due to the COVID-19 public health emergency, we are forgoing written consent in order to protect patients from surface contact with potential fomites which coul d facilitate virus transmission. Personal history of skin cancer Overview BCC R hand 06/2020 Pt can't recall name BCC L forearm 06/2020 Pt can't recall name BCC R neck 08/2018 Pt can't recall name 4. SCC Right dorsal hand Dr. Randall Fong December 2020 5. SCC Right forearm Dr. Judge February 26, 2021 exc 6. SCC Left forearm Dr. Judge exc March 12, 2021 Current Assessment & Plan NER Individuals who have had NMSC are at significant increased risk for the developm ent of additional Non-Melanoma Skin cancer as well as increased risk for the dev elopment of cutaneous malignant melanoma. The actinic damage that has lead the previous NMSC in this case constitutes a ch ronic condition that confers high relative risk for additional NMSC and MM as ab ove. I discussed this increased risk, extensively, with the patient and emphasized th e need for the patient to perform regular self skin checks as well as need for t he patient to follow up regularly with a full time babysitter for skin checks. The pat ient. Further, written education materials on changing lesions and instructions on how to perform self skin exams were provided to the patient at discharge hannah figueredo. 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 It refers to the mottled erythema, thinning of the skin, and discoloration of th e skin that ensues from chronic exposure to the sun. Often, this rash can be itchy. Sometimes it carlson. Frequently there are no sym ptoms at all. When present, Poikiloerma of [place] is a chronic, persistent condition precipit ated by long-term prior exposure to UV radiation that suggests increased risk of NMSC and MM at this site. Continue to monitor given increased risk of NMSC and MM and recommended consiste nt application of SPF to mitigate skin cancer risk. Stucco keratoses Overview BLE Current Assessment & Plan Benign keratoses, minimal malignant potential chronic Commonly mistaken for actinic keratoses due to overlap with gross clinical appea eugenia of AK's No e/o actinic damage in the involved locations this case. Continue to monitor for actionable actinic damage Verruca vulgaris Overview L plantar 5th digit and 3rd digit Current Assessment & Plan Left plantar 5th digit, 3rd digit After informed verbal consent, including a discussion of risks (lesion recurrenc e, blistering, pain, erythema, crusting, infection, bleeding, skin pigment browne es, lesion recurrence, and potential necessity for multiple liquid nitrogen heidi tments) and benefits, in addition to alternative treatments like topical medicat ions or observation, liquid nitrogen cryotherapy was applied to 3 verruca lesion (s), as above. Due to the COVID-19 public health emergency, we are forgoing written consent in order to protect patients from surface contact with potential fomites which coul d facilitate virus transmission. Return in about 6 months (around 09/29/2021) for TBSE, history of NMSC, TBSE h/o AK's. documented in this encounter Miscellaneous Notes * Assessment & Plan Note - Luis Manuel Greco MA - 03/30/2021 12:43 PM CDT Associated Problem(s): Neoplasm of uncertain behavior of skin Multiple Shave Biopsies today: 1. Left upper proximal extremity extensor-R/O SCC 2. right dorsal hand- R/O SCC 3. Right thigh-R/O SCC The areas of involved skin were anesthetized with buffered 1% lidocaine with 1:1 00,000 parts epinephrine. After the areas were tested for anesthesia, derm-a-bl thao scalpel was used to perform shave biopsies. Minimal subsequent bleeding con trolled with Aluminum Chloride and area was dressed with petrolatum jelly and a bandage. I have separately placed an order for a unique histology evaluation to be undert aken in order to further elucidate the nature of the concerning lesion for which the biopsy procedure was undertaken today. Written and verbal wound care instructions were provided by the medical assistan t at time of discharge. Further, written communication regarding the risk of morbidity stemming from alejandro atment of cutaneous malignancy, for which we are testing today, was provided to the patient at the time of discharge. Due to the COVID-19 public health emergency, we are forgoing written consent in order to protect patients from surface contact with potential fomites which coul d facilitate virus transmission. Due to the [facility] public [facility], we are forgoing written consent in order to protect patients from surface contact with potential fomites which coul d facilitate virus transmission. * Assessment & Plan Note - Luis Manuel Greco MA - 03/30/2021 12:41 PM CDT Associated Problem(s): Verruca vulgaris Left plantar 5th digit, 3rd digit After informed verbal consent, including a discussion of risks (lesion recurrenc e, blistering, pain, erythema, crusting, infection, bleeding, skin pigment browne es, lesion recurrence, and potential necessity for multiple liquid nitrogen heidi tments) and benefits, in addition to alternative treatments like topical medicat ions or observation, liquid nitrogen cryotherapy was applied to 3 verruca lesion (s), as above. Due to the COVID-19 public health emergency, we are forgoing written consent in order to protect patients from surface contact with potential fomites which coul d facilitate virus transmission. * Assessment & Plan Note - Luis Manuel Greco MA - 03/30/2021 12:41 PM CDT Associated Problem(s): AK (actinic keratosis) righ hand, L temples, right forearm, left forearm After informed verbal consent, including a discussion of risks (blistering, pain , erythema, crusting, infection, bleeding, skin pigment changes, lesion recurren ce and potential necessity of multiple liquid nitrogen treatments) and benefits, in addition to alternative treatments like field therapy, liquid nitrogen cryot herapy was applied to 15 lesion(s), as above. Freeze thaw cycles of 20s per antony lication were undertaken x 2 to actinic keratoses in the abovementioned areas These lesions represent an acute, progressive flare of a distinctive chronic ill ness: actinic skin damage. Actinic cutaneous damage constitutes the skin manife stations of chronic exposure to UVA and UVB over years. This is a chronic condit ion and confers risk for progression to non-melanoma cutaneous malignancies as w ell as risk for development of melanoma. Today's diagnosed actinic keratoses rep resent an acute exacerbation of the above mentioned. 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 This increased risk informs my recommendations for follow up total body skin exams for the pur poses of skin malignancy screening as well as my recommendations for changed pat ient behaviors regarding sun avoidance and self skin monitoring. I have provide d written instructions on these recommendations to the patient today. Due to the COVID-19 public health emergency, we are forgoing written consent in order to protect patients from surface contact with potential fomites which coul d facilitate virus transmission. * Assessment & Plan Note - Luis Manuel Greco MA - 03/30/2021 12:38 PM CDT Associated Problem(s): Stucco keratoses Benign keratoses, minimal malignant potential chronic Commonly mistaken for actinic keratoses due to overlap with gross clinical appea eugenia of AK's No e/o actinic damage in the involved locations this case. Continue to monitor for actionable actinic damage * Assessment & Plan Note - Luis Manuel Greco MA - 03/30/2021 12:38 PM CDT Associated Problem(s): Personal history of skin cancer NER Individuals who have had NMSC are at significant increased risk for the developm ent of additional Non-Melanoma Skin cancer as well as increased risk for the dev elopment of cutaneous malignant melanoma. The actinic damage that has lead the previous NMSC in this case constitutes a ch ronic condition that confers high relative risk for additional NMSC and MM as ab ove. I discussed this increased risk, extensively, with the patient and emphasized th e need for the patient to perform regular self skin checks as well as need for t he patient to follow up regularly with a full time babysitter for skin checks. The pat ient. Further, written education materials on changing lesions and instructions on how to perform self skin exams were provided to the patient at discharge tod ay. documented in this encounter Plan of Treatment Care Team Description Date Type Specialty 06/10/2021 Nurse Only Dermatology Forrest Pereira MD [facility] [address] [address] [phone] 06/15/2021 Procedure visit Dermatology documented as of this encounter Procedures Comments Procedure Name Priority Date/Time Associated Diag nosis TISSUE PATHOLOGY OR Routine 03/30/2021 Neoplasm o f uncertain BIOPSY 12:57 PM CDT behavior of skin documented in this encounter Results * Tissue Pathology or Biopsy (03/30/2021 12:57 PM CDT) Specimen Tissue Narrative Performed At [facility] SURGICAL PATHOLOGY REPORT Patient Name: DONOVAN WOO /Age/Sex:1955 (Age: 65) /M MR N: [id number] Specimen #: [id number] ##################MICROSCOPIC INTERPRET ATION################## A. Right dorsal hand, shave: - Superficially invasive well-dif ferentiated squamous cell carcinoma. - Deep margin positive. B. Left upper extremity proximal exte nsor, shave: - Well-differentiated squamous ce ll carcinoma. - Deep margin positive. C. Right thigh, shave: - Surface of atypical sebaceous n eoplasm; see comment. - Recommend excision. Comment: This could be a sebaceous patricia quirino/sebaceoma or sebaceous carcinoma. The neoplasm has an unusual intraepidermal growth pattern. Complete excision is recommended for definitive classificati on. Multiple deeper levels have been examined. Part C has been reviewed by a second board-certifi ed dermatopathologist in intradepartmental consultation, who con curs with the above diagnosis. Winter Arthur MD Report Electronically Signed Out [facility]: 04/01/21 MANE ALBERTO [place] Test performed by [facility] [address] [place] [address]. CLIA # [id number] Clinical History/Impression: A/B/C. Right dorsal hand/left upper ext remity proximal extensor/right thigh: neoplasm of uncertain behavior of skin; r/o squamous cell carcinoma. Specimen Labeled: A: Right dorsal hand B: Left upper extremity proximal extens or C: Right thigh Gross Description: A. "Right dorsal hand"; neutral buffe red formalin; shave; measuring 1.1 x 0.9 x 0.15 cm; trisected; all in cassette ( A1). B. "Left upper extremity proximal ext ensor"; neutral buffered formalin; shave; measuring 1.2 x 0.9 x 0.15 cm with a 0. 6 x 0.45 cm crusted lesion; trisected; all in cassette (B1). C. "Right thigh"; neutral buffered fo rmalin; shave; measuring 1.0 x 0.65 x 0.1 cm; trisected; all in cassette (C1). (KO) ko ###END OF REPORT### Performing Organization Address City/State/ZIP Code P cheryl Number [facility] [address] 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
--- OUTSIDE RECORDS SUMMARY | 2021-05-28 07:36 | XMS REPORT | Encounter Summary ---
Author Author [facility] Organization [facility] Address Unknown Phone Unavailable Care Team Providers Care Patient Attendant Name Role Phone Orville Willard MD PCP Reason for Visit * Reason Comments Crohn's Disease Encounter Details Care Team Description [place] [address] [place], [place] [id number] Crohn's disease of both small and large intestine without complication (HCC) (Primary Dx) 04/30/2021 Office Visit [facility] [address] [place], [place] [id number] Social History Date Tobacco Use Types Packs/Day Years Used Started: 11/26/2014 Former Smoker Cigarettes 0.5 10 Smokeless Tobacco: Never Used Comments Alcohol Use Standard Drinks/Week No 0 (1 standard drink = 0.6 o z pure alcohol) Sex Assigned at Date Recorded 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 : 1955 PRIMARY CARE PROVIDER: Orville Willard MD CONSULTING PHYSICIAN: [place] DATE OF VISIT: April 30, [address] Orville Willard MD, I had the pleasure of evaluating your patient. My full ev aluation follows: CHIEF COMPLAINT: Chief Complaint Patient presents with Crohn's Disease HISTORY OF PRESENT ILLNESS: Mr. Woo was seen in the office today for follow-up regarding Crohn's diseas e. He was diagnosed about 26years ago and has undergone ileocolonic resectio n and has been on Remicade for last 16 years. He was also on Imuran but that wa s stopped last visit because of new diagnosis of multiple skin cancers. Hisl astcolonoscopy inFebruary 2019was negative for any disease. Random colon b iopsies were negative for any dysplasia and he was told to repeat in 3 years. His Crohn's symptoms are doing well and denies any abdominal pain, rectal bleedi ng, diarrhea etc. Concerningly recently he developed multiple skin lesions and many of those lesio ns turned out to be basal cell carcinoma as well as squamous cell carcinoma whic h he got resected. His main complaint involves muscle cramps in both upper and lower extremities. His potassium and magnesium levels were normal recently and he has been taking m agnesium supplements along with calcium. REVIEW OF SYSTEMS: Review of Systems Constitutional: Positive for malaise/fatigue. HENT: Positive for nosebleeds and sore throat. Eyes: Negative. Respiratory: Positive for shortness of breath. Cardiovascular: Positive for chest pain. Gastrointestinal: Positive for heartburn. Genitourinary: Negative. Musculoskeletal: Positive for back pain and joint pain. Muscle cramps Skin: Positive for rash. Neurological: Positive for tremors. Endo/Heme/Allergies: Bruises/bleeds easily. Psychiatric/Behavioral: Positive for depression. The patient is nervous/anxious and has insomnia. PROBLEM LIST: Patient Active Problem List Diagnosis SNOMED CT(R) Abdominal pain ABDOMINAL PAIN Nephrolithiasis KIDNEY STONE Regional enteritis (HCC) CROHN'S DISEASE Hematuria BLOOD IN URINE Chronic cough CHRONIC COUGH Post-nasal drip POSTERIOR RHINORRHEA Dyspnea DYSPNEA Snoring SNORING Witnessed apneic spells APNEA Excessive daytime sleepiness DAYTIME SOMNOLENCE Continuous nicotine dependence NICOTINE DEPENDENCE TASH on CPAP OBSTRUCTIVE SLEEP APNEA SYNDROME Wheezing WHEEZING Crohn disease (HCC) CROHN'S DISEASE Eczematous dermatitis ECZEMA Personal history of skin cancer HISTORY OF MALIGNANT NEOPLASM OF SKIN Multiple benign nevi MULTIPLE BENIGN MELANOCYTIC NEVI 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 ARIPiprazole (ABILIFY) 10 MG tablet Take by mouth. (Patient taking differen tly: Take 10 mg by mouth daily. ) 30 CIALIS 5 mg tablet daily as needed. 5 cyanocobalamin (VITAMIN B-12) 1000 MCG tablet Take 1,000 mcg by mouth daily. diphenoxylate-atropine (LOMOTIL) 2.5-0.025 mg per tablet TAKE 2 TABLETS BY M OUTH UP TO FOUR TIMES DAILY 240 tablet 3 doxazosin (CARDURA) 1 MG tablet Take 1 mg by mouth nightly. INFLIXIMAB (REMICADE IV) Infuse 300 mg into a venous catheter. EVERY 6 WEEKS lisinopril-hydrochlorothiazide (PRINZIDE,ZESTORETIC) 20-25 mg per tablet Gurinder e by mouth. 90 metoprolol succinate 200 mg CSpX Take 200 mg by mouth daily. montelukast (SINGULAIR) 10 mg tablet Take 10 mg by mouth daily. mupirocin (BACTROBAN) 2 % ointment Apply topically 2 (two) times a day as ne eded. pantoprazole (PROTONIX) 40 MG tablet Take by mouth. (Patient taking differe ntly: Take by mouth nightly. ) 30 PARoxetine (PAXIL) 30 MG tablet Take 30 mg by mouth every morning. 0 potassium citrate (UROCIT-K) 10 mEq (1,080 mg) SR tablet Take by mouth. (Jordan jarrett taking differently: Take 40 mEq by mouth 2 (two) times a day. ) 90 predniSONE (DELTASONE) 20 MG tablet Take 10 mg by mouth daily. 2 tabs once d aily (40 mg total) simvastatin (ZOCOR) 10 MG tablet Take by mouth. 90 tamsulosin (FLOMAX) 0.4 mg cap Take by mouth nightly. traMADol (ULTRAM) 50 mg tablet Take by mouth. 180 albuterol (VENTOLIN HFA) 90 mcg/actuation HFA inhaler Inhale two puffs 4 (fo ur) times a day. (Patient taking differently: Inhale 2 puffs every 6 (six) hours as needed. ) 1 Inhaler 4 clobetasoL (TEMOVATE) 0.05 % cream Apply topically 2 (two) times a day. fish oil-dha-epa 1,200-144-216 mg cap Take 1 capsule by mouth daily. folic acid (FOLVITE) 400 MCG tablet Take 400 mcg by mouth daily. Lactobac no.41-Bifidobact no.7 (PROBIOTIC-10) 70 mg (3 billion cell) cap Gurinder e by mouth daily. nadolol (CORGARD) 40 MG tablet Take by mouth. (Patient taking differently: Take 10 mg by mouth 2 (two) times a day. ) 255 No current facility-administered medications for this visit. Past Medical History: Diagnosis Date Abdominal pain [...] skin cancer Testicular cancer (HCC) Wheezing 09/09/2015 SURGICAL HISTORY: Past Surgical History: Procedure Laterality Date APPENDECTOMY CHOLECYSTECTOMY COLONOSCOPY 2012 COLONOSCOPY, WITH MULTIPLE POLYP OR TISSUE BIOPSIES USING FORCEPS N/A 016 Procedure: COLONOSCOPY BIOPSY POLYP OR TISSUE MULTIPLE WITH FORCEP; Surgeon: Funmilayo Angelo MD; Location: [facility]; Service: Gastroenterology; Laterality: N/ A; COLONOSCOPY, WITH MULTIPLE POLYP OR TISSUE BIOPSIES USING FORCEPS N/A 11/06/19 19 Procedure: COLONOSCOPY, WITH MULTIPLE POLYP OR TISSUE BIOPSIES USING FORCEPS; Surgeon: El Angelo MD; Location: [facility]; Service: Gastroenterology; Late rality: N/A; EGD, USING BIOPSY N/A 12/25/2015 Procedure: ESOPHAGO-GASTRO DUODENOSCOPY BIOPSY; Surgeon: El Angelo MD; L ocation: [facility]; Service: Gastroenterology; Laterality: N/A; ESOPHAGO-GASTRO DUODENOSCOPY WITH BIOPSY POLYP OR TISSUE MULTIPLE WITH FORCE P N/A 11/06/2018 Procedure: ESOPHAGOGASTRODUODENOSCOPY, WITH MULTIPLE TISSUE BIOPSIES OR POLYPEC MARNIE USING FORCEPS; Surgeon: El Angelo MD; Location: [facility]; Service: Ga stroenterology; Laterality: N/A; HERNIA REPAIR ORCHIECTOMY OTHER SURGICAL HISTORY Gallbladder Surgery VT ABDOMEN SURGERY PROC UNLISTED Description: STOMACH HERNIA REPAIR VT APPENDECTOMY VT RESECT SMALL INTEST,SINGL RESEC/ANAS skin cancer removal UPPER GASTROINTESTINAL ENDOSCOPY 2005 ALLERGIES: Allergies Allergen Reactions Inflectra [Infliximab-Dyyb] Shut pt.'s kidneys down Opioids - Morphine Analogues Other (See Comments) and Syncope Cardiac Arrest Hydromorphone Hcl Other (See Comments) Difficulty breathing Latex, Natural Rubber Constipation Adverse Reaction Meperidine Hcl Other (See Comments) Adverse Reaction Oxycodone-Acetaminophen Hives Dyspnea SOCIAL HISTORY: Social History Socioeconomic History Marital status: Spouse name: Not on file Number of children: Not on file Years of education: Not on file Highest education level: Not on file Occupational History Not on file Tobacco Use Smoking status: Former Smoker Packs/day: 0.50 Years: 10.00 Pack years: 5.00 Types: Cigarettes Start date: 11/26/2014 Smokeless tobacco: Never Used Substance and Sexual Activity Alcohol use: No Alcohol/week: 0.0 standard drinks Drug use: No Sexual activity: Not on file Other Topics Concern Not on file Social History Narrative Exercise Habits; Uses Safety [...] Social Gatherings with Friends and Family: Attends [employer] Services: Active Member of Clubs or Organizations: Attends Club or Organization Meetings: Marital Status: Intimate Partner Violence: Fear of Current or Ex-Partner: Emotionally Abused: Physically Abused: Sexually Abused: FAMILY HISTORY: Family History Problem Relation Age of Onset Diabetes Other Family History; Diabetes Mellitus; Cancer Other Family History; Cancer; PHYSICAL EXAM: Blood pressure 111/67, pulse 89, weight 126.4 kg (278 lb 11.2 oz). General Appearance: Alert, cooperative, no distress, appears stated age Eyes: Conjunctiva/corneas clear, EOM's intact Neck: Supple, no adenopathy; no tenderness/mass/nodules Lungs: Clear to auscultation bilaterally, respirations unlabored Heart: Regular rate and rhythm, S1 and S2 normal, no murmur, rub, or gallop Abdomen: Soft, non-tender, bowel sounds active all four quadrants, no masses, no organomegaly Skin: Multiple skin lesions on both upper extremities LAB RESULTS: No lab components to display No lab components to display No lab components to display No visits with results within 1 Month(s) from this visit. Latest known visit with results is: Hospital Outpatient Visit on 11/26/2019 Component Date Value Ref Range Status WBC 11/26/2019 5.09 4.00 - 11.00 TH/uL Final RBC 11/26/2019 3.91* 4.31 - 5.84 MIL/uL Final Hemoglobin 11/26/2019 13.6 13.0 - 17.0 g/dL Final Hematocrit 11/26/2019 41 40 - 50 % Final MCV 11/26/2019 104* 80.0 - 99.0 fL Final MCH 11/26/2019 35* 27.0 - 34.0 pg Final MCHC 11/26/2019 33 32 - 36 % Final RDW 11/26/2019 14.6* 11.5 - 14.5 % Final Platelet Count 11/26/2019 159 140 - 400 TH/uL Final MPV 11/26/2019 11.7 9.4 - 12.3 fL Final Nucleated RBCs 11/26/2019 0 0 - 0 /100 Final % Neutrophils 11/26/2019 50 45 - 78 % Final %Lymphocytes 11/26/2019 30 15 - 47 % Final % Monocytes 11/26/2019 12 0 - 12 % Final %Eosinophils 11/26/2019 7 0 - 7 % Final %Basophils 11/26/2019 0 0 - 2 % Final % Imm Grans 11/26/2019 0 0 - 1 % Final # Granulocytes 11/26/2019 2.59 1.70 - 6.80 TH/uL Final # Lymphocytes 11/26/2019 1.54 1.00 - 3.30 TH/uL Final # Monocytes 11/26/2019 0.60 0.20 - 0.90 TH/uL Final # Eosinophils 11/26/2019 0.34 0.00 - 0.40 TH/uL Final # Basophils 11/26/2019 0.02 0.00 - 0.10 TH/uL Final Sodium 11/26/2019 138 133 - 147 MEQ/L Final Potassium 11/26/2019 4.2 3.5 - 5.3 MEQ/L Final Chloride 11/26/2019 107 96 - 112 MEQ/L Final Carbon Dioxide 11/26/2019 27 20 - 32 MEQ/L Final Anion Gap 11/26/2019 5 5 - 17 Final Calcium 11/26/2019 8.8 8.4 - 10.5 mg/dL Final Glucose 11/26/2019 115* 70 - 100 mg/dL Final Blood Urea Nitrogen 11/26/2019 14 7 - 26 mg/dL Final Creatinine 11/26/2019 0.8 0.6 - 1.3 mg/dL Final eGFR Male AA 11/26/2019 119 60 - 200 mL/min/1.73sq m Final eGFR Male Non-AA 11/26/2019 98 60 - 200 mL/min/1.73sq m Final Colon Cancer Screening Status:Recentcolonoscopy inFeb 2019 -evidence of pr evious ileocolonic resection but otherwise unremarkable. Random colon biopsies were negative.Due for repeat in 3 years. ASSESSMENT: 1. Crohn's disease-ileocolonic, diagnosed 26years ago, s/p ileocolonic resec tion in past, now on Remicade [id number] mgevery 6 weeks. Was also on Imur an but was stopped last year due to multiple skin lesions of basal cell carcinom a. Seems to be in clinical remission. 2. Dysphagia-mainly to pills.Prior EGDs have been negative for similar com plaint in the past. He feels symptoms got worsened after receiving cervical ve rtebral surgery. Barium esophagram was negative for any impingement on esophagu s or any dysmotility. 3. GERD-on pantoprazole 40 mg daily. 4. 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 Follows with dermatology. 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 5. Muscle cramps in both upper and lower extremities-electrolytes within normal limit. On magnesium and calcium supplements empirically. PLAN: 1.Continue Remicade at this time. Continue to hold Imuran. 2. Continue Protonix 40 mg daily. 3. Repeat colonoscopy next year. Follow-up in office in 1 year. I spent 25 total minutes for this visit today, including review of previous not es, examination, review of results, discussion with patient regarding plan of ca re, medical decision making , documentation and placing new orders and care plan lakhwinedr and care coordination Thank you for allowing me to participate in care of your patient. Please do not hesitate to contact me if you have any further questions or if I can be of any further assistance. El Angelo M.D. Disclaimer: Part of this note is generated using [employer] voice recognition softwa re. Please excuse any uncorrected grammatical or typographical error. Electronically signed by El Angelo 04/30/2021 3:17 PM documented in this encounter Plan of Treatment Care Team Description Date Type Specialty 06/10/2021 Nurse Only Dermatology Forrest Pereira MD [address] [address] [phone] 06/15/2021 Procedure visit Dermatology documented as of this encounter Visit Diagnoses Diagnosis Crohn's disease of both small and large intestine without complication (HCC) - Primary documented in this encounter
--- OUTSIDE RECORDS SUMMARY | 2021-05-28 07:36 | XMS REPORT | Encounter Summary ---
Author Author [facility] Organization [facility] Address Unknown Phone Unavailable Care Team Providers Care Coffee Bar Attendant Name Role Phone Orville Willard MD PCP Encounter Details Care Team Description Date Type Department Mary Melchor RN 04/08/2021 Telephone [facility] [address] [phone] Social History Date Tobacco Use Types Packs/Day Years Used Started: 11/26/2014 Former Smoker Cigarettes 0.5 10 Smokeless Tobacco: Never Used Comments Alcohol Use Standard Drinks/Week No 0 (1 standard drink = 0.6 o z pure alcohol) Sex Assigned at Date Recorded 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 Pereira. Discussed the Mohs procedure. P atient expressed understanding. A referral will be sent to Dr. Pereira' nurse. Also spoke with patient concerning malignant left upper extremity proximal exten sor and atypical right thigh biopsy results.It was explained that the standard o f care is to have the lesions excised. Patient is scheduled for excision with Dr Wendy Judge on 05/13/2021 and 05/27/2021. Pre-Op Instructions sent via the portal. MOHS Questionnaire Most Recent Value MOHS Questionnaire Site: Mohs right dorsal hand, SCC/Exc left upper extremity proximal extensor, S CC/Exc right thigh, atypical sebaceous neoplasm Excision Date 05/13/21 [05/27/2021] Takes Aspirin: No Takes Multivitamins: Yes Takes Fish Oil: Yes Takes Blood thinners: Yes [Eliquis] Heart Valve Replacement: No Heart Valve Replacement greater than one year: No Heart Murmur: No Defibrillator: No Pacemaker: No History of Joint Replacement in last 2 years: No Is the procedure in the groin or lower extremity: Yes [Right thigh, atypical se baceous neoplasm] Was a pre-operative prophylaxis called in: No History of Infection: -- [Denies] Do you use nicotine products: No Does the pt have Medicare or private insurance: Medicare * Telephone Encounter - Mary Melchor RN - 04/08/2021 9:58 AM CDT ----- Message from Baldo Judge MD sent at 04/03/2021 12:56 PM CDT ----- A. . Right dorsal hand This is a malignant lesion that requires additional care - will need MOHS Surger y. My nurse will call the patient and convey the diagnosis as well as the necessity of mohs. Please refer to [facility]. B. 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 My nurse will call the patient and convey the diagnosis. My staff will schedule the patient for an excision appointment in my clinic. Staff, please reply back to me when the patient's excision appointment has been confirmed. Thank you. C. Right thigh atypical sebaceous neoplasm. Staff, please add "sebaceous neoplasm "to the problem list and document as we ty pically do for nonmelanoma cutaneous malignancies This is a probable malignant cutaneous lesion that requires additional care. My nurse will call the patient and convey the diagnosis. My staff will schedule the patient for an excision appointment in my clinic. Staff, please reply back to me when the patient's excision appointment has been confirmed. Thank you. documented in this encounter Plan of Treatment Care Team Description Date Type Specialty 06/10/2021 Nurse Only Dermatology Forrest Pereira MD [address] [place] [id number] [phone] 06/15/2021 Procedure visit Dermatology documented as of this encounter Visit Diagnoses Diagnosis Personal history of skin cancer Personal history of other malignant carmen plasm of skin Sebaceous neoplasia of skin determined by biopsy documented in this encounter
--- OUTSIDE RECORDS SUMMARY | 2021-05-28 07:36 | XMS REPORT | Clinical Summary ---
Author Author [facility] Organization [facility] Address Unknown Phone Unavailable Care Team Providers Care Restaurant Hospitality Manager Name Role Phone Orville Willard MD PCP Allergies Comments Active Allergy Reactions Severity Noted Date Difficulty breathing Hydromorphone Hcl Other (See 08/14/2015 Comments) Shut pt.'s kidneys down Infliximab-Dyyb High 03/15/2019 Adverse Reaction Latex, Natural Rubber Constipation 08/14/2015 Adverse Reaction Meperidine Hcl Other (See 08/14/2015 Comments) Cardiac Arrest Opioids - Morphine Other (See High 08/14/2015 Analogues Comments), Syncope Dyspnea Oxycodone-Acetaminophen Hives 08/14/2015 Medications End Date Status Medication Sig Dispensed Refills Start Date Active simvastatin (ZOCOR) 10 MG Take by 90 0 tablet mouth. 1 Active traMADol (ULTRAM) 50 mg Take by 180 0 tablet mouth. 2 Active nadolol (CORGARD) 40 MG Take by 255 0 tablet mouth. 1 Additional Information Patient taking differently: 10 mg Oral 2 times daily, Reported on 11/06/2018 Active lisinopril-hydrochlorothi Take by 90 0 azide mouth. 1 (PRINZIDE,ZESTORETIC) 20-25 mg per tablet Active potassium citrate Take by 90 0 08/26/20 1 (UROCIT-K) 10 mEq (1,080 mouth. 1 mg) SR tablet Additional Information Patient taking differently: 40 mEq Oral 2 times daily, Indications: calcium renal calculi prevention, Reported on 11/06/2018 Active pantoprazole (PROTONIX) Take by 30 0 40 MG tablet mouth. 1 Additional Information Patient taking differently: Oral Nightly, Reported on 11/06/2018 Active ARIPiprazole (ABILIFY) 10 Take by 30 0 MG tablet mouth. 5 Additional Information Patient taking differently: 10 mg Oral Daily, Reported on 11/06/2018 Active PARoxetine (PAXIL) 30 MG Take 30 mg by 0 07/29 tablet mouth every 5 morning. Active CIALIS 5 mg tablet daily as 5 needed. 5 Active albuterol (VENTOLIN HFA) Inhale two 1 Inhaler 4 1 90 mcg/actuation HFA puffs 4 5 inhalerIndications: (four) times bronchospasm prevention a day. Additional Information Patient taking differently: 2 puff Inhalation Every 6 hours PRN, Indications: bronchospasm prevention, Reported on 11/06/2018 Active INFLIXIMAB (REMICADE IV) Infuse 300 mg 0 into a venous catheter. EVERY 6 WEEKS Active predniSONE (DELTASONE) 20 Take 10 mg by 0 MG tabletIndications: mouth daily. Crohn's disease 2 tabs once daily (40 mg total) Active folic acid (FOLVITE) 400 Take 400 mcg 0 MCG tablet by mouth daily. Active Lactobac no.41-Bifidobact Take by mouth 0 no.7 (PROBIOTIC-10) 70 mg daily. (3 billion cell) cap Active montelukast (SINGULAIR) Take 10 mg by 0 10 mg tablet mouth daily. 8 Active mupirocin (BACTROBAN) 2 % Apply 0 06/04 ointment topically 2 8 (two) times a day as needed. Active tamsulosin (FLOMAX) 0.4 Take by mouth 0 mg cap nightly. 8 Active fish oil-dha-epa Take 1 0 1,200-144-216 mg cap capsule by mouth daily. Active apixaban (ELIQUIS) 5 mg Take 5 mg by 0 tablet mouth 2 (two) times a day. Active metoprolol succinate 200 Take 200 mg 0 mg CSpX by mouth daily. Active doxazosin (CARDURA) 1 MG Take 1 mg by 0 tablet mouth nightly. Active diphenoxylate-atropine TAKE 2 240 tablet 3 (LOMOTIL) 2.5-0.025 mg TABLETS BY 0 per tabletIndications: MOUTH UP TO Diarrhea, unspecified FOUR TIMES type DAILY Active cyanocobalamin (VITAMIN Take 1,000 0 B-12) 1000 MCG tablet mcg by mouth daily. Active miscellaneous medical Compression 3 kit 1 05/03 supply KitIndications: stockings. 1 Venous stasis dermatitis 15-20mmHg. 3 of both lower extremities pairs. Active triamcinolone (KENALOG) Apply 454 g 1 0.1 % cream topically 2 1 (two) times a day. Do not apply to face or skin folds 05/13/2021 Discontinued clobetasoL (TEMOVATE) Apply 0 0.05 % cream topically 2 (two) times a day. 05/23/2021 doxycycline hyclate Take 1 tablet 20 tablet 0 05/03 (VIBRA-TABS) 100 MG (100 mg 1 tablet total) by mouth 2 (two) times a day. Active Problems Problem Noted Date Epidermal inclusion cyst 05/27/2021 Overview: Formatting of this note might be differ ent from the original. R penile shaft L ast Assessment & Plan: Formatting of this note might be differ ent from the original. Right penile shaft New Chronic Stable Continue to monitor closely Venous stasis dermatitis of both lower extremities 0 05/13/2021 Last Assessment & Plan: Formatting of this note might be differ ent from the original. New Chronic TMC 0.1% cream Chronic Stasis dermatitis can progress to stasi s ulceration leading to superinfection or chronic wounds result ing in morbidity Extensive counseling today regarding co mpression stockings. Further, provided comprehensive written instruct ions on how to wear compression stockings as well as directions regardi ng leg elevation above the level of the heart provided at discharge today. Most effective therapy will be consistent, daily compression stocking use. Emphasized importance with the patient prior to discharge. Emphasized the role the utilization of compression stockings in prophylaxis of infection, stasis ulceration and other afflictions that are common as a result of retention of serum/fluid and subsequent edema and other sub-clin ical changes secondary to stasis that may not be appreciable on exam. Also, provided patient with location an d name of [employer] supply store nearby (included address, telephone num francy and name of the vendor with written instructions) as well as a pres cription for compression stockings. See discharge instructions Dermatitis 05/13/2021 Last Assessment & Plan: Formatting of this note might be differ ent from the original. Bilateral upper extremities and lower e xtremities There is a component of stasis to this dermatitis in the lower extremities, but there appears to be al so potential eczematous dermatitis versus lichenoid dermatitis. Considera tion could be drug-induced given extensive list of medications. Compression as below, symptom managemen t for now. Biopsies of the bilateral lower extremities could intro duce risk of infection given me known suppressed status as well as body habitus. 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 1. Atypical Right thigh Fink Pending excision 05/27/2021 AK (actinic keratosis) 03/30/2021 Last Assessment & Plan: Formatting of this note might be differ ent from the original. hands After informed verbal consent, includin g a discussion of risks (blistering, pain, erythema, crusting, infection, bleeding, skin pigment changes, lesion recurrence and potentia l necessity of multiple liquid nitrogen treatments) and benefits, in a ddition to alternative treatments like field therapy, liquid nitrogen cry otherapy was applied to 4 lesion(s), as above. Freeze thaw cycles of 20s pe r application were undertaken x 2 to actinic keratoses in the abovementioned areas These lesions represent an acute, progr essive flare of a distinctive chronic illness: actinic skin damage. Actinic cutaneous damage constitutes the skin manifestations of chronic expo sure to UVA and UVB over years. This is a chronic condition and confers risk for progression to non-melanoma cutaneous malignancies as well as risk for development of melanoma. Today's diagnosed actinic keratoses represent a n acute exacerbation of the above mentioned. The presence of actinic keratosis and c hronic actinic skin damage confers significant increased risk, mcc, of both non-melanoma cutaneous malignancies like basal cell carcinoma and squamous cell carcinoma, as well as melanoma and other less common cutan eous malignancies like Jean-Pierre cell carcinoma. This increased risk informs my recommendations for follow up total body skin exams for the purposes of skin malignancy screening as well as my recommendations for changed patie nt behaviors regarding sun avoidance and self skin monitoring. I have provi ded written instructions on these recommendations to the patient today. Dehiscence of closure of skin 02/26/2021 Overview: Formatting of this note might be differ ent from the original. R dorsal hand L ast Assessment & Plan: Formatting of this note might be differ ent from the original. S/p mohs. Remove suture today Maintain dressing for additional 2 week s, daily changes. Petrolatum jelly History of squamous cell carcinoma 12/31/2020 Overview: Formatting of this note might be differ ent from the original. Right dorsal hand 02/12/21 Right dorsal hand mohs 12/31/20 Personal history of skin cancer 11/04/2020 Overview: Formatting of this note might be differ ent from the original. BCC R hand 06/2020 Pt can't recall name BCC L forearm 06/2020 Pt can't recall name BCC R neck 08/2018 Pt can't recall name 4. SCC Right dorsal hand Dr. Pereira Mohs December 2020 5. SCC Right forearm Dr. Judge February 26, 2021 exc 6. SCC Left forearm Dr. Judge exc March 12, 2021 7. SCC Right dorsal hand Randall Pending Mohs June 15, 2021 8. SCC Left upper extremity proximal extensor Alfie Pending exc 05/13/2021 Last Assessment & Plan: Formatting of this note might be differ ent from the original. NER Individuals who have had NMSC are at si gnificant increased risk for the development of additional Non-Melanoma Skin cancer as well as increased risk for the development of cutaneous m alignant melanoma. The actinic damage that has lead the pr evious NMSC in this case constitutes a chronic condition that co nfers high relative risk for additional NMSC and MM as above. I discussed this increased risk, extens ively, with the patient and emphasized the need for the patient to perform regular self skin checks as well as need for the patient to follow up regularly with a energy crop farmer for skin checks. The patient. Further , written education materials on changing lesions and instructions on ho w to perform self skin exams were provided to the patient at discharge to day. Multiple benign nevi 11/04/2020 Overview: Formatting of this note might be differ ent from the original. Trunk and extremities These lesions are chronic and stable. Today's evaluation was conducted by me in order to differentiate these lesi ons from concerning pigmented lesions such as dysplastic nevi or deja gnant melanoma as well as non-melanoma cutaneous malignancies. We will continue to monitor these lesio ns closely in order to differentiate these chronic lesions fro m the above mentioned malignancies or pre-malignant lesions. If any browne es should occur in the future, he is encouraged to have the lesion(s) rechec ked at our office. 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 Trunk and extremities These lesions are chronic and stable. Today's evaluation was conducted by me in order to differentiate these lesi ons from concerning pigmented lesions such as dysplastic nevi or deja gnant melanoma as well as non-melanoma cutaneous malignancies. We will continue to monitor these lesio ns closely in order to differentiate these chronic lesions fro m the above mentioned malignancies or pre-malignant lesions. If any browne es should occur in the future, he is encouraged to have the lesion(s) rechec ked at our office. 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 Poikiloderma of [place] is a condition that typically is seen in fair-skinned adults. It refers to the mottled erythema, thin lakhwinder of the skin, and discoloration of the skin that ensues from chronic ex posure to the sun. Often, this rash can be itchy. Sometim es it carlson. Frequently there are no symptoms at all. When present, Poikiloerma of [place] is a chronic, persistent condition precipitated by long-term prior exposur e to UV radiation that suggests increased risk of NMSC and MM at this s ite. Continue to monitor given increased ris k of NMSC and MM and recommended consistent application of SPF to mitiga te skin cancer risk. Stucco keratoses 11/04/2020 Overview: Formatting of this note might be differ ent from the original. BLE L ast Assessment & Plan: Formatting of this note might be differ ent from the original. Benign keratoses, minimal malignant pot ential chronic Commonly mistaken for actinic keratoses due to overlap with gross clinical appearance of AK's No e/o actinic damage in the involved l ocations this case. Continue to monitor for actionable acti constanza damage Neoplasm of uncertain behavior of skin 11/04/2020 Last Assessment & Plan: Formatting of this note might be differ ent from the original. Multiple Shave Biopsies today: 1. Left upper proximal extremity extens or-R/O SCC 2. right dorsal hand- R/O SCC 3. Right thigh-R/O SCC The areas of involved skin were anesthe tized with buffered 1% lidocaine with 1:100,000 parts epinephrine. Afte r the areas were tested for anesthesia, [id number] scalpel was us ed to perform shave biopsies. Minimal subsequent bleeding controlled with Aluminum Chloride and area was dressed with petrolatum jelly and a ban dage. I have separately placed an order for a unique histology evaluation to be undertaken in order to further elucidat e the nature of the concerning lesion for which the biopsy procedure w as undertaken today. Written and verbal wound care instructi ons were provided by the medical reception specialist at time of discharge. Further, written communication regardin g the risk of morbidity stemming from treatment of cutaneous malignancy, for which we are testing today, was provided to the patient at the time of discharge. Due to the COVID-19 [facility], we are forgoing written consent in order to protect patients fr om surface contact with potential fomites which could facilitate virus tr ansmission. Due to the COVID-19 [facility], we are forgoing written consent in order to protect patients fr om surface contact with potential fomites which could facilitate virus tr ansmission. Verruca vulgaris 11/04/2020 Overview: Formatting of this note might be differ ent from the original. L plantar 5th digit and 3rd digit L ast Assessment & Plan: Formatting of this note might be differ ent from the original. L plnatar 5th digit and left plantar th ird digit After informed verbal consent, includin g a discussion of risks (lesion recurrence, blistering, pain, erythema, crusting, infection, bleeding, skin pigment changes, lesion recurrence, and potential necessity for multiple liquid nitrogen treatments) and benefit s, in addition to alternative treatments like topical medications or observation, liquid nitrogen cryotherapy was applied to 2 verruca le agusto(s), as above. Crohn disease 04/03/2019 Wheezing 09/09/2015 Chronic cough 08/25/2015 Post-nasal drip 08/25/2015 Dyspnea 08/25/2015 Snoring 08/25/2015 Witnessed apneic spells 08/25/2015 Excessive daytime sleepiness 08/25/2015 Continuous nicotine dependence 08/25/2015 TASH on CPAP 08/25/2015 Regional enteritis 11/21/2012 Overview: Formatting of this note might be differ ent from the original. ICD-10 conversion Abdominal pain 12/10/2011 Overview: Formatting of this note might be differ ent from the original. ICD-10 conversion Nephrolithiasis 12/10/2011 Hematuria 12/10/2011 Overview: Formatting of this note might be differ ent from the original. ICD-10 conversion Encounters Care Team Description Date Type Specialty Baldo Judge MD Sebaceous neoplasia of skin determined b y biopsy (Primary Dx); Personal history of skin cancer; Verruca vulgaris; AK (actinic keratosis); Epidermal inclusion cyst 05/27/2021 Procedure visit Dermatology Baldo Judge MD 05/26/2021 Documentation Dermatology Mary Melchor RN 05/14/2021 Telephone Dermatology Baldo Judge MD Personal history of skin cancer (Primary Dx); Squamous cell carcinoma of arm, left; Venous stasis dermatitis of both lower extremities; Dermatitis 05/13/2021 Procedure visit Dermatology El Angelo MD Crohn's disease of both small and large intestine without complication (HCC) (Primary Dx) 04/30/2021 Office Visit Gastroenterology Kaya Carlson RN Results (need mohs to right dorsal hand dx SCC (M.F. 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[place] (Primary Dx); Personal history of skin cancer; Stucco keratoses; Verruca vulgaris; Eczema, unspecified type; Multiple benign nevi; Neoplasm of uncertain behavior of skin; AK (actinic keratosis) 03/30/2021 Office Visit Dermatology El Angelo MD 03/26/2021 Orders Only Gastroenterology Mary Melchor RN 03/13/2021 Telephone Dermatology Baldo Judge MD Squamous cell carcinoma of arm, left (Pr imary Dx); Personal history of skin cancer 03/12/2021 Procedure visit Dermatology Zulma Solorzano RN 03/11/2021 Telephone Dermatology Baldo Judge MD Personal history of skin cancer (Primary Dx); Squamous cell carcinoma of skin, unspecified; Disruption or dehiscence of closure of skin, initial encounter 02/26/2021 Procedure visit Dermatology from Last 3 Months Family History Medical History Relation Name Comments Diabetes Other Family History; Frida betes Mellitus; Cancer Other Family History; Can cer; Relation Name Status Comments Other Other Social History Date Tobacco Use Types Packs/Day Years Used Started: 11/26/2014 Former Smoker Cigarettes 0.5 10 Smokeless Tobacco: Never Used Tobacco Cessation: Ready to Quit: Yes Comments Alcohol Use Standard Drinks/Week No 0 (1 standard drink = 0.6 o z pure alcohol) Sex Assigned at Date Recorded Male 10/30/2020 9:39 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 SLABBER Last Filed Vital Signs Reading Time Taken Comments Vital Sign 130/82 05/27/2021 8:12 AM CDT Blood Pressure 71 05/27/2021 8:12 AM CDT Pulse 36.6 C (97.8 F) 05/27/2021 8:12 AM CDT Temperature 16 11/26/2019 8:07 AM SOAP SLABBER Respiratory Rate 97% 11/26/2019 8:07 AM SOAP SLABBER Oxygen Saturation - - Inhaled Oxygen Concentration 126 kg (277 lb 12.8 oz) 05/27/2021 8:12 AM CDT Weight 182.9 cm (6') 08/16/2019 12:32 PM SOAP SLABBER Height 37.68 08/16/2019 12:32 PM SOAP SLABBER Body Mass Index Plan of Treatment Care Team Description Date Type Specialty 06/10/2021 Nurse Only Dermatology Forrest Pereira MD [facility] [address] [address] [phone] 06/15/2021 Procedure visit Dermatology Health Maintenance Due Date Last Done Comments Hepatitis C Screen 1955 Medicare Annual Wellness 1955 Td/Tdap# 1955 Tobacco Cessation 1955 Counseling # Zoster Vaccine# (1 of 2) 2007 Influenza Vaccine (#1) 2021 08/14/2019, 08/22/2018, 07/18/2018, Additional history exists Colorectal Screening via 11/06/2021 11/06/2018, Colonoscopy 11/06/2018, 12/25/2015 Pneumococcal Vaccine: 65+ 2022 07/18/2018, Years (2 of 2 - PPSV23) 07/17/2010 Pneumococcal Vaccine: Aged Out 07/18/2018, No longe r eligible based on patient's age to Pediatrics (0 to 5 Years) 07/17/2010 complete th is topic and At-Risk Patients (6 to 64 Years) COVID-19 Vaccine Completed 05/25/2021, 02/13/2021, 01/15/2021 Implants Device Identifier Shelf Expiration Date Model / Serial / L ot Implanted Type Area Manufactur er Saline Filled Testicle R Procedures Comments Procedure Name Priority Date/Time Associated Diag nosis TISSUE PATHOLOGY OR Routine 05/13/2021 Squamous c ell carcinoma BIOPSY 8:08 AM CDT of arm, left TISSUE PATHOLOGY OR Routine 03/30/2021 Neoplasm o f uncertain BIOPSY 12:57 PM CDT behavior of skin TISSUE PATHOLOGY OR Routine 03/12/2021 Squamous c ell carcinoma BIOPSY 1:02 PM CDT of arm, left TISSUE PATHOLOGY OR Routine 02/26/2021 Squamous c ell carcinoma BIOPSY 1:14 PM CDT of skin, unspecifie d from Last 3 Months Results * Tissue Pathology or Biopsy (05/13/2021 8:08 AM CDT) Only the most recent of 4 results within the time period is included. Specimen Tissue Narrative Performed At [facility] SURGICAL PATHOLOGY REPORT Patient Name: DONOVAN SANCHEZ /Age/Sex:1955 (Age: 66) /M MR N: [id number] Specimen #: [id number] ##################MICROSCOPIC INTERPRET ATION################## Left upper extremity proximal extensor, excision: - Changes consistent with reactio n to prior procedure. - Residual squamous cell carcinoma not identified. Luis Mejia Jr., MD, FASDP Report Electronically Signed Out SS: 05/18/21 [facility] Test performed by [facility] [address] [place] [address]. CLIA # [id number] Clinical History/Impression: Left upper extremity proximal extensor: prior biopsy diagnosis of well-differentiated squamous cell carci noma (see [facility] [id number] on 03/31/2021). Specimen Labeled: Left upper extremity proximal extensor Gross Description: "Left upper extremity proximal extensor "; neutral buffered formalin; elliptical excision; measuring 4.7 x 1.8 x 0.8 cm with a 1.0 x 0.8 cm barclay-white ulcerated previous biopsy site; serially bread lo afed and the entire ellipse is sequentially submitted in cassettes (A1-A4). (KO) ko ###END OF REPORT### Performing Organization Address City/State/ZIP Code P cheryl Number [facility] [address] [place], [place] [id number] from Last 3 Months Insurance Type Payer Benefit Subscriber ID Effective Phone Address Plan / Dates Group Medicare MEDICARE MEDICARE [id number] 2006-P [place] PART A B resent [place], [place] COMMERCIAL-NONCONTRACTED MISC [id number] COMMERCIAL resent NONCONTRAC [place] 1 Donovan Sanchez Personal/F Self [address] am[place] (Home) [place] [id number] 1 Donovan Sanchez Personal/F Self [address] [place] (Home) [place] [address] 1 Advance Directives For more information, please contact: [phone] Patient Angio Technologist Explanation Type Date Recorded Advance Directives and Living Will Power of Seasonal Sales Associate Health Care 01/06/2014 11:02 AM Directive
--- OUTSIDE RECORDS SUMMARY | 2021-05-28 07:36 | XMS REPORT | Encounter Summary ---
Author Author [facility] Organization [facility] Address Unknown Phone Unavailable Care Team Providers Care Poultry Barn Manager Name Role Phone Orville Willard MD PCP Reason for Visit * Reason Comments Results need mohs to right dorsal h and dx SCC (M.F. pt.) Encounter Details Care Team Description Date Type Department Kaya Sanchez RN Results (need mohs to right dorsal hand dx SCC (M.F. 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 And scheduled pt. For mohs to right dorsal hand dx SCC on 06/15/21 at 10 am for an arrival of 0945. Reviewed Mohs questionnaire with pt. Instructed pt . To hold fish oil and multivitamin one week prior to procedure. Pt. Verbalized understanding and will call office with any questions. * Telephone Encounter - Kaya Sanchez RN - 04/08/2021 11:26 AM CDT Images from the original note were not included. Telephone 04/08/2021 [facility] Mary Melchor RN Personal history of skin cancer +1 more Dx Conversation: Pre-Op Instructions (Oldest Message First) Mary Melchor RN TD 04/08/21 9:58 AM Note ----- Message from Baldo Judge MD sent [...] excision appointment has been confirmed. Thank you. Mary Melchor RN TD 04/08/21 10:02 AM Note Spoke with patient concerning malignant right dorsal [...] private insurance: Medicare * Telephone Encounter - Kaya Sanchez RN - 04/08/2021 11:26 AM CDT ----- Message from Forrest Pereira MD sent at 04/08/2021 11:02 AM CDT ----- Regarding: RE: Re: need for plastics closure ? No need for plastics ----- Message ----- From: Kaya Sanchez RN Sent: 04/08/2021 10:49 AM CDT To: Forrest Pereira MD, Tracie Sarmiento RN Subject: Re: need for plastics closure ? This is a Baldo Judge Patient. Does pt need plastics closure for right dorsal h and dx SCC? Please advise. Thanks. ----- Message ----- From: Mary Melchor RN Sent: 04/08/2021 10:12 AM CDT To: Tracie Sarmiento RN Please schedule patient for Mohs right dorsal hand, SCC. Thank you! ----- Message ----- From: Baldo Judge MD Sent: 04/03/2021 12:56 PM CDT To: , # A. . Right dorsal hand This is a malignant lesion that requires additional care - will need MOHS Surger y. My nurse will call the patient and convey the diagnosis as well as the necessity of mohs. Please refer to Randall. William. 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
--- OUTSIDE RECORDS SUMMARY | 2021-05-28 07:36 | XMS REPORT | Encounter Summary ---
Author Author [facility] Organization [facility] Address Unknown Phone Unavailable Care Team Providers Care Upward Bound Director Name Role Phone Orville Willard MD PCP Encounter Details Care Team Description Date Type Department Mary Melchor RN 05/14/2021 Telephone [facility] [address] [address] Social History Date Tobacco Use Types Packs/Day Years Used Started: 11/26/2014 Former Smoker Cigarettes 0.5 10 Smokeless Tobacco: Never Used Comments Alcohol Use Standard Drinks/Week No 0 (1 standard drink = 0.6 o z pure alcohol) Sex Assigned at Date Recorded 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 Patient reports no current bleeding, drainage. Reports mild swelling. Pain tolerable. No current co ncerns reported. Asked patient to call back if anything changed. documented in this encounter Plan of Treatment Care Team Description Date Type Specialty 06/10/2021 Nurse Only Dermatology Forrest Pereira MD [address] [address] [phone] 06/15/2021 Procedure visit Dermatology documented as of this encounter Visit Diagnoses Not on filedocumented in this encounter
--- OUTSIDE RECORDS SUMMARY | 2021-05-28 07:36 | XMS REPORT | Encounter Summary ---
Author Author [facility] Organization [facility] Address Unknown Phone Unavailable Care Team Providers Care Management Lecturer Name Role Phone Orville Willard MD PCP Reason for Visit * Reason Comments Spots Encounter Details Care Team Description Date Type Department Baldo Judge MD [address] [facility] [address] [place] [address] Sebaceous neoplasia of skin determined b y biopsy (Primary Dx); Personal history of skin cancer; Verruca vulgaris; AK (actinic keratosis); Epidermal inclusion cyst 05/27/2021 Procedure visit [facility] [address] [facility] [address] [place] [address] Social History Date Tobacco Use Types Packs/Day Years Used Started: 11/26/2014 Former Smoker Cigarettes 0.5 10 Smokeless Tobacco: Never Used Comments Alcohol Use Standard Drinks/Week No 0 (1 standard drink = 0.6 o z pure alcohol) Sex Assigned at Date Recorded 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 Last Filed Vital Signs Reading Time Taken Comments Vital Sign 130/82 05/27/2021 8:12 AM CDT Blood Pressure 71 05/27/2021 8:12 AM CDT Pulse 36.6 C (97.8 F) 05/27/2021 8:12 AM CDT Temperature - - Respiratory Rate - - Oxygen Saturation - - Inhaled Oxygen Concentration 126 kg (277 lb 12.8 oz) 05/27/2021 8:12 AM CDT Weight - - Height 37.68 08/16/2019 12:32 PM CRIMINAL JUSTICE LAWYER Body Mass Index documented in this encounter Patient Instructions * Patient Instructions* Ralph Phelps MA - 05/27/2021 7:30 AM CDT Sutured Incision After-Care Instructions - After surgery, please avoid strenuous activity at home. No lifting weight bey ond 15 lbs for 2 weeks. No bending or straining for 48 hours - Depending on the site of your surgery, you may need to take a break from worki ng out for the next 4-6 weeks. This means no running, cycling, spinning, liftin g, rowing, or any other high output cardiovascular activity (including vigorous sexual intercourse). Weight lifting regimens or strenuous cardiovascular traini ng like an elliptical machine, running, etc., are particularly problematic as th ey may increase the risk of poor healing or even incision dehiscence (sutures "p op" open). In this vein, if you undertake rigorous cardiovascular exercise regularly, you m ust be careful to slowly resume your baseline activity level beginning no sooner than 6 weeks after your procedure if your procedure was undertaken on the back, chest, scalp, upper arm, or thigh. - Avoid smoking. Even temporary cessation of smoking in the weeks after your roman rgery will facilitate better healing and diminish the risk of scar formation and infection. You can materially enhance healing by diminishing smoking by even 1-2 cigarettes per day! - If you have been instructed by our office to stop any medications, you should resume them within 48 hours after surgery - Leave the dressing that was placed post-operatively over the incision site for 48 hours post-operatively. - Keep the operative site dry for the next 48 hours, post-procedurally. You may carefully wash around the dressing in the shower. - If your bandage becomes saturated with blood, reinforce the surgical dressing with gauze and apply firm pressure to the site for 20 minutes. You must apply p ressure to the site for 20 consecutive minutes without releasing. If you releas e pressure to "peek" at the site, you must start the 20 minutes over again. If bleeding persists, please contact our office. It is normal to observe some drai nage from the site and this oozing can be blood-tinged. - 48 hours after surgery, remove your bandage. Clean the wound daily with mild soap and warm water. Do so gently. Steri strips (skin tape strips) were placed over the incision to stabilize it after the procedure. These strips will peel a way one at a time over the ensuing 5-7 days after you remove the post-operative dressing. When each of these individual strips peel away, you can apply vaselin e to the skin where the strip has peeled away. No need to apply vaseline over t op of the steri strips. - During the healing process, you may notice many stages of convalescence. All wounds develop a halo of redness around the site that indicates healing, not inf ection. It is normal to feel tightness and tingling, experience itching and jo etimes even pain as your wound heals. Dependent upon the site, there can be some numbness in proximity to the incision as well. This is normal. If present, th clayton symptoms will gradually subside with time. - If you experience severe itching or redness, this may indicate a sensitivity t o the bandage tape or to topical medicines that you may be applying to the area. Please only apply Vaseline/Petrolatum Jelly to the site post-operatively unless otherwise instructed by Dr. Judge. - Swelling and sometimes discoloration around the surgical site is common and to be expected as a result of the injected numbing medication and healing process. Sometimes this swelling subsides quickly, but it can last for more than a week. If the site continues to stay swollen do not panic, but feel free to call our office to discuss. - It is normal to observe some oozing from the site. This is part of your body' s natural healing process which is facilitated by creating moisture. Fluid that is yellowish in hue is expected. Pus that is thick, opaque and foul smelling is not. If you observe pus eminating from the site, please contact us. - Pain control is almost always sufficiently achieved with alternating use of ac etaminophen and ibuprofen. The local anesthetic used to numb your skin will las t for 3-4 hours post-operatively. I recommend starting ibuprofen within 2 hours of procedure completion. You should take ibuprofen every 8 hours and acetamino phen every 8 hours but stagger administration of these agents such that you rece odnnell one or the other every 4 hours. If you have liver or kidney issues, or if y ou are prohibited from ingesting ibuprofen or acetaminophen, please notify me so I can make alternative recommendations. - My staff will reach out within 14 days to notify you of the margin status afte r the pathologist has had an opportunity to evaluate. If you have any questions or concerns please call my nurse, Mary LEMONS direct line is [phone]. If unable to reach her leave a message or may call Zulma LEMONS at [phone]. documented in this encounter Progress Notes * Baldo Judge MD - 05/27/2021 7:30 AM CDT SKIN MALIGNANCY EXCISION NOTE Patient: Wild Woo Age: 66 y.o. : 1955 Sex: male History of Present Illness: Wild Woo presents today for excision of skin malignancy as follows: Diagnosis: Sebaceous neoplasm Location: R thigh C. Right thigh, shave: - Surface of atypical sebaceous neoplasm; see comment. - Recommend excision. Mr. Woo has several additional concerns: 1. Lesion on the penis that has been present for several months. His family do ctor recommended that it be evaluated by me 2. Scaly lesions on the arms and hands 3. Warts on the left foot that are persistent after liquid nitrogen, and OTC th erapies Past Medical History: Diagnosis Date Abdominal pain [...] skin cancer Testicular cancer (HCC) Wheezing 09/09/2015 Current Outpatient Medications: albuterol (VENTOLIN HFA) 90 [...] mouth daily. , Disp: , Rfl : miscellaneous medical supply Kit, Compression stockings. 15-20mmHg. 3 mateo rs., Disp: 3 kit, Rfl: 1 montelukast (SINGULAIR) 10 mg tablet, Take 10 [...] tablet, Take by mouth., Disp: 180, Rfl: triamcinolone (KENALOG) 0.1 % cream, Apply topically 2 (two) times a day. D o not apply to face or skin folds, Disp: 454 g, Rfl: 1 fish oil-dha-epa 1,200-144-216 mg cap, Take 1 [...] Adverse Reaction Oxycodone-Acetaminophen Hives Dyspnea OBJECTIVE: BP 130/82 | Pulse 71 | Temp 36.6 C (97.8 F) | Wt 126 kg (277 lb 12.8 oz) | BMI 37.68 kg/m Skin: brief skin exam conducted with pertinent findings as follows: - LLE 3rd digit and fifth digit Verrucous papule with punctate hemorrhage and in terrupted dermatoglyphics appreciable under dermoscopy - L hand with crusted, gritty red papules -Shaft, right penis firm nodule with overlying punctum Excision Procedure: Lesion diameter after curettage: [id number] Margins: 4mm Defect diameter: 24mm Defect length: 77mm Lidocaine 1% with 1:100,000 parts epinephrine use: 24mL After the correct patient was verified using two patient identifiers, the surgic al site was confirmed by the patient. The excision procedure was identified and a discussion of risks and benefits pertaining to excision was undertaken. The risks discussed included infection, scar, bleeding, hematoma, recurrence, change s to sensation of the skin around excision site. Benefits include excision/cure of skin malignancy. Upon completion of this discussion, Wild Woo agr eed to undergo the excision procedure and subsequently signed informed written c onsent to allow excision. A timeout was performed. The surgical site was reconfirmed. The lesion was measured, with above diameter indicated. Then, lidocaine 1% with 1:100,000 parts epinephrine was administered to site in the aforementioned volume to achieve anesthesia. Adequate anesthesia to the site was verified. The area was then prepped with povidone iodine applied in concentric circles extending from the center of the surgical site to include an area well beyond the lesion. The surgical site was subsequently draped with sterile towels and the iodine was allowed to dry, facilitating highest possible antiseptic efficacy. The skin of the malignant lesion was curretted to verify the extent of the lesio n. 4mm margins were measured from the edge of the curretted lesion, and an gertrude pse was drawn to include the previously mentioned margin of normal skin. This t otal defect diameter is indicated above. Using a 15 blade, the ellipse was exci sed with special care to ensure perpendicular skin edges. This specimen was harriet andrew into formalin and sent for pathology review of margin status. The surrounding area of skin was widely undermined to ensure that closure could be facilitated with minimal tension to maximize probability of the best cosmetic outcome and minimize probability of infection and dehiscence. Hemostasis was a scertained with electrocautery. Bleeding was verified as fully controlled. The defect was subsequently closed in a layered fashion. Defect edges were brought together with 9 deep sutures using 4-0 Monocryl. The skin edges approximated w ith 1 subcuticular, running suture using 5-0 Monocryl. After the procedure, written wound care instructions were provided by the [facility] staff and petrolatum jelly was applied the excision site. A pressure bandage was fitted to the site and verbal instructions, summarizing the above mentioned written instructions, were conveyed to the patient by my nurse and by me. Recomm endations for follow up were conveyed to remove sutures from the surgical site. Problem List Items Addressed This Visit Neoplastic AK (actinic keratosis) hands After informed verbal consent, including a discussion of risks (blistering, pain , erythema, crusting, infection, bleeding, skin pigment changes, lesion recurren ce and potential necessity of multiple liquid nitrogen treatments) and benefits, in addition to alternative treatments like field therapy, liquid nitrogen cryot herapy was applied to 3 lesion(s), as above. Freeze thaw cycles of 20s per appl ication were undertaken x 2 to actinic keratoses [...] skin damage confers signif icant increased risk, buttermaker helper, of both non-melanoma cutaneous malignancies lik e basal cell carcinoma and squamous cell carcinoma, as well as melanoma and othe r less common cutaneous malignancies like Garland cell carcinoma. This increased risk informs my recommendations for follow up total body skin exams for the pur poses of skin malignancy screening as well as my recommendations for changed pat ient behaviors regarding sun avoidance and self skin monitoring. I have provide d written instructions on these recommendations to the patient today. 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 Other Personal history of skin cancer Epidermal inclusion cyst new Chronic Stable Continue to monitor closely Return in about 2 weeks (around 06/10/2021) for Suture removal, nurse visit, 4mo.T BSE, history of NMSC. documented in this encounter Miscellaneous Notes * Assessment & Plan Note - Baldo Judge MD - 05/27/2021 7:51 AM CDT Associated Problem(s): Epidermal inclusion cyst Right penile shaft New Chronic Stable Continue to monitor closely * Assessment & Plan Note - Baldo Judge MD - 05/27/2021 7:50 AM CDT Associated Problem(s): AK (actinic keratosis) hands After informed verbal consent, including a discussion of risks (blistering, pain , erythema, crusting, infection, bleeding, skin pigment changes, lesion recurren ce and potential necessity of multiple liquid nitrogen treatments) and benefits, in addition to alternative treatments like field therapy, liquid nitrogen cryot herapy was applied to 4 lesion(s), as above. Freeze thaw cycles of 20s per appl ication were undertaken x 2 to actinic keratoses [...] skin damage confers signif icant increased risk, half-way, of both non-melanoma cutaneous malignancies lik e basal cell carcinoma and squamous cell carcinoma, as well as melanoma and othe r less common cutaneous malignancies like Garland cell carcinoma. This increased risk informs my recommendations for follow up total body skin exams for the pur poses of skin malignancy screening as well as my recommendations for changed pat ient behaviors regarding sun avoidance and self skin monitoring. I have provide d written instructions on these recommendations to the patient today. * Assessment & Plan Note - Baldo Judge MD - 05/27/2021 7:50 AM CDT Associated Problem(s): Verruca vulgaris L plnatar 5th digit and left plantar third digit After informed verbal consent, including a discussion of risks (lesion recurrenc e, blistering, pain, erythema, crusting, infection, bleeding, skin pigment browne es, lesion recurrence, and potential necessity for multiple liquid nitrogen heidi tments) and benefits, in addition to alternative treatments like topical medicat ions or observation, liquid nitrogen cryotherapy was applied to 2 verruca lesion (s), as above. 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
--- OUTSIDE RECORDS SUMMARY | 2021-05-28 07:36 | XMS REPORT | Encounter Summary ---
Author Author [facility] Organization [facility] Address Unknown Phone Unavailable Care Team Providers Care Supplier Engineer Name Role Phone Orville Willard MD PCP Reason for Visit * Reason Comments Skin Cancer Encounter Details Care Team Description Date Type Department Baldo Judge MD [address] [facility] [address] [place] [address] Personal history of skin cancer (Primary Dx); Squamous cell carcinoma of arm, left; Venous stasis dermatitis of both lower extremities; Dermatitis 05/13/2021 Procedure visit [facility] [address] [facility] [address] [place] [address] Social History Date Tobacco Use Types Packs/Day Years Used Started: 11/26/2014 Former Smoker Cigarettes 0.5 10 Smokeless Tobacco: Never Used Comments Alcohol Use Standard Drinks/Week No 0 (1 standard drink = 0.6 o z pure alcohol) Sex Assigned at Date Recorded Male 10/30/2020 9:39 AM LICENSED PROSTHETIST/ORTHOTIST documented as of this encounter Last Filed Vital Signs Reading Time Taken Comments Vital Sign 127/78 05/13/2021 8:19 AM CDT Blood Pressure 76 05/13/2021 8:19 AM CDT Pulse 36.2 C (97.1 F) 05/13/2021 8:19 AM CDT Temperature - - Respiratory Rate - - Oxygen Saturation - - Inhaled Oxygen Concentration 125.3 kg (276 lb 3.2 oz) 05/13/2021 8:19 AM CDT Weight - - Height 37.46 08/16/2019 12:32 PM LICENSED PROSTHETIST/ORTHOTIST Body Mass Index documented in this encounter Patient Instructions * Patient Instructions* Ralph Phelps MA - 05/13/2021 7:30 AM CDT Sutured Incision After-Care Instructions [...] of these agents such that you rece donnell one or the other every 4 hours. [...] my nurse, Mary LEMONS direct line is [phone]. If unable to reach her leave a message or may call Zulma LEMONS at [phone]. Compression stocking use: Your rash results from chronic swelling in your legs. Chronic leg swelling can be associated with some medication use as well as congestion in your veins from past surgeries on your legs, such as knee and hip replacements. Sometimes, swel ling in your legs isn't related to any of the above, but occurs because of todd ics or unique aspects of your anatomy. Over time, swelling in the legs can cause significant medical problems, such as ulcers that can become infected and cause significant systemic illness. From ti me-to-time, swelling in your legs causes asymptomatic, or itchy rashes that can spread to your arms. For these reasons, we treat leg swelling to prevent future medical problems. Th e best way to treat leg swelling is through consistent use of compression stocki ngs. Please refer to the following instructions: 1. Wear tight compression stockings. Tightness of stockings is rated based on pressure that is generated by the fabric. This pressure is measured in "millimet ers of mercury" or mmHg 2. Adequate pressure ratings should be at least 15 mmHg, preferably 20-30 mmHg. 3. You can buy compression stockings at local medical supply retailers or [employer] stores. I also like tidy stockings, these can be pu rchased on line. Even pharmacies like [employer] and [employer] carry these products, but higher quality hose/stockings are typically found at medical suppliers like: [employer] on [address] behind [address] harman 4. These compression stockings should be worn during all waking hours, every da y. Put your stockings on when you arise from bed in the morning, and take them off when going to bed at night. If you do not wear your stockings daily, your s ymptoms are far less likely to improve or resolve 5. Do not wear compression stockings if you have a history of blood clots in yo ur legs or lungs, or if you have been diagnosed with peripheral vascular disease . 6. It is best to visit a specialty medical supply store to purchase your compre ssion stockings because they can professionally measure and fit your stockings f or efficacy and comfort. Though compression stockings are sold at pharmacies li [facility] and [employer], I have found that stockings which have been professionall y fitted are more comfortable and effective If you have difficulty putting your compression stockings on, there are products sold (anywhere between $25-$150) that can help. One of these products is called the "Mediven Stocking Golden" and can be purchased on line or at medical supply retailers For more attractive compression stocking alternatives there is a jukebox coin collector ca lled [employer] that makes full length lower extremity compression apparel (stockings/h ose) for athletes and active individuals. This apparel can be worn similarly to the above mentioned regimen. This apparel is more attractive, is often sited as more comfortable by patients, and closely approximates the appearance of popular spandex bottoms. Recommended Medical Supply Stores for purchase of compression stockings: 1. [facility] - Locations: [place] [id number] [place] [address] [phone] [place], [place] [id number] [phone] [place] [id number] Doxycycline Instructions: Doxycycline MUST be taken with food otherwise there is a high likelihood that yo u will experience cramping, nausea, and/or vomiting. Other potential adverse ef fects include sore throat and heart burn. To avoid these, stay upright for appr oximately 45 minutes after taking doxycycline. Do not take doxycycline along wi th accutane as this can cause a rare adverse effect known as pseudotumor cerebri . If you should experience changes in vision or severe headaches while on doxyc ycline, stop the medication and call our office. Doxycycline can cause your skin to be extremely sensitive to the sun. If you ar e out in the sun unprotected while on doxycycline, you will experience severe roman n burn effects. It's important to wear sun screen each day, and reapply several times throughout the day, while on doxycycline. See the sun screen recommendat ions below for instructions on use of these products. Sun Protection: It is extremely important to protect your skin from the sun. Over the longterm , sun exposure can cause significant damage to your skin. Premature signs of ag ed skin, including wrinkles and discoloration, can ensue insidiously, even after limited, chronic exposure. Risk for skin cancers such as melanoma, basal cell carcinoma, and squamous cell carcinoma also increase with both acute and chronic sun exposure. Due to these effects, it's important to take steps to protect yourself from the sun. The best way to avoid the risks mentioned above is to avoid the sun. This isn't always practical, but it is the best way to minimize your risks. Most ca n't, and don't want to avoid the sun altogether, so minimizing exposure during t he hours of peak sun damage (10am-4pm) can help. If avoidance, especially during peak sun damage hours of 10am-4pm, is not possib le for you, it's important to apply sunscreen on a daily basis. The sunscreen p roduct that you choose should be rated SPF 30 or greater and, ideally, should in clude titanium dioxide or zinc oxide. Products from Masha CHACON, Rodri, and Britt Dorado are some of my favorites. There are terrific lekj-ntp-iveiiag facial m oisturizers that include sunscreen products, like Cetaphil Dermacontrol spf 30 ( purple lid) if you are oily or Cerave AM spf 30 if you are dry. Sunscreen products lose efficacy as time wears on throughout the day, so for thao quate protection, you should reapply your sunscreen product every 2 hours. Finally, when outdoors, sun protective clothing, including hats with wide brims, long-sleeved shirts, pants can be very effective in protecting from sun damage. There are companies that manufacture UV protective clothing (Solumbra, Coolibar) which can be worthwhile in conferring some additional protection from the sun. These products are nice, but can be costly. Confirmed no doxycycline allergy with the patient. Prescribed 100mg BID x 10 da ys. documented in this encounter Progress Notes * Baldo Judge MD - 05/13/2021 7:30 AM CDT SKIN MALIGNANCY EXCISION NOTE Patient: Donovan Sanchez Age: 66 y.o. : 1955 Sex: male History of Present Illness: Donovan Sanchez presents today for excision of skin malignancy as follows: Diagnosis: BCC Location: LUE proximal extensor B. Left upper extremity proximal extensor, shave: - Well-differentiated squamous cell carcinoma. - Deep margin positive. Also with rash on legs. is concerned about itching, excoriations. She inq uires as to cause and whether treatment can be undertaken Past Medical History: Diagnosis Date Abdominal pain [...] tablet, Take 1,000 mcg by mouth vivienne dickson., Disp: , Rfl: diphenoxylate-atropine (LOMOTIL) 2.5-0.025 mg [...] tablet, Take by mouth., Disp: 180, Rfl: doxycycline hyclate (VIBRA-TABS) 100 MG tablet, Take 1 tablet (100 mg total ) by mouth 2 (two) times a day., Disp: 20 tablet, Rfl: 0 fish oil-dha-epa 1,200-144-216 mg cap, Take 1 capsule by mouth daily., Disp : , Rfl: folic acid (FOLVITE) 400 MCG tablet, Take 400 mcg by mouth daily., Disp: , Rfl: Lactobac no.41-Bifidobact no.7 (PROBIOTIC-10) 70 mg (3 billion cell) cap, T minh by mouth daily., Disp: , Rfl: miscellaneous medical supply Kit, Compression stockings. 15-20mmHg. 3 mateo rs., Disp: 3 kit, Rfl: 1 nadolol (CORGARD) 40 MG tablet, Take by mouth. (Patient taking differently : Take 10 mg by mouth 2 (two) times a day. ), Disp: 255, Rfl: triamcinolone (KENALOG) 0.1 % cream, Apply topically 2 (two) times a day. D o not apply to face or skin folds, Disp: 454 g, Rfl: 1 Allergies Allergen Reactions Inflectra [Infliximab-Dyyb] Shut pt.'s kidneys down Opioids - Morphine Analogues Other (See Comments) and Syncope Cardiac Arrest Hydromorphone Hcl Other (See Comments) Difficulty breathing Latex, Natural Rubber Constipation Adverse Reaction Meperidine Hcl Other (See Comments) Adverse Reaction Oxycodone-Acetaminophen Hives Dyspnea OBJECTIVE: BP 127/78 | Pulse 76 | Temp 36.2 C (97.1 F) | Wt 125.3 kg (276 lb 3.2 oz) | BMI 37.46 kg/m Skin: brief skin exam conducted with pertinent findings as follows: Excision Procedure: Lesion diameter after curettage: 1yeK6ct Margins: 4mm Defect diameter: 19mm Defect length: 62mm Lidocaine 1% with 1:100,000 parts epinephrine use: 27mL After the correct patient was verified using [...] skin malignancy. Upon completion of this discussion, Donovan Sanchez agr eed to undergo the excision procedure [...] and minimize probability of infection and dehiscence. The wide undermining that was undertaken in this case was necessary given the si te and the tension loading at the edges of the incision. Given increased mobil ity here, the risk for dehiscence is greater. Undermining was undertaken to 20m m. Hemostasis was ascertained with electrocautery. Bleeding was verified as fully controlled. The defect was subsequently closed in a layered fashion. Defect edg es were brought together with 5 deep sutures using 4-0 Monocryl. The skin edge s approximated with 1 subcuticular, running suture using 5-0 monocryl. After the procedure, written wound care instructions were provided by the [facility] staff and petrolatum jelly was applied the excision site. A pressure bandage was fitted to the site and verbal instructions, summarizing the above mentioned written instructions, were conveyed to the patient by my nurse and by me. Recomm endations for follow up were conveyed to remove sutures from the surgical site. Vasculopath Obese Diabetic Immunosuppressed Confirmed no doxycycline allergy with the patient. Prescribed 100mg BID x 14 da ys. Problem List Dermatology Problems Dermatitis Current Assessment & Plan Bilateral upper extremities and lower extremities There is a component of stasis to this dermatitis in the lower extremities, but there appears to be also potential eczematous dermatitis versus lichenoid dermat itis. Consideration could be drug-induced given extensive list of medications. Compression as below, symptom management for now. Biopsies of the bilateral low er extremities could introduce risk of infection given me known suppressed statu s as well as body habitus. Defer for now Relevant Medications triamcinolone (KENALOG) 0.1 % cream Personal history of skin cancer - Primary Overview BCC R hand 06/2020 Pt can't recall name BCC L forearm 06/2020 Pt can't recall name BCC R neck 08/2018 Pt can't recall name 4. SCC Right dorsal hand Dr. Randall Fong December 2020 5. SCC Right forearm Dr. Judge February 26, 2021 exc 6. SCC Left forearm Dr. Judge exc March 12, 2021 7. SCC Right dorsal hand Randall Pending Mohs 8. SCC Left upper extremity proximal extensor Alfie Pending exc 05/13/2021 Venous stasis dermatitis of both lower extremities Current Assessment & Plan New Chronic TMC 0.1% cream Chronic Stasis dermatitis can progress to stasis ulceration leading to superinfection or chronic wounds resulting in morbidity Extensive counseling today regarding compression stockings. Further, provided c omprehensive written instructions on how to wear compression stockings as well a s directions regarding leg elevation above the level of the heart provided at [facility] today. Most effective therapy will be consistent, daily compression sto cking use. Emphasized importance with the patient prior to discharge. Emphasiz ed the role the utilization of compression stockings in prophylaxis of infection , stasis ulceration and other afflictions that are common as a result of retenti on of serum/fluid and subsequent edema and other sub-clinical changes secondary to stasis that may not be appreciable on exam. Also, provided patient with location and name of good medical supply store nearb y (included address, telephone number and name of the vendor with written instru ctions) as well as a prescription for compression stockings. See discharge inst ructions Relevant Medications miscellaneous medical supply Kit triamcinolone (KENALOG) 0.1 % cream Return in about 2 weeks (around 05/27/2021) for Suture removal, nurse visit. documented in this encounter Miscellaneous Notes * Assessment & Plan Note - Baldo Judge MD - 05/13/2021 8:06 AM CDT Associated Problem(s): Dermatitis Bilateral upper extremities and lower extremities There is a component of stasis to this dermatitis in the lower extremities, but there appears to be also potential eczematous dermatitis versus lichenoid dermat itis. Consideration could be drug-induced given extensive list of medications. Compression as below, symptom management for now. Biopsies of the bilateral low er extremities could introduce risk of infection given me known suppressed statu s as well as body habitus. Defer for now * Assessment & Plan Note - Ralph Phelps MA - 05/13/2021 8:00 AM CDT Associated Problem(s): Venous stasis dermatitis of both lower extremities New Chronic TMC 0.1% cream Chronic Stasis dermatitis can progress to stasis ulceration leading to superinfection or chronic wounds resulting in morbidity Extensive counseling today regarding compression stockings. Further, provided c omprehensive written instructions on how to wear compression stockings as well a s directions regarding leg elevation above the level of the heart provided at [facility] today. Most effective therapy will be consistent, daily compression sto cking use. Emphasized importance with the patient prior to discharge. Emphasiz ed the role the utilization of compression stockings in prophylaxis of infection , stasis ulceration and other afflictions that are common as a result of retenti on of serum/fluid and subsequent edema and other sub-clinical changes secondary to stasis that may not be appreciable on exam. Also, provided patient with location and name of good medical supply store nearb y (included address, telephone number and name of the vendor with written instru ctions) as well as a prescription for compression stockings. See discharge inst ructions documented in this encounter Plan of Treatment Care Team Description Date Type Specialty 06/10/2021 Nurse Only Dermatology Forrest Pereira MD [facility] [address] [id number] 06/15/2021 Procedure visit Dermatology documented as of this encounter Procedures Comments Procedure Name Priority Date/Time Associated Diag nosis TISSUE PATHOLOGY OR Routine 05/13/2021 Squamous c ell carcinoma BIOPSY 8:08 AM CDT of arm, left documented in this encounter Results * Tissue Pathology or Biopsy (05/13/2021 8:08 AM CDT) Specimen Tissue Narrative Performed At [facility] SURGICAL PATHOLOGY REPORT Patient Name: DONOVAN SANCHEZ /Age/Sex:1955 (Age: 66) /M MR N: [id number] Specimen #: [id number] ##################MICROSCOPIC INTERPRET ATION################## Left upper extremity proximal extensor, excision: - Changes consistent with reactio n to prior procedure. - Residual squamous cell carcinoma not identified. Luis Mejia Jr., MD, FASDP Report Electronically Signed Out SS: 05/18/21 [facility] [place] Test performed by [facility] [address] [place] [address]. CLIA # [id number] Clinical History/Impression: Left upper extremity proximal extensor: prior biopsy diagnosis of well-differentiated squamous cell carci noma (see [facility] [id number] on 03/31/2021). Specimen Labeled: Left upper extremity [...] Organization Address City/State/ZIP Code P cheryl Number [facility] [address] [facility] [place] [phone] [id number] documented in this encounter Visit Diagnoses Diagnosis Personal history of skin cancer - Prima ry Personal history of other malignant carmen plasm of skin Squamous cell carcinoma of arm, left Venous stasis dermatitis of both lower extremities Dermatitis Contact dermatitis and other eczema, du e to unspecified cause documented in this encounter
[2021-05-28 08:00] VITALS: BP 148/81
--- NOTE | 2021-05-28 08:07 | ED General ---
General Stated Complaint: WOUND CHECK History of Present Illness Date Seen by Provider: May 28, 2021 Time Seen by Provider: 08:02 Initial Comments 66-year-old male presents for wound recheck. Patient had a lesion removed yesterday at the dermatology clinic. Comes in today because his continue to sleep little bit and there was significant amount of bruising/hematoma he had not experienced this before. Patient is on Eliquis. He wanted to be sure that there was no infection. The bleeding has basically resolved now. He had no other complaints. Allergies and Home Medications Allergies Coded Allergies: morphine (Unverified Allergy, Severe, HEART STOPPED, 11/17/18) hydromorphone HCl (Unverified Allergy, Mild, HIVES, 12/25/19) oxycodone (Unverified Allergy, Mild, HIVES, 12/25/19) infliximab-dyyb (Unverified Adverse Reaction, Severe, ATRIAL FIB, 12/05/18) PT WENT INTO A FIB WHILE RECEIVING INFUSION meperidine HCl (Unverified Adverse Reaction, Mild, N/V, 11/17/18) Home Medications Aripiprazole 10 Mg Tablet, 10 MG PO DAILY, (Reported) Azathioprine 50 Mg Tablet, 150 MG PO DAILY, (Reported) TAKES 3 (50MG) TABLETS Azathioprine 100 Mg Tablet, 250 MG PO DAILY, (Reported) Cholestyramine 5 Gm Powder, 4 GM PO BID PRN for DIARRHEA, (Reported) Cyanocobalamin 1,000 Mcg/Ml Inj, 1,000 MCG IM MONTHLY, (Reported) Diphenoxylate HCl/Atropine 1 Each Tablet, 2 TAB PO TID, (Reported) Doxazosin Mesylate 1 Mg Tablet, 1 MG PO HS, (Reported) USE IF SYSTOLIC BP IS <180 Ergocalciferol (Vitamin D2) 2,000 Unit Tablet, 50,000 UNIT PO Mo, (Reported) Fish Oil/Dha/Epa 1 Each Capsule, 1,200 MG PO DAILY, (Reported) Folic Acid 0.4 Mg Tablet, 0.4 MG PO DAILY, (Reported) Infliximab 100 Mg Soln, 10 MG IV Q6 WEEKS, (Reported) L.acidoph & Paracasei,B.lactis 1 Each Capsule, 1 CAP PO DAILY, (Reported) Loperamide HCl 2 Mg Tablet, 2 MG PO TID PRN for DIARRHEA, (Reported) Magnesium Oxide 400 Mg Tablet, 400 MG PO BID, (Reported) Metoprolol Succinate 200 Mg Tab.er.24h, 200 MG PO BID, (Reported) Montelukast Sodium 10 Mg Tablet, 10 MG PO HS, (Reported) Multivitamin 1 Each Tablet, 1 TAB PO DAILY, (Reported) Pantoprazole Sodium 40 Mg Tablet.dr, 40 MG PO DAILY, (Reported) Paroxetine HCl 30 Mg Tablet, 30 MG PO DAILY, (Reported) Phenazopyridine HCl 200 Mg Tablet, 1 TAB PO TID Prescribed by: ELIZABETH BARROSO on 12/26/191108 Potassium Citrate 10 Meq Tablet.er, 10 MEQ PO TID, (Reported) Simvastatin 10 Mg Tablet, 10 MG PO DAILY, (Reported) Sulfamethoxazole/Trimethoprim 1 Each Tablet, 1 EACH PO BID Prescribed by: ELIZABETH BARROSO on 12/26/19 112 Tadalafil 5 Mg Tablet, 5 MG PO PRN, (Reported) Tamsulosin HCl 0.4 Mg Cap, 0.4 MG PO HS, (Reported) Tamsulosin HCl 0.4 Mg Cap, 0.4 MG PO DAILY Prescribed by: ELIZABETH BARROSO on 12/26/191108 Tramadol HCl 50 Mg Tablet, 1-2 TAB PO Q4H PRN for PAIN-MODERATE (5-7) Prescribed by: ELIZABETH BARROSO on 12/26/191108 Patient Home Medication List Home Medication List Reviewed: Yes Review of Systems Review of Systems Constitutional: no symptoms reported EENTM: no symptoms reported Respiratory: no symptoms reported Cardiovascular: no symptoms reported Genitourinary: no symptoms reported Skin: see HPI Psychiatric/Neurological: No Symptoms Reported Hematologic/Lymphatic: No Symptoms Reported Past Xdqwtsp-Emvodt-Gbvagi Hx Immunizations Up To Date PED Vaccines UTD: Yes Seasonal Allergies Seasonal Allergies: No Past Medical History Surgeries: Yes (SMALL BOWEL RESECTION, HERNIA, KIDNEY STONES, NECK,TESTICULAR MASS) Abdominal, Appendectomy, Bowel Surgery, Gallbladder, Tonsillectomy, Vasectomy Respiratory: Yes Sleep Apnea Currently Using CPAP: Yes Currently Using BIPAP: No Cardiac: Yes (CARDIOVERSION 11/16/18) Atrial Fibrillation, High Cholesterol, Hypertension Neurological: No Reproductive Disorders: No Sexually Transmitted Disease: No HIV/AIDS: No Genitourinary: Yes (HX ESWL) Benign Prostatic Hyperpl, Kidney Stones Gastrointestinal: Yes (REMICADE (ALLERGY INFLECTRA)) Abdominal Hernia, Crohns Disease, Chronic Diarrhea Musculoskeletal: Yes Arthritis Endocrine: Yes (CUSHINGS DISEASE) Adrenal Disease HEENT: No (GLASSES, DETNURES) Loss of Vision: Denies Hearing Impairment: Denies Cancer: Yes Skin Did You Recieve Any Treatments: Yes What Type of Treatment Did You: Surgical Intervention Psychosocial: Yes Depression Integumentary: No Blood Disorders: No Adverse Reaction/Blood Tranf: No (N/A) Family Medical History Patient reports no known family medical history. Heart Disease, Diabetes, Other Conditions/Hx Physical Exam Vital Signs Capillary Refill : Height, Weight, BMI Height: 6'0" Weight: 260lbs. 0.0oz. 117.038947mi; 36.83 BMI Method:Stated General Appearance: No Apparent Distress, WD/WN Respiratory: Lungs Clear, Normal Breath Sounds Cardiovascular: Regular Rate, Rhythm, Normal Peripheral Pulses Gastrointestinal: Non Tender, Soft Extremity: Normal Capillary Refill, Normal Inspection, Normal Range of Motion Neurologic/Psychiatric: Alert, Oriented x3 Skin: Other (Post surgical incision right hip, has a large surrounding hematoma, no active bleeding, clean dry, and intact) Progress/Results/Core Measures Suspected Sepsis SIRS Temperature: Pulse: Respiratory Rate: Blood Pressure / Mean: Results/Orders Vital Signs/I&O Capillary Refill : Progress Note : Time: 08:13 Progress Note Patient incision is clean dry intact, healing appropriately. He does have a surrounding hematoma/bruising. Discussed with him due to his Eliquis. I did recommend he call and make his dermatology clinic aware of it. Also discussed with him signs of infection to watch for. Wound was redressed and patient was discharged home in stable condition Departure Impression Primary Impression: Encounter for wound re-check Disposition: 01 HOME, SELF-CARE Condition: Stable Departure-Patient Inst. Referrals: MK CRONIN MD (PCP/Family) Primary Care Physician Patient Instructions: Wound Care ED Add. Discharge Instructions: Please contact your dermatology office for further outpatient instructions and management Return to the ER as needed NINA EDWARDS DO May 28, 2021 08:07
[2021-05-29] MEDS ORDERED: AZIT500T9 PO (09:06)
== END 2021-05-28 08:15 | disposition home or self-care (01) ==
LOC: EDUNIT# 07:31 → ER FS 07:32
DX: Z48.00 Encounter for change or removal of nonsurgical wound dressing (principal); G47.30 Sleep apnea, unspecified; I10 Essential (primary) hypertension; N40.0 Benign prostatic hyperplasia without lower urinary tract symptoms; E78.00 Pure hypercholesterolemia, unspecified; K50.90 Crohn's disease, unspecified, without complications; F32.9 Major depressive disorder, single episode, unspecified; Z79.899 Other long term (current) drug therapy

== ENCOUNTER 2021-05-29 07:29 | Emergency (ER) | payer MEDICARE, OTHER ==
[~2021-05-29] VITALS: Ht 182.9 cm; Wt 124.6 kg
--- OUTSIDE RECORDS SUMMARY | 2021-05-29 07:35 | XMS REPORT | Clinical Summary ---
Author Author [facility] Organization [facility] Address Unknown Phone Unavailable Care Team Providers Care Senior Controls Analyst Name Role Phone Orville Willard MD PCP [...] patient with location an d name of [employer] supply store nearby (included address, telephone num [...] actinic skin damage confers significant increased risk, fdc, of both non-melanoma cutaneous malignancies like basal [...] patient to follow up regularly with a programs manager for skin checks. The patient. Further , [...] r the areas were tested for anesthesia, [id number] scalpel was us ed to perform shave [...] care instructi ons were provided by the bilingual medical receptionist at time of discharge. Further, written communication regardin g the risk of morbidity stemming from treatment of cutaneous malignancy, for which we are testing today, was provided to the patient at the time of discharge. Due to the COVID-19 [facility], we are forgoing written consent in order to protect patients fr om surface contact with potential fomites which could facilitate virus tr ansmission. Due to the COVID-19 [facility], we are forgoing written consent [...] Encounters Care Team Description Date Type Specialty Mary Melchor RN 05/28/2021 Telephone Dermatology Baldo Judge MD Sebaceous neoplasia of skin [...] extremities; Dermatitis 05/13/2021 Procedure visit Dermatology El Angeol MD Crohn's disease of both small and large intestine without complication (HCC) (Primary Dx) 04/30/2021 Office Visit Gastroenterology Kaya Carlson RN Results (need mohs to right dorsal hand dx SCC (M.F. 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 Last Filed Vital Signs Reading Time Taken Comments Vital Sign 130/82 05/27/2021 8:12 AM CDT Blood Pressure 71 05/27/2021 8:12 AM CDT Pulse 36.6 C (97.8 F) 05/27/2021 8:12 AM CDT Temperature 16 11/26/2019 8:07 AM LAMP MECHANIC Respiratory Rate 97% 11/26/2019 8:07 AM LAMP MECHANIC Oxygen Saturation - - Inhaled Oxygen Concentration 126 kg (277 lb 12.8 oz) 05/27/2021 8:12 AM CDT Weight 182.9 cm (6') 08/16/2019 12:32 PM LAMP MECHANIC Height 37.68 08/16/2019 12:32 PM LAMP MECHANIC Body Mass Index Plan of Treatment Care Team Description Date Type Specialty 06/10/2021 Nurse Only Dermatology Forrest Pereira MD [address] [address] [phone] 06/15/2021 Procedure visit Dermatology Health Maintenance Due [...] is included. Specimen Tissue Narrative Performed At [facility] SURGICAL PATHOLOGY REPORT Patient Name: DONOVAN SANCHEZ /Age/Sex:1955 (Age: 66) /M MR N: [id number] Specimen #: [id number] ##################MICROSCOPIC INTERPRET ATION################## Left upper extremity proximal extensor, excision: - Changes consistent with reactio n to prior procedure. - Residual squamous cell carcinoma not identified. Luis Mejia Jr., MD, FASDP Report Electronically Signed Out SS: 05/18/21 [facility] [employer] Test performed by [facility] [address] [place] [address]. 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 Specimen Labeled: Left upper extremity [...] cheryl Number [id number] [place], [place] [address] [id number] from Last 3 Months Insurance Type Payer Benefit Subscriber ID Effective Phone Address Plan / Dates Group Medicare MEDICARE MEDICARE [id number] 2006-P [place] PART A B resent [place], [place] COMMERCIAL-NONCONTRACTED MISC [id number] COMMERCIAL resent NONCONTRAC IRENE 1 Donovan Sanchez Personal/F Self 1955 [address] am[place] (Home) [place] [id number] 1 Donovan Sanchez Personal/F Self [address] [place]Home) [place] [address] 1 Advance Directives For more information, please contact: [phone] Patient Magazine Journalist Explanation Type Date Recorded Advance Directives and Living Will Power of Dragline Operator Helper Health Care 01/06/2014 11:02 AM Directive
--- OUTSIDE RECORDS SUMMARY | 2021-05-29 07:35 | XMS REPORT | Encounter Summary ---
Author Author [facility] Organization [facility] Address Unknown Phone Unavailable Care Team Providers Care Nut Roaster Helper Name Role Phone Orville Willard MD PCP Encounter Details Care Team Description Date Type Department Baldo Judge MD [address] [facility] [address] [place], [place] [phone] 05/26/2021 Documentation [facility] [address] [facility] [address] [place] [phone] Social History Date Tobacco Use Types Packs/Day Years Used Started: 11/26/2014 Former Smoker Cigarettes 0.5 10 Smokeless Tobacco: Never Used Comments Alcohol Use Standard Drinks/Week No 0 (1 standard drink = 0.6 o z pure alcohol) Sex Assigned at Date Recorded 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
--- OUTSIDE RECORDS SUMMARY | 2021-05-29 07:35 | XMS REPORT | Encounter Summary ---
Author Author [facility] Organization [facility] Address Unknown Phone Unavailable Care Team Providers Care Mess Attendant Crew Name Role Phone Orville Willard MD PCP Encounter Details Care Team Description Date Type Department Mary Melchor RN 05/28/2021 Telephone [facility] [address] [phone] Social History Date Tobacco Use Types Packs/Day Years Used Started: 11/26/2014 Former Smoker Cigarettes 0.5 10 Smokeless Tobacco: Never Used Comments Alcohol Use Standard Drinks/Week No 0 (1 standard drink = 0.6 o z pure alcohol) Sex Assigned at Date Recorded 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 Patient states he and his attempted to hold pre ssure but were unable to stop bleeding. Per patient ED replaced steri-strips live t had fallen off and applied new dressing. Patient reports no current bleeding o r pain. Asked patient contact clinic with any changes. documented in this encounter Plan of Treatment Care Team Description Date Type Specialty 06/10/2021 Nurse Only Dermatology Forrest Pereira MD [address] [phone] 06/15/2021 Procedure visit Dermatology documented as of this encounter Visit Diagnoses Not on filedocumented in this encounter
--- OUTSIDE RECORDS SUMMARY | 2021-05-29 07:35 | XMS REPORT | Encounter Summary ---
Author Author [facility] Organization [facility] Address Unknown Phone Unavailable Care Team Providers Care Baseball Umpire For Little [employer] Name Role Phone Orville Willard MD PCP Reason for Visit * Reason Comments Spots Encounter Details Care Team Description Date Type Department Baldo Judge MD [address] [facility] [address] [place] [address] Sebaceous neoplasia of skin determined b y biopsy (Primary Dx); Personal history of skin cancer; Verruca vulgaris; AK (actinic keratosis); Epidermal inclusion cyst 05/27/2021 Procedure visit [facility] [address] [facility] [address] [place] [address] Social History Date Tobacco Use Types Packs/Day Years Used Started: 11/26/2014 Former Smoker Cigarettes 0.5 10 Smokeless Tobacco: Never Used Comments Alcohol Use Standard Drinks/Week No 0 (1 standard drink = 0.6 o z pure alcohol) Sex Assigned at Date Recorded 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 If unable to reach her leave a message or may call Zulma LEMONS at [phone]. documented in this encounter Progress Notes * [...] punctum Excision Procedure: Lesion diameter after curettage: [id number] Margins: 4mm Defect diameter: 24mm Defect length: [...] wound care instructions were provided by the [facility] g staff and petrolatum jelly was applied [...] skin damage confers signif icant increased risk, intermediate manager, of both non-melanoma cutaneous malignancies lik e basal cell carcinoma and squamous cell carcinoma, as well as melanoma and othe r less common cutaneous malignancies like [place] cell carcinoma. This increased risk informs my [...] skin damage confers signif icant increased risk, skilled nursing, of both non-melanoma cutaneous malignancies lik e basal cell carcinoma and squamous cell carcinoma, as well as melanoma and othe r less common cutaneous malignancies like [place] cell carcinoma. This increased risk informs my [...] 06/10/2021 Nurse Only Dermatology Forrest Pereira MD [address] [place] [phone] 06/15/2021 Procedure visit Dermatology Order Schedule Name [...]
[2021-05-29] MEDS ORDERED: NS IV 1000 ML 1,000 ML IV SCH (07:45)
--- NOTE | 2021-05-29 07:48 | ED General ---
General Chief Complaint: Fever-Adult/Adol Stated Complaint: FEVER POST SURGERY Source of Information: Patient History of Present Illness Date Seen by Provider: May 29, 2021 Time Seen by Provider: 07:31 Initial Comments 66 yo male presenting with complaints of fever up to 102F overnight and cough with shortness of breath that developed overnight as well. He just had a lesion removed from his right hip by Business Functional Analyst and was seen in ED yesterday due to concerns for continued oozing from the wound. He has had no purulent drainage from the wound. He is on Eliquis as a blood thinner and has bruising and hemato ma around the surgical site on right hip and bleeding controlled. There was some old dried blood on the dressing this am but again no purulent drainage. he has coughed to the point he almost vomited but has not really had anything come up with cough. He uses CPAP for TSAH but denies other pulmonary disease such as asthma, COPD, Emphysema or chronic bronchitis. He had fever to 102 F at 430 am when he last took Acetaminophen. He did get his 3rd booster shot of Moderna for Covid vaccine on TuesdayMay 25. He denies abdominal pain, nausea, vomiting, dysuria. Timing/Duration: 12-24 Hours Severity: Moderate Associated Systoms: No Chest Pain; Cough; No Diaphoresis; Fever/Chills; No Headaches, No Loss of Appetite, No Malaise, No Nausea/Vomiting, No Rash, No Seizure; Shortness of Air; No Syncope, No Weakness Allergies and Home Medications Allergies Coded Allergies: morphine (Unverified Allergy, Severe, HEART STOPPED, 11/17/18) hydromorphone HCl (Unverified Allergy, Mild, HIVES, 12/25/19) oxycodone (Unverified Allergy, Mild, HIVES, 12/25/19) infliximab-dyyb (Unverified Adverse Reaction, Severe, ATRIAL FIB, 12/05/18) PT WENT INTO A FIB WHILE RECEIVING INFUSION meperidine HCl (Unverified Adverse Reaction, Mild, N/V, 11/17/18) Home Medications Aripiprazole 10 Mg Tablet, 10 MG PO DAILY, (Reported) Azathioprine 50 Mg Tablet, 150 MG PO DAILY, (Reported) TAKES 3 (50MG) TABLETS Azathioprine 100 Mg Tablet, 250 MG PO DAILY, (Reported) Azithromycin 500 Mg Tablet, 500 MG PO DAILY Prescribed by: WATSON ALBERTO on 05/29/21 0906 Cholestyramine 5 Gm Powder, 4 GM PO BID PRN for DIARRHEA, (Reported) Cyanocobalamin 1,000 Mcg/Ml Inj, 1,000 MCG IM MONTHLY, (Reported) Diphenoxylate HCl/Atropine 1 Each Tablet, 2 TAB PO TID, (Reported) Doxazosin Mesylate 1 Mg Tablet, 1 MG PO HS, (Reported) USE IF SYSTOLIC BP IS <180 Ergocalciferol (Vitamin D2) 2,000 Unit Tablet, 50,000 UNIT PO Mo, (Reported) Fish Oil/Dha/Epa 1 Each Capsule, 1,200 MG PO DAILY, (Reported) Folic Acid 0.4 Mg Tablet, 0.4 MG PO DAILY, (Reported) Infliximab 100 Mg Soln, 10 MG IV Q6 WEEKS, (Reported) L.acidoph & Paracasei,B.lactis 1 Each Capsule, 1 CAP PO DAILY, (Reported) Loperamide HCl 2 Mg Tablet, 2 MG PO TID PRN for DIARRHEA, (Reported) Magnesium Oxide 400 Mg Tablet, 400 MG PO BID, (Reported) Metoprolol Succinate 200 Mg Tab.er.24h, 200 MG PO BID, (Reported) Montelukast Sodium 10 Mg Tablet, 10 MG PO HS, (Reported) Multivitamin 1 Each Tablet, 1 TAB PO DAILY, (Reported) Pantoprazole Sodium 40 Mg Tablet.dr, 40 MG PO DAILY, (Reported) Paroxetine HCl 30 Mg Tablet, 30 MG PO DAILY, (Reported) Phenazopyridine HCl 200 Mg Tablet, 1 TAB PO TID Prescribed by: ELIZABETH BARROSO on 12/26/19 110 Potassium Citrate 10 Meq Tablet.er, 10 MEQ PO TID, (Reported) Simvastatin 10 Mg Tablet, 10 MG PO DAILY, (Reported) Sulfamethoxazole/Trimethoprim 1 Each Tablet, 1 EACH PO BID Prescribed by: ELIZABETH BARROSO on 12/26/19 1129 Tadalafil 5 Mg Tablet, 5 MG PO PRN, (Reported) Tamsulosin HCl 0.4 Mg Cap, 0.4 MG PO HS, (Reported) Tamsulosin HCl 0.4 Mg Cap, 0.4 MG PO DAILY Prescribed by: ELIZABETH BARROSO on 12/26/19 1109 Tramadol HCl 50 Mg Tablet, 1-2 TAB PO Q4H PRN for PAIN-MODERATE (5-7) Prescribed by: ELIZABETH BARROSO on 12/26/19 2454 Patient Home Medication List Home Medication List Reviewed: Yes Review of Systems Review of Systems Constitutional: chills, fever EENTM: no symptoms reported Respiratory: cough Cardiovascular: no symptoms reported Gastrointestinal: no symptoms reported Genitourinary: no symptoms reported Musculoskeletal: other (pain to right hip where he had biopsy) Skin: change in color (bruising to right hip where he had biopsy) Psychiatric/Neurological: Anxiety Hematologic/Lymphatic: Easy Bleeding (on Eliquis), Easy Bruising (on Eliquis) Past Pojcflu-Dbfjwc-Xrxggi Hx Immunizations Up To Date PED Vaccines UTD: Yes Seasonal Allergies Seasonal Allergies: No Past Medical History Surgery/Hospitalization HX: Skin cancers, HTN, Crohn's, [place] Dz, BPH, A Fib Surgeries: Yes (SMALL BOWEL RESECTION, HERNIA, KIDNEY STONES, NECK,TESTICULAR MASS) Abdominal, Appendectomy, Bowel Surgery, Gallbladder, Tonsillectomy, Vasectomy Respiratory: Yes Sleep Apnea Currently Using CPAP: Yes Currently Using BIPAP: No Cardiac: Yes (CARDIOVERSION 11/16/18) Atrial Fibrillation, High Cholesterol, Hypertension Neurological: No Reproductive Disorders: No Sexually Transmitted Disease: No HIV/AIDS: No Genitourinary: Yes (HX ESWL) Benign Prostatic Hyperpl, Kidney Stones Gastrointestinal: Yes (REMICADE (ALLERGY INFLECTRA)) Abdominal Hernia, Crohns Disease, Chronic Diarrhea Musculoskeletal: Yes Arthritis Endocrine: Yes (CUSHINGS DISEASE) Adrenal Disease HEENT: No (GLASSES, DETNURES) Loss of Vision: Denies Hearing Impairment: Denies Cancer: Yes Skin Did You Recieve Any Treatments: Yes What Type of Treatment Did You: Surgical Intervention Psychosocial: Yes Depression Integumentary: No Blood Disorders: No Adverse Reaction/Blood Tranf: No (N/A) Family Medical History Patient reports no known family medical history. Heart Disease, Diabetes, Other Conditions/Hx Physical Exam Vital Signs Vital Signs - First Documented 05/29/21 07:42 Temp 37.3 Pulse 82 Resp 18 B/P (MAP) 116/62 (80) Pulse Ox 97 O2 Delivery Room Air Capillary Refill : Height, Weight, BMI Height: 6'0" Weight: 260lbs. 0.0oz. 117.063313db; 38.00 BMI Method:Stated General Appearance: Anxious, Obese HEENT: PERRL/EOMI Neck: Full Range of Motion, Normal Inspection, Non Tender, Supple Respiratory: Chest Non Tender, No Accessory Muscle Use, No Respiratory Distress, Decreased Breath Sounds Cardiovascular: Regular Rate, Rhythm, Normal Peripheral Pulses Gastrointestinal: Normal Bowel Sounds, No Pulsatile Mass, Non Tender, Soft Extremity: Normal Capillary Refill, No Pedal Edema, Other (mild tenderness and bruising to right hip area where he had biopsy done. No active bleeding. no purulent drainage) Neurologic/Psychiatric: Alert, Oriented x3, No Motor/Sensory Deficits, security developer II- XII Norm as Tested Skin: Warm/Dry, Ecchymosis (right hip) Focused Exam Lactate Level 05/29/21 07:50: Lactic Acid Level 1.39 Lactic Acid Level Laboratory Tests Test 05/29/21 07:50 Lactic Acid Level 1.39 MMOL/L (0.50-2.00) Progress/Results/Core Measures Suspected Sepsis SIRS Temperature: Pulse: Respiratory Rate: Laboratory Tests 05/29/21 07:50: White Blood Count 6.2 Blood Pressure / Mean: 05/29/21 07:50: Lactic Acid Level 1.39 Laboratory Tests 05/29/21 07:50: Creatinine 1.09, Platelet Count 98L, Total Bilirubin 0.4 Results/Orders Lab Results Laboratory Tests Test 05/29/21 07:50 Range/Units White Blood Count 6.2 4.3-11.0 10^3/uL Red Blood Count 4.40 4.30-5.52 10^6/uL Hemoglobin 13.2 L 13.3-17.7 g/dL Hematocrit 42 40-54 % Mean Corpuscular Volume 96 80-99 fL Mean Corpuscular Hemoglobin 30 25-34 pg Mean Corpuscular Hemoglobin Concent 31 L 32-36 g/dL Red Cell Distribution Width 13.2 10.0-14.5 % Platelet Count 98 L 130-400 10^3/uL Mean Platelet Volume 12.8 H 9.0-12.2 fL Immature Granulocyte % (Auto) 0 % Neutrophils (%) (Auto) 62 42-75 % Lymphocytes (%) (Auto) 13 12-44 % Monocytes (%) (Auto) 19 H 0-12 % Eosinophils (%) (Auto) 5 0-10 % Basophils (%) (Auto) 1 0-10 % Neutrophils # (Auto) 3.9 1.8-7.8 X 10^3 Lymphocytes # (Auto) 0.8 L 1.0-4.0 X 10^3 Monocytes # (Auto) 1.2 H 0.0-1.0 X 10^3 Eosinophils # (Auto) 0.3 0.0-0.3 10^3/uL Basophils # (Auto) 0.0 0.0-0.1 10^3/uL Immature Granulocyte # (Auto) 0.0 0.0-0.1 10^3/uL Neutrophils % (Manual) 57 % Lymphocytes % (Manual) 8 % Monocytes % (Manual) 22 % Eosinophils % (Manual) 5 % Basophils % (Manual) 1 % Metamyelocytes % 1 % Band Neutrophils 1 % Atypical Lymphocytes 5 % Platelet Estimate DECREASED Percent Immature Platelet Fraction 7.6 0.0-7.6 % Blood Morphology Comment NORMAL Sodium Level 134 L 135-145 MMOL/L Potassium Level 4.4 3.6-5.0 MMOL/L Chloride Level 101 98-107 MMOL/L Carbon Dioxide Level 24 21-32 MMOL/L Anion Gap 9 5-14 MMOL/L Blood Urea Nitrogen 8 7-18 MG/DL Creatinine 1.09 0.60-1.30 MG/DL Estimat Glomerular Filtration Rate 68 BUN/Creatinine Ratio 7 Glucose Level 134 H 70-105 MG/DL Lactic Acid Level 1.39 0.50-2.00 MMOL/L Calcium Level 8.7 8.5-10.1 MG/DL Corrected Calcium 8.9 8.5-10.1 MG/DL Total Bilirubin 0.4 0.1-1.0 MG/DL Aspartate Amino Transf (AST/SGOT) 65 H 5-34 U/L Alanine Aminotransferase (ALT/SGPT) 35 0-55 U/L Alkaline Phosphatase 93 40-136 U/L C-Reactive Protein 1.96 H <0.50 MG/DL Total Protein 7.2 6.4-8.2 GM/DL Albumin 3.7 3.2-4.5 GM/DL My Orders Orders - WATSON ALBERTO MD Cbc With Automated Diff (05/29/21 07:41) Comprehensive Metabolic Panel (05/29/21 07:41) Blood Culture (05/29/21 07:41) Chest 1 View Ap/Pa Only (05/29/21 07:41) Ed Iv/Invasive Line Start (05/29/21 07:41) Lactic Acid Analyzer (05/29/21 07:41) Ns Iv 1000 Ml (Sodium Chloride 0.9%) (05/29/21 07:45) Wound Dressing-Ed (05/29/21 07:42) Crp Fs (05/29/21 07:41) Manual Differential (05/29/21 07:50) Azithromycin Tablet (Zithromax Tablet) (05/29/21 09:01) Vital Signs/I&O 05/29/21 07:42 Temp 37.3 Pulse 82 Resp 18 B/P (MAP) 116/62 (80) Pulse Ox 97 O2 Delivery Room Air Capillary Refill : Progress Note #1: Progress Note check labs, cxr, blood cultures with lactic acid, urine. Give IVF for hydration. O2 sat is 95-98% on room air. Differential diagnosis includes pneumonia, Covid, bronchitis, sepsis Progress Note #2: Time: 08:44 Progress Note CBC without elevation of WBC count. He has no acute process on CXR. Chemistry stable without acute significant abnormality other than mild elevation of CRP which could be from reaction with healing at recent biopsy site. Lactic acid normal at 1.39. Will discuss if pt wants to do COVID test or just take treatment for possible early pneumonia. Progress Note #3: Progress Note Treat with Zithromax for possible early lung infection. Mucinex to help loosen congestion. Check with the clinic for continued concerns and treat fever over 101 F but if continued fever past 48 hours or worsening symptoms then get rechecked. Pt declined Covid testing as he felt it was not that and did not want tested for it. Encourage hydration as well since he has dark colored urine and might be slightly dehydrated as well. Attempted to infuse a Liter of NS by IV but it was going slow and when attempted to place on pressure bag the vein infiltrated. Since he has no n/v/d discharge to home to hydrate by mouth. Diagnostic Imaging Diagonstic Imaging: Xray Plain Films/CT/US/NM/MRI: chest Comments NAME: DONOVAN SANCHEZ [facility] REC#: [id number] PT STATUS: REG ER : 1955 PHYSICIAN: WATSON ALBERTO MD ADMIT DATE: 05/29/21/ER FS Draft Date of Exam:05/29/21 CHEST 1 VIEW AP/PA ONLY INDICATION: Fever and cough and shortness of breath of breath. TIME OF EXAM: 7:39 AM Correlation is made prior chest from 04/03/2019. The heart size is normal. The pulmonary vascularity is unremarkable. The lungs are clear. No infiltrate, effusion or pneumothorax is detected. Impression: No acute cardiopulmonary process is detected. Dictated on workstation # [id number] Dict: 05/29/21815 Trans: 05/29/21822 [facility] [id number] Interpreted by: FANTASMA RADER MD Electronically signed by: Departure Impression Primary Impression: Fever in adult Additional Impressions: Cough in adult Upper respiratory infection with cough and congestion Disposition: 01 HOME, SELF-CARE Condition: Stable Departure-Patient Inst. Decision time for Depature: 09:02 Referrals: MK CRONIN MD (PCP/Family) Primary Care Physician Patient Instructions: Upper Respiratory Infection ED, Fever, Adult ED, Cough, Adult ED Add. Discharge Instructions: Stay well hydrated and drink plenty of fluids. Take the full course of antibiotics to treat for possible early lung infection. Use Mucinex over the counter to help with congestion and loosen your cough. You may still have fever in the next 36-48 hours but then the antibiotics should have kicked in to treat infection and fever should go away. In the meantime, if you have a fever over 101 F then you may treat that to help keep your temperature from being so high. All discharge instructions reviewed with patient and/or family. Voiced understanding. Scripts Azithromycin (Azithromycin) 500 Mg Tablet 500 MG PO DAILY for 4 Days, #4 TAB 0 Refills Prov: WATSON ALBERTO MD 05/29/21 WATSON ALBERTO MD May 29, 2021 07:48
[2021-05-29 08:05] LABS: HEMATOCRIT 42 % (40-54); HEMOGLOBIN 13.2 g/dL (13.3-17.7); MEAN CORPUSCULAR HEMOGLOBIN 30 pg (25-34); WHITE BLOOD COUNT 6.2 10^3/uL (4.3-11.0)
[2021-05-29 08:06] LABS: MEAN CORPUSCULAR HGB CONC 31 g/dL (32-36); MEAN CORPUSCULAR VOLUME 96 fL (80-99)
[2021-05-29 08:11] LABS: BASOPHILS % (AUTO) 1 % (0-10); EOSINOPHILS % (AUTO) 5 % (0-10); LYMPHOCYTES % (AUTO) 13 % (12-44); MEAN PLATELET VOLUME 12.8 fL (9.0-12.2); MONOCYTES % (AUTO) 19 % (0-12); NEUTROPHILS # (AUTO) 3.9 X 10^3 (1.8-7.8); NEUTROPHILS % (AUTO) 62 % (42-75)
[2021-05-29 08:12] LABS: EOSINOPHILS # (AUTO) 0.3 10^3/uL (0.0-0.3); LYMPHOCYTES # (AUTO) 0.8 X 10^3 (1.0-4.0); MONOCYTES # (AUTO) 1.2 X 10^3 (0.0-1.0)
[2021-05-29 08:21] LABS: ALBUMIN 3.7 GM/DL (3.2-4.5); BILIRUBIN,TOTAL 0.4 MG/DL (0.1-1.0); CALCIUM 8.7 MG/DL (8.5-10.1); CREATININE SERUM 1.09 MG/DL (0.60-1.30); POTASSIUM 4.4 MMOL/L (3.6-5.0); TOTAL PROTEIN 7.2 GM/DL (6.4-8.2)
--- NOTE | 2021-05-29 08:24 | Diagnostic Imaging Report ---
INDICATION: Fever and cough and shortness of breath of breath. TIME OF EXAM: 7:39 AM Correlation is made prior chest from 04/03/2019. The heart size is normal. The pulmonary vascularity is unremarkable. The lungs are clear. No infiltrate, effusion or pneumothorax is detected. Impression: No acute cardiopulmonary process is detected. Dictated by: Dictated on workstation # [id number]
[2021-05-29 08:30] LABS: PLATELET COUNT 98 10^3/uL (130-400)
[2021-05-29 08:39] LABS: BAND NEUTROPHILS 1 %; LYMPHOCYTES % (MANUAL) 8 %; NEUTROPHILS % (MANUAL) 57 %
[2021-05-29 08:40] LABS: ATYPICAL LYMPHOCYTES 5 %; BASOPHILS % (MANUAL) 1 %; EOSINOPHILS % (MANUAL) 5 %; METAMYELOCYTES % 1 %; MONOCYTES % (MANUAL) 22 %; PLATELET ESTIMATE DECREASED
[2021-05-29 08:41] LABS: RBC MORPH NORMAL
[2021-05-29] MEDS ORDERED: AZITHROMYCIN 250 MG TAB (ZITHROMAX) PO STA (09:01)
[2021-05-29] MEDS ORDERED: AZIT500T9 PO (09:06)
[2021-05-29 09:10] VITALS: BP 148/72
== END 2021-05-29 09:14 | disposition home or self-care (01) ==
LOC: EDUNIT# 07:29 → ER FS 07:30
DX: J06.9 Acute upper respiratory infection, unspecified (principal); R79.89 Other specified abnormal findings of blood chemistry; I10 Essential (primary) hypertension; F32.9 Major depressive disorder, single episode, unspecified; N40.0 Benign prostatic hyperplasia without lower urinary tract symptoms; I48.91 Unspecified atrial fibrillation; E78.00 Pure hypercholesterolemia, unspecified; G47.33 Obstructive sleep apnea (adult) (pediatric); E66.9 Obesity, unspecified; Z68.38 Body mass index [BMI] 38.0-38.9, adult; Z99.89 Dependence on other enabling machines and devices; Z79.899 Other long term (current) drug therapy
CPT/HCPCS: 36415; 71045; 80053; 83605; 85007; 85027; 86141; 87040

== ENCOUNTER → 2021-06-29 | Outpatient (CLI) | payer MEDICARE, OTHER ==
[~2021-06-29] MED LIST changes: +AZIT500T9 PO
== END ==
LOC: CARD 13:00
PROVIDERS: ATTEND Internal Medicine Cardiovascular Disease
DX: I34.0 Nonrheumatic mitral (valve) insufficiency (principal)
CPT/HCPCS: 93306

== ENCOUNTER → 2021-06-30 | Outpatient (CLI) | payer MEDICARE, OTHER ==
[~2021-06-30] MED LIST changes: +CATHETER FLUSH 10 ML SYR IV PRN; +REGADENOSON 0.4 MG/5 ML SYR (LEXISCAN) IV ONE
[2021-06-30 09:08] VITALS: BP 154/94
--- NOTE | 2021-06-30 15:39 | STRESS TEST ---
DATE OF SERVICE: 06/30/2021 RESTING AND POST REGADENOSON TECHNETIUM-99M TETROFOSMIN SPECT CT IMAGING ORDERING PHYSICIAN: Dr. Finley. PRIMARY PHYSICIAN: Dr. Jain. CLINICAL DIAGNOSIS: Chest discomfort. Baseline images were carried out after injection of 10.71 mCi of technetium-99m Tetrofosmin. This was followed by 0.4 mg of Regadenoson and 30.5 mCi of technetium-99m Tetrofosmin for stress. The electrocardiogram showed sinus rhythm at baseline. It did not change significantly with the Regadenoson infusion. The patient noted some shortness of breath following Regadenoson infusion, which resolved in a few minutes. Review of images at rest and following stress does not indicate any significant perfusion defects consistent with significant myocardial ischemia or infarction. Gated images show a normal global left ventricular systolic function with a normal regional wall motion. Left ventricular ejection fraction is calculated to be 67%. CONCLUSIONS: 1. No evidence of any significant myocardial ischemia or infarction on this study. 2. Normal regional wall motion. 3. Normal global left ventricular systolic function with a calculated ejection fraction of 67% following STEMI. Job ID: [id number] DocumentID: [id number] Dictated Date: 06/30/2021 13:19:52 Homeowner Association Manager Date: 06/30/2021 15:38:20 Dictated By: ALEX FINLEY MD, MA, FACP, FACC,
== END ==
LOC: CARD 07:30
PROVIDERS: ATTEND Internal Medicine Cardiovascular Disease
DX: R07.89 Other chest pain (principal)
CPT/HCPCS: 78452; 93017; A9502

== ENCOUNTER 2022-07-06 11:40 | Emergency (ER) | payer MEDICARE, OTHER ==
[~2022-07-06] VITALS: Ht 182 cm; Wt 123.0 kg
[~2022-07-06 11:40] MED LIST changes: -CATHETER FLUSH 10 ML SYR IV PRN; -LISI1TAB26 PO; +LISI1TAB48 PO; -MAGN400T8 PO; +MGX400T PO; +MONT-40 PO; -MONT10TA32 PO; -REGADENOSON 0.4 MG/5 ML SYR (LEXISCAN) IV ONE; -TADA5TAB3 PO; +TADA5TAB4 PO
--- NOTE | 2022-07-06 12:17 | ED Upper Extremity ---
General Chief Complaint: Upper Extremity Stated Complaint: RT FOREARM REDNESS/SWELLING History of Present Illness Date Seen by Provider: Jul 06, 2022 Time Seen by Provider: 12:06 Initial Comments 67-year-old male with PMH of basal cell carcinoma of skin on chemo/ulcerative colitis/HTN, is here with complaints of right forearm mass with swelling and redness which began a few days ago. Patient is concerned he has a DVT of his arm. Patient has multiple biopsies/surgical removal of multiple basal cell carc inoma lesions on both his forearms. Denies fever, chills, injury, falls, SOB or chest pain. Allergies and Home Medications Allergies Coded Allergies: morphine (Unverified Allergy, Severe, HEART STOPPED, 11/17/18) hydromorphone HCl (Unverified Allergy, Mild, HIVES, 12/25/19) oxycodone (Unverified Allergy, Mild, HIVES, 12/25/19) infliximab-dyyb (Unverified Adverse Reaction, Severe, ATRIAL FIB, 12/05/18) PT WENT INTO A FIB WHILE RECEIVING INFUSION meperidine HCl (Unverified Adverse Reaction, Mild, N/V, 11/17/18) Patient Home Medication List Home Medication List Reviewed: Yes Aripiprazole (Aripiprazole) 10 Mg Tablet, 10 MG PO DAILY, (Reported) Entered as Reported by: TOBY RIBERA on 12/25/19 1145 Azathioprine (Azathioprine) 50 Mg Tablet, 150 MG PO DAILY, (Reported) Entered as Reported by: ZHENG EAGLE on 11/17/18 1021 Azathioprine (Azasan) 100 Mg Tablet, 250 MG PO DAILY, (Reported) Entered as Reported by: TOBY RIBERA on 12/25/19 1145 Azithromycin (Azithromycin) 500 Mg Tablet, 500 MG PO DAILY Prescribed by: WATSON ALBERTO on 05/29/21 0906 Cholestyramine (Cholestyramine Resin) 5 Gm Powder, 4 GM PO BID PRN for DIARRHEA, (Reported) Entered as Reported by: VALORIE HEREDIA on 01/30/19 1237 Cyanocobalamin (Cyanocobalamin Injection) 1,000 Mcg/Ml Inj, 1,000 MCG IM MONTHLY, (Reported) Entered as Reported by: ZHENG EAGLE on 11/17/18 1021 Diphenoxylate HCl/Atropine (Lomotil 2.5-0.025 mg Tablet) 1 Each Tablet, 2 TAB PO TID, (Reported) Entered as Reported by: ZEHNG EAGLE on 11/17/18 1035 Doxazosin Mesylate (Doxazosin Mesylate) 1 Mg Tablet, 1 MG PO HS, (Reported) Entered as Reported by: VALORIE HEREDIA on 01/30/19 1237 Ergocalciferol (Vitamin D2) (Vitamin D2) 2,000 Unit Tablet, 50,000 UNIT PO Mo, (Reported) Entered as Reported by: TOBY RIBERA on 12/25/19 1145 Fish Oil/Dha/Epa (Fish Oil 1,200 mg Fish Oil) 1 Each Capsule, 1,200 MG PO DAILY, (Reported) Entered as Reported by: ZHENG EAGLE on 11/17/18 1021 Folic Acid (Folic Acid) 0.4 Mg Tablet, 0.4 MG PO DAILY, (Reported) Entered as Reported by: ZHENG EAGLE on 11/17/18 1021 Infliximab (Remicade) 100 Mg Soln, 10 MG IV Q6 WEEKS, (Reported) Entered as Reported by: VALORIE HEREDIA on 01/30/19 1237 L.acidoph & Paracasei,B.lactis (Probiotic) 1 Each Capsule, 1 CAP PO DAILY, (Reported) Entered as Reported by: ZHENG EAGLE on 11/17/18 1021 Loperamide HCl (Loperamide) 2 Mg Tablet, 2 MG PO TID PRN for DIARRHEA, (Reported) Entered as Reported by: VALORIE HEREDIA on 01/30/19 1237 Magnesium Oxide (Magnesium Oxide) 400 Mg Tablet, 400 MG PO BID, (Reported) Entered as Reported by: VALORIE HEREDIA on 01/30/19 1237 Metoprolol Succinate (Metoprolol Succinate) 200 Mg Tab.er.24h, 200 MG PO BID, (Reported) Entered as Reported by: TOBY RIBERA on 12/25/19 1145 Montelukast Sodium (Montelukast Sodium) 10 Mg Tablet, 10 MG PO HS, (Reported) Entered as Reported by: ZHENG EAGLE on 11/17/18 1021 Multivitamin (Multiple Vitamins) 1 Each Tablet, 1 TAB PO DAILY, (Reported) Entered as Reported by: ZHENG EAGLE on 11/17/18 1035 Pantoprazole Sodium (Pantoprazole Sodium) 40 Mg Tablet.dr, 40 MG PO DAILY, (Reported) Entered as Reported by: ZHENG EAGLE on 11/17/18 1021 Paroxetine HCl (Paroxetine HCl) 30 Mg Tablet, 30 MG PO DAILY, (Reported) Entered as Reported by: TOBY RIBERA on 12/25/19 1145 Phenazopyridine HCl (Pyridium) 200 Mg Tablet, 1 TAB PO TID Prescribed by: ELIZABETH BARROSO on 12/26/19 1109 Potassium Citrate (Potassium Citrate ER) 10 Meq Tablet.er, 10 MEQ PO TID, (Reported) Entered as Reported by: CARLOS PAUL on 04/03/19 1400 Simvastatin (Simvastatin) 10 Mg Tablet, 10 MG PO DAILY, (Reported) Entered as Reported by: ZHENG EAGLE on 11/17/18 1021 Sulfamethoxazole/Trimethoprim (Bactrim Ds Tablet) 1 Each Tablet, 1 EACH PO BID Prescribed by: ELIZABETH BARROSO on 12/26/19 1129 Tadalafil (Cialis) 5 Mg Tablet, 5 MG PO PRN, (Reported) Entered as Reported by: VALORIE HEREDIA on 01/30/19 1237 Tamsulosin HCl (Flomax) 0.4 Mg Cap, 0.4 MG PO HS, (Reported) Entered as Reported by: CARLOS PAUL on 04/03/19 1400 Tamsulosin HCl (Flomax) 0.4 Mg Cap, 0.4 MG PO DAILY Prescribed by: ELIZABETH BARROSO on 12/26/19 1109 Tramadol HCl (Tramadol HCl) 50 Mg Tablet, 1-2 TAB PO Q4H PRN for PAIN-MODERATE (5-7) Prescribed by: ELIZABETH BARROSO on 12/26/19 1109 Review of Systems Constitutional: no symptoms reported EENTM: no symptoms reported Respiratory: no symptoms reported Cardiovascular: no symptoms reported Gastrointestinal: no symptoms reported Genitourinary: no symptoms reported Musculoskeletal: see HPI, muscle pain Skin: change in color Psychiatric/Neurological: No Symptoms Reported Past Xhyyktu-Lureht-Ttfujy Hx Immunizations Up To Date PED Vaccines UTD: Yes Third COVID19 Vaccination Date: 05/25/2021 Seasonal Allergies Seasonal Allergies: No Past Medical History Surgery/Hospitalization HX: Hx of sleep apnea and Crohn's disease Surgeries: Yes (SMALL BOWEL RESECTION, HERNIA, KIDNEY STONES, NECK,TESTICULAR MASS) Abdominal, Appendectomy, Bowel Surgery, Gallbladder, Tonsillectomy, Vasectomy Respiratory: Yes Sleep Apnea Currently Using CPAP: Yes Currently Using BIPAP: No Cardiac: Yes (CARDIOVERSION 11/16/18) Atrial Fibrillation, High Cholesterol, Hypertension Neurological: No Reproductive Disorders: No Sexually Transmitted Disease: No HIV/AIDS: No Genitourinary: Yes (HX ESWL) Benign Prostatic Hyperpl, Kidney Stones Gastrointestinal: Yes (REMICADE (ALLERGY INFLECTRA)) Abdominal Hernia, Crohns Disease, Chronic Diarrhea Musculoskeletal: Yes Arthritis Endocrine: Yes (CUSHINGS DISEASE) Adrenal Disease HEENT: No (GLASSES, DETNURES) Loss of Vision: Denies Hearing Impairment: Denies Cancer: Yes Skin Did You Recieve Any Treatments: Yes What Type of Treatment Did You: Surgical Intervention Psychosocial: Yes Depression Integumentary: No Blood Disorders: No Adverse Reaction/Blood Tranf: No (N/A) Family Medical History Patient reports no known family medical history. Heart Disease, Diabetes, Other Conditions/Hx Physical Exam Vital Signs Vital Signs - First Documented 07/06/22 13:44 Temp 36.2 Pulse 71 Resp 16 B/P (MAP) 138/82 (100) Pulse Ox 96 Capillary Refill : Height, Weight, BMI Height: 6'0" Weight: 260lbs. 0.0oz. [id number]; 37.00 BMI Method:Stated General Appearance: WD/WN, no apparent distress HEENT: PERRL/EOMI Neck: full range of motion Cardiovascular: regular rate, rhythm Respiratory: lungs clear, normal breath sounds, no respiratory distress Elbow/Forearm: Right, abrasions (Patient has multiple scabs on both forearms due to skin cancer removal and biopsies.), soft tissue tenderness, swelling (Wit h erythema on right upper one third of forearm on extensor surface measuring approximately 5 cm x 4 cm diameter. It is warm to touch.) Hand: normal inspection Neurologic/Psychiatric: alert, normal mood/affect, oriented x 3 Lymphatic: no adenopathy Progress/Results/Core Measures Results/Orders Lab Results Laboratory Tests Test 07/06/22 12:30 Range/Units White Blood Count 8.0 4.3-11.0 10^3/uL Red Blood Count 4.34 4.30-5.52 10^6/uL Hemoglobin 13.0 L 13.3-17.7 g/dL Hematocrit 40 40-54 % Mean Corpuscular Volume 93 80-99 fL Mean Corpuscular Hemoglobin 30 25-34 pg Mean Corpuscular Hemoglobin Concent 32 32-36 g/dL Red Cell Distribution Width 13.2 10.0-14.5 % Platelet Count 110 L 130-400 10^3/uL Mean Platelet Volume 11.3 9.0-12.2 fL Immature Granulocyte % (Auto) 0 % Neutrophils (%) (Auto) 53 42-75 % Lymphocytes (%) (Auto) 29 12-44 % Monocytes (%) (Auto) 13 H 0-12 % Eosinophils (%) (Auto) 4 0-10 % Basophils (%) (Auto) 1 0-10 % Neutrophils # (Auto) 4.2 1.8-7.8 X 10^3 Lymphocytes # (Auto) 2.3 1.0-4.0 X 10^3 Monocytes # (Auto) 1.0 0.0-1.0 X 10^3 Eosinophils # (Auto) 0.3 0.0-0.3 10^3/uL Basophils # (Auto) 0.1 0.0-0.1 10^3/uL Immature Granulocyte # (Auto) 0.0 0.0-0.1 10^3/uL Percent Immature Platelet Fraction 6.6 0.0-7.6 % Erythrocyte Sedimentation Rate 34 H 0-30 MM/HR Prothrombin Time 15.2 H 12.2-14.7 SEC INR Comment 1.2 0.8-1.4 Activated Partial Thromboplast Time 34 24-35 SEC D-Dimer 0.74 H 0.00-0.49 UG/ML Sodium Level 138 135-145 MMOL/L Potassium Level 4.1 3.6-5.0 MMOL/L Chloride Level 103 98-107 MMOL/L Carbon Dioxide Level 23 21-32 MMOL/L Anion Gap 12 5-14 MMOL/L Blood Urea Nitrogen 10 7-18 MG/DL Creatinine 0.99 0.60-1.30 MG/DL Estimat Glomerular Filtration Rate 85 BUN/Creatinine Ratio 10 Glucose Level 188 H 70-105 MG/DL Calcium Level 8.6 8.5-10.1 MG/DL Corrected Calcium 9.1 8.5-10.1 MG/DL Total Bilirubin 0.3 0.1-1.0 MG/DL Aspartate Amino Transf (AST/SGOT) 29 5-34 U/L Alanine Aminotransferase (ALT/SGPT) 20 0-55 U/L Alkaline Phosphatase 86 40-136 U/L C-Reactive Protein 1.11 H <0.50 MG/DL Total Protein 7.3 6.4-8.2 GM/DL Albumin 3.4 3.2-4.5 GM/DL My Orders Orders - ELENA GARCIA MD Us Venous Upper Ext Rt (07/06/22 12:21) Cbc With Automated Diff (07/06/22 12:22) Comprehensive Metabolic Panel (07/06/22 12:22) Fibrin Degradation Products (07/06/22 12:22) Protime With Inr (07/06/22 12:22) Partial Thromboplastin Time (07/06/22 12:22) Erythrocyte Sedimentation Rate (07/06/22 12:22) Crp Fs (07/06/22 12:22) Forearm 2 View Right (07/06/22 12:22) Ampicillin/Sulbactam Injection (Unasyn 3 (07/06/22 14:45) Ketorolac Injection (Toradol Injection) (07/06/22 14:45) Ct Angio Chest W (07/06/22 14:31) Iohexol Injection (Omnipaque 350 Mg/Ml 1 (07/06/22 14:45) Received Contrast (Hold Metformin- Contr (07/06/22 14:45) Ns (Ivpb) (Sodium Chloride 0.9% Ivpb Bag (07/06/22 14:45) Medications Given in ED Current Medications Medications Dose Ordered Sig/Rui Route Start Time Stop Time Status Last Admin Dose Admin Ampicillin Sodium/ Sulbactam Sodium 3 gm/Sodium Chloride 100 ml @ 200 mls/hr ONCE ONCE IV 07/06/22 14:45 07/06/22 15:14 DC 07/06/22 14:58 200 MLS/HR Iohexol 100 ml ONCE ONCE IV 07/06/22 14:45 07/06/22 14:46 DC 07/06/22 14:58 100 ML Ketorolac Tromethamine 15 mg ONCE ONCE IV 07/06/22 14:45 07/06/22 14:46 DC 07/06/22 14:57 15 MG Sodium Chloride 100 ml ONCE ONCE IV 07/06/22 14:45 07/06/22 14:46 DC 07/06/22 14:58 100 ML Vital Signs/I&O 07/06/22 13:44 Temp 36.2 Pulse 71 Resp 16 B/P (MAP) 138/82 (100) Pulse Ox 96 Progress Progress Note : Progress Note 1. RIGHT FOREARM CELULITIS: - Ultrasound doppler RUE: negative fro DVT - XR RIGHT FOREARM: negative for osteo or injury - CBC/ CMP: normal WBC - Pt is on Eliquis - Unasyn iv STAT - CRP is elevated - Prescription for Augmentin for 10 days - Follow up with PCP in 7 days -The patient was seen in the ED, and treated appropriately to presentation at a specific point in time. Patient is informed that there is a possibility that disease and illness can evolve and change in acuity rapidly or slowly after patient is discharged from the ER. Precautionary advice given to the patient for immediate return to ER if symptoms worsen or do not resolve, and to seek emergency care sooner rather than later. Pt also advised on the importance of PCP follow up and compliance with management and follow up plan with PCP and/or specialist, as this is part of the management plan. Pt verbally expressed understanding. 2. ELEVATED D-DIMER: - CTA CHEST: no PE - D-dimer/ coag panel: Elevated D-dimer : 0.74 Diagnostic Imaging Diagonstic Imaging: Xray, CT, Ultrasound Plain Films/CT/US/NM/MRI: forearm, chest Comments [facility] [place], [place] NAME: DONOVAN SANCHEZ [facility] REC#: [id number] PT STATUS: REG ER : 1955 PHYSICIAN: ELENA GARCIA MD ADMIT DATE: 07/06/22/ER FS Signed Date of Exam:07/06/22 US VENOUS UPPER EXT RT US VENOUS UPPER EXT RT INDICATION: Right arm pain TECHNIQUE: Grayscale, color Doppler and spectral Doppler imaging of the right upper extremity venous structures was performed. COMPARISON: None available. FINDINGS: The right internal jugular, axillary, brachial, radial and ulnar veins are patent without evidence of DVT. All of the evaluated deep venous structures demonstrate normal compressibility and waveform augmentation where applicable. Evaluation of the superficial basilic and cephalic veins demonstrate normal patency without thrombosis. IMPRESSION: No right upper extremity deep venous thrombosis (DVT). Dictated by: Dictated on workstation # [id number] Dict: 07/06/22 1328 Trans: 07/06/22 1330 [facility] [id number] Interpreted by: ANDERS YOUNG MD Electronically signed by: ANDERS YOUNG MD 07/06/22 1330 [facility] [place], [place] NAME: DONOVAN SANCHEZ [facility] REC#: [id number] PT STATUS: REG ER : 1955 PHYSICIAN: ELENA GARCIA MD ADMIT DATE: 07/06/22/ER FS Draft Date of Exam:07/06/22 CT ANGIO CHEST W PROCEDURE: CT angiography of the chest with contrast. TECHNIQUE: Multiple contiguous axial images were obtained through the chest after uneventful bolus administration of intravenous contrast. 3D reconstructed CTA MIP acquisitions were also performed. Auto Exposure Controls were utilized during the CT exam to meet ALARA standards for radiation dose reduction. DATE: July 06, 2022. COMPARISON: CT chest February 27, 2019. INDICATION: 67-year-old male, red lump on the arm. Shortness of breath. Difficulty breathing. FINDINGS: There is a 2 mm calcified right middle lobe granuloma. There is no noncalcified pulmonary nodule. There is no lung mass. There is no otherwise noted focal airspace consolidation. There is no pneumothorax. There is no pleural effusion. The central airways are patent. There is no identified pulmonary embolus. The heart is not enlarged. There is no pericardial effusion. There is no identified abnormally enlarged mediastinal, hilar, or axillary lymph node meeting CT size criteria for adenopathy. The outer liver contours are nodular, compatible with cirrhosis. The gallbladder is surgically absent. There is a low-attenuation right renal lesion on axial image 162 measuring 1.6 cm in size. Internal attenuation is compatible with a benign cyst. There is an additional low-attenuation right renal lesion on axial image 168, also compatible with a benign cyst. There is no identified acute bony abnormality. There are degenerative changes of the spine. IMPRESSION: 1. No identified acute cardiopulmonary abnormality. 2. Findings consistent with cirrhosis. Dictated on workstation # [id number] Dict: 07/06/22 1555 Trans: 07/06/22 1617 [id number] Interpreted by: JUANI CAMILO MD Electronically signed by: [facility] [place] [place] NAME: DONOVAN SANCHEZ [facility] REC#: [id number] PT STATUS: REG ER : 1955 PHYSICIAN: ELENA GARCIA MD ADMIT DATE: 07/06/22/ER FS Draft Date of Exam:07/06/22 FOREARM 2 VIEW RIGHT FOREARM 2 VIEW RIGHT INDICATION: Right forearm swelling COMPARISON: None available. TECHNIQUE: 2 views of right forearm FINDINGS: No radiopaque foreign body or soft tissue gas. No fracture or osseous erosions. Elbow and wrist are normal in alignment. Mild soft tissue swelling in the dorsal aspect of the forearm. IMPRESSION: 1. Soft tissue swelling without radiopaque foreign body or gas. 2. No acute osseous abnormality. Dictated on workstation # [id number] Dict: 07/06/22 1250 Trans: 07/06/22 1252 [facility] [id number] Interpreted by: ANDERS YOUNG MD Electronically signed by: Departure Impression Primary Impression: Right forearm cellulitis Disposition: 01 HOME, SELF-CARE Condition: Stable Departure-Patient Inst. Referrals: MK CRONIN MD (PCP/Family) Primary Care Physician Patient Instructions: Cellulitis (Skin Infection), Adult (DC) Add. Discharge Instructions: - Prescription for Augmentin for 10 days - Follow up with PCP in 7 days and keep dermatology appointment as scheduled All discharge instructions reviewed with patient and/or family. Voiced understanding. Scripts Amoxicillin/Potassium Clav (Amox Tr-K Clv 875-125 mg Tab) 875 Mg-125 Mg Tablet 1 EACH PO BID for 10 Days, #20 TAB Prov: ELENA GARCIA MD 07/06/22 ELENA GARCIA MD Jul 06, 2022 12:17
[2022-07-06 12:51] LABS: HEMATOCRIT 40 % (40-54); MEAN CORPUSCULAR HEMOGLOBIN 30 pg (25-34); MEAN CORPUSCULAR HGB CONC 32 g/dL (32-36); MEAN CORPUSCULAR VOLUME 93 fL (80-99); MEAN PLATELET VOLUME 11.3 fL (9.0-12.2); PLATELET COUNT 110 10^3/uL (130-400)
[2022-07-06 12:52] LABS: BASOPHILS # (AUTO) 0.1 10^3/uL (0.0-0.1); BASOPHILS % (AUTO) 1 % (0-10); EOSINOPHILS # (AUTO) 0.3 10^3/uL (0.0-0.3); EOSINOPHILS % (AUTO) 4 % (0-10); LYMPHOCYTES # (AUTO) 2.3 X 10^3 (1.0-4.0); LYMPHOCYTES % (AUTO) 29 % (12-44); MONOCYTES % (AUTO) 13 % (0-12); NEUTROPHILS # (AUTO) 4.2 X 10^3 (1.8-7.8); NEUTROPHILS % (AUTO) 53 % (42-75)
--- NOTE | 2022-07-06 12:53 | Diagnostic Imaging Report ---
FOREARM 2 VIEW RIGHT INDICATION: Right forearm swelling COMPARISON: None available. TECHNIQUE: 2 views of right forearm FINDINGS: No radiopaque foreign body or soft tissue gas. No fracture or osseous erosions. Elbow and wrist are normal in alignment. Mild soft tissue swelling in the dorsal aspect of the forearm. IMPRESSION: 1. Soft tissue swelling without radiopaque foreign body or gas. 2. No acute osseous abnormality. Dictated by: Dictated on workstation # [id number]
--- NOTE | 2022-07-06 13:31 | Diagnostic Imaging Report ---
US VENOUS UPPER EXT RT INDICATION: Right arm pain TECHNIQUE: Grayscale, color Doppler and spectral Doppler imaging of the right upper extremity venous structures was performed. COMPARISON: None available. FINDINGS: The right internal jugular, axillary, brachial, radial and ulnar veins are patent without evidence of DVT. All of the evaluated deep venous structures demonstrate normal compressibility and waveform augmentation where applicable. Evaluation of the superficial basilic and cephalic veins demonstrate normal patency without thrombosis. IMPRESSION: No right upper extremity deep venous thrombosis (DVT). Dictated by: Dictated on workstation # [id number]
[2022-07-06 13:44] VITALS: BP 138/82
[2022-07-06 13:55] LABS: POTASSIUM 4.1 MMOL/L (3.6-5.0)
[2022-07-06 13:56] LABS: ALBUMIN 3.4 GM/DL (3.2-4.5); BILIRUBIN,TOTAL 0.3 MG/DL (0.1-1.0); CALCIUM 8.6 MG/DL (8.5-10.1); CREATININE SERUM 0.99 MG/DL (0.60-1.30); TOTAL PROTEIN 7.3 GM/DL (6.4-8.2)
[2022-07-06 13:58] LABS: ERYTHROCYTE SEDIMENTATION RATE 34 MM/HR (0-30)
[2022-07-06 14:12] LABS: FIBRIN DEGRADATION PRODUCTS 0.74 UG/ML (0.00-0.49); INR 1.2 (0.8-1.4); PROTHROMBIN TIME PATIENT 15.2 SEC (12.2-14.7)
[2022-07-06] MEDS ORDERED: HOLD METFORMIN - RECEIVED CONTRAST 20 ML VIAL IV SCH (14:45)
[2022-07-06] MEDS ORDERED: NS 100 ML (IVPB) BAG IV ONE (14:45)
[2022-07-06] MEDS ORDERED: KETOROLAC 30 MG/ML VIAL IV ONE (14:45)
[2022-07-06] MEDS ORDERED: IOHEXOL 350 MG/ML 100 ML (OMNIPAQUE 350) VIAL IV ONE (14:45)
[2022-07-06] MEDS ORDERED: AMPICILLIN/SULBACTAM INJECTION 3 GM in NS (IVPB) 100 ML IV ONE (14:45)
--- NOTE | 2022-07-06 16:17 | Diagnostic Imaging Report ---
PROCEDURE: CT angiography of the chest with contrast. TECHNIQUE: Multiple contiguous axial images were obtained through the chest after uneventful bolus administration of intravenous contrast. 3D reconstructed CTA MIP acquisitions were also performed. Auto Exposure Controls were utilized during the CT exam to meet ALARA standards for radiation dose reduction. DATE: July 06, 2022. COMPARISON: CT chest February 27, 2019. INDICATION: 67-year-old male, red lump on the arm. Shortness of breath. Difficulty breathing. FINDINGS: There is a 2 mm calcified right middle lobe granuloma. There is no noncalcified pulmonary nodule. There is no lung mass. There is no otherwise noted focal airspace consolidation. There is no pneumothorax. There is no pleural effusion. The central airways are patent. There is no identified pulmonary embolus. The heart is not enlarged. There is no pericardial effusion. There is no identified abnormally enlarged mediastinal, hilar, or axillary lymph node meeting CT size criteria for adenopathy. The outer liver contours are nodular, compatible with cirrhosis. The gallbladder is surgically absent. There is a low-attenuation right renal lesion on axial image 162 measuring 1.6 cm in size. Internal attenuation is compatible with a benign cyst. There is an additional low-attenuation right renal lesion on axial image 168, also compatible with a benign cyst. There is no identified acute bony abnormality. There are degenerative changes of the spine. IMPRESSION: 1. No identified acute cardiopulmonary abnormality. 2. Findings consistent with cirrhosis. Dictated by: Dictated on workstation # [id number]
[2022-07-06] MEDS ORDERED: AMOX1TAB12 PO (16:43)
== END 2022-07-06 16:50 | disposition home or self-care (01) ==
LOC: EDUNIT# 11:40 → ER FS 11:41
DX: L03.113 Cellulitis of right upper limb (principal); G47.30 Sleep apnea, unspecified; C44.91 Basal cell carcinoma of skin, unspecified; Z99.89 Dependence on other enabling machines and devices
CPT/HCPCS: 36415; 71275; 73090; 80053; 85025; 85379; 85610; 85652; 85730; 86141; 96365; 96375; Q9967

== ENCOUNTER → 2022-08-03 | Outpatient (CLI) | payer MEDICARE, OTHER ==
--- NOTE | 2022-08-03 16:43 | Diagnostic Imaging Report ---
INDICATION: Kicked bed. Pain to right toe. FINDINGS: Images of the right 3rd, 4th and 5th toes. No fractures are demonstrated. No dislocation. Articulating surfaces are smooth. There is a old deformity of the 5th metatarsal. IMPRESSION: No evidence of acute fracture. Dictated by: Dictated on workstation # [id number]
== END ==
LOC: RAD FS 12:38
PROVIDERS: ATTEND Pediatrics
DX: M79.674 Pain in right toe(s) (principal); W22.8XXA Striking against or struck by other objects, initial encounter
CPT/HCPCS: 73660

== ENCOUNTER 2022-09-02 10:09 | Emergency (ER) | payer MEDICARE, OTHER ==
[~2022-09-02] VITALS: Ht 182 cm; Wt 125.0 kg
--- NOTE | 2022-09-02 10:13 | ED Integumentary General ---
General Stated Complaint: RT THUMB LAC History of Present Illness Date Seen by Provider: Sep 02, 2022 Time Seen by Provider: 10:13 Initial Comments 67-year-old male with a right thumb laceration. Patient was cutting potatoes with a mandolin when he actually cut his right thumb. He is on Eliquis. He is up-to-date on his tetanus. He has no other injury. Allergies and Home Medications Allergies Coded Allergies: morphine (Unverified Allergy, Severe, HEART STOPPED, 11/17/18) hydromorphone HCl (Unverified Allergy, Mild, HIVES, 12/25/19) oxycodone (Unverified Allergy, Mild, HIVES, 12/25/19) infliximab-dyyb (Unverified Adverse Reaction, Severe, ATRIAL FIB, 12/05/18) PT WENT INTO A FIB WHILE RECEIVING INFUSION meperidine HCl (Unverified Adverse Reaction, Mild, N/V, 11/17/18) Patient Home Medication List Home Medication List Reviewed: Yes Amoxicillin/Potassium Clav (Amox Tr-K Clv 875-125 mg Tab) 875 Mg-125 Mg Tablet, 1 EACH PO BID Prescribed by: ELENA GARCIA MD on 07/06/22 1643 Aripiprazole (Aripiprazole) 10 Mg Tablet, 10 MG PO DAILY, (Reported) Entered as Reported by: TOBY RIBERA on 12/25/19 1145 Azathioprine (Azathioprine) 50 Mg Tablet, 150 MG PO DAILY, (Reported) Entered as Reported by: ZHENG EAGLE on 11/17/18 1021 Azathioprine (Azasan) 100 Mg Tablet, 250 MG PO DAILY, (Reported) Entered as Reported by: TOBY RIBERA on 12/25/19 1145 Azithromycin (Azithromycin) 500 Mg Tablet, 500 MG PO DAILY Prescribed by: WATSON ALBERTO on 05/29/21 0906 Cholestyramine (Cholestyramine Resin) 5 Gm Powder, 4 GM PO BID PRN for DIARRHEA, (Reported) Entered as Reported by: VALORIE HEREDIA on 01/30/19 1237 Cyanocobalamin (Cyanocobalamin Injection) 1,000 Mcg/Ml Inj, 1,000 MCG IM MONTHLY, (Reported) Entered as Reported by: ZHENG EAGLE on 11/17/18 1021 Diphenoxylate HCl/Atropine (Lomotil 2.5-0.025 mg Tablet) 1 Each Tablet, 2 TAB PO TID, (Reported) Entered as Reported by: ZHENG EAGLE on 11/17/18 1035 Doxazosin Mesylate (Doxazosin Mesylate) 1 Mg Tablet, 1 MG PO HS, (Reported) Entered as Reported by: VALORIE HEREDIA on 01/30/19 1237 Ergocalciferol (Vitamin D2) (Vitamin D2) 2,000 Unit Tablet, 50,000 UNIT PO Mo, (Reported) Entered as Reported by: TOBY RIBERA on 12/25/19 1145 Fish Oil/Dha/Epa (Fish Oil 1,200 mg Fish Oil) 1 Each Capsule, 1,200 MG PO DAILY, (Reported) Entered as Reported by: ZHENG EAGLE on 11/17/18 1021 Folic Acid (Folic Acid) 0.4 Mg Tablet, 0.4 MG PO DAILY, (Reported) Entered as Reported by: ZHENG EAGLE on 11/17/18 1021 Infliximab (Remicade) 100 Mg Soln, 10 MG IV Q6 WEEKS, (Reported) Entered as Reported by: VALORIE HEREDIA on 01/30/19 1237 L.acidoph & Paracasei,B.lactis (Probiotic) 1 Each Capsule, 1 CAP PO DAILY, (Reported) Entered as Reported by: ZHENG EAGLE on 11/17/18 1021 Loperamide HCl (Loperamide) 2 Mg Tablet, 2 MG PO TID PRN for DIARRHEA, (Reported) Entered as Reported by: VALORIE HEREDIA on 01/30/19 1237 Magnesium Oxide (Magnesium Oxide) 400 Mg Tablet, 400 MG PO BID, (Reported) Entered as Reported by: VALORIE HEREDIA on 01/30/19 1237 Metoprolol Succinate (Metoprolol Succinate) 200 Mg Tab.er.24h, 200 MG PO BID, (Reported) Entered as Reported by: TOBY RIBERA on 12/25/19 1145 Montelukast Sodium (Montelukast Sodium) 10 Mg Tablet, 10 MG PO HS, (Reported) Entered as Reported by: ZHENG EAGLE on 11/17/18 1021 Multivitamin (Multiple Vitamins) 1 Each Tablet, 1 TAB PO DAILY, (Reported) Entered as Reported by: ZHENG EAGLE on 11/17/18 1035 Pantoprazole Sodium (Pantoprazole Sodium) 40 Mg Tablet.dr, 40 MG PO DAILY, (Reported) Entered as Reported by: ZHENG EAGLE on 11/17/18 1021 Paroxetine HCl (Paroxetine HCl) 30 Mg Tablet, 30 MG PO DAILY, (Reported) Entered as Reported by: TOBY RIBERA on 12/25/19 1145 Phenazopyridine HCl (Pyridium) 200 Mg Tablet, 1 TAB PO TID Prescribed by: ELIZABETH BARROSO on 12/26/19 1109 Potassium Citrate (Potassium Citrate ER) 10 Meq Tablet.er, 10 MEQ PO TID, (Reported) Entered as Reported by: CARLOS PAUL on 04/03/19 1400 Simvastatin (Simvastatin) 10 Mg Tablet, 10 MG PO DAILY, (Reported) Entered as Reported by: ZHENG EAGLE on 11/17/18 1021 Sulfamethoxazole/Trimethoprim (Bactrim Ds Tablet) 1 Each Tablet, 1 EACH PO BID Prescribed by: ELIZABETH BARROSO on 12/26/19 1129 Tadalafil (Cialis) 5 Mg Tablet, 5 MG PO PRN, (Reported) Entered as Reported by: VALORIE HEREDIA on 01/30/19 1237 Tamsulosin HCl (Flomax) 0.4 Mg Cap, 0.4 MG PO HS, (Reported) Entered as Reported by: CARLOS PAUL on 04/03/19 1400 Tamsulosin HCl (Flomax) 0.4 Mg Cap, 0.4 MG PO DAILY Prescribed by: ELIZABETH BARROSO on 12/26/19 1109 Tramadol HCl (Tramadol HCl) 50 Mg Tablet, 1-2 TAB PO Q4H PRN for PAIN-MODERATE (5-7) Prescribed by: ELIZABETH BARROSO on 12/26/19 1109 Review of Systems Review of Systems Constitutional: no symptoms reported EENTM: no symptoms reported Respiratory: no symptoms reported Cardiovascular: no symptoms reported Gastrointestinal: no symptoms reported Musculoskeletal: no symptoms reported Skin: see HPI Past Hgmozmx-Tmmpgc-Dzoxkd Hx Immunizations Up To Date PED Vaccines UTD: Yes Third COVID19 Vaccination Date: 05/25/2021 Seasonal Allergies Seasonal Allergies: No Past Medical History Surgery/Hospitalization HX: Hx of sleep apnea and Crohn's disease Surgeries: Yes (SMALL BOWEL RESECTION, HERNIA, KIDNEY STONES, NECK,TESTICULAR MASS) Abdominal, Appendectomy, Bowel Surgery, Gallbladder, Tonsillectomy, Vasectomy Respiratory: Yes Sleep Apnea Currently Using CPAP: Yes Currently Using BIPAP: No Cardiac: Yes (CARDIOVERSION 11/16/18) Atrial Fibrillation, High Cholesterol, Hypertension Neurological: No Reproductive Disorders: No Sexually Transmitted Disease: No HIV/AIDS: No Genitourinary: Yes (HX ESWL) Benign Prostatic Hyperpl, Kidney Stones Gastrointestinal: Yes (REMICADE (ALLERGY INFLECTRA)) Abdominal Hernia, Crohns Disease, Chronic Diarrhea Musculoskeletal: Yes Arthritis Endocrine: Yes (CUSHINGS DISEASE) Adrenal Disease HEENT: No (GLASSES, DETNURES) Loss of Vision: Denies Hearing Impairment: Denies Cancer: Yes Skin Did You Recieve Any Treatments: Yes What Type of Treatment Did You: Surgical Intervention Psychosocial: Yes Depression Integumentary: No Blood Disorders: No Adverse Reaction/Blood Tranf: No (N/A) Family Medical History Patient reports no known family medical history. Heart Disease, Diabetes, Other Conditions/Hx Physical Exam Vital Signs Capillary Refill : General Appearance: WD/WN, no apparent distress Neck: full range of motion, supple Cardiovascular: normal peripheral pulses, regular rate, rhythm Respiratory: no respiratory distress, no accessory muscle use Extremities: normal range of motion, normal capillary refill Neurologic/Psychiatric: alert, normal mood/affect, oriented x 3 Skin: other (Small 1 cm laceration with flap) Procedures/Interventions Wound Location: Upper Extremities Other Wound Location Right thumb Wound Length (cm): 1 Wound's Depth, Shape: superficial, flap Wound Explored: clean Other Closure Supply: Wound Adhesive Progress/Results/Core Measures Progress Progress Note : Progress Note Patient with a small flap laceration. skin adhesive and pressure dressing placed. Bleeding stopped. Patient tolerated well. Tetanus not indicated is up-to-date. Discharged Departure Impression Primary Impression: Laceration of right thumb without complication Qualified Codes: S61.011A - Laceration without foreign body of right thumb without damage to nail, initial encounter Disposition: HOME, SELF-CARE Condition: Stable Departure-Patient Inst. Referrals: MK CRONIN MD (PCP) Primary Care Physician Patient Instructions: Skin Glue for Minor Cuts Add. Discharge Instructions: Keep clean with warm soapy water NINA EDWARDS DO Sep 02, 2022 10:13
[2022-09-02 10:25] VITALS: BP 139/74
== END 2022-09-02 10:35 | disposition home or self-care (01) ==
LOC: EDUNIT# 10:09 → ER FS 10:11
DX: S61.011A Laceration without foreign body of right thumb without damage to nail, initial encounter (principal); Z79.01 Long term (current) use of anticoagulants; W27.4XXA Contact with kitchen utensil, initial encounter

== ENCOUNTER → 2023-06-14 | Outpatient (CLI) | payer MEDICARE, OTHER ==
[2023-06-14 08:24] LABS: BILIRUBIN,URINE NEGATIVE (NEGATIVE); COLOR,URINE YELLOW; GLUCOSE, URINE (UA) TRACE (NEGATIVE); KETONES,URINE NEGATIVE (NEGATIVE); LEUKOCYTE ESTERASE ,URINE 1+ (NEGATIVE); NITRITE,URINE NEGATIVE (NEGATIVE); PROTEIN,URINE 1+ (NEGATIVE)
[2023-06-14 08:42] LABS: CLARITY,URINE CLOUDY
[2023-06-14 08:43] LABS: BACTERIA,URINE LARGE /HPF; RBC,URINE 25-50 /HPF; SQUAMOUS EPITHELIAL CELL,UR RARE /HPF; WBC,URINE 50-100 /HPF
== END ==
LOC: LAB FS 07:56
PROVIDERS: ATTEND Pediatrics
DX: R30.0 Dysuria (principal)
CPT/HCPCS: 81000; 87077; 87088; 87186

== ENCOUNTER 2023-07-06 13:20 | Emergency (ER) | payer MEDICARE, OTHER ==
[2023-07-06] MEDS ORDERED: NS IV 1000 ML 1,000 ML IV STA (13:50)
[2023-07-06] MEDS ORDERED: RT-Ipratropium/Albuterol NEB 3 ML VIAL INH ONE (14:00)
[2023-07-06 14:16] LABS: BASOPHILS # (AUTO) 0.1 10^3/uL (0.0-0.1); BASOPHILS % (AUTO) 1 % (0-10); EOSINOPHILS # (AUTO) 0.2 10^3/uL (0.0-0.3); EOSINOPHILS % (AUTO) 1 % (0-10); HEMATOCRIT 44 % (40-54); HEMOGLOBIN 13.7 g/dL (13.3-17.7); LYMPHOCYTES % (AUTO) 25 % (12-44); MEAN CORPUSCULAR HEMOGLOBIN 28 pg (25-34); MEAN CORPUSCULAR HGB CONC 31 g/dL (32-36); MEAN CORPUSCULAR VOLUME 89 fL (80-99); MEAN PLATELET VOLUME 11.5 fL (9.0-12.2); MONOCYTES # (AUTO) 1.8 10^3/uL (0.0-1.0); MONOCYTES % (AUTO) 11 % (0-12); NEUTROPHILS # (AUTO) 9.8 10^3/uL (1.8-7.8); NEUTROPHILS % (AUTO) 62 % (42-75); PLATELET COUNT 196 10^3/uL (130-400)
--- NOTE | 2023-07-06 14:28 | Diagnostic Imaging Report ---
EXAMINATION: Chest 1 view HISTORY: cough, short of breath COMPARISON: 05/29/2021 FINDINGS: There are patchy bilateral airspace opacities. No pneumothorax. No pleural effusion. Heart size is normal. IMPRESSION: 1. Patchy bilateral airspace opacities suggestive of pneumonia. Dictated by: Dictated on workstation # [id number]
[2023-07-06 14:32] LABS: BAND NEUTROPHILS 1 %; EOSINOPHILS % (MANUAL) 2 %; LYMPHOCYTES % (MANUAL) 24 %; MONOCYTES % (MANUAL) 13 %; NEUTROPHILS % (MANUAL) 59 %
[2023-07-06 14:33] LABS: ATYPICAL LYMPHOCYTES 1 %; PLATELET ESTIMATE ADEQUATE; RBC MORPH NORMAL
[2023-07-06] MEDS ORDERED: AZITHROMYCIN 250 MG TABLET PO STA (14:44)
[2023-07-06] MEDS ORDERED: cefTRIAXone IV/IM 1,000 MG in NS (IVPB) 50 ML 50 ML IV STA (14:44)
--- NOTE | 2023-07-06 14:44 | ED Cough/URI ---
General Chief Complaint: Cough/Cold/Flu Symptoms Stated Complaint: SOB; COUGH Source: patient History of Present Illness Date Seen by Provider: Jul 06, 2023 Time Seen by Provider: 13:23 Initial Comments 68-year-old male presenting with complaints of cough, fever, shortness of breath. He states that his temperature got up to 102 on Tuesday. He is coughing up some thick yellow with green sputum. He denies any known ill contacts. He gets short of breath and winded easily with exertion. If he is at rest he does not get short of breath. He does have some chest wall pain from coughing. He denies having nausea, vomiting, diarrhea. He did get updated vaccinations for flu, COVID, pneumonia about 2 to 3 weeks ago. Timing/Duration: getting worse (Over the last 4 to 5 days) Severity/Quality: moderate, productive cough, sputum Prior Episodes/Possible Cause: occasional episodes (Past history of pneumonia) Modifying Factors: Worse With Activity, Worse With Coughing; Improves With Rest Associated Symptoms: chest pain/soreness, cough, fever/chills, headache, lightheadedness, muscle aches, nasal congestion, nasal drainage, shortness of br eath Allergies and Home Medications Allergies Coded Allergies: morphine (Unverified Allergy, Severe, HEART STOPPED, 11/17/18) hydromorphone HCl (Unverified Allergy, Mild, HIVES, 12/25/19) oxycodone (Unverified Allergy, Mild, HIVES, 12/25/19) infliximab-dyyb (Unverified Adverse Reaction, Severe, ATRIAL FIB, 12/05/18) PT WENT INTO A FIB WHILE RECEIVING INFUSION meperidine HCl (Unverified Adverse Reaction, Mild, N/V, 11/17/18) Patient Home Medication List Home Medication List Reviewed: Yes Amoxicillin/Potassium Clav (Amox Tr-K Clv 875-125 mg Tab) 875 Mg-125 Mg Tablet, 1 EACH PO BID Prescribed by: ELENA GARCIA MD on 07/06/22 1643 Aripiprazole (Aripiprazole) 10 Mg Tablet, 10 MG PO DAILY, (Reported) Entered as Reported by: TOBY RIBERA on 12/25/19 1145 Azathioprine (Azathioprine) 50 Mg Tablet, 150 MG PO DAILY, (Reported) Entered as Reported by: ZHENG EAGLE on 11/17/18 1021 Azathioprine (Azasan) 100 Mg Tablet, 250 MG PO DAILY, (Reported) Entered as Reported by: TOBY RIBERA on 12/25/19 1145 Azithromycin (Azithromycin) 500 Mg Tablet, 500 MG PO DAILY Prescribed by: WATSON ALBERTO on 05/29/21 0906 Azithromycin (Azithromycin) 250 Mg Tablet, 250 MG PO DAILY Prescribed by: WATSON ALBERTO on 07/06/23 1508 Cholestyramine (Cholestyramine Resin) 5 Gm Powder, 4 GM PO BID PRN for DIARRHEA, (Reported) Entered as Reported by: VALORIE HEREDIA on 01/30/19 1237 Cyanocobalamin (Cyanocobalamin Injection) 1,000 Mcg/Ml Inj, 1,000 MCG IM MONTHLY, (Reported) Entered as Reported by: ZHENG EAGLE on 11/17/18 1021 Diphenoxylate HCl/Atropine (Lomotil 2.5-0.025 mg Tablet) 1 Each Tablet, 2 TAB PO TID, (Reported) Entered as Reported by: ZHENG EAGLE on 11/17/18 1035 Doxazosin Mesylate (Doxazosin Mesylate) 1 Mg Tablet, 1 MG PO HS, (Reported) Entered as Reported by: VALORIE HEREDIA on 01/30/19 1237 Ergocalciferol (Vitamin D2) (Vitamin D2) 2,000 Unit Tablet, 50,000 UNIT PO Mo, (Reported) Entered as Reported by: TOBY RIBERA on 12/25/19 1145 Fish Oil/Dha/Epa (Fish Oil 1,200 mg Fish Oil) 1 Each Capsule, 1,200 MG PO DAILY, (Reported) Entered as Reported by: ZHENG EAGLE on 11/17/18 1021 Folic Acid (Folic Acid) 0.4 Mg Tablet, 0.4 MG PO DAILY, (Reported) Entered as Reported by: ZHENG EAGLE on 11/17/18 1021 Guaifenesin (Mucinex) 1,200 Mg Tab.er.12h, 1,200 MG PO Q12H Prescribed by: WATSON ALBERTO on 07/06/23 1508 Infliximab (Remicade) 100 Mg Soln, 10 MG IV Q6 WEEKS, (Reported) Entered as Reported by: VALORIE HEREDIA on 01/30/19 1237 L.acidoph & Paracasei,B.lactis (Probiotic) 1 Each Capsule, 1 CAP PO DAILY, (Reported) Entered as Reported by: ZHENG EAGLE on 11/17/18 1021 Loperamide HCl (Loperamide) 2 Mg Tablet, 2 MG PO TID PRN for DIARRHEA, (Reported) Entered as Reported by: VALORIE HEREDIA on 01/30/19 1237 Magnesium Oxide (Magnesium Oxide) 400 Mg Tablet, 400 MG PO BID, (Reported) Entered as Reported by: VALORIE HEREDIA on 01/30/19 1237 Metoprolol Succinate (Metoprolol Succinate) 200 Mg Tab.er.24h, 200 MG PO BID, (Reported) Entered as Reported by: TOBY RIBERA on 12/25/19 1145 Montelukast Sodium (Montelukast Sodium) 10 Mg Tablet, 10 MG PO HS, (Reported) Entered as Reported by: ZHENG EAGLE on 11/17/18 1021 Multivitamin (Multiple Vitamins) 1 Each Tablet, 1 TAB PO DAILY, (Reported) Entered as Reported by: ZHENG EAGLE on 11/17/18 1035 Pantoprazole Sodium (Pantoprazole Sodium) 40 Mg Tablet.dr, 40 MG PO DAILY, (Rep orted) Entered as Reported by: ZHENG EAGLE on 11/17/18 1021 Paroxetine HCl (Paroxetine HCl) 30 Mg Tablet, 30 MG PO DAILY, (Reported) Entered as Reported by: TOBY RIBERA on 12/25/19 1145 Phenazopyridine HCl (Pyridium) 200 Mg Tablet, 1 TAB PO TID Prescribed by: ELIZABETH BARROSO on 12/26/19 1109 Potassium Citrate (Potassium Citrate ER) 10 Meq Tablet.er, 10 MEQ PO TID, (Reported) Entered as Reported by: CARLOS PAUL on 04/03/19 1400 Simvastatin (Simvastatin) 10 Mg Tablet, 10 MG PO DAILY, (Reported) Entered as Reported by: ZHENG EAGLE on 11/17/18 1021 Sulfamethoxazole/Trimethoprim (Bactrim Ds Tablet) 1 Each Tablet, 1 EACH PO BID Prescribed by: ELIZABETH BARROSO on 12/26/19 1129 Tadalafil (Cialis) 5 Mg Tablet, 5 MG PO PRN, (Reported) Entered as Reported by: VALORIE HEREDIA on 01/30/19 1237 Tamsulosin HCl (Flomax) 0.4 Mg Cap, 0.4 MG PO HS, (Reported) Entered as Reported by: CARLOS PAUL on 04/03/19 1400 Tamsulosin HCl (Flomax) 0.4 Mg Cap, 0.4 MG PO DAILY Prescribed by: ELIZABETH BARROSO on 12/26/19 1109 Tramadol HCl (Tramadol HCl) 50 Mg Tablet, 1-2 TAB PO Q4H PRN for PAIN-MODERATE (5-7) Prescribed by: ELIZABETH BARROSO on 12/26/19 1109 Review of Systems Review of Systems Constitutional: see HPI EENTM: see HPI Respiratory: see HPI Cardiovascular: see HPI Gastrointestinal: no symptoms reported Genitourinary: no symptoms reported Musculoskeletal: see HPI Skin: No rash Psychiatric/Neurological: Headache Past Jcaerzc-Swfaoc-Ntrxnb Hx Immunizations Up To Date PED Vaccines UTD: Yes First/Initial COVID19 Vaccinat: 05/25/2021 Second COVID19 Vaccination Darci: 05/25/2021 Third COVID19 Vaccination Date: 05/25/2021 Seasonal Allergies Seasonal Allergies: No Past Medical History Surgery/Hospitalization HX: Hx of sleep apnea and Crohn's disease Surgeries: Yes (SMALL BOWEL RESECTION, HERNIA, KIDNEY STONES, NECK,TESTICULAR MASS) Abdominal, Appendectomy, Bowel Surgery, Gallbladder, Tonsillectomy, Vasectomy Respiratory: Yes Sleep Apnea Currently Using CPAP: Yes Currently Using BIPAP: No Cardiac: Yes (CARDIOVERSION 11/16/18) Atrial Fibrillation, High Cholesterol, Hypertension Neurological: No Reproductive Disorders: No Sexually Transmitted Disease: No HIV/AIDS: No Genitourinary: Yes (HX ESWL) Benign Prostatic Hyperpl, Kidney Stones Gastrointestinal: Yes (REMICADE (ALLERGY INFLECTRA)) Abdominal Hernia, Crohns Disease, Chronic Diarrhea Musculoskeletal: Yes Arthritis Endocrine: Yes (CUSHINGS DISEASE) Adrenal Disease HEENT: No (GLASSES, DETNURES) Loss of Vision: Denies Hearing Impairment: Denies Cancer: Yes Skin Did You Recieve Any Treatments: Yes What Type of Treatment Did You: Surgical Intervention Psychosocial: Yes Depression Integumentary: No Blood Disorders: No Adverse Reaction/Blood Tranf: No (N/A) Family Medical History Patient reports no known family medical history. Heart Disease, Diabetes, Other Conditions/Hx Physical Exam Vital Signs - First Documented 07/06/23 15:52 Pulse 80 Resp 17 B/P (MAP) 141/89 Pulse Ox 96 O2 Delivery Room Air Capillary Refill : Height: 6'0" Weight: 260lbs. 0.0oz. [id number]; 37.00 BMI Method:Stated General Appearance: WD/WN, no apparent distress HEENT: PERRL/EOMI, pharynx normal Neck: non-tender, full range of motion, supple, normal inspection Respiratory: No chest non-tender (Tender to palpation along the chest wall and with deep breaths); no respiratory distress, no accessory muscle use, decreased breath sounds; No crackles, No rales; rhonchi, wheezing Cardiovascular: normal peripheral pulses, regular rate, rhythm Gastrointestinal: normal bowel sounds, non tender, soft, no pulsatile mass Extremities: normal range of motion, non-tender, normal capillary refill Neurologic/Psychiatric: alert, oriented x 3 Skin: normal color, warm/dry Focused Exam Lactate Level 07/06/23 14:00: Lactic Acid Level 1.47 Lactic Acid Level Laboratory Tests Test 07/06/23 14:00 Lactic Acid Level 1.47 MMOL/L (0.50-2.00) Progress/Results/Core Measures Suspected Sepsis SIRS Temperature: Pulse: Respiratory Rate: Laboratory Tests 07/06/23 14:00: White Blood Count 16.0H Blood Pressure / Mean: 07/06/23 14:00: Lactic Acid Level 1.47 Laboratory Tests 07/06/23 14:00: Creatinine 1.09, Platelet Count 196, Total Bilirubin 0.8 Results/Orders Lab Results Laboratory Tests Test 07/06/23 13:47 07/06/23 14:00 Range/Units Influenza Type A (RT-PCR) Not Detected Not Detecte Influenza Type B (RT-PCR) Not Detected Not Detecte SARS-CoV-2 RNA (RT-PCR) Not Detected Not Detecte White Blood Count 16.0 H 4.3-11.0 10^3/uL Red Blood Count 4.96 4.30-5.52 10^6/uL Hemoglobin 13.7 13.3-17.7 g/dL Hematocrit 44 40-54 % Mean Corpuscular Volume 89 80-99 fL Mean Corpuscular Hemoglobin 28 25-34 pg Mean Corpuscular Hemoglobin Concent 31 L 32-36 g/dL Red Cell Distribution Width 14.5 10.0-14.5 % Platelet Count 196 130-400 10^3/uL Mean Platelet Volume 11.5 9.0-12.2 fL Immature Granulocyte % (Auto) 0 % Neutrophils (%) (Auto) 62 42-75 % Lymphocytes (%) (Auto) 25 12-44 % Monocytes (%) (Auto) 11 0-12 % Eosinophils (%) (Auto) 1 0-10 % Basophils (%) (Auto) 1 0-10 % Neutrophils # (Auto) 9.8 H 1.8-7.8 10^3/uL Lymphocytes # (Auto) 4.0 1.0-4.0 10^3/uL Monocytes # (Auto) 1.8 H 0.0-1.0 10^3/uL Eosinophils # (Auto) 0.2 0.0-0.3 10^3/uL Basophils # (Auto) 0.1 0.0-0.1 10^3/uL Immature Granulocyte # (Auto) 0.1 0.0-0.1 10^3/uL Neutrophils % (Manual) 59 % Lymphocytes % (Manual) 24 % Monocytes % (Manual) 13 % Eosinophils % (Manual) 2 % Band Neutrophils 1 % Atypical Lymphocytes 1 % Platelet Estimate ADEQUATE Blood Morphology Comment NORMAL Sodium Level 136 135-145 MMOL/L Potassium Level 4.4 3.6-5.0 MMOL/L Chloride Level 100 98-107 MMOL/L Carbon Dioxide Level 26 21-32 MMOL/L Anion Gap 10 5-14 MMOL/L Blood Urea Nitrogen 10 7-18 MG/DL Creatinine 1.09 0.60-1.30 MG/DL Estimat Glomerular Filtration Rate 75 BUN/Creatinine Ratio 9 Glucose Level 88 70-105 MG/DL Lactic Acid Level 1.47 0.50-2.00 MMOL/L Calcium Level 9.0 8.5-10.1 MG/DL Corrected Calcium 9.3 8.5-10.1 MG/DL Magnesium Level 2.3 1.6-2.4 MG/DL Total Bilirubin 0.8 0.1-1.0 MG/DL Aspartate Amino Transf (AST/SGOT) 20 5-34 U/L Alanine Aminotransferase (ALT/SGPT) 13 0-55 U/L Alkaline Phosphatase 94 40-136 U/L C-Reactive Protein 9.15 H <0.50 MG/DL Total Protein 8.0 6.4-8.2 GM/DL Albumin 3.6 3.2-4.5 GM/DL My Orders Orders - WATSON ALBERTO MD Covid 19 Inhouse Test (07/06/23 13:30) Influenza A And B By Pcr (07/06/23 13:30) Cbc And Automated Diff (07/06/23 13:48) Comprehensive Metabolic Panel (07/06/23 13:48) Blood Culture (07/06/23 13:48) Chest 1 View Ap/Pa Only (07/06/23 13:48) Ipratropium/Albuterol Inh Soln (Ipratrop (07/06/23 14:00) Magnesium (07/06/23 13:48) O2 (07/06/23 13:48) Ed Iv/Invasive Line Start (07/06/23 13:48) Sputum Culture (07/06/23 13:48) Crp Fs (07/06/23 13:48) Lactic Acid Analyzer (07/06/23 13:48) Svn Small Volume Nebulizer (07/06/23 13:48) Ns Iv 1000 Ml (Ns Iv 1000 Ml) (07/06/23 13:50) Manual Differential (07/06/23 14:00) Ceftriaxone Iv/Im (Ceftriaxone Iv/Im) (07/06/23 14:44) Azithromycin Tablet (Azithromycin Tabl (07/06/23 14:44) Nursing Communication (Order) (07/06/23 15:05) Rx-Albuterol Inhaler (Rx-Ventolin Hfa In (07/06/23 15:05) Medications Given in ED Current Medications Medications Dose Ordered Sig/Rui Route Start Time Stop Time Status Last Admin Dose Admin Albuterol/ Ipratropium 3 ml ONCE ONCE INH 07/06/23 14:00 07/06/23 14:01 DC 07/06/23 14:06 3 ML Vital Signs/I&O 07/06/23 15:52 Pulse 80 Resp 17 B/P (MAP) 141/89 Pulse Ox 96 O2 Delivery Room Air Capillary Refill : Progress Note #1: Progress Note Differential diagnosis includes pneumonia, influenza, COVID, upper respiratory i nfection, viral infection. Establish peripheral IV access and send labs for complete blood count, comprehensive metabolic profile, blood cultures, lactic acid, CRP. Swab to check influenza and COVID. 1 view chest x-ray to look for signs of infiltrate or acute pulmonary abnormality. Administer normal saline 1 L IV fluid bolus for hydration, DuoNeb breathing treatment to help with cough and shortness of breath. Progress Note #2: Progress Note Labs did not show an elevated white blood cell count. His comprehensive metabolic profile was not showing any acute electrolyte abnormalities. His 1 view chest x-ray showed bilateral lower lobe infiltrate. His COVID and influenza are negative. Patient had improvement after the breathing treatment here. He states with prior pneumonia episodes he has had a inhaler that he has used. He does not currently have an inhaler. Will give him a dose of Rocephin 1 g IV along with azithromycin 500 mg p.o. for community-acquired pneumonia. Send prescription to continue a Z-Bertrand 250 mg daily for 4 more days. Mucinex to help with cough and congestion. Albuterol inhaler and spacer with the patient to take 2 puffs every 4-6 hours as needed for shortness of breath, cough, wheezing. Counseled to check back with the clinic if not improving or having more concerns. Diagnostic Imaging Diagonstic Imaging: Xray Plain Films/CT/US/NM/MRI: chest Comments [facility]. [place], [place] NAME: DONOVAN SANCHEZ [facility] REC#: [id number] PT STATUS: REG ER : 1955 PHYSICIAN: WATSON ALBERTO MD ADMIT DATE: 07/06/23/ER FS Draft Date of Exam:07/06/23 CHEST 1 VIEW AP/PA ONLY EXAMINATION: Chest 1 view HISTORY: cough, short of breath COMPARISON: 05/29/2021 FINDINGS: There are patchy bilateral airspace opacities. No pneumothorax. No pleural effusion. Heart size is normal. IMPRESSION: 1. Patchy bilateral airspace opacities suggestive of pneumonia. Dictated on workstation # [id number] Dict: 07/06/23 1426 Trans: 07/06/23 1428 CV [id number] Interpreted by: MK PAVON MD Electronically signed by: Reviewed: Reviewed by Me Departure Impression Primary Impression: Pneumonia of both lungs due to infectious organism Qualified Codes: J18.9 - Pneumonia, unspecified organism Additional Impressions: Cough Qualified Codes: R05.1 - Acute cough Shortness of breath Disposition: 01 HOME, SELF-CARE Condition: Stable Departure-Patient Inst. Decision time for Depature: 15:07 Referrals: MK CRONIN MD (PCP) Primary Care Physician Patient Instructions: Cough, Adult ED, How to Use a Metered Dose Inhaler ED, How to Use a Spacer, Pneumonia, Adult ED, Shortness of Breath, Adult ED Add. Discharge Instructions: Try to stay well-hydrated and drink plenty of fluids. This will help the Mucinex worked better to loosen and thin out any mucus noted easier for you to cough up and clear it out of your lungs. Take the full course of antibiotics to treat for pneumonia. Use the inhaler 2 puffs every 4-6 hours as needed for wheezing, cough, shortness of breath. Use the spacer with your albuterol inhaler to help get the medicine into your lungs better. Check back with the clinic if not improving. All discharge instructions reviewed with patient and/or family. Voiced u nderstanding. Scripts Guaifenesin (Mucinex) 1,200 Mg Tab.er.12h 1200 MG PO Q12H for Pneumonia for 7 Days, #14 TAB 0 Refills Prov: WATSON ALBERTO MD 07/06/23 Azithromycin (Azithromycin) 250 Mg Tablet 250 MG PO DAILY for Pneumonia for 4 Days, #4 TAB 0 Refills Prov: WATSON ALBERTO MD 07/06/23 WATSON ALBERTO MD Jul 06, 2023 14:44
[2023-07-06 14:49] LABS: POTASSIUM 4.4 MMOL/L (3.6-5.0)
[2023-07-06 14:50] LABS: ALBUMIN 3.6 GM/DL (3.2-4.5); BILIRUBIN,TOTAL 0.8 MG/DL (0.1-1.0); CREATININE SERUM 1.09 MG/DL (0.60-1.30); MAGNESIUM 2.3 MG/DL (1.6-2.4)
[2023-07-06] MEDS ORDERED: RX-ALBUTEROL INHALER 8.5 GM HFA (PROAIR) IH STA (15:05)
[2023-07-06] MEDS ORDERED: GUAI120013 PO (15:08)
[2023-07-06] MEDS ORDERED: AZIT250T12 PO (15:08)
[2023-07-06 15:52] VITALS: BP 141/89
== END 2023-07-06 15:52 | disposition home or self-care (01) ==
LOC: EDUNIT# 13:20 → ER FS 13:21
DX: J18.9 Pneumonia, unspecified organism (principal); G47.30 Sleep apnea, unspecified; E86.0 Dehydration; Z99.89 Dependence on other enabling machines and devices; Z20.822 Contact with and (suspected) exposure to COVID-19
CPT/HCPCS: 36415; 71045; 80053; 83605; 83735; 85007; 85027; 86141; 87040; 87636

== ENCOUNTER 2023-07-08 16:00 | Inpatient (IN) | payer MEDICARE, OTHER ==
[~2023-07-08] VITALS: Ht 183 cm; Wt 117.8 kg
[~2023-07-08 16:00] MED LIST changes: +AZIT250T12 PO; +GUAI120013 PO
[2023-07-08] MEDS ORDERED: methylPREDNISolone INJ 125 MG VIAL IVP ONE (16:30)
[2023-07-08] MEDS ORDERED: BENZONATATE 100 MG CAPSULE PO ONE (16:30)
[2023-07-08] MEDS ORDERED: NS IV 1000 ML 1,000 ML IV SCH ×2 (16:30→18:00)
[2023-07-08] MEDS ORDERED: RT-Ipratropium/Albuterol NEB 3 ML VIAL INH ONE ×3 (16:30→19:30)
[2023-07-08 16:33] LABS: BASOPHILS # (AUTO) 0.1 10^3/uL (0.0-0.1); BASOPHILS % (AUTO) 0 % (0-10); EOSINOPHILS % (AUTO) 0 % (0-10); HEMATOCRIT 41 % (40-54); HEMOGLOBIN 12.7 g/dL (13.3-17.7); LYMPHOCYTES # (AUTO) 1.7 10^3/uL (1.0-4.0); LYMPHOCYTES % (AUTO) 8 % (12-44); MEAN CORPUSCULAR HEMOGLOBIN 28 pg (25-34); MEAN CORPUSCULAR HGB CONC 31 g/dL (32-36); MEAN CORPUSCULAR VOLUME 89 fL (80-99); MEAN PLATELET VOLUME 11.4 fL (9.0-12.2); MONOCYTES # (AUTO) 1.7 10^3/uL (0.0-1.0); MONOCYTES % (AUTO) 8 % (0-12); NEUTROPHILS # (AUTO) 17.7 10^3/uL (1.8-7.8); NEUTROPHILS % (AUTO) 83 % (42-75); PLATELET COUNT 184 10^3/uL (130-400); WHITE BLOOD COUNT 21.4 10^3/uL (4.3-11.0)
[2023-07-08 16:43] LABS: INR 1.5 (0.8-1.4); PROTHROMBIN TIME PATIENT 18.5 SEC (12.2-14.7)
[2023-07-08 16:48] LABS: CREATININE SERUM 1.01 MG/DL (0.60-1.30); POTASSIUM 4.3 MMOL/L (3.6-5.0)
[2023-07-08 16:49] LABS: ALBUMIN 3.4 GM/DL (3.2-4.5); BILIRUBIN,TOTAL 1.7 MG/DL (0.1-1.0); CALCIUM 8.8 MG/DL (8.5-10.1)
--- NOTE | 2023-07-08 16:59 | Diagnostic Imaging Report ---
INDICATION: Shortness of breath and fever. EXAMINATION: Portable chest, 4:49 p.m. FINDINGS: There are bilateral perihilar alveolar infiltrates. Heart size and pulmonary vascularity are normal. There are no effusions or pneumothoraces. IMPRESSION: Bilateral perihilar infiltrates, new since 07/06/2023. Findings are suspicious for pneumonia. Dictated by: Dictated on workstation # [id number]
[2023-07-08] MEDS ORDERED: PIPERACILLIN/Tazobactam 4.5 GM in NS (IVPB) 100 ML 100 ML IV ONE (17:15)
[2023-07-08] MEDS ORDERED: VANCOMYCIN INJECTION 1,000 MG in NS (IVPB) 250 ML 250 ML IV ONE ×4 (17:30)
--- NOTE | 2023-07-08 17:43 | ED Respiratory ---
General Chief Complaint: Respiratory Problems Stated Complaint: SOB Nursing Triage Note: Pt presents to ER with complaints of increased shortness of breath. Pt reports onset of shortness of breath 4-5 days ago, reports that he was seen and evaluated here 2 days ago and dx with pneumonia. Pt denies home O2 use and denies any other underlying resp issues Source: patient, RN notes reviewed Exam Limitations: no limitations History of Present Illness Date Seen by Provider: Jul 08, 2023 Time Seen by Provider: 16:15 Initial Comments 68-year-old male patient presented POV with complaining of shortness of breath and cough. Patient complaining of frequent episode nonproductive cough, shortness of breath, fever up to 102, generalized weakness, posttussive vomiting for the last 1 week. Patient was seen in this emergency room on July 06 and diagnosed with bilateral pneumonia and had treatment with Rocephin in ER and discharged home with Zithromax but he stated his cough is getting worse and his fever was higher than before. Patient stated he checked his oxygen with his a pple watch and it was as low as 87%. Patient had O2 sat of 84% on room air with temperature of 37.8 at arrival to ER. Patient complaining of chest soreness during episode of cough and complaining of generalized weakness. Patient stated he had episode of chronic diarrhea because of Crohn's disease and taking Remicade. According to EMR patient had negative lactic acid and COVID and flu, had white count of 16,000. Patient stated he quit smoking 2 weeks ago. Patient had pneumonia and flu and COVID-vaccine recently. Allergies and Home Medications Allergies Coded Allergies: morphine (Unverified Allergy, Severe, HEART STOPPED, 11/17/18) hydromorphone HCl (Unverified Allergy, Mild, HIVES, 12/25/19) oxycodone (Unverified Allergy, Mild, HIVES, 12/25/19) infliximab-dyyb (Unverified Adverse Reaction, Severe, ATRIAL FIB, 12/05/18) PT WENT INTO A FIB WHILE RECEIVING INFUSION meperidine HCl (Unverified Adverse Reaction, Mild, N/V, 11/17/18) Patient Home Medication List Home Medication List Reviewed: Yes Amoxicillin/Potassium Clav (Amox Tr-K Clv 875-125 mg Tab) 875 Mg-125 Mg Tablet, 1 EACH PO BID Prescribed by: ELENA GARCIA MD on 07/06/22 1643 Aripiprazole (Aripiprazole) 10 Mg Tablet, 10 MG PO DAILY, (Reported) Entered as Reported by: TOBY RIBERA on 12/25/19 1145 Azathioprine (Azathioprine) 50 Mg Tablet, 150 MG PO DAILY, (Reported) Entered as Reported by: ZHENG EAGLE on 11/17/18 1021 Azathioprine (Azasan) 100 Mg Tablet, 250 MG PO DAILY, (Reported) Entered as Reported by: TOBY RIBERA on 12/25/19 1145 Azithromycin (Azithromycin) 500 Mg Tablet, 500 MG PO DAILY Prescribed by: WATSON ALBERTO on 05/29/21 0906 Azithromycin (Azithromycin) 250 Mg Tablet, 250 MG PO DAILY Prescribed by: WATSON ALBERTO on 07/06/23 1508 Cholestyramine (Cholestyramine Resin) 5 Gm Powder, 4 GM PO BID PRN for DIARRHEA, (Reported) Entered as Reported by: VALORIE HEREDIA on 01/30/19 1237 Cyanocobalamin (Cyanocobalamin Injection) 1,000 Mcg/Ml Inj, 1,000 MCG IM MONTHLY, (Reported) Entered as Reported by: ZHENG EAGLE on 11/17/18 1021 Diphenoxylate HCl/Atropine (Lomotil 2.5-0.025 mg Tablet) 1 Each Tablet, 2 TAB PO TID, (Reported) Entered as Reported by: ZHENG EAGLE on 11/17/18 1035 Doxazosin Mesylate (Doxazosin Mesylate) 1 Mg Tablet, 1 MG PO HS, (Reported) Entered as Reported by: VALORIE HEREDIA on 01/30/19 1237 Ergocalciferol (Vitamin D2) (Vitamin D2) 2,000 Unit Tablet, 50,000 UNIT PO Mo, (Reported) Entered as Reported by: TOBY RIBERA on 12/25/19 1145 Fish Oil/Dha/Epa (Fish Oil 1,200 mg Fish Oil) 1 Each Capsule, 1,200 MG PO DAILY, (Reported) Entered as Reported by: ZHENG EAGLE on 11/17/18 1021 Folic Acid (Folic Acid) 0.4 Mg Tablet, 0.4 MG PO DAILY, (Reported) Entered as Reported by: ZHENG EAGLE on 11/17/18 1021 Guaifenesin (Mucinex) 1,200 Mg Tab.er.12h, 1,200 MG PO Q12H Prescribed by: WATSON ALBERTO on 07/06/23 1508 Infliximab (Remicade) 100 Mg Soln, 10 MG IV Q6 WEEKS, (Reported) Entered as Reported by: VALORIE HEREDIA on 01/30/19 1237 L.acidoph & Paracasei,B.lactis (Probiotic) 1 Each Capsule, 1 CAP PO DAILY, (Reported) Entered as Reported by: ZHENG EAGLE on 11/17/18 1021 Loperamide HCl (Loperamide) 2 Mg Tablet, 2 MG PO TID PRN for DIARRHEA, (Reported) Entered as Reported by: VALORIE HEREDIA on 01/30/19 1237 Magnesium Oxide (Magnesium Oxide) 400 Mg Tablet, 400 MG PO BID, (Reported) Entered as Reported by: VALORIE HEREDIA on 01/30/19 1237 Metoprolol Succinate (Metoprolol Succinate) 200 Mg Tab.er.24h, 200 MG PO BID, (Reported) Entered as Reported by: TOBY RIBERA on 12/25/19 1145 Montelukast Sodium (Montelukast Sodium) 10 Mg Tablet, 10 MG PO HS, (Reported) Entered as Reported by: ZHENG EAGLE on 11/17/18 1021 Multivitamin (Multiple Vitamins) 1 Each Tablet, 1 TAB PO DAILY, (Reported) Entered as Reported by: ZHENG EAGLE on 11/17/18 1035 Pantoprazole Sodium (Pantoprazole Sodium) 40 Mg Tablet.dr, 40 MG PO DAILY, (Reported) Entered as Reported by: ZHENG EAGLE on 11/17/18 1021 Paroxetine HCl (Paroxetine HCl) 30 Mg Tablet, 30 MG PO DAILY, (Reported) Entered as Reported by: TOBY RIBERA on 12/25/19 1145 Phenazopyridine HCl (Pyridium) 200 Mg Tablet, 1 TAB PO TID Prescribed by: ELIZABETH BARROSO on 12/26/19 1109 Potassium Citrate (Potassium Citrate ER) 10 Meq Tablet.er, 10 MEQ PO TID, (Reported) Entered as Reported by: CARLOS PAUL on 04/03/19 1400 Simvastatin (Simvastatin) 10 Mg Tablet, 10 MG PO DAILY, (Reported) Entered as Reported by: ZHENG EAGLE on 11/17/18 1021 Sulfamethoxazole/Trimethoprim (Bactrim Ds Tablet) 1 Each Tablet, 1 EACH PO BID Prescribed by: ELIZABETH BARROSO on 12/26/19 1129 Tadalafil (Cialis) 5 Mg Tablet, 5 MG PO PRN, (Reported) Entered as Reported by: VALORIE HEREDIA on 01/30/19 1237 Tamsulosin HCl (Flomax) 0.4 Mg Cap, 0.4 MG PO HS, (Reported) Entered as Reported by: CARLOS PAUL on 04/03/19 1400 Tamsulosin HCl (Flomax) 0.4 Mg Cap, 0.4 MG PO DAILY Prescribed by: ELIZABETH BARROSO on 12/26/19 1109 Tramadol HCl (Tramadol HCl) 50 Mg Tablet, 1-2 TAB PO Q4H PRN for PAIN-MODERATE (5-7) Prescribed by: ELIZABETH BARROSO on 12/26/19 1109 Review of Systems Review of Systems Constitutional: see HPI, chills, fever, malaise EENTM: see HPI Respiratory: see HPI Cardiovascular: see HPI Genitourinary: see HPI Musculoskeletal: see HPI Skin: no symptoms reported Psychiatric/Neurological: No Symptoms Reported Hematologic/Lymphatic: No Symptoms Reported All Other Systems Reviewed Negative Unless Noted: Yes Past Gkllbxb-Kdouki-[place] Hx Patient Social History Tobacco Use?: Yes Tobacco type used: Cigarettes Smoking Status: Former Smoker Use of E-Cig and/or Vaping dev: No Substance use?: No Alcohol Use?: No Pt feels they are or have been: No Immunizations Up To Date PED Vaccines UTD: Yes Influenza Vaccine Up-to-Date: Yes; Up-to-Date First/Initial COVID19 Vaccinat: 05/25/2021 Second COVID19 Vaccination Darci: 05/25/2021 Third COVID19 Vaccination Date: 05/25/2021 Seasonal Allergies Seasonal Allergies: No Past Medical History Surgery/Hospitalization HX: Hx of sleep apnea and Crohn's disease Surgeries: Yes (SMALL BOWEL RESECTION, HERNIA, KIDNEY STONES, NECK,TESTICULAR MASS) Abdominal, Appendectomy, Bowel Surgery, Gallbladder, Tonsillectomy, Vasectomy Respiratory: Yes Sleep Apnea Currently Using CPAP: Yes Currently Using BIPAP: No Cardiac: Yes (CARDIOVERSION 11/16/18) Atrial Fibrillation, High Cholesterol, Hypertension Neurological: No Reproductive Disorders: No Sexually Transmitted Disease: No HIV/AIDS: No Genitourinary: Yes (HX ESWL) Benign Prostatic Hyperpl, Kidney Stones Gastrointestinal: Yes (REMICADE (ALLERGY INFLECTRA)) Abdominal Hernia, Crohns Disease, Chronic Diarrhea Musculoskeletal: Yes Arthritis Endocrine: Yes (CUSHINGS DISEASE) Adrenal Disease HEENT: No (GLASSES, DETNURES) Loss of Vision: Denies Hearing Impairment: Denies Cancer: Yes Skin Did You Recieve Any Treatments: Yes What Type of Treatment Did You: Surgical Intervention Psychosocial: Yes Depression Integumentary: No Blood Disorders: No Adverse Reaction/Blood Tranf: No (N/A) Family Medical History Patient reports no known family medical history. Heart Disease, Diabetes, Other Conditions/Hx Physical Exam Vital Signs - First Documented 07/08/23 07/08/23 16:00 16:09 Temp 37.8 Pulse 111 Resp 22 B/P (MAP) 146/69 (94) Pulse Ox 92 O2 Delivery Nasal Cannula O2 Flow Rate 6.00 Capillary Refill : Less Than 3 Seconds Height: 6'0" Weight: 260lbs. 0.0oz. [id number]; 34.00 BMI Method:Stated General Appearance: moderate distress, obese Eyes: Bilateral Eye Normal Inspection HEENT: PERRL/EOMI, normal ENT inspection Neck: non-tender, full range of motion Respiratory: chest non-tender, respiratory distress (Mild), accessory muscle use (mild), rales, rhonchi, wheezing Cardiovascular: no edema, no gallop, tachycardia Gastrointestinal: normal bowel sounds, non tender Extremities: normal range of motion, non-tender Neurologic/Psychiatric: alert, normal mood/affect, oriented x 3 Skin: normal color, warm/dry Lymphatic: no adenopathy Focused Exam Lactate Level 07/08/23 16:09: Lactic Acid Level 4.10*H 07/08/23 18:09: Lactic Acid Level 1.94 Lactic Acid Level Laboratory Tests Test 07/08/23 16:09 07/08/23 18:09 Lactic Acid Level 4.10 MMOL/L (0.50-2.00) *H 1.94 MMOL/L (0.50-2.00) Progress/Results/Core Measures Suspected Sepsis SIRS Temperature: Pulse: 111 Respiratory Rate: 22 Laboratory Tests 07/08/23 16:09: White Blood Count 21.4H Blood Pressure 146 /69 Mean: 84 07/08/23 16:09: Lactic Acid Level 4.10*H 07/08/23 18:09: Lactic Acid Level 1.94 Laboratory Tests 07/08/23 16:09: Creatinine 1.01, INR Comment 1.5H, Platelet Count 184, Total Bilirubin 1.7H Results/Orders Lab Results Laboratory Tests Test 07/08/23 16:09 07/08/23 18:09 Range/Units White Blood Count 21.4 H 4.3-11.0 10^3/uL Red Blood Count 4.58 4.30-5.52 10^6/uL Hemoglobin 12.7 L 13.3-17.7 g/dL Hematocrit 41 40-54 % Mean Corpuscular Volume 89 80-99 fL Mean Corpuscular Hemoglobin 28 25-34 pg Mean Corpuscular Hemoglobin Concent 31 L 32-36 g/dL Red Cell Distribution Width 14.5 10.0-14.5 % Platelet Count 184 130-400 10^3/uL Mean Platelet Volume 11.4 9.0-12.2 fL Immature Granulocyte % (Auto) 1 % Neutrophils (%) (Auto) 83 H 42-75 % Lymphocytes (%) (Auto) 8 L 12-44 % Monocytes (%) (Auto) 8 0-12 % Eosinophils (%) (Auto) 0 0-10 % Basophils (%) (Auto) 0 0-10 % Neutrophils # (Auto) 17.7 H 1.8-7.8 10^3/uL Lymphocytes # (Auto) 1.7 1.0-4.0 10^3/uL Monocytes # (Auto) 1.7 H 0.0-1.0 10^3/uL Eosinophils # (Auto) 0.0 0.0-0.3 10^3/uL Basophils # (Auto) 0.1 0.0-0.1 10^3/uL Immature Granulocyte # (Auto) 0.3 H 0.0-0.1 10^3/uL Prothrombin Time 18.5 H 12.2-14.7 SEC INR Comment 1.5 H 0.8-1.4 Activated Partial Thromboplast Time 30 24-35 SEC Sodium Level 132 L 135-145 MMOL/L Potassium Level 4.3 3.6-5.0 MMOL/L Chloride Level 97 L 98-107 MMOL/L Carbon Dioxide Level 19 L 21-32 MMOL/L Anion Gap 16 H 5-14 MMOL/L Blood Urea Nitrogen 14 7-18 MG/DL Creatinine 1.01 0.60-1.30 MG/DL Estimat Glomerular Filtration Rate 82 BUN/Creatinine Ratio 14 Glucose Level 144 H 70-105 MG/DL Lactic Acid Level 4.10 *H 1.94 0.50-2.00 MMOL/L Calcium Level 8.8 8.5-10.1 MG/DL Corrected Calcium 9.3 8.5-10.1 MG/DL Total Bilirubin 1.7 H 0.1-1.0 MG/DL Aspartate Amino Transf (AST/SGOT) 48 H 5-34 U/L Alanine Aminotransferase (ALT/SGPT) 15 0-55 U/L Alkaline Phosphatase 92 40-136 U/L Pro-B-Type Natriuretic Peptide 512.5 H <125.0 PG/ML Total Protein 8.0 6.4-8.2 GM/DL Albumin 3.4 3.2-4.5 GM/DL My Orders Orders - DIONY REDDY MD Cbc And Automated Diff (07/08/23 16:) Comprehensive Metabolic Panel (07/08/23 16:) Blood Culture (07/08/23 16:) Protime With Inr (07/08/23:) Partial Thromboplastin Time (07/08/23 16:26) Chest 1 View Ap/Pa Only (07/08/23 16:26) Ed Iv/Invasive Line Start (07/08/23 16:26) O2 (07/08/23 16:26) Lactic Acid Analyzer (07/08/23 16:) Ns Iv 1000 Ml (Ns Iv 1000 Ml) (07/08/23 16:30) Arterial Blood Gas (07/08/23 16:) Ipratropium/Albuterol Inh Soln (Ipratrop (07/08/23 16:30) Svn Small Volume Nebulizer (07/08/23 16:26) Methylprednisolone Sod Succ (Methylpredn (07/08/23 16:30) Benzonatate Capsule (Benzonatate Capsule (07/08/23 16:30) Probnp Fs (07/08/23 16:09) Piperacillin/Tazobactam (Piperacillin/Ta (07/08/23 17:15) Vancomycin Injection (Vancomycin Injecti (07/08/23 17:30) Vancomycin Injection (Vancomycin Injecti (07/08/23 17:30) Ns Iv 1000 Ml (Ns Iv 1000 Ml) (07/08/23 18:00) Ondansetron Injection (Ondansetron Inj (07/08/23 18:00) Fentanyl Injection (Fentanyl Injection (07/08/23 18:00) Ed Admission (Communication) (07/08/23 18:27) Ipratropium/Albuterol Inh Soln (Ipratrop (07/08/23 19:30) Svn Small Volume Nebulizer (07/08/23 19:29) Ipratropium/Albuterol Inh Soln (Ipratrop (07/08/23 19:30) Svn Small Volume Nebulizer (07/08/23 19:30) Medications Given in ED Current Medications Medications Dose Ordered Sig/Rui Route Start Time Stop Time Status Last Admin Dose Admin Albuterol/ Ipratropium 3 ml ONCE ONCE INH 07/08/23 16:30 07/08/23 16:31 DC 07/08/23 16:54 3 ML Albuterol/ Ipratropium 3 ml ONCE ONCE INH 07/08/23 19:30 07/08/23 19:31 DC 07/08/23 19:32 3 ML Benzonatate 200 mg ONCE ONCE PO 07/08/23 16:30 07/08/23 16:31 DC 07/08/23 16:41 200 MG Fentanyl Citrate 50 mcg ONCE ONCE IVP 07/08/23 18:00 07/08/23 18:03 DC 07/08/23 18:09 50 MCG Methylprednisolone Sodium Succinate 125 mg ONCE ONCE IVP 07/08/23 16:30 07/08/23 16:31 DC 07/08/23 16:39 125 MG Ondansetron HCl 4 mg ONCE ONCE IVP 07/08/23 18:00 07/08/23 18:03 DC 07/08/23 18:07 4 MG Piperacillin Sod/ Tazobactam Sod 4.5 gm/Sodium Chloride 100 ml @ 200 mls/hr ONCE ONCE IV 07/08/23 17:15 07/08/23 17:44 DC 07/08/23 18:13 200 MLS/HR Vancomycin HCl 1000 mg/Sodium Chloride 250 ml @ 250 mls/hr ONCE ONCE IV 07/08/23 17:30 07/08/23 18:29 DC 07/08/23 18:44 250 MLS/HR Vital Signs/I&O 07/08/23 07/08/23 07/08/23 07/08/23 16:00 16:09 16:25 17:38 Temp 37.8 Pulse 111 103 Resp 22 20 B/P (MAP) 146/69 (94) 120/66 (84) Pulse Ox 92 84 92 O2 Delivery Nasal Cannula Room Air Room Air Nasal Cannula O2 Flow Rate 6.00 6.00 5.00 07/08/23 07/08/23 07/08/23 18:17 19:08 19:25 Pulse 98 106 104 Resp 20 22 29 B/P (MAP) 123/61 (81) 96/71 (79) 129/72 Pulse Ox 91 93 91 O2 Delivery Nasal Cannula OxyMask O2 Flow Rate 5.00 15.00 15.00 Capillary Refill : Less Than 3 Seconds Blood Pressure Mean: 84 Progress Note : Progress Note Differential diagnosis: Pneumonia, sepsis, acute respiratory distress, dehydrat ion 68-year-old male patient with complaining of cough and shortness of breath and fever for almost 1 week that did not get better with treatment given 2 days ago in this emergency room with diagnosis of bilateral pneumonia. Patient had O2 sat of 85% at arrival to ER at room air that improved with oxygen per nasal cannula. Patient had mild respiratory distress and bilateral wheezing and rhonchi and rales. CBC, CMP, lactic acid, BNP, PT/INR and PTT, ABG and chest x- ray was ordered and reviewed by me. Chest x-ray showed bilateral pneumonia. White count was 21,000 and lactic acid was 4.1. Drawing blood for ABG was unsuccessful. Patient treated with IV fluid, Solu-Medrol, DuoNeb, Zosyn and vancomycin. Patient complaining of increasing pain in chest during cough and treated with Zofran and fentanyl. Patient had gradual drop of O2 sat to 91% on 6 L of oxygen and facial mask was started with improvement of his condition. On-call hospitalist Dr. Whitfield was consulted at 1822 and accepted admission to ICU and agrees with plan of care. Patient and his family was updated frequently about test results and plan of care and needs for admission and all questions was addressed. Patient had drop of oxygen to 88 and 89% on facial mask and DuoNeb. Given with improvement of his oxygen to 91 and 92% just before transferring by ambulance to [facility]. Diagnostic Imaging Diagonstic Imaging: Xray Plain Films/CT/US/NM/MRI: chest Comments 1 view chest x-ray interpreted by me and showed bilateral infiltrate. 1 view chest x-ray interpreted by radiologist and showed: [facility] [place] NAME: DONOVAN SANCHEZ [facility] REC#: [id number] PT STATUS: REG ER : 1955 PHYSICIAN: DIONY REDDY MD ADMIT DATE: 07/08/23/ER FS Signed Date of Exam:07/08/23 CHEST 1 VIEW AP/PA ONLY INDICATION: Shortness of breath and fever. EXAMINATION: Portable chest, 4:49 p.m. FINDINGS: There are bilateral perihilar alveolar infiltrates. Heart size and pulmonary vascularity are normal. There are no effusions or pneumothoraces. IMPRESSION: Bilateral perihilar infiltrates, new since 07/06/2023. Findings are suspicious for pneumonia. Dictated by: Dictated on workstation # [id number] Dict: 07/08/23 1655 Trans: 07/08/23 1722 [id number] Interpreted by: GI SINGH MD Electronically signed by: GI SINGH MD 07/08/23 1722 Critical Care Note Critical Care Start Time: 16:15 Stop Time: 17:30 Total Time (minutes) 75 minutes Progress Critical time including taking history, examination, ordering labs and m edication, reviewing labs and chest x-ray, ordering medication for sepsis and pneumonia, consulting accepting physician, updating patient and his family, documentation. Departure Communication (Admissions) Time/Spoke to Admitting Phy: 18:22 Dr. Whitfield on-call hospitalist accepted admission to [facility]. Family Conversation Patient and his family informed about plan of admission. Impression Primary Impression: Severe sepsis Additional Impressions: Pneumonia of both lungs due to infectious organism Chest wall pain Cough Respiratory distress Fever in adult Disposition: 30 STILL A PATIENT Condition: Improved Admissions Decision to Admit Reason: Admit from ER (General) Decision to Admit/Date: Jul 08, 2023 Time/Decision to Admit Time: 18:25 Departure-Patient Inst. Referrals: MK CRONIN MD (PCP/Family) Primary Care Physician DIONY REDDY MD Jul 08, 2023 17:43
[2023-07-08] MEDS ORDERED: fentaNYL INJECTION 100 MCG/2 ML VIAL IVP ONE (18:00)
[2023-07-08] MEDS ORDERED: ONDANSETRON INJECTION 4 MG/2 ML (SDV) IVP ONE (18:00)
[2023-07-08] MEDS ORDERED: PIPERACILLIN/Tazobactam 4.5 GM in NS (IVPB) 100 ML 100 ML IV SCH (21:00)
[2023-07-08] MEDS ORDERED: VANCOMYCIN INJECTION 0.1 MG in NS (IVPB) 250 ML 250 ML IV SCH (21:00)
[2023-07-08] MEDS ORDERED: RT-Ipratropium/Albuterol NEB 3 ML VIAL INH PRN ×2 (21:00→22:00)
[2023-07-08 21:01] VITALS: BP 139/96
--- NOTE | 2023-07-08 21:28 | Tele-ICU Consult ---
History of Present Illness History of Present Illness Date Seen by Provider: Jul 08, 2023 Time Seen by Provider: 21:27 Date of Admission 07/08/23 Reason for Visit: fever and cough History of Present Illness (Tele-ICU Physician , Progress Note ) Service provided via interactive audio and video [facility] system to a patient admitted to ICU bed in [facility]. Patient is seen today due to persistent need of ICU care Available chart/ vitals / labs / Images reviewed Video assessment done using teleICU camera, rest of exam as per RN He is a 68-year-old male with past medical history of fall hypertension, Crohn's disease on Remicade, morbid obesity, obstructive sleep apnea presented to the emergency room with a complaint of shortness of breath, cough and a fever up to 102 F. 2 days ago he was seen in the emergency room was not treated with 1 dose of Rocephin followed by Zithromax but his symptoms have been getting worse hence he came to the emergency room. He is found to have a bilateral infiltrates in the lungs as well as hypoxia. Hence he is admitted to the intensive care unit. He did not improve with placement of 15 L of oxygen mask hence he is placed on a BiPAP mask. He has been a smoker but he quit about 2 weeks ago. Recently he was tested for COVID and a flu which has been negative. Today his lactic acid is elevated. Impression 1. Bilateral pneumonia in a patient who is on Remicade we need to consider gram-negative pneumonias in the differential diagnosis 2. Severe sepsis syndrome 3. Acute hypoxic respiratory failure. 4. History of sleep apnea 5. History of hypertension 6. Chron's disease. Recommendations 1. Hydrate patient with Ringer lactate 2. Broad-spectrum antibiotics with vancomycin and IV Bibiana 3. BiPAP ventilation 4. Bronchodilator therapy 5. DVT prophylaxis. 6. Follow-up blood cultures and sputum cultures. 7. Paresh Homero Syndrome Coordination of care with primary care physician and bedside consultants. I am remotely monitoring this patient from Tele icu station in [place]. I am unable to do the bedside exam, and history/physical and pertinent information is taken from other notes in the computer and bedside staff. Certain portions of this document may have been dictated utilizing voice recognition technology such as [employer]. Inherent to this technology, typographical and grammatical errors may exist. As much as I am diligent to identify and correct to these mistakes, some errors may remain in the document. Critical care time devoted to this patient today is approximately is 40 minutes-- Allergies and Home Medications Allergies Coded Allergies: morphine (Unverified Allergy, Severe, HEART STOPPED, 11/17/18) hydromorphone HCl (Unverified Allergy, Mild, HIVES, 12/25/19) oxycodone (Unverified Allergy, Mild, HIVES, 12/25/19) infliximab-dyyb (Unverified Adverse Reaction, Severe, ATRIAL FIB, 12/05/18) PT WENT INTO A FIB WHILE RECEIVING INFUSION meperidine HCl (Unverified Adverse Reaction, Mild, N/V, 11/17/18) Home Medications Amoxicillin/Potassium Clav 875 Mg-125 Mg Tablet, 1 EACH PO BID Prescribed by: ELENA GARCIA MD on 07/06/22 1643 Aripiprazole 10 Mg Tablet, 10 MG PO DAILY, (Reported) Azathioprine 50 Mg Tablet, 150 MG PO DAILY, (Reported) TAKES 3 (50MG) TABLETS Azathioprine 100 Mg Tablet, 250 MG PO DAILY, (Reported) Azithromycin 500 Mg Tablet, 500 MG PO DAILY Prescribed by: WATSON ALBERTO on 05/29/21 0906 Azithromycin 250 Mg Tablet, 250 MG PO DAILY Prescribed by: WATSON ALBERTO on 07/06/23 1508 Cholestyramine 5 Gm Powder, 4 GM PO BID PRN for DIARRHEA, (Reported) Cyanocobalamin 1,000 Mcg/Ml Inj, 1,000 MCG IM MONTHLY, (Reported) Diphenoxylate HCl/Atropine 1 Each Tablet, 2 TAB PO TID, (Reported) Doxazosin Mesylate 1 Mg Tablet, 1 MG PO HS, (Reported) USE IF SYSTOLIC BP IS <180 Ergocalciferol (Vitamin D2) 2,000 Unit Tablet, 50,000 UNIT PO Mo, (Reported) Fish Oil/Dha/Epa 1 Each Capsule, 1,200 MG PO DAILY, (Reported) Folic Acid 0.4 Mg Tablet, 0.4 MG PO DAILY, (Reported) Guaifenesin 1,200 Mg Tab.er.12h, 1,200 MG PO Q12H Prescribed by: WATSON ALBERTO on 07/06/23 1508 Infliximab 100 Mg Soln, 10 MG IV Q6 WEEKS, (Reported) L.acidoph & Paracasei,B.lactis 1 Each Capsule, 1 CAP PO DAILY, (Reported) Loperamide HCl 2 Mg Tablet, 2 MG PO TID PRN for DIARRHEA, (Reported) Magnesium Oxide 400 Mg Tablet, 400 MG PO BID, (Reported) Metoprolol Succinate 200 Mg Tab.er.24h, 200 MG PO BID, (Reported) Montelukast Sodium 10 Mg Tablet, 10 MG PO HS, (Reported) Multivitamin 1 Each Tablet, 1 TAB PO DAILY, (Reported) Pantoprazole Sodium 40 Mg Tablet.dr, 40 MG PO DAILY, (Reported) Paroxetine HCl 30 Mg Tablet, 30 MG PO DAILY, (Reported) Phenazopyridine HCl 200 Mg Tablet, 1 TAB PO TID Prescribed by: ELIZABETH BARROSO on 12/26/19 110 Potassium Citrate 10 Meq Tablet.er, 10 MEQ PO TID, (Reported) Simvastatin 10 Mg Tablet, 10 MG PO DAILY, (Reported) Sulfamethoxazole/Trimethoprim 1 Each Tablet, 1 EACH PO BID Prescribed by: ELIZABETH BARROSO on 12/26/19 1129 Tadalafil 5 Mg Tablet, 5 MG PO PRN, (Reported) Tamsulosin HCl 0.4 Mg Cap, 0.4 MG PO HS, (Reported) Tamsulosin HCl 0.4 Mg Cap, 0.4 MG PO DAILY Prescribed by: ELIZABETH BARROSO on 12/26/19 1109 Tramadol HCl 50 Mg Tablet, 1-2 TAB PO Q4H PRN for PAIN-MODERATE (5-7) Prescribed by: ELIZABETH BARROSO on 12/26/19 1109 Past Medical/Social/Family Hx Patient Social History Tobacco Use?: Yes Tobacco type used: Cigarettes Smoking Status: Former Smoker Use of E-Cig and/or Vaping dev: No Substance use?: No Alcohol Use?: No Pt stated abuse/neglect: No Immunizations Up To Date Influenza Vaccine Up-to-Date: Yes; Up-to-Date First/Initial COVID19 Vaccinat: 05/25/2021 Second COVID19 Vaccination Darci: 05/25/2021 Date of Pneumonia Vaccine: Jul 09, 2019 Current Status Advance Directives: No Communicates: Verbally Primary Language: Sri [place]ankan Preferred Spoken Language: [place]ankan Is interpretation needed?: No Review of Systems Constitutional: see HPI, fever, weakness Focused Exam Lactate Level 07/08/23 16:09: Lactic Acid Level 4.10*H 07/08/23 18:09: Lactic Acid Level 1.94 Height, Weight, BMI Height: 6'0" Weight: 260lbs. 0.0oz. 117.581366lw; 34.00 BMI Method:Stated Lactic Acid Level Laboratory Tests Test 07/08/23 18:09 Lactic Acid Level 1.94 MMOL/L (0.50-2.00) Exam Exam Patient acknowledged, consented, and participated in this virtual visit which was conducted using real time audio/video Vital Signs Date Time Temp Pulse Resp B/P (MAP) Pulse Ox O2 Delivery O2 Flow Rate FiO2 07/08/23 21:01 32 96 80.00 07/08/23 19:25 104 29 129/72 91 OxyMask 15.00 07/08/23 19:08 106 22 96/71 (79) 93 15.00 07/08/23 18:17 98 20 123/61 (81) 91 Nasal Cannula 5.00 07/08/23 17:38 103 20 120/66 (84) 92 Nasal Cannula 5.00 07/08/23 16:25 Room Air 6.00 07/08/23 16:09 37.8 111 22 146/69 (94) 84 Room Air 07/08/23 16:00 92 Nasal Cannula 6.00 Height & Weight Height: 6'0" Weight: 260lbs. 0.0oz. 117.563817um; 34.00 BMI Method:Stated General Appearance: Chronically ill, Moderate Distress, Obese Capillary Refill: Less Than 3 Seconds Gastrointestinal: normal bowel sounds, non tender Results Lab Laboratory Tests 07/08/23 16:09 Assessment/Plan Assessment/Plan as above Critical Care: Critically Ill Patient Time spent with patient (mins): 40 JEWEL MCDONOUGH MD Jul 08, 2023 21:28
[2023-07-08] MEDS ORDERED: VANCOMYCIN 500 MG/NS 100 ML IV ONE ×2 (21:30)
[2023-07-08 21:33] LABS: ABG BASE EXCESS -5.5 MMOL/L (-2.5-2.5); ABG OXYGEN SATURATION 90 % (94-100); ABG PCO2 43 MMHG (35-45); ABG PO2 71 MMHG (79-93); ABG TCO2 21.3 MMOL/L (21.0-31.0)
[2023-07-08 21:35] LABS: ABG PH 7.29 (7.37-7.43); ALLENS TEST YES-POS; PATIENT TEMP 36.7; VENTILATOR NO
[2023-07-08 21:39] VITALS: BP 139/96
[2023-07-08] MEDS: NS IV 1000 ML 1,000 ML IV SCH (21:52)
[2023-07-08] MEDS ORDERED: ACETAMINOPHEN 500 MG TABLET PO PRN (22:00)
[2023-07-08] MEDS: RT-Ipratropium/Albuterol NEB 3 ML VIAL INH SCH (22:34)
[2023-07-08 22:35] VITALS: BP 118/62
[2023-07-08] MEDS: fentaNYL INJECTION 100 MCG/2 ML VIAL IVP PRN (22:48)
[2023-07-08] MEDS: ENOXAPARIN 40 MG/0.4 ML SYRINGE SC SCH (22:48)
[2023-07-08 23:15] LABS: ABG BASE EXCESS -5.6 MMOL/L (-2.5-2.5); ABG OXYGEN SATURATION 98 % (94-100); ABG PCO2 44 MMHG (35-45); ABG PO2 114 MMHG (79-93); ABG TCO2 21.3 MMOL/L (21.0-31.0)
[2023-07-08 23:18] LABS: ABG PH 7.28 (7.37-7.43); ALLENS TEST YES-POS; INSPIRED O2 80%; VENTILATOR NO
[2023-07-09] VITALS (7 sets, daily range): BP systolic 80–140; BP diastolic 58–101
[2023-07-09] MEDS: methylPREDNISolone INJ 125 MG VIAL IV SCH ×3 (01:51→16:41)
[2023-07-09] MEDS: PIPERACILLIN/Tazobactam 4.5 GM in NS (IVPB) 100 ML 100 ML IV SCH ×3 (01:51→16:41)
[2023-07-09] MEDS: RT-Ipratropium/Albuterol NEB 3 ML VIAL INH SCH ×6 (03:05→21:57)
[2023-07-09 05:08] LABS: BASOPHILS # (AUTO) 0.1 10^3/uL (0.0-0.1); BASOPHILS % (AUTO) 0 % (0-10); EOSINOPHILS % (AUTO) 0 % (0-10); HEMATOCRIT 38 % (40-54); HEMOGLOBIN 11.7 g/dL (13.3-17.7); LYMPHOCYTES # (AUTO) 0.7 10^3/uL (1.0-4.0); LYMPHOCYTES % (AUTO) 3 % (12-44); MEAN CORPUSCULAR HEMOGLOBIN 28 pg (25-34); MEAN CORPUSCULAR HGB CONC 31 g/dL (32-36); MEAN CORPUSCULAR VOLUME 90 fL (80-99); MONOCYTES # (AUTO) 0.7 10^3/uL (0.0-1.0); MONOCYTES % (AUTO) 3 % (0-12); NEUTROPHILS # (AUTO) 21.1 10^3/uL (1.8-7.8); NEUTROPHILS % (AUTO) 93 % (42-75); PLATELET COUNT 133 10^3/uL (130-400); WHITE BLOOD COUNT 22.8 10^3/uL (4.3-11.0)
[2023-07-09 05:22] LABS: POTASSIUM 4.4 MMOL/L (3.6-5.0)
[2023-07-09 05:23] LABS: CALCIUM 8.4 MG/DL (8.5-10.1)
[2023-07-09 05:25] LABS: TOTAL PROTEIN 7.2 GM/DL (6.4-8.2)
[2023-07-09 05:26] LABS: BILIRUBIN,TOTAL 0.9 MG/DL (0.1-1.0)
[2023-07-09 05:28] LABS: CREATININE SERUM 0.87 MG/DL (0.60-1.30); PHOSPHORUS 2.6 MG/DL (2.3-4.7)
[2023-07-09 05:31] LABS: MAGNESIUM 1.9 MG/DL (1.6-2.4)
[2023-07-09 05:50] LABS: BAND NEUTROPHILS 13 %; LYMPHOCYTES % (MANUAL) 6 %; NEUTROPHILS % (MANUAL) 78 %; REACTIVE LYMPHOCYTES 2 %
[2023-07-09] MEDS: VANCOMYCIN 1250MG/250ML PREMIX 250 ML IV SCH (07:29)
[2023-07-09] MEDS: NS IV 1000 ML 1,000 ML IV SCH ×4 (07:29→23:00)
[2023-07-09 08:11] LABS: ABG BASE EXCESS -3.9 MMOL/L (-2.5-2.5); ABG OXYGEN SATURATION 100 % (94-100); ABG PCO2 51 MMHG (35-45); ABG PO2 132 MMHG (79-93); ABG TCO2 23.7 MMOL/L (21.0-31.0)
[2023-07-09 08:16] LABS: ABG PH 7.26 (7.37-7.43); ALLENS TEST YES-POS
[2023-07-09 08:17] LABS: INSPIRED O2 80%; PATIENT TEMP 36.7; VENTILATOR NO
--- NOTE | 2023-07-09 08:34 | Tele-ICU Progress Note ---
Subjective Date Seen by a Provider: Jul 09, 2023 Time Seen by a Provider: 08:29 Subjective/Events-last exam 68 yo M admitted with bilateral diffuse PNA, started on IV Vanco, Zosyn, Pt on BIPAP 16/03, FiO2 80%, ABG today 7.26/51/132, Not working hard to breathe, CXR still shows bilateral diffuse infiltrates WBC 11, BMP ok, LA was 4.10, now 1.94 Blood cultures from 07/06, show NG Sepsis Event Evaluation Height, Weight, BMI Height: 6'0" Weight: 260lbs. 0.0oz. 117.285681qv; 35.14 BMI Method:Stated Focused Exam Lactate Level 07/08/23 16:09: Lactic Acid Level 4.10*H 07/08/23 18:09: Lactic Acid Level 1.94 Exam Exam Patient acknowledged, consented, and participated in this virtual visit which was conducted using real time audio/video Vital Signs Date Time Temp Pulse Resp B/P (MAP) Pulse Ox O2 Delivery O2 Flow Rate FiO2 07/09/23 08:25 26 98 80.00 07/09/23 08:00 96 32 130/91 (102) 98 NIV Bilevel 80.00 07/09/23 08:00 36.1 07/09/23 07:00 89 30 123/76 (92) 96 NIV Bilevel 80.00 07/09/23 07:00 88 07/09/23 06:27 91 30 133/83 (100) 96 NIV Bilevel 80.00 07/09/23 06:00 91 30 133/83 (100) 96 NIV Bilevel 80.00 07/09/23 05:00 95 31 155/89 (111) 97 NIV Bilevel 80.00 07/09/23 04:00 94 NIV Bilevel 80 07/09/23 04:00 94 30 138/84 (102) 94 NIV Bilevel 80.00 07/09/23 03:05 32 98 80.00 07/09/23 03:00 92 35 140/87 (104) 96 NIV Bilevel 80.00 07/09/23 02:00 89 28 153/87 (109) 96 NIV Bilevel 80.00 07/09/23 01:00 90 07/09/23 01:00 87 22 155/89 (111) 95 NIV Bilevel 80.00 07/09/23 00:25 96 NIV Bilevel 80 07/09/23 00:00 92 26 151/90 (110) 97 NIV Bilevel 80.00 07/08/23 23:00 101 26 156/90 (112) 98 NIV Bilevel 80.00 07/08/23 23:00 101 26 156/90 (112) 98 NIV Bilevel 80.00 07/08/23 22:35 45 98 80.00 07/08/23 22:15 96 30 99 NIV Bilevel 80.00 07/08/23 22:15 92 14 118/62 (80) 99 NIV Bilevel 80.00 07/08/23 21:45 92 14 97 NIV Bilevel 80.00 07/08/23 21:45 92 14 118/62 (80) 99 NIV Bilevel 80.00 07/08/23 21:39 104 96 80 07/08/23 21:15 98 25 98 NIV Bilevel 80.00 07/08/23 21:15 98 17 98 NIV Bilevel 80.00 07/08/23 21:01 32 96 80.00 07/08/23 21:00 101 25 123/83 (96) 98 NIV Bilevel 80.00 07/08/23 21:00 101 25 123/83 (96) 98 NIV Bilevel 80.00 07/08/23 20:51 100 07/08/23 20:45 105 25 92 NIV Bilevel 80.00 07/08/23 20:45 105 25 94 NIV Bilevel 80.00 07/08/23 20:30 105 139/96 (110) 92 High Flow N/C 15.00 07/08/23 20:30 105 139/96 (110) 92 High Flow N/C 15.00 07/08/23 19:25 104 29 129/72 91 OxyMask 15.00 07/08/23 19:08 106 22 96/71 (79) 93 15.00 07/08/23 18:17 98 20 123/61 (81) 91 Nasal Cannula 5.00 07/08/23 17:38 103 20 120/66 (84) 92 Nasal Cannula 5.00 07/08/23 16:25 Room Air 6.00 07/08/23 16:09 37.8 111 22 146/69 (94) 84 Room Air 07/08/23 16:00 92 Nasal Cannula 6.00 I & O 07/09/23 07:00 Intake Total 2700 ml Output Total 700 ml Balance 2000 ml Height & Weight Height: 6'0" Weight: 260lbs. 0.0oz. 117.104989nm; 35.14 BMI Method:Stated General Appearance: No Apparent Distress, Chronically ill, Moderate Distress, Obese Respiratory: Decreased Breath Sounds Cardiovascular: Regular Rate, Rhythm Capillary Refill: Less Than 3 Seconds Gastrointestinal: normal bowel sounds, non tender, soft Extremity: No Pedal Edema Results Lab Laboratory Tests 07/08/23 16:09 07/09/23 04:25 Assessment/Plan Assessment/Plan acute on chronic hypoxic and hypercarbic resp failure, will continue on BiPAP, abx Also Crohn's disease, TASH, HTN Critical Care: Critically Ill Patient Time spent with patient (mins): 25 LILLIAN ANDINO MD Jul 09, 2023 08:34
[2023-07-09] MEDS: fentaNYL INJECTION 100 MCG/2 ML VIAL IVP PRN ×3 (10:45→19:32)
--- NOTE | 2023-07-09 11:54 | History & Physical-Hospitalist ---
History of Present Illness HPI/Chief Complaint 68-year-old male patient presented POV with complaining of shortness of breath and cough. Patient complaining of frequent episode nonproductive cough, shortness of breath, fever up to 102, generalized weakness, posttussive vomiting for the last 1 week. Patient was seen in this emergency room on July 06 and diagnosed with bilateral pneumonia and had treatment with Rocephin in ER and discharged home with Zithromax but he stated his cough is getting worse and his fever was higher than before. Patient stated he checked his oxygen with his apple watch and it was as low as 87%. Patient had O2 sat of 84% on room air with temperature of 37.8 at arrival to ER. Patient complaining of chest soreness during episode of cough and complaining of generalized weakness. Patient stated he had episode of chronic diarrhea because of Crohn's disease and taking Remicade. According to EMR patient had negative lactic acid and COVID and flu, had white count of 16,000. Patient stated he quit smoking 2 weeks ago. Patient had pneumonia and flu and COVID-vaccine recently. On my arrival they had attempted to take the patient off of BiPAP but even on high flow oxygen his level dropped to 80% so he was unable to eat breakfast as it happened rather quickly he appeared to be in no acute distress on BiPAP maintaining saturations in the upper 90s. He reports that his cough is been minimally productive and only whitish sputum. He has been afebrile through the night. He denies chest pain and reports his Crohn's disease has been under good control with no diarrhea or abdominal pain. His last Remicade injection was 2 w eeks ago he gets it on a 6-week interval. Date Seen 07/09/23 Time Seen by a Provider: 07:30 Attending Physician Orville Willard MD PCP Admitting Physician: Conner Garcia MD Attending Physician: Conner Garcia MD Referring Physician Date of Admission Jul 08, 2023 at 20:36 Home Medications & Allergies Home Medications Reviewed patient Home Medication Reconciliation performed by pharmacy medication reconciliations cmm technician and/or nursing. Patients Allergies have been reviewed. Allergies Allergies Coded Allergies morphine (Unverified Allergy, Severe, HEART STOPPED, 11/17/18) hydromorphone HCl (Unverified Allergy, Mild, HIVES, 12/25/19) oxycodone (Unverified Allergy, Mild, HIVES, 12/25/19) infliximab-dyyb (Unverified Adverse Reaction, Severe, ATRIAL FIB, 12/05/18) PT WENT INTO A FIB WHILE RECEIVING INFUSION meperidine HCl (Unverified Adverse Reaction, Mild, N/V, 11/17/18) Past Dadfpll-Qwtnco-Ldpyuj Hx Patient Social History Tobacco Use?: Yes Tobacco type used: Cigarettes Smoking Status: Former Smoker Use of E-Cig and/or Vaping dev: No Substance use?: No Alcohol Use?: No Pt feels they are or have been: No Immunizations Up To Date Date of Influenza Vaccine: Jul 09, 2019 First/Initial COVID19 Vaccinat: 05/25/2021 Second COVID19 Vaccination Darci: 05/25/2021 Tetanus Booster (TDap): Unknown PED Vaccines UTD: Yes Date of Pneumonia Vaccine: Jul 09, 2019 Seasonal Allergies Seasonal Allergies: No Current Status Advance Directives: No Communicates: Verbally Primary Language: [place] Preferred Spoken Language: [place] Is interpretation needed?: No Implanted or Applied Medical D: None Past Medical History Surgeries: Abdominal, Appendectomy, Bowel Surgery, Gallbladder, Tonsillectomy, Vasectomy Sleep Apnea Currently Using CPAP: Yes Currently Using BIPAP: No Atrial Fibrillation, High Cholesterol, Hypertension Sexually Transmitted Disease: No HIV/AIDS: No Benign Prostatic Hyperpl, Kidney Stones Abdominal Hernia, Crohns Disease, Chronic Diarrhea Arthritis Adrenal Disease Loss of Vision: Denies Hearing Impairment: Denies Skin Did You Recieve Any Treatments: Yes What Type of Treatment Did You: Surgical Intervention Depression Blood Disorders: No Adverse Reaction/Blood Tranf: No (N/A) Family Medical History Patient reports no known family medical history. Heart Disease, Diabetes, Other Conditions/Hx Review of Systems Constitutional: see HPI Physical Exam Physical Exam Vital Signs Vital Signs - First Documented 07/08/23 07/08/23 07/08/23 16:00 16:09 21:39 Temp 37.8 Pulse 111 Resp 22 B/P (MAP) 146/69 (94) Pulse Ox 92 O2 Delivery Nasal Cannula O2 Flow Rate 6.00 FiO2 80 Capillary Refill : Less Than 3 Seconds Height, Weight, BMI Height: 6'0" Weight: 260lbs. 0.0oz. 117.019101rc; 35.14 BMI Method:Stated General Appearance: Anxious, Obese Respiratory: No Accessory Muscle Use, Other (. Rhonchi with mild expiratory wheezing) Cardiovascular: Regular Rate, Rhythm, No Edema, No Gallop, No JVD, No Murmur, Normal Peripheral Pulses Extremity: Normal Capillary Refill, Normal Inspection, Normal Range of Motion, Non Tender, No Calf Tenderness, No Pedal Edema Skin: Normal Color, Warm/Dry, Other ( No rashes appreciated.) Results Results/Procedures Labs Laboratory Tests 07/08/23 16:09 07/09/23 04:25 Patient resulted labs reviewed. Assessment/Plan Admission Diagnosis 1. Likely atypical pneumonia with secondary respiratory distress. Considering significant wheezing Solu-Medrol is been initiated with broad-spectrum antibiotic coverage. Will hold azathioprine and the patient qualifies for immunocompromise status we will attempt to induce sputum for pneumocystis. If patient's respiratory status continues to decline will need mechanical intubation currently maintaining saturations on BiPAP without Increased work of breathing at rest. 2. History of Crohn's disease currently appears to be under control on Remicade and azathioprine. Holding azathioprine for now due to #1. Admission Status: Inpatient Order (span 2 midnights) Reason for Inpatient Admission: See admission diagnosis Critical Care Critically Ill Patient CONNER GARCIA MD Jul 09, 2023 11:54
[2023-07-09] MEDS ORDERED: dilTIAZem DRIP PRE-MIX 125 ML IV ONE (21:29)
[2023-07-09] MEDS ORDERED: dilTIAZem INJ 25 MG/5 ML VIAL IVP ONE (21:30)
[2023-07-09] MEDS ORDERED: dilTIAZem IV FOR DRIP 125 MG in NS (IVPB) 100 ML 100 ML IV SCH (21:30)
[2023-07-09] MEDS ORDERED: DIGOXIN INJECTION 0.25 MG/ML 2 ML AMPULE IV ONE (21:30)
[2023-07-09 21:34] LABS: ABG BASE EXCESS -3.8 MMOL/L (-2.5-2.5); ABG OXYGEN SATURATION 92 % (94-100); ABG PCO2 46 MMHG (35-45); ABG PO2 70 MMHG (79-93); ABG TCO2 22.9 MMOL/L (21.0-31.0)
[2023-07-09 21:36] LABS: ABG PH 7.29 (7.37-7.43); ALLENS TEST YES-POS; INSPIRED O2 60%; PATIENT TEMP 37.7; VENTILATOR NO
[2023-07-09] MEDS: ENOXAPARIN 40 MG/0.4 ML SYRINGE SC SCH (21:56)
[2023-07-09] MEDS ORDERED: meTOprolol INJECTION 5 MG/5 ML VIAL ONE (22:14)
[2023-07-09] MEDS ORDERED: meTOprolol INJECTION 5 MG/5 ML VIAL IV ONE (22:15)
--- NOTE | 2023-07-09 22:32 | Diagnostic Imaging Report ---
CLINICAL INDICATION: Patient in ICU with respiratory failure. EXAM: Portable chest x-ray, upright view. COMPARISON: Chest x-ray dated 07/08/2023. FINDINGS: Lungs/pleura: There is interval progression of patchy infiltrates and consolidations involving both lungs. There is some sparing of the left lung apex. There is no pneumothorax. There is no pleural effusion. Mediastinum: Unremarkable. Pulmonary vasculature: Unremarkable. Heart: There is stable cardiomegaly. Bones/extrathoracic soft tissue: Unremarkable. IMPRESSION: 1: There is interval progression of bilateral lung infiltrates. 2: There is stable cardiomegaly with no significant pulmonary vascular congestion. Dictated by: Dictated on workstation # [id number]
--- NOTE | 2023-07-09 23:04 | Tele-ICU Progress Note ---
Subjective Date Seen by a Provider: Jul 09, 2023 Time Seen by a Provider: 23:04 Subjective/Events-last exam (Tele-ICU Physician , Progress Note ) Service provided via interactive audio and video [employer] [facility] s ystem to a patient admitted to ICU bed in [facility]. Patient is seen today due to persistent need of ICU care Available chart/ vitals / labs / Images reviewed Video assessment done using teleICU camera, rest of exam as per RN This evening patient developed acute respiratory distress with respiratory rate of 10-00-zaaplf and atrial fibrillation with rapid ventricular rate in the range of 170-190/min. Arterial blood gas done but did not show significant change. In view of his increased work of breathing and atrial fibrillation with rapid ventricular rate we have decided to intubate the patient and subsequently intubated. I have ordered IV digoxin and IV diltiazem drip. Subsequently cardiology consulted. Primary care notified. Patient also febrile for which she is given Tylenol and continue to the IV antibiotics. Impression 1. Acute and chronic respiratory failure 2. Atrial fibrillation with rapid ventricular rate 3. Bilateral pneumonia 4. Sepsis syndrome Recommendations 1. Patient intubated this night. We will continue mechanical ventilatory s upport 2. Continue IV antibiotic therapy 3. IV digoxin and diltiazem drip. 4. DVT prophylaxis and ulcer prophylaxis 5. We will get an echocardiogram in a.m. Coordination of care with primary care physician and bedside consultants. I am remotely monitoring this patient from Tele icu station in [place]. I am unable to do the bedside exam, and history/physical and pertinent information is taken from other notes in the computer and bedside staff. Certain portions of this document may have been dictated utilizing voice recognition technology such as [employer]. Inherent to this technology, t ypographical and grammatical errors may exist. As much as I am diligent to identify and correct to these mistakes, some errors may remain in the document. Critical care time devoted to this patient today is approximately is-40 minutes.- Sepsis Event Evaluation Height, Weight, BMI Height: 6'0" Weight: 260lbs. 0.0oz. 117.632935ff; 35.14 BMI Method:Stated Focused Exam Lactate Level 07/08/23 16:09: Lactic Acid Level 4.10*H 07/08/23 18:09: Lactic Acid Level 1.94 07/09/23 21:31: Lactic Acid Level 1.85 Lactic Acid Level Laboratory Tests Test 07/09/23 21:31 Lactic Acid Level 1.85 MMOL/L (0.50-2.00) Exam Exam Patient acknowledged, consented, and participated in this virtual visit which was conducted using real time audio/video Vital Signs Date Time Temp Pulse Resp B/P (MAP) Pulse Ox O2 Delivery O2 Flow Rate FiO2 07/09/23 21:55 181 31 98 100.00 07/09/23 21:42 192 112/92 07/09/23 21:39 197 112/92 07/09/23 18:56 28 99 60.00 07/09/23 18:28 NIV Bilevel 60.00 07/09/23 18:00 124 9 96 Vapotherm 30.00 90.00 07/09/23 17:42 Vapotherm 30.00 90.00 07/09/23 17:00 114 12 132/82 (110) 92 NIV Bilevel 60.00 07/09/23 16:00 37.0 07/09/23 16:00 116 23 177/99 (130) 92 NIV Bilevel 60.00 07/09/23 16:00 97 NIV Bilevel 60 07/09/23 15:00 122 33 135/73 (94) 93 NIV Bilevel 60.00 07/09/23 14:37 33 96 60.00 07/09/23 14:00 108 38 144/97 (110) 93 NIV Bilevel 70.00 07/09/23 13:00 104 141/91 (110) 96 NIV Bilevel 70.00 07/09/23 12:35 113 07/09/23 12:00 111 21 144/89 (116) 95 NIV Bilevel 70.00 07/09/23 12:00 36.5 07/09/23 12:00 97 NIV Bilevel 70 07/09/23 11:00 112 30 138/80 (101) 92 NIV Bilevel 70.00 07/09/23 10:46 NIV Bilevel 70.00 07/09/23 10:42 23 96 70.00 07/09/23 10:00 105 33 136/78 (100) 95 NIV Bilevel 80.00 07/09/23 09:00 109 16 121/82 (97) 97 NIV Bilevel 80.00 07/09/23 08:25 26 98 80.00 07/09/23 08:00 97 NIV Bilevel 80 07/09/23 08:00 96 32 130/91 (102) 98 NIV Bilevel 80.00 07/09/23 08:00 36.1 07/09/23 07:00 89 30 123/76 (92) 96 NIV Bilevel 80.00 07/09/23 07:00 88 07/09/23 06:27 91 30 133/83 (100) 96 NIV Bilevel 80.00 07/09/23 06:00 91 30 133/83 (100) 96 NIV Bilevel 80.00 07/09/23 05:00 95 31 155/89 (111) 97 NIV Bilevel 80.00 07/09/23 04:00 94 NIV Bilevel 80 07/09/23 04:00 94 30 138/84 (102) 94 NIV Bilevel 80.00 07/09/23 03:05 32 98 80.00 07/09/23 03:00 92 35 140/87 (104) 96 NIV Bilevel 80.00 07/09/23 02:00 89 28 153/87 (109) 96 NIV Bilevel 80.00 07/09/23 01:00 90 07/09/23 01:00 87 22 155/89 (111) 95 NIV Bilevel 80.00 07/09/23 00:25 96 NIV Bilevel 80 07/09/23 00:00 92 26 151/90 (110) 97 NIV Bilevel 80.00 07/08/23 23:00 101 26 156/90 (112) 98 NIV Bilevel 80.00 07/08/23 23:00 101 26 156/90 (112) 98 NIV Bilevel 80.00 I & O 07/09/23 07:00 Intake Total 2700 ml Output Total 700 ml Balance 2000 ml Height & Weight Height: 6'0" Weight: 260lbs. 0.0oz. 117.041895kz; 35.14 BMI Method:Stated General Appearance: Anxious, Obese Respiratory: No Accessory Muscle Use, Other (. Rhonchi with mild expiratory wheezing) Cardiovascular: Regular Rate, Rhythm, No Edema, No Gallop, No JVD, No Murmur, Normal Peripheral Pulses Capillary Refill: Less Than 3 Seconds Gastrointestinal: normal bowel sounds, non tender, soft Extremity: Normal Capillary Refill, Normal Inspection, Normal Range of Motion, Non Tender, No Calf Tenderness, No Pedal Edema Skin: Normal Color, Warm/Dry, Other ( No rashes appreciated.) Results Lab Laboratory Tests 07/08/23 16:09 07/09/23 04:25 Assessment/Plan Assessment/Plan as above Critical Care: Ventilator Management Time spent with patient (mins): 40 JEWEL MCDONOUGH MD Jul 09, 2023 23:04
[2023-07-09] MEDS ORDERED: AMIODARONE (Pyxis Kit Only) DRIP 450 MG/9 ML VIAL IV ONE (23:14)
[2023-07-09] MEDS ORDERED: AMIODARONE (Pyxis Kit Only) BOLUS 150 MG/3 ML IV ONE (23:14)
[2023-07-09] MEDS ORDERED: NORMAL SALINE (EXCEL) 250 ML 250 ML ONE (23:15)
[2023-07-09] MEDS ORDERED: AMIODARONE FOR BOLUS 150 MG in NS (IVPB) 100 ML 100 ML IV ONE (23:15)
[2023-07-09] MEDS ORDERED: NS (IVPB) 100 ML 100 ML ONE (23:15)
--- NOTE | 2023-07-09 23:35 | Procedure/Intervention Note ---
Procedure Note Vital Signs Vital Signs Date Time Temp Pulse Resp B/P (MAP) Pulse Ox O2 Delivery O2 Flow Rate FiO2 07/10/23 02:31 161 18 100 80 07/10/23 01:33 138/97 07/10/23 00:00 Mechanical Ventilator 100.00 07/09/23 16:00 37.0 Procedure Note Emergent Intubation Indication: Demonstrated respiratory distress on BiPAP, increased respiratory rate between 30-40s per minute, along with a rhythm change into atrial fibri llation with RVR that was unresponsive to medications. Dr. Finley was consulted and recommended intubation to decrease stress to the heart. Consent: Verbal consent given by patient. Risks and benefits explained to patient and he voiced understanding. Procedure: Dr. Mendez and myself proceeded with intubation measures. Pt was sedated with 20mg etomidate, 200mg succinylcholine, fasciculations were visualized after succinylcholinne was given. BiAPAP was removed and bag-valve mask placed. A glidescope was used to place a 7.5 mm ET tube to 25cm at the teeth. Equal and bilateral breath sounds were heard with no epigastric sounds. End-tidal CO2 monitor showed positive colour change. Confirmed with CXR. Gave additional 50mcg fentanyl and 5mg Versed for additional sedation. I was personally present throughout the procedure as noted above. Patient in respiratory distress and atrial fibrillation and on BiPAP with increasing respiratory difficulty requiring intubation. This was discussed with the johnna jarrett who agreed. I agree with the procedure note above. Patient intubated x1 attempt via glide scope after RSI with etomidate and succinylcholine as noted above. I did visualize ET tube through cords on glide scope during resident procedure. I did verify bilateral lung sounds and absence of sounds at epigastrium. Patient did have improved O2 saturations. Patient placed on vent at rate of 16 with tidal volume 450 and PEEP of 5 with FiO2 to be titrated by RT to keep sats greater than 92%. Postintubation sedation with propofol. Patient tolerated procedure well with no complications. Chest x-ray reviewed by me and tip at right mainstem and backed off 1 cm per my direction. OG tube in good position. Patient does have bilateral pulmonary edema that has worsened from earlier on my interpretation. ABIDA HERRERA MD,RESIDENT Jul 09, 2023 23:35 GI MENDEZ MD Jul 10, 2023 03:58
[2023-07-09] MEDS: AMIODARONE FOR DRIP 450 MG in NORMAL SALINE (EXCEL) 250 ML 250 ML IV SCH (23:48)
[2023-07-10] MEDS ORDERED: meTOprolol INJECTION 5 MG/5 ML VIAL IV SCH
[2023-07-10] MEDS: methylPREDNISolone INJ 125 MG VIAL IV SCH ×2 (01:10→08:51)
[2023-07-10] MEDS: VANCOMYCIN 1250MG/250ML PREMIX 250 ML IV SCH (01:10)
[2023-07-10] MEDS ORDERED: DIGOXIN INJECTION 0.25 MG/ML 2 ML AMPULE IV STA ×2 (02:05→06:48)
[2023-07-10 02:31] VITALS: BP 129/85
[2023-07-10] MEDS: RT-Ipratropium/Albuterol NEB 3 ML VIAL INH SCH (02:42)
[2023-07-10] MEDS: PIPERACILLIN/Tazobactam 4.5 GM in NS (IVPB) 100 ML 100 ML IV SCH ×2 (02:49→08:51)
[2023-07-10 04:39] LABS: ABG BASE EXCESS -5.1 MMOL/L (-2.5-2.5); ABG OXYGEN SATURATION 99 % (94-100); ABG PCO2 47 MMHG (35-45); ABG PO2 109 MMHG (79-93); ABG TCO2 22.4 MMOL/L (21.0-31.0)
[2023-07-10 04:55] LABS: ALLENS TEST YES-POS; INSPIRED O2 80%; PATIENT TEMP 35.9; VENTILATOR YES
[2023-07-10 05:00] LABS: ABG PH 7.27 (7.37-7.43)
[2023-07-10 05:12] LABS: BASOPHILS % (AUTO) 0 % (0-10); EOSINOPHILS % (AUTO) 0 % (0-10); HEMATOCRIT 37 % (40-54); HEMOGLOBIN 11.1 g/dL (13.3-17.7); LYMPHOCYTES # (AUTO) 0.7 10^3/uL (1.0-4.0); LYMPHOCYTES % (AUTO) 3 % (12-44); MEAN CORPUSCULAR HEMOGLOBIN 27 pg (25-34); MEAN CORPUSCULAR HGB CONC 30 g/dL (32-36); MEAN CORPUSCULAR VOLUME 92 fL (80-99); MEAN PLATELET VOLUME 11.4 fL (9.0-12.2); MONOCYTES # (AUTO) 1.2 10^3/uL (0.0-1.0); MONOCYTES % (AUTO) 5 % (0-12); NEUTROPHILS # (AUTO) 21.2 10^3/uL (1.8-7.8); NEUTROPHILS % (AUTO) 91 % (42-75); PLATELET COUNT 152 10^3/uL (130-400); WHITE BLOOD COUNT 23.3 10^3/uL (4.3-11.0)
[2023-07-10 05:21] LABS: ALBUMIN 2.9 GM/DL (3.2-4.5)
[2023-07-10 05:22] LABS: POTASSIUM 4.6 MMOL/L (3.6-5.0)
[2023-07-10 05:23] LABS: CALCIUM 8.4 MG/DL (8.5-10.1)
[2023-07-10 05:24] LABS: TOTAL PROTEIN 7.1 GM/DL (6.4-8.2)
[2023-07-10 05:26] LABS: BILIRUBIN,TOTAL 0.6 MG/DL (0.1-1.0)
[2023-07-10 05:27] LABS: PHOSPHORUS 2.5 MG/DL (2.3-4.7)
[2023-07-10 05:28] LABS: CREATININE SERUM 0.98 MG/DL (0.60-1.30)
[2023-07-10 05:31] LABS: MAGNESIUM 2.2 MG/DL (1.6-2.4)
[2023-07-10] MEDS ORDERED: TROUGH ORDER-PHARMACY XX NR (06:00)
[2023-07-10 06:22] VITALS: BP 122/87
[2023-07-10] MEDS ORDERED: NORMAL SALINE (EXCEL) 250 ML 250 ML ONE (06:34)
[2023-07-10] MEDS ORDERED: AMIODARONE (Pyxis Kit Only) DRIP 450 MG/9 ML VIAL IV ONE (06:35)
[2023-07-10] MEDS: AMIODARONE FOR DRIP 450 MG in NORMAL SALINE (EXCEL) 250 ML 250 ML IV SCH (06:37)
[2023-07-10] MEDS ORDERED: DIGOXIN INJECTION 0.25 MG/ML 2 ML AMPULE ONE (06:50)
[2023-07-10] MEDS ORDERED: dilTIAZem DRIP PRE-MIX 125 ML IV ONE (07:14)
--- NOTE | 2023-07-10 08:04 | Diagnostic Imaging Report ---
EXAMINATION: Chest 1 view HISTORY: Intubation COMPARISON: 07/09/2023 FINDINGS: Heart size and pulmonary vasculature are normal. There are patchy airspace opacities throughout the lungs that are stable or slightly increased from prior exam. No significant pleural effusion or pneumothorax. An endotracheal tube is present 3.6 cm above the jayleen. An enteric catheter courses below the diaphragm. Degenerative changes of the thoracic spine. Osseous structures are otherwise intact. IMPRESSION: 1. Endotracheal tube placement 3.6 cm above the jayleen. 2. Slightly increased patchy airspace opacities throughout both lungs. Dictated by: Dictated on workstation # [id number]
--- NOTE | 2023-07-10 08:24 | Tele-ICU Progress Note ---
Subjective Date Seen by a Provider: Jul 10, 2023 Time Seen by a Provider: 08:18 Subjective/Events-last exam (Tele-ICU Physician , Progress Note ) Service provided via interactive audio and video telecommunications [facility] to a patient admitted to ICU bed in [facility]. Patient is seen today due to persistent need of ICU care Available chart/ vitals / labs / Images reviewed Video assessment done using teleICU camera, rest of exam as per RN Last night developed increased WOB, a fib with RVR and was electively intubated, now on AC 20, Vt 500 FiO2 80%, PEEP 10, ABG 7.27/47/109 For a fib on IV amiodarone, IV Cardizem @ [place] [address] On IV Propofol @ 50 RASS -3, has 7.5 ET Sedated, not much secretions, CXR this am shows diffuse bilateral infiltrates, CCL 2y ago did not show CAD, LVEF was 65% Hx of Crohn's disease and has been on Remicade Not much secretions Sepsis Event Evaluation Height, Weight, BMI Height: 6'0" Weight: 260lbs. 0.0oz. 117.716727in; 35.17 BMI Method:Stated Focused Exam Lactate Level 07/08/23 16:09: Lactic Acid Level 4.10*H 07/08/23 18:09: Lactic Acid Level 1.94 07/09/23 21:31: Lactic Acid Level 1.85 Exam Exam Patient acknowledged, consented, and participated in this virtual visit which was conducted using real time audio/video Vital Signs Date Time Temp Pulse Resp B/P (MAP) Pulse Ox O2 Delivery O2 Flow Rate FiO2 07/10/23 08:09 156 123/95 07/10/23 08:00 156 123/95 (100) 100 Mechanical Ventilator 100.00 07/10/23 07:23 151 122/87 07/10/23 07:20 151 122/87 07/10/23 07:00 132 07/10/23 07:00 140 8 134/89 (100) 100 Mechanical Ventilator 100.00 07/10/23 06:22 151 21 100 80 07/10/23 06:00 160 11 125/90 (102) 100 Mechanical Ventilator 100.00 07/10/23 05:33 141 07/10/23 05:00 160 21 123/91 (102) 100 Mechanical Ventilator 100.00 07/10/23 04:00 96 Mechanical Ventilator 100 07/10/23 04:00 154 21 113/84 (94) 100 Mechanical Ventilator 100.00 07/10/23 04:00 149 123/84 07/10/23 03:49 137 123/84 07/10/23 03:00 126 14 106/91 (96) 100 Mechanical Ventilator 100.00 07/10/23 02:31 161 18 100 80 07/10/23 02:00 154 18 123/86 (98) 100 Mechanical Ventilator 100.00 07/10/23 01:33 152 138/97 07/10/23 01:00 150 07/10/23 01:00 152 18 139/90 (106) 100 Mechanical Ventilator 100.00 07/10/23 00:00 154 22 118/88 (98) 100 Mechanical Ventilator 100.00 07/09/23 23:49 160 117/93 07/09/23 23:47 174 117/93 07/09/23 23:28 100 07/09/23 23:00 192 22 132/89 (103) 100 Mechanical Ventilator 100.00 07/09/23 23:00 96 Mechanical Ventilator 100 07/09/23 22:58 176 23 100 100 07/09/23 22:39 Mechanical Ventilator 100.00 07/09/23 22:00 181 28 107/70 (82) 99 NIV Bilevel 100.00 07/09/23 21:55 181 31 98 100.00 07/09/23 21:42 192 112/92 07/09/23 21:39 197 112/92 07/09/23 21:00 115 20 109/63 (78) 97 NIV Bilevel 100.00 07/09/23 20:00 118 15 149/137 (141) 100 NIV Bilevel 60.00 07/09/23 20:00 97 NIV Bilevel 60 07/09/23 19:00 117 07/09/23 19:00 120 19 145/80 (101) 97 NIV Bilevel 60.00 07/09/23 18:56 28 99 60.00 07/09/23 18:28 NIV Bilevel 60.00 07/09/23 18:00 124 9 96 Vapotherm 30.00 90.00 07/09/23 17:42 Vapotherm 30.00 90.00 07/09/23 17:00 114 12 132/82 (110) 92 NIV Bilevel 60.00 07/09/23 16:00 37.0 07/09/23 16:00 116 23 177/99 (130) 92 NIV Bilevel 60.00 07/09/23 16:00 97 NIV Bilevel 60 07/09/23 15:00 122 33 135/73 (94) 93 NIV Bilevel 60.00 07/09/23 14:37 33 96 60.00 07/09/23 14:00 108 38 144/97 (110) 93 NIV Bilevel 70.00 07/09/23 13:00 104 141/91 (110) 96 NIV Bilevel 70.00 07/09/23 12:35 113 07/09/23 12:00 111 21 144/89 (116) 95 NIV Bilevel 70.00 07/09/23 12:00 36.5 07/09/23 12:00 97 NIV Bilevel 70 07/09/23 11:00 112 30 138/80 (101) 92 NIV Bilevel 70.00 07/09/23 10:46 NIV Bilevel 70.00 07/09/23 10:42 23 96 70.00 07/09/23 10:00 105 33 136/78 (100) 95 NIV Bilevel 80.00 07/09/23 09:00 109 16 121/82 (97) 97 NIV Bilevel 80.00 07/09/23 08:25 26 98 80.00 I & O 07/10/23 07:00 Intake Total 3093 ml Output Total 1000 ml Balance 2093 ml Height & Weight Height: 6'0" Weight: 260lbs. 0.0oz. 117.335570up; 35.17 BMI Method:Stated General Appearance: Anxious, Obese Respiratory: No Accessory Muscle Use, Decreased Breath Sounds, Other (. Rhonchi with mild expiratory wheezing) Cardiovascular: Regular Rate, Rhythm, No Edema, No Gallop, No JVD, No Murmur, Normal Peripheral Pulses, Irregularly Irregular, Tachycardia Capillary Refill: Less Than 3 Seconds Gastrointestinal: normal bowel sounds, non tender, soft Extremity: Normal Capillary Refill, Normal Inspection, Normal Range of Motion, Non Tender, No Calf Tenderness, No Pedal Edema Skin: Normal Color, Warm/Dry, Other ( No rashes appreciated.) Results Lab Laboratory Tests 07/08/23 16:09 10/7/23 04:25 07/10/23 04:23 Assessment/Plan Assessment/Plan Acute resp failure probably a combination of CHF, PNA, will continue IV Zosyn, will try to control rate with PRN IV metoprolol IV Metoprolol 5 mg and rate went down into 120's, BP 113/88 Keep on full vent support, not read for SBT Given previous use of anti TNF meds, may need bronch with BAL or at least sputum culture for fungus and TB I think if above is to be done should be transferred to tertiary care medical center. Critical Care: Ventilator Management Time spent with patient (mins): 35 LILLIAN ANDINO MD Jul 10, 2023 08:24
--- NOTE | 2023-07-10 08:30 | Diagnostic Imaging Report ---
EXAMINATION: Chest 1 view HISTORY: Tube placement COMPARISON: 07/09/2023 FINDINGS: Heart size and pulmonary vasculature are stable. Demonstrated patchy airspace opacities seen throughout both lungs, unchanged from prior exam. No new pleural effusion or pneumothorax. Endotracheal tube and enteric catheter are unchanged. Degenerative changes of the thoracic spine. Osseous structures are otherwise intact. IMPRESSION: 1. Stable medical support lines and tubes. 2. Stable patchy airspace opacities throughout both lungs. Dictated by: Dictated on workstation # [id number]
[2023-07-10] MEDS ORDERED: meTOprolol INJECTION 5 MG/5 ML VIAL IV ONE (08:45)
[2023-07-10] MEDS ORDERED: PANTOPRAZOLE INJECTION 40 MG VIAL IV SCH (09:00)
[2023-07-10] MEDS ORDERED: LIDOCAINE 1% INJ 20 ML VIAL ONE (09:49)
[2023-07-10] MEDS: NS IV 1000 ML 1,000 ML IV SCH (10:51)
[2023-07-10 11:08] VITALS: BP 105/84
--- NOTE | 2023-07-10 11:18 | CONSULTATION REPORT ---
DATE OF SERVICE: 07/10/2023 ATTENDING PRIMARY CARE PHYSICIAN: Orville Willard MD ADMITTING PHYSICIAN: Conner Sharma MD HISTORY OF PRESENT ILLNESS: The patient is a 68-year-old male who presented to the Emergency Department with cough and shortness of breath. He reported a cough that was nonproductive; however, he did develop a fever and over time developed generalized weakness and increasing shortness of breath. The patient did have a history of bilateral pneumonia and treated on 07/06/2023. He was given Rocephin and placed on oral antibiotics. Upon this presentation, patient was found to be hypoxic with a saturation of 84%. The patient does have a history of Crohn's disease and is on Remicade for this. The patient's respiratory status worsened and he was intubated. He also does have a history of chronic obstructive pulmonary disease and a history of smoking. PAST MEDICAL HISTORY: Hypertension, hypercholesterolemia, atrial fibrillation, benign prostatic hypertrophy, history of nephrolithiasis, history of Crohn's disease, adrenal insufficiency, sleep apnea. PAST SURGICAL HISTORY: Abdominal hernia repair, small bowel resection, cystoscopy and stone retrieval, testicular mass excision. ALLERGIES: Morphine, hydromorphone, oxycodone, infliximab, meperidine. MEDICATIONS: Augmentin 875 mg daily, aripiprazole 10 mg daily, azathioprine 150 mg daily, cholestyramine 4 grams b.i.d. p.r.n., diphenoxylate 2 tabs p.o. t.i.d., doxazosin 1 mg daily, fish oil daily, folic acid daily, metoprolol 200 mg b.i.d., montelukast 10 mg daily, Protonix 40 mg daily, paroxetine 30 mg daily, Pyridium 200 mg t.i.d., potassium 10 mEq daily, simvastatin 10 mEq daily, tadalafil 5 mg p.r.n., tamsulosin 0.4 mg daily, tramadol p.r.n. SOCIAL HISTORY: Longstanding history of smoking, states he quit approximately 2 weeks ago greater than 40 pack years, negative alcohol. FAMILY HISTORY: Noncontributory. VITAL SIGNS: Temperature 35.8, blood pressure 109/77, pulse 134, respirations 24, on mechanical ventilation on assist control at 50% FiO2. REVIEW OF SYSTEMS: Well-nourished male on a vent and sedated. He does respond slightly to painful stimuli. He does not respond to voice. Previous history of exacerbation, COPD, bilateral pneumonia with worsening shortness of breath requiring intubation. Atrial fibrillation with a rapid ventricular response. History of diarrhea. No known red blood per rectum, no dark tarry stools. He was having some fevers at home. No recent inadvertent weight loss. All other review of systems negative. PHYSICAL EXAMINATION: CHEST: Coarse breath sounds and scattered wheezes bilaterally. HEART: Regular. No murmurs. EXTREMITIES: Plus 1/3 bilateral lower extremity edema. Negative Homans sign. HEENT: No scleral icterus. No cervical lymphadenopathy. ABDOMEN: Soft, nontender, nondistended. SKIN: Warm, dry. LABORATORY DATA: WBC 23.3, hemoglobin 11.1, hematocrit 37, platelets 152, BUN 21, creatinine 0.98. ASSESSMENT AND PLAN: A 68-year-old male with an exacerbation of COPD, respiratory failure requiring mechanical ventilation as well as atrial fibrillation and rapid ventricular response. He is intubated and sedated and possibly contemplating transfer due to the complexity of his case and immunosuppression and on Remicade due to his Crohn's disease. He will require a central venous catheter for possible cardiac medications as well as crutches and we will proceed with placement of a central venous catheter. Job ID: [id number] DocumentID: [id number] Dictated Date: 07/10/2023 10:27:46 Retail Department Manager Date: 07/10/2023 11:16:00 Dictated By: KERA HALEY MD
[2023-07-10] MEDS ORDERED: SUCCINYLCHOLINE INJ 20 MG/1 ML 10 ML VIAL INJ ONE (11:20)
[2023-07-10] MEDS ORDERED: ETOMIDATE INJ SOLN 20 MG/10 ML VIAL IV ONE (11:20)
[2023-07-10] MEDS ORDERED: fentaNYL INJECTION 100 MCG/2 ML VIAL IV ONE (11:20)
[2023-07-10] MEDS ORDERED: MIDAZOLAM INJ 5 MG/5 ML VIAL INJ ONE (11:20)
--- NOTE | 2023-07-10 11:47 | Diagnostic Imaging Report ---
EXAMINATION: Chest 1 view HISTORY: Central line placement COMPARISON: 07/10/2023 FINDINGS: Heart size and pulmonary vasculature are stable. Persistent patchy interstitial and airspace opacities throughout the lungs. Interval placement of a left sided central line with the tip projecting over the distal SVC. No pneumothorax. The osseous structures are intact. IMPRESSION: 1. Left-sided central line placement with the tip projecting over the distal SVC. No pneumothorax. 2. Otherwise stable appearance of the lungs. Dictated by: Dictated on workstation # [id number]
[2023-07-10 12:19] VITALS: BP 117/66
--- NOTE | 2023-07-10 12:36 | Consultation-Cardiology ---
HPI-Cardiology Cardiology Consultation: Date of Consultation 07/10/23 Time Seen by a Provider: 12:00 Date of Admission 07-08-23 Attending Physician Orville Willard MD Admitting Physician Admitting Physician: Conner Sharma MD Attending Physician: Conner Sharma MD Consulting Physician ALEX BAHENA MD, MA, FACP, FACC, [facility], CCDS Physician requesting consult: Dr Sharma HPI: Chief Complaint: Reason for Card consult: Sudden onset of A Fib (with RVR) History obtained from Dr Sharma and Mrs. Woo. Pt. intubated and sedated at the time of this admission. 68 yo man with increasing cough and shortness of breath for several days. Gen malaise had also been worsening. Admitted to this hospital and then transferred to ICU last evening for increasing resp distress. He had been in sinus rhythm. The ICU nurse taking care of him yesterday saw him go into A Fib with a rapid ventricular response around 8 pm. He had not been complaining of chest pain but resp distress had been worsening. He was intubated and put on mech vent. iv diltiazem infusion had been started prior to intubation by the ICU service and iv dig had also been given. iv amiodarone was initiated after intubation (close to midnight). Today around noon he had converted to sinus and maintaining sinus at the time of my exam. Resp status, however, has continued to worsen and chest radiology is showing lung white-out, bilateral, according to his hospitalist attending Dr Sharma. Dr Sharma has spoken with the [facility] and transfer is being arranged for higher level care (python java developer, shactor helper, ID specialist, stave inspector) at [facility]. Review of Systems-Cardiology Review of Systems Constitutional: other (ROS cannot be obtained from the patient. To the extent it coud be obtained from other sources is described above) All Other Systems Reviewed Negative Unless Noted: Yes FDQ-Edtjhs-Lhsihr Hx Patient Social History Smoking Status: Former Smoker 2nd Hand Smoke Exposure: Yes Alcohol Use?: No Pt feels they are or have been: No Tobacco type used: Cigarettes Immunizations Up To Date Date of Pneumonia Vaccine: Jul 09, 2019 Date of Influenza Vaccine: Jul 09, 2019 Past Medical History PMH As described under Assessment. Family Medical History Family Medical History: Pt has previously not reported any fam h/o early CAD or SCD Family History: Patient reports no known family medical history. Allergies and Home Medications Allergies Coded Allergies: morphine (Unverified Allergy, Severe, HEART STOPPED, 11/17/18) hydromorphone HCl (Unverified Allergy, Mild, HIVES, 12/25/19) oxycodone (Unverified Allergy, Mild, HIVES, 12/25/19) infliximab-dyyb (Unverified Adverse Reaction, Severe, ATRIAL FIB, 12/05/18) PT WENT INTO A FIB WHILE RECEIVING INFUSION meperidine HCl (Unverified Adverse Reaction, Mild, N/V, 11/17/18) Patient Home Medication List Home Medication List Reviewed: Yes Amoxicillin/Potassium Clav (Amox Tr-K Clv 875-125 mg Tab) 875 Mg-125 Mg Tablet, 1 EACH PO BID Prescribed by: ELENA GARCIA MD on 07/06/22 1643 Aripiprazole (Aripiprazole) 10 Mg Tablet, 10 MG PO DAILY, (Reported) Entered as Reported by: TOBY RIBERA on 12/25/19 1145 Azathioprine (Azathioprine) 50 Mg Tablet, 150 MG PO DAILY, (Reported) Entered as Reported by: ZHENG EAGLE on 11/17/18 1021 Azathioprine (Azasan) 100 Mg Tablet, 250 MG PO DAILY, (Reported) Entered as Reported by: TOBY RIBERA on 12/25/19 1145 Azithromycin (Azithromycin) 500 Mg Tablet, 500 MG PO DAILY Prescribed by: WATSON ALBERTO on 05/29/21 0906 Azithromycin (Azithromycin) 250 Mg Tablet, 250 MG PO DAILY Prescribed by: WATSON ALBERTO on 07/06/23 1508 Cholestyramine (Cholestyramine Resin) 5 Gm Powder, 4 GM PO BID PRN for DIARRHEA, (Reported) Entered as Reported by: VALORIE HEREDIA on 01/30/19 1237 Cyanocobalamin (Cyanocobalamin Injection) 1,000 Mcg/Ml Inj, 1,000 MCG IM MONTHLY, (Reported) Entered as Reported by: ZHENG EAGLE on 11/17/18 1021 Diphenoxylate HCl/Atropine (Lomotil 2.5-0.025 mg Tablet) 1 Each Tablet, 2 TAB PO TID, (Reported) Entered as Reported by: ZHENG EAGLE on 11/17/18 1035 Doxazosin Mesylate (Doxazosin Mesylate) 1 Mg Tablet, 1 MG PO HS, (Reported) Entered as Reported by: VALORIE HEREDIA on 01/30/19 1237 Ergocalciferol (Vitamin D2) (Vitamin D2) 2,000 Unit Tablet, 50,000 UNIT PO Mo, (Reported) Entered as Reported by: TOBY RIBERA on 12/25/19 1145 Fish Oil/Dha/Epa (Fish Oil 1,200 mg Fish Oil) 1 Each Capsule, 1,200 MG PO DAILY, (Reported) Entered as Reported by: ZHENG EAGLE on 11/17/18 1021 Folic Acid (Folic Acid) 0.4 Mg Tablet, 0.4 MG PO DAILY, (Reported) Entered as Reported by: ZHENG EAGLE on 11/17/18 1021 Guaifenesin (Mucinex) 1,200 Mg Tab.er.12h, 1,200 MG PO Q12H Prescribed by: WATSON ALBERTO on 07/06/23 1508 Infliximab (Remicade) 100 Mg Soln, 10 MG IV Q6 WEEKS, (Reported) Entered as Reported by: VALORIE HEREDIA on 01/30/19 1237 L.acidoph & Paracasei,B.lactis (Probiotic) 1 Each Capsule, 1 CAP PO DAILY, (Reported) Entered as Reported by: ZHENG EAGLE on 11/17/18 1021 Loperamide HCl (Loperamide) 2 Mg Tablet, 2 MG PO TID PRN for DIARRHEA, (Reported) Entered as Reported by: VALORIE HEREDIA on 01/30/19 1237 Magnesium Oxide (Magnesium Oxide) 400 Mg Tablet, 400 MG PO BID, (Reported) Entered as Reported by: VALORIE HEREDIA on 01/30/19 1237 Metoprolol Succinate (Metoprolol Succinate) 200 Mg Tab.er.24h, 200 MG PO BID, (Reported) Entered as Reported by: TOBY RIBERA on 12/25/19 1145 Montelukast Sodium (Montelukast Sodium) 10 Mg Tablet, 10 MG PO HS, (Reported) Entered as Reported by: ZHENG EAGLE on 11/17/18 1021 Multivitamin (Multiple Vitamins) 1 Each Tablet, 1 TAB PO DAILY, (Reported) Entered as Reported by: ZHENG EAGLE on 11/17/18 1035 Pantoprazole Sodium (Pantoprazole Sodium) 40 Mg Tablet.dr, 40 MG PO DAILY, (Reported) Entered as Reported by: ZHENG EAGLE on 11/17/18 1021 Paroxetine HCl (Paroxetine HCl) 30 Mg Tablet, 30 MG PO DAILY, (Reported) Entered as Reported by: TOBY RIBERA on 12/25/19 1145 Phenazopyridine HCl (Pyridium) 200 Mg Tablet, 1 TAB PO TID Prescribed by: ELIZABETH BARROSO on 12/26/19 1109 Potassium Citrate (Potassium Citrate ER) 10 Meq Tablet.er, 10 MEQ PO TID, (Reported) Entered as Reported by: CARLOS PAUL on 04/03/19 1400 Simvastatin (Simvastatin) 10 Mg Tablet, 10 MG PO DAILY, (Reported) Entered as Reported by: ZHENG EAGLE on 11/17/18 1021 Sulfamethoxazole/Trimethoprim (Bactrim Ds Tablet) 1 Each Tablet, 1 EACH PO BID Prescribed by: ELIZABETH BARROSO on 12/26/19 1129 Tadalafil (Cialis) 5 Mg Tablet, 5 MG PO PRN, (Reported) Entered as Reported by: VALORIE HEREDIA on 01/30/19 1237 Tamsulosin HCl (Flomax) 0.4 Mg Cap, 0.4 MG PO HS, (Reported) Entered as Reported by: CARLOS PAUL on 04/03/19 1400 Tamsulosin HCl (Flomax) 0.4 Mg Cap, 0.4 MG PO DAILY Prescribed by: ELIZABETH BARROSO on 12/26/19 1109 Tramadol HCl (Tramadol HCl) 50 Mg Tablet, 1-2 TAB PO Q4H PRN for PAIN-MODERATE (5-7) Prescribed by: ELIZABETH BARROSO on 12/26/19 1109 Physical Exam-Cardiology Physical Exam Vital Signs/I&O 07/10/23 07/10/23 07/10/23 07/10/23 01:00 01:00 01:33 02:00 Pulse 152 150 152 154 Resp 18 18 B/P (MAP) 139/90 (106) 138/97 123/86 (98) Pulse Ox 100 100 O2 Delivery Mechanical Ventilator Mechanical Ventilator O2 Flow Rate 100.00 100.00 07/10/23 07/10/23 07/10/23 07/10/23 02:31 03:00 03:49 04:00 Pulse 161 126 137 149 Resp 18 14 B/P (MAP) 106/91 (96) 123/84 123/84 Pulse Ox 100 100 O2 Delivery Mechanical Ventilator O2 Flow Rate 100.00 FiO2 80 07/10/23 07/10/23 07/10/23 07/10/23 04:00 04:00 05:00 05:33 Pulse 154 160 141 Resp 21 21 B/P (MAP) 113/84 (94) 123/91 (102) Pulse Ox 100 96 100 O2 Delivery Mechanical Ventilator Mechanical Ventilator Mechanical Ventilator O2 Flow Rate 100.00 100.00 FiO2 100 07/10/23 07/10/23 07/10/23 07/10/23 06:00 06:22 07:00 07:00 Pulse 160 151 140 132 Resp 11 21 8 B/P (MAP) 125/90 (102) 134/89 (100) Pulse Ox 100 100 100 O2 Delivery Mechanical Ventilator Mechanical Ventilator O2 Flow Rate 100.00 100.00 FiO2 80 07/10/23 07/10/23 07/10/23 07/10/23 07:20 07:23 08:00 08:00 Temp 35.8 Pulse 151 151 B/P (MAP) 122/87 122/87 Pulse Ox 96 O2 Delivery Mechanical Ventilator FiO2 100 07/10/23 07/10/23 07/10/23 07/10/23 08:00 08:09 09:00 09:30 Pulse 156 156 152 Resp 19 B/P (MAP) 123/95 (100) 123/95 118/78 (97) Pulse Ox 100 100 O2 Delivery Mechanical Ventilator Mechanical Ventilator Mechanical Ventilator O2 Flow Rate 100.00 100.00 50.00 07/10/23 07/10/23 07/10/23 07/10/23 09:49 10:00 11:00 11:08 Pulse 152 134 108 134 Resp 24 22 20 B/P (MAP) 118/78 109/77 (83) 107/76 (89) Pulse Ox 98 97 99 O2 Delivery Mechanical Ventilator Mechanical Ventilator O2 Flow Rate 50.00 40.00 FiO2 40 07/10/23 07/10/23 07/10/23 11:23 12:00 12:19 Pulse 134 63 63 B/P (MAP) 105/84 117/66 (85) 117/66 Pulse Ox 100 O2 Delivery Mechanical Ventilator O2 Flow Rate 40.00 07/10/23 00:00 Intake Total 2643 ml Output Total 575 ml Balance 2068 ml Capillary Refill : Less Than 3 Seconds Constitutional: other (intubated, on mech vent, unresponsive) HEENT: PERRL; No xanthelasmas are seen Neck: carotid pulses are 2 + bilaterally, with good upstrokes Respiratory: No accessory muscle use; chest expansion is symmetric, chest is bilaterally symmetric, other (fair air entry bilaterally) Cardiovascular: regular rate-rhythm, S1 and S2, systolic murmur (soft WENDY at card base) Gastrointestinal: distended; No guarding; audible bowel sounds Extremities: No clubbing, No cyanosis, No significant edema Neurologic/Psychiatric: other (intubated, on mech vent, unresponsive) Skin: normal color, warm/dry; No cyanosis, No cool, No diaphoresis, No rash on exposed areas, No ulcerations on exposed areas Lymphatic: no adenopathy Data Review Labs Laboratory Tests 07/09/23 15:55: 07/09/23 17:35: 07/09/23 21:25: Blood Gas Puncture Site LEFT RADIAL, Blood Gas Patient Temperature 37.7, Arterial Blood pH 7.29*L, Arterial Blood Partial Pressure CO2 46H, Arterial Blood Partial Pressure O2 70L, Arterial Blood HCO3 22L, Arterial Blood Total CO2 22.9, Arterial Blood Oxygen Saturation 92L, Arterial Blood Base Excess -3.8L, Bharathi Test YES-POS, Blood Gas Ventilator Setting NO, Blood Gas Inspired Oxygen 60% 07/09/23 21:31: Lactic Acid Level 1.85 07/09/23 23:13: Triglycerides Level 109 07/10/23 04:23: White Blood Count 23.3H, Red Blood Count 4.05L, Hemoglobin 11.1L, Hematocrit 37L , Mean Corpuscular Volume 92, Mean Corpuscular Hemoglobin 27, Mean Corpuscular Hemoglobin Concent 30L, Red Cell Distribution Width 14.9H, Platelet Count 152, Mean Platelet Volume 11.4, Immature Granulocyte % (Auto) 1, Neutrophils (%) (Auto) 91H, Lymphocytes (%) (Auto) 3L, Monocytes (%) (Auto) 5, Eosinophils (%) (Auto) 0, Basophils (%) (Auto) 0, Neutrophils # (Auto) 21.2H, Lymphocytes # (Au to) 0.7L, Monocytes # (Auto) 1.2H, Eosinophils # (Auto) 0.0, Basophils # (Auto) 0.0, Immature Granulocyte # (Auto) 0.3H, Sodium Level 140, Potassium Level 4.6, Chloride Level 111H, Carbon Dioxide Level 18L, Anion Gap 11, Blood Urea Nitrogen 21H, Creatinine 0.98, Estimat Glomerular Filtration Rate 85, BUN/Creatinine Ratio 21, Glucose Level 238H, Calcium Level 8.4L, Corrected Calcium 9.3, Phosphorus Level 2.5, Magnesium Level 2.2, Total Bilirubin 0.6, Aspartate Amino Transf (AST/SGOT) 43H, Alanine Aminotransferase (ALT/SGPT) 21, Alkaline Phosphatase 71, Total Protein 7.1, Albumin 2.9L 07/10/23 04:30: Blood Gas Puncture Site LEFT RADIAL, Blood Gas Patient Temperature 35.9, Arterial Blood pH 7.27*L, Arterial Blood Partial Pressure CO2 47H, Arterial Blood Partial Pressure O2 109H, Arterial Blood HCO3 21L, Arterial Blood Total CO2 22.4, Arterial Blood Oxygen Saturation 99, Arterial Blood Base Excess -5.1L, Bharathi Test YES-POS, Blood Gas Ventilator Setting YES, Blood Gas Inspired Oxygen 80% 07/10/23 11:37: Glucometer 202H Microbiology 07/10/23 Fungal Culture 1 - Preliminary, Resulted 07/08/23 Blood Culture - Preliminary, Resulted Laboratory Tests 07/08/23 16:09 07/09/23 04:25 07/10/23 04:23 A/P-Cardiology Assessment/Admission Diagnosis Acute resp failure of undetermined etiology - worsening resp status PAF, probably precipitated by ac resp failure - approx 16 hours of A Fib before converting to NSR on iv amiodarone at approx 1200 on 07/10/23 Crohn's disease Discussion and Recomendations * I discussed the case in detail with Dr Sharma, patient's hospitalist who had asked in consult: we recommend continuation of iv amiodarone; we recommend full dose enoxaparin (currently on DVT prophylaxis dose) if no contraindications * Agree with transfer to tertiary care facility ALEX BAHENA MD [facility] Jul 10, 2023 12:36
[2023-07-10] MEDS ORDERED: VANCOMYCIN 1250MG/250ML PREMIX 250 ML IV SCH (13:00)
--- NOTE | 2023-07-10 15:21 | OPERATIVE REPORT ---
DATE OF SERVICE: 07/10/2023 ATTENDING PRIMARY CARE PHYSICIAN: Dr. Orville Willard. ADMITTING PHYSICIAN: Dr Conner Sharma. PREOPERATIVE DIAGNOSES: Exacerbation COPD, respiratory failure, atrial fibrillation with rapid ventricular response. POSTOPERATIVE DIAGNOSES: Exacerbation COPD, respiratory failure, atrial fibrillation with rapid ventricular response. PROCEDURE: Left subclavian central venous catheter placement. SURGEON: Kera Guillory MD [place] MACHINE OPERATOR: Elvis Wren APRN ANESTHESIA: On ventilator and sedated. DISPOSITION: The patient tolerated the procedure well. INDICATIONS: The patient is a 68-year-old male with a longstanding history of COPD. He had developed a nonproductive cough, fevers as well as worsening shortness of breath. He was found to have bilateral pneumonia and was treated. The patient returned to the Emergency Department with again worsening shortness of breath as well as fevers and was found to be hypoxic with oxygen saturation 84%. The patient is also immunocompromised due to being on Remicade for Crohn's disease. The patient was also found to be in atrial fibrillation with a rapid ventricular response. The patient is showing signs of septic shock and will require a central venous catheter. The chest and neck were prepped and draped in standard surgical fashion. The left subclavian vein was then cannulated with drawing of venous blood. The guidewire was then inserted without any resistance. Cannulating needle removed and a skin incision made using 11 blade. A tract was then created using a venous dilator and through this tract, a triple lumen central venous catheter was placed over the guidewire using the Seldinger technique and the guidewire removed. All 3 ports hill venous blood and saline pushed in without any resistance. The catheter was then sutured to the skin using 3-0 silk sutures. Catheter was then cleaned and covered with Op-Site. The patient tolerated the procedure well. We will get a post-procedure chest x-ray. Job ID: [id number] DocumentID: [id number] Dictated Date: 07/10/2023 10:40:46 Region Manager Date: 07/10/2023 15:19:00 Dictated By: KERA GUILLORY MD
== END 2023-07-10 12:30 | disposition short-term general hospital (02) | DRG 871 ==
LOC: ER FS 16:00 → EDUNIT# 16:00 → ICU 20:36
PROVIDERS: ADMIT Internal Medicine; ATTEND Internal Medicine
PROC: 5A09457 Assistance with Respiratory Ventilation, 24-96 Consecutive Hours, Continuous Positive Airway Pressure (ICD-10-PCS; 2023-07-08)
PROC: 5A0935A Assistance with Respiratory Ventilation, Less than 24 Consecutive Hours, High Flow/Velocity Cannula (ICD-10-PCS; 2023-07-08)
PROC: 5A1935Z Respiratory Ventilation, Less than 24 Consecutive Hours (ICD-10-PCS; principal; 2023-07-09)
PROC: 0BH17EZ Insertion of Endotracheal Airway into Trachea, Via Natural or Artificial Opening (ICD-10-PCS; 2023-07-09)
PROC: 02HV33Z Insertion of Infusion Device into Superior Vena Cava, Percutaneous Approach (ICD-10-PCS; 2023-07-10)
DX: A41.9 Sepsis, unspecified organism (principal); J18.9 Pneumonia, unspecified organism; J96.22 Acute and chronic respiratory failure with hypercapnia; J96.21 Acute and chronic respiratory failure with hypoxia; J44.1 Chronic obstructive pulmonary disease with (acute) exacerbation; J44.0 Chronic obstructive pulmonary disease with (acute) lower respiratory infection; K50.90 Crohn's disease, unspecified, without complications; E24.9 Cushing's syndrome, unspecified; R65.20 Severe sepsis without septic shock; I48.0 Paroxysmal atrial fibrillation; G47.33 Obstructive sleep apnea (adult) (pediatric); E78.00 Pure hypercholesterolemia, unspecified; I10 Essential (primary) hypertension; N40.0 Benign prostatic hyperplasia without lower urinary tract symptoms; E66.01 Morbid (severe) obesity due to excess calories; Z68.35 Body mass index [BMI] 35.0-35.9, adult; F32.A Depression, unspecified; M19.90 Unspecified osteoarthritis, unspecified site; Z87.891 Personal history of nicotine dependence; Z85.828 Personal history of other malignant neoplasm of skin; Z88.5 Allergy status to narcotic agent; Z91.09 Other allergy status, other than to drugs and biological substances; Z79.899 Other long term (current) drug therapy
CPT/HCPCS: 36415; 36600; 71045; 80053; 82805; 82947; 83605; 83615; 83735; 83880; 84100; 84478; 85007; 85025; 85027; 85610; 85730; 87040; 87081; 87101; 87281; 87449; 93005; 94002; 94003; 94640; 94660; 94799